=== PATIENT | female | born 1960 | race Caucasian/White ===

== ENCOUNTER 2016-08-21 23:45 | Emergency (ER) | payer MEDICARE ==
[2016-08-22 00:01] VITALS: RESP 18
[2016-08-22] MEDS ORDERED: HYDROmorphone 1 MG/ML 1 ML SYRINGE IM STA (01:38)
--- NOTE | 2016-08-22 01:41 | ED ---
Back Pain HPI - General Chief Complaint: Back Pain/Injury Stated Complaint: back/neck pain Time Seen by Provider: 08/22/16 01:15 Source: patient, RN notes reviewed Limitations: no limitations - History of Present Illness Initial Comments: Patient is a 56-year-old female presents to the emergency room for evaluation of back pain. Patient states she has a history of chronic back pain. Patient states she's had multiple surgeries on her lower back and neck. Patient states that over the past 2 days and having increasing low back pain. Patient states that she was helping her friend move 2 heavy refrigerators which worsened her back pain. Patient states the pain radiates down her legs. Patient denies paresthesias. Patient denies fecal or urinary incontinence. Patient denies saddle anesthesia. Patient states that she has not had any pain medications at home. Patient states that she took 2 of her friends [place] with slight relief of symptoms. Patient denies any recent fall or trauma to her back. Patient states she can't get comfortable secondary to back pain. Patient states this feels like her usual back pain. Patient denies any new symptoms. - Related Data Home Medications Medication Instructions Recorded Confirmed Cyclobenzaprine [Flexeril] 10 mg PO HS 08/22/16 08/22/16 HYDROcodone/APAP 10-325MG [[place] 08/22/16 10-325] Previous Rx's Medication Instructions Recorded HYDROcodone/APAP 5-325MG [[place] 1 tab PO Q6HR PRN #12 tab 08/22/16 5-325] Allergies Allergy/AdvReac Type Severity Reaction Status Date / Time gentamicin Allergy Anaphylaxis Verified 08/22/16 00:01 Review of Systems ROS Statement: Those systems with pertinent positive or pertinent negative responses have been documented in the HPI. ROS Other: All systems not noted in ROS Statement are negative. Past Medical History Past Medical History: Asthma, CVA/TIA History of Any Multi-Drug Resistant Organisms: None Reported Past Surgical History: Back Surgery Additional Past Surgical History / Comment(s): neck sx. Past Psychological History: No Psychological Hx Reported Smoking Status: Current every day smoker Past Alcohol Use History: Occasional Past Drug Use History: Marijuana General Exam - General Exam Comments Initial Comments: Sitting in exam room, no acute distress. Limitations: no limitations General appearance: alert, in no apparent distress Head exam: Present: atraumatic, normocephalic, normal inspection Eye exam: Present: normal appearance ENT exam: Present: normal exam Neck exam: Present: normal inspection Respiratory exam: Absent: respiratory distress Extremities exam: Present: normal inspection Back exam: Present: normal inspection. Absent: paraspinal tenderness, vertebral tenderness Neurological exam: Present: alert, oriented X3, CN II-XII intact Psychiatric exam: Present: normal affect, normal mood Skin exam: Present: warm, dry, intact, normal color. Absent: rash Course Vital Signs 08/21/16 08/22/16 23:56 02:17 Temperature 98.0 F 98.1 F Pulse Rate 91 89 Respiratory 18 18 Rate Blood Pressure 152/84 148/87 O2 Sat by Pulse 94 L 95 Oximetry Medical Decision Making - Medical Decision Making Patient is a 56-year-old female presents to the emergency room for evaluation of acute on chronic back pain. Patient given pain medications and advised follow-up with primary care provider mobile paint specialist. Patient has no neuro deficits. Patient states she understands everything that was discussed with her. Return parameters discussed. Disposition Clinical Impression: Acute exacerbation of chronic low back pain Disposition: HOME SELF-CARE Condition: Good Instructions: Chronic Back Pain (ED) Additional Instructions: Take [place] as needed for pain. Please follow up with primary care provider mobile paint specialist. If any new symptom arises or symptoms worsen, return to ER as soon as possible. Prescriptions: HYDROcodone/APAP 5-325MG [[place] 5-325] 1 tab PO Q6HR PRN #12 tab PRN Reason: Pain Referrals: None,Stated [Primary Care Provider] - 1-2 days Time of Disposition: 01:50
[2016-08-22 02:18] VITALS: BP 148/87; PULSE 89; TEMP 98.1
== END 2016-08-22 02:18 | disposition home or self-care (01) ==
LOC: EC 23:45
DX: G89.29 Other chronic pain (principal); M54.5 Low back pain; F17.200 Nicotine dependence, unspecified, uncomplicated; Z79.899 Other long term (current) drug therapy; Z79.891 Long term (current) use of opiate analgesic; Z88.0 Allergy status to penicillin; Z98.890 Other specified postprocedural states
CPT/HCPCS: 99283; 96372; J1170

== ENCOUNTER 2016-09-29 18:17 | Emergency (ER) | payer MEDICARE ==
[2016-09-29 18:42] VITALS: BP 154/88; PULSE 82; RESP 18; TEMP 97
[2016-09-29] MEDS ORDERED: ORPHENADRINE 30 MG/ML 2 ML VIAL IM STA (18:56)
[2016-09-29] MEDS ORDERED: HYDROcodone/APAP 10-325MG 1 EACH TAB PO ONE (18:56)
[2016-09-29] MEDS ORDERED: KETOROLAC 60 MG/2 ML VIAL IM STA (18:56)
--- NOTE | 2016-09-29 19:16 | ED ---
Back Pain HPI - General Chief Complaint: Back Pain/Injury Stated Complaint: back pain Time Seen by Provider: 09/29/16 18:44 Source: patient, RN notes reviewed, old records reviewed Limitations: no limitations - History of Present Illness Initial Comments: 48-year-old female presents the ED chief complaint of acute exacerbation of chronic back pain. Patient reports that she was lifting a couch and yesterday he noticed that her pain back pain has been getting worse. She reports that she is just been taking Motrin with little relief of the pain. She states that she did not fall. She denies any saddle anesthesia peripheral paresthesias. She reports that she has no abnormal popping in her back and does have full range of motion just with increased pain with movement. She states it mainly is in the lower back does not have any radiation to bilateral legs. Patient denies any recent fever, chills, shortness of breath, chest pain, back pain, abdominal pain, nausea vomiting, numbness or tingling, dysuria or hematuria, constipation or diarrhea, headaches or visual changes, or any other current symptoms - Related Data Home Medications Medication Instructions Recorded Confirmed Advair (Unknown Dose) 1 puff INHALATION RT-DAILY PRN 09/29/16 09/29/16 Previous Rx's Medication Instructions Recorded Cyclobenzaprine [Flexeril] 10 mg PO TID #15 tab 09/29/16 HYDROcodone/APAP 10-325MG [[place] 1 tab PO Q4HR PRN #15 tab 09/29/16 10-325] Allergies Allergy/AdvReac Type Severity Reaction Status Date / Time gentamicin Allergy Anaphylaxis Verified 09/29/16 19:08 Review of Systems ROS Statement: Those systems with pertinent positive or pertinent negative responses have been documented in the HPI. ROS Other: All systems not noted in ROS Statement are negative. Past Medical History Past Medical History: Asthma, CVA/TIA History of Any Multi-Drug Resistant Organisms: None Reported Past Surgical History: Back Surgery Additional Past Surgical History / Comment(s): neck sx. spleenectomy Past Psychological History: No Psychological Hx Reported Smoking Status: Current every day smoker Past Alcohol Use History: Rare Past Drug Use History: None Reported General Exam - General Exam Comments Initial Comments: Well-appearing 48-year-old female. No acute distress. Limitations: no limitations General appearance: alert, in no apparent distress Head exam: Present: atraumatic, normocephalic, normal inspection Eye exam: Present: normal appearance, PERRL, EOMI. Absent: scleral icterus, conjunctival injection, periorbital swelling ENT exam: Present: normal exam, mucous membranes moist Neck exam: Present: normal inspection. Absent: tenderness, meningismus, lymphadenopathy Respiratory exam: Present: normal lung sounds bilaterally. Absent: respiratory distress, wheezes, rales, rhonchi, stridor Cardiovascular Exam: Present: regular rate, normal rhythm, normal heart sounds. Absent: systolic murmur, diastolic murmur, rubs, gallop, clicks GI/Abdominal exam: Present: soft, normal bowel sounds. Absent: distended, tenderness, guarding, rebound, rigid Extremities exam: Present: normal inspection, full ROM, normal capillary refill. Absent: tenderness, pedal edema, joint swelling, calf tenderness Back exam: Present: normal inspection, tenderness (Lumbar spinal tenderness.) Neurological exam: Present: alert, oriented X3, CN II-XII intact Psychiatric exam: Present: normal affect, normal mood Skin exam: Present: warm, dry, intact, normal color. Absent: rash Course Vital Signs 09/29/16 18:40 Temperature 97.0 F L Pulse Rate 82 Respiratory 18 Rate Blood Pressure 154/88 O2 Sat by Pulse 97 Oximetry Medical Decision Making - Medical Decision Making 48-year-old female chief complaint acute exacerbation of chronic back pain after lifting a couch. She states she has no falls or any other known injuries. Patient elects to not receive imaging studies at this time. Discusses 100% necessary given her symptoms she she is given IM Toradol and Norflex in one by mouth [place]. Patient will be discharged with Flexeril and [place]. Discussed close follow-up with primary care physician. Patient agrees treatment plan will comply. Return parameters were discussed. Disposition Clinical Impression: Acute exacerbation of chronic low back pain Disposition: HOME SELF-CARE Condition: Good Instructions: Acute Low Back Pain (ED) Additional Instructions: Patient is to rest, ice, and apply heat to lower back. Take the medications as directed. Follow-up with a primary care physician. Return to the emergency department if any alarming symptoms occur. Prescriptions: Cyclobenzaprine [Flexeril] 10 mg PO TID #15 tab HYDROcodone/APAP 10-325MG [[place] 10-325] 1 tab PO Q4HR PRN #15 tab PRN Reason: Pain Referrals: None,Stated [Primary Care Provider] - 1-2 days Bhavani Weaver MD [STAFF PHYSICIAN] - 1-2 days Time of Disposition: 19:15
== END 2016-09-29 19:23 | disposition home or self-care (01) ==
LOC: EC 18:17
DX: G89.29 Other chronic pain (principal); M54.5 Low back pain; F17.200 Nicotine dependence, unspecified, uncomplicated; Z88.1 Allergy status to other antibiotic agents; Z98.890 Other specified postprocedural states
CPT/HCPCS: 99283; 96372 ×2; J2360; J1885

== ENCOUNTER 2016-11-19 11:00 | Emergency (ER) | payer MEDICARE, OTHER ==
[2016-11-19 11:17] VITALS: BP 138/78; PULSE 94; RESP 18; TEMP 97.8
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
[2016-11-19] MEDS ORDERED: HYDROcodone/APAP 7.5-325MG 1 EACH TAB PO STA (11:45)
== END 2016-11-19 11:55 | disposition home or self-care (01) ==
LOC: EC 11:00
DX: M54.32 Sciatica, left side (principal); M54.31 Sciatica, right side; F17.200 Nicotine dependence, unspecified, uncomplicated; Z88.1 Allergy status to other antibiotic agents
CPT/HCPCS: 99283

== ENCOUNTER → 2017-04-19 | Outpatient (CLI) | payer MEDICARE, OTHER ==
[2017-04-19 14:43] LABS: T4, Free (Free Thyroxine) 2.28 ng/dL (0.78-2.19)
== END | disposition home or self-care (01) ==
LOC: LABWHC1 13:28
PROVIDERS: ATTEND Physician Assistant
DX: R03.0 Elevated blood-pressure reading, without diagnosis of hypertension (principal)
CPT/HCPCS: 36415; 84439; 84443

== ENCOUNTER 2017-06-30 12:11 | Emergency (ER) | payer MEDICARE, OTHER ==
[2017-06-30 12:39] VITALS: BP 138/88; PULSE 79; RESP 18; TEMP 97.6
[2017-06-30] MEDS ORDERED: KETOROLAC 30 MG/ML 1 ML VIAL IM STA (13:29)
--- NOTE | 2017-06-30 13:34 | XR ---
EXAMINATION TYPE: XR hand complete LT DATE OF EXAM: 06/30/2017 CLINICAL HISTORY: pain TECHNIQUE: Frontal, lateral and oblique images of the left hand are obtained. COMPARISON: None. FINDINGS: There is no acute fracture/dislocation evident. The joint spaces appear within normal limi ts. The overlying soft tissue appears unremarkable. IMPRESSION: There is no acute fracture or dislocation. ICD 10 NO FRACTURE, INITIAL EVALUATION
--- NOTE | 2017-06-30 13:38 | XR ---
EXAMINATION TYPE: XR forearm LT DATE OF EXAM: 06/30/2017 CLINICAL HISTORY: Pain and swelling down arm into hand. TECHNIQUE: Two views of the left forearm are obtained. COMPARISON: None. FINDINGS: There is no acute fracture or dislocation seen in the left radius or ulna. The left elbow and wrist joints appear within normal limits. The overlying soft tissue appears within normal limit s. IMPRESSION: There is no acute fracture or dislocation seen in the left radius or ulna.
--- NOTE | 2017-06-30 14:11 | ED ---
General Adult HPI - General Chief complaint: Extremity Injury, Upper Stated complaint: Elbow to hand pain, Numbness in hand Time Seen by Provider: 06/30/17 12:59 Source: patient, RN notes reviewed Mode of arrival: ambulatory Limitations: no limitations - History of Present Illness Initial comments: 57-year-old female presents to the emergency department for a chief complaint of left upper extremity pain 6 months. Patient states the pain as a sharp shooting pain from her elbow into her fourth and fifth digit. Patient also has numbness in the fourth and fifth digits. Patient states she seen her primary care provider for this to set up a neurology appointment for her in 3 weeks. Patient states she also used to have a pain specialist but stopped going to him because she didn't like his methods. She is trying to get set up with another pain specialist through her primary care. Patient states the pain was worse last night and she now has a burning pain in the fourth and fifth digits of her left hand. Patient denies any recent injuries. The patient denies any chest pain or shortness of breath. Patient states she has chronic back problems including multiple back surgeries. Patient denies any back pain at this time. Patient denies any pain in the upper part of the arm or shoulder. Patient denies any other complaints at this time including chest pain, shortness of breath, abdominal pain, nausea or vomiting. - Related Data Previous Rx's Medication Instructions Recorded Aspirin 81 mg PO DAILY chew 04/06/17 Budesonide [Pulmicort Flexhaler] 2 puff INHALATION BID #1 inhaler 04/06/17 Ipratropium [place] [Atrovent Hfa] 2 puff INHALATION QID #1 inhaler 04/06/17 Melatonin 3 mg PO HS tablet 04/06/17 Nicotine 21Mg/24Hr Patch [Habitrol] 1 patch TRANSDERM DAILY #30 patch 04/06/17 Nicotine Polacrilex [Nicorette] 2 mg BUCCAL Q4HR PRN #30 gum 04/06/17 predniSONE 10 mg PO DAILY #30 tab 04/06/17 Ibuprofen [Motrin] 600 mg PO Q8HR PRN #20 tab 06/30/17 methylPREDNISolone Dose Pack 4 mg PO DIRECTED #21 package 06/30/17 [Medrol Dose Pack] Allergies Allergy/AdvReac Type Severity Reaction Status Date / Time gentamicin Allergy Anaphylaxis Verified 06/30/17 12:39 Review of Systems ROS Statement: Those systems with pertinent positive or pertinent negative responses have been documented in the HPI. ROS Other: All systems not noted in ROS Statement are negative. 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 spleenectomy-d/ t injury; benign R Breast lumpectomy, sinus sx Past Anesthesia/Blood Transfusion Reactions: No Reported Reaction Past Psychological History: Depression Smoking Status: Current every day smoker Past Alcohol Use History: Rare Past Drug Use History: None Reported - Past Family History Mother Family Medical History: Cancer Additional Family Medical History / Comment(s): Father History Unknown: Yes General Exam Limitations: no limitations General appearance: alert, in no apparent distress Head exam: Present: atraumatic, normocephalic, normal inspection Eye exam: Present: normal appearance, PERRL, EOMI. Absent: scleral icterus, conjunctival injection, periorbital swelling Neck exam: Present: normal inspection, full ROM. Absent: tenderness, meningismus, lymphadenopathy Respiratory exam: Present: normal lung sounds bilaterally. Absent: respiratory distress, wheezes, rales, rhonchi, stridor Cardiovascular Exam: Present: regular rate, normal rhythm, normal heart sounds. Absent: systolic murmur, diastolic murmur, rubs, gallop, clicks Extremities exam: Present: full ROM (of the LUE. ), normal capillary refill ( Cap refill < 2 seconds in LUE. Radial pulse 2+ in the LUE. ), other (Patient states she has numbness and tingling in the fourth and fifth digit of the left hand and pain in the left arm from the elbow to the fingers. Patient does have intact sensation in the left upper extremity including the fourth and fifth digits of the right hand. Patient has full strength in the left hand including digits adduction and abduction. Patient has full range of motion of the right hand. ). Absent: tenderness (No tenderness in the LUE. No tenderness at the area of ulnar entrapment medial epicondyle.), pedal edema, joint swelling (No swelling in the LUE.), calf tenderness Course Vital Signs 06/30/17 12:37 Temperature 97.6 F Pulse Rate 79 Respiratory 18 Rate Blood Pressure 138/88 O2 Sat by Pulse 95 Oximetry Medical Decision Making - Medical Decision Making 57-year-old female presents to the emergency department for a chief complaint of left upper extremity pain from the elbow to the hand 6 months. Patient states it has worsened in the past couple weeks. Patient has an appointment with neurology July 20 a set up by her primary care provider for this problem. Patient has had pain specialists in the past but does not have one at this time. Patient complains of sharp pain from the elbow to the hand and numbness in the fourth and fifth digits of the left hand. Patient denies any pain in her shoulder or upper arm. Patient denies any other complaints including chest pain, shortness of breath, abdominal pain, nausea or vomiting. Vitals are within normal limits. Exam was unremarkable. Patient has full range of motion of the left upper extremity, no joint swelling, intact sensation in the left hand, and full range of motion and strength in the left hand. Neurovascular intact. patient has a history of back surgeries although no pain in the back today. Discussed with Dr. Fang And he agrees this is likely related to a nerve disorder. Patient was given Toradol in the emergency department and is feeling much better. Discussed with patient to continue taking Motrin as well as a steroid pack for inflammation. Patient stated that she has bought opioids "on the street" in the past so was given a prescription of only Motrin in the steroid pack. She is to follow-up in one to 2 days with primary care. She is to try to move her neurology appointment up. If she cannot move it closer to today's date she will attend the appointment on the . She will return to the emergency Department if she has any worsening or changing symptoms Disposition Clinical Impression: Paresthesia Disposition: HOME SELF-CARE Condition: Good Instructions: Paresthesia (ED) Additional Instructions: Please take the steroid pack as directed as well as Motrin or Tylenol for pain relief. Please return to the emergency department if you have any worsening symptoms. Otherwise follow-up with your primary care provider in one to 2 days and attend your neurology appointment on July 20. Prescriptions: Ibuprofen [Motrin] 600 mg PO Q8HR PRN #20 tab PRN Reason: Pain methylPREDNISolone Dose Pack [Medrol Dose Pack] 4 mg PO DIRECTED #21 package Is patient prescribed a controlled substance at d/c from ED?: No Referrals: Fidencio Lee DO [Primary Care Provider] - 1-2 days Time of Disposition: 14:12
== END 2017-06-30 14:36 | disposition home or self-care (01) ==
LOC: EC 12:11 → SUPCPDRO 12:11 → EC 14:36
DX: R20.2 Paresthesia of skin (principal); M25.522 Pain in left elbow; M79.642 Pain in left hand; M79.645 Pain in left finger(s); M79.602 Pain in left arm; F17.200 Nicotine dependence, unspecified, uncomplicated; Z88.1 Allergy status to other antibiotic agents
CPT/HCPCS: 73090; 73130; 99283; 96372; J1885

== ENCOUNTER → 2017-08-07 | Outpatient (CLI) | payer MEDICARE, OTHER ==
--- NOTE | 2017-08-08 00:20 | MR ---
EXAMINATION TYPE: MR michelet/lsannita wo con DATE OF EXAM: 08/07/2017 COMPARISON: NONE HISTORY: Neck pain. Back pain. TECHNIQUE: Multiplanar, multisequence imaging of the lumbar spine and cervical spine is performed wit hout IV contrast. FINDINGS: There is metal artifact from anterior fusion surgery from C3 to C7. There is degenerative disc space narrowing throughout the cervical spine. I see no compression fracture. Detail is limited from the me dominga artifact. Cervical spinal cord shows no edema. Brainstem appears intact. There is small posterior disc bulging at C7-T1 and T1-T2. There is no evidence of cervical spinal cord edema. I see no parasp inal mass. There is some narrowing of the spinal canal to 8 mm at C7-T1. There is 7 mm anterior subluxation of L3 in relation L4. There is mild degenerative disc space narrow ing throughout the lumbar spine more severe at L5-S1. There is posterior fusion surgery at L4 L5 S1. There appears to be a moderately severe spinal stenosis at L3-4 due to the subluxation and facet arth ropathy. The detail is slightly limited due to the metal artifact. There is 10 mm cyst in the posteri or right kidney. There is no lumbar compression fracture. IMPRESSION: In the cervical spine there is some mild relative spinal stenosis at C7-T1 of 8 mm. No evidence of co rd edema. No fracture. Multilevel fusion surgery. Degenerative first-degree L3-4 spondylolisthesis with moderate bony spinal stenosis at L3-4. No compr ession fracture. Posterior fusion surgery.
== END | disposition home or self-care (01) ==
LOC: RADMRIMAIN 17:01
PROVIDERS: ATTEND Family Medicine
DX: M48.03 Spinal stenosis, cervicothoracic region (principal); M43.16 Spondylolisthesis, lumbar region; M48.061 Spinal stenosis, lumbar region without neurogenic claudication; M47.816 Spondylosis without myelopathy or radiculopathy, lumbar region; Z98.1 Arthrodesis status
CPT/HCPCS: 72141; 72148

== ENCOUNTER → 2017-08-09 | Outpatient (CLI) | payer MEDICARE, OTHER ==
--- NOTE | 2017-08-10 16:26 | MR ---
EXAMINATION TYPE: MR thoracic spine wo con DATE OF EXAM: 08/09/2017 COMPARISON: MRI of the cervical spine and lumbar spine dated 08/07/2017. HISTORY: Other Chronic Pain TECHNIQUE: Standard multiplanar, multisequence MRI of the thoracic spine was performed per department al protocol without intravenous contrast as the patient refused contrast. FINDINGS: The vertebral bodies of the thoracic spine maintain vertebral body heights and alignment. S urgical changes seen of the cervical spine on the localizer images. The previously seen disc bulge at C7-T1 is not well visualized as axial images begin at T1-T2. Thoracic cord signal is unremarkable. T1-T2: There is a small broad-based disc bulge without spinal canal stenosis or neural foraminal narr owing. T2-T3: There is a right eccentric disc bulge creating moderate right neural foraminal narrowing and m ild spinal canal stenosis as there is narrowing of the ventral subarachnoid space. Left neural forame n appears patent. T3-T4: There is a small broad-based disc bulge without focality to indicate herniation. This results in mild left and moderate right neural foraminal narrowing. No spinal canal stenosis. T4-T5: There is a very small broad-based disc bulge without spinal canal stenosis or neural foraminal narrowing. T5-T6: There is a very small broad-based disc bulge without spinal canal stenosis or neural foraminal narrowing. T6-T9: No significant spinal canal stenosis or neural foraminal narrowing. No significant disc diseas e. T9-T10: There is a very small central disc herniation minimally narrowing the ventral subarachnoid sp ching. No significant spinal canal stenosis. No neural foraminal narrowing is seen. T10-T11: There is a small broad-based disc bulge resulting in minimal bilateral neural foraminal narr owing. No spinal canal stenosis. T11-T12: No significant spinal canal stenosis, disc disease, neuroforaminal narrowing. T12-L1: There is a small right eccentric disc bulge without significant spinal canal stenosis or neur al foraminal narrowing. IMPRESSION: 1. Right eccentric disc bulge at T2-T3 creating moderate right neural foraminal narrowing and mild sp inal canal stenosis. 2. Small broad-based disc bulge at T3-T4 resulting in mild left and moderate right neural foraminal n arrowing. No spinal canal stenosis. 3. Very small central disc herniation at T9-T10 without spinal canal stenosis or neural foraminal petrona rowing. 4. No evidence of abnormal bone marrow signal, vertebral body height loss, or malalignment. No abnorm al thoracic cord signal.
== END | disposition home or self-care (01) ==
LOC: RADMRIMAIN 13:19
PROVIDERS: ATTEND Family Medicine
DX: M48.04 Spinal stenosis, thoracic region (principal); M99.72 Connective tissue and disc stenosis of intervertebral foramina of thoracic region; M51.24 Other intervertebral disc displacement, thoracic region
CPT/HCPCS: 72146

== ENCOUNTER 2017-10-02 11:20 | Emergency (ER) | payer MEDICARE, OTHER ==
[2017-10-02 11:52] VITALS: BP 154/90; PULSE 79; RESP 18; TEMP 98.3
--- NOTE | 2017-10-02 12:17 | XR ---
EXAMINATION TYPE: XR wrist complete LT DATE OF EXAM: 10/02/2017 CLINICAL HISTORY: Fall and subsequent left wrist pain TECHNIQUE: Frontal, lateral and oblique images of the left wrist are obtained. Scaphoid view of the left wrist was also obtained. COMPARISON: None FINDINGS: There is mild osseous demineralization. There is no acute fracture/dislocation evident in t he left wrist. The joint spaces in the left wrist appear within normal limits. The overlying soft t issue appears unremarkable. IMPRESSION: There is no acute fracture or dislocation in the left wrist.
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
== END 2017-10-02 12:45 | disposition home or self-care (01) ==
LOC: EC 11:20
DX: S69.92XA Unspecified injury of left wrist, hand and finger(s), initial encounter (principal); F17.200 Nicotine dependence, unspecified, uncomplicated; Z86.73 Personal history of transient ischemic attack (TIA), and cerebral infarction without residual deficits; Z88.1 Allergy status to other antibiotic agents; V18.4XXA Pedal cycle driver injured in noncollision transport accident in traffic accident, initial encounter; Y93.55 Activity, bike riding
CPT/HCPCS: 29125; 99283

== ENCOUNTER → 2017-12-06 | Outpatient (CLI) | payer MEDICARE, OTHER ==
--- NOTE | 2017-12-07 15:15 | MR ---
MR brain without contrast HISTORY: Migraine headache multiplanar multisequence imaging obtained through the brain. No comparisons Patient refused intravenous contrast There is no restricted diffusion to suggest subacute ischemia. There is no hemorrhage or hydrocephalu s. Inflammatory changes are present in the bilateral mastoid air cells. Mucoperiosteal thickening pre sent in the maxillary sinuses, ethmoid air cells. Orbits show symmetric appearance. There are normal vascular flow voids. Cerebellopontine angles, corpus callosum, pituitary, cervical medullary junction are normal. Periventricular, pericallosal, subcortical and deep white matter hyperintensities are pr esent on inversion recovery and T2-weighted sequences, there are approximately 30 lesions present, la rgest in the posterior parietal white matter, axial image 19 measures 7-8 mm. IMPRESSION: Nonspecific white matter demyelination, consider hypertension, migraine headaches, chroni c small vessel ischemia and vasculitis, multiple sclerosis in the appropriate clinical setting, Lyme disease. Bilateral abnormal signal within the mastoid air cells, temporal bone CT may be of benefit, consider mastoiditis. Sinus disease.
== END | disposition home or self-care (01) ==
LOC: RADMRIMAIN 19:12
PROVIDERS: ATTEND Family Medicine
DX: G37.9 Demyelinating disease of central nervous system, unspecified (principal); G43.909 Migraine, unspecified, not intractable, without status migrainosus; I67.82 Cerebral ischemia; I67.7 Cerebral arteritis, not elsewhere classified; A69.20 Lyme disease, unspecified
CPT/HCPCS: 70551

== ENCOUNTER → 2019-04-05 | Outpatient (CLI) | payer MEDICARE, OTHER ==
[2019-04-05 12:04] LABS: Basophils # (A) 0.4 k/uL (0-0.2); Basophils % (A) 3 %; Eosinophils # (A) 0.2 k/uL (0-0.7); Eosinophils % (A) 2 %; HCT 47.7 % (34.0-46.0); HGB 14.4 gm/dL (11.4-16.0); Hypochromasia Slight; Lymphocytes # (A) 4.3 k/uL (1.0-4.8); Lymphocytes % (A) 36 %; MCH 26.8 pg (25.0-35.0); MCHC 30.2 g/dL (31.0-37.0); MCV 88.6 fL (80.0-100.0); Mean Platelet Volume 7.9; Monocytes # (A) 0.8 k/uL (0-1.0); Monocytes % (A) 6 %; Neutrophils # (A) 6.2 k/uL (1.3-7.7); Neutrophils % (A) 51 %; Platelet Count 517 k/uL (150-450); RBC 5.38 m/uL (3.80-5.40); WBC 12.1 k/uL (3.8-10.6)
[2019-04-05 12:13] LABS: Appearance,Urine Cloudy (Clear); Bacteria,Urine Moderate /hpf; Bilirubin,Urine Negative (Negative); Blood,Urine Moderate (Negative); Budding Yeast,Urine Moderate /hpf; Color,Urine Yellow; Glucose,Urine (UA) Negative (Negative); Ketones,Urine Negative (Negative); Leukocyte Esterase,Urine Large (Negative); Mucus,Urine Few /hpf; Nitrite,Urine Negative (Negative); PH, Urine 5.5 (5.0-8.0); Protein,Urine 2+ (Negative); RBC,Urine >182 /hpf (0-5); Urobilinogen,Urine <2.0 mg/dL (<2.0); WBC,Urine >182 /hpf (0-5)
[2019-04-05 12:16] LABS: African American GFR (CKD) >90 (>60 ml/min/1.73 sqM); Anion Gap 9 mmol/L; Blood Urea Nitrogen 13 mg/dL (7-17); Calcium 9.8 mg/dL (8.4-10.2); Carbon Dioxide 26 mmol/L (22-30); Chloride 108 mmol/L (98-107); Glucose 101 mg/dL (74-99); Non-African American GFR(CKD) >90 (>60 ml/min/1.73 sqM); Potassium 4.2 mmol/L (3.5-5.1); Sodium 143 mmol/L (137-145)
== END | disposition home or self-care (01) ==
LOC: LABPAT 11:26
DX: Z01.812 Encounter for preprocedural laboratory examination (principal); N20.1 Calculus of ureter; R31.21 Asymptomatic microscopic hematuria
CPT/HCPCS: 36415; 80048; 81001; 85025; 87086

== ENCOUNTER 2019-04-30 13:09 | Day surgery (SDC) | payer MEDICARE, OTHER ==
[2019-04-25 11:11] VITALS: BMI 35.6
--- NOTE | 2019-04-29 15:47 | P.HPIHPCON ---
History of Present Illness H&P Date: 04/30/19 Chief Complaint: ureteral stone Ms Saxena is 58 yo female with hx of 5 mm left sided ureteral stone and right sided non-obstructive stone. She is S/P ureteral stent placement for septic stone on 02/22/19. I discussed with her the option of bilateral ureteroscopy to address her kidney stones. I discussed with her the risk of bleeding, infection, injury to the ureter and sepsis. I also discussed risk from anesthesia with her which include heart attack, stroke, blood clots and even loss of life. I did discussed her she is at an increased risk of complication given her hx of sepsis and recurrent UTIs Consent for Procedure: I have explained the operation/procedure to the patient, including the risks, benefits, side effects, alternative therapies (including not receiving the proposed treatment or service), the likelihood of the patient achieving his/her goals, and potential recuperation problems for the procedure/sedation/analgesia, as well as any blood products, if indicated. I also explained to the patient the risks, benefits and side effects of the alternatives, as well as the risks related to not receiving the proposed procedure, care, treatment, or services. Past Medical History Past Medical History: Asthma, CVA/TIA, Liver Disease, Musculoskeletal Disorder Additional Past Medical History / Comment(s): back pain; "several tia's-Last TIA 1 1/2 YEARS AGO, pluerisy, migraines, past falls, KIDENY STONES History of Any Multi-Drug Resistant Organisms: None Reported Past Surgical History: Back Surgery, Breast Surgery, Hysterectomy Additional Past Surgical History / Comment(s): back sx, neck sx. spleenectomy- d/t injury; benign R Breast lumpectomy, sinus sx, BILAT URETEROSCOPY, PLASTIC SX TO FACE Past Anesthesia/Blood Transfusion Reactions: No Reported Reaction Smoking Status: Current every day smoker - Past Family History Mother Family Medical History: Cancer Additional Family Medical History / Comment(s): Father History Unknown: Yes Family Medical History: No Reported History Medications and Allergies Home Medications Medication Instructions Recorded Confirmed Type Albuterol Inhaler [Ventolin Hfa 1 - 2 puff INHALATION RT-Q6H PRN 04/11/19 04/25/19 History Inhaler] Aspirin 325 mg PO DAILY 04/11/19 04/25/19 History Fluticasone/Salmeterol [Advair 1 inhalation PO BID PRN 04/11/19 04/25/19 History 500-50 Diskus] HYDROcodone/APAP 10-325MG [[place]arker 1 tab PO Q4-6H PRN 04/11/19 04/25/19 History 10-325] Cephalexin [Keflex] 250 mg PO Q8HR 04/25/19 04/25/19 History Allergies Allergy/AdvReac Type Severity Reaction Status Date / Time gentamicin Allergy Anaphylaxis Verified 04/25/19 10:50 Surgical - Exam - General no distress, no pain - Respiratory normal expansion, normal respiratory effort - Abdomen Abdomen: soft, non tender - Psychiatric oriented to time, oriented to person, oriented to place Assessment and Plan Assessment: 58 yo male with hx of 5 mm left sided ureteral stone S/P Ureteral stent placement, and right sided non-obstructive stone -OR for bilateral ureteroscopy, holmium laser lithotripsy, stone basketting and stent placement
[~2019-04-30 13:09] MED LIST: DEXAMETHASONE SOD PHOSPHATE 10 MG/ML 1 ML VIAL IV ONE; HYDROmorphone 0.5 MG/0.5 ML SYRINGE IVP PRN; LACTATED RINGERS 1,000 ML IV SCH; LIDOCAINE 1% 20 ML VIAL (10MG/ML) FOR IV START INTRADERMA PRN; ONDANSETRON 4 MG/2 ML VIAL IVP ONE; SCOPOLAMINE 1.5MG/72HR PATCH TRANSDERM ONE
[2019-04-30] MEDS ORDERED: IOPAMIDOL-370 50ML BTL MISCELLANE ONE (14:05)
--- NOTE | 2019-04-30 14:10 | XR ---
EXAMINATION TYPE: XR KUB DATE OF EXAM: 04/30/2019 Comparison: 04/04/2017 Clinical History: Pmy-tpth-[id number] female Bilateral Ureteral Calculi N20. Findings: 5 mm nonobstructive right mid pole renal calculus. 8 mm calcification projecting at the expected lowe r pole of the right kidney. A left ureteral stent is in place. Overlying bowel contents obscures the left renal shadow. Lower lumbar posterior fusion hardware. Nonobstructive bowel gas pattern. Impression: 1. Right-sided nephrolithiasis measuring 8 mm and 5 mm. 2. A left ureteral stent is in place. Prominent bowel content obscures the left kidney.
[2019-04-30] MEDS ORDERED: SUCCINYLCHOLINE CHLORIDE 100 MG/5 ML SYR IV ONE (14:43)
[2019-04-30] MEDS ORDERED: GLYCOPYRROLATE 0.2 MG/ML 2 ML VIAL ONE (14:43)
[2019-04-30] MEDS ORDERED: MIDAZOLAM 2 MG/2 ML VIAL ONE (14:43)
[2019-04-30] MEDS ORDERED: PROPOFOL 10 MG/ML 20 ML VIAL IV ONE (14:43)
[2019-04-30] MEDS ORDERED: LIDOCAINE 1% INJ 10MG/ML (20 ML MDV) ONE (14:43)
[2019-04-30] MEDS ORDERED: NEOSTIGMINE 1 MG/ML 10 ML VIAL ONE (14:43)
[2019-04-30] MEDS ORDERED: fentaNYL (PF) 50 MCG/ML 2 ML AMP ONE (14:43)
[2019-04-30] MEDS ORDERED: PHENYLEPHRINE-0.9% NACL SYG 1 MG/10 ML SYRINGE ONE (14:43)
[2019-04-30] MEDS ORDERED: ROCURONIUM BROMIDE 10 MG/ML 5 ML VIAL IV ONE (14:43)
[2019-04-30] MEDS: FLUCONAZOLE IN NACL,ISO-OSM 200 MG in SALINE 1 100ML.BAG IVPB ONE ×2 (15:28→16:08)
[2019-04-30] MEDS ORDERED: LACTATED RINGERS 1,000 ML IV ONE (15:57)
--- NOTE | 2019-04-30 17:31 | P.OP ---
Date of Procedure: 04/30/19 Preoperative Diagnosis: left ureteral stone, right l renal stones Postoperative Diagnosis: same Procedure(s) Performed: Cystoscopy, bilateral ureteroscopy, holmium laser lithotripsy, stone basketting, left stent exchange, right reterograde pyelogram and stent placement Implants: 6 Fr X 24 cm stent bilaterally Anesthesia: ALICIA Surgeon: Manuel Husain Estimated Blood Loss (ml): 10 Pathology: other (left ureteral calculi, right renal calculi) Condition: stable Disposition: PACU Indications for Procedure: Ms Saxena is 58 yo female with hx of 5 mm left sided ureteral stone and right sided non-obstructive stone. She is S/P ureteral stent placement for septic stone on 02/22/19. I discussed with her the option of bilateral ureteroscopy to address her kidney stones. I discussed with her the risk of bleeding, infection, injury to the ureter and sepsis. I also discussed risk from anesthesia with her which include heart attack, stroke, blood clots and even loss of life. I did discussed her she is at an increased risk of complication given her hx of sepsis and recurrent UTIs Operative Findings: left proximal impacted stone, with significant ureteral edema around the stone multiple bilaterall renal stones Description of Procedure: The patient was brought to the operating room, general anesthesia was induced. She was prepped and draped in sterile fashion placed in the lithotomy position. Cystoscopy fitted with a 22 sheath was inserted per urethra cystoscopy was performed which showed no abnormality within the bladder. Attention was then carried to the left ureteral orifice stent was grasped and removed intact. Cystoscopy was reinserted the left ureteral orifice was intubated with a 5- [place] open-ended catheter. Clear yellow urine was obtained from the left collecting system. Next a sensor wire was advanced through the ureteral catheter and the proximal curl was visualized in the renal pelvis on fluoroscopy. Next a semirigid ureteroscope was inserted and the stone was en countered, and the proximal ureter. Of note the stone was impacted, there was significant ureteral edema surrounding the stone. Stone was fragmented using the holmium laser. The fragments was removed using stone basket. Ureteroscope was withdrawn with the wire in place. Next an 11 x 13 access sheath was passed over the wire into the renal pelvis. Flexibile ureteroscope was inserted through the access sheath and renoscopy was performed which showed multiple small renal calculi. The stones were removed using a stone basket. Repeat ureteroscopy showed no additional stones in the left kidney. Pullback ureteroscopy was performed which showed no additional stone fragments, or injury to the ureter. The cystoscope was reinserted, the left ureteral orifice was intubated with a sensor wire. Next a ureteral stent was passed over the wire. The proximal curl was visualized on fluoroscopy and the distal curl was visualized using the cystoscope. Attention was then carried to the right side, the right ureteral orifice was intubated with 5-Brazilian open-ended catheter. Retrograde pyelogram was performed which showed no filling defect along the ureter or hydronephrosis. Next a sensor wire was advanced through the catheter advanced into the renal pelvis. Next 11-13 access sheath was advanced over the wire and into the proximal ureter. Next a flexible ureteroscope was advanced through the access sheath. Renoscopy was performed which showed multiple calculi in the lower pole and in the midpole of the kidney. Small calculi were removed using the stone basket. A larger calculi that was basketed and moved up to the upper pole. At this time the holmium laser was reinserted and the stone was fragmented into small fragments. The fragments were removed using the stone basket. Repeat ureteroscopy showed no sizable fragments or injury to the kidney. Pullback ureteroscopy was performed which showed no injury to the ureter or ureteral fragments. Next the cystoscope was reinserted and the right ureteral orifice was intubated with a sensor wire. Next ureteral stent was advanced over the wire, the proximal curl was visualized on fluoroscopy and the distal curl was visualized on the cystoscope. The bladder was emptied at the end of the case. The patient was awakened from anesthesia and taken to recovery in stable condition
[2019-04-30 17:32] VITALS: TEMP 97
[2019-04-30 17:59] VITALS: RESP 16
[2019-04-30 18:18] VITALS: BP 149/89; PULSE 64
--- NOTE | 2019-05-01 08:12 | FL ---
Fluoroscopy HISTORY: Bilateral stent placement 34 seconds fluoroscopy time supplied to the referring clinician. 3 intraoperative C-arm images docum ent the procedure. See dictated report from urology.
== END 2019-04-30 18:34 | disposition home or self-care (01) ==
LOC: OR 13:09
PROVIDERS: ATTEND Urology
DX: N20.2 Calculus of kidney with calculus of ureter (principal); J44.9 Chronic obstructive pulmonary disease, unspecified; G43.909 Migraine, unspecified, not intractable, without status migrainosus; F17.200 Nicotine dependence, unspecified, uncomplicated; Z88.1 Allergy status to other antibiotic agents; Z88.8 Allergy status to other drugs, medicaments and biological substances; Z86.19 Personal history of other infectious and parasitic diseases; Z87.440 Personal history of urinary (tract) infections; Z86.73 Personal history of transient ischemic attack (TIA), and cerebral infarction without residual deficits; Z87.19 Personal history of other diseases of the digestive system; Z87.39 Personal history of other diseases of the musculoskeletal system and connective tissue; Z87.09 Personal history of other diseases of the respiratory system; Z91.81 History of falling; Z98.890 Other specified postprocedural states; Z90.710 Acquired absence of both cervix and uterus; Z90.81 Acquired absence of spleen; Z80.9 Family history of malignant neoplasm, unspecified; Z79.899 Other long term (current) drug therapy; Z79.82 Long term (current) use of aspirin; Z79.51 Long term (current) use of inhaled steroids; Z79.2 Long term (current) use of antibiotics; Z97.2 Presence of dental prosthetic device (complete) (partial)
CPT/HCPCS: 82365; 74420; 74018; 52356; 52352; C2625; C1758; J2250; J1100; J2710; J0690; J2405; J2001; J3010; J1450; J2370; J0330; J2704; Q9967

== ENCOUNTER → 2020-07-13 | Day surgery (SDC) | payer MEDICARE, OTHER ==
[~2020-07-13] MED LIST changes: -DEXAMETHASONE SOD PHOSPHATE 10 MG/ML 1 ML VIAL IV ONE; -HYDROmorphone 0.5 MG/0.5 ML SYRINGE IVP PRN; -LACTATED RINGERS 1,000 ML IV SCH; -LIDOCAINE 1% 20 ML VIAL (10MG/ML) FOR IV START INTRADERMA PRN; +LIDOCAINE 1% INJ 10MG/ML (20 ML MDV) SQ ONE; -ONDANSETRON 4 MG/2 ML VIAL IVP ONE; -SCOPOLAMINE 1.5MG/72HR PATCH TRANSDERM ONE
[2020-07-13 10:24] VITALS: BP 155/88; PULSE 81; RESP 18; TEMP 98.1
--- NOTE | 2020-07-13 14:01 | IR ---
EXAMINATION TYPE: IR cvc insert >=5 years DATE OF EXAM: 07/13/2020 COMPARISON: NONE CLINICAL HISTORY: Chest pain, nausea and vomiting, bronchitis Needs long-term intravenous access for therapy. PROCEDURE: Hand hygiene obtained with soap and water and alcohol-based hand rub. After informed consent, the skin overlying the right basilic vein was localized with ultrasound and n oted to be compressible and patent. An ultrasound image was obtained and submitted on the patient's chart. The overlying skin was prepped and draped and Lidocaine was used for local anesthesia. A ski n rhys was made with a scalpel. Access was gained to the vein under ultrasound guidance with a 21 ga uge needle and a 0.018 inch wire was advanced. Access site was dilated with Peel-Away sheath and cat heter tailored to the appropriate length and advanced such that the distal tip is at the cavoatrial j unction. Spot image was obtained verifying placement. Catheter was fixed to the skin and a sterile dressing was placed following hemostasis. Catheter was aspirated and flushed with saline. Patient w as discharged in stable condition without complication. Maximal barrier technique is utilized. Ultra sound image is documented on the chart. Ultrasound used with sterile technique. Fluoro time and fluoroscopic images submitted to document procedure: 0.1 minutes fluoroscopy time, 10 0 intraoperative C-arm images document the procedure IMPRESSION: STATUS POST ULTRASOUND AND FLUOROSCOPIC GUIDED PICC LINE PLACEMENT, READY FOR USE. THIS PROCEDURE WAS PERFORMED BY THE UNDERSIGNED.
== END ==
LOC: CATHCVL 09:52
PROVIDERS: ATTEND Radiology Diagnostic Radiology
DX: C34.11 Malignant neoplasm of upper lobe, right bronchus or lung (principal); Z87.891 Personal history of nicotine dependence; Z79.899 Other long term (current) drug therapy; Z90.49 Acquired absence of other specified parts of digestive tract; Z90.710 Acquired absence of both cervix and uterus; Z98.890 Other specified postprocedural states
CPT/HCPCS: 36573; J2001

== ENCOUNTER 2020-08-08 22:31 | Inpatient (IN) | payer MEDICARE, OTHER ==
[2020-08-08] MEDS ORDERED: SODIUM CHLORIDE 0.9% 1,000 ML IV STA (23:09)
[2020-08-08] MEDS ORDERED: ACETAMINOPHEN IV (For NPO) 1,000 MG in EMPTY BAG 1 BAG IVPB STA (23:09)
[2020-08-08] MEDS ORDERED: KETOROLAC 15 MG/ML 1 ML VIAL IVP STA (23:09)
[2020-08-08] MEDS ORDERED: SODIUM CHLORIDE 0.9% 500 ML 500 ML IV STA (23:09)
--- NOTE | 2020-08-08 23:10 | ED ---
Fever HPI - General Chief Complaint: Fever Stated Complaint: cancer pt, fever Time Seen by Provider: 08/08/20 23:09 Source: patient, RN notes reviewed, old records reviewed Mode of arrival: wheelchair Limitations: no limitations - History of Present Illness Initial Comments: This is a 60-year-old female DF for evaluation of weakness shortness of breath not feeling well. Patient is that she can't catch her breath. Decreased appetite can drink. Patient does present with fever today. Weakness. No pain no chest pain no abdominal pain mild nausea vomiting positive diarrhea MD Complaint: fever, weakness -: days(s) Temperature Source: subjective Context: multiple patients with similar symptoms Associated Symptoms: chills, myalgias, nausea, vomiting, diarrhea Treatments Prior to Arrival: none - Related Data Home Medications Medication Instructions Recorded Confirmed HYDROcodone/APAP 10-325MG [[place] 1 tab PO QID PRN 04/11/19 08/09/20 10-325] ALPRAZolam [Xanax] 0.5 mg PO DAILY 08/09/20 08/09/20 Famotidine [Pepcid] 20 mg PO DAILY 08/09/20 08/09/20 Fluconazole [Diflucan] 400 mg PO DAILY 08/09/20 08/09/20 Folic Acid 1 mg PO DAILY 08/09/20 08/09/20 Ipratropium-Albuterol Nebulize 3 ml INHALATION RT-TID 08/09/20 08/09/20 [Duoneb 0.5 mg-3 mg/3 ml Soln] Naloxone HCl [Narcan] 4 mg NASAL ONCE PRN 08/09/20 08/09/20 OLANZapine [ZyPREXA] 5 mg PO DAILY 08/09/20 08/09/20 Omeprazole 40 mg PO DAILY 08/09/20 08/09/20 Pantoprazole Sodium [Protonix] 40 mg PO HS 08/09/20 08/09/20 buPROPion HCL [Wellbutrin XL] 150 mg PO BID 08/09/20 08/09/20 ondansetron HCL [Zofran] 8 mg PO Q6H PRN 08/09/20 08/09/20 Allergies Allergy/AdvReac Type Severity Reaction Status Date / Time gentamicin Allergy Anaphylaxis Verified 08/09/20 08:31 Review of Systems ROS Statement: Those systems with pertinent positive or pertinent negative responses have been documented in the HPI. ROS Other: All systems not noted in ROS Statement are negative. Past Medical History Past Medical History: Cancer Additional Past Medical History / Comment(s): back pain; "several tia's-Last TIA 1 1/2 YEARS AGO, pluerisy, migraines, past falls, "was told at [facility] she had non-alcoholic cirrhosis". lung cancer History of Any Multi-Drug Resistant Organisms: None Reported Past Surgical History: Back Surgery, Breast Surgery, Hysterectomy Additional Past Surgical History / Comment(s): back sx, neck sx. spleenectomy- d/t injury; benign R Breast lumpectomy, sinus sx Past Anesthesia/Blood Transfusion Reactions: No Reported Reaction Past Psychological History: Depression Smoking Status: Former smoker Past Alcohol Use History: None Reported Past Drug Use History: None Reported - Past Family History Mother Family Medical History: Cancer Additional Family Medical History / Comment(s): Father History Unknown: Yes Family Medical History: No Reported History General Exam Limitations: no limitations General appearance: alert, in no apparent distress, anxious Head exam: Present: atraumatic, normocephalic, normal inspection Eye exam: Present: normal appearance, PERRL, EOMI. Absent: scleral icterus, conjunctival injection, periorbital swelling ENT exam: Present: normal exam, mucous membranes dry Neck exam: Present: normal inspection. Absent: tenderness, meningismus, lymphadenopathy Respiratory exam: Present: normal lung sounds bilaterally. Absent: respiratory distress, wheezes, rales, rhonchi, stridor Cardiovascular Exam: Present: normal rhythm, tachycardia, normal heart sounds. Absent: systolic murmur, diastolic murmur, rubs, gallop, clicks GI/Abdominal exam: Present: soft, normal bowel sounds. Absent: distended, tenderness, guarding, rebound, rigid Extremities exam: Present: normal inspection, full ROM, normal capillary refill. Absent: tenderness, pedal edema, joint swelling, calf tenderness Back exam: Present: normal inspection Neurological exam: Present: alert, oriented X3, CN II-XII intact Psychiatric exam: Present: normal affect, normal mood Skin exam: Present: warm, dry, intact, normal color. Absent: rash Course Vital Signs 08/08/20 08/09/20 08/09/20 23:00 01:24 05:24 Temperature 99.9 F H 98.2 F 97.5 F L Pulse Rate 108 H 83 81 Respiratory 20 22 18 Rate Blood Pressure 123/75 112/74 137/71 O2 Sat by Pulse 92 L 94 L 97 Oximetry 08/09/20 08/09/20 08/09/20 10:48 15:37 15:48 Temperature Pulse Rate 81 89 Respiratory 20 18 Rate Blood Pressure 113/78 117/78 O2 Sat by Pulse 94 L 92 L 92 L Oximetry 08/09/20 20:24 Temperature Pulse Rate 64 Respiratory 18 Rate Blood Pressure 115/80 O2 Sat by Pulse 92 L Oximetry - Reevaluation(s) Reevaluation #1: Medical record is reviewed patient's fever symptoms controlled here in the ER Patient still complains of shortness of breath Patient informed results questions answered Medical Decision Making - Medical Decision Making 60 female to the ER, patient presents for evaluation of weakness and fever. No cancer patient on chemo. Patient will be admitted for symptom management IV antibiotics for pneumonia - Lab Data Result diagrams: 08/08/20 23:26 08/08/20 23:26 Lab Results 08/08/20 08/08/20 08/08/20 Range/Units 23:26 23:26 23:26 WBC 11.5 H (3.8-10.6) k/uL RBC 4.27 (3.80-5.40) m/uL Hgb 11.4 (11.4-16.0) gm/dL Hct 35.4 (34.0-46.0) % MCV 83.1 (80.0-100.0) fL MCH 26.8 (25.0-35.0) pg MCHC 32.3 (31.0-37.0) g/dL RDW 15.9 H (11.5-15.5) % Plt Count 547 H (150-450) k/uL MPV 7.5 Neutrophils % 72 % Lymphocytes % 11 % Monocytes % 12 % Eosinophils % 1 % Basophils % 1 % Neutrophils # 8.3 H (1.3-7.7) k/uL Lymphocytes # 1.3 (1.0-4.8) k/uL Monocytes # 1.4 H (0-1.0) k/uL Eosinophils # 0.1 (0-0.7) k/uL Basophils # 0.1 (0-0.2) k/uL Hypochromasia Slight Sodium 135 L (137-145) mmol/L Potassium 3.7 (3.5-5.1) mmol/L Chloride 103 (98-107) mmol/L Carbon Dioxide 24 (22-30) mmol/L Anion Gap 8 mmol/L BUN 5 L (7-17) mg/dL Creatinine 0.61 (0.52-1.04) mg/dL Est GFR (CKD-EPI)AfAm >90 (>60 ml/min/1.73 sqM) Est GFR (CKD-EPI)NonAf >90 (>60 ml/min/1.73 sqM) Glucose 94 (74-99) mg/dL Plasma Lactic Acid Paresh 1.0 (0.7-2.0) mmol/L Calcium 8.7 (8.4-10.2) mg/dL Magnesium 1.6 (1.6-2.3) mg/dL Total Bilirubin 0.3 (0.2-1.3) mg/dL AST 48 H (14-36) U/L ALT 26 (4-34) U/L Alkaline Phosphatase 154 H (38-126) U/L Lactate Dehydrogenase 1115 H (313-618) U/L C-Reactive Protein 3.0 H (<1.0) mg/dL Total Protein 5.8 L (6.3-8.2) g/dL Albumin 2.8 L (3.5-5.0) g/dL Coronavirus (PCR) (Not Detectd) 08/09/20 Range/Units 01:05 WBC (3.8-10.6) k/uL RBC (3.80-5.40) m/uL Hgb (11.4-16.0) gm/dL Hct (34.0-46.0) % MCV (80.0-100.0) fL MCH (25.0-35.0) pg MCHC (31.0-37.0) g/dL RDW (11.5-15.5) % Plt Count (150-450) k/uL MPV Neutrophils % % Lymphocytes % % Monocytes % % Eosinophils % % Basophils % % Neutrophils # (1.3-7.7) k/uL Lymphocytes # (1.0-4.8) k/uL Monocytes # (0-1.0) k/uL Eosinophils # (0-0.7) k/uL Basophils # (0-0.2) k/uL Hypochromasia Sodium (137-145) mmol/L Potassium (3.5-5.1) mmol/L Chloride (98-107) mmol/L Carbon Dioxide (22-30) mmol/L Anion Gap mmol/L BUN (7-17) mg/dL Creatinine (0.52-1.04) mg/dL Est GFR (CKD-EPI)AfAm (>60 ml/min/1.73 sqM) Est GFR (CKD-EPI)NonAf (>60 ml/min/1.73 sqM) Glucose (74-99) mg/dL Plasma Lactic Acid Paresh (0.7-2.0) mmol/L Calcium (8.4-10.2) mg/dL Magnesium (1.6-2.3) mg/dL Total Bilirubin (0.2-1.3) mg/dL AST (14-36) U/L ALT (4-34) U/L Alkaline Phosphatase (38-126) U/L Lactate Dehydrogenase (313-618) U/L C-Reactive Protein (<1.0) mg/dL Total Protein (6.3-8.2) g/dL Albumin (3.5-5.0) g/dL Coronavirus (PCR) Not Detected (Not Detectd) - EKG Data -: EKG Interpreted by Me (EKG shows sinus tachycardia 107 [place] 142 QRS 78 QTc 488) - Radiology Data Radiology results: report reviewed (Chest x-rays developing pneumonia), image r eviewed Critical Care Time Critical Care Time: Yes Total Critical Care Time: 31 Disposition Clinical Impression: Nausea & vomiting, Community acquired pneumonia, Lung cancer, Acute bronchitis Disposition: ADMITTED IP TO THIS HOSP Condition: Fair Is patient prescribed a controlled substance at d/c from ED?: No
[2020-08-09 00:06] LABS: Basophils # (A) 0.1 k/uL (0-0.2); Basophils % (A) 1 %; Eosinophils # (A) 0.1 k/uL (0-0.7); Eosinophils % (A) 1 %; HCT 35.4 % (34.0-46.0); HGB 11.4 gm/dL (11.4-16.0); Hypochromasia Slight; Lymphocytes # (A) 1.3 k/uL (1.0-4.8); Lymphocytes % (A) 11 %; MCH 26.8 pg (25.0-35.0); MCHC 32.3 g/dL (31.0-37.0); MCV 83.1 fL (80.0-100.0); Mean Platelet Volume 7.5; Monocytes # (A) 1.4 k/uL (0-1.0); Monocytes % (A) 12 %; Neutrophils # (A) 8.3 k/uL (1.3-7.7); Neutrophils % (A) 72 %; Platelet Count 547 k/uL (150-450); RBC 4.27 m/uL (3.80-5.40); RDW 15.9 % (11.5-15.5); WBC 11.5 k/uL (3.8-10.6)
[2020-08-09 00:26] LABS: ALT 26 U/L (4-34); AST 48 U/L (14-36); African American GFR (CKD) >90 (>60 ml/min/1.73 sqM); Albumin 2.8 g/dL (3.5-5.0); Alkaline Phosphatase 154 U/L (38-126); Anion Gap 8 mmol/L; Blood Urea Nitrogen 5 mg/dL (7-17); Calcium 8.7 mg/dL (8.4-10.2); Carbon Dioxide 24 mmol/L (22-30); Chloride 103 mmol/L (98-107); Glucose 94 mg/dL (74-99); LDH 1115 U/L (313-618); Magnesium 1.6 mg/dL (1.6-2.3); Non-African American GFR(CKD) >90 (>60 ml/min/1.73 sqM); Potassium 3.7 mmol/L (3.5-5.1); Sodium 135 mmol/L (137-145); Total Bilirubin 0.3 mg/dL (0.2-1.3); Total Protein 5.8 g/dL (6.3-8.2)
--- NOTE | 2020-08-09 00:32 | XR ---
EXAMINATION TYPE: XR chest 1V portable DATE OF EXAM: 08/09/2020 COMPARISON: : HISTORY: Vomiting. Headache. TECHNIQUE: Single view FINDINGS: Heart is slightly enlarged. There is coarsening of the interstitial markings. There is mild congestion. There are no hilar masses. Mediastinum is normal. There is cervical spine fusion surgery . IMPRESSION: Increased interstitial pulmonary density compared to old exam. This could be mild heart f ailure.
[2020-08-09] MEDS ORDERED: PIPERACILLIN-TAZOBACTAM 3.375 GM in SODIUM CHLORIDE 0.9% 100 ML IVPB STA (01:40)
[2020-08-09] MEDS ORDERED: AZITHROMYCIN 500 MG in SODIUM CHLORIDE 0.9% 250 ML IVPB STA (01:40)
[2020-08-09] MEDS ORDERED: IPRATROPIUM-ALBUTEROL 3 ML NEB INHALATION PRN (01:40)
[2020-08-09] MEDS ORDERED: PNEUMONIA PROTOCOL UTILIZED 1 EACH MISC PO PRN (01:40)
[2020-08-09] MEDS: SODIUM CHLORIDE 0.9% 1,000 ML IV SCH ×2 (02:18→13:11)
[2020-08-09 02:46] LABS: INR 1.1 (<1.2); Prothrombin Time 11.2 sec (9.0-12.0)
[2020-08-09 02:47] LABS: Partial Thromboplastin Time 20.5 sec (22.0-30.0)
[2020-08-09] MEDS: PIPERACILLIN-TAZOBACTAM 3.375 GM in SODIUM CHLORIDE 0.9% 100 ML IVPB SCH ×2 (09:20→18:05)
[2020-08-09] MEDS ORDERED: HYDROcodone/APAP 10-325MG 1 EACH TAB PO ONE (09:30)
[2020-08-09] MEDS: PANTOPRAZOLE 40 MG/10 ML VIAL IVP SCH ×2 (13:11→20:22)
[2020-08-09] MEDS ORDERED: ONDANSETRON 4 MG TAB PO PRN (14:26)
[2020-08-09] MEDS ORDERED: NON FORMULARY DRUG (Naloxone Hcl [Narcan] 4 MG Spray) NASAL PRN (14:26)
[2020-08-09] MEDS ORDERED: NALOXONE 0.4 MG/ML 1 ML VIAL IV PRN (14:35)
[2020-08-09] MEDS: HYDROcodone/APAP 10-325MG 1 EACH TAB PO PRN ×2 (14:43→20:23)
[2020-08-09] MEDS: ALPRAZolam 0.5 MG TAB PO SCH (14:43)
[2020-08-09] MEDS: HEPARIN SODIUM,PORCINE/PF 5,000 UNIT/0.5 ML SYRINGE SQ SCH ×2 (14:43→20:22)
[2020-08-09] MEDS ORDERED: ALBUTEROL HFA INHALER INHALATION PRN (15:12)
[2020-08-09] MEDS: ALBUTEROL HFA INHALER INHALATION SCH ×2 (15:42→19:49)
[2020-08-09] MEDS ORDERED: IPRATROPIUM-ALBUTEROL 3 ML NEB INHALATION SCH (16:00)
--- NOTE | 2020-08-09 17:15 | HP ---
HISTORY AND PHYSICAL I am covering for Dr. Joshua. DATE OF SERVICE: 08/09/2020 CHIEF COMPLAINT: Fever. HISTORY OF PRESENT ILLNESS: This 60-year-old woman with a past medical history of TIA, history of pleurisy, history of migraines, history of non-alcoholic cirrhosis of the liver, back surgery, breast surgery, hysterectomy, history of splenectomy, history of benign depression being followed by Dr. Joshua in the outpatient setting, was complaining of fever, nausea, vomiting. The patient was evaluated in the ER. Showed elevated white count. LFTs also mildly elevated. A chest x-ray was done which was reviewed personally by me and showed evidence of increased interstitial pulmonary densities and pneumonia. Patient admitted for further evaluation and treatment. There is no history of fever, rigors. No headache, loss of consciousness, seizures at this time. PAST MEDICAL HISTORY: History of COPD, history of splenectomy, history of obesity, history of TIAs, back surgery and DJD. MEDICATIONS: Medications prior to admission include: Zofran, Wellbutrin, Protonix, omeprazole, Zyprexa, Narcan, DuoNeb, folic acid, Diflucan, Pepcid, Xanax. ALLERGIES: GENTAMICIN. FAMILY HISTORY: History of cancer in the family. SOCIAL HISTORY: History of smoking, continued ongoing. Occasional alcohol intake. REVIEW OF SYSTEMS: ENT: No diminished vision. No diminished hearing. CARDIOVASCULAR: No angina or palpitations. RESPIRATION as mentioned earlier. GI no nausea or vomiting. no dysuria. NERVOUS SYSTEM: No numbness, weakness. ALLERGY: No asthma or hayfever. MUSCULOSKELETAL: As mentioned earlier. HEMATOLOGY: No history of anemia. ENDOCRINE: No history of diabetes or hypothyroidism. CONSTITUTIONAL: As mentioned earlier. DERMATOLOGY: Negative. RHEUMATOLOGY: Negative. PSYCHIATRIC: As mentioned earlier. PHYSICAL EXAMINATION: Patient is alert, oriented x3. Pulse is 81. Blood pressure 130/77, respirations 18, temperature 97.5, T-max 99.9, pulse ox 97% on room air. HEENT: Conjunctivae normal. NECK: No JVD. CARDIOVASCULAR: S1, S2 muffled. No S3, No S4. RESPIRATION: Breath sounds diminished in the bases. Bilateral scattered rhonchi and crackles. Expiratory wheezing also present. ABDOMEN: Soft, nontender. No mass palpable. LEGS: No edema. No swelling. NERVOUS SYSTEM: Higher functions as mentioned earlier. Moves all 4 limbs. No focal deficits. LYMPHATICS: No lymph nodes palpable in the neck, axilla or groin. SKIN: No ulcer, rash or bleeding. JOINTS: No active deforming arthropathy. LAB STUDIES: WBC 11.2, hemoglobin 11.4, platelets 547, monocytes 1.4. Sodium is 135. Alkaline phosphatase is 145. LDH is 1115. CRP is 3. Total protein is 5.8, albumin is 2.8. ASSESSMENT: 1. Chronic obstructive pulmonary disease acute exacerbation with acute bilateral pneumonia possibly community-acquired pneumonia. 2. Increased WBC. 3. Increased platelets. 4. Hyponatremia. 5. Elevated CRP. 6. Covid 19 is negative. 7. History of multiple transient ischemic attacks. 8. History of pleurisy. 9. Migraine. 10.History of back surgery. 11.History of degenerative joint disease. 12.History of depression. 13.Remote history of nicotine dependence. 14.Obesity, body mass of 37. 15.FULL CODE. RECOMMENDATIONS AND DISCUSSION: This 60-year-old woman who presented with multiple complex medical issues, we will monitor the patient closely, continue the current medications, management and symptomatic treatment. We will initiate bronchodilators and we will also initiate empiric antibiotics. Pulmonary consultation. Guarded prognosis because of multiple complex medical issues. Further recommendations to follow. A copy of this dictation forwarded to Dr. Joshua who is the primary physician. MMODL / ZAINN: [id number] /
[2020-08-09] MEDS: SYMBICORT 160-4.5 MCG INHALER INHALATION SCH (19:50)
[2020-08-09] MEDS: buPROPion XL 150 MG TAB.ER.24H PO SCH (20:22)
[2020-08-10] MEDS: HYDROcodone/APAP 10-325MG 1 EACH TAB PO PRN ×3 (01:47→17:48)
[2020-08-10] MEDS: PIPERACILLIN-TAZOBACTAM 3.375 GM in SODIUM CHLORIDE 0.9% 100 ML IVPB SCH ×3 (01:48→17:45)
[2020-08-10] MEDS ORDERED: AZITHROMYCIN 500 MG in SODIUM CHLORIDE 0.9% 250 ML IVPB SCH (03:00)
--- NOTE | 2020-08-10 07:01 | XR ---
EXAMINATION TYPE: XR chest 1V DATE OF EXAM: 08/10/2020 CLINICAL HISTORY: Difficulty breathing and pneumonia progress study. TECHNIQUE: Single AP portable upright view of the chest is obtained. COMPARISON: Chest x-ray from one day earlier and older studies. FINDINGS: Stable left-sided PICC line. Anterior fusion plate cervical spine redemonstrated. Stable m ild cardiomegaly with atherosclerotic thoracic aorta. Chronic parenchymal changes redemonstrated with out suspicious new focal airspace opacity, pleural effusion, or pneumothorax seen. Mild central vascu lar congestion may be present and stable. IMPRESSION: Mild cardiomegaly and mild central vascular congestion. No new focal infiltrate.
[2020-08-10] MEDS ORDERED: PANTOPRAZOLE 40 MG TABLET PO SCH (07:30)
[2020-08-10] MEDS: SODIUM CHLORIDE 0.9% 1,000 ML IV SCH ×3 (07:52→17:19)
[2020-08-10] MEDS: ALBUTEROL HFA INHALER INHALATION SCH ×4 (08:15→20:55)
[2020-08-10] MEDS: SYMBICORT 160-4.5 MCG INHALER INHALATION SCH ×2 (08:16→20:55)
[2020-08-10] MEDS: PANTOPRAZOLE 40 MG/10 ML VIAL IVP SCH ×2 (08:32→21:32)
[2020-08-10] MEDS: OLANZapine 5 MG TAB PO SCH (08:35)
[2020-08-10] MEDS: ALPRAZolam 0.5 MG TAB PO SCH (08:35)
[2020-08-10] MEDS: FLUCONAZOLE 100 MG TAB PO SCH (08:35)
[2020-08-10] MEDS: HEPARIN SODIUM,PORCINE/PF 5,000 UNIT/0.5 ML SYRINGE SQ SCH ×2 (08:36→21:34)
[2020-08-10] MEDS: buPROPion XL 150 MG TAB.ER.24H PO SCH ×2 (08:37→21:34)
[2020-08-10] MEDS ORDERED: FAMOTIDINE 20 MG TAB PO SCH (09:00)
[2020-08-10] MEDS: FOLIC ACID 1 MG TAB PO SCH (10:26)
--- NOTE | 2020-08-10 10:33 | P.CNPUL ---
History of Present Illness Consult date: 08/10/20 Reason for consult: dyspnea, cough, chest pain, hypoxemia Chief complaint: Shortness of breath burning sensation in the chest History of present illness: This is a pleasant 60-year-old female with end-stage COPD due to smoking and nicotine use, patient has been diagnosed as large mediastinal mass currently undergoing chemo and radiation for lung cancer, for last several days she is not feeling well increasing shortness of breath developed burning sensation sensation in the chest came into the hospital for further evaluation, on arrival she was noted to have a white cell count of 11,500, normal renal functions, el evated LDH of 4000, current one is PCR negative, blood cultures positive for Streptococcus species, currently patient is on Zithromax along with Zosyn Review of Systems All systems: negative Past Medical History Past Medical History: Cancer Additional Past Medical History / Comment(s): back pain; "several tia's-Last TIA 1 1/2 YEARS AGO, pluerisy, migraines, past falls, "was [facility] at [facility] she had non-alcoholic cirrhosis". lung cancer History of Any Multi-Drug Resistant Organisms: None Reported Past Surgical History: Back Surgery, Breast Surgery, Hysterectomy Additional Past Surgical History / Comment(s): back sx, neck sx. spleenectomy- d/t injury; benign R Breast lumpectomy, sinus sx Past Anesthesia/Blood Transfusion Reactions: No Reported Reaction Past Psychological History: Depression Smoking Status: Former smoker Past Alcohol Use History: None Reported Past Drug Use History: None Reported - Past Family History Mother Family Medical History: Cancer Additional Family Medical History / Comment(s): Father History Unknown: Yes Family Medical History: No Reported History Medications and Allergies Home Medications Medication Instructions Recorded Confirmed Type HYDROcodone/APAP 10-325MG [[place] 1 tab PO QID PRN 04/11/19 08/09/20 History 10-325] ALPRAZolam [Xanax] 0.5 mg PO HS 08/09/20 08/10/20 History Famotidine [Pepcid] 20 mg PO DAILY 08/09/20 08/09/20 History Fluconazole [Diflucan] 400 mg PO DAILY 08/09/20 08/09/20 History Folic Acid 1 mg PO DAILY 08/09/20 08/09/20 History Ipratropium-Albuterol Nebulize 3 ml INHALATION RT-TID 08/09/20 08/09/20 History [Duoneb 0.5 mg-3 mg/3 ml Soln] Naloxone HCl [Narcan] 4 mg NASAL ONCE PRN 08/09/20 08/09/20 History OLANZapine [ZyPREXA] 5 mg PO HS 08/09/20 08/10/20 History Omeprazole 40 mg PO AC-BRKFST 08/09/20 08/10/20 History Pantoprazole Sodium [Protonix] 40 mg PO HS 08/09/20 08/09/20 History buPROPion HCL [Wellbutrin XL] 150 mg PO BID 08/09/20 08/09/20 History ondansetron HCL [Zofran] 8 mg PO Q6H PRN 08/09/20 08/09/20 History Allergies Allergy/AdvReac Type Severity Reaction Status Date / Time gentamicin Allergy Anaphylaxis Verified 08/09/20 08:31 Physical Exam Vitals: Vital Signs Temp Pulse Resp BP Pulse Ox 08/10/20 06:27 80 18 110/74 93 L 08/10/20 01:00 98.7 F 79 18 100/63 92 L 08/09/20 20:24 64 18 115/80 92 L 08/09/20 15:48 92 L 08/09/20 15:37 89 18 117/78 92 L 08/09/20 10:48 81 20 113/78 94 L - Constitutional General appearance: average body habitus, cooperative, disheveled - EENT Eyes: PERRLA Ears: bilateral: normal - Neck Neck: normal ROM Carotids: bilateral: upstroke normal - Respiratory Respiratory: bilateral: diminished - Cardiovascular Rhythm: regular Heart sounds: normal: S1, S2 - Gastrointestinal General gastrointestinal: distended - Neurologic Neurologic: CNII-XII intact - Musculoskeletal Musculoskeletal: gait normal, generalized weakness, strength equal bilaterally - Psychiatric Psychiatric: A&O x's 3, appropriate affect, intact judgment & insight Results - Laboratory Findings CBC and BMP: 08/08/20 23:26 08/08/20 23:26 PT/INR, D-dimer PT 11.2 sec (9.0-12.0) 08/09/20 01:55 INR 1.1 (<1.2) 08/09/20 01:55 Abnormal lab findings: Abnormal Labs 0608/08/20 08/09/20 23:26 23:26 01:55 WBC 11.5 H RDW 15.9 H Plt Count 547 H Neutrophils # 8.3 H Monocytes # 1.4 H APTT 20.5 L Sodium 135 L BUN 5 L AST 48 H Alkaline Phosphatase 154 H Lactate Dehydrogenase 1115 H C-Reactive Protein 3.0 H Total Protein 5.8 L Albumin 2.8 L - Diagnostic Findings Chest x-ray: report reviewed, image reviewed Assessment and Plan Assessment: Retrosternal burning sensation likely related to joselito esophagitis, continue Diflucan Non-small cell is stage IIIB cancer on chemo and radiation therapy Bacteremia due to strep final ID pending on Zosyn End-stage COPD Chronic hypoxic respiratory failure Plan: Continue to gently hydrate Continue Diflucan If symptoms not improve will consider GI consult and upper endoscopy for biopsy and sampling Continue broad-spectrum antibiotics Bronchodilators DVT prophylaxis Time with Patient: Greater than 30
[2020-08-10 10:42] LABS: African American GFR (CKD) >90 (>60 ml/min/1.73 sqM); Anion Gap 10 mmol/L; Blood Urea Nitrogen 8 mg/dL (7-17); Calcium 8.2 mg/dL (8.4-10.2); Carbon Dioxide 18 mmol/L (22-30); Chloride 110 mmol/L (98-107); Glucose 83 mg/dL (74-99); Non-African American GFR(CKD) >90 (>60 ml/min/1.73 sqM); Sodium 138 mmol/L (137-145)
[2020-08-10 10:45] LABS: Potassium 4.2 mmol/L (3.5-5.1)
[2020-08-10] MEDS ORDERED: MAG HYDROX/AL HYDROX/SIMETH 30 ML, LIDOCAINE VISCOUS 30 ML, diphenhydrAMINE ELIXIR 75 M... PO SCH ×12 (10:45→19:00)
[2020-08-10 10:51] LABS: Anisocytosis Slight; HGB 10.6 gm/dL (11.4-16.0); Hypochromasia Moderate; MCH 26.3 pg (25.0-35.0); MCHC 31.1 g/dL (31.0-37.0); MCV 84.7 fL (80.0-100.0); Mean Platelet Volume 8.2; Platelet Count 576 k/uL (150-450); RBC 4.02 m/uL (3.80-5.40); RDW 16.3 % (11.5-15.5); WBC 8.9 k/uL (3.8-10.6)
[2020-08-10] MEDS ORDERED: dexAMETHasone ORAL SOLUTION 4 MG/ML VIAL PO SCH (12:00)
[2020-08-10 14:19] LABS: Eosinophils # (M) 0.45 k/uL (0-0.7); Monocytes # (M) 1.51 k/uL (0-1.0); Neutrophils # (M) 4.54 k/uL (1.3-7.7); Neutrophils % (M) 51 %; Nucleated Red Blood Cells 0 /100 WBC (0-0); Total Cells Counted 100
[2020-08-10 14:20] LABS: Crenated RBC Present; Poikilocytosis (M) Present
[2020-08-10] MEDS ORDERED: diazePAM 5 MG TAB PO STA (14:56)
--- NOTE | 2020-08-10 18:11 | MR ---
EXAMINATION TYPE: MR brain wo/w con DATE OF EXAM: 08/10/2020 COMPARISON: 12/06/2017 HISTORY: N & V, hx lung cancer. CONTRAST: Standard multiplanar, multisequence MRI departmental protocol utilizing 9 mL intravenous Gadavist kei olinium contrast. Diffusion images show no evidence of an acute infarct. There is no mass effect nor midline shift. The re are numerous high signal foci in the christianson-white matter junction of both cerebral hemispheres. Thes e measure up to 7 mm. Total number is approximately 25 and these are mostly in the frontal and pariet al lobes. There is sparing of the cerebellum in the occipital lobes. There is no pathologic enhanceme nt. There is normal enhancement of the venous sinuses. The brainstem is intact. IMPRESSION: White matter high signal foci as above are increased slightly compared to old exam. No enhancement. M ore likely relates to chronic small vessel ischemia. Demyelinating disease also possible. No evidence of cortical infarct. No enhancement seen to suggest metastatic disease.
--- NOTE | 2020-08-10 19:48 | P.CONS ---
History of Present Illness - Reason for Consult Consult date: 08/10/20 known Requesting physician: Lawrence Fang - Chief Complaint fever - History of Present Illness Ms. Saxena is a pleasant female admitted to [facility] 05/24 because of cough and shortness of breath, progressively worse over the previous 2 weeks. SOB x 1 year which she had attributed to her history of smoking and weight gain. CT chest with contrast on 05/26/20, compared to a previous scan in 09/22. This showed a mass in the right azygoesophageal recess measuring 3.3 x 5.3 cm that previously measured 2.8 x 4.1 cm. This appeared to be contiguous wi th subcarinal fullness. Bronchoscopy with biopsy, that was nondiagnostic. PET scan on 06/09/20 showed uptake with SUV 6.59 in the azygoesophageal recess mass. There was also uptake in an adjacent subcarinal node with SUV 13, that was discrete from the above mass. No evidence of any distant disease. CT-guided needle biopsy of the right lung mass on 06/17/20. Pathology was positive for non-small cell carcinoma consistent with adenocarcinoma. She had a CTA on 06/17/20 that was negative for PE. MRI of the brain on 06/22/20 showed age- related atrophic and chronic small vessel ischemic changes with no evidence of metastasis. She was seen by Radiation Oncology, and referred to Dr. Masters. Smoker since her early teens, quit in mid 06/24. She was inpt at [facility] 07/08-07/12 and 07/14-07/21 for SOB, intractable cough. She had abx, and steroids. She was given 1st cycle of carboplatin and alimta while inpt on 07/20. She has been doing ok with treatment overall, her cough is significantly better and breathing is better. She is starting to have heartburn, indigestion, mid sternal and epigastric areas. Her cough is productive for a small amount of whitish sputum. She has had infection work up, BC +, ID consulted. She is uncomfortable when seen, nausea and vomiting are at random. No palpitations, diarrhea, dysuria, hematuria, bleeding or swelling. Review of Systems 10 point ROS is neg except as stated in HPI Past Medical History Past Medical History: Cancer Additional Past Medical History / Comment(s): back pain; "several tia's-Last TIA 1 1/2 YEARS AGO, pluerisy, migraines, past falls, "was told at [facility] she had non-alcoholic cirrhosis". lung cancer History of Any Multi-Drug Resistant Organisms: None Reported Past Surgical History: Back Surgery, Breast Surgery, Hysterectomy Additional Past Surgical History / Comment(s): back sx, neck sx. spleenectomy- d/t injury; benign R Breast lumpectomy, sinus sx Past Anesthesia/Blood Transfusion Reactions: No Reported Reaction Past Psychological History: Depression Smoking Status: Former smoker Past Alcohol Use History: None Reported Past Drug Use History: None Reported - Past Family History Mother Family Medical History: Cancer Additional Family Medical History / Comment(s): Father History Unknown: Yes Family Medical History: No Reported History Medications and Allergies Home Medications Medication Instructions Recorded Confirmed Type HYDROcodone/APAP 10-325MG [[place] 1 tab PO QID PRN 04/11/19 08/09/20 History 10-325] ALPRAZolam [Xanax] 0.5 mg PO HS 08/09/20 08/10/20 History Famotidine [Pepcid] 20 mg PO DAILY 08/09/20 08/09/20 History Fluconazole [Diflucan] 400 mg PO DAILY 08/09/20 08/09/20 History Folic Acid 1 mg PO DAILY 08/09/20 08/09/20 History Ipratropium-Albuterol Nebulize 3 ml INHALATION RT-TID 08/09/20 08/09/20 History [Duoneb 0.5 mg-3 mg/3 ml Soln] Naloxone HCl [Narcan] 4 mg NASAL ONCE PRN 08/09/20 08/09/20 History OLANZapine [ZyPREXA] 5 mg PO HS 08/09/20 08/10/20 History Omeprazole 40 mg PO AC-BRKFST 08/09/20 08/10/20 History Pantoprazole Sodium [Protonix] 40 mg PO HS 08/09/20 08/09/20 History buPROPion HCL [Wellbutrin XL] 150 mg PO BID 08/09/20 08/09/20 History ondansetron HCL [Zofran] 8 mg PO Q6H PRN 08/09/20 08/09/20 History Allergies Allergy/AdvReac Type Severity Reaction Status Date / Time gentamicin Allergy Anaphylaxis Verified 08/09/20 08:31 Physical Exam Vitals: Vital Signs Temp Pulse Resp BP Pulse Ox 08/10/20 06:27 80 18 110/74 93 L 08/10/20 01:00 98.7 F 79 18 100/63 92 L 08/09/20 20:24 64 18 115/80 92 L 08/09/20 15:48 92 L 08/09/20 15:37 89 18 117/78 92 L 08/09/20 10:48 81 20 113/78 94 L - Constitutional General appearance: cooperative, mild distress, obese - EENT Eyes: anicteric sclerae, EOMI ENT: hearing grossly normal, thrush - Neck Neck: no lymphadenopathy - Respiratory Respiratory: bilateral: diminished - Cardiovascular tachycardia Heart sounds: normal: S1, S2 Abnormal Heart Sounds: no systolic murmur, no diastolic murmur, no rub, no S3 Gallop, no S4 Gallop, no click, no other leg Peripheral Edema: bilateral: None - Gastrointestinal General gastrointestinal: no absent bowel sounds, no decreased bowel sounds, no distended, no hepatomegaly, no hyperactive bowel sounds, normal bowel sounds, no organomegaly, no rigid, no scaphoid, soft, no splenomegaly, no tenderness, no umbilical hernia, no ventral hernia - Integumentary Integumentary: pale - Neurologic Neurologic: CNII-XII intact - Musculoskeletal Musculoskeletal: generalized weakness - Psychiatric Psychiatric: A&O x's 3, appropriate affect, intact judgment & insight Results CBC & Chem 7: 08/10/20 09:15 08/10/20 09:15 Labs: Microbiology - Last 24 Hours (Table) 08/08/20 23:26 Blood Culture Gram Stain - Preliminary Blood Blood Culture - Preliminary Streptococcus species 08/08/20 23:26 Blood Culture - Final Blood Chest x-ray: report reviewed Assessment and Plan (1) Nausea & vomiting Narrative/Plan: MRI brain ordered evaluate for possible brain mets as a cause for pt symptoms Antiemetics ordered Current Visit: Yes Status: Acute Priority: High Code(s): R11.2 - NAUSEA WITH VOMITING, UNSPECIFIED SNOMED Code(s): 39312072 (2) Radiation esophagitis Narrative/Plan: Kools with dex ordered Current Visit: Yes Status: Acute Priority: High Code(s): K20.80 - OTHER ESOPHAGITIS WITHOUT BLEEDING; T66.XXXA - RADIATION SICKNESS, UNSPECIFIED, INITIAL ENCOUNTER SNOMED Code(s): 609528732 (3) Primary lung adenocarcinoma Narrative/Plan: Pt is s/p 1st carbo/alimta with concurrent XRT. Due for cycle 2 today. Hold chemo until current acute condition controlled. Current Visit: Yes Status: Acute Priority: High Code(s): C34.90 - MALIGNANT NEOPLASM OF UNSP PART OF UNSP BRONCHUS OR LUNG SNOMED Code(s): 982222939 Plan: Doctor attests: I performed a history and physical examination of this patient, developed impression and plan of care, discussed with dictator. I agree with dictators note, documented as a scribe.
[2020-08-10] MEDS: MAG HYDROX/AL HYDROX/SIMETH 30 ML, LIDOCAINE VISCOUS 30 ML, diphenhydrAMINE ELIXIR 75 M... PO SCH ×4 (21:31)
[2020-08-10] MEDS: dexAMETHasone ORAL SOLUTION 4 MG/ML VIAL PO SCH (21:31)
[2020-08-10] MEDS: HYDROmorphone 0.5 MG/0.5 ML SYRINGE IVP PRN (21:33)
[2020-08-11] MEDS: HYDROmorphone 0.5 MG/0.5 ML SYRINGE IVP PRN ×3 (04:04→17:35)
[2020-08-11] MEDS: PIPERACILLIN-TAZOBACTAM 3.375 GM in SODIUM CHLORIDE 0.9% 100 ML IVPB SCH ×3 (04:05→17:34)
[2020-08-11] MEDS: dexAMETHasone ORAL SOLUTION 4 MG/ML VIAL PO SCH ×4 (04:06→21:27)
[2020-08-11] MEDS: MAG HYDROX/AL HYDROX/SIMETH 30 ML, LIDOCAINE VISCOUS 30 ML, diphenhydrAMINE ELIXIR 75 M... PO SCH ×16 (04:06→21:28)
[2020-08-11] MEDS: SODIUM CHLORIDE 0.9% 1,000 ML IV SCH ×2 (04:14→16:36)
--- NOTE | 2020-08-11 06:19 | PN ---
PROGRESS NOTE This is a 60-year-old white female who comes to the hospital for pneumonia, COPD exacerbation, tracheobronchitis, extreme shortness of breath, came in the hospital. MRI of the brain is showing for possible metastasis into the head. Cardiovascular S1-S2. Lungs clear. GI soft. Hematology negative Homans. ASSESSMENT: 1. Lung cancer status post chemo and radiation. 2. Extreme weakness. 3. Chronic obstructive pulmonary disease exacerbation. 4. Tracheobronchitis. 5. Esophageal candidiasis. Remains on heparin protocol subcu. Home medicines have been given. Unasyn is being given for possible pneumonia. Diflucan for esophagitis. Prognosis is extremely guarded. Wait for Dr. Eli's recommendations. MMODL / IJN: [id number] /
--- NOTE | 2020-08-11 06:55 | CONS ---
CONSULTATION DATE OF SERVICE: 08/10/2020 REASON FOR CONSULTATION: Fever. HISTORY OF PRESENT ILLNESS: The patient is a 60-year-old female with recent diagnosis of non-small cell carcinoma/adenocarcinoma. Patient did have recent admission at the [facility]. The patient did have a fever and evidence of candidemia and bacteremia secondary Staph epi which was thought to be related to her PICC line which was discontinued. Repeat blood culture negative. The patient did get a PICC line in her left arm and she was advised a total of 2 week course of oral Diflucan and IV daptomycin which the patient was receiving at home. The patient presented to [facility] ER last night for evaluation of fever which apparently started the day before she presented to the hospital. The patient denies having any headache or URI symptoms. The patient denies having any chest pain. She did have shortness of breath and cough, which seem to be baseline or slight worsening with occasional sputum. No hemoptysis. No nausea, no vomiting. No abdominal pain or any diarrhea. On presentation hospital the patient did have a low-grade fever of 99.9 degrees Fahrenheit. The patient is currently saturating 92% to 94% on room air. The patient did have a white count of 11.5 with left shift. Creatinine was normal. CRP was mildly elevated. David PCR was negative. The patient did have blood culture which came back positive with alpha hemolytic Streptococcus. The patient did have a chest x-ray that shows increasing interstitial pulmonary density exam could be mild heart failure. The patient did have positive blood culture with alpha hemolytic Streptococcus. He has been treated with Zosyn. Infectious Disease was consulted for further management of antibiotic therapy. REVIEW OF SYSTEMS: Positive points have been mentioned in HPI. Rest of systems are negative. PAST MEDICAL HISTORY: Recent diagnosis of non-small cell adenocarcinoma of the lung. The patient has a history of migraine headache, nonalcoholic cirrhosis of the liver, chronic back pain. PAST SURGICAL HISTORY: Back surgery, lumpectomy, hysterectomy, splenectomy. SOCIAL HISTORY: Remote history of smoking. Denies drinking or drug use. FAMILY HISTORY: No pertinent findings noticed. ALLERGIES: GENTAMICIN. MEDICATIONS: The patient is currently on [place], Xanax, Symbicort, Wellbutrin, Decadron, Diflucan, Dilaudid, Narcan, Zofran, Protonix, Zosyn. PHYSICAL EXAMINATION: VITAL SIGNS: Her blood pressure is 124/80 with a pulse of 86, temperature of 98.9, she is 91% on room air. GENERAL DESCRIPTION: The patient is a middle-aged female lying in bed in no distress. No tachypnea or accessory muscles of respiration use. HEENT: Examination shows pallor, no scleral icterus. Oral mucous membrane is dry. NECK: Trachea central, no thyromegaly. LUNGS: Unlabored breathing, decreased intensity of breath sounds. No wheeze. HEART: S1-S2, regular rate and rhythm. ABDOMEN: Soft, no tenderness. No guarding or rigidity. EXTREMITIES: No edema of the feet. SKIN: No rash or mass palpable. NEUROLOGICAL: Patient is awake, alert, oriented times three. Mood and affect normal. LABS: Hemoglobin is 10.8, white count of 11.5 with left shift. BUN of 8, creatinine 0.56. Blood culture with alpha hemolytic Streptococcus. DIAGNOSTIC IMPRESSION AND PLAN: Patient admitted to the hospital with fever in this patient who did have a history of adenocarcinoma of the lung for which the patient has been on chemo in this patient with recent admission to the [facility] with candidemia, as well as bacteremia due to Staph epi thought related to the PICC line which was discontinued. Now presented to this facility with new fever and did have evidence of bacteremia with alpha hemolytic Streptococcus with concern for possible related to pneumonia versus the PICC line. PLAN: 1. Will obtain blood cultures from the PICC line and peripherally. 2. Check a CT of the chest. 3. Continue with Zosyn 3.375 g q.8 hours and Diflucan. 4. We will follow her clinical condition and investigations to further adjust medication if needed. Thank you for this consultation. Will follow this patient along with you. MMODL / IJN: [id number] /
[2020-08-11] MEDS: FLUCONAZOLE 100 MG TAB PO SCH (08:03)
[2020-08-11] MEDS: ALPRAZolam 0.5 MG TAB PO SCH (08:03)
[2020-08-11] MEDS: PANTOPRAZOLE 40 MG/10 ML VIAL IVP SCH ×2 (08:03→21:27)
[2020-08-11] MEDS: FOLIC ACID 1 MG TAB PO SCH (08:04)
[2020-08-11] MEDS: buPROPion XL 150 MG TAB.ER.24H PO SCH ×2 (08:04→21:28)
[2020-08-11] MEDS: OLANZapine 5 MG TAB PO SCH (08:05)
[2020-08-11] MEDS: HEPARIN SODIUM,PORCINE/PF 5,000 UNIT/0.5 ML SYRINGE SQ SCH ×2 (08:05→21:27)
[2020-08-11] MEDS: ALBUTEROL HFA INHALER INHALATION SCH ×4 (09:11→21:17)
[2020-08-11] MEDS: SYMBICORT 160-4.5 MCG INHALER INHALATION SCH ×2 (09:11→21:17)
--- NOTE | 2020-08-11 10:42 | P.PN ---
Subjective Progress Note Date: 08/11/20 Principal diagnosis: Retrosternal burning sensation likely related to joselito esophagitis, continue Diflucan Non-small cell is stage IIIB cancer on chemo and radiation therapy Bacteremia due to strep final ID pending on Zosyn End-stage COPD Chronic hypoxic respiratory failure 08/11/2020, patient seen eval examined during the rounds labs reviewed medications reviewed care plan discussed, awake and alert sitting upright on the bed breathing slightly better denies any chest pain, nausea and vomiting improved as well able to swallow well, This is a pleasant 60-year-old female with end-stage COPD due to smoking and nicotine use, patient has been diagnosed as large mediastinal mass currently undergoing chemo and radiation for lung cancer, for last several days she is not feeling well increasing shortness of breath developed burning sensation sensation in the chest came into the hospital for further evaluation, on arrival she was noted to have a white cell count of 11,500, normal renal functions, elevated LDH of 4000, current one is PCR negative, blood cultures positive for Streptococcus species, currently patient is on Zithromax along with Zosyn Objective - Vital Signs Vital signs: Vital Signs Temp 97.9 F 08/11/20 08:00 Pulse 70 08/11/20 08:00 Resp 16 08/11/20 08:00 BP 123/73 08/11/20 08:00 Pulse Ox 91 L 08/11/20 08:00 Intake & Output 08/10/20 08/11/20 08/11/20 18:59 06:59 18:59 Weight 88.904 kg Other: Voiding Method Toilet Toilet # Voids 1 1 # Bowel Movements 0 - Exam - Constitutional General appearance: average body habitus, cooperative, disheveled - EENT Eyes: PERRLA Ears: bilateral: normal - Neck Neck: normal ROM Carotids: bilateral: upstroke normal - Respiratory Respiratory: bilateral: diminished - Cardiovascular Rhythm: regular Heart sounds: normal: S1, S2 - Gastrointestinal General gastrointestinal: distended - Neurologic Neurologic: CNII-XII intact - Musculoskeletal Musculoskeletal: gait normal, generalized weakness, strength equal bilaterally - Psychiatric Psychiatric: A&O x's 3, appropriate affect, intact judgment & insight - Labs CBC & Chem 7: 08/10/20 09:15 08/10/20 09:15 Labs: Abnormal Lab Results - Last 24 Hours (Table) 08/10/20 08/10/20 Range/Units 09:15 09:15 Hgb 10.6 L (11.4-16.0) gm/dL RDW 16.3 H (11.5-15.5) % Plt Count 576 H (150-450) k/uL Monocytes # (Manual) 1.51 H (0-1.0) k/uL Chloride 110 H (98-107) mmol/L Carbon Dioxide 18 L (22-30) mmol/L Calcium 8.2 L (8.4-10.2) mg/dL Microbiology - Last 24 Hours (Table) 08/08/20 23:26 Blood Culture Gram Stain - Preliminary Blood Blood Culture - Preliminary Alpha Hemolytic Streptococcus Assessment and Plan Assessment: Retrosternal burning sensation likely related to joselito esophagitis, continue Diflucan Non-small cell is stage IIIB cancer on chemo and radiation therapy Bacteremia due to strep final ID pending on Zosyn End-stage COPD Chronic hypoxic respiratory failure Plan: Continue to gently hydrate Continue Diflucan If symptoms not improve will consider GI consult and upper endoscopy for biopsy and sampling Continue broad-spectrum antibiotics Bronchodilators DVT prophylaxis Time with Patient: Greater than 30
--- NOTE | 2020-08-11 12:16 | CT ---
EXAMINATION TYPE: CT chest wo con DATE OF EXAM: 08/11/2020 COMPARISON: Radiograph 08/10/2020 HISTORY: 60-year-old female pneumonia TECHNIQUE: Contiguous axial scanning of the chest without IV contrast. Coronal and sagittal reconstru ctions performed. CT DLP: 396 mGycm Automated exposure control for dose reduction was used. FINDINGS: Heart is borderline in size without pericardial effusion. Three-vessel coronary artery calcifications are present in remarkable for coronary artery disease. Mildly ectatic ascending aorta 3.6 cm. Mild atherosclerotic arch calcifications. Conventional arch ve ssel branching anatomy. Mildly enlarged caliber to the main right and left pulmonary arteries measuring up to 3.0 cm suggesti ng underlying pulmonary artery hypertension. There is soft tissue in the subcarinal region measuring up to 1.7 cm thick. Contiguous posterior righ t infrahilar soft tissue extending along the subpleural aspect of the medial right lower lobe measuri ng 5.1 x 2.0 cm. Trace bilateral pleural effusions. Some patchy opacity inferior lingula. Probably dependent atelectasis and suggestion of some scattered mosaic attenuation, likely secondary to small airways disease. Visualized upper abdomen shows cholecystectomy clips. Bones: ACF hardware. Left PICC tip at the mid to lower SVC. IMPRESSION: 1. SOFT TISSUE IN THE SUBCARINAL REGION MEASURING UP TO 1.7 CM THICK COULD BE REACTIVE LYMPHADENOPATH Y. CONTIGUOUS SOFT TISSUE VERSUS ATELECTASIS/CONSOLIDATION IN THE SUBPLEURAL ASPECT OF THE MEDIAL RIG HT LOWER LOBE MEASURES 5.1 X 2.0 CM. WHILE PNEUMONIA IS POSSIBLE, FOLLOW-UP RECOMMENDED AFTER ANY POT ENTIAL TREATMENT TO EXCLUDE A NEOPLASTIC ETIOLOGY. 2. SOME FOCAL PATCHY INFILTRATE IN THE INFERIOR LINGULA COULD REPRESENT A SECOND SMALL FOCUS OF PNEUM ONIA VERSUS ATELECTASIS. 3. TRACE BILATERAL PLEURAL EFFUSIONS. 4. PULMONARY ARTERIAL HYPERTENSION. CAD. MOSAIC ATTENUATION SUGGESTING AIR TRAPPING, PROBABLY DUE TO SMALL AIRWAYS DISEASE.
[2020-08-11 14:13] VITALS: BMI 37.0
--- NOTE | 2020-08-11 18:34 | P.PN ---
Subjective Progress Note Date: 08/11/20 Principal diagnosis: Intractable N,V, fever Pt doing much better today, moderate fatigue and weakness but not worse, cough is definitely better Objective - Vital Signs Vital signs: Vital Signs Temp 98.1 F 08/11/20 15:41 Pulse 80 08/11/20 15:41 Resp 18 08/11/20 15:41 BP 120/76 08/11/20 15:41 Pulse Ox 92 L 08/11/20 15:41 Intake & Output 08/10/20 08/11/20 08/11/20 18:59 06:59 18:59 Weight 88.904 kg 88.904 kg Other: Voiding Method Toilet Toilet Toilet # Voids 1 1 3 # Bowel Movements 0 - Constitutional General appearance: Present: cooperative, no acute distress, obese - EENT Eyes: Present: anicteric sclerae, EOMI ENT: Present: hearing grossly normal - Respiratory Respiratory: bilateral: CTA - Cardiovascular Rhythm: regular Heart sounds: normal: S1, S2 Abnormal Heart Sounds: Absent: systolic murmur, diastolic murmur, rub, S3 Gallop, S4 Gallop, click, other - Peripheral edema leg Peripheral Edema: bilateral: None - Gastrointestinal General gastrointestinal: Present: normal bowel sounds, soft - Neurologic Neurologic: Present: CNII-XII intact - Musculoskeletal Musculoskeletal: Present: strength equal bilaterally - Psychiatric Psychiatric: Present: A&O x's 3, appropriate affect, intact judgment & insight - Labs CBC & Chem 7: 08/10/20 09:15 08/10/20 09:15 Labs: Microbiology - Last 24 Hours (Table) 08/08/20 23:26 Blood Culture Gram Stain - Final Blood Blood Culture - Final Alpha Hemolytic Streptococcus - Imaging and Cardiology MRI - head: report reviewed (no mets) Assessment and Plan (1) Nausea & vomiting Narrative/Plan: MRI brain negative, reviewed with pt. Symptom improved Current Visit: Yes Status: Acute Priority: High Code(s): R11.2 - NAUSEA WITH VOMITING, UNSPECIFIED SNOMED Code(s): 53402545 (2) Radiation esophagitis Narrative/Plan: Kools with dex ordered-symptoms are stable, pt can eat and drink Current Visit: Yes Status: Acute Priority: High Code(s): K20.80 - OTHER ESOPHAGITIS WITHOUT BLEEDING; T66.XXXA - RADIATION SICKNESS, UNSPECIFIED, INITIAL ENCOUNTER SNOMED Code(s): 534103105 (3) Primary lung adenocarcinoma Narrative/Plan: Pt is s/p 1st carbo/alimta with concurrent XRT. Due for cycle 2 yesterday. Hold chemo until current acute condition controlled. Current Visit: Yes Status: Acute Priority: High Code(s): C34.90 - MALIGNANT NEOPLASM OF UNSP PART OF UNSP BRONCHUS OR LUNG SNOMED Code(s): 020386901 Plan: Positive blood cultures-reason for presenting symptoms. ID following, aggressive abx
[2020-08-11] MEDS: HYDROcodone/APAP 10-325MG 1 EACH TAB PO PRN (21:28)
--- NOTE | 2020-08-11 22:39 | PN ---
PROGRESS NOTE DATE OF SERVICE: 08/11/2020 REASON FOR FOLLOWUP: Bacteremia and question of pneumonia. INTERVAL HISTORY: Patient is afebrile. The patient is breathing comfortably today. The patient denies having any chest pain. She did have a cough, not bringing up any sputum. No nausea, no vomiting. No abdominal pain or diarrhea. PHYSICAL EXAMINATION: Blood pressure 138/86, pulse of 77, temperature is 97.8. She is 95% on room air. General description is a middle-aged female lying in in no distress. Respiratory system: Unlabored breathing, decreased intensity of breath sounds. No wheeze. HEART: S1, S2. Regular rate and rhythm. Abdomen soft. No tenderness. LABS: Hemoglobin is 10.6, white count 8.9, BUN of 8, creatinine 0.56. DIAGNOSTIC IMPRESSION AND PLAN: Patient admitted to the hospital with fever with secondary to enterococcus bacteremia, positive concern for possible PICC line versus pneumonia. The patient is currently covered with Zosyn to continue with fever responded while waiting for the final ID of this pathogen and monitor clinical course closely. MMODL / IJN: [id number] /
[2020-08-12] MEDS: HYDROmorphone 0.5 MG/0.5 ML SYRINGE IVP PRN ×4 (01:15→22:00)
[2020-08-12] MEDS: dexAMETHasone ORAL SOLUTION 4 MG/ML VIAL PO SCH ×4 (01:16→21:56)
[2020-08-12] MEDS: MAG HYDROX/AL HYDROX/SIMETH 30 ML, LIDOCAINE VISCOUS 30 ML, diphenhydrAMINE ELIXIR 75 M... PO SCH ×8 (01:17→08:58)
[2020-08-12] MEDS: PIPERACILLIN-TAZOBACTAM 3.375 GM in SODIUM CHLORIDE 0.9% 100 ML IVPB SCH ×3 (01:17→16:46)
--- NOTE | 2020-08-12 06:13 | PN ---
PROGRESS NOTE ADDENDUM: Please add Enterococcus bacteremia. Awaiting final microbiology report. MMODL / IJN: [id number] /
--- NOTE | 2020-08-12 06:43 | PN ---
PROGRESS NOTE A 60-year-old white female who came in with COPD exacerbation, tracheobronchitis, lung cancer, soft tissue mass in a medial right lower lobe of 5.1 x 2 cm. Trace pleural effusions, possible pneumonia, patchy infiltrate inferior lingula, possible small pneumonia there, trace bilateral pleural effusions, pulmonary artery hypertension. Her breathing is improving. Cardiovascular S1-S2. Lungs scattered rhonchi and wheeze. Hematology negative Homans. Psych fair mood and affect. Ophthalmologic pupils equal, round, reactive. Brain MRI shows no metastases. Wait for Dr. Eli to recommend long-term antibiotics and set her up for possible discharge and chemotherapy as an outpatient. MMODL / IJN: [id number] /
[2020-08-12] MEDS: ALBUTEROL HFA INHALER INHALATION SCH ×4 (07:19→20:48)
[2020-08-12] MEDS: SYMBICORT 160-4.5 MCG INHALER INHALATION SCH ×2 (07:19→20:49)
[2020-08-12] MEDS: FOLIC ACID 1 MG TAB PO SCH (08:57)
[2020-08-12] MEDS: FLUCONAZOLE 100 MG TAB PO SCH (08:57)
[2020-08-12] MEDS: HEPARIN SODIUM,PORCINE/PF 5,000 UNIT/0.5 ML SYRINGE SQ SCH ×2 (08:57→21:57)
[2020-08-12] MEDS: buPROPion XL 150 MG TAB.ER.24H PO SCH ×2 (08:57→21:57)
[2020-08-12] MEDS: PANTOPRAZOLE 40 MG/10 ML VIAL IVP SCH ×2 (08:58→21:56)
[2020-08-12] MEDS: SODIUM CHLORIDE 0.9% 1,000 ML IV SCH ×3 (09:00→21:57)
[2020-08-12] MEDS: OLANZapine 5 MG TAB PO SCH (09:01)
[2020-08-12] MEDS: ALPRAZolam 0.5 MG TAB PO SCH (10:30)
[2020-08-12] MEDS: HYDROcodone/APAP 10-325MG 1 EACH TAB PO PRN ×2 (12:39→17:59)
--- NOTE | 2020-08-12 14:14 | P.PN ---
Subjective Progress Note Date: 08/12/20 Principal diagnosis: Intractable N,V, fever Pt stable today, no new symptoms to report, no fevers. Objective - Vital Signs Vital signs: Vital Signs Temp 97.9 F 08/12/20 07:12 Pulse 82 08/12/20 07:12 Resp 18 08/12/20 07:12 BP 113/72 08/12/20 07:12 Pulse Ox 92 L 08/12/20 07:12 Intake & Output 08/11/20 08/12/20 08/12/20 18:59 06:59 18:59 Weight 88.904 kg Other: Voiding Method Toilet Toilet Toilet # Voids 3 1 - Constitutional General appearance: Present: cooperative, no acute distress, obese - EENT Eyes: Present: anicteric sclerae, EOMI ENT: Present: hearing grossly normal - Respiratory Respiratory: bilateral: CTA - Cardiovascular Details: moderate finger and toe clubbing Rhythm: regular Heart sounds: normal: S1, S2 Abnormal Heart Sounds: Absent: systolic murmur, diastolic murmur, rub, S3 Gallop, S4 Gallop, click, other - Peripheral edema leg Peripheral Edema: bilateral: None - Gastrointestinal General gastrointestinal: Present: normal bowel sounds, soft - Integumentary Integumentary: Present: normal - Neurologic Neurologic: Present: CNII-XII intact - Musculoskeletal Musculoskeletal: Present: strength equal bilaterally - Psychiatric Psychiatric: Present: A&O x's 3, appropriate affect, intact judgment & insight - Labs CBC & Chem 7: 08/10/20 09:15 08/10/20 09:15 Labs: Microbiology - Last 24 Hours (Table) 08/11/20 21:24 Sputum Culture - Preliminary Sputum 08/10/20 16:30 Blood Culture - Preliminary Blood No Growth after 24 hours 08/10/20 16:14 Blood Culture - Preliminary Blood No Growth after 24 hours 08/08/20 23:26 Blood Culture Gram Stain - Final Blood Blood Culture - Final Alpha Hemolytic Streptococcus Assessment and Plan (1) Nausea & vomiting Current Visit: Yes Status: Resolved Priority: High Code(s): R11.2 - NAUSEA WITH VOMITING, UNSPECIFIED SNOMED Code(s): 50916965 (2) Radiation esophagitis Narrative/Plan: Kools with dex ordered-symptoms are stable, pt can eat and drink. Volume of kools increased per pt request. Current Visit: Yes Status: Acute Priority: High Code(s): K20.80 - OTHER ESOPHAGITIS WITHOUT BLEEDING; T66.XXXA - RADIATION SICKNESS, UNSPECIFIED, INITIAL ENCOUNTER SNOMED Code(s): 495491932 (3) Primary lung adenocarcinoma Narrative/Plan: Pt is s/p 1st carbo/alimta with concurrent XRT. Due for cycle 2 earlier this week. Hold chemo until ID clears pt from infection standpoint. Pt may require prolonged abx therapy so, will have to discuss with ID appropriate time to resume chemo/XRT. Will contact Rad Onc and inform them of pt hospitalization, delay treatment Reviewed report of pt CT chest at diagnosis and compared documented tumor size to current CT. The mass has decreased in size (reported at 5.3 x 3.3 cm lesion at diagnosis, current CT 5.1 x 2 cm). Symptoms are certainly better. Cont treatment soon. Current Visit: Yes Status: Acute Priority: High Code(s): C34.90 - MALIGNANT NEOPLASM OF UNSP PART OF UNSP BRONCHUS OR LUNG SNOMED Code(s): 098927849 Plan: Positive blood cultures-reason for presenting symptoms. ID following, a ggressive abx cont.
[2020-08-12] MEDS: MAG HYDROX/AL HYDROX/SIMETH 30 ML, diphenhydrAMINE ELIXIR 75 MG, LIDOCAINE VISCOUS 30 ML PO SCH ×6 (16:52→21:59)
[2020-08-12] MEDS ORDERED: MAG HYDROX/AL HYDROX/SIMETH 30 ML, diphenhydrAMINE ELIXIR 75 MG, LIDOCAINE VISCOUS 30 ML PO SCH ×3 (18:00)
--- NOTE | 2020-08-12 18:42 | PN ---
PROGRESS NOTE DATE OF SERVICE: 08/12/2020 REASON FOR FOLLOWUP: Fever, pneumonia and bacteremia. INTERVAL HISTORY: Patient is afebrile. The patient is breathing comfortably. Has been complaining of some pain in her chest tumor area, no worsening though she continued to have a cough with occasional sputum. No vomiting. No abdominal pain or diarrhea. PHYSICAL EXAMINATION: Blood pressure 141/85, pulse of 84, temperature 98. She is 92% on room air. General description is a middle-aged female up in the bed in no distress. Respiratory system: Unlabored breathing, decreased intensity of breath sounds. No wheeze. HEART: S1, S2. Regular rate and rhythm. Abdomen soft, no tenderness. LABS: Hemoglobin is 10.8, white count 8.9, BUN of 8, creatinine 0.56. Blood culture repeat has been negative so far. DIAGNOSTIC IMPRESSION/PLAN: Patient admitted to the hospital with fever with concern for pneumonia versus a PICC line infection. However, the patient has cleared her bacteremia very quickly, that will make it to be less likely PICC line related. Patient is covered with Zosyn to continue and monitor clinical course closely. MMODL / IJN: [id number] /
--- NOTE | 2020-08-12 19:30 | P.PN ---
Subjective Progress Note Date: 08/12/20 Principal diagnosis: Retrosternal burning sensation likely related to joselito esophagitis, continue Diflucan Non-small cell is stage IIIB cancer on chemo and radiation therapy Bacteremia due to strep final ID pending on Zosyn End-stage COPD Chronic hypoxic respiratory failure 08/12/2020, patient seen eval examined during the rounds labs reviewed medications reviewed care plan discussed, respiratory status slightly better now nausea improved significantly breathing status improved, but is still congested, remains on broad-spectrum antibiotics, computed tomography scan reviewed finding consistent with central large mass and secondary compresses atelectasis and pneumonia 08/11/2020, patient seen eval examined during the rounds labs reviewed medications reviewed care plan discussed, awake and alert sitting upright on the bed breathing slightly better denies any chest pain, nausea and vomiting improved as well able to swallow well, This is a pleasant 60-year-old female with end-stage COPD due to smoking and nicotine use, patient has been diagnosed as large mediastinal mass currently undergoing chemo and radiation for lung cancer, for last several days she is not feeling well increasing shortness of breath developed burning sensation sensation in the chest came into the hospital for further evaluation, on arrival she was noted to have a white cell count of 11,500, normal renal functions, elevated LDH of 4000, current one is PCR negative, blood cultures positive for Streptococcus species, currently patient is on Zithromax along with Zosyn Objective - Vital Signs Vital signs: Vital Signs Temp 98 F 08/12/20 13:49 Pulse 84 08/12/20 13:49 Resp 18 08/12/20 13:49 BP 141/85 08/12/20 13:49 Pulse Ox 92 L 08/12/20 13:49 Intake & Output 08/12/20 08/12/20 08/13/20 06:59 18:59 06:59 Other: Voiding Method Toilet Toilet # Voids 1 3 - Exam - Constitutional General appearance: average body habitus, cooperative, disheveled - EENT Eyes: PERRLA Ears: bilateral: normal - Neck Neck: normal ROM Carotids: bilateral: upstroke normal - Respiratory Respiratory: bilateral: diminished - Cardiovascular Rhythm: regular Heart sounds: normal: S1, S2 - Gastrointestinal General gastrointestinal: distended - Neurologic Neurologic: CNII-XII intact - Musculoskeletal Musculoskeletal: gait normal, generalized weakness, strength equal bilaterally - Psychiatric Psychiatric: A&O x's 3, appropriate affect, intact judgment & insight - Labs CBC & Chem 7: 08/10/20 09:15 08/10/20 09:15 Labs: Microbiology - Last 24 Hours (Table) 08/10/20 16:30 Blood Culture - Preliminary Blood No Growth after 48 hours 08/10/20 16:14 Blood Culture - Preliminary Blood No Growth after 48 hours 08/11/20 21:24 Gram Stain - Preliminary Sputum Sputum Culture - Preliminary Assessment and Plan Assessment: Postobstructive pneumonia Acute on chronic hypoxic respiratory failure Retrosternal burning sensation likely related to joselito esophagitis, continue Diflucan Non-small cell is stage IIIB cancer on chemo and radiation therapy Alphahemolytic streptococcus bacteremia on Zosyn however repeat cultures are negative End-stage COPD Plan: Continue to gently hydrate Continue Diflucan If symptoms not improve will consider GI consult and upper endoscopy for biopsy and sampling Continue broad-spectrum antibiotics Bronchodilators DVT prophylaxis Time with Patient: Greater than 30
[2020-08-12] MEDS ORDERED: VANCOMYCIN IV PER PHARMACY 1 EACH MISC MISCELLANE PRN (21:21)
[2020-08-12] MEDS ORDERED: VANCOMYCIN 1,750 MG in SODIUM CHLORIDE 0.9% 500 ML 500 ML IVPB ONE (22:00)
[2020-08-13] MEDS: PIPERACILLIN-TAZOBACTAM 3.375 GM in SODIUM CHLORIDE 0.9% 100 ML IVPB SCH ×3 (01:56→17:26)
[2020-08-13] MEDS: HYDROcodone/APAP 10-325MG 1 EACH TAB PO PRN ×3 (02:04→21:37)
[2020-08-13] MEDS: MAG HYDROX/AL HYDROX/SIMETH 30 ML, diphenhydrAMINE ELIXIR 75 MG, LIDOCAINE VISCOUS 30 ML PO SCH ×12 (05:54→23:06)
[2020-08-13] MEDS: HYDROmorphone 0.5 MG/0.5 ML SYRINGE IVP PRN ×4 (05:55→23:07)
[2020-08-13] MEDS: dexAMETHasone ORAL SOLUTION 4 MG/ML VIAL PO SCH ×4 (05:56→23:07)
[2020-08-13] MEDS: SODIUM CHLORIDE 0.9% 1,000 ML IV SCH ×2 (05:59→17:26)
[2020-08-13 09:13] LABS: African American GFR (CKD) >90 (>60 ml/min/1.73 sqM); Non-African American GFR(CKD) >90 (>60 ml/min/1.73 sqM)
[2020-08-13] MEDS: ALBUTEROL HFA INHALER INHALATION SCH ×4 (09:22→20:39)
[2020-08-13] MEDS: SYMBICORT 160-4.5 MCG INHALER INHALATION SCH ×2 (09:22→20:39)
[2020-08-13] MEDS: PANTOPRAZOLE 40 MG/10 ML VIAL IVP SCH (09:39)
[2020-08-13] MEDS: HEPARIN SODIUM,PORCINE/PF 5,000 UNIT/0.5 ML SYRINGE SQ SCH ×2 (09:39→21:37)
[2020-08-13] MEDS: FLUCONAZOLE 100 MG TAB PO SCH (09:39)
[2020-08-13] MEDS: FOLIC ACID 1 MG TAB PO SCH (09:39)
[2020-08-13] MEDS: buPROPion XL 150 MG TAB.ER.24H PO SCH ×2 (09:40→23:05)
[2020-08-13] MEDS: OLANZapine 5 MG TAB PO SCH (09:40)
[2020-08-13] MEDS: VANCOMYCIN 1,500 MG in SODIUM CHLORIDE 0.9% 250 ML IVPB SCH ×2 (09:44→21:35)
[2020-08-13] MEDS: ALPRAZolam 0.5 MG TAB PO SCH ×2 (10:31→21:38)
[2020-08-13 11:01] LABS: Anisocytosis Slight; Basophils % (A) 0 %; Eosinophils % (A) 0 %; HCT 36.2 % (34.0-46.0); HGB 11.4 gm/dL (11.4-16.0); Hypochromasia Marked; Lymphocytes # (A) 0.4 k/uL (1.0-4.8); Lymphocytes % (A) 3 %; MCH 27.3 pg (25.0-35.0); MCHC 31.6 g/dL (31.0-37.0); MCV 86.4 fL (80.0-100.0); Mean Platelet Volume 7.2; Monocytes # (A) 1.2 k/uL (0-1.0); Monocytes % (A) 8 %; Neutrophils # (A) 12.4 k/uL (1.3-7.7); Neutrophils % (A) 88 %; Platelet Count 515 k/uL (150-450); RBC 4.19 m/uL (3.80-5.40); RDW 16.5 % (11.5-15.5); WBC 14.1 k/uL (3.8-10.6)
--- NOTE | 2020-08-13 11:09 | P.PN ---
Subjective Progress Note Date: 08/13/20 Principal diagnosis: Retrosternal burning sensation likely related to joselito esophagitis, continue Diflucan Non-small cell is stage IIIB cancer on chemo and radiation therapy Bacteremia due to strep final ID pending on Zosyn End-stage COPD Chronic hypoxic respiratory failure 08/13/2020, patient seen eval examined his to left central congestion and cough, remains on broad-spectrum antibiotics, labs reviewed, patient remains on broad- spectrum antibiotics breathing treatments as well as oral Decadron tolerating well 08/12/2020, patient seen eval examined during the rounds labs reviewed medications reviewed care plan discussed, respiratory status slightly better now nausea improved significantly breathing status improved, but is still congested, remains on broad-spectrum antibiotics, computed tomography scan reviewed finding consistent with central large mass and secondary compresses atelectasis and pneumonia 08/11/2020, patient seen eval examined during the rounds labs reviewed medications reviewed care plan discussed, awake and alert sitting upright on the bed breathing slightly better denies any chest pain, nausea and vomiting improved as well able to swallow well, This is a pleasant 60-year-old female with end-stage COPD due to smoking and nicotine use, patient has been diagnosed as large mediastinal mass currently undergoing chemo and radiation for lung cancer, for last several days she is not feeling well increasing shortness of breath developed burning sensation sensation in the chest came into the hospital for further evaluation, on arrival she was noted to have a white cell count of 11,500, normal renal functions, elevated LDH of 4000, current one is PCR negative, blood cultures positive for Streptococcus species, currently patient is on Zithromax along with Zosyn Objective - Vital Signs Vital signs: Vital Signs Temp 97.7 F 08/13/20 08:08 Pulse 71 08/13/20 08:08 Resp 18 08/13/20 08:08 BP 159/95 08/13/20 08:08 Pulse Ox 94 L 08/13/20 08:08 Intake & Output 08/12/20 08/13/20 08/13/20 18:59 06:59 18:59 Other: Voiding Method Toilet Toilet Toilet # Voids 3 1 - Exam - Constitutional General appearance: average body habitus, cooperative, disheveled - EENT Eyes: PERRLA Ears: bilateral: normal - Neck Neck: normal ROM Carotids: bilateral: upstroke normal - Respiratory Respiratory: bilateral: diminished - Cardiovascular Rhythm: regular Heart sounds: normal: S1, S2 - Gastrointestinal General gastrointestinal: distended - Neurologic Neurologic: CNII-XII intact - Musculoskeletal Musculoskeletal: gait normal, generalized weakness, strength equal bilaterally - Psychiatric Psychiatric: A&O x's 3, appropriate affect, intact judgment & insight - Labs CBC & Chem 7: 08/13/20 10:15 08/13/20 08:17 Labs: Abnormal Lab Results - Last 24 Hours (Table) 08/13/20 08/13/20 Range/Units 08:17 10:15 WBC 14.1 H (3.8-10.6) k/uL RDW 16.5 H (11.5-15.5) % Plt Count 515 H (150-450) k/uL Neutrophils # 12.4 H (1.3-7.7) k/uL Lymphocytes # 0.4 L (1.0-4.8) k/uL Monocytes # 1.2 H (0-1.0) k/uL Creatinine 0.51 L (0.52-1.04) mg/dL Microbiology - Last 24 Hours (Table) 08/11/20 16:41 Blood Culture Gram Stain - Preliminary Blood 08/10/20 16:14 Blood Culture - Final Blood 08/10/20 16:30 Blood Culture - Preliminary Blood No Growth after 48 hours 08/11/20 21:24 Gram Stain - Preliminary Sputum Sputum Culture - Preliminary Assessment and Plan Assessment: Postobstructive pneumonia Acute on chronic hypoxic respiratory failure Retrosternal burning sensation likely related to joselito esophagitis, continue Diflucan Non-small cell is stage IIIB cancer on chemo and radiation therapy Alphahemolytic streptococcus bacteremia on Zosyn however repeat cultures are negative End-stage COPD Plan: Continue to gently hydrate Continue Diflucan If symptoms not improve will consider GI consult and upper endoscopy for biopsy and sampling Continue broad-spectrum antibiotics Bronchodilators DVT prophylaxis Time with Patient: Greater than 30
--- NOTE | 2020-08-13 16:15 | P.PN ---
Subjective Progress Note Date: 08/13/20 Principal diagnosis: Intractable N,V, fever Pt is stable today, no fevers, dysphagia/odynophagia 2/2 to tumor compression and radiation irritation. She does get some relief with analgesic medications. She does have to modify her diet. Objective - Vital Signs Vital signs: Vital Signs Temp 97.4 F L 08/13/20 14:00 Pulse 75 08/13/20 14:00 Resp 18 08/13/20 14:00 BP 154/111 08/13/20 14:00 Pulse Ox 96 08/13/20 14:00 Intake & Output 08/12/20 08/13/20 08/13/20 18:59 06:59 18:59 Weight 88.904 kg Other: Voiding Method Toilet Toilet Toilet # Voids 3 1 - Constitutional General appearance: Present: cooperative, no acute distress, obese - EENT Eyes: Present: anicteric sclerae, EOMI ENT: Present: hearing grossly normal - Respiratory Respiratory: bilateral: CTA (Bronchial breath sounds in the periphery) - Cardiovascular Details: Severe finger and toe clubbing Rhythm: regular Heart sounds: normal: S1, S2 Abnormal Heart Sounds: Absent: systolic murmur, diastolic murmur, rub, S3 Gallop, S4 Gallop, click, other - Gastrointestinal General gastrointestinal: Present: normal bowel sounds, soft - Integumentary Integumentary: Present: normal - Neurologic Neurologic: Present: CNII-XII intact - Musculoskeletal Musculoskeletal: Present: strength equal bilaterally - Psychiatric Psychiatric: Present: A&O x's 3, appropriate affect, intact judgment & insight - Labs CBC & Chem 7: 08/13/20 10:15 08/13/20 08:17 Labs: Abnormal Lab Results - Last 24 Hours (Table) 08/13/20 08/13/20 Range/Units 08:17 10:15 WBC 14.1 H (3.8-10.6) k/uL RDW 16.5 H (11.5-15.5) % Plt Count 515 H (150-450) k/uL Neutrophils # 12.4 H (1.3-7.7) k/uL Lymphocytes # 0.4 L (1.0-4.8) k/uL Monocytes # 1.2 H (0-1.0) k/uL Creatinine 0.51 L (0.52-1.04) mg/dL Microbiology - Last 24 Hours (Table) 08/11/20 16:41 Blood Culture Gram Stain - Preliminary Blood 08/10/20 16:14 Blood Culture - Final Blood 08/10/20 16:30 Blood Culture - Preliminary Blood No Growth after 48 hours 08/11/20 21:24 Gram Stain - Preliminary Sputum Sputum Culture - Preliminary Assessment and Plan (1) Nausea & vomiting Narrative/Plan: Patient doing much better, no further complaints of nausea or vomiting. Most of her complaints are dysphagia/odynophagia Current Visit: Yes Status: Resolved Priority: High Code(s): R11.2 - NAUSEA WITH VOMITING, UNSPECIFIED SNOMED Code(s): 96080509 (2) Radiation esophagitis Narrative/Plan: Volume of kools increased a bit more as it provides patient significant relief and she can tolerate a little bit more of oral intake. Reviewed with the patient and RN plan to find foods and fluids of the patient can consume. Patient is going to have to manage the painful/difficulty swallowing until treatment is completed. She will keep track of what foods/fluids/consistencies are most tolerable and nursing will review with the Dietitian to see if this is adequate nutrition for patient. She will be eating like this for probably about another 4-5 weeks. Patient was agreeable with plan. Current Visit: Yes Status: Acute Priority: High Code(s): K20.80 - OTHER ESOPHAGITIS WITHOUT BLEEDING; T66.XXXA - RADIATION SICKNESS, UNSPECIFIED, INITIAL ENCOUNTER SNOMED Code(s): 582011488 (3) Primary lung adenocarcinoma Narrative/Plan: Pt is s/p 1st carbo/alimta with concurrent XRT. Due for cycle 2 earlier this week. Hold chemo until ID clears pt from infection standpoint. Pt may require prolonged abx therapy so, will have to discuss with ID appropriate time to resume chemo/XRT. Will contact Rad Onc and inform them of pt hospitalization, delay treatment Reviewed report of pt CT chest at diagnosis and compared documented tumor size to current CT. The mass has decreased in size (reported at 5.3 x 3.3 cm lesion at diagnosis, current CT 5.1 x 2 cm). Symptoms are certainly better. Cont treatment soon. Current Visit: Yes Status: Acute Priority: High Code(s): C34.90 - MALIGNANT NEOPLASM OF UNSP PART OF UNSP BRONCHUS OR LUNG SNOMED Code(s): 126082287 Plan: Positive blood cultures-reason for presenting symptoms. ID following, aggressive abx cont.
[2020-08-13] MEDS: SUCRALFATE 1 GM TAB PO SCH ×2 (17:27→23:05)
[2020-08-13] MEDS: PANTOPRAZOLE 40 MG TABLET PO SCH (21:38)
--- NOTE | 2020-08-13 23:39 | PN ---
PROGRESS NOTE DATE OF SERVICE: 08/13/2020 REASON FOR FOLLOWUP: Pneumonia and bacteremia. INTERVAL HISTORY: The patient is afebrile. The patient has been breathing comfortably. The patient continues to complain of some chest pain. No worsening though. She did have a cough, not bringing up any sputum. No nausea, no vomiting. No abdominal pain. No diarrhea. PHYSICAL EXAMINATION: Her blood pressure is 154/100 with a pulse of 75, temperature 97.4, She is 96% on room air. General description: The patient is a middle-aged female up in the bed in no distress. Respiratory system: Unlabored breathing, decreased breath sounds in the base, with no wheeze. Heart S1, S2. Regular rate and rhythm. Abdomen soft, no tenderness. LABS: Hemoglobin 11.1, white count 14.1. DIAGNOSTIC IMPRESSION AND PLAN: Patient with Alpha hemolytic streptococcal bacteremia, possible skin contamination related to the PICC line. Follow the blood culture with gram-positive, more likely contaminant. Sputum culture pending. Patient to continue with Zosyn. The patient's fever has responded and monitor clinical course closely. MMODL / IJN: [id number] /
--- NOTE | 2020-08-14 00:05 | PN ---
PROGRESS NOTE 60-year-old white female who has been treated for non-small cell lung cancer, chemoradiation. Shortness of breath, cough, congestion are improving. She has positive blood culture for which repeat blood cultures have been ordered. She is on vancomycin, Zosyn, antibiotics. White count 14.1. The blood culture shows alpha hemolytic strep. Continue with Vanco and Zosyn. Await for Dr. Eli to clear for discharge. We will have to have 72 hours negative cultures. PROGNOSIS: Guarded. Follow up in the next 24 to 48 hours for possible discharge home, possibly Monday if repeat cultures are negative. High-dose antibiotics in the meantime, steroids for breathing treatments. Her cough and congestion are better. Psych: She has flat mood and affect. Discussed with her going on antidepressant. She agreed to go on Wellbutrin XR 150 b.i.d., which helped her in the past. She has also used this to help quit smoking. Lungs are fairly clear. CARDIOVASCULAR: S1, S2. We will start Wellbutrin. Continue antibiotics as mentioned above. Steroids and updraft treatments. Prognosis guarded. MMODL / IJN: [id number] /
[2020-08-14] MEDS: SODIUM CHLORIDE 0.9% 1,000 ML IV SCH ×3 (01:48→22:37)
[2020-08-14] MEDS: PIPERACILLIN-TAZOBACTAM 3.375 GM in SODIUM CHLORIDE 0.9% 100 ML IVPB SCH ×3 (01:51→17:39)
[2020-08-14] MEDS: HYDROcodone/APAP 10-325MG 1 EACH TAB PO PRN ×4 (02:02→22:44)
[2020-08-14] MEDS: dexAMETHasone ORAL SOLUTION 4 MG/ML VIAL PO SCH ×5 (06:22→22:43)
[2020-08-14] MEDS: MAG HYDROX/AL HYDROX/SIMETH 30 ML, diphenhydrAMINE ELIXIR 75 MG, LIDOCAINE VISCOUS 30 ML PO SCH ×9 (06:22→17:39)
[2020-08-14] MEDS: HYDROmorphone 0.5 MG/0.5 ML SYRINGE IVP PRN ×3 (06:23→21:37)
[2020-08-14] MEDS: FOLIC ACID 1 MG TAB PO SCH (08:50)
[2020-08-14] MEDS: VANCOMYCIN 1,500 MG in SODIUM CHLORIDE 0.9% 250 ML IVPB SCH (08:51)
[2020-08-14] MEDS: buPROPion XL 150 MG TAB.ER.24H PO SCH ×2 (08:51→21:38)
[2020-08-14] MEDS: FLUCONAZOLE 100 MG TAB PO SCH (08:51)
[2020-08-14] MEDS: PANTOPRAZOLE 40 MG TABLET PO SCH ×2 (08:51→21:39)
[2020-08-14] MEDS: SUCRALFATE 1 GM TAB PO SCH ×4 (08:51→21:38)
[2020-08-14] MEDS: HEPARIN SODIUM,PORCINE/PF 5,000 UNIT/0.5 ML SYRINGE SQ SCH ×2 (08:52→21:38)
[2020-08-14] MEDS: OLANZapine 5 MG TAB PO SCH (08:52)
[2020-08-14 09:14] LABS: Basophils # (A) 0.09 X 10*3/uL (0.00-0.10); Basophils % (A) 0.8 %; Eosinophils # (A) 0 X 10*3/uL (0.04-0.35); Eosinophils % (A) 0 %; HCT 38.5 % (37.2-46.3); HGB 11.6 g/dL (12.0-15.0); Lymphocytes # (A) 0.45 X 10*3/uL (0.90-5.00); Lymphocytes % (A) 4.2 %; MCH 26.1 pg (27.0-32.0); MCHC 30.1 g/dL (32.0-37.0); MCV 86.5 fL (80.0-97.0); Mean Platelet Volume 9.7 fL (9.5-12.2); Monocytes # (A) 0.82 X 10*3/uL (0.20-1.00); Monocytes % (A) 7.6 %; Neutrophils # (A) 9.04 X 10*3/uL (1.80-7.70); Platelet Count 485 X 10*3/uL (140-440); RBC 4.45 X 10*6/uL (4.10-5.20); RDW 18.3 % (11.5-14.5); WBC 10.77 X 10*3/uL (4.50-10.00)
[2020-08-14] MEDS: SYMBICORT 160-4.5 MCG INHALER INHALATION SCH ×2 (09:24→19:33)
[2020-08-14] MEDS: ALBUTEROL HFA INHALER INHALATION SCH ×4 (09:24→19:33)
[2020-08-14 09:45] LABS: African American GFR (CKD) 113.2 (60.0-200.0); Albumin 3.4 g/dL (3.80-4.90); Albumin/Globulin Ratio 1.21 (1.60-3.17); Anion Gap 11.2 mmol/L (4.00-12.00); BUN/Creat Ratio 23.33 Ratio (12.00-20.00); Calcium 9.3 mg/dL (8.7-10.3); Carbon Dioxide 21.8 mmol/L (21.6-31.8); Globulin 2.8 g/dL (1.6-3.3); Non-African American GFR(CKD) 97.7 (60.0-200.0); Potassium 3.6 mmol/L (3.5-5.5); Total Bilirubin 0.2 mg/dL (0.2-1.2); Total Protein 6.2 g/dL (6.2-8.2)
--- NOTE | 2020-08-14 11:24 | P.PN ---
Subjective Progress Note Date: 08/14/20 Principal diagnosis: Retrosternal burning sensation likely related to joselito esophagitis, continue Diflucan Non-small cell is stage IIIB cancer on chemo and radiation therapy Bacteremia due to strep final ID pending on Zosyn End-stage COPD Chronic hypoxic respiratory failure 08/14/2020, patient seen and evaluated examined continued to have complaint of dysphagia along with burning sensation while swallowing food including water and solid food, patient likely has joselito esophagitis may very well be invasive, [place] require long-term therapy would need EGD to confirm it so it can be treated prior to next bout of chemotherapy and radiation therapy respiratory status however stable denies any chest pain remains on supplemental oxygen off and 08/13/2020, patient seen eval examined his to left central congestion and cough, remains on broad-spectrum antibiotics, labs reviewed, patient remains on broad- spectrum antibiotics breathing treatments as well as oral Decadron tolerating well 08/12/2020, patient seen eval examined during the rounds labs reviewed medications reviewed care plan discussed, respiratory status slightly better now nausea improved significantly breathing status improved, but is still congested, remains on broad-spectrum antibiotics, computed tomography scan reviewed finding consistent with central large mass and secondary compresses atelectasis and pneumonia 08/11/2020, patient seen eval examined during the rounds labs reviewed medications reviewed care plan discussed, awake and alert sitting upright on the bed breathing slightly better denies any chest pain, nausea and vomiting improved as well able to swallow well, This is a pleasant 60-year-old female with end-stage COPD due to smoking and nicotine use, patient has been diagnosed as large mediastinal mass currently undergoing chemo and radiation for lung cancer, for last several days she is not feeling well increasing shortness of breath developed burning sensation sensation in the chest came into the hospital for further evaluation, on arrival she was noted to have a white cell count of 11,500, normal renal functions, elevated LDH of 4000, current one is PCR negative, blood cultures positive for Streptococcus species, currently patient is on Zithromax along with Zosyn Objective - Vital Signs Vital signs: Vital Signs Temp 97.8 F 08/14/20 07:38 Pulse 65 08/14/20 07:38 Resp 18 08/14/20 08:00 BP 159/96 08/14/20 07:38 Pulse Ox 95 08/14/20 07:38 Intake & Output 08/13/20 08/14/20 08/14/20 18:59 06:59 18:59 Weight 88.904 kg Other: Voiding Method Toilet Toilet # Voids 3 1 # Bowel Movements 0 - Exam - Constitutional General appearance: average body habitus, cooperative, disheveled - EENT Eyes: PERRLA Ears: bilateral: normal - Neck Neck: normal ROM Carotids: bilateral: upstroke normal - Respiratory Respiratory: bilateral: diminished - Cardiovascular Rhythm: regular Heart sounds: normal: S1, S2 - Gastrointestinal General gastrointestinal: distended - Neurologic Neurologic: CNII-XII intact - Musculoskeletal Musculoskeletal: gait normal, generalized weakness, strength equal bilaterally - Psychiatric Psychiatric: A&O x's 3, appropriate affect, intact judgment & insight - Labs CBC & Chem 7: 08/14/20 06:42 08/14/20 06:42 Labs: Abnormal Lab Results - Last 24 Hours (Table) 08/14/20 08/14/20 Range/Units 06:42 06:42 WBC 10.77 H (4.50-10.00) X 10*3/uL Hgb 11.6 L (12.0-15.0) g/dL MCH 26.1 L (27.0-32.0) pg MCHC 30.1 L (32.0-37.0) g/dL RDW 18.3 H (11.5-14.5) % Plt Count 485 H (140-440) X 10*3/uL Absolute Nucleated RBC 0.02 H (0.00-0.00) X 10*3/uL Immature Gran # 0.37 H (0.00-0.04) X 10*3/uL Neutrophils # 9.04 H (1.80-7.70) X 10*3/uL Lymphocytes # 0.45 L (0.90-5.00) X 10*3/uL Eosinophils # 0 L (0.04-0.35) X 10*3/uL NRBC/100 WBC Diff 0.2 H (0.0-0.0) /100 WBCS BUN/Creatinine Ratio 23.33 H (12.00-20.00) Ratio Glucose 135 H (70-110) mg/dL AST 42 H (13-35) U/L Albumin 3.40 L (3.80-4.90) g/dL Albumin/Globulin Ratio 1.21 L (1.60-3.17) g/dL Microbiology - Last 24 Hours (Table) 08/11/20 21:24 Gram Stain - Final Sputum Sputum Culture - Final 08/12/20 21:27 Blood Culture - Preliminary Blood No Growth after 24 hours 08/10/20 16:30 Blood Culture - Preliminary Blood No Growth after 72 hours Assessment and Plan Assessment: Postobstructive pneumonia Acute on chronic hypoxic respiratory failure Retrosternal burning sensation likely related to joselito esophagitis, continue Diflucan Non-small cell is stage IIIB cancer on chemo and radiation therapy Alphahemolytic streptococcus bacteremia on Zosyn however repeat cultures are negative End-stage COPD Plan: Consider EGD and biopsy of the esophagus, GI services has been consulted Continue to gently hydrate Continue Diflucan Continue broad-spectrum antibiotics Bronchodilators DVT prophylaxis Time with Patient: Greater than 30
[2020-08-14] MEDS ORDERED: Potassium Replacement Protocol 1 EACH MISC MISCELLANE PRN (12:42)
[2020-08-14] MEDS ORDERED: POTASSIUM CHLORIDE ER 20 MEQ TAB.ER PO SCH (13:00)
--- NOTE | 2020-08-14 17:18 | P.PN ---
Subjective Progress Note Date: 08/14/20 Principal diagnosis: radiation esophagitis, bactermia Still with difficulty swallowing and oral, inflamed oralpharyngeal edema. Objective - Vital Signs Vital signs: Vital Signs Temp 98.1 F 08/14/20 14:00 Pulse 76 08/14/20 14:00 Resp 18 08/14/20 14:00 BP 151/75 08/14/20 14:00 Pulse Ox 94 L 08/14/20 14:00 Intake & Output 08/13/20 08/14/20 08/14/20 18:59 06:59 18:59 Weight 88.904 kg Other: Voiding Method Toilet Toilet # Voids 3 1 # Bowel Movements 0 - Exam - Constitutional General appearance: Present: cooperative, no acute distress, obese - EENT Eyes: Present: anicteric sclerae, EOMI ENT: Present: hearing grossly normal - Respiratory Respiratory: bilateral: CTA (Bronchial breath sounds in the periphery) - Cardiovascular Details: Severe finger and toe clubbing Rhythm: regular Heart sounds: normal: S1, S2 Abnormal Heart Sounds: Absent: systolic murmur, diastolic murmur, rub, S3 Gallop, S4 Gallop, click, other - Gastrointestinal General gastrointestinal: Present: normal bowel sounds, soft - Integumentary Integumentary: Present: normal - Neurologic Neurologic: Present: CNII-XII intact - Musculoskeletal Musculoskeletal: Present: strength equal bilaterally - Psychiatric Psychiatric: Present: A&O x's 3, appropriate affect, intact judgment & insight - Labs CBC & Chem 7: 08/14/20 06:42 08/14/20 06:42 Labs: Abnormal Lab Results - Last 24 Hours (Table) 08/14/20 08/14/20 Range/Units 06:42 06:42 WBC 10.77 H (4.50-10.00) X 10*3/uL Hgb 11.6 L (12.0-15.0) g/dL MCH 26.1 L (27.0-32.0) pg MCHC 30.1 L (32.0-37.0) g/dL RDW 18.3 H (11.5-14.5) % Plt Count 485 H (140-440) X 10*3/uL Absolute Nucleated RBC 0.02 H (0.00-0.00) X 10*3/uL Immature Gran # 0.37 H (0.00-0.04) X 10*3/uL Neutrophils # 9.04 H (1.80-7.70) X 10*3/uL Lymphocytes # 0.45 L (0.90-5.00) X 10*3/uL Eosinophils # 0 L (0.04-0.35) X 10*3/uL NRBC/100 WBC Diff 0.2 H (0.0-0.0) /100 WBCS BUN/Creatinine Ratio 23.33 H (12.00-20.00) Ratio Glucose 135 H (70-110) mg/dL AST 42 H (13-35) U/L Albumin 3.40 L (3.80-4.90) g/dL Albumin/Globulin Ratio 1.21 L (1.60-3.17) g/dL Microbiology - Last 24 Hours (Table) 08/11/20 16:41 Blood Culture Gram Stain - Final Blood Blood Culture - Final Gram Positive Bacilli 08/11/20 21:24 Gram Stain - Final Sputum Sputum Culture - Final 08/12/20 21:27 Blood Culture - Preliminary Blood No Growth after 24 hours 08/10/20 16:30 Blood Culture - Preliminary Blood No Growth after 72 hours Assessment and Plan Plan: Assessment and Plan Dysphagia: - Secondary to radiation esophagitis - Improving Radiation esophagitis - Add Dexamethasone Oral Rinse and Viscous Lidocaine 2% - Multifactorial, secondary to decreased immunity, radiation therapy, Mini, possible viral compomnent - Add Valtrex, Clometrazole lozenges - Dieticien Primary lung adenocarcinoma Pt is s/p 1st carbo/alimta with concurrent XRT. - Continue on folic acid to ensure proper methlation - Due for cycle 2 earlier this week, however positive blood cultures will Hold chemo until ID clears pt from infection standpoint. - Pt may require prolonged abx therapy so, will have to discuss with ID appropriate time to resume chemo/XRT. Will contact Rad Onc and inform them of pt hospitalization, delay treatment Reviewed report of pt CT chest at diagnosis and compared documented tumor size to current CT. The mass has decreased in size (reported at 5.3 x 3.3 cm lesion at diagnosis, current CT 5.1 x 2 cm). Symptoms are certainly better. Cont treatment soon. Current Visit: Yes Status: Acute Priority: High Code(s): C34.90 - MALIGNANT NEOPLASM OF UNSP PART OF UNSP BRONCHUS OR LUNG SNOMED Code(s): 673292943 Plan: - Continue supportive care Physician Attest: I have completed the full history and physical and agree with above dictation, dictated as a ascribe
[2020-08-14] MEDS ORDERED: MD COMMUNICATION TO PHARMACY 1 EACH MISC PO PRN (17:20)
[2020-08-14] MEDS: NYSTATIN 100,000 UNIT/ML SUSP 500,000 UNIT/5 ML CUP PO SCH ×2 (17:43→22:37)
[2020-08-14 19:38] VITALS: RESP 16
--- NOTE | 2020-08-14 19:59 | PN ---
PROGRESS NOTE DATE OF SERVICE: 08/14/2020. REASON FOR FOLLOW UP: 1. Fever, source likely pneumonia. 2. Positive blood culture with Gram-positive bacilli, likely contaminant. INTERVAL HISTORY: The patient is afebrile. The patient is breathing comfortably. She is still complaining of pain while swallowing, unable to keep anything down but no vomiting. Patient denies any chest pain. Did have a cough. No worsening sputum. No abdominal pain or diarrhea. PHYSICAL EXAMINATION: Blood pressure is 151/75, pulse of 76, temperature 98.1. She is 94% on room air. General description is a middle-aged female up in the room in no distress. Respiratory system: Unlabored breathing, decreased intensity of breath sounds. No wheeze. HEART: S1, S2. Regular rate and rhythm. ABDOMEN: Soft, no tenderness. EXTREMITIES: No edema of the feet. LABS: Hemoglobin 9.4, white count 10.7, BUN of 14, creatinine 0.6. Blood culture showing alpha hemolytic streptococcus. Repeat showing a gram-positive bacilli, likely contaminant. 08/12 blood culture so far negative. Sputum so far negative as well. IMPRESSION/PLAN: The patient admitted to the hospital with fever concerning for pneumonia. Blood cultures with gram-positive bacilli, likely contaminant. The patient is currently covered with Zosyn, to continue. However, vancomycin will be discontinued to decrease risk of nephrotoxicity. Plan to finish therapy with oral antibiotics and continue supportive care. MMODL / IJN: [id number] /
[2020-08-14] MEDS ORDERED: VANCOMYCIN TROUGH DUE 1 EACH MISC MISCELLANE ONE (20:00)
[2020-08-14] MEDS: valACYclovir 500 MG TAB PO SCH (21:38)
[2020-08-14] MEDS: CLOTRIMAZOLE TROCHE 10 MG TROCHE MUCOUS MEM SCH (21:38)
[2020-08-14] MEDS: ALPRAZolam 0.5 MG TAB PO SCH (21:39)
[2020-08-14] MEDS: LIDOCAINE VISCOUS 2% 15 ML CUP MUCOUS MEM SCH (22:43)
[2020-08-15] MEDS: MAG HYDROX/AL HYDROX/SIMETH 30 ML, diphenhydrAMINE ELIXIR 75 MG, LIDOCAINE VISCOUS 30 ML PO SCH ×9 (02:31→11:36)
[2020-08-15] MEDS: CLOTRIMAZOLE TROCHE 10 MG TROCHE MUCOUS MEM SCH ×4 (02:31→16:21)
[2020-08-15] MEDS: PIPERACILLIN-TAZOBACTAM 3.375 GM in SODIUM CHLORIDE 0.9% 100 ML IVPB SCH ×2 (02:52→08:08)
[2020-08-15] MEDS: LIDOCAINE VISCOUS 2% 15 ML CUP MUCOUS MEM SCH ×3 (02:59→15:22)
[2020-08-15] MEDS: HYDROmorphone 0.5 MG/0.5 ML SYRINGE IVP PRN ×2 (04:05→11:35)
[2020-08-15 04:14] LABS: Folate, Serum 13.6 ng/mL
--- NOTE | 2020-08-15 06:12 | PN ---
PROGRESS NOTE 60-year-old white female admitted with fever, pneumonia, adenocarcinoma of the lung. Having no chest pain. She is breathing. She has positive blood cultures. Waiting for repeat blood cultures to be negative for 72 hours. She has another blood culture looks like on August 11 with gram-positive bacilli. We will have to keep her on antibiotics. Wait for Dr. Eli's recommendations. Lungs are clear. GI soft. Hematology negative Homans. Psych: Fair mood and affect. ASSESSMENT: 1. Fever source likely pneumonia with bacteremia, likely a contaminant on the second followup one. White count 10.7. First blood culture alpha hemolytic strep. Repeat showing gram-positive cocci, most likely contaminant, 6, 7, 9, blood cultures so far negative. Sputum x-ray is negative. ASSESSMENT AND PLAN: 1. Possible pneumonia. 2. Adenocarcinoma of the lung. 3. One positive blood culture and repeat contaminant. 4. Cover with Zosyn. To continue. Vancomycin can be discontinued to decrease risk of nephrotoxicity. 5. Plan to finish therapy with oral antibiotics and continue supportive care. MMODL / IJN: [id number] /
[2020-08-15] MEDS: SYMBICORT 160-4.5 MCG INHALER INHALATION SCH (07:23)
[2020-08-15] MEDS: ALBUTEROL HFA INHALER INHALATION SCH ×3 (07:23→15:37)
[2020-08-15 08:02] LABS: Anisocytosis Slight; Basophils % (A) 0 %; Eosinophils # (A) 0.1 k/uL (0-0.7); Eosinophils % (A) 1 %; HCT 40.2 % (34.0-46.0); HGB 12.8 gm/dL (11.4-16.0); Hypochromasia Moderate; Lymphocytes # (A) 0.5 k/uL (1.0-4.8); Lymphocytes % (A) 4 %; MCH 27.2 pg (25.0-35.0); MCHC 31.8 g/dL (31.0-37.0); MCV 85.4 fL (80.0-100.0); Mean Platelet Volume 7.2; Monocytes % (A) 9 %; Neutrophils # (A) 9.8 k/uL (1.3-7.7); Neutrophils % (A) 85 %; Platelet Count 531 k/uL (150-450); RDW 16.6 % (11.5-15.5); WBC 11.5 k/uL (3.8-10.6)
[2020-08-15] MEDS: HYDROcodone/APAP 10-325MG 1 EACH TAB PO PRN (08:08)
[2020-08-15] MEDS: HEPARIN SODIUM,PORCINE/PF 5,000 UNIT/0.5 ML SYRINGE SQ SCH (08:08)
[2020-08-15] MEDS: SODIUM CHLORIDE 0.9% 1,000 ML IV SCH (08:08)
[2020-08-15] MEDS: FLUCONAZOLE 100 MG TAB PO SCH (08:09)
[2020-08-15] MEDS: PANTOPRAZOLE 40 MG TABLET PO SCH (08:09)
[2020-08-15] MEDS: FOLIC ACID 1 MG TAB PO SCH (08:09)
[2020-08-15] MEDS: buPROPion XL 150 MG TAB.ER.24H PO SCH (08:09)
[2020-08-15] MEDS: SUCRALFATE 1 GM TAB PO SCH ×2 (08:09→11:35)
[2020-08-15 08:10] LABS: ALT 29 U/L (4-34); AST 52 U/L (14-36); African American GFR (CKD) >90 (>60 ml/min/1.73 sqM); Albumin 3.3 g/dL (3.5-5.0); Albumin/Globulin Ratio 1.1; Alkaline Phosphatase 110 U/L (38-126); Anion Gap 11 mmol/L; Blood Urea Nitrogen 13 mg/dL (7-17); Calcium 8.7 mg/dL (8.4-10.2); Carbon Dioxide 25 mmol/L (22-30); Chloride 105 mmol/L (98-107); Globulin 3.1 g/dL; Glucose 136 mg/dL (74-99); Magnesium 1.9 mg/dL (1.6-2.3); Non-African American GFR(CKD) >90 (>60 ml/min/1.73 sqM); Potassium 3.5 mmol/L (3.5-5.1); Sodium 141 mmol/L (137-145); Total Bilirubin 0.3 mg/dL (0.2-1.3); Total Protein 6.4 g/dL (6.3-8.2)
[2020-08-15] MEDS: NYSTATIN 100,000 UNIT/ML SUSP 500,000 UNIT/5 ML CUP PO SCH ×2 (08:10→14:26)
[2020-08-15] MEDS: OLANZapine 5 MG TAB PO SCH (08:10)
[2020-08-15] MEDS: valACYclovir 500 MG TAB PO SCH (08:11)
[2020-08-15] MEDS: dexAMETHasone ORAL SOLUTION 4 MG/ML VIAL PO SCH ×2 (08:12→11:36)
--- NOTE | 2020-08-15 10:05 | P.GSCN ---
History of Present Illness Consult date: 08/15/20 Reason for Consult: Dysphagia History of present illness: Patient undergoing chemoradiation for lung cancer. Patient has had difficulty with dysphagia for the last several days. Been treated for possible pneumonia at this time. We were consulted for possible upper endoscopy because of the patient's persistent dysphagia. Recent CT chest shows soft tissue thickening of the esophagus. No evidence of pneumomediastinum. Review of Systems The patient denies any acute changes in vision or hearing, no dysuria or hematuria, no headache, no runny nose, no rectal bleeding or melena, no unexplained weight loss Past Medical History Past Medical History: Cancer Additional Past Medical History / Comment(s): back pain; "several tia's-Last TIA 1 1/2 YEARS AGO, pluerisy, migraines, past falls, "was told at [facility] she had non-alcoholic cirrhosis". lung cancer History of Any Multi-Drug Resistant Organisms: None Reported Past Surgical History: Back Surgery, Breast Surgery, Hysterectomy Additional Past Surgical History / Comment(s): back sx, neck sx. spleenectomy- d/t injury; benign R Breast lumpectomy, sinus sx Past Anesthesia/Blood Transfusion Reactions: No Reported Reaction Additional Past Anesthesia/Blood Transfusion Reaction / Comm: Pt hs clausterphobia Past Psychological History: Depression Smoking Status: Former smoker Past Alcohol Use History: None Reported Past Drug Use History: None Reported - Past Family History Mother Family Medical History: Cancer Additional Family Medical History / Comment(s): Father History Unknown: Yes Family Medical History: No Reported History Additional Family Medical History / Comment(s): Father was murdered Medications and Allergies Home Medications Medication Instructions Recorded Confirmed Type HYDROcodone/APAP 10-325MG [[place] 1 tab PO QID PRN 04/11/19 08/09/20 History 10-325] ALPRAZolam [Xanax] 0.5 mg PO HS 08/09/20 08/10/20 History Famotidine [Pepcid] 20 mg PO DAILY 08/09/20 08/09/20 History Fluconazole [Diflucan] 400 mg PO DAILY 08/09/20 08/09/20 History Folic Acid 1 mg PO DAILY 08/09/20 08/09/20 History Ipratropium-Albuterol Nebulize 3 ml INHALATION RT-TID 08/09/20 08/09/20 History [Duoneb 0.5 mg-3 mg/3 ml Soln] Naloxone HCl [Narcan] 4 mg NASAL ONCE PRN 08/09/20 08/09/20 History OLANZapine [ZyPREXA] 5 mg PO HS 08/09/20 08/10/20 History Omeprazole 40 mg PO AC-BRKFST 08/09/20 08/10/20 History Pantoprazole Sodium [Protonix] 40 mg PO HS 08/09/20 08/09/20 History buPROPion HCL [Wellbutrin XL] 150 mg PO BID 08/09/20 08/09/20 History ondansetron HCL [Zofran] 8 mg PO Q6H PRN 08/09/20 08/09/20 History Allergies Allergy/AdvReac Type Severity Reaction Status Date / Time gentamicin Allergy Anaphylaxis Verified 08/09/20 08:31 Surgical - Exam Vital Signs Temp Pulse Resp BP Pulse Ox 99.9 F H 108 H 20 123/75 92 L 08/08/20 23:00 08/08/20 23:00 08/08/20 23:00 08/08/20 23:00 08/08/20 23:00 Physical exam: General: Well-developed, well-nourished HEENT: Normocephalic, sclerae nonicteric Abdomen: Nontender, nondistended Extremities: No edema Neuro: Alert and oriented Results - Labs 08/15/20 07:37 08/15/20 07:37 Abnormal Lab Results - Last 24 Hours (Table) 08/14/20 08/15/20 08/15/20 Range/Units 20:51 07:37 07:37 WBC 11.5 H (3.8-10.6) k/uL RDW 16.6 H (11.5-15.5) % Plt Count 531 H (150-450) k/uL Neutrophils # 9.8 H (1.3-7.7) k/uL Lymphocytes # 0.5 L (1.0-4.8) k/uL Glucose 136 H (74-99) mg/dL AST 52 H (14-36) U/L Albumin 3.3 L (3.5-5.0) g/dL Vitamin B12 1088.0 H (200.0-944.0) pg/mL Microbiology - Last 24 Hours (Table) 08/12/20 21:27 Blood Culture - Preliminary Blood No Growth after 48 hours 08/10/20 16:30 Blood Culture - Preliminary Blood No Growth after 96 hours 08/11/20 16:41 Blood Culture Gram Stain - Final Blood Blood Culture - Final Gram Positive Bacilli 08/11/20 21:24 Gram Stain - Final Sputum Sputum Culture - Final Diabetes panel 08/15/20 Range/Units 07:37 Sodium 141 (137-145) mmol/L Potassium 3.5 (3.5-5.1) mmol/L Chloride 105 (98-107) mmol/L Carbon Dioxide 25 (22-30) mmol/L BUN 13 (7-17) mg/dL Creatinine 0.62 (0.52-1.04) mg/dL Glucose 136 H (74-99) mg/dL Calcium 8.7 (8.4-10.2) mg/dL AST 52 H (14-36) U/L ALT 29 (4-34) U/L Alkaline Phosphatase 110 (38-126) U/L Total Protein 6.4 (6.3-8.2) g/dL Albumin 3.3 L (3.5-5.0) g/dL Calcium panel 08/15/20 Range/Units 07:37 Calcium 8.7 (8.4-10.2) mg/dL Albumin 3.3 L (3.5-5.0) g/dL Pituitary panel 08/15/20 Range/Units 07:37 Sodium 141 (137-145) mmol/L Potassium 3.5 (3.5-5.1) mmol/L Chloride 105 (98-107) mmol/L Carbon Dioxide 25 (22-30) mmol/L BUN 13 (7-17) mg/dL Creatinine 0.62 (0.52-1.04) mg/dL Glucose 136 H (74-99) mg/dL Calcium 8.7 (8.4-10.2) mg/dL Adrenal panel 08/15/20 Range/Units 07:37 Sodium 141 (137-145) mmol/L Potassium 3.5 (3.5-5.1) mmol/L Chloride 105 (98-107) mmol/L Carbon Dioxide 25 (22-30) mmol/L BUN 13 (7-17) mg/dL Creatinine 0.62 (0.52-1.04) mg/dL Glucose 136 H (74-99) mg/dL Calcium 8.7 (8.4-10.2) mg/dL Total Bilirubin 0.3 (0.2-1.3) mg/dL AST 52 H (14-36) U/L ALT 29 (4-34) U/L Alkaline Phosphatase 110 (38-126) U/L Total Protein 6.4 (6.3-8.2) g/dL Albumin 3.3 L (3.5-5.0) g/dL Assessment and Plan (1) Dysphagia Narrative/Plan: 60-year-old female with increasing dysphagia over the last several days likely on the basis of radiation esophagitis. Continue conservative measures for now. Upper endoscopy if symptoms do not improve further. Continue clear liquids. Will follow. Current Visit: Yes Status: Acute Code(s): R13.10 - DYSPHAGIA, UNSPECIFIED SNOMED Code(s): 89301154
--- NOTE | 2020-08-15 11:13 | P.PN ---
Subjective Progress Note Date: 08/15/20 Principal diagnosis: Retrosternal burning sensation likely related to joselito esophagitis, continue Diflucan Non-small cell is stage IIIB cancer on chemo and radiation therapy Bacteremia due to strep final ID pending on Zosyn End-stage COPD Chronic hypoxic respiratory failure 08/15/2020, patient seen and examined resting his status gradually improved however continued to have problems with dysphagia difficulty in swallowing food appears to be sticking, surgical services have eval treat the patient 08/14/2020, patient seen and evaluated examined continued to have complaint of dysphagia along with burning sensation while swallowing food including water and solid food, patient likely has joselito esophagitis may very well be invasive, Lyla require long-term therapy would need EGD to confirm it so it can be treated prior to next bout of chemotherapy and radiation therapy respiratory status however stable denies any chest pain remains on supplemental oxygen off and 08/13/2020, patient seen eval examined his to left central congestion and cough, remains on broad-spectrum antibiotics, labs reviewed, patient remains on broad- spectrum antibiotics breathing treatments as well as oral Decadron tolerating well 08/12/2020, patient seen eval examined during the rounds labs reviewed medications reviewed care plan discussed, respiratory status slightly better now nausea improved significantly breathing status improved, but is still congested, remains on broad-spectrum antibiotics, computed tomography scan reviewed finding consistent with central large mass and secondary compresses atelectasis and pneumonia 08/11/2020, patient seen eval examined during the rounds labs reviewed medications reviewed care plan discussed, awake and alert sitting upright on the bed breathing slightly better denies any chest pain, nausea and vomiting improved as well able to swallow well, This is a pleasant 60-year-old female with end-stage COPD due to smoking and nicotine use, patient has been diagnosed as large mediastinal mass currently undergoing chemo and radiation for lung cancer, for last several days she is not feeling well increasing shortness of breath developed burning sensation sensation in the chest came into the hospital for further evaluation, on arrival she was noted to have a white cell count of 11,500, normal renal functions, elevated LDH of 4000, current one is PCR negative, blood cultures positive for Streptococcus species, currently patient is on Zithromax along with Zosyn Objective - Vital Signs Vital signs: Vital Signs Temp 97.5 F L 08/15/20 08:00 Pulse 69 08/15/20 08:00 Resp 16 08/15/20 08:00 BP 138/82 08/15/20 08:00 Pulse Ox 96 08/15/20 08:00 Intake & Output 08/14/20 08/15/20 08/15/20 18:59 06:59 18:59 Intake Total 1000 1050 Balance 1000 1050 Intake: Intake, IV Titration 1000 1050 Amount Piperacillin-Tazobactam 3 100 .375 gm In Sodium Chloride 0.9% 100 ml @ 25 mls/hr IVPB Q8H EDEN Rx#: [id number] Sodium Chloride 0.9% 1, 700 000 ml @ 100 mls/hr IV . Q10H EDEN Rx#:[id number] Vancomycin 1,500 mg In 1000 250 Sodium Chloride 0.9% 250 ml @ 125 mls/hr IVPB Q12H EDEN Rx#:[id number] Other: Voiding Method Toilet Toilet # Voids 3 # Bowel Movements 1 - Exam - Constitutional General appearance: average body habitus, cooperative, disheveled - EENT Eyes: PERRLA Ears: bilateral: normal - Neck Neck: normal ROM Carotids: bilateral: upstroke normal - Respiratory Respiratory: bilateral: diminished - Cardiovascular Rhythm: regular Heart sounds: normal: S1, S2 - Gastrointestinal General gastrointestinal: distended - Neurologic Neurologic: CNII-XII intact - Musculoskeletal Musculoskeletal: gait normal, generalized weakness, strength equal bilaterally - Psychiatric Psychiatric: A&O x's 3, appropriate affect, intact judgment & insight - Labs CBC & Chem 7: 08/15/20 07:37 08/15/20 07:37 Labs: Abnormal Lab Results - Last 24 Hours (Table) 08/14/20 08/15/20 08/15/20 Range/Units 20:51 07:37 07:37 WBC 11.5 H (3.8-10.6) k/uL RDW 16.6 H (11.5-15.5) % Plt Count 531 H (150-450) k/uL Neutrophils # 9.8 H (1.3-7.7) k/uL Lymphocytes # 0.5 L (1.0-4.8) k/uL Glucose 136 H (74-99) mg/dL AST 52 H (14-36) U/L Albumin 3.3 L (3.5-5.0) g/dL Vitamin B12 1088.0 H (200.0-944.0) pg/mL Microbiology - Last 24 Hours (Table) 08/12/20 21:27 Blood Culture - Preliminary Blood No Growth after 48 hours 08/10/20 16:30 Blood Culture - Preliminary Blood No Growth after 96 hours 08/11/20 16:41 Blood Culture Gram Stain - Final Blood Blood Culture - Final Gram Positive Bacilli 08/11/20 21:24 Gram Stain - Final Sputum Sputum Culture - Final Assessment and Plan Assessment: Postobstructive pneumonia Acute on chronic hypoxic respiratory failure Retrosternal burning sensation likely related to joselito/radiation esophagitis, continue Diflucan Non-small cell is stage IIIB cancer on chemo and radiation therapy Alphahemolytic streptococcus bacteremia on Zosyn however repeat cultures are negative End-stage COPD Plan: Consider EGD and biopsy of the esophagus, general surgery has been consulted Continue to gently hydrate Continue Diflucan Continue broad-spectrum antibiotics Bronchodilators DVT prophylaxis Time with Patient: Greater than 30
[2020-08-15 14:12] VITALS: BP 156/90; PULSE 65; TEMP 97.6
[2020-08-15] MEDS ORDERED: AMOXIC-POT CLAV 875-125MG 1 EACH TAB PO SCH (21:00)
[2020-08-18 08:48] LABS: Methylmalonic Acid 0.17 umol/L (<0.40)
== END 2020-08-15 17:11 | disposition home or self-care (01) | DRG 193 ==
LOC: EC 22:31 → 5NMEDONC 08-09 01:41 → 4SSUR 08-09 15:02
PROVIDERS: ADMIT Family Medicine; ATTEND Family Medicine
DX: J18.9 Pneumonia, unspecified organism (principal); J96.21 Acute and chronic respiratory failure with hypoxia; B37.81 Candidal esophagitis; C34.90 Malignant neoplasm of unspecified part of unspecified bronchus or lung; E87.1 Hypo-osmolality and hyponatremia; J44.0 Chronic obstructive pulmonary disease with (acute) lower respiratory infection; J44.1 Chronic obstructive pulmonary disease with (acute) exacerbation; R78.81 Bacteremia; B95.2 Enterococcus as the cause of diseases classified elsewhere; E66.9 Obesity, unspecified; Z68.37 Body mass index [BMI] 37.0-37.9, adult; Z87.891 Personal history of nicotine dependence; G43.909 Migraine, unspecified, not intractable, without status migrainosus; J20.9 Acute bronchitis, unspecified; K74.60 Unspecified cirrhosis of liver; T66.XXXA Radiation sickness, unspecified, initial encounter; R13.10 Dysphagia, unspecified; R11.2 Nausea with vomiting, unspecified; Y84.2 Radiological procedure and radiotherapy as the cause of abnormal reaction of the patient, or of later complication, without mention of misadventure at the time of the procedure; M19.90 Unspecified osteoarthritis, unspecified site; Z20.822 Contact with and (suspected) exposure to COVID-19; Z79.899 Other long term (current) drug therapy; Z80.9 Family history of malignant neoplasm, unspecified; Z92.21 Personal history of antineoplastic chemotherapy; Z85.118 Personal history of other malignant neoplasm of bronchus and lung; Z86.73 Personal history of transient ischemic attack (TIA), and cerebral infarction without residual deficits; Z90.710 Acquired absence of both cervix and uterus; Z90.81 Acquired absence of spleen; Z92.3 Personal history of irradiation; Z91.81 History of falling; Z98.890 Other specified postprocedural states; Z88.0 Allergy status to penicillin
CPT/HCPCS: 36415; 70553; 71045; 71250; 80048; 80053; 80202; 82565; 82607; 82746; 83605; 83615; 83735; 83921; 84630; 85025; 85610; 85730; 86140; 87040; 87070; 87205; 87635; 93005; 94640; 96361; 96365; 96375; 99291

== ENCOUNTER 2020-09-01 09:26 | Inpatient (IN) | payer MEDICARE, OTHER ==
[2020-09-01] MEDS: SODIUM CHLORIDE 0.9% 1,000 ML IV SCH (13:30)
[2020-09-01] MEDS ORDERED: ONDANSETRON 4 MG TAB PO PRN (13:50)
[2020-09-01 14:19] LABS: Anisocytosis Slight; Basophils % (A) 1 %; Eosinophils # (A) 0.4 k/uL (0-0.7); Eosinophils % (A) 17 %; HCT 39.7 % (34.0-46.0); HGB 12.5 gm/dL (11.4-16.0); Hypochromasia Moderate; Lymphocytes # (A) 0.7 k/uL (1.0-4.8); Lymphocytes % (A) 27 %; MCH 27.5 pg (25.0-35.0); MCHC 31.5 g/dL (31.0-37.0); MCV 87.1 fL (80.0-100.0); Mean Platelet Volume 7.7; Monocytes # (A) 0.1 k/uL (0-1.0); Monocytes % (A) 6 %; Neutrophils % (A) 42 %; Platelet Count 218 k/uL (150-450); RBC 4.55 m/uL (3.80-5.40); RDW 17.4 % (11.5-15.5); WBC 2.4 k/uL (3.8-10.6)
[2020-09-01] MEDS: HYDROcodone/APAP 10-325MG 1 EACH TAB PO PRN (14:45)
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
--- NOTE | 2020-09-01 15:57 | XR ---
EXAMINATION TYPE: XR chest 2V DATE OF EXAM: 09/01/2020 COMPARISON: 08/10/2020 HISTORY: Shortness of breath TECHNIQUE: Frontal and lateral views of the chest are obtained. FINDINGS: Scattered senescent parenchymal changes noted. Hyperinflation compatible with COPD. No evidence for infiltrate. No evidence for atelectasis. Heart size is stable. Mediastinal structures are stable and grossly unremarkable. No evidence for hilar prominence. Degenerative changes dorsal spine. IMPRESSION: 1. No evidence for acute pulmonary disease.
[2020-09-01] MEDS: MAG HYDROX/AL HYDROX/SIMETH 30 ML, LIDOCAINE VISCOUS 30 ML, diphenhydrAMINE ELIXIR 75 M... PO SCH ×8 (17:17→20:59)
[2020-09-01] MEDS: SUCRALFATE 1 GM TAB PO SCH ×2 (17:17→20:58)
[2020-09-01] MEDS ORDERED: PANTOPRAZOLE 40 MG TABLET PO SCH (17:30)
[2020-09-01 17:31] LABS: Basophils # (M) 0.02 k/uL (0-0.2); Eosinophils # (M) 0.53 k/uL (0-0.7); Lymphocytes # (M) 0.55 k/uL (1.0-4.8); Monocytes # (M) 0.22 k/uL (0-1.0); Neutrophils # (M) 1.13 k/uL (1.3-7.7); Neutrophils % (M) 47 %; Nucleated Red Blood Cells 0 /100 WBC (0-0); Total Cells Counted 200
[2020-09-01 17:34] LABS: Poikilocytosis (M) Present
[2020-09-01] MEDS: IPRATROPIUM-ALBUTEROL 3 ML NEB INHALATION SCH (19:28)
[2020-09-01] MEDS: HYDROmorphone 0.5 MG/0.5 ML SYRINGE IVP PRN (19:55)
[2020-09-01 20:24] LABS: Appearance,Urine Clear (Clear); Bilirubin,Urine Negative (Negative); Blood,Urine Negative (Negative); Color,Urine Yellow; Glucose,Urine (UA) Negative (Negative); Ketones,Urine Negative (Negative); Leukocyte Esterase,Urine Negative (Negative); Nitrite,Urine Negative (Negative); PH, Urine 6.5 (5.0-8.0); Protein,Urine Trace (Negative); Specific Gravity,Urine 1.016 (1.001-1.035); Urobilinogen,Urine <2.0 mg/dL (<2.0)
[2020-09-01] MEDS: ALPRAZolam 0.5 MG TAB PO SCH (20:58)
[2020-09-01] MEDS: PANTOPRAZOLE 40 MG/10 ML VIAL IVP SCH (20:59)
[2020-09-01] MEDS: OLANZapine 5 MG TAB PO SCH (20:59)
[2020-09-01] MEDS: buPROPion XL 150 MG TAB.ER.24H PO SCH (20:59)
[2020-09-01 21:29] LABS: African American GFR (CKD) 113.2 (60.0-200.0); Albumin 3.5 g/dL (3.80-4.90); Albumin/Globulin Ratio 1.46 (1.60-3.17); Anion Gap 10.3 mmol/L (4.00-12.00); BUN/Creat Ratio 16.67 Ratio (12.00-20.00); Calcium 8.4 mg/dL (8.7-10.3); Carbon Dioxide 24.7 mmol/L (21.6-31.8); Globulin 2.4 g/dL (1.6-3.3); Non-African American GFR(CKD) 97.7 (60.0-200.0); Potassium 2.6 mmol/L (3.5-5.5); Total Bilirubin 0.5 mg/dL (0.3-1.2); Total Protein 5.9 g/dL (6.2-8.2)
[2020-09-01] MEDS ORDERED: Potassium Replacement Protocol 1 EACH MISC MISCELLANE PRN (22:14)
[2020-09-01] MEDS: POTASSIUM CHLORIDE 20 MEQ in WATER FOR INJECTION 1 100ML.BAG IVPB SCH (22:38)
[2020-09-01] MEDS ORDERED: POTASSIUM CHLORIDE 10 MEQ in WATER FOR INJECTION 1 100ML.BAG IVPB SCH (23:00)
[2020-09-02] MEDS ORDERED: POTASSIUM CHLORIDE ER 20 MEQ TAB.ER PO SCH
[2020-09-02] MEDS: HYDROmorphone 0.5 MG/0.5 ML SYRINGE IVP PRN ×5 (00:45→22:32)
[2020-09-02] MEDS: POTASSIUM CHLORIDE 20 MEQ in WATER FOR INJECTION 1 100ML.BAG IVPB SCH ×2 (00:47→03:16)
[2020-09-02] MEDS: AZITHROMYCIN 500 MG in SODIUM CHLORIDE 0.9% 250 ML IVPB SCH (01:26)
[2020-09-02] MEDS: SODIUM CHLORIDE 0.9% 1,000 ML IV SCH ×2 (03:15→15:41)
--- NOTE | 2020-09-02 06:34 | HP ---
HISTORY AND PHYSICAL This is a 60-year-old white female admitted with severe dehydration, inability to swallow liquids or food due to esophageal stenosis versus candidiasis secondary to radiation and chemotherapy. Last chemotherapy was a week ago. She has got fever and chills. She has had leukopenia also at this time. She has non-small cell cancer of the lung for which she had radiation and chemo that just finished a week ago. As mentioned, she is unable to swallow solids or liquids. REVIEW OF SYSTEMS: Fourteen-point review of systems negative except for as mentioned in HPI. HOME MEDICATIONS: DuoNeb q.i.d., Xanax 0.5 q.h.s., Wellbutrin XL 150 b.i.d., folic acid 1 mg daily, [place] 10 q.i.d., Dilaudid 0.5 q.4 hours p.r.n., Zyprexa 5 mg at night, Zofran 8 mg q.6 hours p.r.n., Protonix 40 mg IV piggyback b.i.d., potassium chloride for severe hypokalemia has been started. Carafate 1 gram a.c. and h.s. PHYSICAL EXAMINATION: Temperature 98.2, pulse 80s to 90s, respiratory 16 to 18, blood pressure 101 to 131 over 60s to 80s, O2 92% on room air. Cardiovascular S1, S2. Lungs with decreased breath sounds x4. GI soft, normal bowel sounds. No mass. Extremities with 2+ to 3+ edema. Neurologic cranial nerves intact. ASSESSMENT: Dehydration. Possible esophageal stricture or radiation swelling. Unable to swallow. Possible barium swallow in the morning to assess her eating. She will be on regular food as tolerated until admitted and then have clear liquids and barium swallow in the morning. Wait for GI consultation for possibly EGD versus barium swallow. Advance diet and see if she could tolerate food. Rule out sepsis as she has fever, chills, and rigors and she does not feel good. Prognosis guarded. MMODL / IJN: [id number] /
[2020-09-02 06:53] LABS: Anisocytosis Slight; Basophils % (A) 1 %; Eosinophils # (A) 0.3 k/uL (0-0.7); Eosinophils % (A) 5 %; HCT 36.9 % (34.0-46.0); HGB 11.8 gm/dL (11.4-16.0); Hypochromasia Moderate; Lymphocytes # (A) 0.5 k/uL (1.0-4.8); Lymphocytes % (A) 9 %; MCHC 32.1 g/dL (31.0-37.0); MCV 87.4 fL (80.0-100.0); Monocytes # (A) 0.2 k/uL (0-1.0); Monocytes % (A) 4 %; Neutrophils # (A) 4.7 k/uL (1.3-7.7); Neutrophils % (A) 79 %; Platelet Count 141 k/uL (150-450); RBC 4.22 m/uL (3.80-5.40); RDW 17.7 % (11.5-15.5)
[2020-09-02] MEDS: IPRATROPIUM-ALBUTEROL 3 ML NEB INHALATION SCH ×3 (07:34→20:48)
[2020-09-02] MEDS: SUCRALFATE 1 GM TAB PO SCH ×4 (07:50→22:32)
[2020-09-02] MEDS: MAG HYDROX/AL HYDROX/SIMETH 30 ML, LIDOCAINE VISCOUS 30 ML, diphenhydrAMINE ELIXIR 75 M... PO SCH ×12 (09:06→20:17)
[2020-09-02] MEDS: PANTOPRAZOLE 40 MG/10 ML VIAL IVP SCH ×2 (09:06→20:17)
[2020-09-02] MEDS: FOLIC ACID 1 MG TAB PO SCH (09:06)
[2020-09-02] MEDS: buPROPion XL 150 MG TAB.ER.24H PO SCH ×2 (09:07→20:17)
--- NOTE | 2020-09-02 14:11 | P.PN ---
Subjective Progress Note Date: 09/02/20 Principal diagnosis: Esophagitis, dysphasia This is a 60-year-old female who presented to the emergency department for recurrent dysphagia and pain with swallowing. He was recently diagnosed with non-small cell lung cancer in May of this year. She has undergone radiation and was recently admitted for radiation esophagitis. Symptoms did not improve so the patient returned. Today she was seen and states she is still unable to swallow without severe pain in her epigastric region. She denies any nausea or vomiting. States it is even difficult to drink her water. Objective - Vital Signs Vital signs: Vital Signs Temp 97.9 F 09/02/20 06:36 Pulse 84 09/02/20 06:36 Resp 18 09/02/20 06:36 BP 93/60 09/02/20 06:36 Pulse Ox 93 L 09/02/20 06:36 Intake & Output 09/01/20 09/02/20 09/02/20 18:59 06:59 18:59 Intake Total 400 Output Total 600 Balance -200 Weight 79.5 kg Intake: Oral 400 Output: Urine 600 Other: Voiding Method Toilet Toilet Toilet # Voids 1 2 - Exam General appearance: The patient is alert, oriented, appears in no acute distress. HET: Head is normocephalic and atraumatic. Conjunctiva pink. Sclera anicteric. Neck: Supple without lymphadenopathy. Abdomen: Soft, nontender, nondistended with bowel sounds. No guarding or rigidity. Extremities: Normal skin color and turgor. No pedal edema Skin: No rashes, no jaundice Neurological: No focal deficits. Alert and oriented 3. - Labs CBC & Chem 7: 09/02/20 06:28 09/01/20 13:47 Labs: Abnormal Lab Results - Last 24 Hours (Table) 09/01/20 09/01/20 09/01/20 Range/Units 13:47 13:51 20:12 WBC 2.4 L (3.8-10.6) k/uL RDW 17.4 H (11.5-15.5) % Plt Count (150-450) k/uL Neutrophils # 1.0 L (1.3-7.7) k/uL Neutrophils # (Manual) 1.13 L (1.3-7.7) k/uL Lymphocytes # 0.7 L (1.0-4.8) k/uL Lymphocytes # (Manual) 0.55 L (1.0-4.8) k/uL Potassium 2.6 L* (3.5-5.5) mmol/L Chloride 110 H (96-109) mmol/L Glucose 123 H (70-110) mg/dL Calcium 8.4 L (8.7-10.3) mg/dL AST 48 H (13-35) U/L Total Protein 5.9 L (6.2-8.2) g/dL Albumin 3.50 L (3.80-4.90) g/dL Albumin/Globulin Ratio 1.46 L (1.60-3.17) g/dL Urine Protein Trace H (Negative) 09/02/20 Range/Units 06:28 WBC (3.8-10.6) k/uL RDW 17.7 H (11.5-15.5) % Plt Count 141 L (150-450) k/uL Neutrophils # (1.3-7.7) k/uL Neutrophils # (Manual) (1.3-7.7) k/uL Lymphocytes # 0.5 L (1.0-4.8) k/uL Lymphocytes # (Manual) (1.0-4.8) k/uL Potassium (3.5-5.5) mmol/L Chloride (96-109) mmol/L Glucose (70-110) mg/dL Calcium (8.7-10.3) mg/dL AST (13-35) U/L Total Protein (6.2-8.2) g/dL Albumin (3.80-4.90) g/dL Albumin/Globulin Ratio (1.60-3.17) g/dL Urine Protein (Negative) Assessment and Plan (1) Dysphagia Narrative/Plan: 60-year-old female who was a direct admit from her PCP for difficulty of swallowing and weight loss. Patient was recently diagnosed with non-small cell lung cancer in May of this year, she has underwent 30 radiation treatments and follows with . She was recently discharged approximately 2 weeks ago with complaints of dysphasia, at that time she was seen by general surgery and conservative measures were used. She states she continues to have difficulty swallowing and reports painful swallowing in her chest, unable to even drink a glass of water. She had no previous EGD. She was treated with proton next, cool solution and Valtrex for possible viral component. Likely dealing with radiation esophagitis, will continue Protonix 40 mg IV twice a day and it Kools solution. If no improvement in 2-3 days will consider upper endoscopy. Current Visit: No Status: Acute Code(s): R13.10 - DYSPHAGIA, UNSPECIFIED SNOMED Code(s): 51273841 (2) Radiation esophagitis Current Visit: No Status: Acute Priority: High Code(s): K20.80 - OTHER ESOPHAGITIS WITHOUT BLEEDING; T66.XXXA - RADIATION SICKNESS, UNSPECIFIED, INITIAL ENCOUNTER SNOMED Code(s): 881670397 (3) Primary lung adenocarcinoma Current Visit: No Status: Acute Priority: High Code(s): C34.90 - MALIGNANT NEOPLASM OF UNSP PART OF UNSP BRONCHUS OR LUNG SNOMED Code(s): 214761967 Plan: 1. Continue symptomatic and supportive care 2. Full liquid, consistent carbohydrate diet, nothing by mouth after midnight 3. Protonix 40 mg IV twice a day 4. Kools solution 5. Continue Carafate 6. Symptoms are not improving with medication management, will proceed with upper endoscopy tomorrow to rule out infectious etiology. The procedure was discussed with the patient in detail including risks and benefits, patient is willing to proceed. Thank you for this consultation, we will continue to follow Dr. Moise Jarrett I agree with the dictator's note, documented as a scribe by Aida Alfredo.
[2020-09-02 14:12] VITALS: BMI 33.1
[2020-09-02] MEDS ORDERED: LIDOCAINE 1% (10MG/ML) FOR IV START INTRADERMA PRN (16:18)
[2020-09-02] MEDS: LACTATED RINGERS 1,000 ML IV SCH (18:46)
[2020-09-02] MEDS: ALPRAZolam 0.5 MG TAB PO SCH (20:16)
[2020-09-02] MEDS: OLANZapine 5 MG TAB PO SCH (20:17)
[2020-09-03] MEDS: AZITHROMYCIN 500 MG in SODIUM CHLORIDE 0.9% 250 ML IVPB SCH (01:32)
[2020-09-03] MEDS: HYDROmorphone 0.5 MG/0.5 ML SYRINGE IVP PRN ×5 (03:18→21:15)
[2020-09-03] MEDS: SODIUM CHLORIDE 0.9% 1,000 ML IV SCH ×2 (07:20→16:20)
[2020-09-03] MEDS: SUCRALFATE 1 GM TAB PO SCH ×4 (07:21→21:15)
[2020-09-03] MEDS: PANTOPRAZOLE 40 MG/10 ML VIAL IVP SCH ×2 (07:21→21:16)
--- NOTE | 2020-09-03 07:31 | PN ---
PROGRESS NOTE A 60-year-old white female who remains on azithromycin and Rocephin for possible sepsis. Dr. Eli is going to be consulted to rule out sepsis. She is supposed to have an EGD tomorrow for esophageal stenosis. She is up ambulating. She feels a little bit better today. UA is negative. Coronavirus is negative. White count is better up to 6, hemoglobin 11.8. ASSESSMENT: 1. Adenocarcinoma of the lung status post chemo and radiation treatment. 2. Esophageal stenosis. EGD tomorrow for possible esophageal dilation. Prognosis is guarded. Follow up in next 24-48 hours for possible discharge after EGD if we can increase her diet and she eats better. MMODL / IJN: [id number] /
[2020-09-03] MEDS: IPRATROPIUM-ALBUTEROL 3 ML NEB INHALATION SCH ×3 (07:51→20:41)
[2020-09-03] MEDS: MAG HYDROX/AL HYDROX/SIMETH 30 ML, LIDOCAINE VISCOUS 30 ML, diphenhydrAMINE ELIXIR 75 M... PO SCH ×12 (08:23→23:52)
[2020-09-03] MEDS: buPROPion XL 150 MG TAB.ER.24H PO SCH ×2 (08:23→21:15)
[2020-09-03] MEDS: FOLIC ACID 1 MG TAB PO SCH (08:23)
[2020-09-03 09:49] LABS: Basophils # (A) 0.02 X 10*3/uL (0.00-0.10); Basophils % (A) 0.4 %; Eosinophils # (A) 0.67 X 10*3/uL (0.04-0.35); Eosinophils % (A) 14.3 %; HCT 32.2 % (37.2-46.3); Lymphocytes # (A) 0.61 X 10*3/uL (0.90-5.00); MCH 27.5 pg (27.0-32.0); MCHC 31.1 g/dL (32.0-37.0); MCV 88.7 fL (80.0-97.0); Mean Platelet Volume 11.9 fL (9.5-12.2); Monocytes # (A) 0.69 X 10*3/uL (0.20-1.00); Monocytes % (A) 14.7 %; Neutrophils # (A) 2.62 X 10*3/uL (1.80-7.70); Neutrophils % (A) 55.7 %; Platelet Count 161 X 10*3/uL (140-440); RBC 3.63 X 10*6/uL (4.10-5.20); RDW 19.1 % (11.5-14.5)
[2020-09-03] MEDS ORDERED: LIDOCAINE 1% INJ 10MG/ML (20 ML MDV) ONE (11:32)
[2020-09-03] MEDS ORDERED: PROPOFOL 10 MG/ML 20 ML VIAL IV ONE (11:32)
[2020-09-03] MEDS ORDERED: IV FLUID CONTINUATION 1,000 ML IV ONE ×2 (11:34)
--- NOTE | 2020-09-03 11:52 | P.PCN ---
Date of Procedure: 09/03/20 Procedure(s) Performed: BRIEF HISTORY: Patient is a 60-year-old, pleasant,white female scheduled for an upper endoscopy as a part of evaluation of severe dysphagia and odynophagia for the last few weeks duration. Patient just finished chemo and radiation for lung cancer about a week ago. She is having severe dysphagia and odynophagia and lately has not been able to eat have any liquids or solid food. She was taken presently receiving either antiviral medications an outpatient basis with no help. She is hence scheduled for an upper endoscopy to evaluate further. PROCEDURE PERFORMED: Esophagogastroduodenoscopy with biopsy . PREOPERATIVE DIAGNOSIS: DYSPHAGIA/ODYNOPHAGIA OF FEW WEEKS DURATION IV sedation per anesthesia. PROCEDURE: After informed consent was obtained, the patient was brought into the endoscopy unit. IV sedation was administered by Anesthesia under continuous monitoring. Initially the Olympus GIF-140 video endoscope was inserted into the mouth. Esophagus intubated without any difficulty. It was gradually advanced into the stomach and duodenum and carefully examined. The bulb and the second part of the duodenum appeared normal. The scope at this time was withdrawn to the stomach, adequately insufflated with air, and upon careful examination, mucosa of the antrum had minimal gastritis. The , body, cardia and the fundus appeared normal. The scope was then withdrawn into the esophagus. The GE junction was located at 40 cm from the incisors. there was severe esophagitis involving the mid esophagus extending from 25-30 cm from the incisors with mucosal erythema friability and some exudates, status post biopsies to rule out infectious esophagitis versus radiation esophagitis. The Rest of the esophagus appeared normal and the patient tolerated the procedure well. IMPRESSION: 1. Severe esophagitis with mucosal erythema friability and exudates noted in the mid esophagus extending from 25-30 cm from the incisors status post biopsies to evaluate for radiation esophagitis versus infectious esophagitis. 2. Minimal antral gastritis RECOMMENDATIONS: The findings of this examination were discussed with the patient as well as her family. She was advised to follow with the biopsy results. In the meantime she will continue PPI and give a trial of fluconazole 100 mg daily for 7 days for possible Mini esophagitis.
[2020-09-03 12:55] LABS: African American GFR (CKD) 113.2 (60.0-200.0); Albumin/Globulin Ratio 1.43 (1.60-3.17); Anion Gap 8.3 mmol/L (4.00-12.00); BUN/Creat Ratio 21.67 Ratio (12.00-20.00); Calcium 7.8 mg/dL (8.7-10.3); Carbon Dioxide 23.7 mmol/L (21.6-31.8); Globulin 2.1 g/dL (1.6-3.3); Non-African American GFR(CKD) 97.7 (60.0-200.0); Potassium 2.9 mmol/L (3.5-5.5); Total Bilirubin 0.1 mg/dL (0.3-1.2); Total Protein 5.1 g/dL (6.2-8.2)
[2020-09-03] MEDS ORDERED: Potassium Replacement Protocol 1 EACH MISC MISCELLANE PRN ×2 (15:42→21:22)
[2020-09-03] MEDS: LACTATED RINGERS 1,000 ML IV SCH (16:16)
[2020-09-03] MEDS: POTASSIUM CHLORIDE ER 20 MEQ TAB.ER PO SCH ×5 (16:19→23:52)
[2020-09-03] MEDS: ALPRAZolam 0.5 MG TAB PO SCH (21:15)
[2020-09-03] MEDS: OLANZapine 5 MG TAB PO SCH (21:16)
[2020-09-04] MEDS: AZITHROMYCIN 500 MG in SODIUM CHLORIDE 0.9% 250 ML IVPB SCH (01:08)
[2020-09-04] MEDS: IPRATROPIUM-ALBUTEROL 3 ML NEB INHALATION SCH ×3 (07:35→19:13)
[2020-09-04] MEDS: SUCRALFATE 1 GM TAB PO SCH ×4 (08:10→20:44)
[2020-09-04] MEDS: buPROPion XL 150 MG TAB.ER.24H PO SCH ×2 (08:10→20:44)
[2020-09-04] MEDS: PANTOPRAZOLE 40 MG/10 ML VIAL IVP SCH (08:10)
[2020-09-04] MEDS: FOLIC ACID 1 MG TAB PO SCH (08:10)
[2020-09-04] MEDS: SODIUM CHLORIDE 0.9% 1,000 ML IV SCH ×2 (08:11→20:45)
[2020-09-04] MEDS: HYDROmorphone 0.5 MG/0.5 ML SYRINGE IVP PRN ×4 (08:11→20:47)
[2020-09-04] MEDS: MAG HYDROX/AL HYDROX/SIMETH 30 ML, LIDOCAINE VISCOUS 30 ML, diphenhydrAMINE ELIXIR 75 M... PO SCH ×12 (08:11→23:51)
[2020-09-04] MEDS ORDERED: Potassium Replacement Protocol 1 EACH MISC MISCELLANE PRN (10:08)
[2020-09-04] MEDS: POTASSIUM CHLORIDE ER 20 MEQ TAB.ER PO SCH ×2 (10:19→11:22)
[2020-09-04] MEDS: FLUCONAZOLE 100 MG TAB PO SCH (12:38)
--- NOTE | 2020-09-04 12:57 | PN ---
PROGRESS NOTE DATE OF SERVICE: 09/03/2020 INTERVAL HISTORY: A 60-year-old white female who has had poor oral intake. She does not feel good. She has severe esophagitis seen on the EGD. She is going to be given Diflucan, maybe some or Cool solution to try to increase appetite. If she is able to, increase PPI to twice a day and possibly go home tomorrow. Cardiovascular S1-S2. Lungs clear. GI is soft. Hematology negative Homans. ASSESSMENT: 1. Severe esophagitis, status post radiation and chemo for adenocarcinoma of the lung. 2. Chronic obstructive pulmonary disease. 3. Obesity. 4. Degenerative disk disease. 5. Mood disorder. 6. History nicotine addiction. Prognosis is guarded. As mentioned, order some antifungal medicine and try to improve her diet prior to going home. EGD showed severe esophagitis, not sure if it is infectious versus radiation causing it. Please see further orders. MMODL / IJN: [id number] /
[2020-09-04] MEDS: PANTOPRAZOLE 40 MG TABLET PO SCH (16:49)
[2020-09-04] MEDS: LACTATED RINGERS 1,000 ML IV SCH (16:52)
--- NOTE | 2020-09-04 20:41 | P.PN ---
Subjective Progress Note Date: 09/04/20 Principal diagnosis: Esophagitis, gastritis Patient seen sitting in bedside tolerating diet. Still having some chest pain associated with esophagitis. No acute complaints. Objective - Vital Signs Vital signs: Vital Signs Temp 98.4 F 09/04/20 07:00 Pulse 82 09/04/20 07:00 Resp 18 09/04/20 07:00 BP 150/92 09/04/20 07:00 Pulse Ox 91 L 09/04/20 07:00 Intake & Output 09/03/20 09/04/20 09/04/20 18:59 06:59 18:59 Intake Total 50 Balance 50 Intake: IV 50 Other: # Voids 3 1 # Bowel Movements 0 - Exam On physical examination, patient appears comfortable in no apparent distress. HEAD: Normocephalic, atraumatic. EYES: No scleral icterus. No conjunctival injection. MOUTH: No lesions, tongue midline. NECK: Trachea midline, no gross abnormalities. ABDOMEN: Soft, obese. Bowel sounds are positive. No organomegaly. No guarding or rigidity. EXTREMITIES: No pedal edema. SKIN: No rashes, no jaundice. NEUROLOGIC: Alert and oriented x3. No focal deficits. - Labs CBC & Chem 7: 09/03/20 04:44 09/04/20 12:32 Labs: Abnormal Lab Results - Last 24 Hours (Table) 09/03/20 Range/Units 19:41 Potassium 3.4 L (3.5-5.1) mmol/L Microbiology - Last 24 Hours (Table) 09/02/20 00:30 Blood Culture - Preliminary Blood No Growth after 48 hours Assessment and Plan (1) Esophagitis Narrative/Plan: 60-year-old female who presented with complaints of dysphagia and chest pain and her EGD yesterday with findings of severe esophagitis and gastritis. Unclear if this is related to radiation, Mini infection or other etiology. Biopsies are pending. Current Visit: Yes Status: Acute Code(s): K20.90 - ESOPHAGITIS, UNSPECIFIED WITHOUT BLEEDING SNOMED Code(s): 59247936 (2) Gastritis Current Visit: Yes Status: Acute Code(s): K29.70 - GASTRITIS, UNSPECIFIED, WITHOUT BLEEDING SNOMED Code(s): 8319529 (3) Dysphagia Current Visit: Yes Status: Acute Code(s): R13.10 - DYSPHAGIA, UNSPECIFIED SNOMED Code(s): 51624643 Plan: Supportive care Okay for soft diet as tolerated Continue Protonix twice a day Continue Carafate 4 times a day before meals at bedtime Continue empiric treatment for possible esophageal candidiasis Follow-up in the GI clinic with Dr. Jarrett in 2-3 weeks for results of biopsies No further endoscopic evaluation planned Okay for discharge on otherwise medically stable The gastroenterology service will sign off, there being no gastroenterology [place] this weekend and if further evaluation by GI is required the patient will need to be transferred to outside hospital as per discretion by the primary team
[2020-09-04] MEDS: OLANZapine 5 MG TAB PO SCH (20:44)
[2020-09-04] MEDS: ALPRAZolam 0.5 MG TAB PO SCH (20:44)
[2020-09-05] MEDS: HYDROmorphone 0.5 MG/0.5 ML SYRINGE IVP PRN ×2 (03:28→08:23)
[2020-09-05 07:57] VITALS: BP 131/83; PULSE 69; RESP 18; TEMP 98.1
[2020-09-05] MEDS: IPRATROPIUM-ALBUTEROL 3 ML NEB INHALATION SCH ×2 (07:59→11:09)
[2020-09-05] MEDS: PANTOPRAZOLE 40 MG TABLET PO SCH (08:18)
[2020-09-05] MEDS: SUCRALFATE 1 GM TAB PO SCH ×2 (08:19→12:07)
[2020-09-05] MEDS: FOLIC ACID 1 MG TAB PO SCH (08:19)
[2020-09-05] MEDS: buPROPion XL 150 MG TAB.ER.24H PO SCH (08:19)
[2020-09-05] MEDS: FLUCONAZOLE 100 MG TAB PO SCH (08:19)
[2020-09-05] MEDS: MAG HYDROX/AL HYDROX/SIMETH 30 ML, LIDOCAINE VISCOUS 30 ML, diphenhydrAMINE ELIXIR 75 M... PO SCH ×4 (09:16)
[2020-09-05] MEDS: SODIUM CHLORIDE 0.9% 1,000 ML IV SCH (09:46)
[2020-09-05] MEDS: HYDROcodone/APAP 10-325MG 1 EACH TAB PO PRN (12:18)
== END 2020-09-05 12:45 | disposition home or self-care (01) | DRG 392 ==
LOC: 6NMEDSUR 11:14 → OBSVTOIN 09-02 15:23
PROVIDERS: ADMIT Family Medicine; ATTEND Family Medicine
PROC: 0DB48ZX Excision of Esophagogastric Junction, Via Natural or Artificial Opening Endoscopic, Diagnostic (ICD-10-PCS; principal; 2020-09-03 12:00)
DX: K20.80 Other esophagitis without bleeding (principal); C34.90 Malignant neoplasm of unspecified part of unspecified bronchus or lung; B37.81 Candidal esophagitis; R13.10 Dysphagia, unspecified; E86.0 Dehydration; M54.9 Dorsalgia, unspecified; G89.29 Other chronic pain; D72.819 Decreased white blood cell count, unspecified; K29.70 Gastritis, unspecified, without bleeding; E66.9 Obesity, unspecified; F32.9 Major depressive disorder, single episode, unspecified; E87.6 Hypokalemia; F39 Unspecified mood [affective] disorder; H91.90 Unspecified hearing loss, unspecified ear; J44.9 Chronic obstructive pulmonary disease, unspecified; Y84.2 Radiological procedure and radiotherapy as the cause of abnormal reaction of the patient, or of later complication, without mention of misadventure at the time of the procedure; Z92.3 Personal history of irradiation; Z92.21 Personal history of antineoplastic chemotherapy; Z68.33 Body mass index [BMI] 33.0-33.9, adult; Z79.899 Other long term (current) drug therapy; Z86.73 Personal history of transient ischemic attack (TIA), and cerebral infarction without residual deficits; Z90.710 Acquired absence of both cervix and uterus; Z90.81 Acquired absence of spleen; Z87.891 Personal history of nicotine dependence
CPT/HCPCS: 43239; 71046; 80053; 81003; 83605; 84132; 85025; 87040; 87324; 87635; 88305; 88312; 94640

== ENCOUNTER 2020-09-07 15:57 | Observation (INO) | payer MEDICARE, OTHER ==
[2020-09-07] MEDS ORDERED: PANTOPRAZOLE 40 MG/10 ML VIAL IVP STA (16:20)
[2020-09-07] MEDS ORDERED: SODIUM CHLORIDE 0.9% 500 ML 500 ML IV STA (16:20)
[2020-09-07] MEDS ORDERED: MORPHINE SULFATE 4 MG/ML SYRINGE IV STA (16:20)
[2020-09-07 16:39] LABS: Anisocytosis Slight; HCT 40.3 % (34.0-46.0); HGB 13.1 gm/dL (11.4-16.0); MCH 27.3 pg (25.0-35.0); MCHC 32.5 g/dL (31.0-37.0); MCV 83.9 fL (80.0-100.0); Mean Platelet Volume 8.2; Platelet Count 242 k/uL (150-450); RBC 4.81 m/uL (3.80-5.40); RDW 18.5 % (11.5-15.5); WBC 3.8 k/uL (3.8-10.6)
[2020-09-07 16:48] LABS: ALT 21 U/L (4-34); AST 41 U/L (14-36); African American GFR (CKD) >90 (>60 ml/min/1.73 sqM); Albumin 3.3 g/dL (3.5-5.0); Alkaline Phosphatase 108 U/L (38-126); Anion Gap 7 mmol/L; Blood Urea Nitrogen 2 mg/dL (7-17); Calcium 9.2 mg/dL (8.4-10.2); Carbon Dioxide 27 mmol/L (22-30); Chloride 105 mmol/L (98-107); Glucose 96 mg/dL (74-99); Magnesium 1.4 mg/dL (1.6-2.3); Non-African American GFR(CKD) >90 (>60 ml/min/1.73 sqM); Potassium 3.2 mmol/L (3.5-5.1); Sodium 139 mmol/L (137-145); Total Bilirubin 0.2 mg/dL (0.2-1.3); Total Protein 6.1 g/dL (6.3-8.2)
[2020-09-07] MEDS ORDERED: MAGNESIUM SULFATE-D5W PMX 1 GM in DEXTROSE/WATER 1 100ML.BAG IVPB ONE (16:50)
[2020-09-07 16:56] LABS: Prothrombin Time 10.4 sec (9.0-12.0)
--- NOTE | 2020-09-07 17:03 | ED ---
General Adult HPI - General Chief complaint: Chest Pain Stated complaint: Cancer Patient, High BP Time Seen by Provider: 09/07/20 16:01 Source: patient, RN notes reviewed, old records reviewed Mode of arrival: EMS Limitations: no limitations - History of Present Illness Initial comments: 60-year-old female with history of lung CVA presents for evaluation of epigastric abdominal pain and chest pain. Patient states she had an endoscopy performed about 4 days ago when she was admitted to the hospital. She has had some chest pain and epigastric pain since that time. She is also had chills. No measured fever. No vomiting. No lower abdominal pain. - Related Data Home Medications Medication Instructions Recorded Confirmed HYDROcodone/APAP 10-325MG [[place] 1 tab PO QID PRN 04/11/19 09/01/20 10-325] ALPRAZolam [Xanax] 0.5 mg PO HS 08/09/20 09/01/20 Folic Acid 1 mg PO DAILY 08/09/20 09/01/20 Ipratropium-Albuterol Nebulize 3 ml INHALATION RT-TID 08/09/20 09/01/20 [Duoneb 0.5 mg-3 mg/3 ml Soln] OLANZapine [ZyPREXA] 5 mg PO HS 08/09/20 09/01/20 buPROPion HCL [Wellbutrin XL] 150 mg PO BID 08/09/20 09/01/20 ondansetron HCL [Zofran] 8 mg PO Q6H PRN 08/09/20 09/01/20 Previous Rx's Medication Instructions Recorded Pantoprazole [Protonix] 40 mg PO BID 30 Days #60 tablet. 08/15/20 Sucralfate [Carafate] 1 gm PO ACHS 30 Days #30 tab 08/15/20 Fluconazole [Diflucan] 100 mg PO DAILY 7 Days #7 tab 09/05/20 Lidocaine Viscous [Xylocaine 30 ml PO TID 7 Days #300 ml 09/05/20 Viscous 2%] Mag Hydrox/Al Hydrox/Simeth 30 ml PO TID ml 09/05/20 [Maalox] Nystatin 100,000 Unit/ml Susp 3,000,000 unit PO TID 7 Days #300 09/05/20 [Mycostatin Oral Susp] ml diphenhydrAMINE ELIXIR [Benadryl 75 mg PO TID 7 Days #200 ml 09/05/20 Elixir] Allergies Allergy/AdvReac Type Severity Reaction Status Date / Time gentamicin Allergy Anaphylaxis Verified 09/01/20 13:06 Review of Systems ROS Statement: Those systems with pertinent positive or pertinent negative responses have been documented in the HPI. ROS Other: All systems not noted in ROS Statement are negative. Past Medical History Past Medical History: Cancer, Hearing Disorder / Deafness Additional Past Medical History / Comment(s): back pain; "several tia's-Last TIA 1 1/2 YEARS AGO, pluerisy, migraines, past falls, "was told at [facility] she had non-alcoholic cirrhosis". lung cancer History of Any Multi-Drug Resistant Organisms: None Reported Past Surgical History: Back Surgery, Breast Surgery, Hysterectomy Additional Past Surgical History / Comment(s): back sx, neck sx. spleenectomy- d/t injury; benign R Breast lumpectomy, sinus sx Past Anesthesia/Blood Transfusion Reactions: No Reported Reaction Additional Past Anesthesia/Blood Transfusion Reaction / Comment(s): Pt hs clausterphobia Past Psychological History: Depression Smoking Status: Former smoker Past Alcohol Use History: None Reported Past Drug Use History: None Reported - Past Family History Mother Family Medical History: Cancer Additional Family Medical History / Comment(s): Father History Unknown: Yes Family Medical History: No Reported History Additional Family Medical History / Comment(s): Father was murdered General Exam Limitations: no limitations General appearance: alert, in no apparent distress Head exam: Present: atraumatic, normocephalic Eye exam: Present: normal appearance, PERRL ENT exam: Present: normal exam Neck exam: Present: normal inspection. Absent: tenderness, meningismus Respiratory exam: Present: normal lung sounds bilaterally. Absent: respiratory distress, wheezes Cardiovascular Exam: Present: regular rate, normal rhythm GI/Abdominal exam: Present: soft, tenderness (Mild epigastric tenderness). Absent: distended Extremities exam: Present: normal inspection, normal capillary refill. Absent: pedal edema, calf tenderness Neurological exam: Present: alert, oriented X3, CN II-XII intact. Absent: motor sensory deficit Skin exam: Present: warm, dry, intact. Absent: cyanosis, diaphoretic Course Vital Signs 09/07/20 09/07/20 15:59 16:20 Temperature 99.1 F Pulse Rate 85 80 Respiratory 22 22 Rate Blood Pressure 168/117 177/117 O2 Sat by Pulse 94 L 93 L Oximetry EKG Findings - EKG Comments: EKG Findings:: EKG: Normal sinus rhythm, rate of 85, VT interval 154, QRS dur ation 74, QTC 476, no ST segment elevation. Medical Decision Making - Medical Decision Making 60-year-old female presenting with lower chest and upper abdominal pain history of severe esophagitis gastritis. She is on proton pump inhibitor. Symptoms have been persistent since time of discharge where she did have a complete evaluation. Symptoms have been unable to be controlled at home. Patient is feeling somewhat better after initial treatment in the ER but symptoms have not resolved. She will be admitted to Dr. Joshua who is aware o f the patient with both oncology and gastroenterology on consult. - Lab Data Result diagrams: 09/07/20 16:25 09/07/20 16:25 Lab Results 09/07/20 09/07/20 09/07/20 Range/Units 16:25 16:25 16:25 WBC 3.8 (3.8-10.6) k/uL RBC 4.81 (3.80-5.40) m/uL Hgb 13.1 (11.4-16.0) gm/dL Hct 40.3 (34.0-46.0) % MCV 83.9 (80.0-100.0) fL MCH 27.3 (25.0-35.0) pg MCHC 32.5 (31.0-37.0) g/dL RDW 18.5 H (11.5-15.5) % Plt Count 242 (150-450) k/uL MPV 8.2 Neutrophils % (Manual) 39 % Lymphocytes % (Manual) 35 % Monocytes % (Manual) 21 % Eosinophils % (Manual) 6 % Neutrophils # (Manual) 1.48 (1.3-7.7) k/uL Lymphocytes # (Manual) 1.33 (1.0-4.8) k/uL Monocytes # (Manual) 0.80 (0-1.0) k/uL Eosinophils # (Manual) 0.23 (0-0.7) k/uL Nucleated RBCs 0 (0-0) /100 WBC Manual Slide Review Performed Anisocytosis Slight Crenated Cell Present PT 10.4 (9.0-12.0) sec INR 1.0 (<1.2) APTT 21.6 L (22.0-30.0) sec Sodium 139 (137-145) mmol/L Potassium 3.2 L (3.5-5.1) mmol/L Chloride 105 (98-107) mmol/L Carbon Dioxide 27 (22-30) mmol/L Anion Gap 7 mmol/L BUN 2 L (7-17) mg/dL Creatinine 0.46 L (0.52-1.04) mg/dL Est GFR (CKD-EPI)AfAm >90 (>60 ml/min/1.73 sqM) Est GFR (CKD-EPI)NonAf >90 (>60 ml/min/1.73 sqM) Glucose 96 (74-99) mg/dL Plasma Lactic Acid Paresh (0.7-2.0) mmol/L Calcium 9.2 (8.4-10.2) mg/dL Magnesium 1.4 L (1.6-2.3) mg/dL Total Bilirubin 0.2 (0.2-1.3) mg/dL AST 41 H (14-36) U/L ALT 21 (4-34) U/L Alkaline Phosphatase 108 (38-126) U/L Troponin I (0.000-0.034) ng/mL Total Protein 6.1 L (6.3-8.2) g/dL Albumin 3.3 L (3.5-5.0) g/dL 09/07/20 09/07/20 Range/Units 16:25 16:25 WBC (3.8-10.6) k/uL RBC (3.80-5.40) m/uL Hgb (11.4-16.0) gm/dL Hct (34.0-46.0) % MCV (80.0-100.0) fL MCH (25.0-35.0) pg MCHC (31.0-37.0) g/dL RDW (11.5-15.5) % Plt Count (150-450) k/uL MPV Neutrophils % (Manual) % Lymphocytes % (Manual) % Monocytes % (Manual) % Eosinophils % (Manual) % Neutrophils # (Manual) (1.3-7.7) k/uL Lymphocytes # (Manual) (1.0-4.8) k/uL Monocytes # (Manual) (0-1.0) k/uL Eosinophils # (Manual) (0-0.7) k/uL Nucleated RBCs (0-0) /100 WBC Manual Slide Review Anisocytosis Crenated Cell PT (9.0-12.0) sec INR (<1.2) APTT (22.0-30.0) sec Sodium (137-145) mmol/L Potassium (3.5-5.1) mmol/L Chloride (98-107) mmol/L Carbon Dioxide (22-30) mmol/L Anion Gap mmol/L BUN (7-17) mg/dL Creatinine (0.52-1.04) mg/dL Est GFR (CKD-EPI)AfAm (>60 ml/min/1.73 sqM) Est GFR (CKD-EPI)NonAf (>60 ml/min/1.73 sqM) Glucose (74-99) mg/dL Plasma Lactic Acid Paresh 2.0 (0.7-2.0) mmol/L Calcium (8.4-10.2) mg/dL Magnesium (1.6-2.3) mg/dL Total Bilirubin (0.2-1.3) mg/dL AST (14-36) U/L ALT (4-34) U/L Alkaline Phosphatase (38-126) U/L Troponin I 0.028 (0.000-0.034) ng/mL Total Protein (6.3-8.2) g/dL Albumin (3.5-5.0) g/dL Disposition Clinical Impression: Gastritis, Esophagitis, Lung cancer, Chest pain Disposition: ADMITTED IP TO THIS [facility] Condition: Stable Is patient prescribed a controlled substance at d/c from ED?: No Referrals: Dwight Joshua MD [Primary Care Provider] - 1-2 days Time of Disposition: 18:16 Decision to Admit Reason: Admit from EC Decision Date: 09/07/20 Decision Time: 18:16
[2020-09-07 17:12] LABS: Eosinophils # (M) 0.23 k/uL (0-0.7); Lymphocytes # (M) 1.33 k/uL (1.0-4.8); Neutrophils # (M) 1.48 k/uL (1.3-7.7); Neutrophils % (M) 39 %; Nucleated Red Blood Cells 0 /100 WBC (0-0); Total Cells Counted 200
[2020-09-07 17:14] LABS: Crenated RBC Present
[2020-09-07 17:20] LABS: Partial Thromboplastin Time 21.6 sec (22.0-30.0)
--- NOTE | 2020-09-07 17:33 | XR ---
EXAMINATION TYPE: XR chest 2V DATE OF EXAM: 09/07/2020 COMPARISON: 09/01/2020 HISTORY: Chest pain TECHNIQUE: FINDINGS: There is no heart failure nor confluent pneumonic infiltrate. Costophrenic angles are clear . Heart size is normal. There is cervical spine fusion surgery. IMPRESSION: No active cardiopulmonary disease. There is clearing of a small infiltrate left lower lob e compared to old exam.
[2020-09-07] MEDS ORDERED: NALOXONE 0.4 MG/ML 1 ML VIAL IV PRN (17:56)
[2020-09-07] MEDS ORDERED: ACETAMINOPHEN TAB 325 MG TAB PO PRN (18:10)
[2020-09-07] MEDS ORDERED: ONDANSETRON 4 MG/2 ML VIAL IVP PRN (18:10)
[2020-09-07] MEDS: SODIUM CHLORIDE 0.9% 1,000 ML IV SCH (19:29)
[2020-09-07] MEDS: POTASSIUM CHLORIDE 10 MEQ in WATER FOR INJECTION 1 100ML.BAG IVPB SCH ×3 (20:50→23:45)
[2020-09-07] MEDS: HYDROmorphone 0.5 MG/0.5 ML SYRINGE IVP PRN (21:53)
[2020-09-07] MEDS: PANTOPRAZOLE 40 MG/10 ML VIAL IVP SCH (22:00)
[2020-09-08] MEDS: POTASSIUM CHLORIDE 10 MEQ in WATER FOR INJECTION 1 100ML.BAG IVPB SCH (01:06)
[2020-09-08] MEDS: HYDROmorphone 0.5 MG/0.5 ML SYRINGE IVP PRN (02:42)
[2020-09-08 05:47] LABS: ALT 17 U/L (4-34); AST 39 U/L (14-36); African American GFR (CKD) >90 (>60 ml/min/1.73 sqM); Albumin 2.7 g/dL (3.5-5.0); Alkaline Phosphatase 78 U/L (38-126); Anion Gap 5 mmol/L; Blood Urea Nitrogen 6 mg/dL (7-17); Calcium 8.6 mg/dL (8.4-10.2); Carbon Dioxide 25 mmol/L (22-30); Chloride 106 mmol/L (98-107); Globulin 2.7 g/dL; Glucose 88 mg/dL (74-99); Non-African American GFR(CKD) >90 (>60 ml/min/1.73 sqM); Potassium 4.1 mmol/L (3.5-5.1); Sodium 136 mmol/L (137-145); Total Bilirubin 0.2 mg/dL (0.2-1.3); Total Protein 5.4 g/dL (6.3-8.2)
[2020-09-08] MEDS: HYDROmorphone 1 MG/ML 1 ML SYRINGE IVP PRN ×4 (10:19→21:47)
[2020-09-08] MEDS: PANTOPRAZOLE 40 MG/10 ML VIAL IVP SCH ×2 (10:21→21:41)
[2020-09-08] MEDS: MAG HYDROX/AL HYDROX/SIMETH 30 ML, LIDOCAINE VISCOUS 30 ML, diphenhydrAMINE ELIXIR 75 M... PO SCH ×12 (11:34→21:41)
[2020-09-08] MEDS: SODIUM CHLORIDE 0.9% 1,000 ML IV SCH ×3 (11:35→21:47)
[2020-09-08] MEDS ORDERED: SUCRALFATE 1 GM TAB PO SCH (12:30)
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
[2020-09-08] MEDS: SUCRALFATE 1 GM TAB PO SCH ×2 (17:37→21:41)
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
--- NOTE | 2020-09-09 02:21 | HP ---
HISTORY AND PHYSICAL HISTORY OF PRESENT ILLNESS: 60-year-old white female with adenocarcinoma of the lung. Radiation chemotherapy. Had an EGD last week showed severe esophagitis. She was sent home on Diflucan, cold solution, Protonix 40 b.i.d. She had persisted chest pain and severe dysphagia, unable to swallow or eat. She became massively dehydrated, came back to the emergency room at which time she was admitted and given fluids overnight. She is on a clear liquid diet. She feels much better. She wants to be discharged home tomorrow despite the chest pain and treatment with esophagitis. She has been rehydrated. She will possibly go home tomorrow. Wants her diet advanced. REVIEW OF SYSTEMS: Fourteen-point review of systems negative except for mentioned in HPI. MEDS: See list. SOCIAL HISTORY: She quit smoking a couple months ago after many years of smoking. No alcohol. No drugs. PHYSICAL EXAMINATION: Vital signs stable. Afebrile. CARDIOVASCULAR: S1, S2. LUNGS: Clear. GI soft. HEMATOLOGY negative Homans. PSYCH: Fair mood and affect. NEUROLOGIC: Alert and oriented x3. ASSESSMENT: 1. Adenocarcinoma of the lung. 2. Chronic obstructive pulmonary disease. 3. Gastroesophageal reflux disease. 4. Ex-nicotine smoking. 5. Atypical chest pain. 6. Suggestive of dehydration secondary to acute esophagitis secondary to radiation treatment for adenocarcinoma lung. Continue rehydrate. Possible discharge home in the morning. Continue cold solution, Diflucan, Protonix. Prognosis guarded. MMODL / IJN: [id number] /
[2020-09-09] MEDS: HYDROmorphone 1 MG/ML 1 ML SYRINGE IVP PRN ×2 (02:34→09:02)
--- NOTE | 2020-09-09 08:21 | XR ---
EXAMINATION TYPE: XR ribs bilateral DATE OF EXAM: 09/09/2020 CLINICAL HISTORY: Pain, Fall 9 views of the ribs fail demonstrate evidence for displaced rib fracture or secondary sign of rib fra cture. Visualized lungs are clear. No evidence for pneumothorax. IMPRESSION: 1. No displaced rib fractures seen.
--- NOTE | 2020-09-09 08:22 | XR ---
EXAMINATION TYPE: XR sternum DATE OF EXAM: 09/09/2020 COMPARISON: NONE HISTORY: Chest wall pain TECHNIQUE: 2 views of the sternum are submitted. FINDINGS: The sternum is intact. No evidence for depressed or displaced sternal fracture. IMPRESSION: No evidence for sternal fracture at this time.
[2020-09-09] MEDS: MAG HYDROX/AL HYDROX/SIMETH 30 ML, LIDOCAINE VISCOUS 30 ML, diphenhydrAMINE ELIXIR 75 M... PO SCH ×12 (08:43→20:07)
[2020-09-09] MEDS: SUCRALFATE 1 GM TAB PO SCH ×4 (08:43→20:03)
[2020-09-09] MEDS: PANTOPRAZOLE 40 MG/10 ML VIAL IVP SCH (08:43)
--- NOTE | 2020-09-09 09:13 | P.PN ---
Subjective Progress Note Date: 09/09/20 Principal diagnosis: Chest Pain, radiation esophagitis Patient is seen and examined sitting up in bed. She states she still having chest pain, midsternal pain that is constant, worse with palpation. Denies any difficulty with swallowing, states her swallowing has improved. She would like to advance to a regular diet. She denies any nausea or vomiting, denies abdominal pain, or constipation. States her bowel movements are normal. Objective - Vital Signs Vital signs: Vital Signs Temp 98.6 F 09/09/20 07:00 Pulse 75 09/09/20 07:29 Resp 16 09/09/20 07:29 BP 135/85 09/09/20 07:00 Pulse Ox 94 L 09/09/20 07:00 Intake & Output 09/08/20 09/09/20 09/09/20 18:59 06:59 18:59 Intake Total 40 Balance 40 Intake: Oral 40 Other: Voiding Method Toilet Toilet Toilet # Voids 2 2 - Exam General appearance: The patient is alert, oriented, appears in no acute distress. HET: Head is normocephalic and atraumatic. Conjunctiva pink. Sclera anicteric. Neck: Supple without lymphadenopathy. Abdomen: Soft, nontender, nondistended with bowel sounds. No guarding or rigidity. Extremities: Normal skin color and turgor. No pedal edema Skin: No rashes, no jaundice Neurological: No focal deficits. Alert and oriented 3. - Labs CBC & Chem 7: 09/07/20 16:25 09/08/20 04:44 Assessment and Plan (1) Radiation esophagitis Narrative/Plan: 60-year-old female who presented to emergency department with continued epigastric pain which she states is constant, worse with eating. The patient was recently diagnosed with non-small cell lung cancer in May of this year and underwent 30 radiation treatments, last one being approximately 2 weeks. She follows with Dr. Masters. She was recently admitted and discharged less than a week ago for similar complaints. She underwent an EGD that showed severe esophagitis with exudates and is status post biopsies which showed severe esophagitis with rare yeast and exudates. The patient was discharged home on Protonix and Carafate, states she was not taking her medications because she went home with her daughter. Patient was treated with Diflucan on her previous admission. Again likely dealing with radiation esophagitis, continue with PPI and Carafate. Cool solution added. Current Visit: No Status: Acute Priority: High Code(s): K20.80 - OTHER ESOPHAGITIS WITHOUT BLEEDING; T66.XXXA - RADIATION SICKNESS, UNSPECIFIED, INITIAL ENCOUNTER SNOMED Code(s): 541446616 (2) Gastritis Current Visit: Yes Status: Acute Code(s): K29.70 - GASTRITIS, UNSPECIFIED, WITHOUT BLEEDING SNOMED Code(s): 6069293 (3) Primary lung adenocarcinoma Current Visit: No Status: Acute Priority: High Code(s): C34.90 - MALIGNANT NEOPLASM OF UNSP PART OF UNSP BRONCHUS OR LUNG SNOMED Code(s): 946225011 (4) Chest pain Narrative/Plan: Oncology ordered sternal and rib x-ray, both no fracture seen. Current Visit: Yes Status: Acute Code(s): R07.9 - CHEST PAIN, UNSPECIFIED SNOMED Code(s): 20394230 Plan: 1. Diet as tolerated 2. Protonix 40 mg twice a day 3. Carafate 3 times a day, and at bedtime 4. Kools solution as needed 5. Patient recently underwent EGD on 09/03/2020 showing severe esophagitis, no plans for repeat endoscopy Thank you for this consultation, we will sign off at this time. Dr. Augustin I agree with the dictator's note, documented as a scribe by Aida Alfredo.
[2020-09-09] MEDS: MELOXICAM 7.5 MG TAB PO SCH (10:23)
[2020-09-09] MEDS: HYDROmorphone 0.5 MG/0.5 ML SYRINGE IVP PRN ×2 (16:04→20:03)
[2020-09-09 19:23] VITALS: RESP 17
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
[2020-09-09] MEDS: PANTOPRAZOLE 40 MG TABLET PO SCH (20:03)
[2020-09-09] MEDS: SODIUM CHLORIDE 0.9% 1,000 ML IV SCH (22:51)
[2020-09-10] MEDS: HYDROmorphone 1 MG/ML 1 ML SYRINGE IVP PRN (03:36)
--- NOTE | 2020-09-10 06:20 | PN ---
PROGRESS NOTE Cardiovascular S1-S2. Lungs clear. GI soft. Hematology negative Homans. Her chest pain is 2 to 3/10, it is improving. Dysphagia is improving although she had some emesis today. We will monitor her oral intake overnight and possible to be discharged home in the morning. She has adenocarcinoma with severe esophagitis, on antifungals, Cool solution, etc. Follow up in next 24 to 48 hours for discharge. MMODL / IJN: [id number] /
[2020-09-10 07:20] VITALS: BP 130/80; PULSE 73; TEMP 98
[2020-09-10] MEDS: SUCRALFATE 1 GM TAB PO SCH (08:55)
[2020-09-10] MEDS: PANTOPRAZOLE 40 MG TABLET PO SCH (08:55)
[2020-09-10] MEDS: MELOXICAM 7.5 MG TAB PO SCH (08:56)
[2020-09-10] MEDS: MAG HYDROX/AL HYDROX/SIMETH 30 ML, LIDOCAINE VISCOUS 30 ML, diphenhydrAMINE ELIXIR 75 M... PO SCH ×4 (08:57)
[2020-09-10] MEDS ORDERED: methylPREDNISolone 4 MG TAB TAPER PO SCH (09:00)
== END 2020-09-10 11:10 ==
LOC: EC 15:57 → 6NMEDSUR 17:57
PROVIDERS: ADMIT Family Medicine; ATTEND Family Medicine
DX: C34.90 Malignant neoplasm of unspecified part of unspecified bronchus or lung (principal); K20.80 Other esophagitis without bleeding; T66.XXXA Radiation sickness, unspecified, initial encounter; Y84.2 Radiological procedure and radiotherapy as the cause of abnormal reaction of the patient, or of later complication, without mention of misadventure at the time of the procedure; E86.0 Dehydration; K29.70 Gastritis, unspecified, without bleeding; J44.9 Chronic obstructive pulmonary disease, unspecified; K21.9 Gastro-esophageal reflux disease without esophagitis; K22.10 Ulcer of esophagus without bleeding; H91.90 Unspecified hearing loss, unspecified ear; G89.29 Other chronic pain; M54.9 Dorsalgia, unspecified; K74.60 Unspecified cirrhosis of liver; F12.90 Cannabis use, unspecified, uncomplicated; F32.9 Major depressive disorder, single episode, unspecified; Z91.14 Patient's other noncompliance with medication regimen; Z79.899 Other long term (current) drug therapy; Z88.1 Allergy status to other antibiotic agents; Z90.710 Acquired absence of both cervix and uterus; Z90.81 Acquired absence of spleen; Z92.3 Personal history of irradiation; Z87.891 Personal history of nicotine dependence; Z86.73 Personal history of transient ischemic attack (TIA), and cerebral infarction without residual deficits; Z86.69 Personal history of other diseases of the nervous system and sense organs; Z80.9 Family history of malignant neoplasm, unspecified
CPT/HCPCS: 96376 ×3; 96361 ×3; 96366 ×2; 96375 ×2; 96365; 96367; 99285; 36415; 93005; 80053 ×2; 83605; 83735; 84484; 85025; 85610; 85730; 71110; 71120; 71046; G0378 ×4; J2270; J1170 ×6; J3475; J3480 ×2; C9113 ×3

== ENCOUNTER 2020-09-11 22:16 | Observation (INO) | payer MEDICARE, OTHER ==
[2020-09-11] MEDS ORDERED: SODIUM CHLORIDE 0.9% 1,000 ML IV STA (22:41)
[2020-09-11] MEDS ORDERED: MORPHINE SULFATE 4 MG/ML SYRINGE IV STA (22:41)
--- NOTE | 2020-09-11 22:42 | ED ---
Chest Pain HPI - General Chief Complaint: Chest Pain Stated Complaint: Chest pain Time Seen by Provider: 09/11/20 22:37 Source: patient, RN notes reviewed, old records reviewed Mode of arrival: wheelchair Limitations: no limitations - History of Present Illness Initial Comments: This is a 58-year-old female to the ER for evaluation. Patient presents today for evaluation regards to chest pain. Patient states she has history of lung CA and presented for chest pain today. She believes the pain is from or mass. MD Complaint: chest pain -: days(s) Onset: during rest, during exertion Pain Location: substernal Pain Radiation: none Severity: moderate Severity scale (1-10): 7 Quality: sharp Consistency: constant Worsens With: nothing Anginal Symptoms: nausea Other Symptoms: cough Treatments Prior to Arrival: none - Related Data Home Medications Medication Instructions Recorded Confirmed HYDROcodone/APAP 10-325MG [[place] 1 tab PO QID PRN 04/11/19 09/11/20 10-325] ALPRAZolam [Xanax] 0.5 mg PO HS 08/09/20 09/11/20 Folic Acid 1 mg PO DAILY 08/09/20 09/11/20 Ipratropium-Albuterol Nebulize 3 ml INHALATION RT-TID 08/09/20 09/11/20 [Duoneb 0.5 mg-3 mg/3 ml Soln] OLANZapine [ZyPREXA] 5 mg PO HS 08/09/20 09/11/20 buPROPion HCL [Wellbutrin XL] 150 mg PO BID 08/09/20 09/11/20 ondansetron HCL [Zofran] 8 mg PO Q6H PRN 08/09/20 09/11/20 methylPREDNISolone Dose Pack See Taper PO DAILY 09/11/20 09/11/20 [Medrol Dose Pack] Previous Rx's Medication Instructions Recorded Pantoprazole [Protonix] 40 mg PO BID 30 Days #60 ashely. 08/15/20 Sucralfate [Carafate] 1 gm PO ACHS 30 Days #30 tab 08/15/20 Fluconazole [Diflucan] 100 mg PO DAILY 7 Days #7 tab 09/05/20 Lidocaine Viscous [Xylocaine 30 ml PO TID 7 Days #300 ml 09/05/20 Viscous 2%] Mag Hydrox/Al Hydrox/Simeth 30 ml PO TID ml 09/05/20 [Maalox] Nystatin 100,000 Unit/ml Susp 3,000,000 unit PO TID 7 Days #300 09/05/20 [Mycostatin Oral Susp] ml diphenhydrAMINE ELIXIR [Benadryl 75 mg PO TID 7 Days #200 ml 09/05/20 Elixir] Meloxicam [Mobic] 7.5 mg PO DAILY #60 tab 09/09/20 Allergies Allergy/AdvReac Type Severity Reaction Status Date / Time gentamicin Allergy Anaphylaxis Verified 09/11/20 22:54 Review of Systems ROS Statement: Those systems with pertinent positive or pertinent negative responses have been documented in the HPI. ROS Other: All systems not noted in ROS Statement are negative. EKG Findings - EKG Comments: EKG Findings:: EKG shows sinus tachycardia 105 NM 150 QRS 76 QTc 496 Past Medical History Past Medical History: Cancer, Hearing Disorder / Deafness Additional Past Medical History / Comment(s): back pain; "several tia's-Last TIA 1 1/2 YEARS AGO, pluerisy, migraines, past falls, "was told at [facility] she had non-alcoholic cirrhosis". lung cancer History of Any Multi-Drug Resistant Organisms: None Reported Past Surgical History: Back Surgery, Breast Surgery, Hysterectomy Additional Past Surgical History / Comment(s): back sx, neck sx. spleenectomy- d/t injury; benign R Breast lumpectomy, sinus sx Past Anesthesia/Blood Transfusion Reactions: No Reported Reaction Additional Past Anesthesia/Blood Transfusion Reaction / Comment(s): Pt hs clausterphobia Past Psychological History: Depression Smoking Status: Former smoker Past Alcohol Use History: None Reported Past Drug Use History: None Reported - Past Family History Mother Family Medical History: Cancer Additional Family Medical History / Comment(s): Father History Unknown: Yes Family Medical History: No Reported History Additional Family Medical History / Comment(s): Father was murdered General Exam General appearance: alert, in no apparent distress Head exam: Present: atraumatic, normocephalic, normal inspection Eye exam: Present: normal appearance, PERRL, EOMI. Absent: scleral icterus, conjunctival injection, periorbital swelling ENT exam: Present: normal exam, mucous membranes moist Neck exam: Present: normal inspection. Absent: tenderness, meningismus, lymphadenopathy Respiratory exam: Present: normal lung sounds bilaterally. Absent: respiratory distress, wheezes, rales, rhonchi, stridor Cardiovascular Exam: Present: normal rhythm, tachycardia, normal heart sounds. Absent: systolic murmur, diastolic murmur, rubs, gallop, clicks GI/Abdominal exam: Present: soft, normal bowel sounds. Absent: distended, tenderness, guarding, rebound, rigid Extremities exam: Present: normal inspection, full ROM, normal capillary refill. Absent: tenderness, pedal edema, joint swelling, calf tenderness Back exam: Present: normal inspection Neurological exam: Present: alert, oriented X3, CN II-XII intact Psychiatric exam: Present: normal affect, normal mood Skin exam: Present: warm, dry, intact, normal color. Absent: rash Course Vital Signs 09/11/20 09/11/20 09/12/20 22:23 23:25 01:25 Temperature 98.1 F Pulse Rate 106 H 85 89 Respiratory 16 20 Rate Blood Pressure 128/92 128/85 135/93 O2 Sat by Pulse 95 95 95 Oximetry - Reevaluation(s) Reevaluation #1: Medical record is reviewed Patient symptoms improved here in the ER Patient is in no acute distress Patient informed results and questions answered Reevaluation #2: On reevaluation patient has continued and persistent pain, will admit for pain control Chest Pain MDM - MDM 60 female DF for evaluation patient [place] for evaluation of chest pain [place] for chest pain control chronic pain likely cancer related Disposition Clinical Impression: Lung cancer, Chest pain, Chronic pain Disposition: ADMITTED IP TO THIS HOSP Condition: Fair Is patient prescribed a controlled substance at d/c from ED?: No
[2020-09-11 23:07] LABS: Anisocytosis Slight; Basophils % (A) 1 %; Eosinophils % (A) 1 %; HCT 39.1 % (34.0-46.0); Lymphocytes # (A) 1.3 k/uL (1.0-4.8); Lymphocytes % (A) 25 %; MCH 27.9 pg (25.0-35.0); MCHC 33.3 g/dL (31.0-37.0); MCV 83.8 fL (80.0-100.0); Mean Platelet Volume 7.7; Monocytes # (A) 0.4 k/uL (0-1.0); Monocytes % (A) 8 %; Neutrophils # (A) 3.2 k/uL (1.3-7.7); Neutrophils % (A) 62 %; Platelet Count 403 k/uL (150-450); RBC 4.67 m/uL (3.80-5.40); RDW 18.8 % (11.5-15.5); WBC 5.1 k/uL (3.8-10.6)
[2020-09-11 23:23] LABS: Partial Thromboplastin Time 22.1 sec (22.0-30.0); Prothrombin Time 10.4 sec (9.0-12.0)
[2020-09-11 23:32] LABS: ALT 20 U/L (4-34); AST 43 U/L (14-36); African American GFR (CKD) >90 (>60 ml/min/1.73 sqM); Albumin 3.2 g/dL (3.5-5.0); Alkaline Phosphatase 97 U/L (38-126); Anion Gap 7 mmol/L; Blood Urea Nitrogen 6 mg/dL (7-17); Calcium 9.3 mg/dL (8.4-10.2); Carbon Dioxide 23 mmol/L (22-30); Chloride 108 mmol/L (98-107); Creatine Kinase 49 U/L (30-135); Glucose 146 mg/dL (74-99); Magnesium 1.4 mg/dL (1.6-2.3); Non-African American GFR(CKD) >90 (>60 ml/min/1.73 sqM); Phosphorus 3.6 mg/dL (2.5-4.5); Potassium 3.7 mmol/L (3.5-5.1); Sodium 138 mmol/L (137-145); Total Bilirubin 0.3 mg/dL (0.2-1.3); Total Protein 6.2 g/dL (6.3-8.2)
--- NOTE | 2020-09-11 23:39 | XR ---
EXAMINATION TYPE: XR chest 2V DATE OF EXAM: 09/11/2020 COMPARISON: 09/07/2020 HISTORY: Weakness TECHNIQUE: FINDINGS: Heart and mediastinum are within normal limits. Lungs are clear of infiltrate. There is no heart failure. There are chest leads. Diaphragm is normal. Thoracic spine is intact. IMPRESSION: No active cardiopulmonary disease. No change.
[2020-09-11 23:41] LABS: D-Dimer 1.03 mg/L FEU (<0.60)
[2020-09-12] MEDS ORDERED: NALOXONE 0.4 MG/ML 1 ML VIAL IV PRN (01:34)
[2020-09-12] MEDS ORDERED: ONDANSETRON 4 MG/2 ML VIAL IVP PRN (01:34)
[2020-09-12] MEDS: SODIUM CHLORIDE 0.9% 1,000 ML IV SCH ×3 (02:03→19:55)
[2020-09-12] MEDS: HYDROmorphone 1 MG/ML 1 ML SYRINGE IVP PRN ×4 (02:24→19:56)
[2020-09-12] MEDS: CALCIUM CARBONATE 500 MG CHEWABLE PO PRN (11:56)
[2020-09-12] MEDS: MAGNESIUM OXIDE 400 MG TAB PO SCH (11:56)
--- NOTE | 2020-09-12 11:56 | HP ---
HISTORY AND PHYSICAL 60-year-old white female came to the ER for evaluation of severe chest pain. She was lying in a position at home, unable to move. She has history of lung cancer status post radiation and chemotherapy and severe esophagitis. She is unable to eat or drink. She is admitted with severe chest pain. MEDICATIONS: [place] 10/325 q.i.d., senna 0.5 q.h.s., folic acid 1 mg daily, DuoNeb updrafts t.i.d., Zyprexa 5 mg daily, Wellbutrin XL 150 b.i.d., Zofran 8 mg q.4-6 hours. She has been on fluconazole, Cools solution for esophagitis and Protonix 40 mg b.i.d. ALLERGIES: GENTAMICIN. REVIEW OF SYSTEMS: 14-point review of system as mentioned above. PAST MEDICAL HISTORY: Adenocarcinoma of the lung status post radiation and chemo, migraines, nicotine addiction, degenerative disc disease, back surgery, breast surgery, hysterectomy, some depression. FAMILY HISTORY: Father was murdered. Mother with cancer. PHYSICAL EXAMINATION: Vital signs reviewed. She is alert. She has no acute distress. HEAD: Normocephalic, atraumatic. External ear canals normal. Pupils equal, round, reactive. She wears glasses. LUNGS: Clear. CARDIOVASCULAR: S1, S2. MUSCULOSKELETAL: She has tenderness to palpation anterior chest wall. GI: She is tender to palpation in epigastric. PSYCH: Fair mood and affect. NEUROLOGIC: Alert orient x3. VITAL SIGNS: Pulse 106, temp 98.1, respiratory 16 to 18, blood pressure 128/92. ASSESSMENT: 1. Adenocarcinoma of the lung. 2. Atypical chest pain. 3. Chronic pain syndrome. PLAN: Continue current treatment. Get esophagitis workup by GI. Get Cardiology to see her for chest pain. Possibly treats for some costochondritis. Prognosis guarded. MMODL / IJN: [id number] /
[2020-09-12] MEDS: MAG HYDROX/AL HYDROX/SIMETH 30 ML, LIDOCAINE VISCOUS 30 ML, diphenhydrAMINE ELIXIR 75 M... PO SCH ×12 (12:26→19:56)
[2020-09-12] MEDS: FLUCONAZOLE 100 MG TAB PO SCH (12:26)
[2020-09-12] MEDS: KETOROLAC 15 MG/ML 1 ML VIAL IM SCH ×3 (13:50→23:28)
[2020-09-12] MEDS: oxyCODONE-APAP 10-325MG 1 EACH TAB PO PRN ×2 (15:50→22:50)
--- NOTE | 2020-09-12 19:44 | CONS ---
CONSULTATION CARDIOLOGY CONSULTATION NOTE: CHIEF COMPLAINT: Chest pain. Na is a 61-year-old lady who had recently been diagnosed with lung cancer and is admitted to the hospital with chest pain. She describes it as a precordial chest pressure with difficulty in swallowing food. An EKG on her shows sinus rhythm without significant ST-T wave changes. Cardiac enzymes so far have been negative. There is no prior history of coronary artery disease or congestive heart failure. PAST MEDICAL HISTORY: Significant for lung cancer. CURRENT MEDICATIONS: Include Protonix, Zyprexa, Maalox, xylocaine, DuoNeb, folic acid, Xanax. ALLERGIES: ANTIMYCIN. FAMILY HISTORY: Negative for premature coronary artery disease. SOCIAL HISTORY: Significant for smoking. There is no history of EtOH abuse or drug abuse. REVIEW OF SYSTEMS: HEENT: Is unremarkable. CARDIAC: As described above. RESPIRATORY: As described above. GI: Negative. GENITOURINARY: Negative. SKIN: Negative. MUSCULOSKELETAL: Significant for arthritis. PSYCHOSOCIAL: Negative. ENDOCRINE/DERM: Negative. CONSTITUTIONAL: Negative. ONCOLOGICAL: Negative. EXAM: Comfortable at rest. Vital signs are stable. Chest exam reveals diminished air entry bilaterally. Heart exam reveals first and second heart sounds. No gallop. No murmur. Abdomen is soft. Exam of extremities did not reveal any edema. Peripheral pulses are felt. LABS: Labs show that 2 sets of troponins are negative. ASSESSMENT: Atypical chest pain, probably musculoskeletal, could be related to the underlying lung cancer. Cardiac enzymes are negative. I will obtain a 2D echo to assess LV function, wall motion and to rule out any pericardial effusion. Other than that, she does not require any other cardiac workup. MMODL / IJN: [id number] /
[2020-09-13] MEDS: HYDROmorphone 1 MG/ML 1 ML SYRINGE IVP PRN (03:52)
[2020-09-13] MEDS: KETOROLAC 15 MG/ML 1 ML VIAL IM SCH ×4 (05:00→23:19)
[2020-09-13 06:23] LABS: Anisocytosis Slight; HCT 35.3 % (34.0-46.0); HGB 11.2 gm/dL (11.4-16.0); Hypochromasia Slight; MCH 27.7 pg (25.0-35.0); MCHC 31.6 g/dL (31.0-37.0); MCV 87.6 fL (80.0-100.0); Mean Platelet Volume 8.3; Platelet Count 481 k/uL (150-450); RBC 4.04 m/uL (3.80-5.40); RDW 19.2 % (11.5-15.5)
[2020-09-13 06:30] LABS: ALT 19 U/L (4-34); AST 43 U/L (14-36); African American GFR (CKD) >90 (>60 ml/min/1.73 sqM); Albumin 2.8 g/dL (3.5-5.0); Alkaline Phosphatase 68 U/L (38-126); Anion Gap 6 mmol/L; Blood Urea Nitrogen 11 mg/dL (7-17); Calcium 8.9 mg/dL (8.4-10.2); Carbon Dioxide 23 mmol/L (22-30); Chloride 113 mmol/L (98-107); Globulin 2.8 g/dL; Glucose 108 mg/dL (74-99); Magnesium 1.5 mg/dL (1.6-2.3); Non-African American GFR(CKD) >90 (>60 ml/min/1.73 sqM); Phosphorus 4.1 mg/dL (2.5-4.5); Potassium 3.9 mmol/L (3.5-5.1); Sodium 142 mmol/L (137-145); Total Bilirubin 0.1 mg/dL (0.2-1.3); Total Protein 5.6 g/dL (6.3-8.2)
[2020-09-13] MEDS: oxyCODONE-APAP 10-325MG 1 EACH TAB PO PRN ×4 (07:59→19:57)
[2020-09-13] MEDS: FLUCONAZOLE 100 MG TAB PO SCH ×2 (07:59→22:16)
[2020-09-13] MEDS: MAGNESIUM OXIDE 400 MG TAB PO SCH (07:59)
[2020-09-13] MEDS: SODIUM CHLORIDE 0.9% 1,000 ML IV SCH ×2 (08:00→19:57)
[2020-09-13] MEDS: MAG HYDROX/AL HYDROX/SIMETH 30 ML, LIDOCAINE VISCOUS 30 ML, diphenhydrAMINE ELIXIR 75 M... PO SCH ×12 (08:00→19:56)
[2020-09-13 08:40] LABS: Lymphocytes # (M) 1.24 k/uL (1.0-4.8); Monocytes # (M) 0.72 k/uL (0-1.0); Neutrophils # (M) 2.04 k/uL (1.3-7.7); Neutrophils % (M) 51 %; Nucleated Red Blood Cells 0 /100 WBC (0-0); Total Cells Counted 100
[2020-09-13 09:33] LABS: Crenated RBC Present; Howell-Jolly Bodies Present
--- NOTE | 2020-09-13 12:11 | CONS ---
CONSULTATION DATE OF SERVICE: September 13, 2020 REQUESTING PHYSICIAN: Dr. Dwight Joshua. HISTORY OF PRESENT ILLNESS: Patient is a 60-year-old pleasant white female with history of metastatic non-small lung CA diagnosed late part of last year and follows with Dr. Masters. She is status post chemo as well as radiation therapy. Her radiation therapy ended approximately 3 weeks ago. She was admitted to the hospital with dysphagia, chest pain, intermittent episodes of nausea, vomiting. She had 2 hospitalizations in the last 2 weeks. She did have an upper endoscopy done by me in the end of August of this year that revealed severe radiation esophagitis involving the mid esophagus extending from 25-30 cm from the incisors and biopsies from that area revealed acute severe erosive esophagitis. The patient has been on Protonix as well as Carafate and was treated with Diflucan for 10 days for Mini esophagitis. She is feeling better today. She was able to eat some softer foods. She had an episode of nausea and vomiting yesterday. Still has some chest pain. No fever, chills, night sweats. PAST MEDICAL HISTORY: Significant for non-small cell lung CA diagnosed last year, status post chemo radiation therapy and about 3 weeks ago, history of anxiety, depression. MEDICATIONS: Medications at home include Joes, Xanax, folic acid, albuterol, Zyprexa, Wellbutrin, Zofran, Protonix, Carafate, Diflucan, Xylocaine, Benadryl. ALLERGIES: GENTAMICIN. PAST SURGICAL HISTORY: Hysterectomy, breast surgery, back surgery, splenectomy, sinus surgery. FAMILY HISTORY: Mother had some cancer. Father no medical history. REVIEW OF SYSTEMS: CARDIOPULMONARY: No chest pain or shortness of breath. : No dysuria or hematuria. MUSCULOSKELETAL: Some chronic back pain. NEUROLOGY: Occasional headaches. ENT: Vision unremarkable. CONSTITUTIONAL: Weight loss of about 15 pounds. No fever, chills, night sweats. HEMATOLOGY: Unremarkable. PSYCHIATRY: Anxiety and depression. PHYSICAL EXAMINATION: Blood pressure is 144/68, pulse 70, temperature 97.7. HEENT examination unremarkable. Conjunctivae pink. Sclerae anicteric. Oral cavity no lesions. NECK: No JVD. No lymph node enlargement. CHEST was clear to auscultation. HEART: Regular rate and rhythm. ABDOMEN: Soft. Bowel sounds are positive. No organomegaly. EXTREMITIES: No pedal edema. SKIN no rashes. NEURO: She is alert and oriented x3. No focal deficits. LABS: WBC 4, hemoglobin 11.2, platelets 181. Basic metabolic panel is within normal limits. Magnesium is low at 1.5. T-bilirubin is 0.1. AST, ALT, T-bilirubin are normal. Albumin is 2.8. IMPRESSION: 1. Chest pain/dysphagia/odynophagia secondary to severe radiation-induced esophagitis noted on upper endoscopy about 2 weeks ago. The patient presently on Benadryl elixir as well as Carafate and Protonix and symptoms gradually improving. 2. History of non-small cell small cell lung CA diagnosed last year, status post chemo radiation therapy that ended about 2 weeks ago. 3. History of anxiety and depression. RECOMMENDATIONS: 1. Continue with soft diet. 2. Continue with Cool solution 3 times daily as needed. 3. Ensure 1 can 3 times daily. 4. No need for repeat upper endoscopy at the present time. 5. We will follow with you closely. Thank you for this consultation. MMODL / IJN: [id number] /
--- NOTE | 2020-09-13 12:52 | ECHOF ---
Referral Reason:cp MEASUREMENTS -------- HEIGHT: 152.4 cm WEIGHT: 79.4 kg BP: RVIDd: 3.0 cm (< 3.3) IVSd: 1.3 cm (0.6 - 1.1) LVIDd: 4.1 cm (3.9 - 5.3) LVPWd: 1.5 cm (0.6 - 1.1) IVSs: 1.5 cm LVIDs: 3.6 cm LVPWs: 1.4 cm LAESV Index (A-L): 32.17 ml/m Ao Diam: 2.7 cm (2.0 - 3.7) AV Cusp: 1.8 cm (1.5 - 2.6) MV EXCURSION: 14.924 mm (> 18.000) MV EF SLOPE: 57 mm/s (70 - 150) EPSS: 0.6 cm MV E Darine: 0.41 m/s MV DecT: 302 ms MV A [place]: 1.01 m/s MV E/A Ratio: 0.40 RAP: 5.00 mmHg RVSP: 23.72 mmHg FINDINGS -------- Sinus rhythm. This was a technically good study. LV size, wall thickness and systolic function are normal, with an EF greater than 55%. The left elder tricular size is normal. The right ventricle is normal in size. LA is midly dilated 29-33ml/m2. The right atrial size is normal. The aortic valve is trileaflet, and appears structurally normal. No aortic stenosis or regurgitation. Mild mitral annular calcification present. Mild mitral regurgitation is present. Mild tricuspid regurgitation present. Right ventricular systolic pressure is normal at < 35 mmHg. There is no pulmonic regurgitation present. The aortic root size is normal. There is no pericardial effusion. CONCLUSIONS -------- 1. LV size, wall thickness and systolic function are normal, with an EF greater than 55%. 2. The left ventricular size is normal. 3. The right ventricle is normal in size. 4. LA is midly dilated 29-33ml/m2. 5. The right atrial size is normal. 6. The aortic valve is trileaflet, and appears structurally normal. No aortic stenosis or regurgitati on. 7. Mild mitral annular calcification present. 8. Mild mitral regurgitation is present. 9. Mild tricuspid regurgitation present. 10. The aortic root size is normal. 11. There is no pericardial effusion. ENROLLMENT MANAGEMENT VICE PRESIDENT: Buffy Jensen RDCS
[2020-09-13] MEDS: CALCIUM CARBONATE 500 MG CHEWABLE PO PRN (19:56)
[2020-09-13] MEDS ORDERED: ALPRAZolam 0.5 MG TAB PO SCH (22:00)
[2020-09-13] MEDS ORDERED: diphenhydrAMINE ELIXIR 25 MG/10 ML CUP PO SCH (22:00)
[2020-09-13] MEDS ORDERED: MAG HYDROX/AL HYDROX/SIMETH 30 ML CUP PO SCH (22:00)
[2020-09-13] MEDS ORDERED: NYSTATIN 100,000 UNIT/ML SUSP 500,000 UNIT/5 ML CUP PO SCH (22:00)
[2020-09-13] MEDS ORDERED: LIDOCAINE VISCOUS PO SCH (22:00)
[2020-09-13] MEDS: FOLIC ACID 1 MG TAB PO SCH (22:16)
[2020-09-13] MEDS: buPROPion XL 150 MG TAB.ER.24H PO SCH (22:16)
[2020-09-13] MEDS: MELOXICAM 7.5 MG TAB PO SCH (22:16)
[2020-09-14] MEDS: oxyCODONE-APAP 10-325MG 1 EACH TAB PO PRN ×2 (00:18→07:16)
[2020-09-14 01:49] VITALS: PULSE 69; TEMP 98.3
[2020-09-14] MEDS: SODIUM CHLORIDE 0.9% 1,000 ML IV SCH (04:25)
[2020-09-14] MEDS: KETOROLAC 15 MG/ML 1 ML VIAL IM SCH (05:22)
--- NOTE | 2020-09-14 07:04 | PN ---
PROGRESS NOTE 60-year-old white female admitted with metastatic non-small cell lung cancer, came to the hospital with worsening dysphagia, chest pain, nausea, vomiting. She has been in the hospital twice in the last 2 weeks due to significant chest pain. She is getting better with Percocet, off [place]. She will go home tomorrow morning on Percocet instead of [place]. She will continue on Diflucan, Cool solution, Carafate for Mini esophagitis versus radiation cystitis. Lungs are clear. Cardiovascular S1, S2. GI is distended due to obesity. Weight is down 15 pounds. Psych: Anxiety depression. Blood pressure 144/68, pulse 70, temperature 97.7. CARDIOVASCULAR: S1, S2. Lungs clear. GI soft. PLAN: 1. Soft diet. 2. Cool solution. 3. Ensure. 4. No endoscopy will be needed. 5. Continue current treatments. 6. Home in the morning on Percocet which is controlling her chest pain which is mostly musculoskeletal versus radiation esophagitis. MMODL / IJN: [id number] /
[2020-09-14] MEDS: MAGNESIUM OXIDE 400 MG TAB PO SCH (07:16)
[2020-09-14] MEDS: FOLIC ACID 1 MG TAB PO SCH (07:16)
[2020-09-14] MEDS: MELOXICAM 7.5 MG TAB PO SCH (07:17)
[2020-09-14] MEDS: MAG HYDROX/AL HYDROX/SIMETH 30 ML, LIDOCAINE VISCOUS 30 ML, diphenhydrAMINE ELIXIR 75 M... PO SCH ×4 (07:17)
[2020-09-14] MEDS: buPROPion XL 150 MG TAB.ER.24H PO SCH (07:18)
[2020-09-14] MEDS: FLUCONAZOLE 100 MG TAB PO SCH (07:18)
[2020-09-14 07:39] VITALS: BP 145/94; RESP 16
[2020-09-14] MEDS ORDERED: IPRATROPIUM-ALBUTEROL 3 ML NEB INHALATION SCH (08:00)
[2020-09-14] MEDS ORDERED: OLANZapine 5 MG TAB PO SCH (21:00)
== END 2020-09-14 09:13 | disposition home or self-care (01) ==
LOC: EC 22:16 → 6NMEDSUR 09-12 01:34
PROVIDERS: ADMIT Family Medicine; ATTEND Family Medicine
DX: K20.80 Other esophagitis without bleeding (principal); C34.90 Malignant neoplasm of unspecified part of unspecified bronchus or lung; K74.60 Unspecified cirrhosis of liver; G89.4 Chronic pain syndrome; G43.909 Migraine, unspecified, not intractable, without status migrainosus; M19.90 Unspecified osteoarthritis, unspecified site; I08.1 Rheumatic disorders of both mitral and tricuspid valves; F32.9 Major depressive disorder, single episode, unspecified; F41.9 Anxiety disorder, unspecified; H91.90 Unspecified hearing loss, unspecified ear; E66.9 Obesity, unspecified; Z68.33 Body mass index [BMI] 33.0-33.9, adult; F40.240 Claustrophobia; Y84.2 Radiological procedure and radiotherapy as the cause of abnormal reaction of the patient, or of later complication, without mention of misadventure at the time of the procedure; Z79.52 Long term (current) use of systemic steroids; Z79.1 Long term (current) use of non-steroidal anti-inflammatories (NSAID); Z79.899 Other long term (current) drug therapy; Z88.1 Allergy status to other antibiotic agents; Z86.73 Personal history of transient ischemic attack (TIA), and cerebral infarction without residual deficits; Z90.710 Acquired absence of both cervix and uterus; Z98.890 Other specified postprocedural states; Z87.828 Personal history of other (healed) physical injury and trauma; Z87.891 Personal history of nicotine dependence; Z92.21 Personal history of antineoplastic chemotherapy; Z92.3 Personal history of irradiation; Z87.19 Personal history of other diseases of the digestive system; Z90.81 Acquired absence of spleen; Z80.9 Family history of malignant neoplasm, unspecified
CPT/HCPCS: 96376 ×2; 96361 ×4; 96372; 96375; 96374; 99285; 36415; 93005; 93306; 85379; 83880; 80053 ×2; 82550; 83735 ×2; 84100 ×2; 84484 ×2; 85025 ×2; 85610; 85730; 71046; G0378 ×3; J2270; J1170 ×2; J1885

== ENCOUNTER 2021-09-14 21:04 | Emergency (ER) | payer MEDICARE, OTHER ==
[2021-09-14] MEDS ORDERED: ONDANSETRON ODT 4 MG TAB PO STA (22:57)
[2021-09-14] MEDS ORDERED: HYDROmorphone 1 MG/ML 1 ML SYRINGE IM STA (22:57)
[2021-09-14] MEDS ORDERED: ORPHENADRINE 30 MG/ML 2 ML VIAL IM STA (22:57)
[2021-09-15] MEDS ORDERED: HYDROmorphone 1 MG/ML 1 ML SYRINGE IM STA (02:23)
--- NOTE | 2021-09-15 02:26 | XR ---
EXAM: XR Thoracic Spine, 2 Views CLINICAL HISTORY: ITS.REASON XR Reason: back pain, known compression fractures TECHNIQUE: Frontal and lateral views of the thoracic spine. COMPARISON: Thoracic spine MRI from 10/09/17. FINDINGS: Vertebrae: Moderate into wedge-shaped compression defect at approximately level of T9, age indeterminate. Osteopenia. ACDF of lower cervical spine. Normal alignment. Disc spaces: Mild degenerative disc disease. Lungs: Small amount of linear opacities in right lung, most prominent in the suprahilar region. Soft tissues: Unremarkable. IMPRESSION: 1. Moderate into wedge-shaped compression defect at approximately level of T9, age indeterminate. Please correlate with location of pain. 2. Small amount of linear opacities in right lung, most prominent in the suprahilar region, suggest pneumonia versus aspiration.
[2021-09-15 02:37] VITALS: BP 96/64; PULSE 85; RESP 20; TEMP 97.8
--- NOTE | 2021-09-15 02:51 | ED ---
General Adult HPI - General Chief complaint: Back Pain/Injury Stated complaint: Back pain Time Seen by Provider: 09/14/21 22:17 Source: patient, RN notes reviewed Mode of arrival: EMS - History of Present Illness Initial comments: 61 year old female presents to the emergency department with complaints on mid- low back pain. States she was seen at [facility] on September 08 and diagnosed with compression fractures. States she was given pain medication and instructed to follow up with her back surgeon. Patient states she has not contacted him yet and states the pain is worse and she is out of the Waverly they prescribed. Denies any new injury or fall. No loss of bowel or bladder control, saddle anesthesia, or foot drop. - Related Data Home Medications Medication Instructions Recorded Confirmed ALPRAZolam [Xanax] 0.5 mg PO HS 08/09/20 09/11/20 Folic Acid 1 mg PO DAILY 08/09/20 09/11/20 Ipratropium-Albuterol Nebulize 3 ml INHALATION RT-TID 08/09/20 09/11/20 [Duoneb 0.5 mg-3 mg/3 ml Soln] OLANZapine [ZyPREXA] 5 mg PO HS 08/09/20 09/11/20 buPROPion HCL [Wellbutrin XL] 150 mg PO BID 08/09/20 09/11/20 ondansetron HCL [Zofran] 8 mg PO Q6H PRN 08/09/20 09/11/20 methylPREDNISolone Dose Pack See Taper PO DAILY 09/11/20 09/11/20 [Medrol Dose Pack] Previous Rx's Medication Instructions Recorded Pantoprazole [Protonix] 40 mg PO BID 30 Days #60 tablet. 08/15/20 Sucralfate [Carafate] 1 gm PO ACHS 30 Days #30 tab 08/15/20 Fluconazole [Diflucan] 100 mg PO DAILY 7 Days #7 tab 09/05/20 Lidocaine Viscous [Xylocaine 30 ml PO TID 7 Days #300 ml 09/05/20 Viscous 2%] Mag Hydrox/Al Hydrox/Simeth 30 ml PO TID ml 09/05/20 [Maalox] Nystatin 100,000 Unit/ml Susp 3,000,000 unit PO TID 7 Days #300 09/05/20 [Mycostatin Oral Susp] ml diphenhydrAMINE ELIXIR [Benadryl 75 mg PO TID 7 Days #200 ml 09/05/20 Elixir] Meloxicam [Mobic] 7.5 mg PO DAILY #60 tab 09/09/20 Calcium Carbonate [Tums] 500 mg PO QID PRN chew 09/13/20 oxyCODONE-APAP 10-325MG [Percocet 1 each PO Q4H PRN tab 09/13/20 10-325 mg] Cyclobenzaprine [Flexeril] 10 mg PO TID PRN #15 tab 09/15/21 HYDROcodone/APAP 5-325MG [Waverly 5] 1 each PO Q6HR PRN #12 tab 09/15/21 Ibuprofen [Motrin] 600 mg PO Q8HR PRN #30 tab 09/15/21 Allergies Allergy/AdvReac Type Severity Reaction Status Date / Time gentamicin Allergy Anaphylaxis Verified 09/14/21 22:01 Review of Systems ROS Statement: Those systems with pertinent positive or pertinent negative responses have been documented in the HPI. ROS Other: All systems not noted in ROS Statement are negative. Past Medical History Past Medical History: Cancer, Hearing Disorder / Deafness Additional Past Medical History / Comment(s): back pain; "several tia's-Last TIA 1 1/2 YEARS AGO, pluerisy, migraines, past falls, "was told at [facility] she had non-alcoholic cirrhosis". lung cancer History of Any Multi-Drug Resistant Organisms: None Reported Past Surgical History: Back Surgery, Breast Surgery, Hysterectomy Additional Past Surgical History / Comment(s): back sx, neck sx. spleenectomy- d/t injury; benign R Breast lumpectomy, sinus sx Past Anesthesia/Blood Transfusion Reactions: No Reported Reaction Additional Past Anesthesia/Blood Transfusion Reaction / Comment(s): Pt hs clausterphobia Past Psychological History: Depression Smoking Status: Current some day smoker Past Alcohol Use History: None Reported Past Drug Use History: None Reported - Past Family History Mother Family Medical History: Cancer Additional Family Medical History / Comment(s): Father History Unknown: Yes Family Medical History: No Reported History Additional Family Medical History / Comment(s): Father was murdered General Exam Limitations: no limitations General appearance: alert, in distress (due to pain), other (position of comfort is side-lying to avoid direct pressure on spine) Head exam: Present: normal inspection Eye exam: Present: normal appearance. Absent: scleral icterus, conjunctival injection Neck exam: Present: normal inspection. Absent: tenderness, meningismus, full ROM (limited cervical ROM d/t previous surgery; baseline for patient), lymphadenopathy Respiratory exam: Present: normal lung sounds bilaterally. Absent: respiratory distress, wheezes, rales, rhonchi, stridor Cardiovascular Exam: Present: regular rate, normal rhythm, normal heart sounds. Absent: systolic murmur, diastolic murmur, rubs, gallop, clicks GI/Abdominal exam: Present: soft, normal bowel sounds. Absent: distended, tenderness, guarding, rebound, rigid Back exam: Present: paraspinal tenderness (diffuse mid-back pain), vertebral tenderness (tenderness upon palpation of thoracic spine) Neurological exam: Present: alert, oriented X3 Psychiatric exam: Present: anxious Skin exam: Present: warm, dry Course Vital Signs 09/14/21 09/15/21 21:55 02:35 Temperature 98.3 F 97.8 F Pulse Rate 89 85 Respiratory 18 20 Rate Blood Pressure 145/109 96/64 O2 Sat by Pulse 95 92 L Oximetry - Reevaluation(s) Reevaluation #1: 09/15/21 00:24 Patient reports some improvement in discomfort but states cannot go home because she is having too much difficulty getting around due to pain. Insists on another xray as her pain is worse. Explained that this is unnecessary without injury, however, patient feels this is important therefore it will be ordered. 09/15/21 02:30 Discussed findings from XR. Explained that there is a compression fracture present but it is of indeterminate age therefore she must follow up with her previous surgeon, but that this is not something we would admit to the hospital for. I also gave her contact information for a local provider. Also discussed the possibility of a developing pneumonia. Patient states she smoked heavily for many years and is often short of breath. Instructed to return to the or see her PCP if she develops a fever, chest pain, or difficulty breathing. Medical Decision Making - Medical Decision Making This is a 61 year old female with a history of multiple back surgeries who presents to the with complaints of back pain. Upon exam, patient is side- lying in position of comfort. She has thoracic vertebral tenderness, though no step-off palpable. She has a known compression fracture which was verified on Xray. No foot drop, saddle anesthesia, or loss of bowel or bladder control. Mobility is limited due to pain and worsens with position change. Patient was given Dilaudid and Norflex with improvement. Discussed importance of following up with a spine specialists for further evaluation and treatment. She is prescribed Waverly and Flexeril. Return parameters discussed in detail. Patient verbalizes understanding and agrees with this plan, though she would prefer hospital admission. Attending: Stephanie. - Radiology Data Radiology results: report reviewed, image reviewed Thoracic spine xray was obtained. Report was reviewed in its entirety. Impression per DR. Douglas is 1. Moderate into wedge-shape compression defect at approximately level of T9, age indeterminate. 2. Small amount of linear opacities in right lung, most prominent in the suprahilar region, suggests pneumonia versus aspiration. Disposition Clinical Impression: Thoracic back pain, Osteopenia Disposition: HOME SELF-CARE Condition: Stable Instructions (If sedation given, give patient instructions): Vertebral Compression Fracture (ED) Additional Instructions: Rest as needed. Avoid vigorous or strenuous activity, but maintain your mobility with frequent ambulation and gentle range of motion. You really need to see your surgeon or establish care with a local provider. Take Motrin if needed for pain. You are being prescribed Waverly to use sparingly. Flexeril is a muscle relaxer that may make you groggy so use caution when you take it. Return to the emergency department with any new, worsening, or concerning symptoms. Prescriptions: Cyclobenzaprine [Flexeril] 10 mg PO TID PRN #15 tab PRN Reason: Muscle Spasm Ibuprofen [Motrin] 600 mg PO Q8HR PRN #30 tab PRN Reason: Pain HYDROcodone/APAP 5-325MG [[place]ly 5] 1 each PO Q6HR PRN #12 tab PRN Reason: Pain Is patient prescribed a controlled substance at d/c from ED?: Yes When asked, does pt state using other controlled substances?: No If prescribed controlled substance>3 days was MAPS reviewed?: Prescribed <3 Days If opioid is for acute pain is fill amount 7 days or less?: Yes Referrals: Diwght Joshua MD [Primary Care Provider] - 1-2 days [facility] [Provider Group] - 1-2 days Time of Disposition: 02:52
== END 2021-09-15 03:44 | disposition home or self-care (01) ==
LOC: EC 21:04
DX: M54.6 Pain in thoracic spine (principal); M85.80 Other specified disorders of bone density and structure, unspecified site; F17.200 Nicotine dependence, unspecified, uncomplicated; Z88.1 Allergy status to other antibiotic agents
CPT/HCPCS: 72070; 99283; 96372; J2360; J1170 ×2

== ENCOUNTER → 2021-10-19 | Outpatient (CLI) | payer MEDICARE, OTHER ==
--- NOTE | 2021-10-19 15:59 | NM ---
EXAMINATION TYPE: NM bone scan whole body DATE OF EXAM: 10/19/2021 COMPARISON: 08/11/2020 CT. Thoracic spine radiograph 09/15/2021. DATE OF EXAM: 10/19/2021 2:47 PM CLINICAL INDICATION:Female, 61 years old with history of M54.50 LOW BACK PAIN; Delayed whole-body scanning was performed following the injection of 23.7 mCi Tc 99m MDP. Images acq uired 3 hours post injection. FINDINGS: Subtle radiotracer uptake is seen throughout the spine most pronounced at T8 but also at ar ound C7-T1 and the right aspect of L3. There is scattered degeneration uptake noted within the elbows AC joints, knees and left ankle, sacroiliac joints and left foot/ankle. IMPRESSION: 1. Subtle radiotracer uptake throughout the spine most pronounced at T8 and may correlate with compr ession deformity seen on recent radiograph. 2. Additional subtle uptake at C7-T1 may represent postsurgical changes and around L3 right pedicle. Correlation with cross-sectional imaging is recommended. If an occult fracture is suspected consider MRI to look for bone edema.
== END | disposition home or self-care (01) ==
LOC: RADNMMAIN 10:54
PROVIDERS: ATTEND Physical Medicine & Rehabilitation
DX: M54.6 Pain in thoracic spine (principal); M47.817 Spondylosis without myelopathy or radiculopathy, lumbosacral region; S22.070A Wedge compression fracture of T9-T10 vertebra, initial encounter for closed fracture; M43.16 Spondylolisthesis, lumbar region; M96.1 Postlaminectomy syndrome, not elsewhere classified; X58.XXXA Exposure to other specified factors, initial encounter
CPT/HCPCS: 78306; A9503

== ENCOUNTER → 2021-12-01 | Outpatient (CLI) | payer MEDICARE, OTHER ==
[2021-12-01 18:03] LABS: Basophils # (A) 0.04 X 10*3/uL (0.00-0.10); Basophils % (A) 0.4 %; Eosinophils % (A) 1.1 %; HCT 47.8 % (37.2-46.3); Immature Grans, Automated 0.2 %; Lymphocytes # (A) 3.64 X 10*3/uL (0.90-5.00); Lymphocytes % (A) 38.9 %; MCH 27.1 pg (27.0-32.0); MCHC 31.4 g/dL (32.0-37.0); MCV 86.4 fL (80.0-97.0); Mean Platelet Volume 9.5 fL (9.5-12.2); Monocytes # (A) 0.88 X 10*3/uL (0.20-1.00); Monocytes % (A) 9.4 %; NRBC Per 100 WBC 0 /100 WBCS (0.0-0.0); Neutrophils # (A) 4.68 X 10*3/uL (1.80-7.70); Platelet Count 492 X 10*3/uL (140-440); RBC 5.53 X 10*6/uL (4.10-5.20); RDW 15.9 % (11.5-14.5); WBC 9.36 X 10*3/uL (4.50-10.00)
[2021-12-01 18:27] LABS: INR 0.96 (0.90-1.11); Prothrombin Time 10.6 sec (9.9-11.9)
[2021-12-01 18:39] LABS: African American GFR (CKD) 109.8 (60.0-200.0); Anion Gap 11.9 mmol/L (10.00-18.00); BUN/Creat Ratio 18.45 Ratio (12.00-20.00); Blood Urea Nitrogen 11.9 mg/dL (9.0-27.0); Calcium 9.4 mg/dL (8.7-10.3); Carbon Dioxide 23.7 mmol/L (20.0-27.5); Non-African American GFR(CKD) 94.7 (60.0-200.0); Potassium 4.1 mmol/L (3.5-5.5)
== END | disposition home or self-care (01) ==
LOC: LABPAT 13:15
PROVIDERS: ATTEND Orthopaedic Surgery
DX: Z01.812 Encounter for preprocedural laboratory examination (principal); Z01.818 Encounter for other preprocedural examination
CPT/HCPCS: 80048; 85025; 85610; 86850; 86900; 86901; 87070; 93005

== ENCOUNTER → 2021-12-06 | Outpatient (CLI) | payer MEDICARE, OTHER ==
--- NOTE | 2021-12-06 08:44 | CT ---
EXAMINATION TYPE: CT thoracic spine wo con DATE OF EXAM: 12/06/2021 COMPARISON: Thoracic spine x-ray December 01, 2021 and older study September 15, 2021. CT chest August 11 HISTORY: Fracture of T8 CT DLP: 1234 mGycm Automated exposure control for dose reduction was used. FINDINGS: Osseous structures are demineralized. Moderate to severe compression type fracture at T8 level is red emonstrated. Sclerosis is present. Finding new from August 2020 but was present on September 15, 2021 x-rays . There is posterior bony projection from the inferior T8 vertebra into the anterior spinal canal sag ittal image 41 less prominent on the axial images. Spinal canal otherwise grossly preserved. Slight s coliotic curvature near the cervical thoracic junction on coronal images with partial visualization o f surgical change in the cervical spine. No new fracture is evident. Vertebral body heights and disc space heights are otherwise fairly well maintained. Mild multilevel anterior and lateral spurring. There is focal consolidation with air bronchograms centered right hilar level. Coronary artery calcif ication is present. Suspect small nonobstructing right renal calculi. IMPRESSION: Moderate to severe subacute or chronic compression fracture at T8 level redemonstrated. F inding new
== END | disposition home or self-care (01) ==
LOC: RADCTMAIN 06:59
PROVIDERS: ATTEND Orthopaedic Surgery
DX: S22.001A Stable burst fracture of unspecified thoracic vertebra, initial encounter for closed fracture (principal); X58.XXXA Exposure to other specified factors, initial encounter
CPT/HCPCS: 72128

== ENCOUNTER 2021-12-09 11:27 | Inpatient (IN) | payer MEDICARE, OTHER ==
--- NOTE | 2021-12-09 09:30 | P.HPOR ---
History of Present Illness H&P Date: 12/01/21 Chief Complaint: Thoracic back pain, debility, Fracture [facility] History and Physical Date of :[birth year] Age: 61 year Height: 5'1" Weight: 200 lbs BMI: 37.79 kg/m2 Occupation: Disabled VAS: 8 CHIEF COMPLAINT: T8 vertebral compression fracture DOI:08/21/2021 DOS: None regarding thoracic spine. Hx of cervical and lumbar fusions in the past Duration of current treatment regiment: 2 months HISTORY : Xrays New xrays taken in office Trauma or injury yes Work-Related No Pain description aching, burning, sharp. Location posterior Activity Modification yes Hand Dominance right TREATMENTS COMPLETED: 6 weeks of PT completed? Month and Year of last PT date? None recent No Physician recommended home exercise completed? Duration of HEP course: None No, limited due to pain Medications yes List: Percocet 10/325mg with mild relief of her symptoms. Alternative interventions Chiropractic: No Massage therapy: No R.I.C.E: No Brace: Yes (TLSO brace) How long was brace worn? Since 08/21/2021 Did it help? yes Injections No RFA: No SUBJECTIVE: Ms. Saxena presents to the office for an evaluation of their thoracic spine. Patient reports a aching, sharp thoracic pain ongoing since 08/21/2021 after sustaining a FFS, noting that she did lose consciousness and cannot recall the cause of the fall. Following the fall the patient does report that she did present to the emergency room where she was placed in a TLSO brace. Since the time of this fall she does report having increase thoracic pain about the line of her bra strap. Patient denies any thoracic symptoms prior to this fall. Patient denies any Overall the patient has seen a progressive increase in sympt oms since their onset. Ms. Saxena symptoms are exacerbated with any standing, ambulation, or high impact movements like walking up and down the stairs, due to this they notes that it is increasingly difficult for Ms. Saxena to complete many of their daily tasks. Patient is having severe sleep disturbances as well due to their ongoing pain and associated symptoms. Regarding treatments, the patient sahu s previously trialed her TLSO brace and Percocet 10/325mg both with mild relief of her symptoms. Patient denies trialing any other modalities at this time. Otherwise the patient denies any f/c/sob/cp, no incision concerns, no bladder or bowel retention/incontinence, no perineal numbness/tingling, and ambulates independently. Patient does report that she does have a history of lung cancer as well. The patients' past social, medical, family, surgical history, as well as review of systems, have been reviewed. Please refer to the Neurosurgery History and Physical form that has been scanned in to our electronic medical record system. 16 points review of systems completed and as stated in HPI, all other systems reviewed are negative. Social History: Reviewed, see appropriate section of the chart for details. P3 Social History: Smoking: current smoker P3 6 a day Alcohol: currently drinks alcohol P3 one a day Family History: Reviewed, see appropriate section of the chart for details. P2 Past Medical History: Reviewed, see appropriate section of the chart for details. P1 Current Medications: Rx: inhaler , Ref: 0 Rx: oxyCODONE-acetaminophen 10 mg-325 mg tablet Ref: 0 PHYSICAL EXAMINATION: General: Awake, alert, appropriate for age, in no acute distress. HEENT: No unusual neck masses around region of lateral neck triangle, thyroid, supraclavicular groove Extremities: Skin warm and dry without acute lesions, coloration, temperature, skin intact, no tenderness or erythema Integument: Hairy patches: ABSENT Dorsal skin dimples: ABSENT Cafe au lait spots: ABSENT Surgical incisions: NONE Palpation: Please see Pain drawing on Intake sheet for further detail. Midline spinal tenderness: Yes, pain with ballottement of T7 and T8 E6 Cervical Tenderness: No E6 Paralumbar tenderness: No E6 Perithoracic tenderness: No E6 Buttocks tenderness: No E6 Sacroiliac Tenderness: No POSTURAL and MUSCULO-SKELETAL EVALUATION: Coronal Balance: NEUTRAL Recumbent testing: Patient is able to lay flat on back Sagittal Balance: NEUTRAL Shoulder Profile: LEVEL Pelvic Girdle: LEVEL Neck ROM: RESTRICTED due to prior cervical fusion Lumbar ROM: RESTRICTED due to prior cervical fusion Shoulder ROM: Symmetrical Hip ROM: Symmetrical Knee ROM: Symmetrical Hands: Normal appearance, symmetrical Feet: Normal appearance, Symmetrical VASCULAR STATUS : LEFT RIGHT Wrist Pulses INTACT INTACT Pedal Pulses (Dors. pedis & post.tibialis) INTACT INTACT Color NORMAL NORMAL Edema Absent Absent NEUROLOGIC EXAMINATION: Mental Status:Awake and alert, fully oriented, with normal attention, concentration and memory, and fluent, appropriate speech. Cranial Nerves: I: Olfactory not tested. II: Visual acuity normal, no visual field deficit noted with confrontation. III,IV: Normal pupillary reflexes & intact extraocular movements without nystagmus. V,: Intact symmetrical facial sensation. VII: Intact symmetrical facial motor movement VIII: Hearing intact. IX,X: Intact gag, swallow, & normal voice. XI: Sternocleidomastoid, trapezius function intact. XII: Tongue midline with normal movements. L'hermitte's Sign: Negative / absent Spurling'Sign: Absent bilaterally. Cubital percussion test: Absent bilaterally. Perez-Tinel sign - Carpal region: Absent bilaterally. Straight Leg Raising: Absent bilaterally. Crossed straight leg raise: negative O8 MOTOR EXAM (0-5/5, N/T) UPPER EXTREMITY Shoulder Abduction Biceps Triceps Wrist Extension Hand Intrinsics Monitoring And Evaluation Advisor Right 5/5 5/5 5/5 5/5 5/5 5/5 Left 5/5 5/5 5/5 5/5 5/5 5/5 LOWER EXTREMITY Hip Flexion Knee Extension Knee Flexion DF PF EHL FHL Right 5/5 5/5 5/5 5/5 5/5 5/5 5/5 Left 5/5 5/5 5/5 5/5 5/5 5/5 5/5 REFLEXES(0-4/2, NT)Upper Extremity Lower Extremity Right 2 2 Left 2 2 Pathological Reflexes RIGHT LEFT Perez's Absent Absent Clonus Absent Absent Babinski Absent Absent # Indicates mechanical impairment Muscle appearance: Symmetrical, without signs of atrophy or dystrophy. Sensory system (0-4, N/T) Test type RU NASEEM RL LL Joint-Position 2 2 2 2 Vibration 2 2 2 2 Pain & LT sense 2 2 2 2 Dermatomal Deficit: None None None None Gait and Functional Evaluation: Ambulatory aids: Independent Romberg's test: Intact bilaterally Toe heel walk / heel-toe walk intact while maintaining satisfactory balance? yes Squatting/straightening w/o assistance to a min of 60 degree knee flexion? No, limited due to pain. Single leg stance: not intact Trendelenburg sign negative bilaterally Hand and finger dexterity intact bilaterally? yes Disdiadochokinesis examination negative bilaterally? yes RADIOGRAPHIC STUDIES: XRay taken on 12/01/21 of Thoracic Spine: images are reviewed with thoracic spine from today and compared to previous x- rays on 09/15/2021. Since the previous x-rays there is been further collapse of the T8 burst fracture with kyphotic alignment increased kyphosis and increased pain for the patient. There is no overt instability however there is potential for instability given the nature of the fracture as well as the kyphosis that has developed over the last couple of weeks. When compared to the previous fracture x-ray on 09/15/2021 there is now 75% collapse of the T8 vertebral body versus 50% collapse previously along with increase in kyphosis of 15 to a kyphotic deformity at this level of around 30 versus 20 previously. There is osteopenia noted throughout the thoracic spine visualized. There are postoperative changes in the visualized cervical spine. No other fractures or dislocations are noted at this time. Repeat CT would be better visualization. IMPRESSION: It was my pleasure to have seen and examined Na. I reviewed the patient's clinical syndrome, physical findings, and imaging studies during the appointment today. It is my impression that the patient has a diagnosis of. 1. T8 burst fracture 2. osteoporosis 3. Mechanical back pain I outlined the natural course history without intervention and various interventional options. PLAN: Based on my findings I suggest the following course of action: - Referred to the [facility] fragility fracture clinic for further evaluation and treatment of her osteoporosis. - Ordered a CT scan without contrast of the thoracic spine for pre-operative planning. - Home Exercise: The patient was given a packet, counselled and directed to participate in a home exercise program for thier current condition. This should also consist of 30 min twice daily of either walking or stationary bike/recumbant biking for cardiovascular health and/or low weight, high repetition resistive exercises along with the prescribed "spine rehab" packet given. They should limit their lifting bending and twisting and use good body mechanics when doing such movement in attempts to mitigate any further aggravation to their symptoms. If any of these exercises causes increased pain or discomfort they are instructed to modify the exercise so that it does not create pain, or to stop the particular exercise that causes them discomfort and consult with their PT about alternatives. -Health Maintenance: Health maintenance handout given to the patient which covers topics such as nutritional support, supplementation for symptomatic relief as well as for bone health with vitamin D and calcium, smoking cessation, weight loss counselling and importance of daily exercise with examples and references for each. - In our visit today, the patient and I have had a change to discuss a plan for their weight management. They have decided to make a change in their life and would like to move forward with weight loss goals. We have discussed different strategies for weight loss including Diet, exercise, medications, and invasive interventions. The patient will keep track of their diet and exercise in a journal that they will bring for review at their next appointment. They have been provided resources in our Health Maintenance Program handout regarding weight loss as well as nutrition. We will check back with them at their next appointment and see how they are progressing. Time Spent: 10 min - Supplements program given and patient expressed understanding. -I discussed treatment options with the patient, including operative and non- operative options, and they have elected to proceed with the following surgical procedure: thoracic (T6-T10) MIS Stabilization The indications, risks, benefits, and alternatives to surgery were discussed with the patient and family at length. Specifically (but not limited to) the risks of infection, stiffness, recurrence of symptoms, need for revision surgery, local numbness, neurovascular injury, and blood clots were discussed. The patient's questions were answered. The decision to proceed was made. Consent will be obtained for the procedure. Spine Surgery Risk Review Ms. Saxena is presenting for evaluation of thoracic pain. It was my pleasure to have seen and examined Ms. Saxena. In our visit today we have had a chance to go over subjective complaints, physical examination findings and treatments including the natural course history without intervention and various interventional options. The patients imaging demonstrates: XRay taken on 12/01/21 of Thoracic Spine: images are reviewed with thoracic spine from today and compared to previous x- rays on 09/15/2021. Since the previous x-rays there is been further collapse of the T8 burst fracture with kyphotic alignment increased kyphosis and increased pain for the patient. There is no overt instability however there is potential for instability given the nature of the fracture as well as the kyphosis that has developed over the last couple of weeks. When compared to the previous fracture x-ray on 09/15/2021 there is now 75% collapse of the T8 vertebral body versus 50% collapse previously along with increase in kyphosis of 15 to a kyphotic deformity at this level of around 30 versus 20 previously. There is osteopenia noted throughout the thoracic spine visualized. There are postoperative changes in the visualized cervical spine. No other fractures or dislocations are noted at this time. Repeat CT would be better visualization. On physical exam, Ms. Saxena demonstrates midline thoracic pain with severely restricted ROM. I have explained to the patient that as their condition progresses it will cause further neurological deficits and eventual paralysis. Based on the patients imaging, physical exam, and the rapid progression and disabling nature of their symptoms, at this time I recommend surgery in the form or a: thoracic (T6-T10) MIS Stabilization . I discussed the risk and benefits of this procedure at length with Ms. Saxena. The patient agreed to considered pursuing the procedure abovementioned. Prior to surgery, she should follow up with her PCP (Cardio, ID, IM etc) for clearance. Questions were invited and answered, and the patient wishes to proceed as outlined below. Currently, I am recommendin.thoracic (T6-T10) MIS Stabilization 2.Follow up with PCP for surgical clearance 3.Review of surgical risks and benefits as well as an educational packet on the proposed surgical procedure. Risks: All surgical procedures come with inherent risks, including those related to positioning, anesthesia, intraoperative findings, and postoperative complications. It is important to understand that surgery does not come with any guarantee of a successful outcome as complications and adverse events are always possible. The patient was given a handout in office today discussing the surgical procedure and risks associated with the intervention, both of which were discussed with the patient. These risks include but are not limited to the following: * Experiencing same, different or even worse symptoms in back, neck, arms, or legs compared to before surgery. Requiring further surgery or other forms of treatment presently or at some time in the future at same or other levels of the intended spine surgery. On an extreme but fortunately relatively rare basis severe complication such as blindness, stroke, heart attack, temporary and/or permanent nerve injury, paralysis, coma, or may occur, sometimes without known explanation. Surgical complications may include but are not limited to risk of i nfection, fluid accumulation in the surgical dissection site, including a seroma or hematoma, that requires additional surgery, wound drainage, bleeding, new numbness or weakness, vision changes/loss, spinal fluid leakage, non-healing and/or infected incision, headaches, difficulty or inability to swallow, hoarseness, hemopneumothorax, pneumothorax, impotence, retrograde ejaculation, vaginal dryness; injury to nerves, spinal cord, blood vessels, lymphatics or other vital organs (i.e., bowel injury, injury to the great vessels); heterotopic bone formation; complications related to the hardware such as screws, rods, cages including misplaced hardware, device failure, instrumentation at the wrong spine level, hardware fracture/breakage, or hardware loosening; vertebral failure of the spinal column above or below the newly placed hardware; retained surgical instrumentations or devices and the need for further surgery. * Medical risks of the planned spine surgery include but are not limited to generalized Infections to the whole body or local areas outside of the surgical site (sepsis), heart attack, bleeding, anaphylaxis, meningitis, seizure, epilepsy, hearing loss, burn frye, laceration of the head or other areas of the body, bruising, hypersensitivity of the skin, bladder over distension; allergic reaction; shoulder injury related to positioning; fat, blood and air clots to other areas of the body like heart, lungs, brain; failure of internal organs such as lungs, kidneys, liver and excessive bleeding. If blood transfusions are necessary, note that transfusions may c ause intolerance reactions such as anaphylaxis or other complex reactions. Despite best efforts, the results of spine surgery might not heal in terms of bone, soft tissues such as skin, fascia, ligaments, and joints. Additionally, in order to achieve best possible results, spine surgery may be carried out beyond the initially planned levels and involve decompression, fusion including insertion of hardware at levels other than the original intended area of surgical interest change some portions of the procedure in order to ensure the best possible outcomes. With spine surgery and spinal fusion, there are different off label uses of instrumentation (devices, implants and hardware) as well as biological substances (bone morphogenic proteins, demineralized bone matrix) as well as using extra bone from allograft sources (i.e. cadaver bone) or autograft (iliac crest bone, ribs, or the spine itself). The patient has been given information about these practices and their inherent risks and benefits. [facility] is an educational center that serves as a training facility for neurosurgical and orthopedic ASSISTANT DIRECTOR OF NURSING and Nursing students. Physician assistants are medically trained surgical providers who function in the outpatient, inpatient, and operating room setting under the direct supervision of the attending surgeon. [facility] has multiple operating rooms with single and overlapping rooms running daily. They currently function under the required guidelines as produced by the [facility] Finance Committee with regards to the overlapping rooms and will continue to comply with changes to this policy as they occur. The requirements include and are complied with as follows: (1) the critical portions of the overlapping rooms will not occur at the same time, (2) the attending physician will be physically present during the critical portions of the procedure and immediately available during the entire case, and (3) a back-up attending is designated should the primary attending not be immediately available. The patient has had a chance to review all the listed information, has been given print outs detailing this information, and has had all his/her questions answered to their satisfaction. It was my pleasure to have seen and examined Ms. Saxena. In our visit today we have had a chance to go over my understanding of our patient's current condition, the natural course history without intervention and various interventional options. Questions were invited and answered, and the patient wishes to proceed as outlined above. I have seen and examined the patient for 25 minutes and we have spent more than 50% of the time in repeat and detailed counseling about the patient's condition, its natural course history with out and as much as can be predicted with surgery and re-review of various surgical treatment options. In conclusion, Ms. Saxena requested we proceed with the above suggested surgery and are willing to accept risks and limitations of the suggested surgery as nature of the disease process and our best attempts at treatment for the condition. Thank you again for allowing us to be part of your patient's care. Please don't hesitate to contact me if you have any further questions. Signed and authenticated by: Brannon Martinez [facility] Complex and Minimally Invasive Spine Surgery [address] [place] [id number] Past Medical History Past Medical History: Cancer, COPD, CVA/TIA, Hearing Disorder / Deafness, Liver Disease, Memory Impairment, Musculoskeletal Disorder, Osteoarthritis (OA) Additional Past Medical History / Comment(s): back pain; "several tia's-not sure when last one was-memory issues, hx. 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 lung cancer-had chemo & radiation, currently in remission History of Any Multi-Drug Resistant Organisms: None Reported Past Surgical History: Back Surgery, Breast Surgery, Cholecystectomy, Hysterectomy Additional Past Surgical History / Comment(s): back fusion, cervical fusion. spleenectomy-d/t injury; benign R Breast lumpectomy, sinus sx Past Anesthesia/Blood Transfusion Reactions: No Reported Reaction Additional Past Anesthesia/Blood Transfusion Reaction / Comment(s): Pt hs claustrophobia, no transfusion reactions Smoking Status: Current every day smoker - Past Family History Mother Family Medical History: Cancer Additional Family Medical History / Comment(s): Father History Unknown: Yes Family Medical History: No Reported History Additional Family Medical History / Comment(s): Father was murdered Medications and Allergies Home Medications Medication Instructions Recorded Confirmed Type ALPRAZolam [Xanax] 0.5 mg PO HS 08/09/20 12/08/21 History Ipratropium-Albuterol Nebulize 3 ml INHALATION RT-TID PRN 08/09/20 12/08/21 History [Duoneb 0.5 mg-3 mg/3 ml Soln] buPROPion HCL [Wellbutrin XL] 150 mg PO BID 08/09/20 12/08/21 History Cyclobenzaprine [Flexeril] 10 mg PO TID PRN #15 tab 09/15/21 12/08/21 Rx Albuterol Inhaler [Ventolin Hfa 1 - 2 puff INHALATION Q6H PRN 12/08/21 12/08/21 History Inhaler] oxyCODONE-APAP 10-325MG [Percocet 1 each PO Q6H PRN 12/08/21 12/08/21 History 10-325 mg] Allergies Allergy/AdvReac Type Severity Reaction Status Date / Time gentamicin Allergy Anaphylaxis Verified 12/08/21 14:14 Physical Examination Osteopathic Statement: *. No significant issues noted on an osteopathic structural exam other than those noted in the History and Physical/Consult.
[~2021-12-09 11:27] MED LIST changes: +ACETAMINOPHEN TAB 500 MG TAB PO PRN; +DEXAMETHASONE SOD PHOSPHATE 4 MG/ML 1 ML VIAL IV ONE; +GABAPENTIN 300 MG CAP PO PRN; -LIDOCAINE 1% INJ 10MG/ML (20 ML MDV) SQ ONE; +ONDANSETRON 4 MG/2 ML VIAL IVP ONE; +ONDANSETRON 4 MG/2 ML VIAL IVP PRN; +TRANEXAMIC ACID IN NACL,ISO-OS 1,000 MG in SALINE 1 100ML.BAG IVPB PRN
[2021-12-09] MEDS ORDERED: LACTATED RINGERS 1,000 ML IV ONE ×2 (12:10→15:16)
[2021-12-09] MEDS ORDERED: fentaNYL (PF) 50 MCG/ML 2 ML AMP IVP ONE (14:31)
--- NOTE | 2021-12-09 14:49 | P.PN ---
Progress Note - Text Progress Note Date: 12/09/21 History and Physical UPDATE I have seen and examined the patient and reviewed the history and physical. There appear to be no significant changes in the patient's current medical status as outlined in the current History and Physical.
[2021-12-09] MEDS ORDERED: PROPOFOL 10 MG/ML 20 ML VIAL IV ONE (15:12)
[2021-12-09] MEDS ORDERED: MIDAZOLAM 2 MG/2 ML VIAL ONE (15:12)
[2021-12-09] MEDS ORDERED: PHENYLEPHRINE-0.9% NACL SYG 1,000 MCG/10 ML SYRINGE ONE (15:12)
[2021-12-09] MEDS ORDERED: fentaNYL (PF) 50 MCG/ML 2 ML AMP ONE (15:12)
[2021-12-09] MEDS ORDERED: LIDOCAINE 2% INJ 20 MG/ML (2 ML VIAL) ONE (15:12)
[2021-12-09] MEDS ORDERED: SUCCINYLCHOLINE CHLORIDE 200 MG/10 ML VIAL IV ONE (15:12)
[2021-12-09] MEDS ORDERED: THROMBIN (BOVINE) 5,000 UNIT VIAL TOPICAL ONE (15:12)
[2021-12-09] MEDS ORDERED: TRANEXAMIC ACID IN NACL,ISO-OS 1,000 MG/100 ML BAG ONE (15:12)
[2021-12-09] MEDS ORDERED: HYDROmorphone (PF) 1 MG/ML ONE (15:12)
[2021-12-09] MEDS ORDERED: LIDOCAINE 4% LTA KIT (4 ML) TOPICAL ONE (15:12)
[2021-12-09] MEDS ORDERED: GELATIN SPONGE,ABSORB (SMALL) 1 EACH SPONGE TOPICAL ONE (15:13)
[2021-12-09] MEDS ORDERED: BUPIVACAINE (PF) 0.25% 30 ML VIAL SQ ONE (15:13)
[2021-12-09] MEDS ORDERED: ceFAZolin 3,000 MG in SODIUM CHLORIDE 0.9% IRRIGATIO 3,000 ML IRRIGATION ONE (15:16)
[2021-12-09] MEDS ORDERED: HYDROmorphone 0.5 MG/0.5 ML SYRINGE IVP PRN (18:12)
[2021-12-09] MEDS ORDERED: bisacodyL 10 MG SUPP RECTAL PRN (18:12)
[2021-12-09] MEDS ORDERED: ONDANSETRON 4 MG/2 ML VIAL IVP PRN (18:12)
[2021-12-09] MEDS: HYDROmorphone 0.5 MG/0.5 ML SYRINGE IVP PRN ×2 (18:18→19:01)
[2021-12-09] MEDS: LACTATED RINGERS 1,000 ML IV SCH (18:25)
--- NOTE | 2021-12-09 18:31 | P.PN ---
Progress Note - Text Progress Note Date: 12/09/21 Postop: . Patient seen and examined they are doing well. Their pain is under control at this time. They are moving all 4 extremities without any issues. Vital signs are stable.. They are currently recovering and will be transferred to the floor once deemed stable by the PACU team and anesthesiologist. No Other issues at this time they deny fever chills shortness of breath or chest pain. Medical management pending Continue with intravenous fluids, pain medication, muscle relaxers, home medication Soft diet to start to advance as tolerated We will evaluate the patient in the morning.
[2021-12-09] MEDS: PREGABALIN 75 MG CAP PO SCH (20:06)
[2021-12-09] MEDS: HYDROmorphone 1 MG/ML 1 ML SYRINGE IVP PRN ×2 (20:06→23:54)
--- NOTE | 2021-12-09 20:38 | CT ---
EXAMINATION TYPE: CT thoracic spine wo con DATE OF EXAM: 12/09/2021 COMPARISON: 12/06/2021 HISTORY: Stabilization of T6--T10 CT DLP: 1238.8 mGycm Automated exposure control for dose reduction was used. Images obtained from the level of T1-T12 with no contrast. There is 50% compression deformity of T8 vertebral body. There is kellee and screws fusing posteriorly t he thoracic spine from T6 to T10. There is metal artifact that obscures the spinal canal at the surge ry site. There is infiltrate and atelectasis right lower lobe. There is minimal atelectasis and pleur al thickening left lower lobe. There is a mild fragment extension of the posterior inferior endplate of T6 into the spinal canal and 35% narrowing of the canal. Unchanged. IMPRESSION: Posterior fusion surgery. Compression fracture of T6 without progression compared to old exam. Bilateral paraspinal lower lobe pulmonary infiltrates and atelectasis which are increased compared to old CT scan.
--- NOTE | 2021-12-09 21:54 | FL ---
EXAMINATION TYPE: FL guidance operating room, XR thoracic spine 2V DATE OF EXAM: 12/09/2021 CLINICAL HISTORY: Thoracic spine fracture. TECHNIQUE: Fluoroscopy. Intraoperative 2 views thoracic spine. COMPARISON: Thoracic spine x-ray 3 days ago.. FINDINGS: Fluoroscopic guidance was provided during T6-T10 fusion procedure performed by Dr. Acosta son. A total of 50 seconds of fluoroscopic time was utilized during the procedure and 7 spot images was acquired. Intraoperative images acquired show placement of posterior interpedicular rods and screws bilaterally at T6 and T7 level superiorly through the T9 and T10 levels inferiorly. IMPRESSION: As Above.
[2021-12-09] MEDS ORDERED: RX INFO: IV CONTRAST WAS GIVEN 1 EACH MISC MISCELLANE PRN (23:31)
[2021-12-09] MEDS: ALPRAZolam 0.5 MG TAB PO SCH (23:51)
[2021-12-09] MEDS: SODIUM CHLORIDE 0.9% 1,000 ML IV SCH (23:52)
--- NOTE | 2021-12-10 01:13 | CT ---
EXAMINATION TYPE: CT chest w con DATE OF EXAM: 12/09/2021 COMPARISON: HISTORY: hypoxia post back surgery today. chart states history of lung CA CT DLP: 445.50 mGycm Automated exposure control for dose reduction was used. CONTRAST: Performed with IV Contrast, patient injected with 100ml mL of Isovue 300. Images obtained from the thoracic inlet to the diaphragm with the IV contrast. There is some airspace consolidation and atelectasis in the right lower lobe extending to the right p ulmonary hilum. Heart is shifted to the right side. The trachea is intact. No mediastinal adenopathy. Thoracic aorta is atheromatous. No aneurysm or dissection. No filling defects seen in the pulmonary arteries. There is some mild atelectasis left posterior lung base. There is posterior fusion surgery in the thoracic spine with T8 compression deformity 50%. The sternu m is intact. There are posterior skin honorio from the recent surgery. IMPRESSION: There is left lower lobe mild atelectasis. There is extensive infiltrate and volume loss in the right lower lobe with shift of heart to the righ t side and also present on old exam. There is improvement in the pleural fluid compared to old exams. Appearance is consistent with treated lung cancer. No evidence of pulmonary embolism.
[2021-12-10] MEDS: LACTATED RINGERS 1,000 ML IV SCH (03:55)
[2021-12-10] MEDS: HYDROmorphone 1 MG/ML 1 ML SYRINGE IVP PRN ×6 (03:58→20:38)
--- NOTE | 2021-12-10 05:33 | CONS ---
CONSULTATION HISTORY OF PRESENT ILLNESS: Na Saxena is a 61-year-old white female for medical management consult. Status post thoracic burst fracture surgery with Dr. Bautista. No chest pain or shortness of breath. No lightheadedness, dizziness, syncope. PHYSICAL EXAMINATION: VITAL SIGNS: Stable, afebrile. CARDIOVASCULAR: S1, S2. LUNGS: Clear. GI: Soft. HEMATOLOGY: Negative Homans. PSYCH: Fair mood and affect. NEUROLOGIC: Alert and oriented x3. Medications as above. Reviewed and ordered. ASSESSMENT: T8 burst fracture, osteoporosis, mechanical back pain, surgical repair. Prognosis guarded. Continue home medications. Follow up tomorrow in the office. MMODL / IJN: [id number] /
[2021-12-10] MEDS: PREGABALIN 75 MG CAP PO SCH ×2 (07:21→20:38)
[2021-12-10] MEDS: buPROPion XL 150 MG TAB.ER.24H PO SCH ×2 (07:22→20:38)
--- NOTE | 2021-12-10 07:42 | P.OP ---
Date of Procedure: 12/09/21 Preoperative Diagnosis: 1. T8 burst fracture 2. Thoracic mechanical back pain Postoperative Diagnosis: 1. T8 burst fracture 2. Thoracic mechanical back pain Procedure(s) Performed: 1. T6-T10 segmental instrumentation (51603) 2. Open treatment T8 burst fracture (67364) 3. [place] navigation for screw placement (32142) 4. Use of intraoperative neuromonitoring Implants: -Nikolas [place] screw and kellee system Anesthesia: GETA Surgeon: Brannon Bautista Proc Tech #1: Gissel Salamanca Estimated Blood Loss (ml): 100 IV fluids (ml): 1,200 Urine output (ml): 250 Pathology: none sent Condition: stable Disposition: PACU Indications for Procedure: Ms. Saxena is presenting for evaluation of thoracic pain. It was my pleasure to have seen and examined Ms. Saxena. In our visit today we have had a chance to go over subjective complaints, physical examination findings and treatments including the natural course history without intervention and various interventional options. The patients imaging demonstrates: XRay taken on 12/01/21 of Thoracic Spine: images are reviewed with thoracic spine from today and compared to previous x-r ays on 09/15/2021. Since the previous x-rays there is been further collapse of the T8 burst fracture with kyphotic alignment increased kyphosis and increased pain for the patient. There is no overt instability however there is potential for instability given the nature of the fracture as well as the kyphosis that has developed over the last couple of weeks. When compared to the previous fracture x-ray on 09/15/2021 there is now 75% collapse of the T8 vertebral body versus 50% collapse previously along with increase in kyphosis of 15 to a kyphotic deformity at this level of around 30 versus 20 previously. There is osteopenia noted throughout the thoracic spine visualized. There are postoperative changes in the visualized cervical spine. No other fractures or dislocations are noted at this time. Repeat CT would be better visualization. On physical exam, Ms. Saxena demonstrates midline thoracic pain with severely restricted ROM. I have explained to the patient that as their condition progresses it will cause further neurological deficits and eventual paralysis. Based on the patients imaging, physical exam, and the rapid progression and disabling nature of their symptoms, at this time I recommend surgery in the form or a: thoracic (T6-T10) MIS Stabilization . I discussed the risk and benefits of this procedure at length with Ms. Saxena. The patient agreed to considered pursuing the procedure abovementioned. Prior to surgery, she should follow up with her PCP (Cardio, ID, IM etc) for clearance. Questions were invited and answered, and the patient wishes to proceed as outlined below. Currently, I am recommendin.thoracic (T6-T10) MIS Stabilization 2.Follow up with PCP for surgical clearance 3.Review of surgical risks and benefits as well as an educational packet on the proposed surgical procedure. Description of Procedure: The patient was seen and examined in the preoperative area. All preoperative protocols were followed. Informed consent was obtained risks and benefits of the procedure were discussed at length. Risks including bleeding infection damage to the surrounding tissue and risk of reoperation were discussed with the patient. Risk of anesthesia up to and including was a discussed with the patient. These are outlined in the risk review. They were willing to accept these risks and all of the risks of surgery. The patient was given a weight- based dose of antibiotics in the form of 2 g Ancef. The patient was seen and evaluated by the anesthesia team who deemed them fit for surgery. The site was marked, the patient was willing to proceed with the procedure. The patient was transferred to the operative suite by the Department of anesthesia. They were then drifted off to sleep by the department anesthesia and GETA was performed. The patient tolerated this well. [Llanes catheter was placed by nursing staff, atraumatically]. Once confirmation of lines and ventilation the patient was transferred to a [prone Martin table very carefully]. All bony prominences including wrists, elbows, axilla, chest, hips, and thighs, and feet were padded very well. Special attention was paid to the genitalia and these were padded accordingly. SCDs were placed on bilateral lower extremities and were connected. Arms were well padded and placed tucked at her side thumbs down and well-padded. Once in position, again we confirmed good ventilation capabilities and that lines were running appropriately. The patient's thoracic spine was then exposed. 1010s were placed outlining the incision site. Standard alcohol was used to clean the incision site and allowed to dry. C-arm was used to biomark the patient and confirm level for incision which was marked with a skin marker. Operative briefing was performed with all teams and everyone in agreement to proceed. The patient was then prepped and draped in a normal sterile fashion. Timeout was then performed and all parties were in agreement with the procedure to be performed. [place] 3D navigation was used to obtain intraoperative CT scan of levels of interest. Once this was accomplished it was confirmed to be accurate. Navigated [place] was then used to target pedicles T6-T10 b/l skipping T8 due to fracture. Once targeted, a wire was placed through Jamshidi. Perfect scalpal was then placed over a wire to open up around the screw tract and wire measured for screw length. We then used Navigated screw mechanic driver to placed measured screws into pedicles. Lateral flouro was used also for accuracy. Once all screws were placed we checked them on AP imaging and they were safe. Neuromonitoring remained stable through placement. Once screws placed, rods were selected and bent accordingly and placed subfacially through all screw heads b/l. Set screws were then placed and final tightened. Final images s howed good placement of hardware, good reduction of fracture. The wounds were copiously irrigated with NSS. Deep facia closed with 0 PDS. Superficial subq closed with 2-0 vicryl and skin closed with honorio, wounds approximated well. They were cleaned and then dressed sterilly with optifoam dressings The patient was transferred back to their hospital bed atraumatically. Patient was then awakened and extubated by the department of anesthesia having tolerated the procedure very well with no complications. They were transferred to the postoperative care unit in stable condition.
--- NOTE | 2021-12-10 10:26 | P.PN ---
Subjective Progress Note Date: 12/10/21 Principal diagnosis: 1. T8 burst fracture 2. Thoracic mechanical back pain Patient was seen at bedside this morning sitting up in chair with back brace on. Patient says she did get up with physical therapy this morning and move from bed to chair. Patient says she was in a lot of pain during her transitions from lying in bed to seated and from seated to standing up. Patient says she did use walker when going to chair. Patient says she feels that she needs one more nig ht in the hospital for going home. Patient states most the pain is in her spine at this time. Patient denies any radiation of pain. Patient denies chest pain, fever, shortness of breath, nausea, vomiting, change in vision, loss of bowel/bladder control. Objective - Vital Signs Vital signs: Vital Signs Temp 97.5 F L 12/09/21 20:12 Pulse 76 12/09/21 22:00 Resp 16 12/09/21 20:12 BP 126/84 12/09/21 22:00 Pulse Ox 76 L 12/09/21 21:45 FiO2 Intake & Output 12/09/21 12/10/21 12/10/21 18:59 06:59 18:59 Intake Total 2251 Output Total 300 Balance 1950 Weight 95 kg Intake: IV 2251 ceFAZolin 2 gm In Sodium 100 Chloride 0.9% 50 ml @ 100 mls/hr IVPB ONCE PRN Rx# :[id number] Output: Urine 200 Estimated Blood Loss 100 - Exam Dressings present on spine. Negative for any fluctuance/purulence. Sensation is equal, symmetric, bilaterally intact throughout upper and lower extremities. TTP over incisions on spine. NTTP throughout rest of exam. Patient has full range of motion in bilateral upper and lower extremities on exam. 5/5 in all major motor groups in upper and lower extremities bilaterally. Neurovascular status is intact. Radial pulses intact, 2+ bilaterally. Cap refill under 3 seconds in digits in upper extremities. Negative Homans bilaterally. Negative Matt bilaterally. Negative clonus bilaterally. Assessment and Plan Assessment: 1. T8 burst fracture; Thoracic mechanical back pain - Postop day 1 status post T6 to T10 segmented instrumentation; open treatment T8 burst fracture Plan: 1. T8 burst fracture; Thoracic mechanical back pain - surgery performed yesterday, , 12/09/2021 - T6 to T10 segmented instrumentation; open treatment T8 burst fracture. Patient stable at bedside this morning. Patient in moderate amount of pain. pull ng. We plan to keep patient tonight for further pain control and plan for discharge home with health services tomorrow, 12/11/2021. 2. Appreciate medical management 3. Pain management - OxyIR; Flexeril; Lyrica; IV meds only if necessary 4. DVT prophylaxis - mechanical 5. GI prophylaxis - Senna 6. PT/OT - weightbearing as tolerated with walker; brace on while up and about 7. Encourage incentive spirometer use 8. Discharge planning - discharge home with health services tomorrow, 12/11/2021 Time with Patient: Less than 30
[2021-12-10 10:33] LABS: Basophils # (A) 0.01 X 10*3/uL (0.00-0.10); Basophils % (A) 0.1 %; Eosinophils # (A) 0 X 10*3/uL (0.04-0.35); Eosinophils % (A) 0 %; HCT 38.5 % (37.2-46.3); HGB 11.9 g/dL (12.0-15.0); Immature Grans, Automated 0.4 %; Lymphocytes # (A) 1.69 X 10*3/uL (0.90-5.00); Lymphocytes % (A) 11.9 %; MCH 28.1 pg (27.0-32.0); MCHC 30.9 g/dL (32.0-37.0); MCV 90.8 fL (80.0-97.0); Monocytes # (A) 1.42 X 10*3/uL (0.20-1.00); NRBC Per 100 WBC 0 /100 WBCS (0.0-0.0); Neutrophils % (A) 77.6 %; Platelet Count 387 X 10*3/uL (140-440); RBC 4.24 X 10*6/uL (4.10-5.20); RDW 16.1 % (11.5-14.5); WBC 14.18 X 10*3/uL (4.50-10.00)
[2021-12-10 11:58] LABS: ALT 42 U/L (8-44); AST 57 U/L (13-35); African American GFR (CKD) 111.2 (60.0-200.0); Albumin 3.4 g/dL (3.8-4.9); Albumin/Globulin Ratio 1.43 (1.60-3.17); Alkaline Phosphatase 96 U/L (41-126); BUN/Creat Ratio 21.61 Ratio (12.00-20.00); Blood Urea Nitrogen 13.4 mg/dL (9.0-27.0); Calcium 8.5 mg/dL (8.7-10.3); Chloride 105 mmol/L (96-109); Globulin 2.4 g/dL (1.6-3.3); Glucose 187 mg/dL (70-110); Potassium 4.6 mmol/L (3.5-5.5); Sodium 139 mmol/L (135-145); Total Bilirubin <0.15 mg/dL (0.30-1.20); Total Protein 5.7 g/dL (6.2-8.2)
[2021-12-10] MEDS: SODIUM CHLORIDE 0.9% 1,000 ML IV SCH (15:47)
[2021-12-10] MEDS: ALPRAZolam 0.5 MG TAB PO SCH (20:38)
[2021-12-11] MEDS: SODIUM CHLORIDE 0.9% 1,000 ML IV SCH (00:19)
[2021-12-11] MEDS: LACTATED RINGERS 1,000 ML IV SCH (01:26)
[2021-12-11 04:44] LABS: Glucose,Whole Blood 138 mg/dL (70-110)
[2021-12-11] MEDS: PREGABALIN 75 MG CAP PO SCH ×2 (08:15→20:15)
[2021-12-11] MEDS: buPROPion XL 150 MG TAB.ER.24H PO SCH ×2 (08:16→20:16)
--- NOTE | 2021-12-11 10:49 | P.PN ---
Subjective Progress Note Date: 12/11/21 Principal diagnosis: 1. T8 burst fracture 2. Thoracic mechanical back pain Patient was seen at bedside this morning lying in semirecumbent position. Patient says she did get up with physical therapy yesterday morning and moved from bed to chair. Patient says she was in a lot of pain during her transitions from lying in bed to seated and from seated to standing up. Patient says she did use walker when going to chair. Patient says she has urinated a few times since surgery. Patient says she has not had a bowel movement yet, however, patient says she has been passing gas. Patient states most the pain is in her spine at this time. Patient denies any radiation of pain. Patient denies chest pain, fever, shortness of breath, nausea, vomiting, change in vision, loss of bowel/bladder control. Objective - Vital Signs Vital signs: Vital Signs Temp 98.9 F 12/11/21 06:10 Pulse 91 12/11/21 04:36 Resp 16 12/11/21 06:10 BP 94/63 12/11/21 04:36 Pulse Ox 93 L 12/11/21 06:10 FiO2 Intake & Output 12/10/21 12/11/21 12/11/21 18:59 06:59 18:59 Intake Total 1202 1000 Balance 1202 1000 Intake: Intake, IV Titration 610 400 Amount Sodium Chloride 0.9% 1, 600 400 000 ml @ 50 mls/hr IV . Q20H EDEN Rx#:[id number] ceFAZolin 2 gm In Sodium 10 Chloride 0.9% 50 ml @ 100 mls/hr IVPB Q8HR EDEN Rx# :[id number] Oral 592 600 Other: Voiding Method Indwelling Catheter Toilet # Voids 2 - Exam Dressings present on spine. Negative for any fluctuance/purulence. Sensation is equal, symmetric, bilaterally intact throughout upper and lower extremities. TTP over incisions on spine. NTTP throughout rest of exam. Patient has full range of motion in bilateral upper and lower extremities on exam. 5/5 in all major motor groups in upper and lower extremities bilaterally. Neurovascular status is intact. Radial pulses intact, 2+ bilaterally. Cap refill under 3 seconds in digits in upper extremities. Negative Homans bilaterally. Negative Matt bilaterally. Negative clonus bilaterally. - Labs CBC & Chem 7: 12/10/21 07:32 12/10/21 07:32 Labs: Abnormal Lab Results - Last 24 Hours (Table) 12/10/21 12/11/21 Range/Units 07:32 04:42 BUN/Creatinine Ratio 21.61 H (12.00-20.00) Ratio Glucose 187 H (70-110) mg/dL POC Glucose (mg/dL) 138 H (70-110) mg/dL Calcium 8.5 L (8.7-10.3) mg/dL Total Bilirubin <0.15 L (0.30-1.20) mg/dL AST 57 H (13-35) U/L Total Protein 5.7 L (6.2-8.2) g/dL Albumin 3.4 L (3.8-4.9) g/dL Albumin/Globulin Ratio 1.43 L (1.60-3.17) g/dL Assessment and Plan Assessment: 1. T8 burst fracture; Thoracic mechanical back pain - Postop day 2 status post T6 to T10 segmented instrumentation; open treatment T8 burst fracture Plan: 1. T8 burst fracture; Thoracic mechanical back pain - surgery performed yesterday, , 12/09/2021 - T6 to T10 segmented instrumentation; open treatment T8 burst fracture. Patient stable at bedside this morning. Patient in moderate amount of pain. discharge home with health services today, 12/11/2021. 2. Appreciate medical management 3. Pain management - OxyIR; Flexeril; Lyrica; IV meds only if necessary 4. DVT prophylaxis - mechanical 5. GI prophylaxis - Senna 6. PT/OT - weightbearing as tolerated with walker; brace on while up and about 7. Encourage incentive spirometer use 8. Discharge planning - discharge home with health services today, 12/11/2021 Time with Patient: Less than 30
--- NOTE | 2021-12-11 11:11 | P.DS ---
Providers Date of admission: 12/09/21 11:50 Expected date of discharge: 12/11/21 Attending physician: Brannon Bautista DO Consults: 12/09/21 18:19 Consult Physician Routine Consulting Provider: Dwight Joshua Reason/Comments: Medical Management Do you want consulting provider notified?: Yes Primary care physician: Dwight Joshua [facility] Course: Date of admission: 12/09/2021 Date of discharge: 12/11/2021 Admission diagnosis: T8 burst fracture; Thoracic mechanical back pain Discharge diagnosis: Same Attending physician: Dr. Bautista Surgical procedures: T6-T10 segmented instrumentation; open treatment T8 burst fracture Brief history: Patient is a 61-year-old female with a history of T8 burst fracture; thoracic mechanical back pain. At this point patient has failed conservative treatment measures and has opted to proceed with a elective T6 says she tends to diminish instrumentation; open treatment T8 burst fracture. Hospital course: Details of patient's surgery can be found in operative report. Patient tolerated the procedure well and was subsequently transported to orthopedic floor. Patient's orthopeidc and medical care was provided daily. Patient had daily laboratory tests performed for evaluation of overall blood counts. Patient had daily physical therapy to include strengthening range of motion as well as education with walker ambulation. Patient was noted to have a relatively uneventful postoperative course. Patient reported satisfactory pain control with oral pain medications by postoperative day 2. Patient showed satisfactory progress with physical therapy. Patient moved steadily through the program and had no difficulty meeting the goals by postoperative day 2. Given patient's otherwise satisfactory course and having met physical therapy goals, plan is to discharge patient home with health services on postoperative day 2. Discharge condition/disposition: Patient will be discharged home with health services in stable condition. Discharge medications: Instructions are given on resumption of patient's normal daily medications per primary care recommendation, in addition patient will be prescribed Lyrica; oxycodone 10 mg/325 mg; Duricef; senna; Flexeril. Spine Discharge and Recovery Instructions Date of Surgery: 12/09/2021 Diagnosis: T8 burst fracture; thoracic mechanical back pain Procedure: T6-T10 segmented instrumentation; open treatment T8 burst fracture Medications: See medication list All medication refills should be obtained through your primary care doctor or your clinic spine surgeon. Please discuss prescription refills at your follow up appointment. Do not call the hospital for medication refills. Dressing: Leave your dressing in place for a total of 5 days post operatively. Then you may remove your dressing and leave open to air. Keep the area clean and if not able to keep area clean, then cover with sterile gauze and tape. Showering: You may shower 3 days after your procedure allowing soap and water to run over incision. Do not scrub. Do not soak. Blot dry. Follow up: Please confirm a follow up appointment with your surgeon 3 weeks post operatively. Please make an appointment to follow up with your PCP in 1-2 weeks after surgery for evaluation 3 phase, 3-week plan POST OP WEEKS 1-3 1. Lifting/carrying/pushing/pulling limited to less than 5 pounds. 2. Do not sit for longer than 15 minutes at one time. Get up and walk around. Prolonged sitting is NOT advised. If you lay down, see if you can tolerate laying down on you front (belly side) 3. Walk for periods of 15 minutes = 1 mile but no longer; do it multiple times times each day. 4. Ice your low back after activity. POST OP WEEKS 3-6 1. Lifting limited to less than 20 pounds. 2. Do not sit for longer than 30 minutes at a time. Frequently change po sitions. Use a sit-to stand workstation or take frequent breaks from sitting if you have returned to work. 3. Walk for 30 minutes each day. If possible, do these three or more times a day POST OP WEEKS 6+ At your 6-week appointment we will give you a physical therapy referral to focus on a core stabilization and strengthening program. You should also work on leg & buttock strengthening, hamstring & quadriceps stretching, and continue a low impact aerobic activity program such as swimming, walking, or riding a stationary bicycle. During the initial 6 weeks after your surgery, you are at the highest risk of re-injuring your spine. You should generally avoid BLTs (bending, lifting and twisting combination motions) and follow the above guidelines to reduce the chance of reinjury. You can anticipate post op appointments in our office at approximately 3 weeks and 6 weeks after your surgery. INCISION CARE: If your incision is not draining you do NOT need to cover it with a dressing. Keep your incision clean, dry and intact. In most cases, we apply skin glue, honorio or sutures to the incision at the time of surgery. This will be like a crust or have the appearance of a scab and will fall off in time on its own. The stitches or honorio need to be removed at 3 weeks post op appointment. You may begin to shower 3 days after surgery (this allows the glue to maldonado well). However, please avoid scrubbing the incision site or peeling off any of the skin glue. This will ensure optimal healing of your incision. Also, during this time avoid soaking the incision area in water - this includes swimming pools, hot tubs or baths. No ointments, lotions or oils on the incision until your surgeon allows. Leave honorio, sutures or glue in place. Neurological dysfunction that comes on suddenly can also be a sign of a stroke. Below some common symptoms of a stroke are listed: B - balance difficulty such as sudden onset walking or leaning to one side - NEW E - eye problem such as sudden double vision or trouble seeing on one side - NEW F - Facial weakness or numbness on one side - NEW A - Arm or leg weakness or numbness on one side - NEW S - Slurred speech or difficulty with word finding - NEW T - Time is BRAIN! Call 911 as soon as you recognize these symptoms Diet: Consume a regular diet rich in vegetables and lean protein such as chicken or fish. You should consume in a ratio of approximately 20% fats|40% carbohydrates|40%protein. Vegetables, sweet potatoes, brown rice or quinoa are examples of good carbohydrates. Chips, white bread, cookies and sweets/sugar are examples of bad carbohydrates. Limit your bad carbs, go wild with good carbs. "Life's Simple 7" Guidelines as per [place] [employer] These will help you reclaim your life after surgery and char filter operator helper in your recovery, keeping in mind your restrictions. (1) Get Active. Physical activity can help people lose weight, control high blood pressure and cholesterol, feel emotionally better, and sleep better. (2) Control Cholesterol. Avoid a diet high in saturated fat, trans fat, & cholesterol. Limit whole milk & cream, ice cream, butter, egg yolks, processed meats (like sausage and hot dogs), and fatty meats. Choose healthy foods that are low in saturated fat, trans fat and cholesterol which include: Fruits and vegetables, fiber rich grain products (like whole grain pasta and brown rice), lean meat such as chicken, fish, nuts, seeds, and legumes. (3) Eat Better. Eat small portions. Shop at the grocery with a list and do not stray from it. Tips for a healthy diet include: Limit sodium intake to less than 1500mg daily, avoid prepackaged, processed, and fast foods, choose a diet rich in fruits, vegetables, and whole grain, high fiber foods, and limit saturated & cholesterol in your diet. (4) Manage Blood Pressure. If you have high blood pressure, you should have a cuff at home so that you can check your blood pressure regularly. Be sure you have a good cuff. An arm one is generally better than a wrist one. Bring the cuff to a doctor's appointment to validate that the measurements that your cuff are taking are accurate. Take your blood pressure twice daily when you are sitting down and relaxing. Record the numbers in a log and bring this log with you to your doctors' appointments. (5) Lose Weight if your BMI is above 25. A healthy BMI is between 19-25. To calculate Your BMI, you may use a Standard BMI Calculator on the NIH BMI website: <www.nhlbi.nih.gov/guidelines/obesity/BMI/bmicalc.htm>. Weigh oneself daily. If you are overweight, set a goal to lose weight. A pound a week loss if needed is a good target. (6) Reduce Blood Sugar. Limit foods and liquids with "added sugars." (Added sugars include sucrose, fructose, glucose, maltose, dextrose, high fructose corn syrup, corn syrup, concentrated fruit juice and honey). (7) Stop Smoking. If you smoke, quitting smoking is one of the best things that you can do for your health. Smoking increases your risk of heart attack, stroke, and peripheral vascular disease, which is a build-up of plaque in your arteries. Please discard all the cigarettes and lighters in your house. Have a plan for what you will do when you have the urge to smoke. Direct and second- hand smoke shortens your life as well as the lives of your family, friends and others around you. For your health and the health of those around you, please consider quitting! Proper Bending Body Mechanics: Maintain a wide stance with one foot slightly in front of the other. Keep your back straight. Bend utilizing the strength in your hips and knees. Do not bend at the waist. Maintain the lifted object at your waist-level close to your body. Avoid lifting weight that causes immediately pain or pain anywhere in the body afterwards. Smoking/Nicotine If there was ever one thing that you could do to increase your overall health, decrease your risk of cardiovascular problems by about 39% the second you make the choice, it is to STOP SMOKING. Your body's most instant gratification is the second you stop smoking. We have all heard the studies, read the articles but it is true, smoking is extremely bad for your overall health, and moreover it is detrimental to your bone health. Nicotine, IN ANY FORM, kills bone cells, prevents your body from healing fractures, and significantly prolongs healing after surgery. In spine surgery specifically, it increases your risk of not healing your bones to create a fusion and increases your risk of having a revision surgery due to this up to 60%. I know it is hard. I know it feels impossible. But there are ways. Take control of your life. We are here to help you through it. And when you are ready, ask us and we can direct you to help if you desire. Use the START Plan to Quit Smoking (please visit the Helpguide.org website listed below for more information): S = Set a quit date. Choose a date within the next 2 weeks, so you have enough time to prepare without losing your motivation to quit. If you mainly smoke at work, quit on the weekend, so you have a few days to adjust to the change. T = Tell family, friends, and co-workers that you plan to quit. Let your friends and family in on your plan to quit smoking and tell them you need their support and encouragement to stop. Look for a quit rupal who wants to stop smoking as well. You can help each other get through the rough times. A = Anticipate and plan for the challenges you'll face while quitting. Most people who begin smoking again do so within the first 3 months. You can help yourself make it through by preparing ahead for common challenges, such as nicotine withdrawal and cigarette cravings. R = Remove cigarettes and other tobacco products from your home, car, and work. Throw away all your cigarettes (no emergency pack!), lighters, ashtrays, and matches. Wash your clothes and freshen up anything that smells like smoke. Shampoo your car, clean your drapes and carpet, and steam your furniture. T = Talk to your doctor about getting help to quit. Your doctor can prescribe medication to help with withdrawal and suggest other alternatives. If you can't see a doctor, you can get many products over the counter at your local pharmacy or grocery store, including the nicotine patch, nicotine lozenges, and nicotine gum. Resources for Quitting Smoking: <https://www.[place].gov/documents/[facility]/Quit_Tobacco_Resources_for_patients_313 480_7.pdf> Supplementation: Take recommended dosages of Vitamin D and Calcium to help fortify your bones and help them to heal. See your health maintenance packet for dosages and recommended levels. DVT/VTE prophylaxis: You will be given compression stockings from the hospital. Wear these daily for the first two weeks after surgery. You may take them off at night. You may be prescribed a medication to help thin your blood. Take this as directed. If you are not prescribed this medication, early and frequent ambulation has been shown to be the best prophylaxis to deep vein thrombosis and sequelae related to this event. Assessment: T8 burst fracture; Thoracic mechanical back pain Procedures: T6 to T10 segmented instrumentation; open treatment T8 burst fracture Patient Condition at Discharge: Good Plan - Discharge Summary Discharge Rx Participant: No New Discharge Prescriptions: New cefaDROXiL [Duricef] 500 mg PO Q12HR 5 Days #10 cap Cyclobenzaprine [Flexeril] 10 mg PO TID #21 tab Sennosides/Docusate Sodium [Senna Plus 8.6-50 mg Tablet] 1 each PO DAILY #20 tablet Pregabalin [Lyrica] 150 mg PO BID #21 cap oxyCODONE-APAP 10-325MG [Percocet 10-325 mg] 1 tab PO Q8HR PRN #21 tab PRN Reason: Pain No Action ALPRAZolam [Xanax] 0.5 mg PO HS buPROPion HCL [Wellbutrin XL] 150 mg PO BID Albuterol Inhaler [Ventolin Hfa Inhaler] 1 - 2 puff INHALATION Q6H PRN PRN Reason: Shortness Of Breath Ipratropium-Albuterol Nebulize [Duoneb 0.5 mg-3 mg/3 ml Soln] 3 ml INHALATION RT-TID PRN PRN Reason: Shortness Of Breath Cyclobenzaprine [Flexeril] 10 mg PO TID PRN #15 tab PRN Reason: Muscle Spasm oxyCODONE-APAP 10-325MG [Percocet 10-325 mg] 1 each PO Q6H PRN PRN Reason: Pain Discharge Medication List ALPRAZolam [Xanax] 0.5 mg PO HS 08/09/20 [History] Ipratropium-Albuterol Nebulize [Duoneb 0.5 mg-3 mg/3 ml Soln] 3 ml INHALATION RT-TID PRN 08/09/20 [History] buPROPion HCL [Wellbutrin XL] 150 mg PO BID 08/09/20 [History] Cyclobenzaprine [Flexeril] 10 mg PO TID PRN #15 tab 09/15/21 [Rx] Albuterol Inhaler [Ventolin Hfa Inhaler] 1 - 2 puff INHALATION Q6H PRN 12/08/21 [History] oxyCODONE-APAP 10-325MG [Percocet 10-325 mg] 1 each PO Q6H PRN 12/08/21 [History] Cyclobenzaprine [Flexeril] 10 mg PO TID #21 tab 12/11/21 [Rx] Pregabalin [Lyrica] 150 mg PO BID #21 cap 12/11/21 [Rx] Sennosides/Docusate Sodium [Senna Plus 8.6-50 mg Tablet] 1 each PO DAILY #20 tablet 12/11/21 [Rx] cefaDROXiL [Duricef] 500 mg PO Q12HR 5 Days #10 cap 12/11/21 [Rx] oxyCODONE-APAP 10-325MG [Percocet 10-325 mg] 1 tab PO Q8HR PRN #21 tab 12/11/21 [Rx] Follow up Appointment(s)/Referral(s): [facility], [NON-STAFF] - Brannon Bautista DO [Doctor of Osteopathic Medicine] - 2 Weeks Activity/Diet/Wound Care/Special Instructions: Silver foam dressing may be removed tomorrow, 12/12/2021 Spine Discharge and Recovery Instructions Date of Surgery: 12/09/2021 Diagnosis: T8 burst fracture; thoracic mechanical back pain Procedure: T6-T10 segmented instrumentation; open treatment T8 burst fracture Medications: See medication list All medication refills should be obtained through your primary care doctor or your clinic spine surgeon. Please discuss prescription refills at your follow up appointment. Do not call the hospital for medication refills. Dressing: Leave your dressing in place for a total of 5 days post operatively. Then you may remove your dressing and leave open to air. Keep the area clean and if not able to keep area clean, then cover with sterile gauze and tape. Showering: You may shower 3 days after your procedure allowing soap and water to run over incision. Do not scrub. Do not soak. Blot dry. Follow up: Please confirm a follow up appointment with your surgeon 3 weeks post operative ly. Please make an appointment to follow up with your PCP in 1-2 weeks after surgery for evaluation 3 phase, 3-week plan POST OP WEEKS 1-3 1. Lifting/carrying/pushing/pulling limited to less than 5 pounds. 2. Do not sit for longer than 15 minutes at one time. Get up and walk around. Prolonged sitting is NOT advised. If you lay down, see if you can tolerate laying down on you front (belly side) 3. Walk for periods of 15 minutes = 1 mile but no longer; do it multiple times times each day. 4. Ice your low back after activity. POST OP WEEKS 3-6 1. Lifting limited to less than 20 pounds. 2. Do not sit for longer than 30 minutes at a time. Frequently change positions. Use a sit-to stand workstation or take frequent breaks from sitting if you have returned to work. 3. Walk for 30 minutes each day. If possible, do these three or more times a day POST OP WEEKS 6+ At your 6-week appointment we will give you a physical therapy referral to focus on a core stabilization and strengthening program. You should also work on leg & buttock strengthening, hamstring & quadriceps stretching, and continue a low impact aerobic activity program such as swimming, walking, or riding a stationary bicycle. During the initial 6 weeks after your surgery, you are at the highest risk of re-injuring your spine. You should generally avoid BLTs (bending, lifting and twisting combination motions) and follow the above guidelines to reduce the chance of reinjury. You can anticipate post op appointments in our office at approximately 3 weeks and 6 weeks after your surgery. INCISION CARE: If your incision is not draining you do NOT need to cover it with a dressing. Keep your incision clean, dry and intact. In most cases, we apply skin glue, honorio or sutures to the incision at the time of surgery. This will be like a crust or have the appearance of a scab and will fall off in time on its own. The stitches or honorio need to be removed at 3 weeks post op appointment. You may begin to shower 3 days after surgery (this allows the glue to maldonado well). However, please avoid scrubbing the incision site or peeling off any of the skin glue. This will ensure optimal healing of your incision. Also, during this time avoid soaking the incision area in water - this includes swimming pools, hot tubs or baths. No ointments, lotions or oils on the incision until your surgeon allows. Leave honorio, sutures or glue in place. Neurological dysfunction that comes on suddenly can also be a sign of a stroke. Below some common symptoms of a stroke are listed: B - balance difficulty such as sudden onset walking or leaning to one side - NEW E - eye problem such as sudden double vision or trouble seeing on one side - NEW F - Facial weakness or numbness on one side - NEW A - Arm or leg weakness or numbness on one side - NEW S - Slurred speech or difficulty with word finding - NEW T - Time is BRAIN! Call 911 as soon as you recognize these symptoms Diet: Consume a regular diet rich in vegetables and lean protein such as chicken or fish. You should consume in a ratio of approximately 20% fats|40% carbohydrates|40%protein. Vegetables, sweet potatoes, brown rice or quinoa are examples of good carbohydrates. Chips, white bread, cookies and sweets/sugar are examples of bad carbohydrates. Limit your bad carbs, go wild with good carbs. "Life's Simple 7" Guidelines as per [place] [employer] These will help you reclaim your life after surgery and char filter operator helper in your recovery, keeping in mind your restrictions. (1) Get Active. Physical activity can help people lose weight, control high b lood pressure and cholesterol, feel emotionally better, and sleep better. (2) Control Cholesterol. Avoid a diet high in saturated fat, trans fat, & cholesterol. Limit whole milk & cream, ice cream, butter, egg yolks, processed meats (like sausage and hot dogs), and fatty meats. Choose healthy foods that are low in saturated fat, trans fat and cholesterol which include: Fruits and vegetables, fiber rich grain products (like whole grain pasta and brown rice), lean meat such as chicken, fish, nuts, seeds, and legumes. (3) Eat Better. Eat small portions. Shop at the grocery with a list and do not stray from it. Tips for a healthy diet include: Limit sodium intake to less than 1500mg daily, avoid prepackaged, processed, and fast foods, choose a diet rich in fruits, vegetables, and whole grain, high fiber foods, and limit saturated & cholesterol in your diet. (4) Manage Blood Pressure. If you have high blood pressure, you should have a cuff at home so that you can check your blood pressure regularly. Be sure you have a good cuff. An arm one is generally better than a wrist one. Bring the cuff to a doctor's appointment to validate that the measurements that your cuff are taking are accurate. Take your blood pressure twice daily when you are sitting down and relaxing. Record the numbers in a log and bring this log with you to your doctors' appointments. (5) Lose Weight if your BMI is above 25. A healthy BMI is between 19-25. To calculate Your BMI, you may use a Standard BMI Calculator on the NIH BMI website: <www.nhlbi.nih.gov/guidelines/obesity/BMI/bmicalc.htm>. Weigh oneself daily. If you are overweight, set a goal to lose weight. A pound a week loss if needed is a good target. (6) Reduce Blood Sugar. Limit foods and liquids with "added sugars." (Added sugars include sucrose, fructose, glucose, maltose, dextrose, high fructose corn syrup, corn syrup, concentrated fruit juice and honey). (7) Stop Smoking. If you smoke, quitting smoking is one of the best things that you can do for your health. Smoking increases your risk of heart attack, stroke, and peripheral vascular disease, which is a build-up of plaque in your arteries. Please discard all the cigarettes and lighters in your house. Have a plan for what you will do when you have the urge to smoke. Direct and second- hand smoke shortens your life as well as the lives of your family, friends and others around you. For your health and the health of those around you, please consider quitting! Proper Bending Body Mechanics: Maintain a wide stance with one foot slightly in front of the other. Keep your back straight. Bend utilizing the strength in your hips and knees. Do not bend at the waist. Maintain the lifted object at your waist-level close to your body. Avoid lifting weight that causes immediately pain or pain anywhere in the body afterwards. Smoking/Nicotine If there was ever one thing that you could do to increase your overall health, decrease your risk of cardiovascular problems by about 39% the second you make the choice, it is to STOP SMOKING. Your body's most instant gratification is the second you stop smoking. We have all heard the studies, read the articles but it is true, smoking is extremely bad for your overall health, and moreover it is detrimental to your bone health. Nicotine, IN ANY FORM, kills bone cells, prevents your body from healing fractures, and significantly prolongs healing after surgery. In spine surgery specifically, it increases your risk of not healing your bones to create a fusion and increases your risk of having a revision surgery due to this up to 60%. I know it is hard. I know it feels impossible. But there are ways. Take control of your life. We are here to help you through it. And when you are ready, ask us and we can direct you to help if you desire. Use the START Plan to Quit Smoking (please visit the Helpguide.org website listed below for more information): S = Set a quit date. Choose a date within the next 2 weeks, so you have enough time to prepare without losing your motivation to quit. If you mainly smoke at work, quit on the weekend, so you have a few days to adjust to the change. T = Tell family, friends, and co-workers that you plan to quit. Let your friends and family in on your plan to quit smoking and tell them you need their support and encouragement to stop. Look for a quit rupal who wants to stop smoking as well. You can help each other get through the rough times. A = Anticipate and plan for the challenges you'll face while quitting. Most people who begin smoking again do so within the first 3 months. You can help yourself make it through by preparing ahead for common challenges, such as nicotine withdrawal and cigarette cravings. R = Remove cigarettes and other tobacco products from your home, car, and work. Throw away all your cigarettes (no emergency pack!), lighters, ashtrays, and matches. Wash your clothes and freshen up anything that smells like smoke. Shampoo your car, clean your drapes and carpet, and steam your furniture. T = Talk to your doctor about getting help to quit. Your doctor can prescribe medication to help with withdrawal and suggest other alternatives. If you can't see a doctor, you can get many products over the counter at your local pharmacy or grocery store, including the nicotine patch, nicotine lozenges, and nicotine gum. Resources for Quitting Smoking: <https://www.[place].gov/document s/[facility]/Quit_Tobacco_Resources_for_patients_313480_7.pdf> Supplementation: Take recommended dosages of Vitamin D and Calcium to help fortify your bones and help them to heal. See your health maintenance packet for dosages and recommended levels. DVT/VTE prophylaxis: You will be given compression stockings from the hospital. Wear these daily for the first two weeks after surgery. You may take them off at night. You may be prescribed a medication to help thin your blood. Take this as directed. If you are not prescribed this medication, early and frequent ambulation has been shown to be the best prophylaxis to deep vein thrombosis and sequelae related to this event. Discharge Disposition: HOME WITH HOME HEALTH SERVICES
[2021-12-11] MEDS: IPRATROPIUM-ALBUTEROL 3 ML NEB INHALATION PRN ×2 (13:19→19:43)
--- NOTE | 2021-12-11 13:40 | XR ---
EXAMINATION TYPE: XR chest 1V portable DATE OF EXAM: 12/11/2021 COMPARISON: 09/11/2020 HISTORY: Shortness of breath and decreased oxygen saturation following surgery TECHNIQUE: Single frontal view of the chest is obtained. FINDINGS: There has been recent back surgery with stabilization rods in the thoracic spine. There is an ill-defined opacity in the right upper lobe/paratracheal region and neoplasm is not exclu ded. The left lung is clear. There is no pleural effusion or pneumothorax. The heart size is normal and th e pulmonary vasculature is not congested. The osseous structures are osteopenic IMPRESSION: Postsurgical changes of thoracic spinal fusion. There is ill-defined indeterminate opacity in the rig ht paratracheal region. Correlate with CT of the chest. Pneumonia or malignancy not excluded.
[2021-12-11] MEDS: CYCLOBENZAPRINE 10 MG TAB PO PRN (15:07)
[2021-12-11] MEDS: FUROSEMIDE 10 MG/ML 4 ML VIAL IV SCH (17:00)
[2021-12-11] MEDS: ALPRAZolam 0.5 MG TAB PO SCH (20:15)
[2021-12-11] MEDS: HEPARIN SODIUM,PORCINE/PF 5,000 UNIT/0.5 ML SYRINGE SQ SCH (20:16)
[2021-12-12] MEDS: LACTATED RINGERS 1,000 ML IV SCH (04:19)
--- NOTE | 2021-12-12 07:34 | XR ---
EXAMINATION TYPE: XR chest 1V portable DATE OF EXAM: 12/12/2021 COMPARISON: 12/11/2021 HISTORY: CHF TECHNIQUE: Single frontal view of the chest is obtained. FINDINGS: There is evidence for recent dorsal spine stabilization with metallic fixation. The ill-defined mass right paratracheal region is again seen unchanged. This is suspicious for malign fran given the patient's known history of lung cancer. The heart is not grossly enlarged and the pulmonary vasculature is not congested. There is no pneumot horax. There is no large pleural effusion. IMPRESSION: Right hilar and suprahilar density which was seen previously and is stable and is suspic ious for malignancy given the patient's history. There is no evidence of CHF.
[2021-12-12 09:44] LABS: ALT 26 U/L (4-34); AST 61 U/L (14-36); African American GFR (CKD) >90 (>60 ml/min/1.73 sqM); Albumin 2.9 g/dL (3.5-5.0); Alkaline Phosphatase 66 U/L (38-126); Anion Gap 6 mmol/L; Blood Urea Nitrogen 13 mg/dL (7-17); Calcium 8.1 mg/dL (8.4-10.2); Carbon Dioxide 26 mmol/L (22-30); Chloride 101 mmol/L (98-107); Glucose 160 mg/dL (74-99); Magnesium 1.9 mg/dL (1.6-2.3); Non-African American GFR(CKD) >90 (>60 ml/min/1.73 sqM); Potassium 4.1 mmol/L (3.5-5.1); Sodium 133 mmol/L (137-145); Total Bilirubin 0.7 mg/dL (0.2-1.3); Total Protein 5.5 g/dL (6.3-8.2)
[2021-12-12] MEDS: PREGABALIN 75 MG CAP PO SCH ×2 (10:14→21:02)
[2021-12-12] MEDS: FUROSEMIDE 10 MG/ML 4 ML VIAL IV SCH (10:14)
[2021-12-12] MEDS: buPROPion XL 150 MG TAB.ER.24H PO SCH ×2 (10:14→21:02)
[2021-12-12] MEDS: HEPARIN SODIUM,PORCINE/PF 5,000 UNIT/0.5 ML SYRINGE SQ SCH ×2 (10:15→21:02)
--- NOTE | 2021-12-12 12:59 | P.PN ---
Subjective Progress Note Date: 12/12/21 Principal diagnosis: 1. T8 burst fracture 2. Thoracic mechanical back pain Patient was seen at bedside this morning lying semirecumbent position with nasal cannula on. Patient says she is still in a lot of pain in her back. Patient has received planning of pain medication during her stay and has seemed to do fairly well with physical therapy based on physical therapy notes. Patient did have episodes of shortness of breath yesterday and increased oxygen needs and she was transferred to the cardiac floor. I did discuss with the patient at length the potential for her to go to rehab upon discharge due to these increased oxygen needs. Patient says she did get up with physical therapy yesterday morning and moved from bed to chair. Patient says she was in a lot of pain during her transitions from lying in bed to seated and from seated to standing up. Patient says she did use walker when going to chair. Patient says she has urinated a few times since surgery. Patient says she has not had a bowel movement yet, however, patient says she has been passing gas. Patient states most the pain is in her spine at this time. Patient denies any radiation of pain. Patient denies chest pain, fever, shortness of breath, nausea, vomiting, change in vision, loss of bowel/bladder control. Objective - Vital Signs Vital signs: Vital Signs Temp 97.9 F 12/12/21 08:00 Pulse 76 12/12/21 12:00 Resp 16 12/12/21 12:00 BP 96/64 12/12/21 12:00 Pulse Ox 95 12/12/21 12:00 FiO2 Intake & Output 12/11/21 12/12/21 12/12/21 18:59 06:59 18:59 Intake Total 20 Output Total 800 Balance 20 -800 Intake: IV 20 Invasive Line 1 10 Invasive Line 2 10 Output: Urine 800 Other: Voiding Method Toilet External Catheter External Catheter # Voids 4 1 - Exam Dressings present on spine. Negative for any fluctuance/purulence. Sensation is equal, symmetric, bilaterally intact throughout upper and lower extremities. TTP over incisions on spine. NTTP throughout rest of exam. Patient has full range of motion in bilateral upper and lower extremities on exam. 5/5 in all major motor groups in upper and lower extremities bilaterally. Neurovascular status is intact. Radial pulses intact, 2+ bilaterally. Cap refill under 3 seconds in digits in upper extremities. Negative Homans bilaterally. Negative Matt bilaterally. Negative clonus bilaterally. - Labs CBC & Chem 7: 12/10/21 07:32 12/12/21 08:59 Labs: Abnormal Lab Results - Last 24 Hours (Table) 12/11/21 12/12/21 Range/Units 14:26 08:59 D-Dimer 0.68 H (<0.60) mg/L FEU Sodium 133 L (137-145) mmol/L Creatinine 0.43 L (0.52-1.04) mg/dL Glucose 160 H (74-99) mg/dL Calcium 8.1 L (8.4-10.2) mg/dL AST 61 H (14-36) U/L Total Protein 5.5 L (6.3-8.2) g/dL Albumin 2.9 L (3.5-5.0) g/dL Assessment and Plan Assessment: 1. T8 burst fracture; Thoracic mechanical back pain - Postop day 3 status post T6 to T10 segmented instrumentation; open treatment T8 burst fracture Plan: 1. T8 burst fracture; Thoracic mechanical back pain - surgery performed , 12/09/2021 - T6 to T10 segmented instrumentation; open treatment T8 burst fracture. Patient at bedside this morning on 4 L of O2. Patient in moderate amount of pain. Patient was transferred from to cardiac floor yesterday due to increased O2 needs/SOB. At this time we are recommending discharge to [facility]. Patient is stable from orthopedic standpoint for discharge. We will continue to follow patient during stay. Patient encouraged to ambulate. up out of bed during all meals in chair. 2. Appreciate medical management 3. Pain management - OxyIR; Flexeril; Lyrica; IV meds only if necessary 4. DVT prophylaxis - mechanical 5. GI prophylaxis - Senna 6. PT/OT - weightbearing as tolerated with walker; brace on while up and about 7. Encourage incentive spirometer use - use 20x per hour 8. Discharge planning - discharge to [facility] when auth is completed Time with Patient: Less than 30
--- NOTE | 2021-12-12 17:27 | CT ---
EXAMINATION TYPE: CT angio chest DATE OF EXAM: 12/12/2021 COMPARISON: 12/10/2021 HISTORY: chest pain post-op CT DLP: 518.6 mGycm Automated exposure control for dose reduction was used. CONTRAST: Performed with IV Contrast, patient injected with 77cc mL of Isovue 370. Images obtained from the thoracic inlet to the diaphragm with the IV contrast. There are Three-D post processed images. There is bilateral airspace infiltrate and atelectasis at both lung bases. Heart is enlarged. No vikki cardial effusion. No mediastinal adenopathy. There are no hilar masses. There is normal contrast opac ification of the pulmonary arteries. No filling defect. There is posterior fusion surgery with rods and screws in the mid thoracic spine. There is T8 claudy demi deformity almost 50%. The sternum is intact. IMPRESSION: No evidence of pulmonary embolism. Bilateral lower lobe pulmonary infiltrates and atelectasis and ple ural fluid which are increased compared to recent exam.
--- NOTE | 2021-12-12 18:10 | PN ---
PROGRESS NOTE I am covering for Dr. Joshua. SUBJECTIVE: This 61-year-old woman who was admitted after open treatment of T8 burst fracture with screw placement. Complains of some shortness of breath and some change in mental status. The patient also hypoxic. The patient closely monitored at this time. The chest x-ray is done today, reviewed personally, showed some atelectasis and some fluid overload also. There is no history of any fever, rigors, or chills. PAST MEDICAL HISTORY: Reviewed. REVIEW OF SYSTEMS: 14-point review of systems is negative as mentioned earlier. CURRENT MEDICATIONS: Reviewed include Xanax, and dose and rest of medications noted. PHYSICAL EXAMINATION: VITAL SIGNS: Pulse is 99, blood pressure 95/60, respirations 20. HEENT: Conjunctivae normal. NECK: No jugular venous distention. CARDIOVASCULAR: S1, S2 muffled. RESPIRATIONS: Breath sounds diminished at the bases. Few scattered rhonchi. ABDOMEN: Soft, nontender. LEGS: No edema. NERVOUS SYSTEM: No focal deficit. LABORATORY DATA: D-dimer is 0.68. WBC 14.18. ASSESSMENT: 1. T8 burst fracture, status post open treatment. 2. Possible fluid overload. 3. Bilateral atelectasis and hypoxia. 4. History of chronic obstructive pulmonary disease. 5. History of liver disease. 6. Multiple medical issues. RECOMMENDATIONS: To continue current medications, continue symptomatic treatment. I would recommend bronchodilators and dose of diuretics, empiric antibiotics. If the D-dimer is elevated, I would recommend a CT angio. Closely follow. Further recommendations to follow. DVT prophylaxis. MMODL / IJN: [id number] /
[2021-12-12] MEDS: ALPRAZolam 0.5 MG TAB PO SCH (21:02)
[2021-12-12] MEDS: AZITHROMYCIN 500 MG in SODIUM CHLORIDE 0.9% 250 ML IVPB SCH (23:42)
[2021-12-13] MEDS: PIPERACILLIN-TAZOBACTAM 3.375 GM in SODIUM CHLORIDE 0.9% 100 ML IVPB SCH ×3 (00:55→16:32)
[2021-12-13] MEDS: LACTATED RINGERS 1,000 ML IV SCH (05:54)
[2021-12-13 08:32] LABS: Basophils % (A) 0 %; Eosinophils # (A) 0.3 k/uL (0-0.7); Eosinophils % (A) 3 %; HGB 12.6 gm/dL (11.4-16.0); Hypochromasia Marked; Lymphocytes # (A) 2.2 k/uL (1.0-4.8); Lymphocytes % (A) 23 %; MCH 28.7 pg (25.0-35.0); MCHC 30.8 g/dL (31.0-37.0); MCV 93.2 fL (80.0-100.0); Monocytes # (A) 0.6 k/uL (0-1.0); Monocytes % (A) 6 %; Neutrophils # (A) 6.3 k/uL (1.3-7.7); Neutrophils % (A) 65 %; Platelet Count 124 k/uL (150-450); RDW 14.7 % (11.5-15.5); WBC 9.6 k/uL (3.8-10.6)
--- NOTE | 2021-12-13 08:35 | PN ---
PROGRESS NOTE SUBJECTIVE: This 61-year-old woman was admitted with burst fracture of the T8, had a surgery, but subsequently, the patient was found to be unresponsive, and the patient had bilateral lung lesions, possibly fluid overload and pneumonia. The patient was transferred to telemetry. The patient is being closely monitored. No chest pain. No palpitation. PHYSICAL EXAMINATION: VITAL SIGNS: Pulse is 76, blood pressure 96/64, respirations 16. CHEST: Few scattered rhonchi and crackles. ABDOMEN: Soft. NERVOUS SYSTEM: Diffusely weak. LABORATORY DATA: Noted. D-dimer is 0.68. The rest of the labs are noted. ASSESSMENT: 1. Possible fluid overload. 2. Possible bilateral pneumonia. 3. Elevated D-dimer. 4. Recent surgery for T8 burst fracture. 5. Multiple medical issues. RECOMMENDATIONS: I recommend to continue current medications and symptomatic treatment. Otherwise, recommend CT angio of the chest, and we will continue to monitor. Pulmonary has been consulted. Guarded prognosis. Further recommendations to follow. MMODL / IJN: [id number] /
[2021-12-13] MEDS: PREGABALIN 75 MG CAP PO SCH ×2 (08:52→20:55)
[2021-12-13] MEDS: FUROSEMIDE 10 MG/ML 4 ML VIAL IV SCH (08:53)
[2021-12-13] MEDS: buPROPion XL 150 MG TAB.ER.24H PO SCH ×2 (08:53→20:55)
[2021-12-13] MEDS: HEPARIN SODIUM,PORCINE/PF 5,000 UNIT/0.5 ML SYRINGE SQ SCH ×2 (08:53→20:55)
[2021-12-13 08:58] LABS: ALT 26 U/L (4-34); African American GFR (CKD) >90 (>60 ml/min/1.73 sqM); Albumin 2.9 g/dL (3.5-5.0); Anion Gap 10 mmol/L; Blood Urea Nitrogen 14 mg/dL (7-17); Carbon Dioxide 25 mmol/L (22-30); Chloride 102 mmol/L (98-107); Glucose 152 mg/dL (74-99); Non-African American GFR(CKD) >90 (>60 ml/min/1.73 sqM); Sodium 137 mmol/L (137-145); Total Bilirubin 0.8 mg/dL (0.2-1.3); Total Protein 5.5 g/dL (6.3-8.2)
[2021-12-13 09:20] LABS: AST 52 U/L (14-36); Alkaline Phosphatase 78 U/L (38-126)
[2021-12-13] MEDS: MAGNESIUM HYDROXIDE 2,400 MG/10 ML CUP PO PRN (12:25)
[2021-12-13] MEDS: SENNOSIDES-DOCUSATE SODIUM 1 EACH TAB PO PRN (16:38)
--- NOTE | 2021-12-13 18:55 | P.CNPUL ---
History of Present Illness Consult date: 12/13/21 Reason for consult: dyspnea, cough, hypoxemia, pneumonia Chief complaint: Increasing shortness of breath and oxygen requirement History of present illness: Patient is a morbidly obese 60-year-old female with long-standing history of smoking and nicotine use history of lung cancer status post chemo and radiation therapy. Patient originally admitted into the hospital due to recurrent falls and sharp thoracic pain since August 2021 she was seen in the emergency department placed on pain medicine and back brace without any significant improvement but in fact worsening of pain, patient has been readmitted for T8 fracture with osteoporosis and severe back pain, patient underwent T6 to T10 segmental instrumentation along with open treatment of T8 fracture and with the school placement on December 09. In the last 2 days she has been more short of breath until the point requiring oxygen she also has dry hacking cough transferred to [facility] for further evaluation. She underwent back to back to computed tomography scan of the chest on December 10 which revealed left lower lobe atelectasis along with extensive infiltrate and volume loss in right lower lobe with no evidence of pulmonary embolism. A follow-up computed tomography scan continue show worsening of infiltrate and both lower lobes along with small pleural effusion and atelectasis no pulmonary embolism identified. Currently patient is treated with bronchodilator 3 times a day with Zithromax 500 mg daily continuation of her home medications with DVT prophylaxis and Zosyn 3.375 every 8 hourly. Her most recent labs include white cell count is 9.6, hemoglobin and hematocrit is 12/41, platelet count down to 124 from 387, d-dimer is 0.68, chemistry within normal limit. Patient is a long-standing history of smoking and nicotine use still smoking few cigarettes a day but used to smoke one to 2 packs per day for about 35-40 years Review of Systems All systems: negative Past Medical History Past Medical History: Cancer, COPD, CVA/TIA, Hearing Disorder / Deafness, Liver Disease, Memory Impairment, Musculoskeletal Disorder, Osteoarthritis (OA) Additional Past Medical History / Comment(s): back pain; "several tia's-not sure when last one was-memory issues, hx. 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 lung cancer-had chemo & radiation, currently in remission History of Any Multi-Drug Resistant Organisms: None Reported Past Surgical History: Back Surgery, Breast Surgery, Cholecystectomy, Hysterectomy Additional Past Surgical History / Comment(s): back fusion, cervical fusion. spleenectomy-d/t injury; benign R Breast lumpectomy, sinus sx Past Anesthesia/Blood Transfusion Reactions: No Reported Reaction Additional Past Anesthesia/Blood Transfusion Reaction / Comment(s): Pt hs claustrophobia, no transfusion reactions Smoking Status: Current every day smoker - Past Family History Mother Family Medical History: Cancer Additional Family Medical History / Comment(s): Father History Unknown: Yes Family Medical History: No Reported History Additional Family Medical History / Comment(s): Father was murdered Medications and Allergies Home Medications Medication Instructions Recorded Confirmed Type ALPRAZolam [Xanax] 0.5 mg PO HS 08/09/20 12/08/21 History Ipratropium-Albuterol Nebulize 3 ml INHALATION RT-TID PRN 08/09/20 12/08/21 History [Duoneb 0.5 mg-3 mg/3 ml Soln] buPROPion HCL [Wellbutrin XL] 150 mg PO BID 08/09/20 12/08/21 History Cyclobenzaprine [Flexeril] 10 mg PO TID PRN #15 tab 09/15/21 12/08/21 Rx Albuterol Inhaler [Ventolin Hfa 1 - 2 puff INHALATION Q6H PRN 12/08/21 12/08/21 History Inhaler] oxyCODONE-APAP 10-325MG [Percocet 1 each PO Q6H PRN 12/08/21 12/08/21 History 10-325 mg] Cyclobenzaprine [Flexeril] 10 mg PO TID #21 tab 12/11/21 Rx Pregabalin [Lyrica] 150 mg PO BID #21 cap 12/11/21 Rx Sennosides/Docusate Sodium [Senna 1 each PO DAILY #20 tablet 12/11/21 Rx Plus 8.6-50 mg Tablet] cefaDROXiL [Duricef] 500 mg PO Q12HR 5 Days #10 cap 12/11/21 Rx oxyCODONE-APAP 10-325MG [Percocet 1 tab PO Q8HR PRN #21 tab 12/11/21 Rx 10-325 mg] Allergies Allergy/AdvReac Type Severity Reaction Status Date / Time gentamicin Allergy Anaphylaxis Verified 12/08/21 14:14 Physical Exam Vitals: Vital Signs Temp Pulse Resp BP Pulse Ox 12/13/21 16:00 98 F 81 18 106/74 92 L 12/13/21 11:16 97.9 F 83 17 101/70 93 L 12/13/21 08:00 97.7 F 87 17 110/64 95 12/13/21 03:45 94 18 102/61 92 L 12/13/21 00:00 97.4 F L 109 H 22 114/73 97 12/12/21 20:00 98.9 F 93 18 129/76 93 L Intake and Output 12/13/21 12/13/21 12/13/21 06:59 14:59 22:59 Intake Total 658 240 Balance 658 240 Intake: Oral 658 240 Other: Voiding Method Toilet Toilet # Voids 1 2 2 - Constitutional General appearance: disheveled, morbidly obese - EENT Eyes: EOMI, PERRLA ENT: normal oropharynx Ears: bilateral: normal - Neck Neck: normal ROM Carotids: bilateral: upstroke normal Thyroid: bilateral: normal size - Respiratory Respiratory: bilateral: diminished, rales, wheezing - Cardiovascular Rhythm: regular Heart sounds: normal: S1, S2 - Gastrointestinal General gastrointestinal: decreased bowel sounds, soft - Integumentary Integumentary: normal turgor - Neurologic Neurologic: CNII-XII intact - Musculoskeletal Musculoskeletal: gait normal, generalized weakness, strength equal bilaterally - Psychiatric Psychiatric: A&O x's 3, appropriate affect, intact judgment & insight Results - Laboratory Findings CBC and BMP: 12/13/21 08:01 12/13/21 08:01 PT/INR, D-dimer D-Dimer 0.68 mg/L FEU (<0.60) H 12/11/21 14:26 Abnormal lab findings: Abnormal Labs 12/10/21 12/10/21 12/11/21 07:32 07:32 04:42 WBC 14.18 H Hgb 11.9 L MCHC 30.9 L RDW 16.1 H Plt Count Immature Gran # 0.06 H Neutrophils # 11.00 H Monocytes # 1.42 H Eosinophils # 0 L D-Dimer Sodium Creatinine BUN/Creatinine Ratio 21.61 H Glucose 187 H POC Glucose (mg/dL) 138 H Calcium 8.5 L Total Bilirubin <0.15 L AST 57 H Total Protein 5.7 L Albumin 3.4 L Albumin/Globulin Ratio 1.43 L 12/11/21 12/12/21 12/13/21 14:26 08:59 08:01 WBC Hgb MCHC 30.8 L RDW Plt Count 124 L Immature Gran # Neutrophils # Monocytes # Eosinophils # D-Dimer 0.68 H Sodium 133 L Creatinine 0.43 L BUN/Creatinine Ratio Glucose 160 H POC Glucose (mg/dL) Calcium 8.1 L Total Bilirubin AST 61 H Total Protein 5.5 L Albumin 2.9 L Albumin/Globulin Ratio 12/13/21 08:01 WBC Hgb MCHC RDW Plt Count Immature Gran # Neutrophils # Monocytes # Eosinophils # D-Dimer Sodium Creatinine 0.50 L BUN/Creatinine Ratio Glucose 152 H POC Glucose (mg/dL) Calcium 8.0 L Total Bilirubin AST 52 H Total Protein 5.5 L Albumin 2.9 L Albumin/Globulin Ratio - Diagnostic Findings Chest x-ray: report reviewed, image reviewed CT scan - chest: report reviewed, image reviewed (As noted above) Assessment and Plan Assessment: Acute hypoxic respiratory failure Aspiration pneumonia T8 burst fracture COPD with acute exacerbation History of lung cancer status post radiation chemotherapy Morbid obesity Fluid overload versus diastolic heart failure Plan: Patient being appropriately treated with IV Zosyn and Zithromax Continue gentle diuresis Continue bronchodilator as needed Continue supplemental oxygen Initiated trial of IV steroids will begin with 40 mg IV every 8 than subsequently in 12-24 hour or decrease it to every 12 DVT prophylaxis Continue supportive care pain management PT OT evaluation Increase activity as tolerated Continue deep breathing size incentive spirometry Time with Patient: Greater than 30
[2021-12-13] MEDS: methylPREDNISolone SOD SUCCI 40 MG/ML 1 ML VIAL IV SCH (20:55)
[2021-12-13] MEDS: AZITHROMYCIN 500 MG in SODIUM CHLORIDE 0.9% 250 ML IVPB SCH (20:58)
[2021-12-13] MEDS: ALPRAZolam 0.5 MG TAB PO SCH (21:00)
[2021-12-14] MEDS: PIPERACILLIN-TAZOBACTAM 3.375 GM in SODIUM CHLORIDE 0.9% 100 ML IVPB SCH ×2 (00:35→09:56)
[2021-12-14] MEDS: LACTATED RINGERS 1,000 ML IV SCH (04:40)
[2021-12-14] MEDS: SENNOSIDES-DOCUSATE SODIUM 1 EACH TAB PO PRN (04:56)
[2021-12-14] MEDS: MAGNESIUM HYDROXIDE 2,400 MG/10 ML CUP PO PRN (04:56)
[2021-12-14] MEDS: PREGABALIN 75 MG CAP PO SCH ×2 (09:50→19:48)
[2021-12-14] MEDS: FUROSEMIDE 10 MG/ML 4 ML VIAL IV SCH (09:51)
[2021-12-14] MEDS: HEPARIN SODIUM,PORCINE/PF 5,000 UNIT/0.5 ML SYRINGE SQ SCH ×2 (09:51→19:48)
[2021-12-14] MEDS: methylPREDNISolone SOD SUCCI 40 MG/ML 1 ML VIAL IV SCH ×2 (09:51→19:48)
[2021-12-14] MEDS: buPROPion XL 150 MG TAB.ER.24H PO SCH ×2 (09:54→19:48)
[2021-12-14 11:51] VITALS: BMI 39.5
[2021-12-14] MEDS ORDERED: ZOLPIDEM 5 MG TAB PO PRN (18:30)
[2021-12-14] MEDS: ALPRAZolam 0.5 MG TAB PO SCH (19:48)
[2021-12-14] MEDS: AZITHROMYCIN 500 MG in SODIUM CHLORIDE 0.9% 250 ML IVPB SCH (23:01)
--- NOTE | 2021-12-14 23:31 | P.PN ---
Subjective Progress Note Date: 12/14/21 Principal diagnosis: Acute hypoxic respiratory failure Aspiration pneumonia T8 burst fracture COPD with acute exacerbation History of lung cancer status post radiation chemotherapy Morbid obesity Fluid overload versus diastolic heart failure 12/14/2021, patient seen eval reexamined during the rounds labs reviewed medications reviewed patient is 94% on room air breathing more comfortably, patient just have a shower, still have back pain, dry nonproductive cough is present, and denies any chest pain, back pain still there postoperative pain slightly better with pain medicine, no fever or chills present, patient remains afebrile with stable hemodynamics oxygen saturation 96% on 3 L earlier now at room air 94%, patient is status post midline for IV antibiotics and steroids. She is also on bronchodilators with DuoNeb with continuation of home medicines, patient is being gently diuresed with 40 mg Lasix daily also has been on heparin subcu for DVT prophylaxis pain control is with Dilaudid. No radiographic studies done today we'll get a chest x-ray portable tomorrow to look into progressive pneumonia Patient is a morbidly obese 60-year-old female with long-standing history of smoking and nicotine use history of lung cancer status post chemo and radiation therapy. Patient originally admitted into the hospital due to recurrent falls and sharp thoracic pain since August 2021 she was seen in the emergency department placed on pain medicine and back brace without any significant improvement but in fact worsening of pain, patient has been readmitted for T8 fracture with osteoporosis and severe back pain, patient underwent T6 to T10 segmental instrumentation along with open treatment of T8 fracture and with the school placement on December 09. In the last 2 days she has been more short of breath until the point requiring oxygen she also has dry hacking cough transferred to [facility] [address] for further evaluation. She underwent back to back to computed tomography s can of the chest on December 10 which revealed left lower lobe atelectasis along with extensive infiltrate and volume loss in right lower lobe with no evidence of pulmonary embolism. A follow-up computed tomography scan continue show worsening of infiltrate and both lower lobes along with small pleural effusion and atelectasis no pulmonary embolism identified. Currently patient is treated with bronchodilator 3 times a day with Zithromax 500 mg daily continuation of her home medications with DVT prophylaxis and Zosyn 3.375 every 8 hourly. Her most recent labs include white cell count is 9.6, hemoglobin and hematocrit is 12/41, platelet count down to 124 from 387, d-dimer is 0.68, chemistry within normal limit. Patient is a long-standing history of smoking and nicotine use still smoking few cigarettes a day but used to smoke one to 2 packs per day for about 35-40 years Objective - Vital Signs Vital signs: Vital Signs Temp 96.3 F L 12/14/21 16:00 Pulse 72 12/14/21 19:59 Resp 19 12/14/21 19:59 BP 120/68 12/14/21 19:59 Pulse Ox 95 12/14/21 19:59 FiO2 Intake & Output 12/14/21 12/14/21 12/15/21 06:59 18:59 06:59 Intake Total 10 1090 Output Total 900 Balance -890 1090 Weight 95 kg Intake: IV 10 10 Invasive Line 3 10 10 Oral 1080 Output: Urine 900 Other: Voiding Method Toilet Toilet Toilet # Voids 1 3 1 # Bowel Movements 2 1 - Exam - Constitutional General appearance: disheveled, morbidly obese - EENT Eyes: EOMI, PERRLA ENT: normal oropharynx Ears: bilateral: normal - Neck Neck: normal ROM Carotids: bilateral: upstroke normal Thyroid: bilateral: normal size - Respiratory Respiratory: bilateral: diminished, rales, wheezing - Cardiovascular Rhythm: regular Heart sounds: normal: S1, S2 - Gastrointestinal General gastrointestinal: decreased bowel sounds, soft - Integumentary Integumentary: normal turgor - Neurologic Neurologic: CNII-XII intact - Musculoskeletal Musculoskeletal: gait normal, generalized weakness, strength equal bilaterally - Psychiatric - Labs CBC & Chem 7: 12/13/21 08:01 12/13/21 08:01 Labs: Microbiology - Last 24 Hours (Table) 12/14/21 02:58 Urine Culture - Preliminary Urine,Voided Assessment and Plan Assessment: Acute hypoxic respiratory failure Aspiration pneumonia T8 burst fracture status post T8 repair and T6 to T10 segmental instrumentation along with open treatment of T8 fracture and with the screw placement on December 09 COPD with acute exacerbation History of lung cancer status post radiation chemotherapy Morbid obesity Fluid overload versus diastolic heart failure Plan: Patient being appropriately treated with IV Zosyn Continue gentle diuresis Continue bronchodilator as needed Continue monitor off of oxygen Continue trial of IV steroids with 40 mg IV every 12 hour DVT prophylaxis Continue supportive care pain management PT OT evaluation Increase activity as tolerated Continue deep breathing size incentive spirometry Follow-up chest x-ray tomorrow We'll send urine for Legionella Antigen Time with Patient: Greater than 30
--- NOTE | 2021-12-14 23:36 | PN ---
PROGRESS NOTE SUBJECTIVE: A 61-year-old white female after T8 burst fracture repair and bilateral pneumonia, being treated with Zosyn and azithromycin. CAT scan was reviewed. She has weaned down from 4 L oxygen down to 3 L oxygen. She needs to be weaned off prior to going home, otherwise set up home oxygen for her. Remains on IV Zosyn, Lyrica for pain, Lasix for CHF, DuoNeb updraft q.i.d., and azithromycin IV for antibiotics. She says she has pain, severe. She wants more pain medicine. Her pain in her back is now being controlled. OBJECTIVE: VITAL SIGNS: Temperature 97.3, blood pressure 102/63, O2 is 96 on 3 L. LUNGS: Scattered rhonchi and wheeze. CARDIOVASCULAR: S1, S2. BMI is over 40. ASSESSMENT: Status post thoracic burst fracture repair, bilateral pneumonia, chronic obstructive pulmonary disease, gastroesophageal reflux disease, obesity. Prognosis is guarded. Remains on azithromycin and Zosyn, nebulizer treatments, DuoNeb q.i.d. MMODL / IJN: [id number] /
--- NOTE | 2021-12-15 08:12 | XR ---
EXAMINATION TYPE: XR chest 1V DATE OF EXAM: 12/15/2021 COMPARISON: 12/12/2021 HISTORY: Follow-up pneumonia TECHNIQUE: Single frontal view of the chest is obtained. FINDINGS: Postsurgical changes are seen with surgical table. There is persistent right upper lobe an d bilateral subsegmental lower lobe infiltrate. Underlying COPD suspected. Diffuse osteopenia. Heart size stable. No pneumothorax. IMPRESSION: 1. Right upper lobe and bilateral lower lobe atelectasis or infiltrate.
--- NOTE | 2021-12-15 08:36 | PN ---
PROGRESS NOTE HISTORY OF PRESENT ILLNESS: She is status post thoracic burst fracture repair. She is admitted for bilateral pneumonia. She wants something for sleep tonight. We are going to give her Ambien 5 mg at night. She remains on Zosyn and azithromycin for community-acquired pneumonia. She says her pain is not under control. She gets pain medicine every 4 hours. She has been up ambulating in the room a little bit. She is still saturating on 3 L. She may have to go home with oxygen. She has improved. PHYSICAL EXAMINATION: CARDIOVASCULAR: S1, S2. LUNGS: Transmitted upper airway sounds, scattered rhonchi and wheeze. HEMATOLOGY: Negative Homans. PSYCH: Fair mood and affect. ASSESSMENT: Thoracic burst fracture, mucoid pneumonia, COPD. Prognosis guarded. Continue with steroid taper, IV antibiotics, Zosyn and azithromycin. MMODL / IJN: [id number] /
[2021-12-15] MEDS: buPROPion XL 150 MG TAB.ER.24H PO SCH ×2 (09:16→20:41)
[2021-12-15] MEDS: PREGABALIN 75 MG CAP PO SCH ×2 (09:16→20:40)
[2021-12-15] MEDS: CYCLOBENZAPRINE 10 MG TAB PO PRN (09:16)
[2021-12-15] MEDS: HEPARIN SODIUM,PORCINE/PF 5,000 UNIT/0.5 ML SYRINGE SQ SCH ×2 (09:17→20:41)
[2021-12-15] MEDS: PIPERACILLIN-TAZOBACTAM 3.375 GM in SODIUM CHLORIDE 0.9% 100 ML IVPB SCH ×2 (12:09→15:22)
[2021-12-15] MEDS: FUROSEMIDE 10 MG/ML 4 ML VIAL IV SCH (12:10)
[2021-12-15] MEDS: AZITHROMYCIN 500 MG in SODIUM CHLORIDE 0.9% 250 ML IVPB SCH (12:10)
[2021-12-15] MEDS: methylPREDNISolone SOD SUCCI 40 MG/ML 1 ML VIAL IV SCH (12:31)
--- NOTE | 2021-12-15 12:31 | P.PN ---
Subjective Progress Note Date: 12/15/21 Principal diagnosis: Acute hypoxic respiratory failure Aspiration pneumonia T8 burst fracture COPD with acute exacerbation History of lung cancer status post radiation chemotherapy Morbid obesity Fluid overload versus diastolic heart failure 12/15/2021, patient awake and alert sitting upright in chair off of oxygen saturating well remains afebrile still congested some cough is present, IV axis have been infiltrated off of IV, Zosyn can be changed to oral Augmentin for 10 days along with Medrol Dosepak, chest x-ray right upper lobe infiltrate and bilateral basal infiltrate 12/14/2021, patient seen eval reexamined during the rounds labs reviewed medications reviewed patient is 94% on room air breathing more comfortably, patient just have a shower, still have back pain, dry nonproductive cough is present, and denies any chest pain, back pain still there postoperative pain slightly better with pain medicine, no fever or chills present, patient remains afebrile with stable hemodynamics oxygen saturation 96% on 3 L earlier now at room air 94%, patient is status post midline for IV antibiotics and steroids. She is also on bronchodilators with DuoNeb with continuation of home medicines, patient is being gently diuresed with 40 mg Lasix daily also has been on heparin subcu for DVT prophylaxis pain control is with Dilaudid. No radiographic studies done today we'll get a chest x-ray portable tomorrow to look into progressive pneumonia Patient is a morbidly obese 60-year-old female with long-standing history of smoking and nicotine use history of lung cancer status post chemo and radiation therapy. Patient originally admitted into the hospital due to recurrent falls and sharp thoracic pain since August 2021 she was seen in the emergency department placed on pain medicine and back brace without any significant improvement but in fact worsening of pain, patient has been readmitted for T8 fracture with osteoporosis and severe back pain, patient underwent T6 to T10 segmental instrumentation along with open treatment of T8 fracture and with the school placement on December 09. In the last 2 days she has been more short of breath until the point requiring oxygen she also has dry hacking cough transferred to 3 N. for further evaluation. She underwent back to back to computed tomography scan of the chest on December 10 which revealed left lower lobe atelectasis along with extensive infiltrate and volume loss in right lower lobe with no evidence of pulmonary embolism. A follow-up computed tomography scan continue show worsening of infiltrate and both lower lobes along with small pleural effusion and atelectasis no pulmonary embolism identified. Currently patient is treated with bronchodilator 3 times a day with Zithromax 500 mg daily continuation of her home medications with DVT prophylaxis and Zosyn 3.375 every 8 hourly. Her most recent labs include white cell count is 9.6, hemoglobin and hematocrit is 12/41, platelet count down to 124 from 387, d-dimer is 0.68, chemistry within normal limit. Patient is a long-standing history of smoking and nicotine use still smoking few cigarettes a day but used to smoke one to 2 packs per day for about 35-40 years Objective - Vital Signs Vital signs: Vital Signs Temp 98.6 F 12/15/21 12:00 Pulse 91 12/15/21 12:00 Resp 19 12/15/21 12:00 BP 134/91 12/15/21 12:00 Pulse Ox 96 12/15/21 12:00 FiO2 Intake & Output 12/14/21 12/15/21 12/15/21 18:59 06:59 18:59 Intake Total 1090 540 Output Total 600 Balance 1090 -600 540 Weight 95 kg Intake: IV 10 Invasive Line 3 10 Oral 1080 540 Output: Urine 600 Other: Voiding Method Toilet Toilet Toilet # Voids 3 1 # Bowel Movements 2 1 - Exam - Constitutional General appearance: disheveled, morbidly obese - EENT Eyes: EOMI, PERRLA ENT: normal oropharynx Ears: bilateral: normal - Neck Neck: normal ROM Carotids: bilateral: upstroke normal Thyroid: bilateral: normal size - Respiratory Respiratory: bilateral: diminished, rales, wheezing - Cardiovascular Rhythm: regular Heart sounds: normal: S1, S2 - Gastrointestinal General gastrointestinal: decreased bowel sounds, soft - Integumentary Integumentary: normal turgor - Neurologic Neurologic: CNII-XII intact - Musculoskeletal Musculoskeletal: gait normal, generalized weakness, strength equal bilaterally - Psychiatric - Labs CBC & Chem 7: 12/13/21 08:01 12/13/21 08:01 Labs: Microbiology - Last 24 Hours (Table) 12/14/21 02:58 Urine Culture - Final Urine,Voided Assessment and Plan Assessment: Acute hypoxic respiratory failure Aspiration pneumonia T8 burst fracture status post T8 repair and T6 to T10 segmental instrumentation along with open treatment of T8 fracture and with the screw placement on December 09 COPD with acute exacerbation History of lung cancer status post radiation chemotherapy Morbid obesity Fluid overload versus diastolic heart failure Plan: Patient being appropriately treated with IV Zosyn, now off of IV axis can be switched to Augmentin 500 twice a day for 10 days Continue gentle diuresis Continue bronchodilator as needed Continue monitor off of oxygen Continue trial of oral prednisone or Medrol Dosepak DVT prophylaxis Continue supportive care pain management PT OT evaluation Increase activity as tolerated Continue deep breathing size incentive spirometry Follow-up chest x-ray reviewed Pending urine for Legionella Antigen
[2021-12-15] MEDS: ALPRAZolam 0.5 MG TAB PO SCH (20:40)
[2021-12-15] MEDS: AMOXIC-POT CLAV 875-125MG 1 EACH TAB PO SCH (20:41)
--- NOTE | 2021-12-16 05:46 | PN ---
PROGRESS NOTE SUBJECTIVE: White female, status post burst fracture that had been fixed, bilateral pneumonia. She is weaned down on oxygen. She is on room air, saturating in the low 90s. She will go home without oxygen tomorrow with pain control. Switch to oral Augmentin 875, oral Medrol Dosepak. She will go home in the morning. Follow up as an outpatient. . OBJECTIVE: LUNGS: Clear. CARDIOVASCULAR: S1, S2. MUSCULOSKELETAL: She is up ambulating. ASSESSMENT: Bilateral pneumonia, chronic obstructive pulmonary disease, gastroesophageal reflux disease, status post burst fracture. She will be discharged home to follow up as an outpatient tomorrow. MMODL / IJN: [id number] /
[2021-12-16] MEDS: CYCLOBENZAPRINE 10 MG TAB PO PRN (08:24)
[2021-12-16] MEDS: buPROPion XL 150 MG TAB.ER.24H PO SCH (08:24)
[2021-12-16] MEDS: HEPARIN SODIUM,PORCINE/PF 5,000 UNIT/0.5 ML SYRINGE SQ SCH (08:25)
[2021-12-16] MEDS: PREGABALIN 75 MG CAP PO SCH (08:25)
[2021-12-16] MEDS: AMOXIC-POT CLAV 875-125MG 1 EACH TAB PO SCH (08:25)
[2021-12-16] MEDS: FUROSEMIDE 10 MG/ML 4 ML VIAL IV SCH (08:26)
[2021-12-16] MEDS ORDERED: methylPREDNISolone 4 MG TAB TAPER PO SCH (09:00)
[2021-12-16 11:19] VITALS: BP 118/80; PULSE 80; RESP 20; TEMP 97.9
== END 2021-12-16 13:06 | disposition home health service (06) | DRG 518 ==
LOC: 2ORMAIN 11:50 → 5NMEDONC 19:49 → 3SCARD 12-11 20:35
PROVIDERS: ADMIT Family Medicine; ATTEND Family Medicine
PROC: 4A1004G Monitoring of Central Nervous Electrical Activity, Intraoperative, Open Approach (ICD-10-PCS; 2021-12-09)
PROC: 0PS404Z Reposition Thoracic Vertebra with Internal Fixation Device, Open Approach (ICD-10-PCS; principal; 2021-12-09 13:45)
DX: S22.001 Stable burst fracture of unspecified thoracic vertebra (principal); J69.0 Pneumonitis due to inhalation of food and vomit; J96.01 Acute respiratory failure with hypoxia; J44.1 Chronic obstructive pulmonary disease with (acute) exacerbation; J98.11 Atelectasis; E66.01 Morbid (severe) obesity due to excess calories; Z68.37 Body mass index [BMI] 37.0-37.9, adult; S22.061A Stable burst fracture of T7-T8 vertebra, initial encounter for closed fracture; R53.81 Other malaise; G47.8 Other sleep disorders; F17.210 Nicotine dependence, cigarettes, uncomplicated; H91.90 Unspecified hearing loss, unspecified ear; M81.0 Age-related osteoporosis without current pathological fracture; R29.6 Repeated falls; M40.204 Unspecified kyphosis, thoracic region; K21.9 Gastro-esophageal reflux disease without esophagitis; R79.89 Other specified abnormal findings of blood chemistry; F40.240 Claustrophobia; M85.88 Other specified disorders of bone density and structure, other site; E87.70 Fluid overload, unspecified; Z91.81 History of falling; Z85.118 Personal history of other malignant neoplasm of bronchus and lung; Z92.3 Personal history of irradiation; Z92.21 Personal history of antineoplastic chemotherapy; Z98.1 Arthrodesis status; Z86.73 Personal history of transient ischemic attack (TIA), and cerebral infarction without residual deficits; Z88.8 Allergy status to other drugs, medicaments and biological substances; Z79.899 Other long term (current) drug therapy
CPT/HCPCS: 36410; 71045; 71260; 71275; 72070; 72128; 76937; 80053; 83735; 84145; 85025; 85379; 86850; 86900; 86901; 87086; 87449; 94640; 94760

== ENCOUNTER → 2022-03-10 | Outpatient (CLI) | payer MEDICARE, OTHER ==
[2022-03-10 11:59] VITALS: BP 132/81; PULSE 97; RESP 18; TEMP 98.5
--- NOTE | 2022-03-10 12:16 | XR ---
EXAMINATION TYPE: XR lumbar spine 2 or 3V DATE OF EXAM: 03/10/2022 CLINICAL HISTORY: Lumbar pain TECHNIQUE: Three views of the lumbar spine are submitted. COMPARISON: MR lumbar spine 08/07/2017, lumbar spine radiograph 12/19/2016. FINDINGS: There are 5 lumbar type vertebral bodies identified. Post surgical changes with bilateral pedicle scr ews and rods involving L4-S1. Hardware appears intact. Additional partial visualization of the thorac ic fusion hardware. Grade 2 anterolisthesis of L2 on L3 and grade 1 anterolisthesis L3 on L4. Mild mu ltilevel degenerative disc disease with disc space narrowing, endplate sclerosis, and anterior aspect of the cyst. Vertebral body heights are within normal limits with atherosclerosis. The overlying sof t tissue appears unremarkable. Cholecystectomy clips in right upper quadrant. IMPRESSION: 1. No acute fracture or dislocation is seen in the lumbar spine. 2. Postsurgical changes from posterior lumbar fusion. Hardware appears intact. 3. Unchanged grade 2 anterolisthesis L2 on L3 and grade 1 anterolisthesis of L3 on L4.
--- NOTE | 2022-03-10 15:27 | P.PAINPG ---
PQRS Measure Charge Sheet Comment: HISTORY OF PRESENT ILLNESS: 61 yr old female as a referral from Dr Bautista presents today w severe and chronic mid and lower BP x 20 yrs secondary to spondylosis, facet arthropathy without myelopathy for evaluation. Pt states pain level is at 8 /10 in intensity, constant, localized in the lower lumbar spine , pressure in character w shooting pain towards the BLEs. Pain is provoked by bending, lifting. Pain is alleviated by PT integrated w massage years ago, hot showers, heating pad use, medications (Motrin, ASA), lidoderm patches, repositioning and rest. Past Medical History: Cancer, COPD, CVA/TIA, Hearing Disorder / Deafness, Liver Disease, Memory Impairment, Musculoskeletal Disorder, Osteoarthritis (OA) Additional Past Medical History / Comment(s): back pain; "several tia's-not sure when last one was-memory issues, hx. pleurisy, migraines, past falls, "was told at [facility] she had non-alcoholic cirrhosis". lung cancer-had chemo & radiation, currently in remission History of Any Multi-Drug Resistant Organisms: None Reported Past Surgical History: Back Surgery, Breast Surgery, Cholecystectomy, Hysterectomy Additional Past Surgical History / Comment(s): back fusion, cervical fusion. spleenectomy-d/t injury; benign R Breast lumpectomy, sinus sx Past Anesthesia/Blood Transfusion Reactions: No Reported Reaction Additional Past Anesthesia/Blood Transfusion Reaction / Comment(s): Pt hs claustrophobia, no transfusion reactions Smoking Status: Current every day smoker - Past Family History Mother Family Medical History: Cancer Additional Family Medical History / Comment(s): Father History Unknown: Yes Family Medical History: No Reported History Additional Family Medical History / Comment(s): Father was murdered REVIEW OF ORGAN SYSTEMS: CONSTITUTIONAL: No fevers or chills. No recent weight loss. NEUROLOGICAL: + numbness and tingling along the distal extremities. No seizure disorders or headaches. MUSCULOSKELETAL: + pain PSYCHIATRIC: Denies current depression or suicidal thoughts. Physical Examinations : Constitutional : Cooperative , not in acute distress . Neurologic : Cranial nerve II to XII intact. No focal neurological deficits. Psychiatric : alert & oriented x 3. Matching mood & appropriate affect. Judgment & insight intact. Musculoskeletal : Cervical Spine Motor strength in the deltoid and biceps: Normal right side. Normal Left side Motor strength biceps and the wrist extensors: Normal right side . Normal left side Motor strength in the triceps muscle: Normal right side. Normal left side Deep tendon reflexes: Normal at the biceps. Normal at Brachioradialis. Normal at triceps Vertebral body tenderness to deep palpation over Cervical facet loading test: positive bilaterally Spurling test: positive bilaterally Neck distraction test: positive bilaterally Matt sign: positive bilaterally Lumbar spine Motor strength lower extremities ,thigh and legs 5/5 Right side , 5/5 Left side Deep tendon reflexes : Normal Knee Jerk. Normal Ankle Jerk Vertebral body tenderness over L4, L5 Lumbar facet Loading Test: positive Right / positive Left Range of motion of the lumbar spine Flexion 30 degrees, extension 10 degrees Straight Leg Raise test: Left/ Right positive at degree Feliciano test: positive right / positive left. Severe tenderness over the Sacroiliac joint on the Right / Left sides Gaenslen test: positive bilaterally Seated flexion test: positive bilaterally. Sacral spine : Severe tenderness over the Sacroiliac joint: right side / left side Range of motion: Flexion of the lumbar spine <60 degrees Range of motion: Extension of the lumbar spine <20 degrees Gaenslen's Test positive Clement's Test positive Feliciano test: positive right side / left side Thigh Thrust Test Sacral Thrust Test Imaging: CT without contrast of the thoracic spine from 12/09/21 reviewed Assessment/ Plan : Thoracic spondylosis, Lumbar DDD X ray of the lumbar spine re: M51.36. May need additional testing, if indicated. May follow up within 2-4 wks for a re evaluation. Risks, benefits of procedure discussed and patient verbalized understanding. Denies aspirin or anti- coagulant use or medical history of diabetes. Protocol for discontinuation/ continuation of medications vikki procedure discussed. All questions answered. I have spent greater than 30 minutes on patient care today. Dr Alvarado was available by phone for the evaluation of this patient. The time was used to review the medical records including relevant urine studies and Prescription history (MAPs), review of the available imaging, evaluation and examination of the patient, coordination of care with the medical staff and if applicable referring physicians, as well as creation of the medical record PQRS Narrative: Smoking Status Current every day smoker Home Medications: Ambulatory Orders ALPRAZolam [Xanax] 0.5 mg PO HS 08/09/20 Ipratropium-Albuterol Nebulize [Duoneb 0.5 mg-3 mg/3 ml Soln] 3 ml INHALATION RT-TID PRN 08/09/20 buPROPion HCL [Wellbutrin XL] 150 mg PO BID 08/09/20 Cyclobenzaprine [Flexeril] 10 mg PO TID PRN #15 tab 09/15/21 Albuterol Inhaler [Ventolin Hfa Inhaler] 1 - 2 puff INHALATION Q6H PRN 12/08/21 oxyCODONE-APAP 10-325MG [Percocet 10-325 mg] 1 each PO Q6H PRN 12/08/21 Cyclobenzaprine [Flexeril] 10 mg PO TID #21 tab 12/11/21 Pregabalin [Lyrica] 150 mg PO BID #21 cap 12/11/21 Sennosides/Docusate Sodium [Senna Plus 8.6-50 mg Tablet] 1 each PO DAILY #20 tablet 12/11/21 cefaDROXiL [Duricef] 500 mg PO Q12HR 5 Days #10 cap 12/11/21 oxyCODONE-APAP 10-325MG [Percocet 10-325 mg] 1 tab PO Q8HR PRN #21 tab 12/11/21 methylPREDNISolone Dose Pack [Medrol Dose Pack] 24 mg PO DAILY 5 Days #1 tab 12/15/21 Controlled Substance Measures - Controlled Substance Measures Is patient prescribed a controlled substance at discharge?: No
== END ==
LOC: PNWHC3 09:24
PROVIDERS: ATTEND Specialist
DX: M51.36 Other intervertebral disc degeneration, lumbar region (principal); M47.814 Spondylosis without myelopathy or radiculopathy, thoracic region; J44.9 Chronic obstructive pulmonary disease, unspecified; M19.90 Unspecified osteoarthritis, unspecified site; Z86.73 Personal history of transient ischemic attack (TIA), and cerebral infarction without residual deficits; F17.200 Nicotine dependence, unspecified, uncomplicated; Z88.1 Allergy status to other antibiotic agents
CPT/HCPCS: 72100; G0463; 99211

== ENCOUNTER → 2023-03-31 | Outpatient (CLI) | payer MEDICARE, OTHER ==
--- NOTE | 2023-03-31 18:27 | BD ---
EXAMINATION TYPE: Axial Bone Density DATE OF EXAM: 03/31/2023 CLINICAL HISTORY: 62 years old Female. ICD-10 CODE: Z78.0 POST MENOPAUSAL Height: 61 in Weight: 211 lbs FRAX RISK QUESTIONS: History of Fracture in Adulthood: t-spine fx age 61; lt hand fx age 48 Secondary Osteoporosis: 3. Menopause before 45: total hysterectomy age 41 Current Tobacco Use: yes RISK FACTORS HISTORY OF: Spine Fracture: t-spine fx age 61 Surgery to Spine: l-spine surgery age 43 EXAM MEASUREMENTS: Bone mineral densitometry was performed using the [employer] System. Bone mineral density about the R hip (g/cm2): 0.794 Bone mineral density about the L hip (g/cm2): 0.829 T Score values are as follows: -----R Neck: -2.4 -----L Neck: -2.3 -----R Total: -1.7 -----L Total: -1.4 Z Score values are as follows: -----R Neck: -1.6 -----L Neck: -1.5 -----R Total: -1.3 -----L Total: -1.0 Bone mineral density baseline Bone mineral density about the R Wrist (g/cm2): 0.489 T Score values are as follows: -----Dist. R+U: -2.9 -----Prox. R+U: -2.5 -----Radius total: -3.1 Z Score values are as follows: -----Dist. R+U: -1.5 -----Prox. R+U: -1.2 -----Radius total: -1.7 Bone mineral density baseline FRAX%s: The graph provided illustrates a 18.0% chance for a major osteoporotic fx and a 3.3% chance f or the hips probability for fx in 10 years time. IMPRESSION: Osteoporosis (T Score less than -2.5). There is increased fracture risk and therapy is usually indicated based on age. Re-Screen 1-2 years. NOTE: T-SCORE=SD OF THE YOUNG ADULT MEAN.
--- NOTE | 2023-04-03 09:18 | MM ---
Reason for Exam: Screening (asymptomatic). Last mammogram was performed 6 year(s) and 3 month(s) ago. Patient History: Menarche at age 10. Patient has no children. Left ovary removed at age 41. Right ovary removed at age 41. Hysterectomy at age 41. Postmenopausal. Patient used Estrogen for 1 year. 1995, Excisional Biopsy on the Right side. Risk Values: Irlanda 5 year model risk: 2.1%. NCI Lifetime model risk: 8.4%. Prior Study Comparison: 06/11/2003 Bilateral Screening Mammogram, [facility]. 12/19/2016 Bilateral Screening Mammogram, [facility]. Tissue Density: The breast tissue is almost entirely fat. Findings: Analyzed By CAD. There is no suspicious group of microcalcifications or new suspicious mass in either breast. Overall Assessment: Negative, BI-RAD 1 Management: Screening Mammogram of both breasts in 1 year. . Patient should continue monthly self-breast exams. A clinical breast exam by your physician is recommended on an annual basis. This exam should not preclude additional follow-up of suspicious palpable abnormalities. Note on Irlanda scores and lifetime risk: 1. A Irlanda score greater than 3% is considered moderate risk. If this is the case, consider specialist referral to assess eligibility for a risk reducing agent. 2. If overall lifetime risk for the development of breast cancer is 20% or higher, the patient may qualify for future screening with alternating mammogram and breast MRI. Electronically signed and approved by: Wayne Daniels M.D. Radiologis
== END | disposition home or self-care (01) ==
LOC: RADBDWWP 09:56
PROVIDERS: ATTEND Family Medicine
DX: Z12.31 Encounter for screening mammogram for malignant neoplasm of breast (principal); M85.89 Other specified disorders of bone density and structure, multiple sites; M81.0 Age-related osteoporosis without current pathological fracture; Z78.0 Asymptomatic menopausal state
CPT/HCPCS: 77067; 77080

== ENCOUNTER → 2023-05-01 | Outpatient (CLI) | payer MEDICARE, OTHER ==
--- NOTE | 2023-05-01 20:23 | CT ---
EXAMINATION TYPE: CT lumbar spine wo con DATE OF EXAM: 05/01/2023 6:04 PM COMPARISON: 11/18/2011 HISTORY: DDD, chronic lower back pain CT DLP: 1491 mGycm Automated exposure control for dose reduction was used. Unenhanced CT of the lumbar spine was performed. Bone and soft tissue window settings are submitted as well as coronal and sagittal reconstructions. Findings: There is laminectomy and posterior metallic fusion of L4-S1. There is posterior metallic fusion of T9 and T10. There is a grade 2 anterolisthesis of L3 on L4 and there is moderate degenerative disc disease at the L3-4 level where there is moderate disc space narrowing and vacuum phenomena. There has been signifi cant interval worsening in the disc degeneration compared to the previous. There is mild narrowing indicating mild degenerative disease at the L2-3 level. Secondary to the listhesis and marked degeneration of the facet joints, there is severe spinal stenos is at the L3-4 level. There is a mild to moderate stenosis at the L2-3 level secondary to ligamentum flavum and disc bulge as well as facet hypertrophy. There are no large disc disc herniation.. IMPRESSION: 1. Postsurgical changes as described above. 2. Progressive degeneration at the L3-4 level with progressive moderate to possibly severe spinal dalia nosis. 3. Progressive degeneration at the L2-3 level with progressive mild to moderate spinal stenosis.
== END | disposition home or self-care (01) ==
LOC: RADCTMAIN 17:35
PROVIDERS: ATTEND Family Medicine
DX: M51.36 Other intervertebral disc degeneration, lumbar region (principal); M48.061 Spinal stenosis, lumbar region without neurogenic claudication
CPT/HCPCS: 72131

== ENCOUNTER 2024-03-20 16:48 | Inpatient (IN) | payer MEDICARE, OTHER ==
[2024-03-20] MEDS ORDERED: VANCOMYCIN IV PER PHARMACY 1 EACH MISC MISCELLANE PRN (17:07)
[2024-03-20 17:41] LABS: Anisocytosis Slight; Basophils # (A) 0.1 k/uL (0-0.2); Basophils % (A) 0 %; Eosinophils # (A) 0.1 k/uL (0-0.7); Eosinophils % (A) 1 %; HCT 43.2 % (34.0-46.0); HGB 13.8 gm/dL (11.4-16.0); Hypochromasia Slight; Lymphocytes # (A) 3.5 k/uL (1.0-4.8); Lymphocytes % (A) 18 %; MCH 24.9 pg (25.0-35.0); MCHC 31.9 g/dL (31.0-37.0); MCV 77.9 fL (80.0-100.0); Mean Platelet Volume 6.8; Microcytosis Slight; Monocytes # (A) 0.8 k/uL (0-1.0); Monocytes % (A) 4 %; Neutrophils # (A) 14.5 k/uL (1.3-7.7); Neutrophils % (A) 75 %; Platelet Count 751 k/uL (150-450); RBC 5.54 m/uL (3.80-5.40); WBC 19.3 k/uL (3.8-10.6)
[2024-03-20 17:50] LABS: INR 1.1 (<1.2); Partial Thromboplastin Time 24.2 sec (22.0-30.0); Prothrombin Time 11.6 sec (10.0-12.5)
[2024-03-20] MEDS: ONDANSETRON 4 MG/2 ML VIAL IVP STA (17:53)
[2024-03-20] MEDS: MORPHINE SULFATE 4 MG/ML SYRINGE IVP STA (17:53)
[2024-03-20] MEDS: PANTOPRAZOLE 40 MG/10 ML VIAL IVP STA (17:54)
[2024-03-20] MEDS: SODIUM CHLORIDE 0.9% 1,000 ML IV STA ×3 (17:55→22:45)
[2024-03-20] MEDS: VANCOMYCIN 1,500 MG in SODIUM CHLORIDE 0.9% 500 ML 500 ML IVPB STA (17:56)
[2024-03-20 18:01] LABS: ALT 14 U/L (4-34); AST 23 U/L (14-36); Alkaline Phosphatase 111 U/L (38-126); Calcium 8.8 mg/dL (8.4-10.2); Lipase 145 U/L (23-300); Total Bilirubin 0.9 mg/dL (0.2-1.3)
--- NOTE | 2024-03-20 18:04 | ED ---
General Adult HPI - General Chief complaint: Abdominal Pain Stated complaint: weakness Time Seen by Provider: 03/20/24 16:58 Source: patient, EMS, RN notes reviewed, old records reviewed Mode of arrival: EMS Limitations: no limitations - History of Present Illness Initial comments: Patient is a 63-year-old female presents emergency department complaining of abdominal pain. Patient has a past medical history remarkable for back surgery resulting in paraplegia, chronic lower extremity wounds, nonalcoholic cirrhosis, lung cancer. Is on chronic pain meds at home as well. Patient also has a splenectomy. Presents for abdominal pain. States last bowel movement was 3 days ago. Has not pooped since then. Endorses nausea but denies emesis but is endorsing generalized abdominal discomfort. Denies fevers, cough, congestion. No other acute complaints at this time. Presents for further evaluation at this time. Primarily receives care from family members at home. Is bedbound at baseline. - Related Data Home Medications Medication Instructions Recorded Confirmed ALPRAZolam [Xanax] 0.5 mg PO HS 08/09/20 12/08/21 Ipratropium-Albuterol Nebulize 3 ml INHALATION RT-TID PRN 08/09/20 12/08/21 [Duoneb 0.5 mg-3 mg/3 ml Soln] buPROPion HCL [Wellbutrin XL] 150 mg PO BID 08/09/20 12/08/21 Albuterol Inhaler [Ventolin Hfa 1 - 2 puff INHALATION Q6H PRN 12/08/21 12/08/21 Inhaler] oxyCODONE-APAP 10-325MG [Percocet 1 each PO Q6H PRN 12/08/21 12/08/21 10-325 mg] Previous Rx's Medication Instructions Recorded Cyclobenzaprine [Flexeril] 10 mg PO TID PRN #15 tab 09/15/21 Cyclobenzaprine [Flexeril] 10 mg PO TID #21 tab 12/11/21 Pregabalin [Lyrica] 150 mg PO BID #21 cap 12/11/21 Sennosides/Docusate Sodium [Senna 1 each PO DAILY #20 tablet 12/11/21 Plus 8.6-50 mg Tablet] cefaDROXiL [Duricef] 500 mg PO Q12HR 5 Days #10 cap 12/11/21 oxyCODONE-APAP 10-325MG [Percocet 1 tab PO Q8HR PRN #21 tab 12/11/21 10-325 mg] methylPREDNISolone Dose Pack 24 mg PO DAILY 5 Days #1 tab 12/15/21 [Medrol Dose Pack] Allergies Allergy/AdvReac Type Severity Reaction Status Date / Time gentamicin Allergy Anaphylaxis Verified 03/20/24 17:05 Review of Systems ROS Statement: Those systems with pertinent positive or pertinent negative responses have been documented in the HPI. Review of Systems: CONST: Denies fever EYES: Denies blurry vision ENT: Denies nasal congestion C/V: Denies Chest pain RESP: Denies shortness of breath GI: Endorses abdominal pain : Denies dysuria SKIN: Denies rash. MSK: Denies joint pain. NEURO: Denies headache ROS Other: All systems not noted in ROS Statement are negative. Past Medical History Past Medical History: Cancer, Hearing Disorder / Deafness Additional Past Medical History / Comment(s): back pain; "several tia's-Last TIA 1 1/2 YEARS AGO, pluerisy, migraines, past falls, "was told at [facility] she had non-alcoholic cirrhosis". lung cancer History of Any Multi-Drug Resistant Organisms: None Reported Past Surgical History: Back Surgery, Breast Surgery, Hysterectomy Additional Past Surgical History / Comment(s): back sx, neck sx. spleenectomy- d/t injury; benign R Breast lumpectomy, sinus sx Past Anesthesia/Blood Transfusion Reactions: No Reported Reaction Additional Past Anesthesia/Blood Transfusion Reaction / Comment(s): Pt hs clausterphobia Past Psychological History: Depression Smoking Status: Current some day smoker Past Alcohol Use History: None Reported Past Drug Use History: None Reported - Past Family History Mother Family Medical History: Cancer Additional Family Medical History / Comment(s): Father History Unknown: Yes Family Medical History: No Reported History Additional Family Medical History / Comment(s): Father was murdered General Exam - General Exam Comments Initial Comments: General: Appears in mild to moderate distress secondary to abdominal discomfort. HEAD: Normal with no signs of head trauma. EYES: EOMI ENT: Hearing grossly intact, normal oropharynx. RESPIRATORY: Clear breath sounds bilaterally. No wheezes, rales, or rhonchi. C/V: Regular rate and rhythm. S1 and S2 auscultated, no edema, peripheral pulses 2+ and intact throughout ABD: Abdomen is distended. Tender to palpation diffusely as well as in the epigastric and periumbilical region. No guarding. No rebound tenderness. No peritoneal signs. EXT: No obvious deformity. SKIN: Patient has a wound to the posterior aspect of the left foot which appears infected with purulent discharge. NEURO: Alert and oriented x 4. Baseline neuro exam at this time. History of paraplegia. Limitations: no limitations Course Vital Signs 03/20/24 03/20/24 03/20/24 16:55 19:53 21:08 Temperature 97.9 F 97.9 F 97.6 F Pulse Rate 86 85 73 Respiratory 19 20 18 Rate Blood Pressure 115/64 105/69 114/86 O2 Sat by Pulse 98 94 L 95 Oximetry Medical Decision Making - Medical Decision Making Was pt. sent in by a medical professional or institution (, PA, TRIMMING MACHINE SET UP OPERATOR, urgent care, hospital, or fpc...) When possible be specific @ -No Did you speak to anyone other than the patient for history (EMS, parent, family, police, friend...)? What history was obtained from this source @ -No Did you review nursing and triage notes (agree or disagree)? Why? @ -I reviewed and agree with nursing and triage notes Were old charts reviewed (outside hosp., previous admission, EMS record, old EKG, old radiological studies, urgent care reports/EKG's, fpc records)? Report findings @ -Reviewed old charts showing patient's past medical history including cancer. Differential Diagnosis (chest pain, altered mental status, abdominal pain women, abdominal pain men, vaginal bleeding, weakness, fever, dyspnea, syncope, headache, dizziness, GI bleed, back pain, seizure, CVA, palpatations, mental health, musculoskeletal)? @ -Differential Abdominal Pain Women: Appendicitis, Cholecystitis, diverticulosis, ischemic bowel, pancreatitis, hepatitis, UTI, gastroenteritis, AAA, incarcerated hernia, bowel obstruction, constipation, inflammatory bowel, hepatitis, peptic ulcer disease, splenic infarction, perforated viscus, vulvitis, ovarian torsion, PID, kidney stone, placenta abruption, this is not meant to be an all-inclusive list EKG interpreted by me (3pts min.). @ -As above X-rays interpreted by me (1pt min.). @ -Foot x-ray negative for any obvious acute process other than soft tissue swelling and wound present. CT interpreted by me (1pt min.). @ -CT imaging revealed no obvious acute intra-abdominal process. Patient has stool burden. Patient does have some urinary retention. No other acute process present. U/S interpreted by me (1pt. min.). @ -None done What testing was considered but not performed or refused? (CT, X-rays, U/S, labs)? Why? @ -None What meds were considered but not given or refused? Why? @ -None Did you discuss the management of the patient with other professionals (professionals i.e. , PA, TRIMMING MACHINE SET UP OPERATOR, lab, RT, psych nurse, clinical social worker, mine development engineer, teacher, payroll officer, field nurse case manager)? Give summary @ -I spoke with Dr. Pgae who accept the admission. Was smoking cessation discussed for >3mins.? @ -No Was critical care preformed (if so, how long)? @ -Yes, 33 minutes. Were there social determinants of health that impacted care today? How? (Homelessness, low income, unemployed, alcoholism, drug addiction, transportation, low edu. Level, literacy, decrease access to med. care, prison, rehab)? @ -No Was there de-escalation of care discussed even if they declined (Discuss DNR or withdrawal of care, Hospice)? DNR status @ -No What co-morbidities impacted this encounter? (DM, HTN, Smoking, COPD, CAD, Cancer, CVA, ARF, Chemo, Hep., AIDS, mental health diagnosis, sleep apnea, morbid obesity)? @ -Paraplegia, chronic pain Was patient admitted / discharged? Hospital course, mention meds given and route, prescriptions, significant lab abnormalities, going to OR and other pertinent info. @ -Patient presents emergency department with abdominal pain. Also appears to have some cellulitis of the left ankle/foot. Vital signs are within acceptable limits. We will obtain generalized workup and provide symptomatic relief with IV fluids, morphine, Zofran, Protonix. Patient empirically started on vancomycin after wound cultures and blood cultures obtained. Patient was in agreement this plan. EKG as interpreted by the machine shows prolonged QT however I believe this is an overcall as the QT interval calculated by myself is within acceptable limits at 420 ms. Patient empirically will be given a dose of IV magnesium. Imaging ultimately returned unremarkable except for some urinary retention. Patient does endorse not peeing as much. Bladder scan positive for 500 cc urine. [place] catheter placed. Urinalysis was obtained and revealed a UTI. Patient's labs returned remarkable for hypokalemia of 2.5 which was replenished. Patient also has a leukocytosis of 19.3. Mild dehydration as well with a lactic acid of 2.1. Viral swabs negative. Imaging ultimately unremarkable. Patient started on antibiotics. Cultures already obtained and sent and patient has been on antibiotics for her foot wound. Zosyn added to the vancomycin. Infectious disease also consulted. On reevaluation, patient is feeling improved. Discussed results. She will be admitted. Surgery consulted. Patient admitted to [facility]. I spoke with Dr. Page who accept the admission. Undiagnosed new problem with uncertain prognosis? @ -No Drug Therapy requiring intensive monitoring for toxicity (Heparin, Nitro, Insulin, Cardizem)? @ -No Were any procedures done? @ -No Diagnosis/symptom? @ -UTI with urinary retention, hypokalemia, abdominal pain,Cellulitis with open wound to the left heel Acute, or Chronic, or Acute on Chronic? @ -Acute Uncomplicated (without systemic symptoms) or Complicated (systemic symptoms)? @ -Complicated Side effects of treatment? @ -None Exacerbation, Progression, or Severe Exacerbation] @ -No Poses a threat to life or bodily function? @ -Yes - Lab Data Result diagrams: 03/20/24 17:33 03/20/24 17:33 Lab Results 03/20/24 03/20/24 03/20/24 Range/Units 17:14 17:33 17:33 WBC 19.3 H (3.8-10.6) k/uL RBC 5.54 H (3.80-5.40) m/uL Hgb 13.8 (11.4-16.0) gm/dL Hct 43.2 (34.0-46.0) % MCV 77.9 L (80.0-100.0) fL MCH 24.9 L (25.0-35.0) pg MCHC 31.9 (31.0-37.0) g/dL RDW 18.0 H (11.5-15.5) % Plt Count 751 H (150-450) k/uL MPV 6.8 Neutrophils % 75 % Lymphocytes % 18 % Monocytes % 4 % Eosinophils % 1 % Basophils % 0 % Neutrophils # 14.5 H (1.3-7.7) k/uL Lymphocytes # 3.5 (1.0-4.8) k/uL Monocytes # 0.8 (0-1.0) k/uL Eosinophils # 0.1 (0-0.7) k/uL Basophils # 0.1 (0-0.2) k/uL Hypochromasia Slight Anisocytosis Slight Microcytosis Slight PT 11.6 (10.0-12.5) sec INR 1.1 (<1.2) APTT 24.2 (22.0-30.0) sec Sodium (137-145) mmol/L Potassium (3.5-5.1) mmol/L Chloride (98-107) mmol/L Carbon Dioxide (22-30) mmol/L Anion Gap mmol/L BUN (7-17) mg/dL Creatinine (0.52-1.04) mg/dL Est GFR (CKD-EPI)AfAm (>60 ml/min/1.73 sqM) Est GFR (CKD-EPI)NonAf (>60 ml/min/1.73 sqM) Glucose (74-99) mg/dL Lactic Ac Sepsis Rflx Plasma Lactic Acid Paresh (0.7-2.0) mmol/L Calcium (8.4-10.2) mg/dL Total Bilirubin (0.2-1.3) mg/dL AST (14-36) U/L ALT (4-34) U/L Alkaline Phosphatase (38-126) U/L Total Protein (6.3-8.2) g/dL Albumin (3.5-5.0) g/dL Amylase (30-110) U/L Lipase (23-300) U/L Urine Color Urine Appearance (Clear) Urine pH (5.0-8.0) Ur Specific Wayne (1.001-1.035) Urine Protein (Negative) Urine Glucose (UA) (Negative) Urine Ketones (Negative) Urine Blood (Negative) Urine Nitrite (Negative) Urine Bilirubin (Negative) Urine Urobilinogen (<2.0) mg/dL Ur Leukocyte Esterase (Negative) Urine RBC (0-5) /hpf Urine WBC (0-5) /hpf Urine WBC Clumps (None) /hpf Urine Mucus (None) /hpf Influenza Type A (PCR) Not Detected (Not Detectd) Influenza Type B (PCR) Not Detected (Not Detectd) RSV (PCR) Not Detected (Not Detectd) SARS-CoV-2 (PCR) Not Detected (Not Detectd) 03/20/24 03/20/24 03/20/24 Range/Units 17:33 17:33 18:22 WBC (3.8-10.6) k/uL RBC (3.80-5.40) m/uL Hgb (11.4-16.0) gm/dL Hct (34.0-46.0) % MCV (80.0-100.0) fL MCH (25.0-35.0) pg MCHC (31.0-37.0) g/dL RDW (11.5-15.5) % Plt Count (150-450) k/uL MPV Neutrophils % % Lymphocytes % % Monocytes % % Eosinophils % % Basophils % % Neutrophils # (1.3-7.7) k/uL Lymphocytes # (1.0-4.8) k/uL Monocytes # (0-1.0) k/uL Eosinophils # (0-0.7) k/uL Basophils # (0-0.2) k/uL Hypochromasia Anisocytosis Microcytosis PT (10.0-12.5) sec INR (<1.2) APTT (22.0-30.0) sec Sodium 138 (137-145) mmol/L Potassium 2.5 L* (3.5-5.1) mmol/L Chloride 105 (98-107) mmol/L Carbon Dioxide 22 (22-30) mmol/L Anion Gap 11 mmol/L BUN 10 (7-17) mg/dL Creatinine 0.41 L (0.52-1.04) mg/dL Est GFR (CKD-EPI)AfAm >90 (>60 ml/min/1.73 sqM) Est GFR (CKD-EPI)NonAf >90 (>60 ml/min/1.73 sqM) Glucose 121 H (74-99) mg/dL Lactic Ac Sepsis Rflx Y Plasma Lactic Acid Paresh 2.1 H* (0.7-2.0) mmol/L Calcium 8.8 (8.4-10.2) mg/dL Total Bilirubin 0.9 (0.2-1.3) mg/dL AST 23 (14-36) U/L ALT 14 (4-34) U/L Alkaline Phosphatase 111 (38-126) U/L Total Protein 7.1 (6.3-8.2) g/dL Albumin 3.0 L (3.5-5.0) g/dL Amylase 51 (30-110) U/L Lipase 145 (23-300) U/L Urine Color Urine Appearance (Clear) Urine pH (5.0-8.0) Ur Specific Wayne (1.001-1.035) Urine Protein (Negative) Urine Glucose (UA) (Negative) Urine Ketones (Negative) Urine Blood (Negative) Urine Nitrite (Negative) Urine Bilirubin (Negative) Urine Urobilinogen (<2.0) mg/dL Ur Leukocyte Esterase (Negative) Urine RBC (0-5) /hpf Urine WBC (0-5) /hpf Urine WBC Clumps (None) /hpf Urine Mucus (None) /hpf Influenza Type A (PCR) (Not Detectd) Influenza Type B (PCR) (Not Detectd) RSV (PCR) (Not Detectd) SARS-CoV-2 (PCR) (Not Detectd) 03/20/24 03/20/24 Range/Units 20:29 20:52 WBC (3.8-10.6) k/uL RBC (3.80-5.40) m/uL Hgb (11.4-16.0) gm/dL Hct (34.0-46.0) % MCV (80.0-100.0) fL MCH (25.0-35.0) pg MCHC (31.0-37.0) g/dL RDW (11.5-15.5) % Plt Count (150-450) k/uL MPV Neutrophils % % Lymphocytes % % Monocytes % % Eosinophils % % Basophils % % Neutrophils # (1.3-7.7) k/uL Lymphocytes # (1.0-4.8) k/uL Monocytes # (0-1.0) k/uL Eosinophils # (0-0.7) k/uL Basophils # (0-0.2) k/uL Hypochromasia Anisocytosis Microcytosis PT (10.0-12.5) sec INR (<1.2) APTT (22.0-30.0) sec Sodium (137-145) mmol/L Potassium (3.5-5.1) mmol/L Chloride (98-107) mmol/L Carbon Dioxide (22-30) mmol/L Anion Gap mmol/L BUN (7-17) mg/dL Creatinine (0.52-1.04) mg/dL Est GFR (CKD-EPI)AfAm (>60 ml/min/1.73 sqM) Est GFR (CKD-EPI)NonAf (>60 ml/min/1.73 sqM) Glucose (74-99) mg/dL Lactic Ac Sepsis Rflx Plasma Lactic Acid Paresh 1.1 (0.7-2.0) mmol/L Calcium (8.4-10.2) mg/dL Total Bilirubin (0.2-1.3) mg/dL AST (14-36) U/L ALT (4-34) U/L Alkaline Phosphatase (38-126) U/L Total Protein (6.3-8.2) g/dL Albumin (3.5-5.0) g/dL Amylase (30-110) U/L Lipase (23-300) U/L Urine Color Yellow Urine Appearance Turbid H (Clear) Urine pH 8.0 (5.0-8.0) Ur Specific Wayne 1.016 (1.001-1.035) Urine Protein 1+ H (Negative) Urine Glucose (UA) Negative (Negative) Urine Ketones Negative (Negative) Urine Blood Moderate H (Negative) Urine Nitrite Negative (Negative) Urine Bilirubin Negative (Negative) Urine Urobilinogen <2.0 (<2.0) mg/dL Ur Leukocyte Esterase Large H (Negative) Urine RBC 176 H (0-5) /hpf Urine WBC >182 H (0-5) /hpf Urine WBC Clumps Occasional H (None) /hpf Urine Mucus Many H (None) /hpf Influenza Type A (PCR) (Not Detectd) Influenza Type B (PCR) (Not Detectd) RSV (PCR) (Not Detectd) SARS-CoV-2 (PCR) (Not Detectd) - EKG Data -: EKG Interpreted by Me EKG Comments: 12-lead Electrocardiogram Interpretation Note EKG was reviewed and interpreted by myself. 12-lead ECG performed at 1715 is interpreted by me as revealing normal sinus rhythm at a rate of 86 beats per minute. [place] is normal. IA interval is 171 ms, QRS duration is 90 ms, QTc is 510 ms as documented by the machine. QT is interpreted by myself appears to be 420 ms which is less than the QT calculated by the machine. I do believe that the prolonged QT interval calculated by the machine is incorrect.. There were no ST or T wave abnormalities to suggest myocardial ischemia or injury. R wave progression across the precordium was satisfactory. By my interpretation this EKG is non-diagnostic for acute ischemia. Critical Care Time Critical Care Time: Yes Total Critical Care Time: 33 Disposition Clinical Impression: Abdominal pain, Hypokalemia, UTI (urinary tract infection), Open wound of heel, Cellulitis Disposition: ADMITTED IP TO THIS HOSP Condition: Serious Time of Disposition: 21:15
[2024-03-20 18:13] LABS: Influenza A Not Detected (Not Detectd); Influenza B Not Detected (Not Detectd); RSV Not Detected (Not Detectd)
[2024-03-20 18:30] LABS: African American GFR (CKD) >90 (>60 ml/min/1.73 sqM); Amylase 51 U/L (30-110); Anion Gap 11 mmol/L; Blood Urea Nitrogen 10 mg/dL (7-17); Carbon Dioxide 22 mmol/L (22-30); Chloride 105 mmol/L (98-107); Glucose 121 mg/dL (74-99); Non-African American GFR(CKD) >90 (>60 ml/min/1.73 sqM); Sodium 138 mmol/L (137-145); Total Protein 7.1 g/dL (6.3-8.2)
[2024-03-20] MEDS: MAGNESIUM SULFATE-D5W PMX 1 GM in DEXTROSE/WATER 1 100ML.BAG IVPB ONE (18:43)
[2024-03-20 18:51] LABS: Potassium 2.5 mmol/L (3.5-5.1)
--- NOTE | 2024-03-20 18:53 | XR ---
EXAMINATION TYPE: XR ankle limited LT DATE OF EXAM: 03/20/2024 6:18 PM COMPARISON: None CLINICAL INDICATION: Female, 63 years old with history of eval for osteomyelitis; PHH, soft tissue wo und. TECHNIQUE: XR ankle limited LT; frontal, lateral and oblique projections. FINDINGS: There is no evidence of acute osseous pathology. No evidence of subluxation or dislocation. Kager's fat pad is intact. No radiopaque foreign bodies are identified. Soft tissue defect of the calcaneus, No evidence of osseous erosion to suggest osteomyelitis. IMPRESSION: 1. No evidence of acute fracture. 2. Calcaneal wound, No evidence for osseous erosion [facility], , 03/20/2024 6:51 PM
[2024-03-20] MEDS: HYDROmorphone 0.5 MG/0.5 ML SYRINGE IVP STA (19:02)
--- NOTE | 2024-03-20 20:12 | CT ---
EXAMINATION TYPE: CT abdomen pelvis w con DATE OF EXAM: 03/20/2024 7:39 PM COMPARISON: 05/01/2023. CLINICAL INDICATION: Female, 63 years old with history of abdominal pain, generalized; Generalized ab dominal pain, pt doesn't know when they had their last bowel movement. TECHNIQUE: Axial CT abdomen pelvis w con;Sagittal and coronal reformats were created on a separate w orkstation. Contrast used:100cc mL of Isovue 300 with IV Contrast, (none if empty) Oral contrast used: without Oral Contrast (none if empty) CT DLP: 1673 mGycm, Automated exposure control for dose reduction was used. FINDINGS: LOWER CHEST: Unremarkable ABDOMEN LIVER: Unremarkable GALLBLADDER AND BILE DUCTS: The gallbladder is surgically absent. PANCREAS: Unremarkable. SPLEEN: Unremarkable. ADRENAL GLANDS: Unremarkable. KIDNEYS AND URETERS: Mild bilateral hydronephrosis. Nonobstructing renal calculi bilaterally measurin g up to 5 mm on the right and 2 mm on the left. Mild bilateral hydroureter. PELVIS BLADDER: Distended urinary bladder. REPRODUCTIVE: The uterus is surgically absent. ABDOMEN & PELVIS STOMACH AND BOWEL: No evidence of bowel obstruction. Moderate amount stool throughout the colon. PERITONEUM/RETROPERITONEUM: No evidence of pneumoperitoneum or free fluid. VASCULATURE: Moderate atherosclerotic calcifications are present throughout the abdominal aorta and i ts branches. No evidence of aortic aneurysm. MUSCULOSKELETAL: Extensive postsurgical changes to the spine including L4 L5 S1 and T9-T12 visualized . Hardware appears intact. Grade 1 anterolisthesis of L3 on L4. LYMPH NODES: No gross evidence for lymphadenopathy. SOFT TISSUE/ABDOMINAL WALL: Small fat-containing umbilical hernia. IMPRESSION: 1. Distended urinary bladder with mild bilateral hydronephrosis correlate for last void. No obstruct ing calculus visualized. No additional acute abdominal process. 2. Nonobstructing bilateral renal calculi. 3. Moderate amount stool in the colon. 4. Extensive surgical changes spine with hardware intact. [facility], , 03/20/2024 8:09 PM
[2024-03-20] MEDS: POTASSIUM CHLORIDE 10 MEQ in WATER FOR INJECTION 1 100ML.BAG IVPB SCH (21:00)
[2024-03-20] MEDS: PIPERACILLIN-TAZOBACTAM 3.375 GM in SODIUM CHLORIDE 0.9% 100 ML IVPB STA (21:03)
[2024-03-20 21:13] LABS: Appearance,Urine Turbid (Clear); Bilirubin,Urine Negative (Negative); Blood,Urine Moderate (Negative); Color,Urine Yellow; Glucose,Urine (UA) Negative (Negative); Ketones,Urine Negative (Negative); Leukocyte Esterase,Urine Large (Negative); Mucus,Urine Many /hpf; Nitrite,Urine Negative (Negative); Protein,Urine 1+ (Negative); RBC,Urine 176 /hpf (0-5); Specific Gravity,Urine 1.016 (1.001-1.035); Urobilinogen,Urine <2.0 mg/dL (<2.0); WBC,Urine >182 /hpf (0-5)
[2024-03-20] MEDS ORDERED: ACETAMINOPHEN TAB 325 MG TAB PO PRN (21:21)
[2024-03-20] MEDS ORDERED: NALOXONE 0.4 MG/ML 1 ML VIAL IV PRN (21:21)
[2024-03-21] MEDS: HYDROmorphone 0.5 MG/0.5 ML SYRINGE IVP PRN (01:40)
[2024-03-21] MEDS: ONDANSETRON 4 MG/2 ML VIAL IVP PRN (06:34)
[2024-03-21] MEDS: PANTOPRAZOLE 40 MG/10 ML VIAL IV SCH (08:17)
[2024-03-21] MEDS ORDERED: IPRATROPIUM-ALBUTEROL 3 ML NEB INHALATION PRN (10:05)
[2024-03-21] MEDS: VANCOMYCIN 1,500 MG in SODIUM CHLORIDE 0.9% 500 ML 500 ML IVPB SCH (10:06)
[2024-03-21 11:23] LABS: ALT 14 U/L (4-34); AST 23 U/L (14-36); African American GFR (CKD) >90 (>60 ml/min/1.73 sqM); Albumin 2.7 g/dL (3.5-5.0); Alkaline Phosphatase 97 U/L (38-126); Anion Gap 10 mmol/L; Blood Urea Nitrogen 8 mg/dL (7-17); Carbon Dioxide 21 mmol/L (22-30); Chloride 106 mmol/L (98-107); Glucose 112 mg/dL (74-99); Non-African American GFR(CKD) >90 (>60 ml/min/1.73 sqM); Potassium 3.2 mmol/L (3.5-5.1); Sodium 137 mmol/L (137-145); Total Bilirubin 0.6 mg/dL (0.2-1.3); Total Protein 6.4 g/dL (6.3-8.2)
[2024-03-21 11:42] LABS: Anisocytosis Slight; Basophils % (A) 0 %; Eosinophils # (A) 0.2 k/uL (0-0.7); Eosinophils % (A) 1 %; HCT 42.6 % (34.0-46.0); HGB 13.3 gm/dL (11.4-16.0); Hypochromasia Slight; Lymphocytes # (A) 2.1 k/uL (1.0-4.8); Lymphocytes % (A) 11 %; MCH 25.2 pg (25.0-35.0); MCHC 31.2 g/dL (31.0-37.0); MCV 80.8 fL (80.0-100.0); Mean Platelet Volume 8.1; Microcytosis Slight; Monocytes # (A) 1.5 k/uL (0-1.0); Monocytes % (A) 8 %; Neutrophils % (A) 79 %; Platelet Count 279 k/uL (150-450); RBC 5.27 m/uL (3.80-5.40); RDW 18.3 % (11.5-15.5); WBC 19.1 k/uL (3.8-10.6)
--- NOTE | 2024-03-21 13:17 | P.HPIM ---
History of Present Illness H&P Date: 03/21/24 History of present illness; patient 63-year-old lady with past medical history significant for paraplegia, back surgery, chronic lower extremity wounds, splenectomy presents the ER for abdominal pain. Patient stated she was all right 3 days back when she started having abdominal pain. Patient abdominal pain was generalized, cramping in nature, no radiating or relieving factor associated abdominal pain. Patient was complaining of nausea but no vomiting. Patient last bowel movement was 3 days ago. There was no complaint of fever or chills. There was no complaint of chest pain or shortness of breath. Patient also had pain in her left ankle with swelling, states it was secondary to pressu re injury from laying in the bed. Denies any trauma. Patient is bedridden. Because of this abdominal pain, patient brought to the ER Initial lab work done in the ER showed WBC 19.3, hemoglobin 13.8, platelet count 751, sodium 130, potassium 2.5, lactate 2.1, UA positive for leukocyte Estrace, urine WBC 182, Influenza A not detected Influenza B not detected RSV not detected COVID-[address] abdomen pelvis done showed distended urinary bladder with mild bilateral hydronephrosis no obstructing calculus visualized EKG done in the ER showed heart rate of 86 , no ST segment elevation or d epression seen, no T-wave inversions seen. X-ray ankle done showed no evidence of acute fracture Patient admitted to internal medicine service REVIEW OF SYSTEMS: CONSTITUTIONAL: No fever, no malaise, no fatigue. HEENT: No recent visual problems or hearing problems. Denied any sore throat. CARDIOVASCULAR: No chest pain, orthopnea, PND, no palpitations, no syncope. PULMONARY: No shortness of breath, no cough, no hemoptysis. GASTROINTESTINAL: As mentioned above NEUROLOGICAL: No headaches, no weakness, no numbness. HEMATOLOGICAL: Denies any bleeding or petechiae. GENITOURINARY: As mentioned above MUSCULOSKELETAL/RHEUMATOLOGICAL: Denies any joint pain, swelling, or any muscle pain. ENDOCRINE: Denies any polyuria or polydipsia. The rest of the 14-point review of systems is negative. PHYSICAL EXAMINATION: GENERAL: The patient is alert and oriented x3, not in any acute distress. Well developed, well nourished. HEENT: Pupils are round and equally reacting to light. EOMI. No scleral icterus. No conjunctival pallor. Normocephalic, atraumatic. No pharyngeal erythema. No thyromegaly. CARDIOVASCULAR: S1 and S2 present. No murmurs, rubs, or gallops. PULMONARY: Chest is clear to auscultation, no wheezing or crackles. ABDOMEN: Soft, nontender, nondistended, normoactive bowel sounds. No palpable organomegaly. MUSCULOSKELETAL: No joint swelling or deformity. EXTREMITIES: No cyanosis, clubbing, or pedal edema. NEUROLOGICAL: Gross neurological examination did not reveal any focal deficits. SKIN: No rashes. Assessment and plan Sepsis UTI Hypokalemia Lactic acidosis Left foot cellulitis Urine retention Bilateral hydronephrosis Paraplegia History of back surgery Monitor vital signs Monitor CBC Monitor CMP Continue telemetry monitoring Ordered blood cultures Ordered urine cultures ordered IV fluids Ordered IV Rocephin and vancomycin Ordered antiemetics Consult ID Consult surgery Labs and medication were reviewed.. Continue same treatment. Continue with symptomatic treatment. Resume home medication. Monitor labs and vitals. DVT and GI prophylaxis. Further recommendations as per clinical course of the patient Dictation was produced using [employer] dictation software. please excuse any grammatical, word or spelling errors. Past Medical History Past Medical History: Cancer, Hearing Disorder / Deafness Additional Past Medical History / Comment(s): back pain; "several tia's-Last TIA 1 1/2 YEARS AGO, pluerisy, migraines, past falls, "was told at [facility] she had non-alcoholic cirrhosis". lung cancer History of Any Multi-Drug Resistant Organisms: None Reported Past Surgical History: Back Surgery, Breast Surgery, Hysterectomy Additional Past Surgical History / Comment(s): back sx, neck sx. spleenectomy- d/t injury; benign R Breast lumpectomy, sinus sx Past Anesthesia/Blood Transfusion Reactions: No Reported Reaction Additional Past Anesthesia/Blood Transfusion Reaction / Comment(s): Pt hs clausterphobia Past Psychological History: Depression Smoking Status: Current some day smoker Past Alcohol Use History: None Reported Past Drug Use History: None Reported - Past Family History Mother Family Medical History: Cancer Additional Family Medical History / Comment(s): Father History Unknown: Yes Family Medical History: No Reported History Additional Family Medical History / Comment(s): Father was murdered Medications and Allergies Home Medications Medication Instructions Recorded Confirmed Type Atorvastatin [Lipitor] 80 mg PO HS 03/21/24 03/21/24 History DULoxetine HCL [Cymbalta] 60 mg PO DAILY 03/21/24 03/21/24 History Fluticasone Propion/Salmeterol 1 puff INHALATION RT-BID 03/21/24 03/21/24 History [Fluticasone-Salmeterol 250-50] Gabapentin [Neurontin] 300 mg PO TID 03/21/24 03/21/24 History Ipratropium-Albuterol Nebulize 3 ml INHALATION RT-TID PRN 03/21/24 03/21/24 History [Duoneb 0.5 mg-3 mg/3 ml Soln] Metoprolol Tartrate [Lopressor] 25 mg PO BID 03/21/24 03/21/24 History Ondansetron [Zofran] 4 mg PO Q6H PRN 03/21/24 03/21/24 History oxyCODONE HCL [Roxicodone] 5 mg PO Q6HR PRN 03/21/24 03/21/24 History Allergies Allergy/AdvReac Type Severity Reaction Status Date / Time gentamicin Allergy Anaphylaxis Verified 03/21/24 09:54 Physical Exam Vitals: Vital Signs Temp Pulse Resp BP Pulse Ox 03/21/24 08:14 79 18 92/60 92 L 03/21/24 06:38 97.9 F 91 19 118/75 93 L 03/21/24 01:38 84 17 103/62 94 L 03/20/24 23:01 79 18 106/71 94 L 03/20/24 21:08 97.6 F 73 18 114/86 95 03/20/24 19:53 97.9 F 85 20 105/69 94 L 03/20/24 16:55 97.9 F 86 19 115/64 98 Intake and Output 03/20/24 03/21/24 03/21/24 22:59 06:59 14:59 Output Total 1100 Balance -1100 Output: Urine 1100 Uretheral (Llanes) 1100 Other: Weight 90.718 kg Results CBC & Chem 7: 03/21/24 10:54 03/21/24 10:54 Labs: Abnormal Lab Results - Last 24 Hours (Table) 03/20/24 03/20/24 03/20/24 Range/Units 17:33 17:33 17:33 WBC 19.3 H (3.8-10.6) k/uL RBC 5.54 H (3.80-5.40) m/uL MCV 77.9 L (80.0-100.0) fL MCH 24.9 L (25.0-35.0) pg RDW 18.0 H (11.5-15.5) % Plt Count 751 H (150-450) k/uL Neutrophils # 14.5 H (1.3-7.7) k/uL Potassium 2.5 L* (3.5-5.1) mmol/L Creatinine 0.41 L (0.52-1.04) mg/dL Glucose 121 H (74-99) mg/dL Plasma Lactic Acid Paresh 2.1 H* (0.7-2.0) mmol/L Albumin 3.0 L (3.5-5.0) g/dL Urine Appearance (Clear) Urine Protein (Negative) Urine Blood (Negative) Ur Leukocyte Esterase (Negative) Urine RBC (0-5) /hpf Urine WBC (0-5) /hpf Urine WBC Clumps (None) /hpf Urine Mucus (None) /hpf 03/20/24 Range/Units 20:52 WBC (3.8-10.6) k/uL RBC (3.80-5.40) m/uL MCV (80.0-100.0) fL MCH (25.0-35.0) pg RDW (11.5-15.5) % Plt Count (150-450) k/uL Neutrophils # (1.3-7.7) k/uL Potassium (3.5-5.1) mmol/L Creatinine (0.52-1.04) mg/dL Glucose (74-99) mg/dL Plasma Lactic Acid Paresh (0.7-2.0) mmol/L Albumin (3.5-5.0) g/dL Urine Appearance Turbid H (Clear) Urine Protein 1+ H (Negative) Urine Blood Moderate H (Negative) Ur Leukocyte Esterase Large H (Negative) Urine RBC 176 H (0-5) /hpf Urine WBC >182 H (0-5) /hpf Urine WBC Clumps Occasional H (None) /hpf Urine Mucus Many H (None) /hpf Microbiology - Last 24 Hours (Table) 01/15/25 17:14 Gram Stain - Preliminary Ankle - Left
[2024-03-21 14:10] LABS: Crenated RBC Present
[2024-03-21 14:35] VITALS: BMI 37.8
--- NOTE | 2024-03-21 14:42 | P.GSCN ---
History of Present Illness Consult date: 03/21/24 History of present illness: CHIEF COMPLAINT: Abdominal pain HISTORY OF PRESENT ILLNESS: This is a 63-year-old female who is a paraplegic after back surgery. She does use narcotics at home for her chronic pain. She has not had a bowel movement in 3 days. She did have some nausea and vomiting yesterday. This has now improved. She had a CT scan abdomen pelvis that had reported a distended bladder and moderate stool throughout the colon. Patient did have Llanes catheter placed for urinary retention. Surgical service was consulted for abdominal pain. He is on antibiotics for heel wound and UTI. Seen by infectious disease. PAST MEDICAL HISTORY: Lung cancer,several tia's-Last TIA 1 1/2 YEARS AGO, pluerisy, migraines, past falls, "was told at [facility] she had non-alcoholic cirrhosis". lung cancer PAST SURGICAL HISTORY: Back surgery, hysterectomy, lumpectomy of the right breast, splenectomy due to injury MEDICATIONS: See below ALLERGIES: See below SOCIAL HISTORY: No illicit drug use. REVIEW OF SYSTEMS: CONSTITUTIONAL: Denies fever or chills. HEENT: Denies blurred vision, vision changes, or eye pain. Denies hemoptysis CARDIOVASCULAR: Denies chest pain or pressure. RESPIRATORY: No shortness of breath. GASTROINTESTINAL: See HPI for pertinent findings HEMATOLOGIC: Denies bleeding disorders. GENITOURINARY: Denies any blood in urine or increased urinary frequency. SKIN: Denies pruitis. Denies rash. PHYSICAL EXAM: VITAL SIGNS: Reviewed GENERAL: Well-developed in no acute distress. HEENT: No sclera icterus. Extraocular movements grossly intact. Moist buccal mucosa. Head is atraumatic, normocephalic. No nasal drainage. ABDOMEN: Soft. Nondistended. Mild tenderness to palpation of lower abdomen. NEUROLOGIC: Alert and oriented. Cranial nerves II through XII grossly intact. LABORATORY DATA: WBC is 19.1 Hgb 13.3 platelets 279 Sodium is 137 potassium 2.5 up to 3.2 creatinine 0.42 Lactic acid 2.1 down to 1.1 IMAGING: CT scan abdomen pelvis reports distended urinary bladder with mild bilateral hydronephrosis. No acute abdominal process. Nonobstructing bilateral renal calculi. Moderate amount of stool throughout the colon. ASSESSMENT: 1. Constipation with CT scan findings of moderate amount of stool throughout the colon 2. Urinary retention status post Llanes catheter placement 3. Hypokalemia receiving supplement PLAN: -Soapsuds enema and lactulose ordered for constipation -Will plan for possible colonoscopy on Monday with Dr. Clifford Physician Charge Accounts Audit Clerk note has been reviewed by physician. Signing provider agrees with the documented findings, assessment, and plan of care. Past Medical History Past Medical History: Cancer, Hearing Disorder / Deafness Additional Past Medical History / Comment(s): back pain; "several tia's-Last TIA 1 1/2 YEARS AGO, pluerisy, migraines, past falls, "was told at [facility] she had non-alcoholic cirrhosis". lung cancer History of Any Multi-Drug Resistant Organisms: None Reported Past Surgical History: Back Surgery, Breast Surgery, Hysterectomy Additional Past Surgical History / Comment(s): back sx, neck sx. spleenectomy- d/t injury; benign R Breast lumpectomy, sinus sx Past Anesthesia/Blood Transfusion Reactions: No Reported Reaction Additional Past Anesthesia/Blood Transfusion Reaction / Comm: Pt hs clausterphobia Past Psychological History: Depression Smoking Status: Current some day smoker Past Alcohol Use History: None Reported Past Drug Use History: None Reported - Past Family History Mother Family Medical History: Cancer Additional Family Medical History / Comment(s): Father History Unknown: Yes Family Medical History: No Reported History Additional Family Medical History / Comment(s): Father was murdered Medications and Allergies Home Medications Medication Instructions Recorded Confirmed Type Atorvastatin [Lipitor] 80 mg PO HS 03/21/24 03/21/24 History DULoxetine HCL [Cymbalta] 60 mg PO DAILY 03/21/24 03/21/24 History Fluticasone Propion/Salmeterol 1 puff INHALATION RT-BID 03/21/24 03/21/24 History [Fluticasone-Salmeterol 250-50] Gabapentin [Neurontin] 300 mg PO TID 03/21/24 03/21/24 History Ipratropium-Albuterol Nebulize 3 ml INHALATION RT-TID PRN 03/21/24 03/21/24 History [Duoneb 0.5 mg-3 mg/3 ml Soln] Metoprolol Tartrate [Lopressor] 25 mg PO BID 03/21/24 03/21/24 History Ondansetron [Zofran] 4 mg PO Q6H PRN 03/21/24 03/21/24 History oxyCODONE HCL [Roxicodone] 5 mg PO Q6HR PRN 03/21/24 03/21/24 History Allergies Allergy/AdvReac Type Severity Reaction Status Date / Time gentamicin Allergy Anaphylaxis Verified 03/21/24 09:54 Surgical - Exam Vital Signs Temp Pulse Resp BP Pulse Ox 97.9 F 86 19 115/64 98 03/20/24 16:55 03/20/24 16:55 03/20/24 16:55 03/20/24 16:55 03/20/24 16:55 Results - Labs 03/21/24 10:54 03/21/24 10:54 Abnormal Lab Results - Last 24 Hours (Table) 03/20/24 03/20/24 03/20/24 Range/Units 17:33 17:33 17:33 WBC 19.3 H (3.8-10.6) k/uL RBC 5.54 H (3.80-5.40) m/uL MCV 77.9 L (80.0-100.0) fL MCH 24.9 L (25.0-35.0) pg RDW 18.0 H (11.5-15.5) % Plt Count 751 H (150-450) k/uL Neutrophils # 14.5 H (1.3-7.7) k/uL Potassium 2.5 L* (3.5-5.1) mmol/L Carbon Dioxide (22-30) mmol/L Creatinine 0.41 L (0.52-1.04) mg/dL Glucose 121 H (74-99) mg/dL Plasma Lactic Acid Paresh 2.1 H* (0.7-2.0) mmol/L Calcium (8.4-10.2) mg/dL Albumin 3.0 L (3.5-5.0) g/dL Urine Appearance (Clear) Urine Protein (Negative) Urine Blood (Negative) Ur Leukocyte Esterase (Negative) Urine RBC (0-5) /hpf Urine WBC (0-5) /hpf Urine WBC Clumps (None) /hpf Urine Mucus (None) /hpf 03/20/24 03/21/24 03/21/24 Range/Units 20:52 10:54 10:54 WBC 19.1 H (3.8-10.6) k/uL RBC (3.80-5.40) m/uL MCV (80.0-100.0) fL MCH (25.0-35.0) pg RDW 18.3 H (11.5-15.5) % Plt Count (150-450) k/uL Neutrophils # (1.3-7.7) k/uL Potassium 3.2 L (3.5-5.1) mmol/L Carbon Dioxide 21 L (22-30) mmol/L Creatinine 0.42 L (0.52-1.04) mg/dL Glucose 112 H (74-99) mg/dL Plasma Lactic Acid Paresh (0.7-2.0) mmol/L Calcium 8.0 L (8.4-10.2) mg/dL Albumin 2.7 L (3.5-5.0) g/dL Urine Appearance Turbid H (Clear) Urine Protein 1+ H (Negative) Urine Blood Moderate H (Negative) Ur Leukocyte Esterase Large H (Negative) Urine RBC 176 H (0-5) /hpf Urine WBC >182 H (0-5) /hpf Urine WBC Clumps Occasional H (None) /hpf Urine Mucus Many H (None) /hpf Microbiology - Last 24 Hours (Table) 03/20/24 23:01 Gram Stain - Preliminary Foot - Left 03/20/24 17:14 Gram Stain - Preliminary Ankle - Left Diabetes panel 03/20/24 03/21/24 Range/Units 17:33 10:54 Sodium 138 137 (137-145) mmol/L Potassium 2.5 L* 3.2 L (3.5-5.1) mmol/L Chloride 105 106 (98-107) mmol/L Carbon Dioxide 22 21 L (22-30) mmol/L BUN 10 8 (7-17) mg/dL Creatinine 0.41 L 0.42 L (0.52-1.04) mg/dL Glucose 121 H 112 H (74-99) mg/dL Calcium 8.8 8.0 L (8.4-10.2) mg/dL AST 23 23 (14-36) U/L ALT 14 14 (4-34) U/L Alkaline Phosphatase 111 97 (38-126) U/L Total Protein 7.1 6.4 (6.3-8.2) g/dL Albumin 3.0 L 2.7 L (3.5-5.0) g/dL Calcium panel 03/20/24 03/21/24 Range/Units 17:33 10:54 Calcium 8.8 8.0 L (8.4-10.2) mg/dL Albumin 3.0 L 2.7 L (3.5-5.0) g/dL Pituitary panel 03/20/24 03/21/24 Range/Units 17:33 10:54 Sodium 138 137 (137-145) mmol/L Potassium 2.5 L* 3.2 L (3.5-5.1) mmol/L Chloride 105 106 (98-107) mmol/L Carbon Dioxide 22 21 L (22-30) mmol/L BUN 10 8 (7-17) mg/dL Creatinine 0.41 L 0.42 L (0.52-1.04) mg/dL Glucose 121 H 112 H (74-99) mg/dL Calcium 8.8 8.0 L (8.4-10.2) mg/dL Adrenal panel 03/20/24 03/21/24 Range/Units 17:33 10:54 Sodium 138 137 (137-145) mmol/L Potassium 2.5 L* 3.2 L (3.5-5.1) mmol/L Chloride 105 106 (98-107) mmol/L Carbon Dioxide 22 21 L (22-30) mmol/L BUN 10 8 (7-17) mg/dL Creatinine 0.41 L 0.42 L (0.52-1.04) mg/dL Glucose 121 H 112 H (74-99) mg/dL Calcium 8.8 8.0 L (8.4-10.2) mg/dL Total Bilirubin 0.9 0.6 (0.2-1.3) mg/dL AST 23 23 (14-36) U/L ALT 14 14 (4-34) U/L Alkaline Phosphatase 111 97 (38-126) U/L Total Protein 7.1 6.4 (6.3-8.2) g/dL Albumin 3.0 L 2.7 L (3.5-5.0) g/dL
[2024-03-21] MEDS: GABAPENTIN 300 MG CAP PO SCH (15:28)
[2024-03-21] MEDS: DOCUSATE 283 MG/5 ML ENEMA RECTAL STA (17:44)
[2024-03-21] MEDS: SODIUM CHLORIDE 0.9% 1,000 ML IV SCH (18:34)
[2024-03-21] MEDS: SYMBICORT 80-4.5 MCG INHALER INHALATION SCH (20:39)
[2024-03-21] MEDS: ATORVASTATIN 80 MG TAB PO SCH (21:21)
[2024-03-21] MEDS: METOPROLOL TARTRATE 25 MG TAB PO SCH (21:21)
[2024-03-21] MEDS: LACTULOSE 20 GM/30 ML CUP PO SCH (21:23)
[2024-03-22 03:58] LABS: African American GFR (CKD) >90 (>60 ml/min/1.73 sqM); Non-African American GFR(CKD) >90 (>60 ml/min/1.73 sqM)
[2024-03-22] MEDS: DULoxetine HCL 60 MG CAPSULE.DR PO SCH (08:21)
--- NOTE | 2024-03-22 09:31 | P.CONS ---
History of Present Illness - Reason for Consult Consult date: 03/21/24 UTI Requesting physician: Bishop Mejia - Chief Complaint Abdominal pain x 3 days - History of Present Illness Patient is a 63-year-old female with a past medical history significant for chronic back pain status post back surgery resulting in paraplegic, depression chronic lower extremity wounds and nonalcoholic cirrhosis lung cancer also had splenectomy presenting to the hospital with abdominal pain that pain has been getting worse for the last 3 days patient complaining of pain mostly lower abdominal area mostly dull aching to quality moderate intensity without any radiation did have some nausea but no vomiting denies any diarrhea that has a positive patient also complaining of some urinary burning and frequency on presentation to the hospital the patient was afebrile no fever have been recorded subsequently patient was not tachycardic hypotensive or hypoxic patient did have a white count of 19.3 with a left shift creatinine 0.41 electrolytes normal except for low potassium of 2.5 repeat is 3.2 liver enzymes are normal urine has been significantly positive influenza RSV COVID testing are negative patient did have wound to the left ankle area with the patient has 4 couple of months now she is not very clear about any local treatment provided to wait did have some mild dull aching pain but denies any worsening drainage patient did have a ankle x-ray no evidence for acute fracture abdominal pelvis CT distended urinary bladder with mild bilateral hydronephrosis correlate for last white no stone and nonobstructive bilateral renal calculi and moderate amount of stool in the colon patient was started on ceftriaxone infectious he was consulted for further management of antibiotic therapy Review of Systems Positive point and negatives has been mentioned in the HPI, complete review of systems was performed and all other systems are negative Past Medical History Past Medical History: Cancer, Hearing Disorder / Deafness Additional Past Medical History / Comment(s): back pain; "several tia's-Last TIA 1 1/2 YEARS AGO, pluerisy, migraines, past falls, "was told at [facility] she had non-alcoholic cirrhosis". lung cancer History of Any Multi-Drug Resistant Organisms: None Reported Past Surgical History: Back Surgery, Breast Surgery, Hysterectomy Additional Past Surgical History / Comment(s): back sx, neck sx. spleenectomy- d/t injury; benign R Breast lumpectomy, sinus sx Past Anesthesia/Blood Transfusion Reactions: No Reported Reaction Additional Past Anesthesia/Blood Transfusion Reaction / Comm: Pt hs clausterphobia Past Psychological History: Depression Smoking Status: Current some day smoker Past Alcohol Use History: None Reported Past Drug Use History: None Reported - Past Family History Mother Family Medical History: Cancer Additional Family Medical History / Comment(s): Father History Unknown: Yes Family Medical History: No Reported History Additional Family Medical History / Comment(s): Father was murdered Medications and Allergies Home Medications Medication Instructions Recorded Confirmed Type Atorvastatin [Lipitor] 80 mg PO HS 03/21/24 03/21/24 History DULoxetine HCL [Cymbalta] 60 mg PO DAILY 03/21/24 03/21/24 History Fluticasone Propion/Salmeterol 1 puff INHALATION RT-BID 03/21/24 03/21/24 History [Fluticasone-Salmeterol 250-50] Gabapentin [Neurontin] 300 mg PO TID 03/21/24 03/21/24 History Ipratropium-Albuterol Nebulize 3 ml INHALATION RT-TID PRN 03/21/24 03/21/24 History [Duoneb 0.5 mg-3 mg/3 ml Soln] Metoprolol Tartrate [Lopressor] 25 mg PO BID 03/21/24 03/21/24 History Ondansetron [Zofran] 4 mg PO Q6H PRN 03/21/24 03/21/24 History oxyCODONE HCL [Roxicodone] 5 mg PO Q6HR PRN 03/21/24 03/21/24 History Allergies Allergy/AdvReac Type Severity Reaction Status Date / Time gentamicin Allergy Anaphylaxis Verified 03/21/24 09:54 Physical Exam Vitals: Vital Signs Temp Pulse Resp BP Pulse Ox 03/21/24 10:19 94 90/60 95 03/21/24 08:14 79 18 92/60 92 L 03/21/24 06:38 97.9 F 91 19 118/75 93 L 03/21/24 01:38 84 17 103/62 94 L 03/20/24 23:01 79 18 106/71 94 L 03/20/24 21:08 97.6 F 73 18 114/86 95 03/20/24 19:53 97.9 F 85 20 105/69 94 L 03/20/24 16:55 97.9 F 86 19 115/64 98 Intake and Output 03/20/24 03/21/24 03/21/24 22:59 06:59 14:59 Output Total 1100 Balance -1100 Output: Urine 1100 Uretheral (Llanes) 1100 Other: Weight 90.718 kg GENERAL DESCRIPTION: Elderly female lying in bed, no distress. No tachypnea or accessory muscle of respiration use. HEENT: Shows Pallor , no scleral icterus. Oral mucous membrane is dry. NECK: Trachea central, no thyromegaly. LUNGS: Unlabored breathing. Clear to auscultation anteriorly. No wheeze or crackle. HEART: S1, S2, regular rate and rhythm. No loud murmur ABDOMEN: Soft, no tenderness , guarding or rigidity, no organomegaly EXTREMITIES: Left ankle did have a stage II pressure ulcer minimal slough tissue no significant surrounding redness SKIN: No rash, no masses palpable. NEUROLOGICAL: The patient is awake, alert, oriented x3, mood and affect normal. Results CBC & Chem 7: 03/21/24 10:54 03/22/24 03:06 Labs: Abnormal Lab Results - Last 24 Hours (Table) 03/20/24 03/20/24 03/20/24 Range/Units 17:33 17:33 17:33 WBC 19.3 H (3.8-10.6) k/uL RBC 5.54 H (3.80-5.40) m/uL MCV 77.9 L (80.0-100.0) fL MCH 24.9 L (25.0-35.0) pg RDW 18.0 H (11.5-15.5) % Plt Count 751 H (150-450) k/uL Neutrophils # 14.5 H (1.3-7.7) k/uL Potassium 2.5 L* (3.5-5.1) mmol/L Creatinine 0.41 L (0.52-1.04) mg/dL Glucose 121 H (74-99) mg/dL Plasma Lactic Acid Paresh 2.1 H* (0.7-2.0) mmol/L Albumin 3.0 L (3.5-5.0) g/dL Urine Appearance (Clear) Urine Protein (Negative) Urine Blood (Negative) Ur Leukocyte Esterase (Negative) Urine RBC (0-5) /hpf Urine WBC (0-5) /hpf Urine WBC Clumps (None) /hpf Urine Mucus (None) /hpf 03/20/24 Range/Units 20:52 WBC (3.8-10.6) k/uL RBC (3.80-5.40) m/uL MCV (80.0-100.0) fL MCH (25.0-35.0) pg RDW (11.5-15.5) % Plt Count (150-450) k/uL Neutrophils # (1.3-7.7) k/uL Potassium (3.5-5.1) mmol/L Creatinine (0.52-1.04) mg/dL Glucose (74-99) mg/dL Plasma Lactic Acid Paresh (0.7-2.0) mmol/L Albumin (3.5-5.0) g/dL Urine Appearance Turbid H (Clear) Urine Protein 1+ H (Negative) Urine Blood Moderate H (Negative) Ur Leukocyte Esterase Large H (Negative) Urine RBC 176 H (0-5) /hpf Urine WBC >182 H (0-5) /hpf Urine WBC Clumps Occasional H (None) /hpf Urine Mucus Many H (None) /hpf Microbiology - Last 24 Hours (Table) 03/20/24 23:01 Gram Stain - Preliminary Foot - Left 03/20/24 17:14 Gram Stain - Preliminary Ankle - Left Assessment and Plan (1) Wound of left ankle Current Visit: Yes Status: Acute Code(s): S91.002A - UNSPECIFIED OPEN WOUND, LEFT ANKLE, INITIAL ENCOUNTER SNOMED Code(s): 208898957 (2) Leukocytosis Current Visit: Yes Status: Acute Code(s): D72.829 - ELEVATED WHITE BLOOD CELL COUNT, UNSPECIFIED SNOMED Code(s): 276390396 (3) UTI (urinary tract infection) Current Visit: Yes Status: Acute Code(s): N39.0 - URINARY TRACT INFECTION, SITE NOT SPECIFIED SNOMED Code(s): 57665033 Plan: 1patient presented to hospital with abdominal pain and this patient has been diagnosed with bladder distention with mild hydronephrosis possible incomplete emptying of the bladder did have a positive UA with burning urine concerning for symptomatic UTI likely from to the gram-negative pathogen also with evidence of constipation General Surgery has been consulted 2-patient did have a pressure ulcer to the left ankle area but no significant cellulitis 3-Rocephin 2 g daily while waiting for the culture to finalize We will follow on clinical condition and cultures to further adjust medication if needed Thank you for this consultation we will follow the patient along with you Dictation was produced using [employer] dictation software. please excuse any grammatical, word or spelling errors. Time with Patient: Greater than 30
--- NOTE | 2024-03-22 12:34 | P.PN ---
Subjective Progress Note Date: 03/22/24 SURGICAL PROGRESS NOTE CHIEF COMPLAINT: Abdominal pain HISTORY OF PRESENT ILLNESS: Surgical service following regards to patient's constipation and abdominal pain. Patient did have a bowel movement after the enema. Patient lying in bed comfortably. No new complaints. Afebrile. No new labs for today. Positive blood culture PHYSICAL EXAM: VITAL SIGNS: Reviewed. GENERAL: Well-developed in no acute distress. HEENT: No sclera icterus. Extraocular movements grossly intact. Moist buccal mucosa. Head is atraumatic, normocephalic. ABDOMEN: Soft. Nondistended. Nontender. NEUROLOGIC: Alert and oriented. Cranial nerves II through XII grossly intact. ASSESSMENT: 1. Constipation. Improving. Patient having bowel movements. 2. Urinary retention status post [place] catheter placement 3. Hypokalemia receiving supplement 4. UTI and left ankle wound PLAN: -Check potassium level now and to continue to correct as needed -Patient scheduled for colonoscopy on Monday with Dr. Clifford -Continue lactulose Physician [place] note has been reviewed by physician. Signing provider agrees with the documented findings, assessment, and plan of care. Objective - Vital Signs Vital signs: Vital Signs Temp 98.4 F 03/22/24 07:15 Pulse 70 03/22/24 07:15 Resp 16 03/22/24 07:15 BP 102/64 03/22/24 07:15 Pulse Ox 95 03/22/24 07:15 FiO2 Intake & Output 03/21/24 03/22/24 03/22/24 18:59 06:59 18:59 Weight 90.718 kg 90.718 kg Other: Voiding Method Indwelling Catheter Indwelling Catheter # Bowel Movements 1 - Labs CBC & Chem 7: 03/21/24 10:54 03/22/24 03:06 Labs: Abnormal Lab Results - Last 24 Hours (Table) 03/21/24 03/22/24 Range/Units 10:54 03:06 Neutrophils # 15.0 H (1.3-7.7) k/uL Monocytes # 1.5 H (0-1.0) k/uL Creatinine 0.49 L (0.52-1.04) mg/dL Microbiology - Last 24 Hours (Table) 03/20/24 17:14 Gram Stain - Preliminary Ankle - Left Wound Culture - Preliminary 03/20/24 17:41 Blood Culture Gram Stain - Preliminary Blood Blood Culture - Preliminary Molecular ID 03/20/24 23:01 Gram Stain - Preliminary Foot - Left
[2024-03-22 13:30] LABS: African American GFR (CKD) >90 (>60 ml/min/1.73 sqM); Anion Gap 5 mmol/L; Blood Urea Nitrogen 5 mg/dL (7-17); Carbon Dioxide 24 mmol/L (22-30); Chloride 105 mmol/L (98-107); Glucose 99 mg/dL (74-99); Non-African American GFR(CKD) >90 (>60 ml/min/1.73 sqM); Sodium 134 mmol/L (137-145)
[2024-03-22 13:33] LABS: Potassium 2.9 mmol/L (3.5-5.1)
[2024-03-22] MEDS: COLLAGENASE 250 UNIT/GM OINTMENT 30 GM TUBE TOPICAL SCH (14:38)
[2024-03-22] MEDS ORDERED: Potassium Replacement Protocol 1 EACH MISC MISCELLANE PRN (14:39)
[2024-03-22] MEDS: POTASSIUM CHLORIDE ER 20 MEQ TAB.ER PO SCH ×2 (14:53→20:48)
--- NOTE | 2024-03-22 15:36 | P.PN ---
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 On today's evaluation that is 03/22/2024, the patient continues to be afebrile, the patient is on 2 L nasal oxygen and breathing comfortably, the Pt denies having any chest pain or cough, the patient denies having any abdominal pain no vomiting did have a bowel movement reported by the nursing staff patient complaining of mostly pain to the lower back with the patient did have pressure ulcer pressure ulcer to the left heel area. Patient did not have a CBC done today creatinine 0.41 blood cultures came back positive with gram-positive cocci urine culture were done Objective - Vital Signs Vital signs: Vital Signs Temp 98.4 F 03/22/24 07:15 Pulse 70 03/22/24 07:15 Resp 16 03/22/24 07:15 BP 102/64 03/22/24 07:15 Pulse Ox 95 03/22/24 07:15 FiO2 Intake & Output 03/21/24 03/22/24 03/22/24 18:59 06:59 18:59 Weight 90.718 kg 90.718 kg Other: Voiding Method Indwelling Catheter Indwelling Catheter # Bowel Movements 1 - Exam GENERAL DESCRIPTION: An elderly female lying in bed in no distress RESPIRATORY SYSTEM: Unlabored breathing , decreased breath sounds at bases HEART: S1 S2 regular rate and rhythm , ABDOMEN: Soft , no tenderness EXTREMITIES: Patient did have a stage III pressure ulcer to the left heel area with some slough tissue Stage II pressure ulcer to the back with some skin sloughing - Labs CBC & Chem 7: 03/21/24 10:54 03/22/24 13:07 Labs: Abnormal Lab Results - Last 24 Hours (Table) 03/21/24 03/22/24 03/22/24 Range/Units 10:54 03:06 13:07 Neutrophils # 15.0 H (1.3-7.7) k/uL Monocytes # 1.5 H (0-1.0) k/uL Sodium 134 L (137-145) mmol/L Potassium 2.9 L (3.5-5.1) mmol/L BUN 5 L (7-17) mg/dL Creatinine 0.49 L 0.41 L (0.52-1.04) mg/dL Calcium 8.0 L (8.4-10.2) mg/dL Microbiology - Last 24 Hours (Table) 03/20/24 17:14 Gram Stain - Preliminary Ankle - Left Wound Culture - Preliminary 03/20/24 17:41 Blood Culture Gram Stain - Preliminary Blood Blood Culture - Preliminary Molecular ID 03/20/24 23:01 Gram Stain - Preliminary Foot - Left Assessment and Plan (1) Leukocytosis Current Visit: Yes Status: Acute Code(s): D72.829 - ELEVATED WHITE BLOOD CELL COUNT, UNSPECIFIED SNOMED Code(s): 603162874 (2) UTI (urinary tract infection) Current Visit: Yes Status: Acute Code(s): N39.0 - URINARY TRACT INFECTION, SITE NOT SPECIFIED SNOMED Code(s): 24683523 (3) Decubitus ulcer of left heel, stage 3 Current Visit: Yes Status: Acute Code(s): L89.623 - PRESSURE ULCER OF LEFT HEEL, STAGE 3 SNOMED Code(s): 71489521397287 (4) Stage II pressure ulcer of back Current Visit: Yes Status: Acute Code(s): L89.102 - PRESSURE ULCER OF UNSPECIFIED PART OF BACK, STAGE 2 SNOMED Code(s): 13819899036507124 (5) Positive blood culture Current Visit: Yes Status: Acute Code(s): R78.81 - BACTEREMIA SNOMED Code(s): 906304338 Plan: 1patient presented to hospital with abdominal pain and this patient has been diagnosed with bladder distention with mild hydronephrosis possible incomplete emptying of the bladder did have a positive UA with burning urine concerning for symptomatic UTI likely from to the gram-negative pathogen also with evidence of constipation General Surgery following the patient 2-patient did have a pressure ulcer to the left heel area with some slough tissue culture obtained results will be followed 3blood culture positive with staph epi possible skin contamination versus related to the heel ulcer but culture will be repeated document clearance 4local wound care to the left heel with Medihoney followed by moist dressing and keep the area of pressure and local wound care to the back wound with dry Aquacel dressing change q. 48-hour 5unfortunately no urine culture done which has been requested patient is covered with Rocephin and vancomycin to continue while waiting for the workup to be completed Dictation was produced using [employer] dictation software. please excuse any grammatical, word or spelling errors. Time with Patient: Less than 30
[2024-03-23] MEDS: POTASSIUM CHLORIDE ER 20 MEQ TAB.ER PO SCH (01:39)
[2024-03-23 09:38] LABS: Anisocytosis Slight; Basophils # (A) 0.1 k/uL (0-0.2); Basophils % (A) 0 %; Eosinophils # (A) 0.7 k/uL (0-0.7); Eosinophils % (A) 4 %; HCT 38.8 % (34.0-46.0); HGB 12.4 gm/dL (11.4-16.0); Hypochromasia Marked; Lymphocytes # (A) 2.4 k/uL (1.0-4.8); Lymphocytes % (A) 15 %; MCH 25.8 pg (25.0-35.0); MCV 80.8 fL (80.0-100.0); Mean Platelet Volume 9.4; Microcytosis Slight; Monocytes # (A) 1.3 k/uL (0-1.0); Monocytes % (A) 8 %; Neutrophils # (A) 11.1 k/uL (1.3-7.7); Neutrophils % (A) 70 %; Platelet Count 434 k/uL (150-450); RDW 18.1 % (11.5-15.5); WBC 15.9 k/uL (3.8-10.6)
[2024-03-23 09:54] LABS: Crenated RBC Present; Poikilocytosis (M) Present; RBC Fragments Present
[2024-03-23 10:04] LABS: African American GFR (CKD) >90 (>60 ml/min/1.73 sqM); Anion Gap 8 mmol/L; Blood Urea Nitrogen 11 mg/dL (7-17); C Reactive Protein 6.8 mg/dL (<1.0); Carbon Dioxide 19 mmol/L (22-30); Chloride 112 mmol/L (98-107); Glucose 94 mg/dL (74-99); Non-African American GFR(CKD) >90 (>60 ml/min/1.73 sqM); Sodium 139 mmol/L (137-145)
[2024-03-23 10:11] LABS: Potassium 5.3 mmol/L (3.5-5.1)
[2024-03-23] MEDS: VANCOMYCIN TROUGH DUE 1 EACH MISC MISCELLANE ONE (15:35)
--- NOTE | 2024-03-23 15:35 | P.PN ---
Subjective Progress Note Date: 03/23/24 CHIEF COMPLAINT: Constipation HISTORY OF PRESENT ILLNESS: The patient is a 63-year-old female being seen for constipation. Patient still reports generalized discomfort including mild abdominal distention. Last bowel movement was yesterday. She reports she feels no differently than yesterday. ROS: No reports of nausea and vomiting. No fevers or chills. No new chest pain. No productive sputum. Has urinary tract infection present on admission. Morbid obesity, BMI 37.8 PHYSICAL EXAM: VITAL SIGNS: Reviewed CONSTITUTIONAL: Well developed and in no acute distress. EYES: Conjuctivae without sclera icterus. Extraocular movements grossly intact. Wears glasses. HEAD, EARS, NOSE, THROAT: Moist buccal mucosa. Head is atraumatic, normocephalic. Hears conversational speech. No nasal drainage. RESPIRATORY: Non-labored respirations and equal bilateral excursions. CARDIOVASCULAR: Palpable 2+ radial pulses. ABDOMEN: No diffuse peritonitis. Generalized tenderness. MUSCULOSKELETAL: Has bilateral PRAFO boots. SKIN: Good skin turgor. Well perfused. NEUROLOGIC: Cranial nerves II through XII grossly intact. No focal or lateralizing signs. PSYCH: Appropriate affect. Alert and oriented to person, place and time. CLINICAL LABS: Reviewed. WBC trending downward from 19,000-15,000. Potassium elevated 5.3. ASSESSMENT: 1. Constipation. 2. Urinary tract infection, present on admission 3. Leukocytosis 4. Morbid obesity excess calories, BMI 37.8 5. Hyperkalemia PLAN: 1. Patient still reports abdominal soreness send may have difficulty doing her bowel prep. 2. Repeat CBC and CMP. Objective - Vital Signs Vital signs: Vital Signs Temp 97.9 F 03/23/24 13:00 Pulse 78 03/23/24 13:00 Resp 19 03/23/24 13:00 BP 90/55 03/23/24 13:00 Pulse Ox 92 L 03/23/24 13:00 FiO2 Intake & Output 03/22/24 03/23/24 03/23/24 18:59 06:59 18:59 Intake Total 660 Output Total 700 1050 Balance -700 -390 Intake: Oral 660 Output: Urine 700 1050 Uretheral ([place]) 1050 Other: Voiding Method Indwelling Catheter Indwelling Catheter Indwelling Catheter # Bowel Movements 2 - Labs CBC & Chem 7: 03/23/24 08:51 03/23/24 08:51 Labs: Abnormal Lab Results - Last 24 Hours (Table) 03/22/24 03/23/24 03/23/24 Range/Units 19:59 00:45 08:51 WBC 15.9 H (3.8-10.6) k/uL RDW 18.1 H (11.5-15.5) % Neutrophils # 11.1 H (1.3-7.7) k/uL Monocytes # 1.3 H (0-1.0) k/uL Potassium 3.3 L 3.0 L (3.5-5.1) mmol/L Chloride (98-107) mmol/L Carbon Dioxide (22-30) mmol/L Creatinine (0.52-1.04) mg/dL C-Reactive Protein (<1.0) mg/dL 03/23/24 Range/Units 08:51 WBC (3.8-10.6) k/uL RDW (11.5-15.5) % Neutrophils # (1.3-7.7) k/uL Monocytes # (0-1.0) k/uL Potassium 5.3 H (3.5-5.1) mmol/L Chloride 112 H (98-107) mmol/L Carbon Dioxide 19 L (22-30) mmol/L Creatinine 0.42 L (0.52-1.04) mg/dL C-Reactive Protein 6.8 H (<1.0) mg/dL Microbiology - Last 24 Hours (Table) 03/20/24 23:01 Anaerobic Culture - Final Heel - Left 03/20/24 17:41 Blood Culture Gram Stain - Preliminary Blood Blood Culture - Preliminary Staphylococcus epidermidis Molecular ID 03/20/24 17:14 Gram Stain - Final Ankle - Left Wound Culture - Final 03/20/24 23:01 Gram Stain - Final Foot - Left Wound Culture - Final
--- NOTE | 2024-03-23 19:06 | P.PN ---
Subjective Progress Note Date: 03/22/24 63-year-old lady with past medical history significant for paraplegia, back surgery, chronic lower extremity wounds, splenectomy presents the ER for abdominal pain. Patient stated she was all right 3 days back when she started having abdominal pain. Patient abdominal pain was generalized, cramping in na ture, no radiating or relieving factor associated abdominal pain. Patient was complaining of nausea but no vomiting. Patient last bowel movement was 3 days ago. There was no complaint of fever or chills. There was no complaint of chest pain or shortness of breath. Patient also had pain in her left ankle with swelling, states it was secondary to pressure injury from laying in the bed. Denies any trauma. Patient is bedridden. Because of this abdominal pain, patient brought to the ER Initial lab work done in the ER showed WBC 19.3, hemoglobin 13.8, platelet count 751, sodium 130, potassium 2.5, lactate 2.1, UA positive for leukocyte Estrace, urine WBC 182, COVID-19 not detected, influenza A and influenza B negative, RSV is negative CT abdomen pelvis done showed distended urinary bladder with mild bilateral hydronephrosis no obstructing calculus visualized EKG done in the ER showed heart rate of 86 , no ST segment elevation or depression seen, no T-wave inversions seen. X-ray ankle done showed no evidence of acute fracture Patient admitted to internal medicine service Objective - Vital Signs Vital signs: Vital Signs Temp 98.4 F 03/22/24 07:15 Pulse 70 03/22/24 07:15 Resp 16 03/22/24 07:15 BP 102/64 03/22/24 07:15 Pulse Ox 95 03/22/24 07:15 FiO2 Intake & Output 03/21/24 03/22/24 03/22/24 18:59 06:59 18:59 Weight 90.718 kg 90.718 kg Other: Voiding Method Indwelling Catheter Indwelling Catheter # Bowel Movements 1 - Exam GENERAL: The patient is alert and oriented x3, not in any acute distress. Well developed, well nourished. HEENT: Pupils are round and equally reacting to light. EOMI. No scleral icterus. No conjunctival pallor. Normocephalic, atraumatic. No pharyngeal erythema. No thyromegaly. CARDIOVASCULAR: S1 and S2 present. No murmurs, rubs, or gallops. PULMONARY: Chest is clear to auscultation, no wheezing or crackles. ABDOMEN: Soft, nontender, nondistended, normoactive bowel sounds. No palpable o rganomegaly. MUSCULOSKELETAL: No joint swelling or deformity. EXTREMITIES: No cyanosis, clubbing, or pedal edema. NEUROLOGICAL: Gross neurological examination did not reveal any focal deficits. SKIN: No rashes. - Labs CBC & Chem 7: 03/23/24 08:51 03/23/24 08:51 Labs: Abnormal Lab Results - Last 24 Hours (Table) 03/21/24 03/22/24 Range/Units 10:54 03:06 Neutrophils # 15.0 H (1.3-7.7) k/uL Monocytes # 1.5 H (0-1.0) k/uL Creatinine 0.49 L (0.52-1.04) mg/dL Microbiology - Last 24 Hours (Table) 03/20/24 17:14 Gram Stain - Preliminary Ankle - Left Wound Culture - Preliminary 03/20/24 17:41 Blood Culture Gram Stain - Preliminary Blood Blood Culture - Preliminary Molecular ID 03/20/24 23:01 Gram Stain - Preliminary Foot - Left Assessment and Plan Assessment: Sepsis UTI Hypokalemia Lactic acidosis Left foot cellulitis Urine retention Bilateral hydronephrosis Paraplegia History of back surgery Monitor vital signs Monitor CBC Monitor CMP Continue telemetry monitoring Ordered blood cultures Ordered urine cultures ordered IV fluids Ordered IV Rocephin and vancomycin Ordered antiemetics Consult ID Consult surgery Labs and medication were reviewed.. Continue same treatment. Continue with symptomatic treatment. Resume home medication. Monitor labs and vitals. DVT and GI prophylaxis. Further recommendations as per clinical course of the patient
--- NOTE | 2024-03-23 19:14 | P.PN ---
Subjective Progress Note Date: 03/23/24 63-year-old lady with past medical history significant for paraplegia, back surgery, chronic lower extremity wounds, splenectomy presents the ER for abdominal pain. Patient stated she was all right 3 days back when she started having abdominal pain. Patient abdominal pain was generalized, cramping in na ture, no radiating or relieving factor associated abdominal pain. Patient was complaining of nausea but no vomiting. Patient last bowel movement was 3 days ago. There was no complaint of fever or chills. There was no complaint of chest pain or shortness of breath. Patient also had pain in her left ankle with swelling, states it was secondary to pressure injury from laying in the bed. Denies any trauma. Patient is bedridden. Because of this abdominal pain, patient brought to the ER Initial lab work done in the ER showed WBC 19.3, hemoglobin 13.8, platelet count 751, sodium 130, potassium 2.5, lactate 2.1, UA positive for leukocyte Estrace, urine WBC 182, COVID-19 not detected, influenza A and influenza B negative, RSV is negative CT abdomen pelvis done showed distended urinary bladder with mild bilateral hydronephrosis no obstructing calculus visualized EKG done in the ER showed heart rate of 86 , no ST segment elevation or depression seen, no T-wave inversions seen. X-ray ankle done showed no evidence of acute fracture Patient admitted to internal medicine service 24-hour interval change 03/23/2024 Patient is seen and evaluated in room at bedside; potassium is elevated at 5.6; currently on potassium replacement protocol Vital signs are reviewed and remained stable Lab review shows WBC 15.9, hemoglobin of 12.4 and platelet count of 434, sodium 139, potassium 5.3, BUNs/creatinine of 11/0.42 patient presented to hospital with abdominal pain and this patient has been diagnosed with bladder distention with mild hydronephrosis possible incomplete emptying of the bladder did have a positive UA with burning urine concerning for symptomatic UTI likely from to the gram-negative pathogen also with evidence of constipation General Surgery following the patient -patient did have a pressure ulcer to the left heel area with some slough tissue culture obtained results will be followed blood culture positive with staph epi possible skin contamination versus related to the heel ulcer but culture will be repeated document clearance local wound care to the left heel with Medihoney followed by moist dressing and keep the area of pressure and local wound care to the back wound with dry Aquacel dressing change q. 48-hour -Patient is currently on IV Rocephin and vancomycin to continue while waiting for the workup to be completed Objective - Vital Signs Vital signs: Vital Signs Temp 97.7 F 03/23/24 07:02 Pulse 72 03/23/24 08:26 Resp 19 03/23/24 08:26 BP 92/62 03/23/24 07:02 Pulse Ox 93 L 03/23/24 07:02 FiO2 Intake & Output 03/22/24 03/23/24 03/23/24 18:59 06:59 18:59 Intake Total 660 Output Total 700 1050 Balance -700 -390 Intake: Oral 660 Output: Urine 700 1050 Uretheral ([place]) 1050 Other: Voiding Method Indwelling Catheter Indwelling Catheter Indwelling Catheter # Bowel Movements 2 - Exam GENERAL: The patient is alert and oriented x3, not in any acute distress. Well developed, well nourished. HEENT: Pupils are round and equally reacting to light. EOMI. No scleral icterus. No conjunctival pallor. Normocephalic, atraumatic. No pharyngeal erythema. No thyromegaly. CARDIOVASCULAR: S1 and S2 present. No murmurs, rubs, or gallops. PULMONARY: Chest is clear to auscultation, no wheezing or crackles. ABDOMEN: Soft, nontender, nondistended, normoactive bowel sounds. No palpable organomegaly. MUSCULOSKELETAL: No joint swelling or deformity. EXTREMITIES: No cyanosis, clubbing, or pedal edema. NEUROLOGICAL: Gross neurological examination did not reveal any focal deficits. SKIN: No rashes. - Labs CBC & Chem 7: 03/23/24 08:51 03/23/24 08:51 Labs: Abnormal Lab Results - Last 24 Hours (Table) 03/22/24 03/22/24 03/23/24 Range/Units 13:07 19:59 00:45 WBC (3.8-10.6) k/uL RDW (11.5-15.5) % Neutrophils # (1.3-7.7) k/uL Monocytes # (0-1.0) k/uL Sodium 134 L (137-145) mmol/L Potassium 2.9 L 3.3 L 3.0 L (3.5-5.1) mmol/L Chloride (98-107) mmol/L Carbon Dioxide (22-30) mmol/L BUN 5 L (7-17) mg/dL Creatinine 0.41 L (0.52-1.04) mg/dL Calcium 8.0 L (8.4-10.2) mg/dL C-Reactive Protein (<1.0) mg/dL 03/23/24 03/23/24 Range/Units 08:51 08:51 WBC 15.9 H (3.8-10.6) k/uL RDW 18.1 H (11.5-15.5) % Neutrophils # 11.1 H (1.3-7.7) k/uL Monocytes # 1.3 H (0-1.0) k/uL Sodium (137-145) mmol/L Potassium 5.3 H (3.5-5.1) mmol/L Chloride 112 H (98-107) mmol/L Carbon Dioxide 19 L (22-30) mmol/L BUN (7-17) mg/dL Creatinine 0.42 L (0.52-1.04) mg/dL Calcium (8.4-10.2) mg/dL C-Reactive Protein 6.8 H (<1.0) mg/dL Microbiology - Last 24 Hours (Table) 03/20/24 23:01 Anaerobic Culture - Final Heel - Left 03/20/24 17:41 Blood Culture Gram Stain - Preliminary Blood Blood Culture - Preliminary Staphylococcus epidermidis Molecular ID 03/20/24 17:14 Gram Stain - Final Ankle - Left Wound Culture - Final 03/20/24 23:01 Gram Stain - Final Foot - Left Wound Culture - Final Assessment and Plan Assessment: Sepsis UTI Hypokalemia Lactic acidosis Left foot cellulitis Urine retention Bilateral hydronephrosis Paraplegia History of back surgery Monitor vital signs Monitor CBC Monitor CMP Continue telemetry monitoring Ordered blood cultures Ordered urine cultures ordered IV fluids Ordered IV Rocephin and vancomycin Ordered antiemetics Consult ID Consult surgery Labs and medication were reviewed.. Continue same treatment. Continue with symptomatic treatment. Resume home medication. Monitor labs and vitals. DVT and GI prophylaxis. Further recommendations as per clinical course of the patient
--- NOTE | 2024-03-23 22:50 | P.PN ---
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 On today's evaluation that is 03/23/2024, patient did not have any fever and denies any chills, patient is breathing comfortably on 2 L nasal oxygen, patient with no chest pain or cough patient did not have any abdominal pain nausea vomiting or any loose stools. Patient white count is down to 15.9, creatinine 0.42 wound cultures came back negative repeat blood cultures are pending Objective - Vital Signs Vital signs: Vital Signs Temp 97.7 F 03/23/24 07:02 Pulse 72 03/23/24 08:26 Resp 19 03/23/24 08:26 BP 92/62 03/23/24 07:02 Pulse Ox 93 L 03/23/24 07:02 FiO2 Intake & Output 03/22/24 03/23/24 03/23/24 18:59 06:59 18:59 Intake Total 660 Output Total 700 1050 Balance -700 -390 Intake: Oral 660 Output: Urine 700 1050 Uretheral ([place]) 1050 Other: Voiding Method Indwelling Catheter Indwelling Catheter Indwelling Catheter # Bowel Movements 2 - Exam GENERAL DESCRIPTION: An elderly female lying in bed in no distress RESPIRATORY SYSTEM: Unlabored breathing , decreased breath sounds at bases HEART: S1 S2 regular rate and rhythm , ABDOMEN: Soft , no tenderness EXTREMITIES: Patient did have a stage III pressure ulcer to the left heel area with some slough tissue Stage II pressure ulcer to the back with some skin sloughing - Labs CBC & Chem 7: 03/23/24 08:51 03/23/24 08:51 Labs: Abnormal Lab Results - Last 24 Hours (Table) 03/22/24 03/22/24 03/23/24 Range/Units 13:07 19:59 00:45 WBC (3.8-10.6) k/uL RDW (11.5-15.5) % Neutrophils # (1.3-7.7) k/uL Monocytes # (0-1.0) k/uL Sodium 134 L (137-145) mmol/L Potassium 2.9 L 3.3 L 3.0 L (3.5-5.1) mmol/L Chloride (98-107) mmol/L Carbon Dioxide (22-30) mmol/L BUN 5 L (7-17) mg/dL Creatinine 0.41 L (0.52-1.04) mg/dL Calcium 8.0 L (8.4-10.2) mg/dL C-Reactive Protein (<1.0) mg/dL 03/23/24 03/23/24 Range/Units 08:51 08:51 WBC 15.9 H (3.8-10.6) k/uL RDW 18.1 H (11.5-15.5) % Neutrophils # 11.1 H (1.3-7.7) k/uL Monocytes # 1.3 H (0-1.0) k/uL Sodium (137-145) mmol/L Potassium 5.3 H (3.5-5.1) mmol/L Chloride 112 H (98-107) mmol/L Carbon Dioxide 19 L (22-30) mmol/L BUN (7-17) mg/dL Creatinine 0.42 L (0.52-1.04) mg/dL Calcium (8.4-10.2) mg/dL C-Reactive Protein 6.8 H (<1.0) mg/dL Microbiology - Last 24 Hours (Table) 03/20/24 17:41 Blood Culture Gram Stain - Preliminary Blood Blood Culture - Preliminary Staphylococcus epidermidis Molecular ID 03/20/24 17:14 Gram Stain - Final Ankle - Left Wound Culture - Final 03/20/24 23:01 Gram Stain - Final Foot - Left Wound Culture - Final Assessment and Plan (1) Leukocytosis Current Visit: Yes Status: Acute Code(s): D72.829 - ELEVATED WHITE BLOOD CELL COUNT, UNSPECIFIED SNOMED Code(s): 680222936 (2) UTI (urinary tract infection) Current Visit: Yes Status: Acute Code(s): N39.0 - URINARY TRACT INFECTION, SITE NOT SPECIFIED SNOMED Code(s): 52905131 (3) Decubitus ulcer of left heel, stage 3 Current Visit: Yes Status: Acute Code(s): L89.623 - PRESSURE ULCER OF LEFT HEEL, STAGE 3 SNOMED Code(s): 87209140069246 (4) Stage II pressure ulcer of back Current Visit: Yes Status: Acute Code(s): L89.102 - PRESSURE ULCER OF UNSPECIFIED PART OF BACK, STAGE 2 SNOMED Code(s): 34000900533438655 (5) Positive blood culture Current Visit: Yes Status: Acute Code(s): R78.81 - BACTEREMIA SNOMED Code(s): 183163266 Plan: 1patient presented to hospital with abdominal pain and this patient has been diagnosed with bladder distention with mild hydronephrosis possible incomplete emptying of the bladder did have a positive UA with burning urine concerning for symptomatic UTI likely from to the gram-negative pathogen also with evidence of constipation General Surgery following the patient 2-patient did have a pressure ulcer to the left heel area with some slough tissue culture obtained which are so far negative 3blood culture positive with staph epi possible skin contamination versus related to the heel ulcer, blood culture has been repeated 4local wound care to the left heel with Santyl followed by moist dressing and keep the area of pressure and local wound care to the back wound with dry Aquacel dressing change q. 48-hour 5patient white count is trending down continue with Rocephin discontinue vancomycin Dictation was produced using [employer] dictation software. please excuse any grammatical, word or spelling errors.
[2024-03-24] MEDS ORDERED: VANCOMYCIN 1,500 MG in SODIUM CHLORIDE 0.9% 500 ML 500 ML IVPB SCH
[2024-03-24 06:29] LABS: African American GFR (CKD) >90 (>60 ml/min/1.73 sqM); Anion Gap 5 mmol/L; Blood Urea Nitrogen 6 mg/dL (7-17); Carbon Dioxide 24 mmol/L (22-30); Chloride 107 mmol/L (98-107); Glucose 96 mg/dL (74-99); Non-African American GFR(CKD) >90 (>60 ml/min/1.73 sqM); Potassium 3.2 mmol/L (3.5-5.1); Sodium 136 mmol/L (137-145)
[2024-03-24 11:28] LABS: HGB 10.9 g/dL (12.0-15.0); MCH 24.6 pg (27.0-32.0); MCHC 30.3 g/dL (32.0-37.0); MCV 81.3 FL (80.0-97.0); Mean Platelet Volume 9.6 FL (9.5-12.2); NRBC Per 100 WBC 0 X 10*3/uL (0.00-0.01); Platelet Count 614 X 10*3/uL (140-440); RBC 4.43 X 10*6/uL (4.10-5.20); RDW 20.5 % (11.5-14.5); WBC 11.72 X 10*3/uL (4.50-10.00)
[2024-03-24 12:27] LABS: Basophils # (A) 0.05 X 10*3/uL (0.00-0.10); Basophils % (A) 0.4 %; Eosinophils # (A) 0.72 X 10*3/uL (0.04-0.35); Eosinophils % (A) 6.1 %; Lymphocytes # (A) 2.79 X 10*3/uL (0.90-5.00); Lymphocytes % (A) 23.8 %; Monocytes # (A) 1.69 X 10*3/uL (0.20-1.00); Monocytes % (A) 14.4 %; Neutrophils # (A) 6.41 X 10*3/uL (1.80-7.70); Neutrophils % (A) 54.8 %
--- NOTE | 2024-03-24 13:52 | P.PN ---
Subjective Progress Note Date: 03/24/24 CHIEF COMPLAINT: Constipation HISTORY OF PRESENT ILLNESS: The patient is a 63-year-old female being seen for constipation. She reports having a bowel movement yesterday. She is currently on a bowel prep and tolerating. "I want food." She reports her abdominal pain is improved today compared to yesterday. ROS: No reports of nausea and vomiting. No fevers or chills. No new chest pain. No productive sputum. Has urinary tract infection present on admission. Morbid obesity, BMI 37.8 PHYSICAL EXAM: VITAL SIGNS: Reviewed CONSTITUTIONAL: Well developed and in no acute distress. EYES: Conjuctivae without sclera icterus. Extraocular movements grossly intact. Wears glasses. HEAD, EARS, NOSE, THROAT: Moist buccal mucosa. Head is atraumatic, normocephalic. Hears conversational speech. No nasal drainage. RESPIRATORY: Non-labored respirations and equal bilateral excursions. CARDIOVASCULAR: Palpable 2+ radial pulses. ABDOMEN: No diffuse peritonitis. MUSCULOSKELETAL: Has bilateral PRAFO boots. SKIN: Good skin turgor. Well perfused. NEUROLOGIC: Cranial nerves II through XII grossly intact. No focal or lateralizing signs. PSYCH: Appropriate affect. Alert and oriented to person, place and time. CLINICAL LABS: Reviewed. WBC trending downward from 15,000-11,000. Hemoglobin down 13.8-10.9, 3 g drop since admission. Potassium down 5.3-3.2 ASSESSMENT: 1. Constipation. 2. Urinary tract infection, present on admission 3. Leukocytosis 4. Morbid obesity excess calories, BMI 37.8 5. Hyperkalemia, now hypokalemia. 6. Anemia PLAN: 1. Patient scheduled to undergo upper and lower endoscopy for constipation 2. Potassium correction ordered. Objective - Vital Signs Vital signs: Vital Signs Temp 97.5 F L 03/24/24 06:57 Pulse 67 03/24/24 08:56 Resp 19 03/24/24 08:56 BP 111/71 03/24/24 06:57 Pulse Ox 95 03/24/24 08:39 FiO2 Intake & Output 03/23/24 03/24/24 03/24/24 18:59 06:59 18:59 Intake Total 780 Output Total 1425 800 Balance -1425 -20 Intake: Oral 780 Output: Urine 1425 800 Other: Voiding Method Indwelling Catheter Indwelling Catheter Indwelling Catheter # Bowel Movements 1 1 - Labs CBC & Chem 7: 03/24/24 05:53 03/24/24 05:53 Labs: Abnormal Lab Results - Last 24 Hours (Table) 03/24/24 03/24/24 Range/Units 05:53 05:53 WBC 11.72 H (4.50-10.00) X 10*3/uL Hgb 10.9 L (12.0-15.0) g/dL Hct 36.0 L (37.2-46.3) % MCH 24.6 L (27.0-32.0) pg MCHC 30.3 L (32.0-37.0) g/dL RDW 20.5 H (11.5-14.5) % Plt Count 614 H (140-440) X 10*3/uL Immature Gran # 0.06 H (0.00-0.04) X 10*3/uL Monocytes # 1.69 H (0.20-1.00) X 10*3/uL Eosinophils # 0.72 H (0.04-0.35) X 10*3/uL Sodium 136 L (137-145) mmol/L Potassium 3.2 L (3.5-5.1) mmol/L BUN 6 L (7-17) mg/dL Creatinine 0.39 L (0.52-1.04) mg/dL Calcium 8.0 L (8.4-10.2) mg/dL Microbiology - Last 24 Hours (Table) 03/20/24 17:41 Blood Culture Gram Stain - Final Blood Blood Culture - Final Staphylococcus epidermidis Molecular ID 03/22/24 Unknown Urine Culture - Final Urine,Clean Catch 03/20/24 23:01 Anaerobic Culture - Final Heel - Left 03/20/24 17:14 Gram Stain - Final Ankle - Left Wound Culture - Final 03/20/24 23:01 Gram Stain - Final Foot - Left Wound Culture - Final
[2024-03-24] MEDS: PEG 3350 (236 GM/BTL) + LYTES 4,000 ML BOTTLE PO ONE (14:13)
[2024-03-24] MEDS: POTASSIUM CHLORIDE ER 20 MEQ TAB.ER PO SCH (15:04)
--- NOTE | 2024-03-24 15:09 | P.PN ---
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 On today's evaluation that is 03/24/2024, Patient is afebrile patient is currently on 2 L removed and denies having any shortness of breath, the patient denies any chest pain or cough, the patient denies any nausea vomiting did not have any abdominal pain, no new symptoms patient white count is down to 11.72, creatinine 0.39 blood urine culture has been negative so far Objective - Vital Signs Vital signs: Vital Signs Temp 97.5 F L 03/24/24 06:57 Pulse 67 03/24/24 08:56 Resp 19 03/24/24 08:56 BP 111/71 03/24/24 06:57 Pulse Ox 95 03/24/24 08:39 FiO2 Intake & Output 03/23/24 03/24/24 03/24/24 18:59 06:59 18:59 Intake Total 780 Output Total 1425 800 Balance -1425 -20 Intake: Oral 780 Output: Urine 1425 800 Other: Voiding Method Indwelling Catheter Indwelling Catheter Indwelling Catheter # Bowel Movements 1 1 - Exam GENERAL DESCRIPTION: An elderly female lying in bed in no distress RESPIRATORY SYSTEM: Unlabored breathing , decreased breath sounds at bases HEART: S1 S2 regular rate and rhythm , ABDOMEN: Soft , no tenderness EXTREMITIES: Patient did have a stage III pressure ulcer to the left heel area with some slough tissue Stage II pressure ulcer to the back with some skin sloughing - Labs CBC & Chem 7: 03/24/24 05:53 03/24/24 05:53 Labs: Abnormal Lab Results - Last 24 Hours (Table) 03/24/24 03/24/24 Range/Units 05:53 05:53 WBC 11.72 H (4.50-10.00) X 10*3/uL Hgb 10.9 L (12.0-15.0) g/dL Hct 36.0 L (37.2-46.3) % MCH 24.6 L (27.0-32.0) pg MCHC 30.3 L (32.0-37.0) g/dL RDW 20.5 H (11.5-14.5) % Plt Count 614 H (140-440) X 10*3/uL Immature Gran # 0.06 H (0.00-0.04) X 10*3/uL Monocytes # 1.69 H (0.20-1.00) X 10*3/uL Eosinophils # 0.72 H (0.04-0.35) X 10*3/uL Sodium 136 L (137-145) mmol/L Potassium 3.2 L (3.5-5.1) mmol/L BUN 6 L (7-17) mg/dL Creatinine 0.39 L (0.52-1.04) mg/dL Calcium 8.0 L (8.4-10.2) mg/dL Microbiology - Last 24 Hours (Table) 03/20/24 17:41 Blood Culture Gram Stain - Final Blood Blood Culture - Final Staphylococcus epidermidis Molecular ID 03/22/24 Unknown Urine Culture - Final Urine,Clean Catch 03/20/24 23:01 Anaerobic Culture - Final Heel - Left 03/20/24 17:14 Gram Stain - Final Ankle - Left Wound Culture - Final 03/20/24 23:01 Gram Stain - Final Foot - Left Wound Culture - Final Assessment and Plan (1) Leukocytosis Current Visit: Yes Status: Acute Code(s): D72.829 - ELEVATED WHITE BLOOD CELL COUNT, UNSPECIFIED SNOMED Code(s): 115286140 (2) UTI (urinary tract infection) Current Visit: Yes Status: Acute Code(s): N39.0 - URINARY TRACT INFECTION, SITE NOT SPECIFIED SNOMED Code(s): 01610360 (3) Decubitus ulcer of left heel, stage 3 Current Visit: Yes Status: Acute Code(s): L89.623 - PRESSURE ULCER OF LEFT HEEL, STAGE 3 SNOMED Code(s): 01961729955726 (4) Stage II pressure ulcer of back Current Visit: Yes Status: Acute Code(s): L89.102 - PRESSURE ULCER OF UNSPECIFIED PART OF BACK, STAGE 2 SNOMED Code(s): 84532648175627593 (5) Positive blood culture Current Visit: Yes Status: Acute Code(s): R78.81 - BACTEREMIA SNOMED Code(s): 605363660 Plan: 1patient presented to hospital with abdominal pain and this patient has been diagnosed with bladder distention with mild hydronephrosis possible incomplete emptying of the bladder did have a positive UA with burning urine concerning for symptomatic UTI likely from to the gram-negative pathogen also with evidence of constipation General Surgery following the patient 2-patient did have a pressure ulcer to the left heel area with some slough tissue culture obtained which are so far negative 3blood culture positive with staph epi possible skin contamination versus related to the heel ulcer, blood culture has been repeated 4local wound care to the left heel with Santyl followed by moist dressing and keep the area of pressure and local wound care to the back wound with dry Aquacel dressing change q. 48-hour 5patient white count is trending down to 11,000, patient to continue with Rocephin while inpatient and monitor clinical course closely Dictation was produced using [employer] dictation software. please excuse any grammatical, word or spelling errors. Time with Patient: Less than 30
--- NOTE | 2024-03-24 16:12 | P.PN ---
Subjective Progress Note Date: 03/24/24 63-year-old lady with past medical history significant for paraplegia, back surgery, chronic lower extremity wounds, splenectomy presents the ER for abdominal pain. Patient stated she was all right 3 days back when she started having abdominal pain. Patient abdominal pain was generalized, cramping in na ture, no radiating or relieving factor associated abdominal pain. Patient was complaining of nausea but no vomiting. Patient last bowel movement was 3 days ago. There was no complaint of fever or chills. There was no complaint of chest pain or shortness of breath. Patient also had pain in her left ankle with swelling, states it was secondary to pressure injury from laying in the bed. Denies any trauma. Patient is bedridden. Because of this abdominal pain, patient brought to the ER Initial lab work done in the ER showed WBC 19.3, hemoglobin 13.8, platelet count 751, sodium 130, potassium 2.5, lactate 2.1, UA positive for leukocyte Estrace, urine WBC 182, COVID-19 not detected, influenza A and influenza B negative, RSV is negative CT abdomen pelvis done showed distended urinary bladder with mild bilateral hydronephrosis no obstructing calculus visualized EKG done in the ER showed heart rate of 86 , no ST segment elevation or depression seen, no T-wave inversions seen. X-ray ankle done showed no evidence of acute fracture Patient admitted to internal medicine service 24-hour interval change 03/23/2024 Patient is seen and evaluated in room at bedside; potassium is elevated at 5.6; currently on potassium replacement protocol Vital signs are reviewed and remained stable Lab review shows WBC 15.9, hemoglobin of 12.4 and platelet count of 434, sodium 139, potassium 5.3, BUNs/creatinine of 11/0.42 patient presented to hospital with abdominal pain and this patient has been diagnosed with bladder distention with mild hydronephrosis possible incomplete emptying of the bladder did have a positive UA with burning urine concerning for symptomatic UTI likely from to the gram-negative pathogen also with evidence of constipation General Surgery following the patient -patient did have a pressure ulcer to the left heel area with some slough tissue culture obtained results will be followed blood culture positive with staph epi possible skin contamination versus related to the heel ulcer but culture will be repeated document clearance local wound care to the left heel with Medihoney followed by moist dressing and keep the area of pressure and local wound care to the back wound with dry Aquacel dressing change q. 48-hour -Patient is currently on IV Rocephin and vancomycin to continue while waiting for the workup to be completed 03/24/2024 --Patient is afebrile patient is currently on 2 L removed and denies having any shortness of breath, the patient denies any chest pain or cough, the patient denies any nausea vomiting did not have any abdominal pain, no new symptoms patient white count is down to 11.72, creatinine 0.39 blood urine culture has been negative so far patient admitted with bladder distention with mild hydronephrosis possible incomplete emptying of the bladder did have a positive UA with burning urine concerning for symptomatic UTI likely from to the gram-negative pathogen also with evidence of constipation General Surgery following the patient -patient did have a pressure ulcer to the left heel area with some slough tissue culture obtained which are so far negative blood culture positive with staph epi possible skin contamination versus related to the heel ulcer, blood culture has been repeated patient white count is trending down to 11,000, patient to continue with Rocephin while inpatient and monitor clinical course closely Objective - Vital Signs Vital signs: Vital Signs Temp 97.5 F L 03/24/24 06:57 Pulse 67 03/24/24 08:56 Resp 19 03/24/24 08:56 BP 111/71 03/24/24 06:57 Pulse Ox 95 03/24/24 08:39 FiO2 Intake & Output 03/23/24 03/24/24 03/24/24 18:59 06:59 18:59 Intake Total 780 Output Total 1425 800 Balance -1425 -20 Intake: Oral 780 Output: Urine 1425 800 Other: Voiding Method Indwelling Catheter Indwelling Catheter Indwelling Catheter # Bowel Movements 1 1 - Exam GENERAL: The patient is alert and oriented x3, not in any acute distress. Well developed, well nourished. HEENT: Pupils are round and equally reacting to light. EOMI. No scleral icterus. No conjunctival pallor. Normocephalic, atraumatic. No pharyngeal erythema. No thyromegaly. CARDIOVASCULAR: S1 and S2 present. No murmurs, rubs, or gallops. PULMONARY: Chest is clear to auscultation, no wheezing or crackles. ABDOMEN: Soft, nontender, nondistended, normoactive bowel sounds. No palpable organomegaly. MUSCULOSKELETAL: No joint swelling or deformity. EXTREMITIES: No cyanosis, clubbing, or pedal edema. NEUROLOGICAL: Gross neurological examination did not reveal any focal deficits. SKIN: No rashes. - Labs CBC & Chem 7: 03/24/24 05:53 03/24/24 05:53 Labs: Abnormal Lab Results - Last 24 Hours (Table) 03/24/24 Range/Units 05:53 Sodium 136 L (137-145) mmol/L Potassium 3.2 L (3.5-5.1) mmol/L BUN 6 L (7-17) mg/dL Creatinine 0.39 L (0.52-1.04) mg/dL Calcium 8.0 L (8.4-10.2) mg/dL Microbiology - Last 24 Hours (Table) 03/22/24 Unknown Urine Culture - Final Urine,Clean Catch 03/20/24 23:01 Anaerobic Culture - Final Heel - Left 03/20/24 17:41 Blood Culture Gram Stain - Preliminary Blood Blood Culture - Preliminary Staphylococcus epidermidis Molecular ID 03/20/24 17:14 Gram Stain - Final Ankle - Left Wound Culture - Final 03/20/24 23:01 Gram Stain - Final Foot - Left Wound Culture - Final Assessment and Plan Assessment: Sepsis UTI Hypokalemia Lactic acidosis Left foot cellulitis Urine retention Bilateral hydronephrosis Paraplegia History of back surgery Monitor vital signs Monitor CBC Monitor CMP Continue telemetry monitoring Ordered blood cultures Ordered urine cultures ordered IV fluids Ordered IV Rocephin and vancomycin Ordered antiemetics Consult ID Consult surgery Labs and medication were reviewed.. Continue same treatment. Continue with symptomatic treatment. Resume home medication. Monitor labs and vitals. DVT and GI prophylaxis. Further recommendations as per clinical course of the patient
[2024-03-25 07:58] LABS: Anisocytosis Slight; HGB 10.8 gm/dL (11.4-16.0); Hypochromasia Moderate; MCH 24.9 pg (25.0-35.0); MCHC 30.9 g/dL (31.0-37.0); MCV 80.5 fL (80.0-100.0); Mean Platelet Volume 8.2; Microcytosis Slight; Platelet Count 564 k/uL (150-450); RBC 4.34 m/uL (3.80-5.40); RDW 18.3 % (11.5-15.5); WBC 12.4 k/uL (3.8-10.6)
[2024-03-25 08:02] LABS: African American GFR (CKD) >90 (>60 ml/min/1.73 sqM); Anion Gap 5 mmol/L; Blood Urea Nitrogen 3 mg/dL (7-17); Calcium 8.1 mg/dL (8.4-10.2); Carbon Dioxide 24 mmol/L (22-30); Chloride 110 mmol/L (98-107); Glucose 87 mg/dL (74-99); Non-African American GFR(CKD) >90 (>60 ml/min/1.73 sqM); Potassium 4.1 mmol/L (3.5-5.1); Sodium 139 mmol/L (137-145)
[2024-03-25 09:51] LABS: Band Neutrophils % 1 %; Eosinophils # (M) 0.99 k/uL (0-0.7); Monocytes # (M) 1.61 k/uL (0-1.0); Myelocytes # (M) 0.12 k/uL (0); Myelocytes % 1 %; Neutrophils % (M) 58 %; Nucleated Red Blood Cells 0 /100 WBC (0-0); Total Cells Counted 200
[2024-03-25 09:53] LABS: Poikilocytosis (M) Present
--- NOTE | 2024-03-25 12:11 | P.PN ---
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 On today's evaluation that is 03/25/2023, patient has been afebrile, patient is breathing comfortably and is currently on 2 L current oxygen patient denies having any significant cough no chest pain, patient denies nausea vomiting or diarrhea and no abdominal pain or any worsening pain to the back 0.80. Patient white count is 12.4, creatinine 0.3 6 repeat culture have been negative so far Objective - Vital Signs Vital signs: Vital Signs Temp 97.5 F L 03/25/24 07:06 Pulse 59 L 03/25/24 07:06 Resp 15 03/25/24 07:06 BP 112/72 03/25/24 07:06 Pulse Ox 96 03/25/24 08:17 FiO2 Intake & Output 03/24/24 03/25/24 03/25/24 18:59 06:59 18:59 Output Total 925 1376 650 Balance -925 -1376 -650 Output: Urine 925 1375 650 Uretheral (Llanes) 650 Stool 1 Other: Voiding Method Indwelling Catheter Indwelling Catheter - Exam GENERAL DESCRIPTION: An elderly female lying in bed in no distress RESPIRATORY SYSTEM: Unlabored breathing , decreased breath sounds at bases HEART: S1 S2 regular rate and rhythm , ABDOMEN: Soft , no tenderness EXTREMITIES: Patient did have a stage III pressure ulcer to the left heel area with some slough tissue Stage II pressure ulcer to the back with some skin sloughing - Labs CBC & Chem 7: 03/25/24 07:12 03/25/24 07:12 Labs: Abnormal Lab Results - Last 24 Hours (Table) 03/24/24 03/25/24 03/25/24 Range/Units 05:53 07:12 07:12 WBC 12.4 H (3.8-10.6) k/uL Hgb 10.8 L (11.4-16.0) gm/dL MCH 24.9 L (25.0-35.0) pg MCHC 30.9 L (31.0-37.0) g/dL RDW 18.3 H (11.5-15.5) % Plt Count 564 H (150-450) k/uL Immature Gran # 0.06 H (0.00-0.04) X 10*3/uL Monocytes # 1.69 H (0.20-1.00) X 10*3/uL Monocytes # (Manual) 1.61 H (0-1.0) k/uL Eosinophils # 0.72 H (0.04-0.35) X 10*3/uL Eosinophils # (Manual) 0.99 H (0-0.7) k/uL Myelocytes # (Manual) 0.12 H (0) k/uL Chloride 110 H (98-107) mmol/L BUN 3 L (7-17) mg/dL Creatinine 0.36 L (0.52-1.04) mg/dL Calcium 8.1 L (8.4-10.2) mg/dL Microbiology - Last 24 Hours (Table) 03/23/24 16:54 Blood Culture - Preliminary Blood 03/20/24 17:41 Blood Culture Gram Stain - Final Blood Blood Culture - Final Staphylococcus epidermidis Molecular ID Assessment and Plan (1) Leukocytosis Current Visit: Yes Status: Acute Code(s): D72.829 - ELEVATED WHITE BLOOD CELL COUNT, UNSPECIFIED SNOMED Code(s): 249806064 (2) UTI (urinary tract infection) Current Visit: Yes Status: Acute Code(s): N39.0 - URINARY TRACT INFECTION, SITE NOT SPECIFIED SNOMED Code(s): 36018972 (3) Decubitus ulcer of left heel, stage 3 Current Visit: Yes Status: Acute Code(s): L89.623 - PRESSURE ULCER OF LEFT HEEL, STAGE 3 SNOMED Code(s): 56398928102527 (4) Stage II pressure ulcer of back Current Visit: Yes Status: Acute Code(s): L89.102 - PRESSURE ULCER OF UNSPECIFIED PART OF BACK, STAGE 2 SNOMED Code(s): 78808906525222144 (5) Positive blood culture Current Visit: Yes Status: Acute Code(s): R78.81 - BACTEREMIA SNOMED Code(s): 422106905 Plan: 1patient presented to hospital with abdominal pain and this patient has been diagnosed with bladder distention with mild hydronephrosis possible incomplete emptying of the bladder did have a positive UA with burning urine concerning for symptomatic UTI likely from to the gram-negative pathogen also with evidence of constipation General Surgery following the patient 2-patient did have a pressure ulcer to the left heel area with some slough tissue culture obtained which are so far negative 3blood culture positive with staph epi possible skin contamination versus related to the heel ulcer, blood culture has been repeated 4local wound care to the left heel with Santyl followed by moist dressing and keep the area of pressure and local wound care to the back wound with dry Aquacel dressing change q. 48-hour 5patient white count is slightly up today will monitor closely currently waiting for upper and lower endoscopy surgery continue with [employer] Dictation was produced using [employer] dictation software. please excuse any grammatical, word or spelling errors. Time with Patient: Less than 30
--- NOTE | 2024-03-25 12:55 | P.PN ---
Subjective Progress Note Date: 03/25/24 SURGICAL PROGRESS NOTE CHIEF COMPLAINT: Abdominal pain HISTORY OF PRESENT ILLNESS: Surgical service following regards to patient's constipation and abdominal pain. Patient only completed half of the bowel prep yesterday. Stools are not clear. Vital stable. WBC is 12.4 Hgb 10.8 platelets 564 sodium 139 potassium 4.1 creatinine 0.36 PHYSICAL EXAM: VITAL SIGNS: Reviewed. GENERAL: Well-developed in no acute distress. ABDOMEN: Soft. Nondistended. Nontender. NEUROLOGIC: Alert and oriented. Cranial nerves II through XII grossly intact. ASSESSMENT: 1. Constipation. Improving. Patient having bowel movements. 2. Urinary retention status post Llanes catheter placement 3. Hypokalemia corrected 4. UTI and left ankle wound 5. Anemia PLAN: -Patient scheduled for colonoscopy today with Dr. Clifford Physician [employer] note has been reviewed by physician. Signing provider agrees with the documented findings, assessment, and plan of care. Objective - Vital Signs Vital signs: Vital Signs Temp 97.5 F L 03/25/24 07:06 Pulse 59 L 03/25/24 07:06 Resp 15 03/25/24 07:06 BP 112/72 03/25/24 07:06 Pulse Ox 96 03/25/24 08:17 FiO2 Intake & Output 03/24/24 03/25/24 03/25/24 18:59 06:59 18:59 Output Total 925 1376 650 Balance -925 -1376 -650 Output: Urine 925 1375 650 Uretheral (Llanes) 650 Stool 1 Other: Voiding Method Indwelling Catheter Indwelling Catheter Indwelling Catheter - Labs CBC & Chem 7: 03/25/24 07:12 03/25/24 07:12 Labs: Abnormal Lab Results - Last 24 Hours (Table) 03/25/24 03/25/24 Range/Units 07:12 07:12 WBC 12.4 H (3.8-10.6) k/uL Hgb 10.8 L (11.4-16.0) gm/dL MCH 24.9 L (25.0-35.0) pg MCHC 30.9 L (31.0-37.0) g/dL RDW 18.3 H (11.5-15.5) % Plt Count 564 H (150-450) k/uL Monocytes # (Manual) 1.61 H (0-1.0) k/uL Eosinophils # (Manual) 0.99 H (0-0.7) k/uL Myelocytes # (Manual) 0.12 H (0) k/uL Chloride 110 H (98-107) mmol/L BUN 3 L (7-17) mg/dL Creatinine 0.36 L (0.52-1.04) mg/dL Calcium 8.1 L (8.4-10.2) mg/dL Microbiology - Last 24 Hours (Table) 03/23/24 16:54 Blood Culture - Preliminary Blood 03/20/24 17:41 Blood Culture Gram Stain - Final Blood Blood Culture - Final Staphylococcus epidermidis Molecular ID
[2024-03-25] MEDS: IV FLUID CONTINUATION 1,000 ML IV ONE (15:45)
[2024-03-25] MEDS ORDERED: LIDOCAINE 1% INJ 10MG/ML (20 ML MDV) ONE (15:46)
[2024-03-25] MEDS ORDERED: PROPOFOL 10 MG/ML 20 ML VIAL IV ONE (15:46)
--- NOTE | 2024-03-25 16:07 | P.OP ---
Date of Procedure: 03/25/24 Preoperative Diagnosis: Constipation Postoperative Diagnosis: Normal colon Procedure(s) Performed: Colonoscopy Anesthesia: MAC Surgeon: Reji Clifford Pathology: none sent Condition: stable Disposition: PACU Description of Procedure: PROCEDURE: The patient was placed on the endoscopy table in the lateral position. Digital rectal examination was performed which revealed no abnormalities. s. Flexible colonoscope was then placed in the patient's anus and passed throughout the entire colon. The ileocecal valve was visualized. The cecum, ascending, transverse, descending and sigmoid colon were normal. The rectum was normal as well. There were no masses, polyps or diverticula noted in the entire colon. SUMMARY OF FINDINGS: Normal colonoscopy.
[2024-03-26 08:43] LABS: Magnesium 1.6 mg/dL (1.5-2.4)
[2024-03-26] MEDS ORDERED: Magnesium Replacement Protocol 1 EACH MISC MISCELLANE PRN (08:59)
[2024-03-26 09:07] LABS: Basophils # (A) 0.06 X 10*3/uL (0.00-0.10); Basophils % (A) 0.6 %; Eosinophils # (A) 0.55 X 10*3/uL (0.04-0.35); Eosinophils % (A) 5.5 %; HCT 35.4 % (37.2-46.3); HGB 10.8 g/dL (12.0-15.0); Lymphocytes # (A) 3.64 X 10*3/uL (0.90-5.00); Lymphocytes % (A) 36.1 %; MCH 24.5 pg (27.0-32.0); MCHC 30.5 g/dL (32.0-37.0); MCV 80.5 FL (80.0-97.0); Mean Platelet Volume 9.8 FL (9.5-12.2); Monocytes # (A) 1.36 X 10*3/uL (0.20-1.00); Monocytes % (A) 13.5 %; NRBC Per 100 WBC 0 X 10*3/uL (0.00-0.01); Neutrophils % (A) 43.7 %; Platelet Count 607 X 10*3/uL (140-440); RDW 20.3 % (11.5-14.5); WBC 10.07 X 10*3/uL (4.50-10.00)
[2024-03-26] MEDS: MAGNESIUM SULFATE-D5W PMX 1 GM in DEXTROSE/WATER 1 100ML.BAG IVPB SCH (09:54)
--- NOTE | 2024-03-26 10:01 | P.PN ---
Subjective Progress Note Date: 03/25/24 63-year-old lady with past medical history significant for paraplegia, back surgery, chronic lower extremity wounds, splenectomy presents the ER for abdominal pain. Patient stated she was all right 3 days back when she started having abdominal pain. Patient abdominal pain was generalized, cramping in n ature, no radiating or relieving factor associated abdominal pain. Patient was complaining of nausea but no vomiting. Patient last bowel movement was 3 days ago. There was no complaint of fever or chills. There was no complaint of chest pain or shortness of breath. Patient also had pain in her left ankle with swelling, states it was secondary to pressure injury from laying in the bed. Denies any trauma. Patient is bedridden. Because of this abdominal pain, patient brought to the ER Initial lab work done in the ER showed WBC 19.3, hemoglobin 13.8, platelet count 751, sodium 130, potassium 2.5, lactate 2.1, UA positive for leukocyte Estrace, urine WBC 182, COVID-19 not detected, influenza A and influenza B negative, RSV is negative CT abdomen pelvis done showed distended urinary bladder with mild bilateral hydronephrosis no obstructing calculus visualized EKG done in the ER showed heart rate of 86 , no ST segment elevation or depression seen, no T-wave inversions seen. X-ray ankle done showed no evidence of acute fracture Patient admitted to internal medicine service 24-hour interval change 03/23/2024 Patient is seen and evaluated in room at bedside; potassium is elevated at 5.6; currently on potassium replacement protocol Vital signs are reviewed and remained stable Lab review shows WBC 15.9, hemoglobin of 12.4 and platelet count of 434, sodium 139, potassium 5.3, BUNs/creatinine of 11/0.42 patient presented to hospital with abdominal pain and this patient has been diagnosed with bladder distention with mild hydronephrosis possible incomplete emptying of the bladder did have a positive UA with burning urine concerning for symptomatic UTI likely from to the gram-negative pathogen also with evidence of constipation General Surgery following the patient -patient did have a pressure ulcer to the left heel area with some slough tissue culture obtained results will be followed blood culture positive with staph epi possible skin contamination versus related to the heel ulcer but culture will be repeated document clearance local wound care to the left heel with Medihoney followed by moist dressing and keep the area of pressure and local wound care to the back wound with dry Aquacel dressing change q. 48-hour -Patient is currently on IV Rocephin and vancomycin to continue while waiting for the workup to be completed 03/24/2024 --Patient is afebrile patient is currently on 2 L removed and denies having any shortness of breath, the patient denies any chest pain or cough, the patient denies any nausea vomiting did not have any abdominal pain, no new symptoms patient white count is down to 11.72, creatinine 0.39 blood urine culture has been negative so far patient admitted with bladder distention with mild hydronephrosis possible incomplete emptying of the bladder did have a positive UA with burning urine concerning for symptomatic UTI likely from to the gram-negative pathogen also with evidence of constipation General Surgery following the patient -patient did have a pressure ulcer to the left heel area with some slough tissue culture obtained which are so far negative blood culture positive with staph epi possible skin contamination versus related to the heel ulcer, blood culture has been repeated patient white count is trending down to 11,000, patient to continue with Rocephin while inpatient and monitor clinical course closely 03/25/2024 Patient is seen in follow-up today maintained on antibiotics with infectious disease following along with general surgery as patient is scheduled to undergo EGD/colonoscopy today. Patient is currently n.p.o. Patient is continued on antibiotics for urinary tract infection and also continue local wound care for the left foot heel wound. Patient will be going to [facility] on discharge and will discuss with case management regarding discharge planning. Patient is currently afebrile with no reports of chest pain or shortness of breath. Patient was currently wearing oxygen although not on and maintaining oxygen saturations. Review of systems: Constitutional: No reports of fatigue, fever, or chills Cardiovascular: No reports of chest pain or palpitations Respiratory: No reports of shortness of breath or cough GI: No reports of nausea, vomiting, or diarrhea : No reports of dysuria or retention Neurovascular: reports of generalized weakness All medications have been reviewed Physical exam: GENERAL: The patient is alert and oriented x3, not in any acute distress. Well developed, elderly appearing, obese HEENT: Pupils are round and equally reacting to light. EOMI. No scleral icterus. No conjunctival pallor. Normocephalic, atraumatic. No pharyngeal erythema. No thyromegaly. CARDIOVASCULAR: S1 and S2 present. No murmurs, rubs, or gallops. PULMONARY: Diminished breath sounds bilaterally otherwise chest is clear to auscultation, no wheezing or crackles. ABDOMEN: Soft, obese nontender, nondistended, normoactive bowel sounds. No palpable organomegaly. MUSCULOSKELETAL: No joint swelling or deformity. EXTREMITIES: No cyanosis, clubbing, or pedal edema. NEUROLOGICAL: Gross neurological examination did not reveal any focal deficits. Diffusely weak SKIN: No rashes. Assessment: Acute urinary tract infection, present on admission with sepsis Hypokalemia, improved Lactic acidosis, improved secondary to above Constipation, improved patient is having bowel movements and is status post colonoscopy within normal colonoscopy noted Stage III pressure ulcer of the left heel with concerns of left foot cellulitis, present on admission Stage II pressure ulcer of the back, present on admission Urinary retention requiring indwelling Llanes catheter Bilateral hydronephrosis History of paraplegia History of back surgery Obesity with a BMI of 37.8 GI prophylaxis DVT prophylaxis Full code Plan: Patient maintained on antibiotics while awaiting cultures with infectious disease following continued on ceftriaxone. Will discuss further regarding discharge planning Patient evaluated by physical therapy noted to have generalized weakness recommending rehab and patient is agreeable. Patient will require insurance authorization which is pending ID recommendations prior to submitting. Encouraged increase activity as tolerated with sitting up in the chair more often General Surgery following and patient is scheduled to undergo colonoscopy today which is pending. Patient is having bowel movements and tolerated the prep Follow-up on repeat labs Replace electrolytes per protocol Due to multiple complex medical issues, overall prognosis is guarded The impression and plan of care has been dictated by Nahomy Washington, Nurse Practitioner as directed. Dr. Emile MD I have performed a history and examination and MDM of this patient, discussed the same with the dictator, and agree with the dictator's assessment and plan as written ,documented as a scribe. Based on total visit time, I have performed more than 50% of the visit. Objective - Vital Signs Vital signs: Vital Signs Temp 97.8 F 03/26/24 07:18 Pulse 65 03/26/24 07:18 Resp 17 03/26/24 07:18 BP 121/80 03/26/24 07:18 Pulse Ox 93 L 03/26/24 07:18 FiO2 Intake & Output 03/25/24 03/26/24 03/26/24 18:59 06:59 18:59 Intake Total 50 900 Output Total 2450 1325 Balance -2400 -425 Weight 90.718 kg Intake: IV 50 Intake, IV Titration 900 Amount Sodium Chloride 0.9% 1, 900 000 ml @ 75 mls/hr IV . [id number] [facility] Rx#:[id number] Output: Urine 2450 1325 Uretheral (Llanes) 1225 Other: Voiding Method Indwelling Catheter Indwelling Catheter Indwelling Catheter # Bowel Movements 2 - Labs CBC & Chem 7: 03/26/24 04:39 03/25/24 07:12 Labs: Abnormal Lab Results - Last 24 Hours (Table) 03/25/24 03/26/24 Range/Units 07:12 04:39 WBC 10.07 H (4.50-10.00) X 10*3/uL Hgb 10.8 L (12.0-15.0) g/dL Hct 35.4 L (37.2-46.3) % MCH 24.5 L (27.0-32.0) pg MCHC 30.5 L (32.0-37.0) g/dL RDW 20.3 H (11.5-14.5) % Plt Count 607 H (140-440) X 10*3/uL Immature Gran # 0.06 H (0.00-0.04) X 10*3/uL Monocytes # 1.36 H (0.20-1.00) X 10*3/uL Monocytes # (Manual) 1.61 H (0-1.0) k/uL Eosinophils # 0.55 H (0.04-0.35) X 10*3/uL Eosinophils # (Manual) 0.99 H (0-0.7) k/uL Myelocytes # (Manual) 0.12 H (0) k/uL Microbiology - Last 24 Hours (Table) 03/23/24 16:54 Blood Culture - Preliminary Blood 03/24/24 05:53 Blood Culture - Preliminary Blood 03/20/24 17:14 Gram Stain - Final Ankle - Left Wound Culture - Final 03/20/24 23:01 Gram Stain - Final Foot - Left Wound Culture - Final
[2024-03-26 10:04] LABS: BUN/Creat Ratio <11.67 Ratio (12.00-20.00); Blood Urea Nitrogen <3.5 mg/dL (9.0-27.0); Calcium 7.8 mg/dL (8.7-10.3); Carbon Dioxide 22.6 mmol/L (21.6-31.8); Chloride 109 mmol/L (96-109); Glucose 94 mg/dL (70-110); Potassium 3.5 mmol/L (3.5-5.5); Sodium 140 mmol/L (135-145)
--- NOTE | 2024-03-26 13:09 | CDI ---
Documentation Clarification Form Date: 03/22/2024 02:18:00 PM From: Suzette Bryant RN, CCDS Email: [email or web address] Admit Date: 03/20/2024 09:24:00 PM Patient Name: Na Saxena Visit Number: [id number] Discharge Date: ATTENTION: The Clinical Documentation Specialists (CDI) and [facility] Coding Staff appreciate your assistance in clarifying documentation. Please respond to the clarification below the line at the bottom and electronically sign. The CDI & [facility] Coding staff will review the response and follow-up if needed. Please note: Queries are made part of the Legal Health Record. If you have any questions, please contact the author of this message via ITS. Doctor Dylan Tsai Sepsis is documented in the H&P and progress notes which may lack sufficient clinical evidence/support in the medical record. Additional clarification is requested. History/Risk Factors: Paraplegia, back surgery, chronic lower extremity wounds and bedbound. Presents to the ER for abdominal pain. Admitted with sepsis and UTI. Clinical Indicators: 03/21 H&P: "Sepsis, UTI, Lactic acidosis." 03/21 ID: "afebrile, no fever has been recorded. Subsequently patient was not tachycardic hypotensive or hypoxic. Patient did have a white count of 19.3 with a left shift. Did have a positive UA with burning urine concerning for symptomatic UTI likely from gram-negative pathogen. Also, with evidence of constipation. General Surgery has been consulted. Patient did have a pressure ulcer to the left ankle area but no significant cellulitis." 03/20 VS: T 97.9 HR 86 RR 19 BP 115/64 pox 98% 03/20 Labs: WBC 19.3; lactic acid 2.1-1.1; +UA Treatment: IV Vancomycin 1500mg x1 on 03/20; IV Vancomycin 1500mg Q16H 03/21-03/22; 2L 0.9 NS IV bolus on 03/20; IV Zosyn 3.375gm x1 on 03/20; IV Rocephin 2gm Q24H 03/21-present After work up and study, please clarify which diagnosis is most appropriate? [ ] Sepsis ruled out [@@@ ] Sepsis treated prophylactically [ ] Sepsis is a valid diagnosis as evidence by the following: (Please add rationale): [ ] Other, please specify [ ] Unable to determine MTDD
--- NOTE | 2024-03-26 13:48 | P.PN ---
Subjective Progress Note Date: 03/26/24 SURGICAL PROGRESS NOTE CHIEF COMPLAINT: Abdominal pain HISTORY OF PRESENT ILLNESS: Patient had normal colonoscopy yesterday. Constipation has improved. She is tolerating diet. Surgical service asked to evaluate patient's sacral wound. Afebrile. WBC is down from 12.4-10 Hgb 10.8 platelets 607 Patient seen and examined with Dr. Clifford PHYSICAL EXAM: VITAL SIGNS: Reviewed. GENERAL: Well-developed in no acute distress. ABDOMEN: Soft. Nondistended. Nontender. SKIN: Sacral ulcer with slough ASSESSMENT: 1. Constipation. resolved 2. Urinary retention status post Llanes catheter placement 3. Hypokalemia corrected 4. UTI and left ankle wound 5. Anemia 7. Sacral ulcer with slough PLAN: -No plans for surgical debridement of sacral ulcer -Constipation improved. Recommend patient continues a good bowel regimen at discharge. Physician Seconds Inspector note has been reviewed by physician. Signing provider agrees with the documented findings, assessment, and plan of care. Objective - Vital Signs Vital signs: Vital Signs Temp 97.9 F 03/26/24 13:03 Pulse 61 03/26/24 13:03 Resp 17 03/26/24 13:03 BP 133/80 03/26/24 13:03 Pulse Ox 95 03/26/24 13:03 FiO2 Intake & Output 03/25/24 03/26/24 03/26/24 18:59 06:59 18:59 Intake Total 50 900 Output Total 2450 1325 Balance -2400 -425 Weight 90.718 kg Intake: IV 50 Intake, IV Titration 900 Amount Sodium Chloride 0.9% 1, 900 000 ml @ 75 mls/hr IV . [id number] [facility] Rx#:[id number] Output: Urine 2450 1325 Uretheral (Llanes) 1225 Other: Voiding Method Indwelling Catheter Indwelling Catheter Indwelling Catheter # Bowel Movements 2 - Labs CBC & Chem 7: 03/26/24 04:39 03/26/24 04:39 Labs: Abnormal Lab Results - Last 24 Hours (Table) 03/26/24 03/26/24 Range/Units 04:39 04:39 WBC 10.07 H (4.50-10.00) X 10*3/uL Hgb 10.8 L (12.0-15.0) g/dL Hct 35.4 L (37.2-46.3) % MCH 24.5 L (27.0-32.0) pg MCHC 30.5 L (32.0-37.0) g/dL RDW 20.3 H (11.5-14.5) % Plt Count 607 H (140-440) X 10*3/uL Immature Gran # 0.06 H (0.00-0.04) X 10*3/uL Monocytes # 1.36 H (0.20-1.00) X 10*3/uL Eosinophils # 0.55 H (0.04-0.35) X 10*3/uL BUN <3.5 L (9.0-27.0) mg/dL Creatinine 0.3 L (0.6-1.5) mg/dL BUN/Creatinine Ratio <11.67 L (12.00-20.00) Ratio Calcium 7.8 L (8.7-10.3) mg/dL Microbiology - Last 24 Hours (Table) 03/24/24 05:53 Blood Culture - Preliminary Blood 03/23/24 16:54 Blood Culture - Preliminary Blood 03/20/24 17:14 Gram Stain - Final Ankle - Left Wound Culture - Final 03/20/24 23:01 Gram Stain - Final Foot - Left Wound Culture - Final
--- NOTE | 2024-03-26 15:32 | P.PN ---
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 On today's evaluation that is 03/26/2024, Patient is afebrile this morning patient denies having any chest pain shortness of breath or cough, the patient is currently on room air, patient denies any abdominal pain no diarrhea no nausea no vomiting or any worsening pain to the sacral and left heel wound. Patient white count is 10.07 creatinine 0.3 blood culture repeat has been negative Objective - Vital Signs Vital signs: Vital Signs Temp 97.8 F 03/26/24 07:18 Pulse 65 03/26/24 07:18 Resp 17 03/26/24 07:18 BP 121/80 03/26/24 07:18 Pulse Ox 93 L 03/26/24 07:18 FiO2 Intake & Output 03/25/24 03/26/24 03/26/24 18:59 06:59 18:59 Intake Total 50 900 Output Total 2450 1325 Balance -2400 -425 Weight 90.718 kg Intake: IV 50 Intake, IV Titration 900 Amount Sodium Chloride 0.9% 1, 900 000 ml @ 75 mls/hr IV . [id number] [facility] Rx#:[id number] Output: Urine 2450 1325 Uretheral (Llanes) 1225 Other: Voiding Method Indwelling Catheter Indwelling Catheter Indwelling Catheter # Bowel Movements 2 - Exam GENERAL DESCRIPTION: An elderly female lying in bed in no distress RESPIRATORY SYSTEM: Unlabored breathing , decreased breath sounds at bases HEART: S1 S2 regular rate and rhythm , ABDOMEN: Soft , no tenderness EXTREMITIES: Patient did have a stage III pressure ulcer to the left heel area with slough tissue Stage II pressure ulcer to the back with some skin sloughing - Labs CBC & Chem 7: 03/26/24 04:39 03/26/24 04:39 Labs: Abnormal Lab Results - Last 24 Hours (Table) 03/26/24 03/26/24 Range/Units 04:39 04:39 WBC 10.07 H (4.50-10.00) X 10*3/uL Hgb 10.8 L (12.0-15.0) g/dL Hct 35.4 L (37.2-46.3) % MCH 24.5 L (27.0-32.0) pg MCHC 30.5 L (32.0-37.0) g/dL RDW 20.3 H (11.5-14.5) % Plt Count 607 H (140-440) X 10*3/uL Immature Gran # 0.06 H (0.00-0.04) X 10*3/uL Monocytes # 1.36 H (0.20-1.00) X 10*3/uL Eosinophils # 0.55 H (0.04-0.35) X 10*3/uL BUN <3.5 L (9.0-27.0) mg/dL Creatinine 0.3 L (0.6-1.5) mg/dL BUN/Creatinine Ratio <11.67 L (12.00-20.00) Ratio Calcium 7.8 L (8.7-10.3) mg/dL Microbiology - Last 24 Hours (Table) 03/23/24 16:54 Blood Culture - Preliminary Blood 03/24/24 05:53 Blood Culture - Preliminary Blood 03/20/24 17:14 Gram Stain - Final Ankle - Left Wound Culture - Final 03/20/24 23:01 Gram Stain - Final Foot - Left Wound Culture - Final Assessment and Plan (1) Leukocytosis Current Visit: Yes Status: Acute Code(s): D72.829 - ELEVATED WHITE BLOOD CELL COUNT, UNSPECIFIED SNOMED Code(s): 596919052 (2) UTI (urinary tract infection) Current Visit: Yes Status: Acute Code(s): N39.0 - URINARY TRACT INFECTION, SITE NOT SPECIFIED SNOMED Code(s): 81333306 (3) Decubitus ulcer of left heel, stage 3 Current Visit: Yes Status: Acute Code(s): L89.623 - PRESSURE ULCER OF LEFT HEEL, STAGE 3 SNOMED Code(s): 35276471784210 (4) Stage II pressure ulcer of back Current Visit: Yes Status: Acute Code(s): L89.102 - PRESSURE ULCER OF U NSPECIFIED PART OF BACK, STAGE 2 SNOMED Code(s): 30976064215109311 (5) Positive blood culture Current Visit: Yes Status: Acute Code(s): R78.81 - BACTEREMIA SNOMED Code(s): 627416197 Plan: 1patient presented to hospital with abdominal pain and this patient has been diagnosed with bladder distention with mild hydronephrosis possible incomplete emptying of the bladder did have a positive UA with burning urine concerning for symptomatic UTI likely from to the gram-negative pathogen also with evidence of constipation General Surgery following the patient 2-patient did have a pressure ulcer to the left heel area with some slough tissue culture obtained which are so far negative 3blood culture positive with staph epi possible skin contamination versus related to the heel ulcer, blood culture has been repeated which has been negative so far 4local wound care to the left heel with Santyl followed by moist dressing and keep the area of pressure keeping in mind significant slough tissue we will consult was consulted for debridement and deep culture, discussed with surgery does not need any debridement for the sacral pressure ulcer 5patient white count is has almost normalized continue with Rocephin Dictation was produced using [employer] dictation software. please excuse any grammatical, word or spelling errors. Time with Patient: Less than 30
--- NOTE | 2024-03-26 16:33 | P.GSCN ---
History of Present Illness History of present illness: 63-year-old white female patient has a history of paraplegia patient has a stage III pressure ulcer left heel with some necrotic tissue I was consulted for wound debridement and deep culture Medical history history of chronic renal failure history of cirrhosis, patient also has a history of cancer of the lung Patient was seen in her room left heel has a open wound stage III pressure ulcer with some necrotic tissue Chest few The lung bases. Second sound present Abdomen soft nontender femorals are 1+ bilateral necrotic wound noted on the left heel superficial wound on the right ankle and dry scab on the lateral aspect of the foot Plan is wound debridement and deep culture Past Medical History Past Medical History: Cancer, Hearing Disorder / Deafness Additional Past Medical History / Comment(s): back pain; "several tia's-Last TIA 1 1/2 YEARS AGO, pluerisy, migraines, past falls, "was told at [facility] she had n on-alcoholic cirrhosis". lung cancer History of Any Multi-Drug Resistant Organisms: None Reported Past Surgical History: Back Surgery, Breast Surgery, Hysterectomy Additional Past Surgical History / Comment(s): back sx, neck sx. spleenectomy- d/t injury; benign R Breast lumpectomy, sinus sx Past Anesthesia/Blood Transfusion Reactions: No Reported Reaction Additional Past Anesthesia/Blood Transfusion Reaction / Comm: Pt hs clausterphobia Past Psychological History: Depression Smoking Status: Current some day smoker Past Alcohol Use History: None Reported Past Drug Use History: None Reported - Past Family History Mother Family Medical History: Cancer Additional Family Medical History / Comment(s): Father History Unknown: Yes Family Medical History: No Reported History Additional Family Medical History / Comment(s): Father was murdered Medications and Allergies Home Medications Medication Instructions Recorded Confirmed Type Atorvastatin [Lipitor] 80 mg PO HS 03/21/24 03/21/24 History DULoxetine HCL [Cymbalta] 60 mg PO DAILY 03/21/24 03/21/24 History Fluticasone Propion/Salmeterol 1 puff INHALATION RT-BID 03/21/24 03/21/24 History [Fluticasone-Salmeterol 250-50] Gabapentin [Neurontin] 300 mg PO TID 03/21/24 03/21/24 History Ipratropium-Albuterol Nebulize 3 ml INHALATION RT-TID PRN 03/21/24 03/21/24 History [Duoneb 0.5 mg-3 mg/3 ml Soln] Metoprolol Tartrate [Lopressor] 25 mg PO BID 03/21/24 03/21/24 History Ondansetron [Zofran] 4 mg PO Q6H PRN 03/21/24 03/21/24 History oxyCODONE HCL [Roxicodone] 5 mg PO Q6HR PRN 03/21/24 03/21/24 History Allergies Allergy/AdvReac Type Severity Reaction Status Date / Time gentamicin Allergy Anaphylaxis Verified 03/21/24 09:54 Surgical - Exam Vital Signs Temp Pulse Resp BP Pulse Ox 97.9 F 86 19 115/64 98 03/20/24 16:55 03/20/24 16:55 03/20/24 16:55 03/20/24 16:55 03/20/24 16:55 Results - Labs 03/26/24 04:39 03/26/24 04:39 Abnormal Lab Results - Last 24 Hours (Table) 03/26/24 03/26/24 Range/Units 04:39 04:39 WBC 10.07 H (4.50-10.00) X 10*3/uL Hgb 10.8 L (12.0-15.0) g/dL Hct 35.4 L (37.2-46.3) % MCH 24.5 L (27.0-32.0) pg MCHC 30.5 L (32.0-37.0) g/dL RDW 20.3 H (11.5-14.5) % Plt Count 607 H (140-440) X 10*3/uL Immature Gran # 0.06 H (0.00-0.04) X 10*3/uL Monocytes # 1.36 H (0.20-1.00) X 10*3/uL Eosinophils # 0.55 H (0.04-0.35) X 10*3/uL BUN <3.5 L (9.0-27.0) mg/dL Creatinine 0.3 L (0.6-1.5) mg/dL BUN/Creatinine Ratio <11.67 L (12.00-20.00) Ratio Calcium 7.8 L (8.7-10.3) mg/dL Microbiology - Last 24 Hours (Table) 03/24/24 05:53 Blood Culture - Preliminary Blood 03/23/24 16:54 Blood Culture - Preliminary Blood 03/20/24 17:14 Gram Stain - Final Ankle - Left Wound Culture - Final 03/20/24 23:01 Gram Stain - Final Foot - Left Wound Culture - Final Diabetes panel 03/26/24 Range/Units 04:39 Sodium 140 (135-145) mmol/L Potassium 3.5 (3.5-5.5) mmol/L Chloride 109 (96-109) mmol/L Carbon Dioxide 22.6 (21.6-31.8) mmol/L BUN <3.5 L (9.0-27.0) mg/dL Creatinine 0.3 L (0.6-1.5) mg/dL Glucose 94 (70-110) mg/dL Calcium 7.8 L (8.7-10.3) mg/dL Calcium panel 03/26/24 Range/Units 04:39 Calcium 7.8 L (8.7-10.3) mg/dL Pituitary panel 03/26/24 Range/Units 04:39 Sodium 140 (135-145) mmol/L Potassium 3.5 (3.5-5.5) mmol/L Chloride 109 (96-109) mmol/L Carbon Dioxide 22.6 (21.6-31.8) mmol/L BUN <3.5 L (9.0-27.0) mg/dL Creatinine 0.3 L (0.6-1.5) mg/dL Glucose 94 (70-110) mg/dL Calcium 7.8 L (8.7-10.3) mg/dL Adrenal panel 03/26/24 Range/Units 04:39 Sodium 140 (135-145) mmol/L Potassium 3.5 (3.5-5.5) mmol/L Chloride 109 (96-109) mmol/L Carbon Dioxide 22.6 (21.6-31.8) mmol/L BUN <3.5 L (9.0-27.0) mg/dL Creatinine 0.3 L (0.6-1.5) mg/dL Glucose 94 (70-110) mg/dL Calcium 7.8 L (8.7-10.3) mg/dL
[2024-03-26] MEDS: SILVER NITRATE APPLICATOR 1 EACH STICK..EA. TOPICAL ONE (17:00)
[2024-03-26] MEDS: LIDOCAINE 1% INJ 10MG/ML (20 ML MDV) SQ ONE (17:01)
--- NOTE | 2024-03-26 17:11 | P.PN ---
Progress Note - Text Preop diagnosis pressure ulcer stage III left heel measurement is 3 x 2 cm postop Postop same measurement is 3 x 2 x 0.5 cm Procedure left foot was prepped patient has a pressure ulcer left heel 1% lidocaine for infiltrated excision debridement performed down to subcu tissue fat the tissue was necrotic or excised with sharp knife was sent for deep culture nitro stick was used to control the bleeding Santyl cream was applied to the wound dressing applied patient tarted the procedure well dressing should be changed daily with Santyl cream
--- NOTE | 2024-03-27 05:54 | P.PN ---
Subjective Progress Note Date: 03/26/24 63-year-old lady with past medical history significant for paraplegia, back surgery, chronic lower extremity wounds, splenectomy presents the ER for abdominal pain. Patient stated she was all right 3 days back when she started having abdominal pain. Patient abdominal pain was generalized, cramping in n ature, no radiating or relieving factor associated abdominal pain. Patient was complaining of nausea but no vomiting. Patient last bowel movement was 3 days ago. There was no complaint of fever or chills. There was no complaint of chest pain or shortness of breath. Patient also had pain in her left ankle with swelling, states it was secondary to pressure injury from laying in the bed. Denies any trauma. Patient is bedridden. Because of this abdominal pain, patient brought to the ER Initial lab work done in the ER showed WBC 19.3, hemoglobin 13.8, platelet count 751, sodium 130, potassium 2.5, lactate 2.1, UA positive for leukocyte Estrace, urine WBC 182, COVID-19 not detected, influenza A and influenza B negative, RSV is negative CT abdomen pelvis done showed distended urinary bladder with mild bilateral hydronephrosis no obstructing calculus visualized EKG done in the ER showed heart rate of 86 , no ST segment elevation or depression seen, no T-wave inversions seen. X-ray ankle done showed no evidence of acute fracture Patient admitted to internal medicine service 24-hour interval change 03/23/2024 Patient is seen and evaluated in room at bedside; potassium is elevated at 5.6; currently on potassium replacement protocol Vital signs are reviewed and remained stable Lab review shows WBC 15.9, hemoglobin of 12.4 and platelet count of 434, sodium 139, potassium 5.3, BUNs/creatinine of 11/0.42 patient presented to hospital with abdominal pain and this patient has been diagnosed with bladder distention with mild hydronephrosis possible incomplete emptying of the bladder did have a positive UA with burning urine concerning for symptomatic UTI likely from to the gram-negative pathogen also with evidence of constipation General Surgery following the patient -patient did have a pressure ulcer to the left heel area with some slough tissue culture obtained results will be followed blood culture positive with staph epi possible skin contamination versus related to the heel ulcer but culture will be repeated document clearance local wound care to the left heel with Medihoney followed by moist dressing and keep the area of pressure and local wound care to the back wound with dry Aquacel dressing change q. 48-hour -Patient is currently on IV Rocephin and vancomycin to continue while waiting for the workup to be completed 03/24/2024 --Patient is afebrile patient is currently on 2 L removed and denies having any shortness of breath, the patient denies any chest pain or cough, the patient denies any nausea vomiting did not have any abdominal pain, no new symptoms patient white count is down to 11.72, creatinine 0.39 blood urine culture has been negative so far patient admitted with bladder distention with mild hydronephrosis possible incomplete emptying of the bladder did have a positive UA with burning urine concerning for symptomatic UTI likely from to the gram-negative pathogen also with evidence of constipation General Surgery following the patient -patient did have a pressure ulcer to the left heel area with some slough tissue culture obtained which are so far negative blood culture positive with staph epi possible skin contamination versus related to the heel ulcer, blood culture has been repeated patient white count is trending down to 11,000, patient to continue with Rocephin while inpatient and monitor clinical course closely 03/25/2024 Patient is seen in follow-up today maintained on antibiotics with infectious disease following along with general surgery as patient is scheduled to undergo EGD/colonoscopy today. Patient is currently n.p.o. Patient is continued on antibiotics for urinary tract infection and also continue local wound care for the left foot heel wound. Patient will be going to ECF on discharge and will discuss with case management regarding discharge planning. Patient is currently afebrile with no reports of chest pain or shortness of breath. Patient was currently wearing oxygen although not on and maintaining oxygen saturations. 03/26/2024 Patient is seen in follow-up today maintained on antibiotics and patient is status post colonoscopy which was normal and diet has been advanced. Patient continues on antibiotics with infectious disease following and will reconsult vascular surgery Dr. Canela for further evaluation of the left heel and pos sible debridement. Patient will require cultures to be finalized to determine discharge antibiotics. Patient with significant weakness would benefit from ECF and case management following working on referrals. Patient is afebrile with no reports of chest pain. Patient continued on 2 L of oxygen and reports she does not wear it at home. Wean FiO2 as tolerated. Review of systems: Constitutional: No reports of fatigue, fever, or chills Cardiovascular: No reports of chest pain or palpitations Respiratory: No reports of shortness of breath or cough GI: No reports of nausea, vomiting, or diarrhea : No reports of dysuria or retention Neurovascular: reports of generalized weakness All medications have been reviewed Physical exam: GENERAL: The patient is alert and oriented x3, not in any acute distress. Well developed, elderly appearing, obese HEENT: Pupils are round and equally reacting to light. EOMI. No scleral icterus. No conjunctival pallor. Normocephalic, atraumatic. No pharyngeal erythema. No thyromegaly. CARDIOVASCULAR: S1 and S2 present. No murmurs, rubs, or gallops. PULMONARY: Diminished breath sounds bilaterally otherwise chest is clear to auscultation, no wheezing or crackles. ABDOMEN: Soft, obese nontender, nondistended, normoactive bowel sounds. No palpable organomegaly. MUSCULOSKELETAL: No joint swelling or deformity. EXTREMITIES: No cyanosis, clubbing, or pedal edema. NEUROLOGICAL: Gross neurological examination did not reveal any focal deficits. Diffusely weak SKIN: No rashes. Assessment: Acute urinary tract infection, present on admission with sepsis Hypokalemia, improved Lactic acidosis, improved secondary to above Constipation, improved patient is having bowel movements and is status post colonoscopy within normal colonoscopy noted Stage III pressure ulcer of the left heel with concerns of left foot cellulitis, present on admission Stage II pressure ulcer of the back, present on admission Urinary retention requiring indwelling Llanes catheter Bilateral hydronephrosis History of paraplegia History of back surgery Obesity with a BMI of 37.8 GI prophylaxis DVT prophylaxis Full code Plan: Patient maintained on antibiotics while awaiting cultures with infectious disease following continued on ceftriaxone. Will discuss further regarding discharge planning. General surgery evaluated for possible debridement of the wound on the back. Per general surgery no plans of intervention continuing with local wound care. Vascular surgery Dr. Canela consulted for possible debridement and recommending deep cultures per ID of the left heel. Patient evaluated by physical therapy noted to have generalized weakness recommending rehab and patient is agreeable. Patient will require insurance authorization which is pending ID recommendations prior to submitting. Encouraged increase activity as tolerated with sitting up in the chair more often Follow-up on repeat labs Replace electrolytes per protocol Due to multiple complex medical issues, overall prognosis is guarded The impression and plan of care has been dictated by Nahomy Washington, Nurse Practitioner as directed. Dr. Emile MD I have performed a history and examination and MDM of this patient, discussed the same with the dictator, and agree with the dictator's assessment and plan as written ,documented as a scribe. Based on total visit time, I have performed more than 50% of the visit. Objective - Vital Signs Vital signs: Vital Signs Temp 97.8 F 03/27/24 00:46 Pulse 63 03/27/24 00:46 Resp 18 03/27/24 00:46 BP 145/83 03/27/24 00:46 Pulse Ox 95 03/27/24 00:46 FiO2 Intake & Output 03/26/24 03/26/24 03/27/24 06:59 18:59 06:59 Intake Total 900 Output Total 1325 700 Balance -425 -700 Intake: Intake, IV Titration 900 Amount Sodium Chloride 0.9% 1, 900 000 ml @ 75 mls/hr IV . [id number] [facility] Rx#:[id number] Output: Urine 1325 700 Other: Voiding Method Indwelling Catheter Indwelling Catheter Indwelling Catheter - Labs CBC & Chem 7: 03/26/24 04:39 03/26/24 04:39 Labs: Abnormal Lab Results - Last 24 Hours (Table) 03/26/24 03/26/24 Range/Units 04:39 04:39 WBC 10.07 H (4.50-10.00) X 10*3/uL Hgb 10.8 L (12.0-15.0) g/dL Hct 35.4 L (37.2-46.3) % MCH 24.5 L (27.0-32.0) pg MCHC 30.5 L (32.0-37.0) g/dL RDW 20.3 H (11.5-14.5) % Plt Count 607 H (140-440) X 10*3/uL Immature Gran # 0.06 H (0.00-0.04) X 10*3/uL Monocytes # 1.36 H (0.20-1.00) X 10*3/uL Eosinophils # 0.55 H (0.04-0.35) X 10*3/uL BUN <3.5 L (9.0-27.0) mg/dL Creatinine 0.3 L (0.6-1.5) mg/dL BUN/Creatinine Ratio <11.67 L (12.00-20.00) Ratio Calcium 7.8 L (8.7-10.3) mg/dL Microbiology - Last 24 Hours (Table) 03/23/24 16:54 Blood Culture - Preliminary Blood 03/24/24 05:53 Blood Culture - Preliminary Blood
[2024-03-27 10:13] LABS: Basophils # (A) 0.06 X 10*3/uL (0.00-0.10); Basophils % (A) 0.5 %; Eosinophils # (A) 0.37 X 10*3/uL (0.04-0.35); Eosinophils % (A) 3.4 %; HCT 43.3 % (37.2-46.3); HGB 12.9 g/dL (12.0-15.0); Lymphocytes # (A) 3.15 X 10*3/uL (0.90-5.00); Lymphocytes % (A) 28.7 %; MCH 24.1 pg (27.0-32.0); MCHC 29.8 g/dL (32.0-37.0); MCV 80.8 FL (80.0-97.0); Mean Platelet Volume 9.8 FL (9.5-12.2); Monocytes # (A) 1.14 X 10*3/uL (0.20-1.00); Monocytes % (A) 10.4 %; NRBC Per 100 WBC 0 X 10*3/uL (0.00-0.01); Neutrophils # (A) 6.21 X 10*3/uL (1.80-7.70); Neutrophils % (A) 56.5 %; Platelet Count 579 X 10*3/uL (140-440); RBC 5.36 X 10*6/uL (4.10-5.20); RDW 20.6 % (11.5-14.5); WBC 10.99 X 10*3/uL (4.50-10.00)
[2024-03-27 10:29] LABS: BUN/Creat Ratio <8.75 Ratio (12.00-20.00); Blood Urea Nitrogen <3.5 mg/dL (9.0-27.0); Calcium 8.3 mg/dL (8.7-10.3); Carbon Dioxide 26.2 mmol/L (21.6-31.8); Chloride 109 mmol/L (96-109); Glucose 114 mg/dL (70-110); Potassium 3.3 mmol/L (3.5-5.5); Sodium 144 mmol/L (135-145)
--- NOTE | 2024-03-27 12:10 | P.PN ---
Subjective Progress Note Date: 03/27/24 Principal diagnosis: Reason for follow-up is UTI leukocytosis and pressure ulcer Patient is a 63-year-old female with a past medical history significant for chronic back pain status post back surgery resulting in paraplegic, depression chronic lower extremity wounds and nonalcoholic cirrhosis lung cancer also had splenectomy presenting to the hospital with abdominal pain, patient be diagnosed with constipation also have a positive BM bladder distention from retention positive UA concerning for UTI. Patient has been evaluated by vascular surgery status post bedside surgical debridement of the left heel cultures obtained On today's evaluation that is 03/27/2024,the patient denies any fever or any chills, patient is breathing comfortably on 2 L via oxygen, the patient denies chest pain shortness of breath and no significant cough, patient denies abdominal pain, no nausea vomiting or diarrhea. Denies any worsening pain to the left heel area. Patient white count is 10.9 and creatinine 0.4 repeat her local cultures currently pending Objective - Vital Signs Vital signs: Vital Signs Temp 98.4 F 03/27/24 07:20 Pulse 66 03/27/24 07:20 Resp 19 03/27/24 07:20 BP 137/84 03/27/24 07:20 Pulse Ox 95 03/27/24 08:48 FiO2 Intake & Output 03/26/24 03/27/24 03/27/24 18:59 06:59 18:59 Intake Total 540 Output Total 700 2200 Balance -700 -1660 Intake: Oral 540 Output: Urine 700 2200 Other: Voiding Method Indwelling Catheter Indwelling Catheter Indwelling Catheter - Exam GENERAL DESCRIPTION: An elderly female lying in bed in no distress RESPIRATORY SYSTEM: Unlabored breathing , decreased breath sounds at bases HEART: S1 S2 regular rate and rhythm , ABDOMEN: Soft , no tenderness EXTREMITIES: Patient left heel wound is currently dressed - Labs CBC & Chem 7: 03/27/24 07:30 03/27/24 08:01 Labs: Abnormal Lab Results - Last 24 Hours (Table) 03/27/24 03/27/24 Range/Units 07:30 08:01 WBC 10.99 H (4.50-10.00) X 10*3/uL RBC 5.36 H (4.10-5.20) X 10*6/uL MCH 24.1 L (27.0-32.0) pg MCHC 29.8 L (32.0-37.0) g/dL RDW 20.6 H (11.5-14.5) % Plt Count 579 H (140-440) X 10*3/uL Immature Gran # 0.06 H (0.00-0.04) X 10*3/uL Monocytes # 1.14 H (0.20-1.00) X 10*3/uL Eosinophils # 0.37 H (0.04-0.35) X 10*3/uL Potassium 3.3 L (3.5-5.5) mmol/L BUN <3.5 L (9.0-27.0) mg/dL Creatinine 0.4 L (0.6-1.5) mg/dL BUN/Creatinine Ratio <8.75 L (12.00-20.00) Ratio Glucose 114 H (70-110) mg/dL Calcium 8.3 L (8.7-10.3) mg/dL Microbiology - Last 24 Hours (Table) 03/26/24 15:15 Gram Stain - Preliminary Heel - Left 03/23/24 16:54 Blood Culture - Preliminary Blood 03/24/24 05:53 Blood Culture - Preliminary Blood Assessment and Plan (1) Leukocytosis Current Visit: Yes Status: Acute Code(s): D72.829 - ELEVATED WHITE BLOOD CELL COUNT, UNSPECIFIED SNOMED Code(s): 821805301 (2) UTI (urinary tract infection) Current Visit: Yes Status: Acute Code(s): N39.0 - URINARY TRACT INFECTION, SITE NOT SPECIFIED SNOMED Code(s): 33481780 (3) Decubitus ulcer of left heel, stage 3 Current Visit: Yes Status: Acute Code(s): L89.623 - PRESSURE ULCER OF LEFT HEEL, STAGE 3 SNOMED Code(s): 83128451704351 (4) Stage II pressure ulcer of back Current Visit: Yes Status: Acute Code(s): L89.102 - PRESSURE ULCER OF UNSPECIFIED PART OF BACK, STAGE 2 SNOMED Code(s): 03023104599660168 (5) Positive blood culture Current Visit: Yes Status: Acute Code(s): R78.81 - BACTEREMIA SNOMED Code(s): 826874228 Plan: 1patient presented to hospital with abdominal pain and this patient has been diagnosed with bladder distention with mild hydronephrosis possible incomplete emptying of the bladder did have a positive UA with burning urine concerning for symptomatic UTI likely from to the gram-negative pathogen also with evidence of constipation General Surgery following the patient 2-patient did have a pressure ulcer to the left heel area with some slough t issue culture obtained which are so far negative 3blood culture positive with staph epi possible skin contamination versus related to the heel ulcer, blood culture has been repeated which has been ne gative so far 4patient is status post debridement of the left heel wound, local wound care to the left heel with Santyl followed by moist dressing and keep the area of pressure we will wait for the culture to finalize determine discharge antibiotics for now continue with Rocephin Dictation was produced using [employer] dictation software. please excuse any grammatical, word or spelling errors.
--- NOTE | 2024-03-27 12:31 | P.PN ---
Subjective Progress Note Date: 03/27/24 SURGICAL PROGRESS NOTE CHIEF COMPLAINT: Abdominal pain HISTORY OF PRESENT ILLNESS: Patient had normal colonoscopy on 03/25/24. Constipation has improved. Patient reports having bowel movements yesterday. Patient does complain of chronic back pain that wraps around to her abdomen. Afebrile. WBC 10.9 Hgb 12.9 platelets 579 potassium 3.3 PHYSICAL EXAM: VITAL SIGNS: Reviewed. GENERAL: Well-developed in no acute distress. ABDOMEN: Soft. Nondistended. Nontender. SKIN: Sacral ulcer with slough ASSESSMENT: 1. Constipation. resolved 2. Urinary retention status post Llanes catheter placement 3. Hypokalemia corrected 4. UTI and left ankle wound 5. Anemia 7. Sacral ulcer with slough PLAN: -No plans for surgical debridement of sacral ulcer -Constipation improved. Recommend patient continues a good bowel regimen at discharge. -Continue lactulose -Replace potassium Physician Tube Lancer note has been reviewed by physician. Signing provider agrees with the documented findings, assessment, and plan of care. Objective - Vital Signs Vital signs: Vital Signs Temp 98.4 F 03/27/24 07:20 Pulse 66 03/27/24 07:20 Resp 19 03/27/24 07:20 BP 137/84 03/27/24 07:20 Pulse Ox 95 03/27/24 08:48 FiO2 Intake & Output 03/26/24 03/27/24 03/27/24 18:59 06:59 18:59 Intake Total 540 Output Total 700 2200 Balance -700 -1660 Intake: Oral 540 Output: Urine 700 2200 Other: Voiding Method Indwelling Catheter Indwelling Catheter Indwelling Catheter - Labs CBC & Chem 7: 03/27/24 07:30 03/27/24 08:01 Labs: Abnormal Lab Results - Last 24 Hours (Table) 03/27/24 03/27/24 Range/Units 07:30 08:01 WBC 10.99 H (4.50-10.00) X 10*3/uL RBC 5.36 H (4.10-5.20) X 10*6/uL MCH 24.1 L (27.0-32.0) pg MCHC 29.8 L (32.0-37.0) g/dL RDW 20.6 H (11.5-14.5) % Plt Count 579 H (140-440) X 10*3/uL Immature Gran # 0.06 H (0.00-0.04) X 10*3/uL Monocytes # 1.14 H (0.20-1.00) X 10*3/uL Eosinophils # 0.37 H (0.04-0.35) X 10*3/uL Potassium 3.3 L (3.5-5.5) mmol/L BUN <3.5 L (9.0-27.0) mg/dL Creatinine 0.4 L (0.6-1.5) mg/dL BUN/Creatinine Ratio <8.75 L (12.00-20.00) Ratio Glucose 114 H (70-110) mg/dL Calcium 8.3 L (8.7-10.3) mg/dL Microbiology - Last 24 Hours (Table) 03/26/24 15:15 Gram Stain - Preliminary Heel - Left 03/23/24 16:54 Blood Culture - Preliminary Blood 03/24/24 05:53 Blood Culture - Preliminary Blood
[2024-03-27] MEDS: POTASSIUM CHLORIDE ER 20 MEQ TAB.ER PO STA (12:57)
[2024-03-28 09:10] LABS: BUN/Creat Ratio 10.75 Ratio (12.00-20.00); Blood Urea Nitrogen 4.3 mg/dL (9.0-27.0); Calcium 7.9 mg/dL (8.7-10.3); Carbon Dioxide 23.3 mmol/L (21.6-31.8); Chloride 106 mmol/L (96-109); Glucose 106 mg/dL (70-110); Potassium 3.1 mmol/L (3.5-5.5); Sodium 139 mmol/L (135-145)
[2024-03-28] MEDS ORDERED: Potassium Replacement Protocol 1 EACH MISC MISCELLANE PRN (09:24)
--- NOTE | 2024-03-28 09:30 | P.PN ---
Subjective Progress Note Date: 03/27/24 63-year-old lady with past medical history significant for paraplegia, back surgery, chronic lower extremity wounds, splenectomy presents the ER for abdominal pain. Patient stated she was all right 3 days back when she started having abdominal pain. Patient abdominal pain was generalized, cramping in n ature, no radiating or relieving factor associated abdominal pain. Patient was complaining of nausea but no vomiting. Patient last bowel movement was 3 days ago. There was no complaint of fever or chills. There was no complaint of chest pain or shortness of breath. Patient also had pain in her left ankle with swelling, states it was secondary to pressure injury from laying in the bed. Denies any trauma. Patient is bedridden. Because of this abdominal pain, patient brought to the ER Initial lab work done in the ER showed WBC 19.3, hemoglobin 13.8, platelet count 751, sodium 130, potassium 2.5, lactate 2.1, UA positive for leukocyte Estrace, urine WBC 182, COVID-19 not detected, influenza A and influenza B negative, RSV is negative CT abdomen pelvis done showed distended urinary bladder with mild bilateral hydronephrosis no obstructing calculus visualized EKG done in the ER showed heart rate of 86 , no ST segment elevation or depression seen, no T-wave inversions seen. X-ray ankle done showed no evidence of acute fracture Patient admitted to internal medicine service 24-hour interval change 03/23/2024 Patient is seen and evaluated in room at bedside; potassium is elevated at 5.6; currently on potassium replacement protocol Vital signs are reviewed and remained stable Lab review shows WBC 15.9, hemoglobin of 12.4 and platelet count of 434, sodium 139, potassium 5.3, BUNs/creatinine of 11/0.42 patient presented to hospital with abdominal pain and this patient has been diagnosed with bladder distention with mild hydronephrosis possible incomplete emptying of the bladder did have a positive UA with burning urine concerning for symptomatic UTI likely from to the gram-negative pathogen also with evidence of constipation General Surgery following the patient -patient did have a pressure ulcer to the left heel area with some slough tissue culture obtained results will be followed blood culture positive with staph epi possible skin contamination versus related to the heel ulcer but culture will be repeated document clearance local wound care to the left heel with Medihoney followed by moist dressing and keep the area of pressure and local wound care to the back wound with dry Aquacel dressing change q. 48-hour -Patient is currently on IV Rocephin and vancomycin to continue while waiting for the workup to be completed 03/24/2024 --Patient is afebrile patient is currently on 2 L removed and denies having any shortness of breath, the patient denies any chest pain or cough, the patient denies any nausea vomiting did not have any abdominal pain, no new symptoms patient white count is down to 11.72, creatinine 0.39 blood urine culture has been negative so far patient admitted with bladder distention with mild hydronephrosis possible incomplete emptying of the bladder did have a positive UA with burning urine concerning for symptomatic UTI likely from to the gram-negative pathogen also with evidence of constipation General Surgery following the patient -patient did have a pressure ulcer to the left heel area with some slough tissue culture obtained which are so far negative blood culture positive with staph epi possible skin contamination versus related to the heel ulcer, blood culture has been repeated patient white count is trending down to 11,000, patient to continue with Rocephin while inpatient and monitor clinical course closely 03/25/2024 Patient is seen in follow-up today maintained on antibiotics with infectious disease following along with general surgery as patient is scheduled to undergo EGD/colonoscopy today. Patient is currently n.p.o. Patient is continued on antibiotics for urinary tract infection and also continue local wound care for the left foot heel wound. Patient will be going to ECF on discharge and will discuss with case management regarding discharge planning. Patient is currently afebrile with no reports of chest pain or shortness of breath. Patient was currently wearing oxygen although not on and maintaining oxygen saturations. 03/26/2024 Patient is seen in follow-up today maintained on antibiotics and patient is status post colonoscopy which was normal and diet has been advanced. Patient continues on antibiotics with infectious disease following and will reconsult vascular surgery Dr. Canela for further evaluation of the left heel and pos sible debridement. Patient will require cultures to be finalized to determine discharge antibiotics. Patient with significant weakness would benefit from ECF and case management following working on referrals. Patient is afebrile with no reports of chest pain. Patient continued on 2 L of oxygen and reports she does not wear it at home. Wean FiO2 as tolerated. 03/27/2024 Patient is seen in follow-up this morning being followed by general surgery along with infectious disease continued on antibiotics while awaiting cultures to finalize. Patient did also undergo debridement with Dr. Canela vascular surgery of the left heel and awaiting cultures at this time as well preliminary showing gram-negative bacilli along with presumptive MRSA and will await finalized cultures to determine discharge antibiotics. Patient reports would like to go home although if requiring IV antibiotics may need ECF and will discuss with case management once cultures are finalized. Patient continues with indwelling Llanes catheter and will trial void and monitor for any retention. Review of systems: Constitutional: No reports of fatigue, fever, or chills Cardiovascular: No reports of chest pain or palpitations Respiratory: No reports of shortness of breath or cough GI: No reports of nausea, vomiting, or diarrhea : No reports of dysuria or retention Neurovascular: reports of generalized weakness All medications have been reviewed Physical exam: GENERAL: The patient is alert and oriented x3, not in any acute distress. Well developed, elderly appearing, obese HEENT: Pupils are round and equally reacting to light. EOMI. No scleral icterus. No conjunctival pallor. Normocephalic, atraumatic. No pharyngeal erythema. No thyromegaly. CARDIOVASCULAR: S1 and S2 present. No murmurs, rubs, or gallops. PULMONARY: Diminished breath sounds bilaterally otherwise chest is clear to auscultation, no wheezing or crackles. ABDOMEN: Soft, obese nontender, nondistended, normoactive bowel sounds. No p alpable organomegaly. MUSCULOSKELETAL: No joint swelling or deformity. EXTREMITIES: No cyanosis, clubbing, or pedal edema. NEUROLOGICAL: Gross neurological examination did not reveal any focal deficits. Diffusely weak SKIN: No rashes. Assessment: Acute urinary tract infection, present on admission with sepsis Hypokalemia, improved Lactic acidosis, improved secondary to above Constipation, improved patient is having bowel movements and is status post colonoscopy within normal colonoscopy noted Stage III pressure ulcer of the left heel with concerns of left foot cellulitis, present on admission, status postdebridement on 03/26/2024 with vascular surgery, cultures pending Stage II pressure ulcer of the back, present on admission Urinary retention requiring indwelling Llanes catheter Bilateral hydronephrosis History of paraplegia History of back surgery Obesity with a BMI of 37.8 GI prophylaxis DVT prophylaxis Full code Plan: Patient maintained on antibiotics while awaiting cultures with infectious disease following continued on ceftriaxone. Will discuss further regarding discharge planning. General surgery evaluated for possible debridement of the wound on the buttock area. Per general surgery no plans of intervention continuing with local wound care. Vascular surgery Dr. Canela debrided the left heel and pending deep cultures, preliminary showing gram-negative and pre sumptive MRSA Patient evaluated by physical therapy noted to have generalized weakness recommending rehab and patient is agreeable. Patient will require insurance authorization which is pending ID recommendations prior to submitting. Patient would like to go home but if requiring IV antibiotics may need to go to [facility]. Encouraged increase activity as tolerated with sitting up in the chair more oft en Follow-up on repeat labs Replace electrolytes per protocol Due to multiple complex medical issues, overall prognosis is guarded The impression and plan of care has been dictated by Nahomy Washington, Nurse Practitioner as directed. Dr. Emile MD I have performed a history and examination and MDM of this patient, discussed the same with the dictator, and agree with the dictator's assessment and plan as written ,documented as a scribe. Based on total visit time, I have performed more than 50% of the visit. Objective - Vital Signs Vital signs: Vital Signs Temp 98.4 F 03/27/24 07:20 Pulse 66 03/27/24 07:20 Resp 19 03/27/24 07:20 BP 137/84 03/27/24 07:20 Pulse Ox 95 03/27/24 08:48 FiO2 Intake & Output 03/26/24 03/27/24 03/27/24 18:59 06:59 18:59 Intake Total 540 Output Total 700 2200 Balance -700 -1660 Intake: Oral 540 Output: Urine 700 2200 Other: Voiding Method Indwelling Catheter Indwelling Catheter - Labs CBC & Chem 7: 03/27/24 07:30 03/28/24 04:16 Labs: Abnormal Lab Results - Last 24 Hours (Table) 03/26/24 Range/Units 04:39 BUN <3.5 L (9.0-27.0) mg/dL Creatinine 0.3 L (0.6-1.5) mg/dL BUN/Creatinine Ratio <11.67 L (12.00-20.00) Ratio Calcium 7.8 L (8.7-10.3) mg/dL Microbiology - Last 24 Hours (Table) 03/26/24 15:15 Gram Stain - Preliminary Heel - Left 03/23/24 16:54 Blood Culture - Preliminary Blood 03/24/24 05:53 Blood Culture - Preliminary Blood
[2024-03-28] MEDS ORDERED: VANCOMYCIN IV PER PHARMACY 1 EACH MISC MISCELLANE PRN (10:24)
[2024-03-28] MEDS: POTASSIUM CHLORIDE ER 20 MEQ TAB.ER PO SCH (12:05)
--- NOTE | 2024-03-28 12:26 | P.PN ---
Subjective Progress Note Date: 03/28/24 SURGICAL PROGRESS NOTE CHIEF COMPLAINT: Abdominal pain HISTORY OF PRESENT ILLNESS: Patient had normal colonoscopy on 03/25/24. Patient complains of diffuse abdominal pain and back pain. She ate all of her breakfast per nursing staff. She did not have a bowel movement yesterday. Denies any nausea or vomiting. k 3.1 being replaced PHYSICAL EXAM: VITAL SIGNS: Reviewed. GENERAL: Well-developed in no acute distress. ABDOMEN: Soft. Nondistended. Diffuse tenderness SKIN: Sacral ulcer with slough ASSESSMENT: 1. Constipation. resolved 2. Urinary retention status post Llanes catheter placement 3. Hypokalemia corrected 4. UTI and left ankle wound 5. Anemia 7. Sacral ulcer with slough PLAN: -No plans for surgical debridement of sacral ulcer -Recommend patient continues a good bowel regimen at discharge. -check abdominal XRAY for abdominal pain Physician Cardiac Cath Lab Radiology Technologist note has been reviewed by physician. Signing provider agrees with the documented findings, assessment, and plan of care. Objective - Vital Signs Vital signs: Vital Signs Temp 97.7 F 03/28/24 07:10 Pulse 66 03/28/24 07:10 Resp 17 03/28/24 07:10 BP 153/89 03/28/24 07:10 Pulse Ox 96 03/28/24 07:10 FiO2 Intake & Output 03/27/24 03/28/24 03/28/24 18:59 06:59 18:59 Intake Total 740 Output Total 2525 950 Balance -2525 -210 Intake: Oral 740 Output: Urine 2525 950 Other: Voiding Method Indwelling Catheter Indwelling Catheter Indwelling Catheter - Labs CBC & Chem 7: 03/27/24 07:30 03/28/24 04:16 Labs: Abnormal Lab Results - Last 24 Hours (Table) 03/28/24 Range/Units 04:16 Potassium 3.1 L (3.5-5.5) mmol/L BUN 4.3 L (9.0-27.0) mg/dL Creatinine 0.4 L (0.6-1.5) mg/dL BUN/Creatinine Ratio 10.75 L (12.00-20.00) Ratio Calcium 7.9 L (8.7-10.3) mg/dL Microbiology - Last 24 Hours (Table) 03/26/24 15:15 Gram Stain - Preliminary Heel - Left Tissue Culture - Preliminary Gram Neg Bacilli Presumptive MRSA 03/24/24 05:53 Blood Culture - Preliminary Blood
--- NOTE | 2024-03-28 12:55 | P.PN ---
Subjective Progress Note Date: 03/28/24 Principal diagnosis: Reason for follow-up is UTI leukocytosis and pressure ulcer Patient is a 63-year-old female with a past medical history significant for chronic back pain status post back surgery resulting in paraplegic, depression chronic lower extremity wounds and nonalcoholic cirrhosis lung cancer also had splenectomy presenting to the hospital with abdominal pain, patient be diagnosed with constipation also have a positive BM bladder distention from retention positive UA concerning for UTI. Patient has been evaluated by vascular surgery status post bedside surgical debridement of the left heel cultures obtained On today's evaluation that is 03/28/2024,the patient remains to be afebrile, patient is on r 2 L nasal cannula supplemental oxygen and denies any shortness of breath no chest pain or significant cough.Patient denies having any nausea or vomiting, no abdominal pain and no diarrhea has been complaining of pain mostly to the lower back area from the pressure ulcer. Patient did have a creatinine 0.4 local culture now growing MRSA and gram-neg ative bacilli Objective - Vital Signs Vital signs: Vital Signs Temp 97.7 F 03/28/24 07:10 Pulse 66 03/28/24 07:10 Resp 17 03/28/24 07:10 BP 153/89 03/28/24 07:10 Pulse Ox 96 03/28/24 07:10 FiO2 Intake & Output 03/27/24 03/28/24 03/28/24 18:59 06:59 18:59 Intake Total 740 Output Total 2525 950 Balance -2525 -210 Intake: Oral 740 Output: Urine 2525 950 Other: Voiding Method Indwelling Catheter Indwelling Catheter - Exam GENERAL DESCRIPTION: An elderly female lying in bed in no distress RESPIRATORY SYSTEM: Unlabored breathing , decreased breath sounds at bases HEART: S1 S2 regular rate and rhythm , ABDOMEN: Soft , no tenderness EXTREMITIES: Patient left heel wound is currently dressed - Labs CBC & Chem 7: 03/27/24 07:30 03/28/24 04:16 Labs: Abnormal Lab Results - Last 24 Hours (Table) 03/27/24 03/28/24 Range/Units 08:01 04:16 Potassium 3.3 L 3.1 L (3.5-5.5) mmol/L BUN <3.5 L 4.3 L (9.0-27.0) mg/dL Creatinine 0.4 L 0.4 L (0.6-1.5) mg/dL BUN/Creatinine Ratio <8.75 L 10.75 L (12.00-20.00) Ratio Glucose 114 H (70-110) mg/dL Calcium 8.3 L 7.9 L (8.7-10.3) mg/dL Microbiology - Last 24 Hours (Table) 03/26/24 15:15 Gram Stain - Preliminary Heel - Left Tissue Culture - Preliminary Gram Neg Bacilli Presumptive MRSA 03/24/24 05:53 Blood Culture - Preliminary Blood Assessment and Plan (1) Leukocytosis Current Visit: Yes Status: Acute Code(s): D72.829 - ELEVATED WHITE BLOOD CELL COUNT, UNSPECIFIED SNOMED Code(s): 148290066 (2) UTI (urinary tract infection) Current Visit: Yes Status: Acute Code(s): N39.0 - URINARY TRACT INFECTION, SITE NOT SPECIFIED SNOMED Code(s): 39509487 (3) Decubitus ulcer of left heel, stage 3 Current Visit: Yes Status: Acute Code(s): L89.623 - PRESSURE ULCER OF LEFT HEEL, STAGE 3 SNOMED Code(s): 74339880306835 (4) Stage II pressure ulcer of back Current Visit: Yes Status: Acute Code(s): L89.102 - PRESSURE ULCER OF UNSPECIFIED PART OF BACK, STAGE 2 SNOMED Code(s): 81390050977396975 (5) Positive blood culture Current Visit: Yes Status: Acute Code(s): R78.81 - BACTEREMIA SNOMED Code(s): 305459671 Plan: 1patient presented to hospital with abdominal pain and this patient has been diagnosed with bladder distention with mild hydronephrosis possible incomplete emptying of the bladder did have a positive UA with burning urine concerning for symptomatic UTI likely from to the gram-negative pathogen also with evidence of constipation General Surgery following the patient 2-patient did have a pressure ulcer to the left heel area with some slough tissue culture obtained which are so far negative 3blood culture positive with staph epi possible skin contamination versus related to the heel ulcer, blood culture has been repeated which has been n egative so far 4patient is status post debridement of the left heel wound, with a culture now growing MRSA and gram-negative bacilli we will repeat a bone scan to make sure no evidence of any osteomyelitis 5patient to continue with Rocephin we will add vancomycin pharmacy to dose to cover for MRSA Dictation was produced using [employer] dictation software. please excuse any grammatical, word or spelling errors. Time with Patient: Less than 30
[2024-03-28] MEDS: VANCOMYCIN 1,750 MG in SODIUM CHLORIDE 0.9% 500 ML 500 ML IVPB SCH (13:30)
--- NOTE | 2024-03-28 13:34 | XR ---
EXAMINATION TYPE: XR abdomen 2V DATE OF EXAM: 03/28/2024 1:21 PM COMPARISON: None. CLINICAL INDICATION: Female, 63 years old with history of abdominal pain, TECHNIQUE: XR abdomen 2V view(s) obtained. FINDINGS: There is a normal bowel gas pattern. No free air is evident. Psoas margins are normal. No organomegaly is present. Cholecystectomy clips in the right upper quadrant. Previous right renal s tones not identified. There is a small right pleural effusion. Fixation pedicle screws and rods are within the thoracic spi ne in the lower lumbar spine IMPRESSION: 1. Nonspecific abdomen. 2. Right pleural effusion [facility], , 03/28/2024 1:31 PM
[2024-03-29 04:31] LABS: African American GFR (CKD) >90 (>60 ml/min/1.73 sqM); Non-African American GFR(CKD) >90 (>60 ml/min/1.73 sqM)
[2024-03-29 06:36] LABS: Anion Gap 7 mmol/L; Blood Urea Nitrogen 3 mg/dL (7-17); Calcium 8.7 mg/dL (8.4-10.2); Carbon Dioxide 26 mmol/L (22-30); Chloride 106 mmol/L (98-107); Glucose 99 mg/dL (74-99); Magnesium 1.8 mg/dL (1.6-2.3); Potassium 3.5 mmol/L (3.5-5.1); Sodium 139 mmol/L (137-145)
[2024-03-29 08:33] LABS: Basophils # (A) 0.08 X 10*3/uL (0.00-0.10); Basophils % (A) 0.7 %; Eosinophils # (A) 0.54 X 10*3/uL (0.04-0.35); Eosinophils % (A) 4.9 %; HCT 39.1 % (37.2-46.3); HGB 11.8 g/dL (12.0-15.0); Lymphocytes # (A) 3.36 X 10*3/uL (0.90-5.00); Lymphocytes % (A) 30.2 %; MCH 24.6 pg (27.0-32.0); MCHC 30.2 g/dL (32.0-37.0); MCV 81.6 FL (80.0-97.0); Mean Platelet Volume 9.4 FL (9.5-12.2); Monocytes # (A) 1.53 X 10*3/uL (0.20-1.00); Monocytes % (A) 13.7 %; NRBC Per 100 WBC 0 X 10*3/uL (0.00-0.01); Neutrophils # (A) 5.53 X 10*3/uL (1.80-7.70); Neutrophils % (A) 49.7 %; Platelet Count 583 X 10*3/uL (140-440); RBC 4.79 X 10*6/uL (4.10-5.20); RDW 20.5 % (11.5-14.5); WBC 11.13 X 10*3/uL (4.50-10.00)
--- NOTE | 2024-03-29 10:31 | P.PN ---
Subjective Progress Note Date: 03/28/24 63-year-old lady with past medical history significant for paraplegia, back surgery, chronic lower extremity wounds, splenectomy presents the ER for abdominal pain. Patient stated she was all right 3 days back when she started having abdominal pain. Patient abdominal pain was generalized, cramping in n ature, no radiating or relieving factor associated abdominal pain. Patient was complaining of nausea but no vomiting. Patient last bowel movement was 3 days ago. There was no complaint of fever or chills. There was no complaint of chest pain or shortness of breath. Patient also had pain in her left ankle with swelling, states it was secondary to pressure injury from laying in the bed. Denies any trauma. Patient is bedridden. Because of this abdominal pain, patient brought to the ER Initial lab work done in the ER showed WBC 19.3, hemoglobin 13.8, platelet count 751, sodium 130, potassium 2.5, lactate 2.1, UA positive for leukocyte Estrace, urine WBC 182, COVID-19 not detected, influenza A and influenza B negative, RSV is negative CT abdomen pelvis done showed distended urinary bladder with mild bilateral hydronephrosis no obstructing calculus visualized EKG done in the ER showed heart rate of 86 , no ST segment elevation or depression seen, no T-wave inversions seen. X-ray ankle done showed no evidence of acute fracture Patient admitted to internal medicine service 24-hour interval change 03/23/2024 Patient is seen and evaluated in room at bedside; potassium is elevated at 5.6; currently on potassium replacement protocol Vital signs are reviewed and remained stable Lab review shows WBC 15.9, hemoglobin of 12.4 and platelet count of 434, sodium 139, potassium 5.3, BUNs/creatinine of 11/0.42 patient presented to hospital with abdominal pain and this patient has been diagnosed with bladder distention with mild hydronephrosis possible incomplete emptying of the bladder did have a positive UA with burning urine concerning for symptomatic UTI likely from to the gram-negative pathogen also with evidence of constipation General Surgery following the patient -patient did have a pressure ulcer to the left heel area with some slough tissue culture obtained results will be followed blood culture positive with staph epi possible skin contamination versus related to the heel ulcer but culture will be repeated document clearance local wound care to the left heel with Medihoney followed by moist dressing and keep the area of pressure and local wound care to the back wound with dry Aquacel dressing change q. 48-hour -Patient is currently on IV Rocephin and vancomycin to continue while waiting for the workup to be completed 03/24/2024 --Patient is afebrile patient is currently on 2 L removed and denies having any shortness of breath, the patient denies any chest pain or cough, the patient denies any nausea vomiting did not have any abdominal pain, no new symptoms patient white count is down to 11.72, creatinine 0.39 blood urine culture has been negative so far patient admitted with bladder distention with mild hydronephrosis possible incomplete emptying of the bladder did have a positive UA with burning urine concerning for symptomatic UTI likely from to the gram-negative pathogen also with evidence of constipation General Surgery following the patient -patient did have a pressure ulcer to the left heel area with some slough tissue culture obtained which are so far negative blood culture positive with staph epi possible skin contamination versus related to the heel ulcer, blood culture has been repeated patient white count is trending down to 11,000, patient to continue with Rocephin while inpatient and monitor clinical course closely 03/25/2024 Patient is seen in follow-up today maintained on antibiotics with infectious disease following along with general surgery as patient is scheduled to undergo EGD/colonoscopy today. Patient is currently n.p.o. Patient is continued on antibiotics for urinary tract infection and also continue local wound care for the left foot heel wound. Patient will be going to ECF on discharge and will discuss with case management regarding discharge planning. Patient is currently afebrile with no reports of chest pain or shortness of breath. Patient was currently wearing oxygen although not on and maintaining oxygen saturations. 03/26/2024 Patient is seen in follow-up today maintained on antibiotics and patient is status post colonoscopy which was normal and diet has been advanced. Patient continues on antibiotics with infectious disease following and will reconsult vascular surgery Dr. Canela for further evaluation of the left heel and pos sible debridement. Patient will require cultures to be finalized to determine discharge antibiotics. Patient with significant weakness would benefit from ECF and case management following working on referrals. Patient is afebrile with no reports of chest pain. Patient continued on 2 L of oxygen and reports she does not wear it at home. Wean FiO2 as tolerated. 03/27/2024 Patient is seen in follow-up this morning being followed by general surgery along with infectious disease continued on antibiotics while awaiting cultures to finalize. Patient did also undergo debridement with Dr. Canela vascular surgery of the left heel and awaiting cultures at this time as well preliminary showing gram-negative bacilli along with presumptive MRSA and will await finalized cultures to determine discharge antibiotics. Patient reports would like to go home although if requiring IV antibiotics may need ECF and will discuss with case management once cultures are finalized. Patient continues with indwelling Llanes catheter and will trial void and monitor for any retention. 03/28/2024 Patient is seen in follow-up today awaiting cultures from left heel debridement showing gram-negative bacilli and presumptive MRSA. Patient being followed by infectious disease maintained on antibiotics and will likely require IV antibiotics. Plan will be to go to ECF for continued antibiotic therapy pending insurance authorization. Currently awaiting finalized cultures to determine appropriate discharge antibiotics. Patient will require a PICC line likely and an order has been placed by infectious disease. Bone scan ordered and will be performed in AM. White count is trending down although continues to be mildly elevated and patient remains afebrile. Llanes catheter was discontinued and patient is voiding. Review of systems: Constitutional: No reports of fatigue, fever, or chills Cardiovascular: No reports of chest pain or palpitations Respiratory: No reports of shortness of breath or cough GI: No reports of nausea, vomiting, or diarrhea : No reports of dysuria or retention Neurovascular: reports of generalized weakness All medications have been reviewed Physical exam: GENERAL: The patient is alert and oriented x3, not in any acute distress. Well developed, elderly appearing, obese HEENT: Pupils are round and equally reacting to light. EOMI. No scleral icterus. No conjunctival pallor. Normocephalic, atraumatic. No pharyngeal erythema. No thyromegaly. CARDIOVASCULAR: S1 and S2 present. No murmurs, rubs, or gallops. PULMONARY: Diminished breath sounds bilaterally otherwise chest is clear to auscultation, no wheezing or crackles. ABDOMEN: Soft, obese nontender, nondistended, normoactive bowel sounds. No palpable organomegaly. MUSCULOSKELETAL: No joint swelling or deformity. EXTREMITIES: No cyanosis, clubbing, or pedal edema. NEUROLOGICAL: Gross neurological examination did not reveal any focal deficits. Diffusely weak SKIN: No rashes. Assessment: Acute urinary tract infection, present on admission with sepsis Hypokalemia, improved Lactic acidosis, improved secondary to above Constipation, improved patient is having bowel movements and is status post col onoscopy within normal colonoscopy noted Stage III pressure ulcer of the left heel with concerns of left foot cellulitis, present on admission, status postdebridement on 03/26/2024 with vascular surgery, cultures growing MRSA Stage II pressure ulcer of the back, present on admission Urinary retention requiring indwelling Llanes catheter Bilateral hydronephrosis History of paraplegia History of back surgery Obesity with a BMI of 37.8 GI prophylaxis DVT prophylaxis Full code Plan: Patient maintained on antibiotics while awaiting cultures with infectious disease following continued on vancomycin. Culture showing MRSA and will require PICC line on discharge. Bone scan is ordered and pending per ID recommendations Vascular surgery Dr. Canela debrided the left heel and pending deep cultures, preliminary showing gram-negative and presumptive MRSA Patient evaluated by physical therapy noted to have generalized weakness recommending rehab and patient is agreeable. Patient will require insurance authorization which is pending ID recommendations prior to submitting. Patient would like to go home but if requiring IV antibiotics may need to go to F. Continue local wound care per ID and vascular surgery recommendations Llanes catheter was removed and patient is voiding Continue bowel regimen Encouraged increase activity as tolerated with sitting up in the chair more often Follow-up on repeat labs Replace electrolytes per protocol, potassium has been chronically low and will consider adding daily supplementation Due to multiple complex medical issues, overall prognosis is guarded Will need to discuss further with infectious disease regarding discharge planning, PICC line, authorization and follow-up on the bone scan Possible discharge in the next 24 to 48 hours. Case management is following The impression and plan of care has been dictated by Nahomy Washington, Nurse Practitioner as directed. Dr. Emile MD I have performed a history and examination and MDM of this patient, discussed the same with the dictator, and agree with the dictator's assessment and plan as written ,documented as a scribe. Based on total visit time, I have performed more than 50% of the visit. Objective - Vital Signs Vital signs: Vital Signs Temp 98.1 F 03/29/24 02:30 Pulse 53 L 03/29/24 02:30 Resp 16 03/29/24 02:30 BP 138/90 03/29/24 02:30 Pulse Ox 95 03/29/24 02:30 FiO2 Intake & Output 03/28/24 03/28/24 03/29/24 06:59 18:59 06:59 Intake Total 740 200 Output Total 950 114 Balance -210 86 Weight 90.718 kg Intake: Oral 740 200 Output: Urine 950 Post Void Residual 114 Other: Voiding Method Indwelling Catheter Indwelling Catheter # Voids 1 - Labs CBC & Chem 7: 03/29/24 03:54 03/29/24 03:59 Labs: Abnormal Lab Results - Last 24 Hours (Table) 03/28/24 03/29/24 Range/Units 04:16 03:59 Potassium 3.1 L (3.5-5.5) mmol/L BUN 4.3 L (9.0-27.0) mg/dL Creatinine 0.4 L 0.41 L (0.6-1.5) mg/dL BUN/Creatinine Ratio 10.75 L (12.00-20.00) Ratio Calcium 7.9 L (8.7-10.3) mg/dL Microbiology - Last 24 Hours (Table) 03/23/24 16:54 Blood Culture - Final Blood 03/26/24 15:15 Anaerobic Culture - Preliminary Heel - Left 03/26/24 15:15 Gram Stain - Preliminary Heel - Left Tissue Culture - Preliminary Pseudomonas aeruginosa Methicillin resist S. aureus Gram Neg Bacilli
[2024-03-29] MEDS: MEROPENEM 1 GM in SODIUM CHLORIDE 0.9% 100 ML IVPB SCH (12:30)
--- NOTE | 2024-03-29 13:13 | P.PN ---
Subjective Progress Note Date: 03/29/24 SURGICAL PROGRESS NOTE CHIEF COMPLAINT: Abdominal pain HISTORY OF PRESENT ILLNESS: Patient had normal colonoscopy on 03/25/24. Patient reports feeling nausea this morning. No vomiting. Patient had a bone scan completed today. Last bowel movement charted on March 26. Patient does complain of diffuse abdominal pain. Abdominal x-ray from yesterday reports nonspecific abdomen. Normal bowel gas pattern. No free air. Afebrile. WBC 11.13 PHYSICAL EXAM: VITAL SIGNS: Reviewed. GENERAL: Well-developed in no acute distress. ABDOMEN: Soft. Nondistended. Diffuse tenderness ASSESSMENT: 1. Constipation. resolved 2. Urinary retention status post Llanes catheter placement 3. Hypokalemia corrected 4. UTI and left ankle wound 5. Anemia 7. Sacral ulcer with superficial slough. No necrosis. PLAN: -No plans for surgical debridement of sacral ulcer -Continue supportive care -Keep pressure off of the sacral ulcer -Continue to cover with Optifoam dressing -Recommend patient continues a good bowel regimen at discharge. -Will discontinue the lactulose. This medication might contribute to patient's nausea and abdominal discomfort Physician Receiver Stocker note has been reviewed by physician. Signing provider agrees with the documented findings, assessment, and plan of care. Objective - Vital Signs Vital signs: Vital Signs Temp 97.8 F 03/29/24 07:16 Pulse 63 03/29/24 07:16 Resp 20 03/29/24 07:16 BP 121/78 03/29/24 07:16 Pulse Ox 92 L 03/29/24 07:16 FiO2 Intake & Output 03/28/24 03/29/24 03/29/24 18:59 06:59 18:59 Intake Total 200 Output Total 114 Balance 86 Weight 90.718 kg Intake: Oral 200 Output: Post Void Residual 114 Other: Voiding Method Indwelling Catheter Incontinent External Catheter # Voids 1 - Labs CBC & Chem 7: 03/29/24 03:54 03/29/24 03:59 Labs: Abnormal Lab Results - Last 24 Hours (Table) 03/29/24 03/29/24 Range/Units 03:54 03:59 WBC 11.13 H (4.50-10.00) X 10*3/uL Hgb 11.8 L (12.0-15.0) g/dL MCH 24.6 L (27.0-32.0) pg MCHC 30.2 L (32.0-37.0) g/dL RDW 20.5 H (11.5-14.5) % Plt Count 583 H (140-440) X 10*3/uL MPV 9.4 L (9.5-12.2) FL Immature Gran # 0.09 H (0.00-0.04) X 10*3/uL Monocytes # 1.53 H (0.20-1.00) X 10*3/uL Eosinophils # 0.54 H (0.04-0.35) X 10*3/uL BUN 3 L (7-17) mg/dL Creatinine 0.41 L (0.52-1.04) mg/dL Microbiology - Last 24 Hours (Table) 03/23/24 16:54 Blood Culture - Final Blood 03/26/24 15:15 Anaerobic Culture - Preliminary Heel - Left 03/26/24 15:15 Gram Stain - Preliminary Heel - Left Tissue Culture - Preliminary Pseudomonas aeruginosa Methicillin resist S. aureus Gram Neg Bacilli
--- NOTE | 2024-03-29 15:05 | P.PN ---
Subjective Progress Note Date: 03/29/24 Principal diagnosis: Reason for follow-up is UTI leukocytosis and pressure ulcer Patient is a 63-year-old female with a past medical history significant for chronic back pain status post back surgery resulting in paraplegic, depression chronic lower extremity wounds and nonalcoholic cirrhosis lung cancer also had splenectomy presenting to the hospital with abdominal pain, patient be diagnosed with constipation also have a positive BM bladder distention from retention positive UA concerning for UTI. Patient has been evaluated by vascular surgery status post bedside surgical debridement of the left heel cultures obtained On today's evaluation that is 03/29/2024, the patient continues to be afebrile, the patient is on 2 L nasal oxygen and breathing comfortably, the Pt denies having any chest pain or cough, the patient denies having any abdominal pain no vomiting or any diarrhea has been reported by the nursing staff. Patient white count is 11.13, creatinine 0.41 culture growing drug-resistant Pseudomonas MRSA and gram-negative bacilli Objective - Vital Signs Vital signs: Vital Signs Temp 97.8 F 03/29/24 07:16 Pulse 63 03/29/24 07:16 Resp 20 03/29/24 07:16 BP 121/78 03/29/24 07:16 Pulse Ox 92 L 03/29/24 07:16 FiO2 Intake & Output 03/28/24 03/29/24 03/29/24 18:59 06:59 18:59 Intake Total 200 Output Total 114 Balance 86 Weight 90.718 kg Intake: Oral 200 Output: Post Void Residual 114 Other: Voiding Method Indwelling Catheter Incontinent External Catheter # Voids 1 - Exam GENERAL DESCRIPTION: An elderly female lying in bed in no distress RESPIRATORY SYSTEM: Unlabored breathing , decreased breath sounds at bases HEART: S1 S2 regular rate and rhythm , ABDOMEN: Soft , no tenderness EXTREMITIES: Patient left heel wound is currently dressed - Labs CBC & Chem 7: 03/29/24 03:54 03/29/24 03:59 Labs: Abnormal Lab Results - Last 24 Hours (Table) 03/29/24 03/29/24 Range/Units 03:54 03:59 WBC 11.13 H (4.50-10.00) X 10*3/uL Hgb 11.8 L (12.0-15.0) g/dL MCH 24.6 L (27.0-32.0) pg MCHC 30.2 L (32.0-37.0) g/dL RDW 20.5 H (11.5-14.5) % Plt Count 583 H (140-440) X 10*3/uL MPV 9.4 L (9.5-12.2) FL Immature Gran # 0.09 H (0.00-0.04) X 10*3/uL Monocytes # 1.53 H (0.20-1.00) X 10*3/uL Eosinophils # 0.54 H (0.04-0.35) X 10*3/uL BUN 3 L (7-17) mg/dL Creatinine 0.41 L (0.52-1.04) mg/dL Microbiology - Last 24 Hours (Table) 03/23/24 16:54 Blood Culture - Final Blood 03/26/24 15:15 Anaerobic Culture - Preliminary Heel - Left 03/26/24 15:15 Gram Stain - Preliminary Heel - Left Tissue Culture - Preliminary Pseudomonas aeruginosa Methicillin resist S. aureus Gram Neg Bacilli Assessment and Plan (1) Leukocytosis Current Visit: Yes Status: Acute Code(s): D72.829 - ELEVATED WHITE BLOOD CELL COUNT, UNSPECIFIED SNOMED Code(s): 692821650 (2) UTI (urinary tract infection) Current Visit: Yes Status: Acute Code(s): N39.0 - URINARY TRACT INFECTION, SITE NOT SPECIFIED SNOMED Code(s): 04488495 (3) Decubitus ulcer of left heel, stage 3 Current Visit: Yes Status: Acute Code(s): L89.623 - PRESSURE ULCER OF LEFT HEEL, STAGE 3 SNOMED Code(s): 51650567964165 (4) Stage II pressure ulcer of back Current Visit: Yes Status: Acute Code(s): L89.102 - PRESSURE ULCER OF UNSPECIFIED PART OF BACK, STAGE 2 SNOMED Code(s): 83457923957882270 (5) Positive blood culture Current Visit: Yes Status: Acute Code(s): R78.81 - BACTEREMIA SNOMED Code(s): 637043044 Plan: 1patient presented to hospital with abdominal pain and this patient has been diagnosed with bladder distention with mild hydronephrosis possible incomplete emptying of the bladder did have a positive UA with burning urine concerning for symptomatic UTI likely from to the gram-negative pathogen also with evidence of constipation General Surgery following the patient 2-patient did have a pressure ulcer to the left heel area with some slough tissue culture obtained which are so far negative 3blood culture positive with staph epi possible skin contamination versus related to the heel ulcer, blood culture has been repeated which has been negative so far 4patient is status post debridement of the left heel wound, with a culture now growing MRSA and drug-resistant Pseudomonas aeruginosa, bone scan is currently progress to make sure no evidence of any osteomyelitis 5patient will be treated with meropenem 1 g every 8 along with vancomycin pharmacy to dose to cover for MRSA she already has a PICC line plan is for at least 6 weeks of antibiotics once osteomyelitis confirmed on the bone scan Dictation was produced using [employer] dictation software. please excuse any grammatical, word or spelling errors. Time with Patient: Less than 30
--- NOTE | 2024-03-29 16:07 | NM ---
INDICATION: Patient age:Female; 63 years old; Reason for study: left diabetic foot ulcer cellulitis R/O osteomyel; [facility]. COMPARISON: Left ankle radiograph 03/20/2024, nuclear medicine bone scan 10/19/2021. PROCEDURE: A 3 phase bone scan limited both lower extremities was obtained following the IV administr ation of 22.2 mCi of [id number]. FINDINGS: The three phase bone scan demonstrates mildly increased blood flow left ankle and toes. Ang iographic blood pool images show hyperemia involving the left ankle and toes. Delayed images demonstr ate radiotracer uptake within both ankles and feet. There is radiotracer uptake most prominently with in the left heel on delayed imaging. IMPRESSION: Radiotracer uptake identified on all 3 phases within the left ankle and foot. Prominent radiotracer u ptake within the left heel on delayed imaging. Raises possibility of osteomyelitis. Recommend further evaluation with MRI. [facility], , 03/29/2024 4:05 PM
--- NOTE | 2024-03-30 09:28 | P.PN ---
Subjective Progress Note Date: 03/30/24 Patient my stable. There is no significant change to her superficial decubitus ulcer. She will continue to receive local wound care. Objective - Vital Signs Vital signs: Vital Signs Temp 99 F 03/30/24 02:00 Pulse 71 03/30/24 02:00 Resp 17 03/30/24 02:00 BP 168/77 03/30/24 02:00 Pulse Ox 97 03/30/24 02:00 FiO2 Intake & Output 03/29/24 03/30/24 03/30/24 18:59 06:59 18:59 Other: Voiding Method Incontinent Incontinent External Catheter External Catheter # Voids 5 # Bowel Movements 1 2 - Labs CBC & Chem 7: 03/29/24 03:54 03/29/24 03:59 Labs: Microbiology - Last 24 Hours (Table) 03/26/24 15:15 Gram Stain - Preliminary Heel - Left Tissue Culture - Final Pseudomonas aeruginosa Methicillin resist S. aureus Citrobacter freundii 03/24/24 05:53 Blood Culture - Final Blood
[2024-03-30 09:30] VITALS: BP 89/54; PULSE 65; RESP 18; TEMP 97.5
--- NOTE | 2024-03-30 10:22 | P.PN ---
Subjective Progress Note Date: 03/29/24 63-year-old lady with past medical history significant for paraplegia, back surgery, chronic lower extremity wounds, splenectomy presents the ER for abdominal pain. Patient stated she was all right 3 days back when she started having abdominal pain. Patient abdominal pain was generalized, cramping in n ature, no radiating or relieving factor associated abdominal pain. Patient was complaining of nausea but no vomiting. Patient last bowel movement was 3 days ago. There was no complaint of fever or chills. There was no complaint of chest pain or shortness of breath. Patient also had pain in her left ankle with swelling, states it was secondary to pressure injury from laying in the bed. Denies any trauma. Patient is bedridden. Because of this abdominal pain, patient brought to the ER Initial lab work done in the ER showed WBC 19.3, hemoglobin 13.8, platelet count 751, sodium 130, potassium 2.5, lactate 2.1, UA positive for leukocyte Estrace, urine WBC 182, COVID-19 not detected, influenza A and influenza B negative, RSV is negative CT abdomen pelvis done showed distended urinary bladder with mild bilateral hydronephrosis no obstructing calculus visualized EKG done in the ER showed heart rate of 86 , no ST segment elevation or depression seen, no T-wave inversions seen. X-ray ankle done showed no evidence of acute fracture Patient admitted to internal medicine service 24-hour interval change 03/23/2024 Patient is seen and evaluated in room at bedside; potassium is elevated at 5.6; currently on potassium replacement protocol Vital signs are reviewed and remained stable Lab review shows WBC 15.9, hemoglobin of 12.4 and platelet count of 434, sodium 139, potassium 5.3, BUNs/creatinine of 11/0.42 patient presented to hospital with abdominal pain and this patient has been diagnosed with bladder distention with mild hydronephrosis possible incomplete emptying of the bladder did have a positive UA with burning urine concerning for symptomatic UTI likely from to the gram-negative pathogen also with evidence of constipation General Surgery following the patient -patient did have a pressure ulcer to the left heel area with some slough tissue culture obtained results will be followed blood culture positive with staph epi possible skin contamination versus related to the heel ulcer but culture will be repeated document clearance local wound care to the left heel with Medihoney followed by moist dressing and keep the area of pressure and local wound care to the back wound with dry Aquacel dressing change q. 48-hour -Patient is currently on IV Rocephin and vancomycin to continue while waiting for the workup to be completed 03/24/2024 --Patient is afebrile patient is currently on 2 L removed and denies having any shortness of breath, the patient denies any chest pain or cough, the patient denies any nausea vomiting did not have any abdominal pain, no new symptoms patient white count is down to 11.72, creatinine 0.39 blood urine culture has been negative so far patient admitted with bladder distention with mild hydronephrosis possible incomplete emptying of the bladder did have a positive UA with burning urine concerning for symptomatic UTI likely from to the gram-negative pathogen also with evidence of constipation General Surgery following the patient -patient did have a pressure ulcer to the left heel area with some slough tissue culture obtained which are so far negative blood culture positive with staph epi possible skin contamination versus related to the heel ulcer, blood culture has been repeated patient white count is trending down to 11,000, patient to continue with Rocephin while inpatient and monitor clinical course closely 03/25/2024 Patient is seen in follow-up today maintained on antibiotics with infectious disease following along with general surgery as patient is scheduled to undergo EGD/colonoscopy today. Patient is currently n.p.o. Patient is continued on antibiotics for urinary tract infection and also continue local wound care for the left foot heel wound. Patient will be going to ECF on discharge and will discuss with case management regarding discharge planning. Patient is currently afebrile with no reports of chest pain or shortness of breath. Patient was currently wearing oxygen although not on and maintaining oxygen saturations. 03/26/2024 Patient is seen in follow-up today maintained on antibiotics and patient is status post colonoscopy which was normal and diet has been advanced. Patient continues on antibiotics with infectious disease following and will reconsult vascular surgery Dr. Canela for further evaluation of the left heel and pos sible debridement. Patient will require cultures to be finalized to determine discharge antibiotics. Patient with significant weakness would benefit from ECF and case management following working on referrals. Patient is afebrile with no reports of chest pain. Patient continued on 2 L of oxygen and reports she does not wear it at home. Wean FiO2 as tolerated. 03/27/2024 Patient is seen in follow-up this morning being followed by general surgery along with infectious disease continued on antibiotics while awaiting cultures to finalize. Patient did also undergo debridement with Dr. Canela vascular surgery of the left heel and awaiting cultures at this time as well preliminary showing gram-negative bacilli along with presumptive MRSA and will await finalized cultures to determine discharge antibiotics. Patient reports would like to go home although if requiring IV antibiotics may need ECF and will discuss with case management once cultures are finalized. Patient continues with indwelling Llanes catheter and will trial void and monitor for any retention. 03/28/2024 Patient is seen in follow-up today awaiting cultures from left heel debridement showing gram-negative bacilli and presumptive MRSA. Patient being followed by infectious disease maintained on antibiotics and will likely require IV antibiotics. Plan will be to go to ECF for continued antibiotic therapy pending insurance authorization. Currently awaiting finalized cultures to determine appropriate discharge antibiotics. Patient will require a PICC line likely and an order has been placed by infectious disease. Bone scan ordered and will be performed in AM. White count is trending down although continues to be mildly elevated and patient remains afebrile. Llanes catheter was discontinued and patient is voiding. 03/29/2024 Patient is seen today with infectious disease and vascular surgery following. Patient is status post debridement of the left heel showing MRSA and patient will require IV antibiotics including a PICC line for 6 weeks course on discharge per ID recommendations. Case management following and will need to submit for insurance authorization as plan is for patient to go to ECF for continued IV antibiotic therapy. Patient continues on 2 L of oxygen via nasal cannula reports does not wear at home, recommend weaning FiO2 as tolerated and will follow-up with a chest x-ray. Encourage incentive spirometer use. Patient did have Llanes catheter which was removed and patient is voiding. Patient is afebrile although white count remains slightly elevated. Follow-up labs ordered for a.m. encouraged increase activity as tolerated including getting out of bed and sitting in the chair more often. Review of systems: Constitutional: No reports of fatigue, fever, or chills Cardiovascular: No reports of chest pain or palpitations Respiratory: No reports of shortness of breath or cough GI: No reports of nausea, vomiting, or diarrhea : No reports of dysuria or retention Neurovascular: reports of generalized weakness All medications have been reviewed Physical exam: GENERAL: The patient is alert and oriented x3, Well developed, elderly appearing, obese HEENT: Pupils are round and equally reacting to light. EOMI. No scleral icterus. No conjunctival pallor. Normocephalic, atraumatic. No pharyngeal erythema. No thyromegaly. CARDIOVASCULAR: S1 and S2 are muffled PULMONARY: Diminished breath sounds bilaterally otherwise chest is clear to auscultation, no wheezing or crackles. ABDOMEN: Soft, obese nontender, nondistended, normoactive bowel sounds. No palpable organomegaly. MUSCULOSKELETAL: No joint swelling or deformity. EXTREMITIES: No cyanosis, clubbing, or pedal edema. NEUROLOGICAL: Gross neurological examination did not reveal any focal deficits. Diffusely weak SKIN: No rashes. Assessment: Acute urinary tract infection, present on admission with sepsis Hypokalemia, improved Lactic acidosis, improved secondary to above Constipation, improved patient is having bowel movements and is status post colonoscopy within normal colonoscopy noted Stage III pressure ulcer of the left heel with concerns of left foot cellulitis, present on admission, status postdebridement on 03/26/2024 with vascular surgery, cultures growing MRSA Stage II pressure ulcer of the back, present on admission Urinary retention requiring indwelling Llanes catheter, improved and patient is voiding Bilateral hydronephrosis possibly secondary to urinary tract infection as well as retention History of paraplegia History of back surgery Obesity with a BMI of 37.8 GI prophylaxis DVT prophylaxis Full code Plan: Patient maintained on antibiotics with infectious disease following. Culture showing MRSA and will require PICC line on discharge. Plan will be for 6 weeks course of antibiotic therapy with meropenem every 8 as well as vancomycin with pharmacy to dose. Case management following and will need to submit for insurance authorization to [facility] Vascular surgery Dr. Canela debrided the left heel and pending deep cultures, preliminary presumptive MRSA Patient evaluated by physical therapy noted to have generalized weakness recommending rehab and patient is agreeable. Patient will require insurance authorization Continue local wound care per ID and vascular surgery recommendations Llanes catheter was removed and patient is voiding Continue bowel regimen Encouraged increase activity as tolerated with sitting up in the chair more often Follow-up on repeat labs Replace electrolytes per protocol, potassium has been chronically low and will consider adding daily supplementation Due to multiple complex medical issues, overall prognosis is guarded Plan will be possibly for patient to discharge to [facility] and does require insurance authorization. Patient will be continued on a 6 weeks course of antibiotic therapy on discharge per ID recommendations in the form of vancomycin and meropenem. The impression and plan of care has been dictated by Nahomy Washington, Nurse Practitioner as directed. Dr. Emile MD I have performed a history and examination and MDM of this patient, discussed the same with the dictator, and agree with the dictator's assessment and plan as written ,documented as a scribe. Based on total visit time, I have performed more than 50% of the visit. Objective - Vital Signs Vital signs: Vital Signs Temp 97.8 F 03/29/24 07:16 Pulse 63 03/29/24 07:16 Resp 20 03/29/24 07:16 BP 121/78 03/29/24 07:16 Pulse Ox 92 L 03/29/24 07:16 FiO2 Intake & Output 03/28/24 03/29/24 03/29/24 18:59 06:59 18:59 Intake Total 200 Output Total 114 Balance 86 Weight 90.718 kg Intake: Oral 200 Output: Post Void Residual 114 Other: Voiding Method Indwelling Catheter Incontinent External Catheter # Voids 1 - Labs CBC & Chem 7: 03/29/24 03:54 03/29/24 03:59 Labs: Abnormal Lab Results - Last 24 Hours (Table) 03/29/24 03/29/24 Range/Units 03:54 03:59 WBC 11.13 H (4.50-10.00) X 10*3/uL Hgb 11.8 L (12.0-15.0) g/dL MCH 24.6 L (27.0-32.0) pg MCHC 30.2 L (32.0-37.0) g/dL RDW 20.5 H (11.5-14.5) % Plt Count 583 H (140-440) X 10*3/uL MPV 9.4 L (9.5-12.2) FL Immature Gran # 0.09 H (0.00-0.04) X 10*3/uL Monocytes # 1.53 H (0.20-1.00) X 10*3/uL Eosinophils # 0.54 H (0.04-0.35) X 10*3/uL BUN 3 L (7-17) mg/dL Creatinine 0.41 L (0.52-1.04) mg/dL Microbiology - Last 24 Hours (Table) 03/23/24 16:54 Blood Culture - Final Blood 03/26/24 15:15 Anaerobic Culture - Preliminary Heel - Left 03/26/24 15:15 Gram Stain - Preliminary Heel - Left Tissue Culture - Preliminary Pseudomonas aeruginosa Methicillin resist S. aureus Gram Neg Bacilli
--- NOTE | 2024-03-30 10:44 | P.DS ---
Providers Date of admission: 03/20/24 21:24 Expected date of discharge: 03/30/24 Attending physician: Guido Page MD Consults: 03/20/24 21:21 Consult Physician Routine Consulting Provider: Reji Clifford Consult Reason/Comments: abd pain Do you want consulting provider notified?: Yes Consult Physician Routine Consulting Provider: Amanda Eli Consult Reason/Comments: cellulitis, open heel wound Do you want consulting provider notified?: Yes 03/26/24 12:29 Consult Physician Routine Consulting Provider: Rosalio Canela Consult Reason/Comments: left heel wound, debridemnt and deep cultures Do you want consulting provider notified?: Yes Primary care physician: [facility] Course: Final diagnosis Acute urinary tract infection, present on admission with sepsis Hypokalemia, improved Lactic acidosis, improved secondary to above Constipation, improved patient is having bowel movements and is status post colonoscopy within normal colonoscopy noted Stage III pressure ulcer of the left heel with concerns of left foot cellulitis, present on admission, status postdebridement on 03/26/2024 with vascular surgery, cultures growing MRSA Stage II pressure ulcer of the back, present on admission Urinary retention requiring indwelling Llanes catheter, improved and patient is voiding Bilateral hydronephrosis possibly secondary to urinary tract infection as well as retention History of paraplegia History of back surgery Obesity with a BMI of 37.8 GI prophylaxis DVT prophylaxis Full code Discharge disposition Patient is being discharged in a stable condition with guarded prognosis to [facility]. Patient will follow-up with Dr. Alden Baptiste in the outpatient setting upon discharge. Patient is to continue with close outpatient follow-up with infectious disease as well as vascular surgery Dr. Canela and has her PICC line and will continue on IV antibiotics in the form of vancomycin and meropenem for 6 weeks. Total time taken is greater than 35 minutes. Hospital course This is a 63-year-old female who was recently admitted with acute urinary tract infection, present on admission with sepsis and also left heel wound with noted stage III pressure ulcer that was debrided with vascular surgery Dr. Canela. Cultures growing MRSA and bone scan showing significant uptake in the left heel and ankle for osteomyelitis. Patient has received a PICC line and will continue on IV antibiotics per ID recommendations. Initially patient wanted to go home although given IV antibiotics patient will require rehab on discharge. Patient was also noted to have a urinary tract infection on admission with retention although has improved and Llanes was removed and patient is voiding. Patient has been accepted by vascular surgery and insurance authorization was obtained. Patient has been cleared by consultations and will be going to [facility] today. Please refer to other consultation notes for further HPI. Currently no reports of chest pain, shortness of breath, or palpitations. Patient is afebrile. No reports of nausea or vomiting and patient is tolerating diet. Patient will be going to [facility] today. Guarded prognosis. High risk for readmission given significant comorbidities and ongoing osteomyelitis. Physical exam: Gen: This is a 63-year-old female who is awake, alert and oriented x 3, well-d eveloped, elderly appearing, obese HEENT: Head is atraumatic, normocephalic. Pupils equal, round. Sclerae is anicteric. NECK: Supple. No JVD. No lymphadenopathy. No thyromegaly. LUNGS: Diminished breath sounds bilaterally otherwise clear to auscultation. No wheezes or rhonchi. No intercostal retractions. HEART: S1, S2 are muffled ABDOMEN: Soft. Obese. Bowel sounds are present. No masses. No tenderness. EXTREMITIES: No pedal edema. No calf tenderness. Left heel surgical dressing dry and intact NEUROLOGICAL: Patient is awake, alert and oriented x3. Cranial nerves 2 through 12 are grossly intact. Diffusely weak with history of paraplegia Please refer to medication reconciliation sheet for a list of medications. The impression and plan of care has been dictated by Nahomy Washington, Nurse Practitioner as directed. Dr. Emile MD I have performed a history and examination and MDM of this patient, discussed the same with the dictator, and agree with the dictator's assessment and plan as written ,documented as a scribe. Based on total visit time, I have performed more than 50% of the visit. Patient Condition at Discharge: Fair Plan - Discharge Summary Discharge Rx Participant: Yes New Discharge Prescriptions: New Collagenase [Santyl Ointment] 1 applic TOPICAL DAILY each Vancomycin 1,750 mg IVPB Q12H 42 Days #84 each Meropenem [Merrem] 1 gm IVPB Q8H 42 Days #126 each Acetaminophen Tab [Tylenol] 650 mg PO Q6HR PRN tab PRN Reason: Mild Pain Or Fever > 100.5 Continue Ondansetron [Zofran] 4 mg PO Q6H PRN PRN Reason: Nausea And Vomiting Ipratropium-Albuterol Nebulize [Duoneb 0.5 mg-3 mg/3 ml Soln] 3 ml INHALATION RT-TID PRN PRN Reason: Shortness Of Breath Metoprolol Tartrate [Lopressor] 25 mg PO BID Gabapentin [Neurontin] 300 mg PO TID Fluticasone Propion/Salmeterol [Fluticasone-Salmeterol 250-50] 1 puff INHALATION RT-BID DULoxetine HCL [Cymbalta] 60 mg PO DAILY Atorvastatin [Lipitor] 80 mg PO HS oxyCODONE HCL [Roxicodone] 5 mg PO Q6HR PRN #6 tab PRN Reason: Pain Discharge Medication List Atorvastatin [Lipitor] 80 mg PO HS 03/21/24 [History] DULoxetine HCL [Cymbalta] 60 mg PO DAILY 03/21/24 [History] Fluticasone Propion/Salmeterol [Fluticasone-Salmeterol 250-50] 1 puff INHALATION RT-BID 03/21/24 [History] Gabapentin [Neurontin] 300 mg PO TID 03/21/24 [History] Ipratropium-Albuterol Nebulize [Duoneb 0.5 mg-3 mg/3 ml Soln] 3 ml INHALATION RT-TID PRN 03/21/24 [History] Metoprolol Tartrate [Lopressor] 25 mg PO BID 03/21/24 [History] Ondansetron [Zofran] 4 mg PO Q6H PRN 03/21/24 [History] Acetaminophen Tab [Tylenol] 650 mg PO Q6HR PRN tab 03/30/24 [Rx] Collagenase [Santyl Ointment] 1 applic TOPICAL DAILY each 03/30/24 [Rx] Meropenem [Merrem] 1 gm IVPB Q8H 42 Days #126 each 03/30/24 [Rx] Vancomycin 1,750 mg IVPB Q12H 42 Days #84 each 03/30/24 [Rx] oxyCODONE HCL [Roxicodone] 5 mg PO Q6HR PRN #6 tab 03/30/24 [Rx] Follow up Appointment(s)/Referral(s): [facility] [REFERRING] - As Needed (Call to see if you 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 ) Shanti Peres MD [Primary Care Provider] - 1-2 days Rosalio Canela MD [STAFF PHYSICIAN] - 1 Week Activity/Diet/Wound Care/Special Instructions: Patient is going to [facility] on [facility] [address] Activity as tolerated Continue local wound care with Santyl on the left heel and will need outpatient follow-up with vascular surgery Dr. Canela Patient has a PICC line and will be continued on IV antibiotics for 6 weeks per ID recommendations IV antibiotics per Dr. Eli: 1. Meropenem IV 1gm q8 hours for 6 weeks 2. Vancomycin IV pharmacy to dose for 6 weeks. Current dose is 1750mg q 12 hours.
[2024-03-30 10:54] LABS: Blood Urea Nitrogen 4.1 mg/dL (9.0-27.0); Calcium 8.3 mg/dL (8.7-10.3); Carbon Dioxide 22.2 mmol/L (21.6-31.8); Chloride 109 mmol/L (96-109); Glucose 115 mg/dL (70-110); Potassium 3.7 mmol/L (3.5-5.5); Sodium 141 mmol/L (135-145)
[2024-03-30 11:39] LABS: Acanthocytes 2+ (None Seen); Basophils # (A) 0.08 X 10*3/uL (0.00-0.10); Basophils % (A) 0.7 %; Eosinophils # (A) 0.72 X 10*3/uL (0.04-0.35); Eosinophils % (A) 6.2 %; HCT 36.7 % (37.2-46.3); HGB 11.4 g/dL (12.0-15.0); Lymphocytes # (A) 3.12 X 10*3/uL (0.90-5.00); Lymphocytes % (A) 26.8 %; MCH 24.8 pg (27.0-32.0); MCHC 31.1 g/dL (32.0-37.0); MCV 79.8 FL (80.0-97.0); Monocytes # (A) 1.15 X 10*3/uL (0.20-1.00); Monocytes % (A) 9.9 %; NRBC Per 100 WBC 0 X 10*3/uL (0.00-0.01); Neutrophils # (A) 6.49 X 10*3/uL (1.80-7.70); Neutrophils % (A) 55.8 %; Platelet Count 483 X 10*3/uL (140-440); RDW 20.1 % (11.5-14.5); WBC 11.63 X 10*3/uL (4.50-10.00)
[2024-03-30] MEDS: VANCOMYCIN TROUGH DUE 1 EACH MISC MISCELLANE ONE (12:00)
--- NOTE | 2024-03-30 12:57 | P.PN ---
Subjective Progress Note Date: 03/30/24 Principal diagnosis: Reason for follow-up is UTI leukocytosis and pressure ulcer Patient is a 63-year-old female with a past medical history significant for chronic back pain status post back surgery resulting in paraplegic, depression chronic lower extremity wounds and nonalcoholic cirrhosis lung cancer also had splenectomy presenting to the hospital with abdominal pain, patient be diagnosed with constipation also have a positive BM bladder distention from retention positive UA concerning for UTI. Patient has been evaluated by vascular surgery status post bedside surgical debridement of the left heel cultures obtained On today's evaluation that is 03/30/2024, patient did not have any fever and denies any chills, patient is breathing comfortably on 3 L current oxygen patient with no chest pain or cough patient did not have any abdominal pain nausea vomiting or any loose stools. Patient white count is 11.63 creatinine 0.5 Objective - Vital Signs Vital signs: Vital Signs Temp 97.5 F L 03/30/24 07:10 Pulse 65 03/30/24 07:10 Resp 18 03/30/24 07:10 BP 89/54 03/30/24 07:10 Pulse Ox 97 03/30/24 07:10 FiO2 Intake & Output 03/29/24 03/30/24 03/30/24 18:59 06:59 18:59 Other: Voiding Method Incontinent Incontinent Incontinent External Catheter External Catheter # Voids 5 1 # Bowel Movements 1 2 - Exam GENERAL DESCRIPTION: An elderly female lying in bed in no distress RESPIRATORY SYSTEM: Unlabored breathing , decreased breath sounds at bases HEART: S1 S2 regular rate and rhythm , ABDOMEN: Soft , no tenderness EXTREMITIES: Patient left heel wound is currently dressed - Labs CBC & Chem 7: 03/30/24 06:27 03/30/24 06:27 Labs: Abnormal Lab Results - Last 24 Hours (Table) 03/30/24 Range/Units 06:27 BUN 4.1 L (9.0-27.0) mg/dL Creatinine 0.5 L (0.6-1.5) mg/dL BUN/Creatinine Ratio 8.20 L (12.00-20.00) Ratio Glucose 115 H (70-110) mg/dL Calcium 8.3 L (8.7-10.3) mg/dL Microbiology - Last 24 Hours (Table) 03/26/24 15:15 Gram Stain - Preliminary Heel - Left Tissue Culture - Final Pseudomonas aeruginosa Methicillin resist S. aureus Citrobacter freundii 03/24/24 05:53 Blood Culture - Final Blood Assessment and Plan (1) Leukocytosis Current Visit: Yes Status: Acute Code(s): D72.829 - ELEVATED WHITE BLOOD CELL COUNT, UNSPECIFIED SNOMED Code(s): 883178245 (2) UTI (urinary tract infection) Current Visit: Yes Status: Acute Code(s): N39.0 - URINARY TRACT INFECTION, SITE NOT SPECIFIED SNOMED Code(s): 16580522 (3) Decubitus ulcer of left heel, stage 3 Current Visit: Yes Status: Acute Code(s): L89.623 - PRESSURE ULCER OF LEFT HEEL, STAGE 3 SNOMED Code(s): 85152135482364 (4) Stage II pressure ulcer of back Current Visit: Yes Status: Acute Code(s): L89.102 - PRESSURE ULCER OF UNSPECIFIED PART OF BACK, STAGE 2 SNOMED Code(s): 82932677780931495 (5) Positive blood culture Current Visit: Yes Status: Acute Code(s): R78.81 - BACTEREMIA SNOMED Code(s): 560935385 Plan: 1patient presented to hospital with abdominal pain and this patient has been diagnosed with bladder distention with mild hydronephrosis possible incomplete emptying of the bladder did have a positive UA with burning urine concerning for symptomatic UTI likely from to the gram-negative pathogen also with evidence of constipation General Surgery following the patient 2-patient did have a pressure ulcer to the left heel area with some slough tissue culture obtained which are so far negative 3blood culture positive with staph epi possible skin contamination versus related to the heel ulcer, blood culture has been repeated which has been negative so far 4patient is status post debridement of the left heel wound, with a culture now growing MRSA and drug-resistant Pseudomonas aeruginosa, bone scan is suggestive of osteomyelitis 5patient will be treated with meropenem 1 g every 8 along with vancomycin pharmacy to dose to finish 6 weeks of antibiotics and a close outpatient follow- up Dictation was produced using [employer] software. please excuse any grammatical, word or spelling errors.
== END 2024-03-30 14:21 | DRG 689 ==
LOC: EC 16:48 → 4SSUR 21:24 → EEVIPCON 21:24 → 4SSUR 23:35
PROVIDERS: ADMIT Internal Medicine; ATTEND Internal Medicine
PROC: 05H933Z Insertion of Infusion Device into Right Brachial Vein, Percutaneous Approach (ICD-10-PCS; 2024-03-25)
PROC: 0DJD8ZZ Inspection of Lower Intestinal Tract, Via Natural or Artificial Opening Endoscopic (ICD-10-PCS; principal; 2024-03-25 11:00)
PROC: 0HBNXZZ Excision of Left Foot Skin, External Approach (ICD-10-PCS; 2024-03-26)
DX: N13.6 Pyonephrosis (principal); A41.89 Other specified sepsis; L89.623 Pressure ulcer of left heel, stage 3; E87.20 Acidosis, unspecified; L89.102 Pressure ulcer of unspecified part of back, stage 2; I96 Gangrene, not elsewhere classified; G82.20 Paraplegia, unspecified; Z68.37 Body mass index [BMI] 37.0-37.9, adult; D64.9 Anemia, unspecified; M86.9 Osteomyelitis, unspecified; L03.116 Cellulitis of left lower limb; E66.01 Morbid (severe) obesity due to excess calories; E87.5 Hyperkalemia; E87.6 Hypokalemia; K59.00 Constipation, unspecified; F17.200 Nicotine dependence, unspecified, uncomplicated
CPT/HCPCS: 36410; 36415; 36573; 45378; 74019; 74177; 76937; 78315; 80048; 80053; 80202; 81001; 82150; 82565; 83605; 83690; 83735; 84132; 85025; 85610; 85730; 86140; 87040; 87070; 87075; 87077; 87086; 87186; 87205; 87636; 93005; 94640; 94760; 96361; 96365; 96366; 96367; 96375; 96376; 99291

== ENCOUNTER 2024-05-17 07:09 | Inpatient (IN) | payer MEDICARE, OTHER ==
[2024-05-17] MEDS ORDERED: VANCOMYCIN IV PER PHARMACY 1 EACH MISC MISCELLANE PRN (07:36)
--- NOTE | 2024-05-17 08:13 | ED ---
General Adult HPI - General Chief complaint: Altered Mental Status Stated complaint: AMS Time Seen by Provider: 05/17/24 07:19 Source: patient, EMS, RN notes reviewed, old records reviewed Mode of arrival: EMS Limitations: altered mental status - History of Present Illness Initial comments: Patient is a 63-year-old female transferred from her nursing facility for concern for altered mental status, in the setting of a UTI that is being treated with IV antibiotics via PICC line. Patient is ANO x 1-2 at this time. Is moaning in pain due to abdominal discomfort. No significant history obtained from EMS and/or nursing staff otherwise. 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 Recurrent UTIs. Presents for further evaluation at this time. - Related Data Home Medications Medication Instructions Recorded Confirmed Atorvastatin [Lipitor] 80 mg PO HS@209903/21/24 05/17/24 DULoxetine HCL [Cymbalta] 60 mg PO DAILY@0903/21/24 05/17/24 Fluticasone Propion/Salmeterol 1 puff INHALATION RT-BID@0900,209903/21/24 05/17/24 [Fluticasone-Salmeterol 250-50] Gabapentin [Neurontin] 300 mg PO Q8HR@0600,1400,2200 03/21/24 05/17/24 Metoprolol Tartrate [Lopressor] 25 mg PO BID@0900,209903/21/24 05/17/24 Ondansetron [Zofran] 4 mg PO Q6H PRN 03/21/24 05/17/24 Acetaminophen Tab [Tylenol] 325 mg PO Q6HR PRN 05/17/24 05/17/24 Baclofen [Lioresal] 10 mg PO TID@0900,1300,209905/17/24 05/17/24 Calcium Carbonate/Vitamin D3 1 tab PO DAILY@0900 05/17/24 05/17/24 [Calcium 600 mg-Vit D3 10 mcg (400 Unit)] Cetirizine HCl [Zyrtec] 10 mg PO HS@209905/17/24 05/17/24 Collagenase [Santyl Ointment] 1 applic TOPICAL DAILY PRN 05/17/24 05/17/24 Collagenase [Santyl Ointment] 1 applic TOPICAL HS 05/17/24 05/17/24 Cyclobenzaprine [Flexeril] 10 mg PO HS@209905/17/24 05/17/24 Ensure Clear 1 can PO BID@0900,209905/17/24 05/17/24 Hydrophilic Cream [Triad (Kerodex 1 applic TOPICAL MOWEFR@209905/17/24 05/17/24 geq)] Mag Hydrox/Aluminum Hyd/Simeth 30 ml PO Q6H PRN 05/17/24 05/17/24 [Mylanta Maximum Strength Liq] Potassium Chloride ER [K-Dur 20] 20 meq PO BID@0900,209905/17/24 05/17/24 modafiniL 100 mg PO DAILY@89905/17/24 05/17/24 oxyCODONE HCL [Roxicodone] 5 mg PO Q4H PRN 05/17/24 05/17/24 Allergies Allergy/AdvReac Type Severity Reaction Status Date / Time gentamicin Allergy Anaphylaxis Verified 05/17/24 09:43 Review of Systems ROS Statement: Those systems with pertinent positive or pertinent negative responses have been documented in the HPI. Review of Systems: CONST: Denies fever EYES: Denies blurry vision ENT: Denies nasal congestion C/V: Denies Chest pain RESP: Denies shortness of breath GI: Endorses abdominal pain : Denies dysuria SKIN: Denies rash. MSK: Denies joint pain. NEURO: Denies headache ROS Other: All systems not noted in ROS Statement are negative. Past Medical History Past Medical History: Cancer, Hearing Disorder / Deafness Additional Past Medical History / Comment(s): back pain; "several tia's-Last TIA 1 1/2 YEARS AGO, pluerisy, migraines, past falls, "was told at [facility] she had non-alcoholic cirrhosis". lung cancer History of Any Multi-Drug Resistant Organisms: None Reported Past Surgical History: Back Surgery, Breast Surgery, Hysterectomy Additional Past Surgical History / Comment(s): back sx, neck sx. spleenectomy- d/t injury; benign R Breast lumpectomy, sinus sx Past Anesthesia/Blood Transfusion Reactions: No Reported Reaction Additional Past Anesthesia/Blood Transfusion Reaction / Comment(s): Pt hs clausterphobia Past Psychological History: Depression Smoking Status: Current some day smoker Past Alcohol Use History: None Reported Past Drug Use History: None Reported - Past Family History Mother Family Medical History: Cancer Additional Family Medical History / Comment(s): Father History Unknown: Yes Family Medical History: No Reported History Additional Family Medical History / Comment(s): Father was murdered General Exam - General Exam Comments Initial Comments: General: Appears in mild distress. Appears uncomfortable. HEAD: Normal with no signs of head trauma. EYES: PERRLA, EOMI, conjunctiva normal, no discharge. Pupils 3 mm and equal bilaterally. ENT: Hearing grossly intact, normal oropharynx. RESPIRATORY: Clear breath sounds bilaterally. No wheezes, rales, or rhonchi. C/V: Regular rate and rhythm. S1 and S2 auscultated, no edema, peripheral pulses 2+ and intact throughout ABD: Abdomen soft, nondistended. No focal tenderness to palpation. No guarding or rebound tenderness. EXT: Normal range of motion, no obvious deformity SKIN: No rashes or lesions observed on exposed skin. NEURO: Alert and oriented x 1-2. History of paraplegia. Appears to be at her baseline in terms of extremity movement. No focal deficits. Limitations: altered mental status Course Vital Signs 05/17/24 05/17/24 05/17/24 07:18 07:32 08:45 Temperature 97.7 F Pulse Rate 102 H 84 Respiratory 18 20 24 Rate Blood Pressure 103/63 O2 Sat by Pulse 96 96 95 Oximetry 05/17/24 05/17/24 05/17/24 09:30 10:18 11:28 Temperature Pulse Rate 79 75 80 Respiratory 15 20 20 Rate Blood Pressure 104/67 105/73 117/76 O2 Sat by Pulse 94 L 96 99 Oximetry Medical Decision Making - Medical Decision Making Was pt. sent in by a medical professional or institution (, PA, WASTE BALER, urgent care, hospital, or senior living...) When possible be specific @ -No Did you speak to anyone other than the patient for history (EMS, parent, family, police, friend...)? What history was obtained from this source @ -No Did you review nursing and triage notes (agree or disagree)? Why? @ -I reviewed and agree with nursing and triage notes Were old charts reviewed (outside hosp., previous admission, EMS record, old EK G, old radiological studies, urgent care reports/EKG's, senior living records)? Report findings @ -Reviewed paperwork from nursing facility as well as daio Shay from recent UTI which showed heavy resistance to many antibiotics. Patient was on vancomycin as well as oral Cipro outpatient. Differential Diagnosis (chest pain, altered mental status, abdominal pain women, abdominal pain men, vaginal bleeding, weakness, fever, dyspnea, syncope, headache, dizziness, GI bleed, back pain, seizure, CVA, palpatations, mental health, musculoskeletal)? @ -Differential Altered Mental Status: Hypoglycemia, DKA, hypercapnia, ETOH, overdose, CO poisoning, trauma, myxedema coma, HTN encephalopathy, infection, encephalitis, psychosis, intercranial hemorrhage, hepatic encephalopathy, meningitis, CVA, this is not meant to be an all-inclusive list EKG interpreted by me (3pts min.). @ -As above X-rays interpreted by me (1pt min.). @ -Chest x-ray reveals possible right basilar infiltrate versus atelectasis CT interpreted by me (1pt min.). @ -CT brain revealed no obvious acute intracranial process. CT abdomen/pelvis negative for any obvious acute intra-abdominal process. Llanes catheter is in place with hydronephrosis as well as bladder wall thickening. U/S interpreted by me (1pt. min.). @ -None done What testing was considered but not performed or refused? (CT, X-rays, U/S, labs)? Why? @ -None What meds were considered but not given or refused? Why? @ -None Did you discuss the management of the patient with other professionals (professionals i.e. , PA, WASTE BALER, lab, RT, psych nurse, social professionals, gi tech, teacher, aerospace engineer officer armament, case maker)? Give summary @ -Discussed with admitting provider, Dr. Lockhart who accepted the admission. Was smoking cessation discussed for >3mins.? @ -No Was critical care preformed (if so, how long)? @ -No Were there social determinants of health that impacted care today? How? (Homelessness, low income, unemployed, alcoholism, drug addiction, transportation, low edu. Level, literacy, decrease access to med. care, snf, rehab)? @ -No Was there de-escalation of care discussed even if they declined (Discuss DNR or withdrawal of care, Hospice)? DNR status @ -No What co-morbidities impacted this encounter? (DM, HTN, Smoking, COPD, CAD, Can cer, CVA, ARF, Chemo, Hep., AIDS, mental health diagnosis, sleep apnea, morbid obesity)? @ -None Was patient admitted / discharged? Hospital course, mention meds given and route, prescriptions, significant lab abnormalities, going to OR and other pertinent info. @ -Patient presents altered, with what I expect to be from worsening infection. Vital signs are within acceptable limits. No fevers. Patient will receive IV fluid boluses, and we will place the patient on vancomycin and based on the microbio gram, meropenem as well. There is concern that the PICC line may not have been working and is somewhat dependent on position. Patient administered IV Tylenol as well. She was given fentanyl for abdominal pain. Llanes catheter placed. Laboratory studies returned remarkable for mild leukocytosis of 11.1. Patient has a UTI based on urinalysis. Patient is also RSV positive. Imaging re markable for possible right basilar pneumonia as well as evidence of mild urinary retention with mild hydroureter and mild hydronephrosis with Llanes catheter in place. On reevaluation, patient is more comfortable but still confused. She will be admitted at this time and we will continue IV antibiotics. I discussed with the admitting provider, Dr. Lockhart who accepted the admission. Consult placed to infectious disease. Undiagnosed new problem with uncertain prognosis? @ -No Drug Therapy requiring intensive monitoring for toxicity (Heparin, Nitro, Insulin, Cardizem)? @ -No Were any procedures done? @ -No Diagnosis/symptom? @ -Altered mental status likely secondary to urinary tract infection, possible early pneumonia with RSV bronchiolitis Acute, or Chronic, or Acute on Chronic? @ -Acute Uncomplicated (without systemic symptoms) or Complicated (systemic symptoms)? @ -Complicated Side effects of treatment? @ -No Exacerbation, Progression, or Severe Exacerbation? @ -No Poses a threat to life or bodily function? How? (Chest pain, [place], [place], pneumonia, PE, COPD, DKA, ARF, appy, cholecystitis, CVA, Diverticulitis, Homicidal, Suicidal, threat to staff... and all critical care pts) @ -Yes - Lab Data Result diagrams: 05/17/24 08:18 05/17/24 08:18 Lab Results 05/17/24 05/17/24 05/17/24 Range/Units 08:18 08:18 08:18 WBC 11.1 H (3.8-10.6) k/uL RBC 5.04 (3.80-5.40) m/uL Hgb 12.4 (11.4-16.0) gm/dL Hct 39.6 (34.0-46.0) % MCV 78.6 L (80.0-100.0) fL MCH 24.6 L (25.0-35.0) pg MCHC 31.3 (31.0-37.0) g/dL RDW 16.2 H (11.5-15.5) % Plt Count 568 H (150-450) k/uL MPV 7.4 Neutrophils % 68 % Lymphocytes % 19 % Monocytes % 9 % Eosinophils % 1 % Basophils % 1 % Neutrophils # 7.6 (1.3-7.7) k/uL Lymphocytes # 2.1 (1.0-4.8) k/uL Monocytes # 1.0 (0-1.0) k/uL Eosinophils # 0.1 (0-0.7) k/uL Basophils # 0.1 (0-0.2) k/uL Hypochromasia Slight Poikilocytosis Slight Anisocytosis Slight Microcytosis Slight PT 11.5 (10.0-12.5) sec INR 1.0 (<1.2) APTT 22.7 (22.0-30.0) sec VBG pH (7.31-7.41) VBG pCO2 (37-51) mmHg VBG HCO3 (24-28) mmol/L Sodium (137-145) mmol/L Potassium (3.5-5.1) mmol/L Chloride (98-107) mmol/L Carbon Dioxide (22-30) mmol/L Anion Gap mmol/L BUN (7-17) mg/dL Creatinine (0.52-1.04) mg/dL Est GFR (CKD-EPI)AfAm (>60 ml/min/1.73 sqM) Est GFR (CKD-EPI)NonAf (>60 ml/min/1.73 sqM) Glucose (74-99) mg/dL POC Glucose (mg/dL) (70-110) mg/dL POC Glu Sock Turner ID Plasma Lactic Acid Paresh (0.7-2.0) mmol/L Calcium (8.4-10.2) mg/dL Total Bilirubin (0.2-1.3) mg/dL AST (14-36) U/L ALT (4-34) U/L Alkaline Phosphatase (38-126) U/L Ammonia (<30) umol/L Total Protein (6.3-8.2) g/dL Albumin (3.5-5.0) g/dL Urine Color Yellow Urine Appearance Turbid H (Clear) Urine pH 6.0 (5.0-8.0) Ur Specific [place] 1.019 (1.001-1.035) Urine Protein 1+ H (Negative) Urine Glucose (UA) Negative (Negative) Urine Ketones Negative (Negative) Urine Blood Moderate H (Negative) Urine Nitrite Negative (Negative) Urine Bilirubin Negative (Negative) Urine Urobilinogen <2.0 (<2.0) mg/dL Ur Leukocyte Esterase Large H (Negative) Urine RBC >182 H (0-5) /hpf Urine WBC >182 H (0-5) /hpf Urine WBC Clumps Many H (None) /hpf Urine Bacteria Few H (None) /hpf Urine Mucus Few H (None) /hpf Urine Opiates Screen Not Detected (NotDetected) Ur Oxycodone Screen Detected H (NotDetected) Urine Methadone Screen Not Detected (NotDetected) Ur Barbiturates Screen Not Detected (NotDetected) U Tricyclic Antidepress Detected H (NotDetected) Ur Phencyclidine Scrn Not Detected (NotDetected) Ur Amphetamines Screen Not Detected (NotDetected) U Methamphetamines Scrn Not Detected (NotDetected) U Benzodiazepines Scrn Not Detected (NotDetected) Urine Cocaine Screen Not Detected (NotDetected) U Marijuana (THC) Screen Not Detected (NotDetected) Serum Alcohol mg/dL Influenza Type A (PCR) (Not Detectd) Influenza Type B (PCR) (Not Detectd) RSV (PCR) (Not Detectd) SARS-CoV-2 (PCR) (Not Detectd) 05/17/24 05/17/24 05/17/24 Range/Units 08:18 08:18 08:18 WBC (3.8-10.6) k/uL RBC (3.80-5.40) m/uL Hgb (11.4-16.0) gm/dL Hct (34.0-46.0) % MCV (80.0-100.0) fL MCH (25.0-35.0) pg MCHC (31.0-37.0) g/dL RDW (11.5-15.5) % Plt Count (150-450) k/uL MPV Neutrophils % % Lymphocytes % % Monocytes % % Eosinophils % % Basophils % % Neutrophils # (1.3-7.7) k/uL Lymphocytes # (1.0-4.8) k/uL Monocytes # (0-1.0) k/uL Eosinophils # (0-0.7) k/uL Basophils # (0-0.2) k/uL Hypochromasia Poikilocytosis Anisocytosis Microcytosis PT (10.0-12.5) sec INR (<1.2) APTT (22.0-30.0) sec VBG pH (7.31-7.41) VBG pCO2 (37-51) mmHg VBG HCO3 (24-28) mmol/L Sodium 143 (137-145) mmol/L Potassium 4.3 (3.5-5.1) mmol/L Chloride 114 H (98-107) mmol/L Carbon Dioxide 17 L (22-30) mmol/L Anion Gap 12 mmol/L BUN 25 H (7-17) mg/dL Creatinine 0.78 (0.52-1.04) mg/dL Est GFR (CKD-EPI)AfAm >90 (>60 ml/min/1.73 sqM) Est GFR (CKD-EPI)NonAf 80 (>60 ml/min/1.73 sqM) Glucose 117 H (74-99) mg/dL POC Glucose (mg/dL) (70-110) mg/dL POC Glu Sock Turner ID Plasma Lactic Acid Paresh 1.8 (0.7-2.0) mmol/L Calcium 9.5 (8.4-10.2) mg/dL Total Bilirubin 0.8 (0.2-1.3) mg/dL AST 118 H (14-36) U/L ALT 83 H (4-34) U/L Alkaline Phosphatase 137 H (38-126) U/L Ammonia 11 (<30) umol/L Total Protein 7.9 (6.3-8.2) g/dL Albumin 3.2 L (3.5-5.0) g/dL Urine Color Urine Appearance (Clear) Urine pH (5.0-8.0) Ur Specific [place] (1.001-1.035) Urine Protein (Negative) Urine Glucose (UA) (Negative) Urine Ketones (Negative) Urine Blood (Negative) Urine Nitrite (Negative) Urine Bilirubin (Negative) Urine Urobilinogen (<2.0) mg/dL Ur Leukocyte Esterase (Negative) Urine RBC (0-5) /hpf Urine WBC (0-5) /hpf Urine WBC Clumps (None) /hpf Urine Bacteria (None) /hpf Urine Mucus (None) /hpf Urine Opiates Screen (NotDetected) Ur Oxycodone Screen (NotDetected) Urine Methadone Screen (NotDetected) Ur Barbiturates Screen (NotDetected) U Tricyclic Antidepress (NotDetected) Ur Phencyclidine Scrn (NotDetected) Ur Amphetamines Screen (NotDetected) U Methamphetamines Scrn (NotDetected) U Benzodiazepines Scrn (NotDetected) Urine Cocaine Screen (NotDetected) U Marijuana (THC) Screen (NotDetected) Serum Alcohol <10 mg/dL Influenza Type A (PCR) Not Detected (Not Detectd) Influenza Type B (PCR) Not Detected (Not Detectd) RSV (PCR) Detected A (Not Detectd) SARS-CoV-2 (PCR) Not Detected (Not Detectd) 05/17/24 05/17/24 Range/Units 08:32 09:11 WBC (3.8-10.6) k/uL RBC (3.80-5.40) m/uL Hgb (11.4-16.0) gm/dL Hct (34.0-46.0) % MCV (80.0-100.0) fL MCH (25.0-35.0) pg MCHC (31.0-37.0) g/dL RDW (11.5-15.5) % Plt Count (150-450) k/uL MPV Neutrophils % % Lymphocytes % % Monocytes % % Eosinophils % % Basophils % % Neutrophils # (1.3-7.7) k/uL Lymphocytes # (1.0-4.8) k/uL Monocytes # (0-1.0) k/uL Eosinophils # (0-0.7) k/uL Basophils # (0-0.2) k/uL Hypochromasia Poikilocytosis Anisocytosis Microcytosis PT (10.0-12.5) sec INR (<1.2) APTT (22.0-30.0) sec VBG pH 7.49 H (7.31-7.41) VBG pCO2 24 L (37-51) mmHg VBG HCO3 18 L (24-28) mmol/L Sodium (137-145) mmol/L Potassium (3.5-5.1) mmol/L Chloride (98-107) mmol/L Carbon Dioxide (22-30) mmol/L Anion Gap mmol/L BUN (7-17) mg/dL Creatinine (0.52-1.04) mg/dL Est GFR (CKD-EPI)AfAm (>60 ml/min/1.73 sqM) Est GFR (CKD-EPI)NonAf (>60 ml/min/1.73 sqM) Glucose (74-99) mg/dL POC Glucose (mg/dL) 106 (70-110) mg/dL POC Glu Sock Turner ID June Plasma Lactic Acid Paresh (0.7-2.0) mmol/L Calcium (8.4-10.2) mg/dL Total Bilirubin (0.2-1.3) mg/dL AST (14-36) U/L ALT (4-34) U/L Alkaline Phosphatase (38-126) U/L Ammonia (<30) umol/L Total Protein (6.3-8.2) g/dL Albumin (3.5-5.0) g/dL Urine Color Urine Appearance (Clear) Urine pH (5.0-8.0) Ur Specific [place] (1.001-1.035) Urine Protein (Negative) Urine Glucose (UA) (Negative) Urine Ketones (Negative) Urine Blood (Negative) Urine Nitrite (Negative) Urine Bilirubin (Negative) Urine Urobilinogen (<2.0) mg/dL Ur Leukocyte Esterase (Negative) Urine RBC (0-5) /hpf Urine WBC (0-5) /hpf Urine WBC Clumps (None) /hpf Urine Bacteria (None) /hpf Urine Mucus (None) /hpf Urine Opiates Screen (NotDetected) Ur Oxycodone Screen (NotDetected) Urine Methadone Screen (NotDetected) Ur Barbiturates Screen (NotDetected) U Tricyclic Antidepress (NotDetected) Ur Phencyclidine Scrn (NotDetected) Ur Amphetamines Screen (NotDetected) U Methamphetamines Scrn (NotDetected) U Benzodiazepines Scrn (NotDetected) Urine Cocaine Screen (NotDetected) U Marijuana (THC) Screen (NotDetected) Serum Alcohol mg/dL Influenza Type A (PCR) (Not Detectd) Influenza Type B (PCR) (Not Detectd) RSV (PCR) (Not Detectd) SARS-CoV-2 (PCR) (Not Detectd) - EKG Data -: EKG Interpreted by Me EKG Comments: 12-lead Electrocardiogram Interpretation Note EKG was reviewed and interpreted by myself. 12-lead ECG performed at 0734 is interpreted by me as revealing normal sinus rhythm at a rate of 93 beats per minute. [place] is normal. OR interval is 167 ms, QRS duration is 81 ms, QTc is 417 ms.. There were no ST or T wave abnormalities to suggest myocardial ischemia or injury. R wave progression across the precordium was satisfactory. By my interpretation this EKG is non-diagnostic for acute ischemia. Disposition Clinical Impression: Altered mental status, UTI (urinary tract infection), RSV bronchiolitis, Pneumonia Disposition: ADMITTED IP TO THIS HOSP Condition: Stable Time of Disposition: 11:26
[2024-05-17] MEDS: fentaNYL (PF) 50 MCG/ML 2 ML AMP IVP STA (08:22)
[2024-05-17 08:27] LABS: Anisocytosis Slight; Basophils # (A) 0.1 k/uL (0-0.2); Basophils % (A) 1 %; Eosinophils # (A) 0.1 k/uL (0-0.7); Eosinophils % (A) 1 %; HCT 39.6 % (34.0-46.0); HGB 12.4 gm/dL (11.4-16.0); Hypochromasia Slight; Lymphocytes # (A) 2.1 k/uL (1.0-4.8); Lymphocytes % (A) 19 %; MCH 24.6 pg (25.0-35.0); MCHC 31.3 g/dL (31.0-37.0); MCV 78.6 fL (80.0-100.0); Mean Platelet Volume 7.4; Microcytosis Slight; Monocytes % (A) 9 %; Neutrophils # (A) 7.6 k/uL (1.3-7.7); Neutrophils % (A) 68 %; Platelet Count 568 k/uL (150-450); Poikilocytosis Slight; RBC 5.04 m/uL (3.80-5.40); RDW 16.2 % (11.5-15.5); WBC 11.1 k/uL (3.8-10.6)
[2024-05-17 08:34] LABS: Glucose,Whole Blood 106 mg/dL (70-110)
[2024-05-17 08:37] LABS: ALT 83 U/L (4-34); African American GFR (CKD) >90 (>60 ml/min/1.73 sqM); Albumin 3.2 g/dL (3.5-5.0); Alcohol <10 mg/dL; Anion Gap 12 mmol/L; Blood Urea Nitrogen 25 mg/dL (7-17); Calcium 9.5 mg/dL (8.4-10.2); Carbon Dioxide 17 mmol/L (22-30); Chloride 114 mmol/L (98-107); Glucose 117 mg/dL (74-99); Non-African American GFR(CKD) 80 (>60 ml/min/1.73 sqM); Sodium 143 mmol/L (137-145); Total Bilirubin 0.8 mg/dL (0.2-1.3); Total Protein 7.9 g/dL (6.3-8.2)
[2024-05-17 08:38] LABS: Lactic Acid, Venous 1.8 mmol/L (0.7-2.0)
[2024-05-17 08:39] LABS: Partial Thromboplastin Time 22.7 sec (22.0-30.0); Prothrombin Time 11.5 sec (10.0-12.5)
[2024-05-17] MEDS: LACTATED RINGERS 1,000 ML IV SCH ×2 (08:45→11:47)
[2024-05-17] MEDS: VANCOMYCIN 1,250 MG in SODIUM CHLORIDE 0.9% 250 ML IVPB STA (08:45)
[2024-05-17] MEDS: ACETAMINOPHEN IV (For NPO) 1,000 MG in EMPTY BAG 1 BAG IVPB STA (08:46)
[2024-05-17 08:51] LABS: AST 118 U/L (14-36); Alkaline Phosphatase 137 U/L (38-126); Potassium 4.3 mmol/L (3.5-5.1)
[2024-05-17 09:19] LABS: Appearance,Urine Turbid (Clear); Bacteria,Urine Few /hpf; Bilirubin,Urine Negative (Negative); Blood,Urine Moderate (Negative); Color,Urine Yellow; Glucose,Urine (UA) Negative (Negative); Ketones,Urine Negative (Negative); Leukocyte Esterase,Urine Large (Negative); Mucus,Urine Few /hpf; Nitrite,Urine Negative (Negative); Protein,Urine 1+ (Negative); RBC,Urine >182 /hpf (0-5); Specific Gravity,Urine 1.019 (1.001-1.035); Urobilinogen,Urine <2.0 mg/dL (<2.0); WBC,Urine >182 /hpf (0-5)
[2024-05-17 09:24] LABS: VBG PH 7.49 (7.31-7.41)
[2024-05-17 09:25] LABS: Amphetamine Screen,Urine Not Detected (NotDetected); Barbiturate Screen,Urine Not Detected (NotDetected); Benzodiazepines Screen,Urine Not Detected (NotDetected); Cocaine Screen,Urine Not Detected (NotDetected); Methadone Screen, Urine Not Detected (NotDetected); Opiate Screen,Urine Not Detected (NotDetected); Oxycodone Screen, Urine Detected (NotDetected); Phencyclidine Screen,Urine Not Detected (NotDetected); Tricyclic Antidepressant,Urine Detected (NotDetected); Urn Cannabinoid Scrn Not Detected (NotDetected)
[2024-05-17 09:33] LABS: Influenza A Not Detected (Not Detectd); Influenza B Not Detected (Not Detectd); RSV Detected (Not Detectd)
--- NOTE | 2024-05-17 10:22 | XR ---
EXAMINATION TYPE: XR chest 2V DATE OF EXAM: 05/17/2024 CLINICAL INDICATION: Female, 63 years old with history of altered mental status, weakness. TECHNIQUE: Frontal and lateral views of the chest are obtained. COMPARISON: Chest x-ray December 15, 2021 FINDINGS: More prominent extensive surgical change of the thoracic spine is not well-seen. Surgical c hanges to the lower cervical spine is redemonstrated. Persistent mild cardiomegaly. More prominent ri ght suprahilar opacity. This correlates with chronic consolidation and/or scarring on CT May 09 4. There is new right basilar acute infiltrate and/or atelectasis and possible small right pleural ef fusion. Left lung remains clear. IMPRESSION: New right basilar acute infiltrate and/or atelectasis and possible small right pleural ef fusion. [facility], , 05/17/2024 10:19 AM
--- NOTE | 2024-05-17 10:31 | CT ---
EXAMINATION TYPE: CT brain wo con DATE OF EXAM: 05/17/2024 10:09 AM COMPARISON: None. CLINICAL INDICATION: Female, 63 years old with history of Altered mental status, ams TECHNIQUE: Brain: Axial CT images of the brain were obtained with coronal and sagittal reformats created and rev iewed. Contrast used: None. Oral contrast used: None. CT DLP: 2220.4 mGycm, Automated exposure control for dose reduction was used. FINDINGS: Brain: Extra-axial spaces: No abnormal extra-axial fluid collections. Ventricular system: Within normal limits Cerebral parenchyma: No acute intraparenchymal hemorrhage or mass effect. The christianson-white junction is well differentiated. Cerebellum: Unremarkable. Mass effect: No evidence of midline shift. Intracranial vasculature: Atherosclerotic calcifications of the intracranial vessels. Soft tissues: Normal. Calvarium/osseous structures: No depressed skull fracture. Paranasal sinuses and mastoid air cells: Moderate scattered paranasal sinus disease. Visualized orbits: Orbital contents are intact. IMPRESSION: Motion limited exam. No acute intracranial process. [facility], , 05/17/2024 10:28 AM
--- NOTE | 2024-05-17 10:40 | CT ---
EXAMINATION TYPE: CT abdomen pelvis w con DATE OF EXAM: 05/17/2024 10:08 AM COMPARISON: 03/20/2024 CLINICAL INDICATION: Female, 63 years old with history of abd pain; abdominal pain, ams TECHNIQUE: Axial CT abdomen pelvis w con;Sagittal and coronal reformats were created on a separate w orkstation. Contrast used:100 mL of Isovue 300 with IV Contrast, (none if empty) Oral contrast used: without Oral Contrast (none if empty) CT DLP: 1916.1 mGycm, Automated exposure control for dose reduction was used. FINDINGS: LOWER CHEST: The heart is mildly enlarged for size. ABDOMEN LIVER: Unremarkable GALLBLADDER AND BILE DUCTS: The gallbladder is surgically absent. PANCREAS: Unremarkable. SPLEEN: Unremarkable. ADRENAL GLANDS: Unremarkable. KIDNEYS AND URETERS: Mild bilateral hydronephrosis with hydroureter. Nonobstructing bilateral renal c alculi measuring up to 3 mm. PELVIS BLADDER: Circumferential bladder wall thickening and a nondistended bladder with Llanes catheter in pl ching. There is mild hyperemia. REPRODUCTIVE: The uterus is surgically absent. ABDOMEN & PELVIS STOMACH AND BOWEL: No evidence of bowel obstruction. PERITONEUM/RETROPERITONEUM: No evidence of pneumoperitoneum or free fluid. VASCULATURE: Severe atherosclerotic calcifications are present throughout the abdominal aorta and its branches. No evidence of aortic aneurysm. MUSCULOSKELETAL: No acute osseous abnormalities, fixation hardware in the spine at L4-L5 and S1 appea rs intact. Grade 1 anterolisthesis of L3 on L4. Fixation hardware in the lower thoracic spine appears intact. LYMPH NODES: No gross evidence for lymphadenopathy. SOFT TISSUE/ABDOMINAL WALL: Unremarkable IMPRESSION: 1. Llanes catheter in place with decompression and bladder with wall thickening and hyperemia with bi lateral hydronephrosis. Correlate for infection with urinalysis. 2. Mild cardiomegaly. 3. Extensive surgical changes in the spine appear intact. 4. Grade 1 anterolisthesis of L3 on L4. 5. Bilateral nonobstructing renal calculi. [facility], , 05/17/2024 10:37 AM
[2024-05-17] MEDS: LEVOFLOXACIN 500MG-D5W PMX 500 MG in DEXTROSE/WATER 1 100ML.BAG IVPB STA (11:05)
[2024-05-17] MEDS ORDERED: NALOXONE 0.4 MG/ML 1 ML VIAL IV PRN (11:19)
[2024-05-17] MEDS: MEROPENEM 2 GM in SODIUM CHLORIDE 0.9% 100 ML IVPB ONE (11:35)
[2024-05-17] MEDS: MORPHINE SULFATE 2 MG/ML SYRINGE IVP PRN (15:08)
[2024-05-17] MEDS: HEPARIN SODIUM,PORCINE 5,000 UNIT/ML 1 ML VIAL SQ SCH (16:11)
--- NOTE | 2024-05-17 18:16 | P.HPIM ---
History of Present Illness H&P Date: 05/17/24 Chief Complaint: Altered mental status 63-year-old female transferred from her nursing facility for concern for altered mental status, in the setting of a UTI that is being treated with IV antibiotics via PICC line. Patient is ANO x 1-2 at this time. Is moaning in pain due to abdominal discomfort. No significant history obtained from EMS and/or nursing staff otherwise. 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 Recurrent UTIs. Presents for further evaluation at this time. Blood work completed in ED reveals a WBC of 11.1, hemoglobin of 12.4 and platelet count of 568, sodium of 143, potassium 4.3, BUNs/creatinine of 25/0.78, AST elevated at 18 with ALT of 83, UA is positive for blood, large leukocyte esterase, many WBCs and bacteria Urine drug screen is positive for oxycodone and tricyclic antidepressants Viral screen is positive for RSV PCR; influenza A and B PCR is negative; COVID- [address] of the abdomen and pelvis reveals bladder wall thickening with bilateral hydronephrosis, bilateral nonobstructing renal calculi CT of the brain is negative for any acute intracranial abnormality Chest x-ray reveals new right basilar acute infiltrate with small right-sided pleural effusion Review of Systems ROS unobtainable: due to mental status Past Medical History Past Medical History: Cancer, Hearing Disorder / Deafness Additional Past Medical History / Comment(s): back pain; "several tia's-Last TIA 1 1/2 YEARS AGO, pluerisy, migraines, past falls, "was told at [facility] she had non-alcoholic cirrhosis". lung cancer History of Any Multi-Drug Resistant Organisms: None Reported Past Surgical History: Back Surgery, Breast Surgery, Hysterectomy Additional Past Surgical History / Comment(s): back sx, neck sx. spleenectomy- d/t injury; benign R Breast lumpectomy, sinus sx Past Anesthesia/Blood Transfusion Reactions: No Reported Reaction Additional Past Anesthesia/Blood Transfusion Reaction / Comment(s): Pt hs clausterphobia Past Psychological History: Depression Smoking Status: Current some day smoker Past Alcohol Use History: None Reported Past Drug Use History: None Reported - Past Family History Mother Family Medical History: Cancer Additional Family Medical History / Comment(s): Father History Unknown: Yes Family Medical History: No Reported History Additional Family Medical History / Comment(s): Father was murdered Medications and Allergies Home Medications Medication Instructions Recorded Confirmed Type Atorvastatin [Lipitor] 80 mg PO HS@209903/21/24 05/17/24 History DULoxetine HCL [Cymbalta] 60 mg PO DAILY@0900 03/21/24 05/17/24 History Fluticasone Propion/Salmeterol 1 puff INHALATION RT-BID@09,209903/21/24 05/17/24 History [Fluticasone-Salmeterol 250-50] Gabapentin [Neurontin] 300 mg PO Q8HR@0600,1400,2200 03/21/24 05/17/24 History Metoprolol Tartrate [Lopressor] 25 mg PO BID@0900,209903/21/24 05/17/24 History Ondansetron [Zofran] 4 mg PO Q6H PRN 03/21/24 05/17/24 History Acetaminophen Tab [Tylenol] 325 mg PO Q6HR PRN 05/17/24 05/17/24 History Baclofen [Lioresal] 10 mg PO TID@0900,1300,209905/17/24 05/17/24 History Calcium Carbonate/Vitamin D3 1 tab PO DAILY@89905/17/24 05/17/24 History [Calcium 600 mg-Vit D3 10 mcg (400 Unit)] Cetirizine HCl [Zyrtec] 10 mg PO HS@209905/17/24 05/17/24 History Collagenase [Santyl Ointment] 1 applic TOPICAL DAILY PRN 05/17/24 05/17/24 History Collagenase [Santyl Ointment] 1 applic TOPICAL HS 05/17/24 05/17/24 History Cyclobenzaprine [Flexeril] 10 mg PO HS@209905/17/24 05/17/24 History Ensure Clear 1 can PO BID@0900,209905/17/24 05/17/24 History Hydrophilic Cream [Triad (Kerodex 1 applic TOPICAL MOWEFR@209905/17/24 05/17/24 History geq)] Mag Hydrox/Aluminum Hyd/Simeth 30 ml PO Q6H PRN 05/17/24 05/17/24 History [Mylanta Maximum Strength Liq] Potassium Chloride ER [K-Dur 20] 20 meq PO BID@0900,2100 05/17/24 05/17/24 His tory modafiniL 100 mg PO DAILY@0900 05/17/24 05/17/24 History oxyCODONE HCL [Roxicodone] 5 mg PO Q4H PRN 05/17/24 05/17/24 History Allergies Allergy/AdvReac Type Severity Reaction Status Date / Time gentamicin Allergy Anaphylaxis Verified 05/17/24 09:43 Physical Exam Vitals: Vital Signs Temp Pulse Resp BP Pulse Ox 05/17/24 11:28 80 20 117/76 99 05/17/24 10:18 75 20 105/73 96 05/17/24 09:30 79 15 104/67 94 L 05/17/24 08:45 84 24 103/63 95 05/17/24 07:32 97.7 F 20 96 05/17/24 07:18 102 H 18 96 Intake and Output 05/16/24 05/17/24 05/17/24 22:59 06:59 14:59 Other: Weight 63.503 kg General: Appears in mild distress. Appears uncomfortable. HEAD: Normal with no signs of head trauma. EYES: PERRLA, EOMI, conjunctiva normal, no discharge. Pupils 3 mm and equal bilaterally. ENT: Hearing grossly intact, normal oropharynx. RESPIRATORY: Clear breath sounds bilaterally. No wheezes, rales, or rhonchi. C/V: Regular rate and rhythm. S1 and S2 auscultated, no edema, peripheral pulses 2+ and intact throughout ABD: Abdomen soft, nondistended. No focal tenderness to palpation. No guarding or rebound tenderness. EXT: Normal range of motion, no obvious deformity SKIN: No rashes or lesions observed on exposed skin. NEURO: Alert and oriented x 1-2. History of paraplegia. Appears to be at her baseline in terms of extremity movement. No focal deficits. Results CBC & Chem 7: 05/17/24 08:18 05/17/24 08:18 Labs: Abnormal Lab Results - Last 24 Hours (Table) 05/17/24 05/17/24 05/17/24 Range/Units 08:18 08:18 08:18 WBC 11.1 H (3.8-10.6) k/uL MCV 78.6 L (80.0-100.0) fL MCH 24.6 L (25.0-35.0) pg RDW 16.2 H (11.5-15.5) % Plt Count 568 H (150-450) k/uL VBG pH (7.31-7.41) VBG pCO2 (37-51) mmHg VBG HCO3 (24-28) mmol/L Chloride 114 H (98-107) mmol/L Carbon Dioxide 17 L (22-30) mmol/L BUN 25 H (7-17) mg/dL Glucose 117 H (74-99) mg/dL AST 118 H (14-36) U/L ALT 83 H (4-34) U/L Alkaline Phosphatase 137 H (38-126) U/L Albumin 3.2 L (3.5-5.0) g/dL Urine Appearance Turbid H (Clear) Urine Protein 1+ H (Negative) Urine Blood Moderate H (Negative) Ur Leukocyte Esterase Large H (Negative) Urine RBC >182 H (0-5) /hpf Urine WBC >182 H (0-5) /hpf Urine WBC Clumps Many H (None) /hpf Urine Bacteria Few H (None) /hpf Urine Mucus Few H (None) /hpf Ur Oxycodone Screen Detected H (NotDetected) U Tricyclic Antidepress Detected H (NotDetected) RSV (PCR) (Not Detectd) 05/17/24 05/17/24 Range/Units 08:18 09:11 WBC (3.8-10.6) k/uL MCV (80.0-100.0) fL MCH (25.0-35.0) pg RDW (11.5-15.5) % Plt Count (150-450) k/uL VBG pH 7.49 H (7.31-7.41) VBG pCO2 24 L (37-51) mmHg VBG HCO3 18 L (24-28) mmol/L Chloride (98-107) mmol/L Carbon Dioxide (22-30) mmol/L BUN (7-17) mg/dL Glucose (74-99) mg/dL AST (14-36) U/L ALT (4-34) U/L Alkaline Phosphatase (38-126) U/L Albumin (3.5-5.0) g/dL Urine Appearance (Clear) Urine Protein (Negative) Urine Blood (Negative) Ur Leukocyte Esterase (Negative) Urine RBC (0-5) /hpf Urine WBC (0-5) /hpf Urine WBC Clumps (None) /hpf Urine Bacteria (None) /hpf Urine Mucus (None) /hpf Ur Oxycodone Screen (NotDetected) U Tricyclic Antidepress (NotDetected) RSV (PCR) Detected A (Not Detectd) Assessment and Plan Assessment: 1. Altered mental status; likely toxic metabolic encephalopathy related to pneumonia versus mild LESLIE versus RSV infection versus UTI 2. Healthcare associated pneumonia; patient has been placed on IV Merrem and vancomycin; we will continue with current antibiotics -Monitor CBC, CRP and procalcitonin; blood cultures and sputum culture -Consult ID 3. RSV viral infection; continue with supportive care 4. UTI; patient is currently on IV antibiotics via PICC line for UTI; we will wait for final culture results; continue with Merrem and vancomycin at this time 5. Hyperlipidemia; Lipitor 80 mg p.o. nightly 6. COPD/asthma; not in exacerbation; continue with home inhaler therapy 7. Hypertension; metoprolol 25 mg twice daily 8. Chronic pain/neuropathy; patient takes oxycodone 5 mg every 4 hours along with Neurontin 300 mg every 8 hours; will hold till mental status improves DVT prophylaxis; SCDs/subcu heparin CODE STATUS; full code
[2024-05-17] MEDS ORDERED: MEROPENEM 2 GM in SODIUM CHLORIDE 0.9% 100 ML IVPB SCH (19:00)
[2024-05-17] MEDS: SYMBICORT 80-4.5 MCG INHALER INHALATION SCH (20:30)
[2024-05-17] MEDS: MEROPENEM 1 GM in SODIUM CHLORIDE 0.9% 100 ML IVPB SCH (20:31)
[2024-05-17] MEDS: ATORVASTATIN 80 MG TAB PO SCH (20:32)
[2024-05-17] MEDS: ZINC OXIDE PASTE (Z-GUARD) 1 APPLIC TOPICAL PRN (20:32)
[2024-05-17] MEDS: POTASSIUM CHLORIDE ER 20 MEQ TAB.ER PO SCH (20:32)
[2024-05-17] MEDS: LORATADINE 10 MG TAB PO SCH (20:32)
[2024-05-17] MEDS: METOPROLOL TARTRATE 25 MG TAB PO SCH (20:32)
[2024-05-18] MEDS: VANCOMYCIN 1,250 MG in SODIUM CHLORIDE 0.9% 250 ML IVPB SCH (01:33)
[2024-05-18] MEDS: ACETAMINOPHEN TAB 325 MG TAB PO PRN (06:15)
[2024-05-18 09:30] LABS: Basophils # (A) 0.06 X 10*3/uL (0.00-0.10); Basophils % (A) 0.6 %; Eosinophils # (A) 0.32 X 10*3/uL (0.04-0.35); Eosinophils % (A) 3.2 %; HCT 34.9 % (37.2-46.3); HGB 10.9 g/dL (12.0-15.0); Lymphocytes # (A) 2.39 X 10*3/uL (0.90-5.00); MCH 24.6 pg (27.0-32.0); MCHC 31.2 g/dL (32.0-37.0); MCV 78.8 FL (80.0-97.0); Mean Platelet Volume 9.9 FL (9.5-12.2); Monocytes # (A) 1.42 X 10*3/uL (0.20-1.00); Monocytes % (A) 14.3 %; NRBC Per 100 WBC 0 X 10*3/uL (0.00-0.01); Neutrophils # (A) 5.67 X 10*3/uL (1.80-7.70); Neutrophils % (A) 57.1 %; Platelet Count 527 X 10*3/uL (140-440); RBC 4.43 X 10*6/uL (4.10-5.20); RDW 16.7 % (11.5-14.5); WBC 9.94 X 10*3/uL (4.50-10.00)
[2024-05-18] MEDS: DULoxetine HCL 60 MG CAPSULE.DR PO SCH (09:31)
[2024-05-18] MEDS: CALCIUM CARB-VIT D 500 MG-5 MCG TAB PO SCH (09:31)
[2024-05-18 09:34] LABS: ALT 73 U/L (8-44); AST 103 U/L (13-35); Albumin 2.6 g/dL (3.8-4.9); Albumin/Globulin Ratio 0.65 Ratio (1.60-3.17); Alkaline Phosphatase 113 U/L (41-126); Blood Urea Nitrogen 16.8 mg/dL (9.0-27.0); Calcium 8.6 mg/dL (8.7-10.3); Carbon Dioxide 19.9 mmol/L (21.6-31.8); Chloride 110 mmol/L (96-109); Glucose 80 mg/dL (70-110); Sodium 141 mmol/L (135-145); Total Bilirubin 0.4 mg/dL (0.3-1.2); Total Protein 6.6 g/dL (6.2-8.2)
--- NOTE | 2024-05-18 11:09 | P.CONS ---
History of Present Illness - Reason for Consult Consult date: 05/17/24 Recurrent UTI, possible pneumonia Requesting physician: Maximilian Radford - Chief Complaint Mental status changes x 1 day - History of Present Illness Patient is a 63-year-old female with multiple comorbidities including hypertension, chronic back pain status post surgery resulting in paraplegia depression did have a chronic lower extremity wound and was recently diagnosed with a left heel osteomyelitis culture positive for drug-resistant Pseudomonas and MRSA for the patient was discharged on daptomycin and meropenem patient subsequently developing a rash which was thought to be related to meropenem and meropenem was discontinued substituted with oral Cipro patient has not been sent to the hospital concerning for mental status changes and concern for UTI patient was moaning in pain and some abdominal discomfort as reported by the ER physician at time my evaluation the patient was afebrile patient has been moaning but did not provide any history no clear history of any nausea vomiting or any diarrhea has been reported or presentation to hospital patient was afebrile no fever have been called subsequently patient was nontachycardic mildly hypertensive but no pressor support hypoxic on 2 L current oxygen patient did have a white count of 11.1 creatinine 0.78 liver isms mildly elevated urine has been positive RSV tested positive patient did have a chest x-ray new right basilar acute infiltrate and or atelectasis patient has been admitted to the hospital started on meropenem and vancomycin infectious disease was consulted for further management of antibiotic therapy also received dose of Levaquin in the most information has been obtained from review the chart and the patient was not a reliable historian Review of Systems Positive points has been mentioned in HPI complete review could not be obtained because of his underlying mental status Past Medical History Past Medical History: Cancer, Hearing Disorder / Deafness Additional Past Medical History / Comment(s): back pain; "several tia's-Last TIA 1 1/2 YEARS AGO, pluerisy, migraines, past falls, "was told at [facility] she had non-alcoholic cirrhosis". lung cancer History of Any Multi-Drug Resistant Organisms: None Reported Past Surgical History: Back Surgery, Breast Surgery, Hysterectomy Additional Past Surgical History / Comment(s): back sx, neck sx. spleenectomy- d/t injury; benign R Breast lumpectomy, sinus sx Past Anesthesia/Blood Transfusion Reactions: No Reported Reaction Additional Past Anesthesia/Blood Transfusion Reaction / Comm: Pt hs clausterphob ia Past Psychological History: Depression Smoking Status: Current some day smoker Past Alcohol Use History: None Reported Past Drug Use History: None Reported - Past Family History Mother Family Medical History: Cancer Additional Family Medical History / Comment(s): Father History Unknown: Yes Family Medical History: No Reported History Additional Family Medical History / Comment(s): Father was murdered Medications and Allergies Home Medications Medication Instructions Recorded Confirmed Type Atorvastatin [Lipitor] 80 mg PO HS@209903/21/24 05/17/24 History DULoxetine HCL [Cymbalta] 60 mg PO DAILY@0903/21/24 05/17/24 History Fluticasone Propion/Salmeterol 1 puff INHALATION RT-BID@899,209903/21/24 05/17/24 History [Fluticasone-Salmeterol 250-50] Gabapentin [Neurontin] 300 mg PO Q8HR@0600,1400,2200 03/21/24 05/17/24 History Metoprolol Tartrate [Lopressor] 25 mg PO BID@0900,209903/21/24 05/17/24 History Ondansetron [Zofran] 4 mg PO Q6H PRN 03/21/24 05/17/24 History Acetaminophen Tab [Tylenol] 325 mg PO Q6HR PRN 05/17/24 05/17/24 History Baclofen [Lioresal] 10 mg PO TID@0900,1300,209905/17/24 05/17/24 History Calcium Carbonate/Vitamin D3 1 tab PO DAILY@0900 05/17/24 05/17/24 History [Calcium 600 mg-Vit D3 10 mcg (400 Unit)] Cetirizine HCl [Zyrtec] 10 mg PO HS@209905/17/24 05/17/24 History Collagenase [Santyl Ointment] 1 applic TOPICAL DAILY PRN 05/17/24 05/17/24 History Collagenase [Santyl Ointment] 1 applic TOPICAL HS 05/17/24 05/17/24 History Cyclobenzaprine [Flexeril] 10 mg PO HS@209905/17/24 05/17/24 History Ensure Clear 1 can PO BID@0900,209905/17/24 05/17/24 History Hydrophilic Cream [Triad (Kerodex 1 applic TOPICAL MOWEFR@2100 05/17/24 05/17/24 History geq)] Mag Hydrox/Aluminum Hyd/Simeth 30 ml PO Q6H PRN 05/17/24 05/17/24 History [Mylanta Maximum Strength Liq] Potassium Chloride ER [K-Dur 20] 20 meq PO BID@0900,2100 05/17/24 05/17/24 History modafiniL 100 mg PO DAILY@0900 05/17/24 05/17/24 History oxyCODONE HCL [Roxicodone] 5 mg PO Q4H PRN 05/17/24 05/17/24 History Allergies Allergy/AdvReac Type Severity Reaction Status Date / Time gentamicin Allergy Anaphylaxis Verified 05/17/24 09:43 Physical Exam Vitals: Vital Signs Temp Pulse Resp BP Pulse Ox 05/17/24 11:28 80 20 117/76 99 05/17/24 10:18 75 20 105/73 96 05/17/24 09:30 79 15 104/67 94 L 05/17/24 08:45 84 24 103/63 95 05/17/24 07:32 97.7 F 20 96 05/17/24 07:18 102 H 18 96 Intake and Output 05/16/24 05/17/24 05/17/24 22:59 06:59 14:59 Other: Weight 63.503 kg GENERAL DESCRIPTION: Elderly female lying in bed, no distress. No tachypnea or accessory muscle of respiration use. HEENT: Shows Pallor , no scleral icterus. Oral mucous membrane is dry. NECK: Trachea central, no thyromegaly. LUNGS: Unlabored breathing. Clear to auscultation anteriorly. No wheeze or crackle. HEART: S1, S2, regular rate and rhythm. No loud murmur ABDOMEN: Soft, mild distention but no significant tenderness EXTREMITIES: Left foot is currently dressed SKIN: No rash, no masses palpable. NEUROLOGICAL: The patient is awake, but moaning orientation could not determine Results CBC & Chem 7: 05/18/24 04:25 05/18/24 04:17 Labs: Abnormal Lab Results - Last 24 Hours (Table) 05/17/24 05/17/24 05/17/24 Range/Units 08:18 08:18 08:18 WBC 11.1 H (3.8-10.6) k/uL MCV 78.6 L (80.0-100.0) fL MCH 24.6 L (25.0-35.0) pg RDW 16.2 H (11.5-15.5) % Plt Count 568 H (150-450) k/uL VBG pH (7.31-7.41) VBG pCO2 (37-51) mmHg VBG HCO3 (24-28) mmol/L Chloride 114 H (98-107) mmol/L Carbon Dioxide 17 L (22-30) mmol/L BUN 25 H (7-17) mg/dL Glucose 117 H (74-99) mg/dL AST 118 H (14-36) U/L ALT 83 H (4-34) U/L Alkaline Phosphatase 137 H (38-126) U/L Albumin 3.2 L (3.5-5.0) g/dL Urine Appearance Turbid H (Clear) Urine Protein 1+ H (Negative) Urine Blood Moderate H (Negative) Ur Leukocyte Esterase Large H (Negative) Urine RBC >182 H (0-5) /hpf Urine WBC >182 H (0-5) /hpf Urine WBC Clumps Many H (None) /hpf Urine Bacteria Few H (None) /hpf Urine Mucus Few H (None) /hpf Ur Oxycodone Screen Detected H (NotDetected) U Tricyclic Antidepress Detected H (NotDetected) RSV (PCR) (Not Detectd) 05/17/24 05/17/24 Range/Units 08:18 09:11 WBC (3.8-10.6) k/uL MCV (80.0-100.0) fL MCH (25.0-35.0) pg RDW (11.5-15.5) % Plt Count (150-450) k/uL VBG pH 7.49 H (7.31-7.41) VBG pCO2 24 L (37-51) mmHg VBG HCO3 18 L (24-28) mmol/L Chloride (98-107) mmol/L Carbon Dioxide (22-30) mmol/L BUN (7-17) mg/dL Glucose (74-99) mg/dL AST (14-36) U/L ALT (4-34) U/L Alkaline Phosphatase (38-126) U/L Albumin (3.5-5.0) g/dL Urine Appearance (Clear) Urine Protein (Negative) Urine Blood (Negative) Ur Leukocyte Esterase (Negative) Urine RBC (0-5) /hpf Urine WBC (0-5) /hpf Urine WBC Clumps (None) /hpf Urine Bacteria (None) /hpf Urine Mucus (None) /hpf Ur Oxycodone Screen (NotDetected) U Tricyclic Antidepress (NotDetected) RSV (PCR) Detected A (Not Detectd) Assessment and Plan (1) RSV bronchiolitis Current Visit: Yes Status: Acute Code(s): J21.0 - ACUTE BRONCHIOLITIS DUE TO RESPIRATORY SYNCYTIAL VIRUS SNOMED Code(s): 17934476 (2) UTI (urinary tract infection) Current Visit: Yes Status: Acute Code(s): N39.0 - URINARY TRACT INFECTION, SITE NOT SPECIFIED SNOMED Code(s): 17177507 Plan: 1patient presented to hospital with mental status changes confusion did have a positive UA elevated white count concerning for UTI likely limited gram-negative pathogen 2-patient also have a recent history of left heel osteomyelitis with the patient was at the end of completion of her antibiotic therapy with the previous culture positive for drug-resistant Pseudomonas and MRSA 3-patient also tested positive for RSV Chest x-ray concerning for acute right basilar infiltrate component of pneumonia not entirely excluded 4-blood urine culture routine results will be followed and antibiotic will adjust on the basis of this culture We will follow on clinical condition and cultures to further adjust medication if needed Thank you for this consultation we will follow the patient along with you Dictation was produced using [employer] dictation software. please excuse any grammatical, word or spelling errors. Time with Patient: Greater than 30
[2024-05-18] MEDS: modafiniL 100 MG TAB PO SCH (11:14)
--- NOTE | 2024-05-18 15:58 | P.PN ---
Subjective Progress Note Date: 05/18/24 63-year-old female transferred from her nursing facility for concern for altered mental status, in the setting of a UTI that is being treated with IV antibiotics via PICC line. Patient is ANO x 1-2 at this time. Is moaning in pain due to abdominal discomfort. No significant history obtained from EMS and/or nursing staff otherwise. 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 Recurrent UTIs. Presents for further evaluation at this time. Blood work completed in ED reveals a WBC of 11.1, hemoglobin of 12.4 and platelet count of 568, sodium of 143, potassium 4.3, BUNs/creatinine of 25/0.78, AST elevated at 18 with ALT of 83, UA is positive for blood, large leukocyte e sterase, many WBCs and bacteria Urine drug screen is positive for oxycodone and tricyclic antidepressants Viral screen is positive for RSV PCR; influenza A and B PCR is negative; COVID- [address] of the abdomen and pelvis reveals bladder wall thickening with bilateral hydronephrosis, bilateral nonobstructing renal calculi CT of the brain is negative for any acute intracranial abnormality Chest x-ray reveals new right basilar acute infiltrate with small right-sided pleural effusion Objective - Vital Signs Vital signs: Vital Signs Temp 97.3 F L 05/18/24 08:00 Pulse 73 05/18/24 08:00 Resp 19 05/18/24 08:00 BP 111/71 05/18/24 08:00 Pulse Ox 97 05/18/24 08:33 FiO2 Intake & Output 05/17/24 05/18/24 05/18/24 18:59 06:59 18:59 Output Total 800 425 Balance -800 -425 Weight 63.503 kg 63.503 kg Output: Urine 800 425 Other: Voiding Method Indwelling Catheter - Exam General: Appears in mild distress. Appears uncomfortable. HEAD: Normal with no signs of head trauma. EYES: PERRLA, EOMI, conjunctiva normal, no discharge. Pupils 3 mm and equal bilaterally. ENT: Hearing grossly intact, normal oropharynx. RESPIRATORY: Clear breath sounds bilaterally. No wheezes, rales, or rhonchi. C/V: Regular rate and rhythm. S1 and S2 auscultated, no edema, peripheral pulses 2+ and intact throughout ABD: Abdomen soft, nondistended. No focal tenderness to palpation. No guarding or rebound tenderness. EXT: Normal range of motion, no obvious deformity SKIN: No rashes or lesions observed on exposed skin. NEURO: Alert and oriented x 1-2. History of paraplegia. Appears to be at her baseline in terms of extremity movement. No focal deficits. - Labs CBC & Chem 7: 05/18/24 04:25 05/18/24 04:17 Labs: Abnormal Lab Results - Last 24 Hours (Table) 05/18/24 05/18/24 Range/Units 04:17 04:25 Hgb 10.9 L (12.0-15.0) g/dL Hct 34.9 L (37.2-46.3) % MCV 78.8 L (80.0-97.0) FL MCH 24.6 L (27.0-32.0) pg MCHC 31.2 L (32.0-37.0) g/dL RDW 16.7 H (11.5-14.5) % Plt Count 527 H (140-440) X 10*3/uL Immature Gran # 0.08 H (0.00-0.04) X 10*3/uL Monocytes # 1.42 H (0.20-1.00) X 10*3/uL Chloride 110 H (96-109) mmol/L Carbon Dioxide 19.9 L (21.6-31.8) mmol/L BUN/Creatinine Ratio 28.00 H (12.00-20.00) Ratio Calcium 8.6 L (8.7-10.3) mg/dL AST 103 H (13-35) U/L ALT 73 H (8-44) U/L C-Reactive Protein 3.70 H (0.00-0.80) mg/dL Albumin 2.6 L (3.8-4.9) g/dL Globulin 4.0 H (1.6-3.3) g/dL Albumin/Globulin Ratio 0.65 L (1.60-3.17) Ratio Assessment and Plan Assessment: 1. Altered mental status; likely toxic metabolic encephalopathy related to pneumonia versus mild LESLIE versus RSV infection versus UTI 2. Healthcare associated pneumonia; patient has been placed on IV Merrem and vancomycin; we will continue with current antibiotics -Monitor CBC, CRP and procalcitonin; blood cultures and sputum culture -Consult ID 3. RSV viral infection; continue with supportive care 4. UTI; patient is currently on IV antibiotics via PICC line for UTI; we will wait for final culture results; continue with Merrem and vancomycin at this time 5. Hyperlipidemia; Lipitor 80 mg p.o. nightly 6. COPD/asthma; not in exacerbation; continue with home inhaler therapy 7. Hypertension; metoprolol 25 mg twice daily 8. Chronic pain/neuropathy; patient takes oxycodone 5 mg every 4 hours along with Neurontin 300 mg every 8 hours; will hold till mental status improves DVT prophylaxis; SCDs/subcu heparin CODE STATUS; full code
--- NOTE | 2024-05-18 15:59 | P.PN ---
Subjective Progress Note Date: 05/18/24 Principal diagnosis: Reason for follow-up is UTI left heel ulcer Patient is a 63-year-old female with multiple comorbidities including hypertension, chronic back pain status post surgery resulting in paraplegia depression did have a chronic lower extremity wound and was recently diagnosed with a left heel osteomyelitis culture positive for drug-resistant Pseudomonas and MRSA patient has been brought to the hospital concerning for mental status changes and possible UTI. On today's evaluation that is 05/18/2024, patient did not have any fever and and seem to be slightly more awake today she is breathing comfortably on nasal oxygen no vomiting or diarrhea has been reported has developed a rash. Patient white count is 9.94 creatinine 0.6 blood cultures pending abdominal pelvis CT did shows bladder wall thickening hyperemia with bilateral hydronephrosis concerning for infection Objective - Vital Signs Vital signs: Vital Signs Temp 98.5 F 05/18/24 14:00 Pulse 69 05/18/24 14:00 Resp 17 05/18/24 14:00 BP 100/54 05/18/24 14:00 Pulse Ox 98 05/18/24 14:00 FiO2 Intake & Output 05/17/24 05/18/24 05/18/24 18:59 06:59 18:59 Intake Total 440 Output Total 087 627 9533 Balance -800 -425 -560 Weight 63.503 kg 63.503 kg Intake: Oral 440 Output: Urine 393 655 8373 Uretheral (Llanes) 1000 Other: Voiding Method Indwelling Catheter Indwelling Catheter # Bowel Movements 1 - Exam GENERAL DESCRIPTION: An elderly female lying in bed in no distress RESPIRATORY SYSTEM: Unlabored breathing , decreased breath sounds at bases HEART: S1 S2 regular rate and rhythm , ABDOMEN: Soft , no tenderness EXTREMITIES: Left heel ulcer with slough tissue stage III pressure ulcer patient also have a stage III pressure ulcer to sacral area with slough tissue but no significant redness or drainage - Labs CBC & Chem 7: 05/18/24 04:25 05/18/24 04:17 Labs: Abnormal Lab Results - Last 24 Hours (Table) 05/18/24 05/18/24 Range/Units 04:17 04:25 Hgb 10.9 L (12.0-15.0) g/dL Hct 34.9 L (37.2-46.3) % MCV 78.8 L (80.0-97.0) FL MCH 24.6 L (27.0-32.0) pg MCHC 31.2 L (32.0-37.0) g/dL RDW 16.7 H (11.5-14.5) % Plt Count 527 H (140-440) X 10*3/uL Immature Gran # 0.08 H (0.00-0.04) X 10*3/uL Monocytes # 1.42 H (0.20-1.00) X 10*3/uL Chloride 110 H (96-109) mmol/L Carbon Dioxide 19.9 L (21.6-31.8) mmol/L BUN/Creatinine Ratio 28.00 H (12.00-20.00) Ratio Calcium 8.6 L (8.7-10.3) mg/dL AST 103 H (13-35) U/L ALT 73 H (8-44) U/L C-Reactive Protein 3.70 H (0.00-0.80) mg/dL Albumin 2.6 L (3.8-4.9) g/dL Globulin 4.0 H (1.6-3.3) g/dL Albumin/Globulin Ratio 0.65 L (1.60-3.17) Ratio Microbiology - Last 24 Hours (Table) 05/17/24 08:18 Blood Culture - Preliminary Blood Assessment and Plan (1) RSV bronchiolitis Current Visit: Yes Status: Acute Code(s): J21.0 - ACUTE BRONCHIOLITIS DUE TO RESPIRATORY SYNCYTIAL VIRUS SNOMED Code(s): 56007162 (2) UTI (urinary tract infection) Current Visit: Yes Status: Acute Code(s): N39.0 - URINARY TRACT INFECTION, SITE NOT SPECIFIED SNOMED Code(s): 91240369 Plan: 1patient presented to hospital with mental status changes confusion did have a positive UA elevated white count concerning for UTI likely limited gram-negative pathogen 2-patient also have a recent history of left heel osteomyelitis with the patient was at the end of completion of her antibiotic therapy with the previous culture positive for drug-resistant Pseudomonas and MRSA 3-patient also tested positive for RSV Chest x-ray concerning for acute right basilar infiltrate component of pneumonia not entirely excluded 4- rash more likely due to meropenem which has been discontinued 5-patient has been started on Azactam while waiting for the urine culture to be finalized nursing staff to change the Llanes catheter 6-we will apply Medihoney to the left heel wound as well as a sacral wound and keep the edges of the pressure Dictation was produced using [employer] software. please excuse any grammatical, word or spelling errors. Time with Patient: Less than 30
[2024-05-18] MEDS: AZTREONAM 2 GM in SODIUM CHLORIDE 0.9% 100 ML IVPB SCH (17:05)
[2024-05-18] MEDS: diphenhydrAMINE 25 MG CAP PO PRN (17:13)
[2024-05-19] MEDS: ONDANSETRON 4 MG/2 ML VIAL IVP PRN (02:57)
[2024-05-19] MEDS ORDERED: VANCOMYCIN TROUGH DUE 1 EACH MISC MISCELLANE ONE (08:00)
[2024-05-19 08:50] LABS: African American GFR (CKD) >90 (>60 ml/min/1.73 sqM); Anion Gap 11 mmol/L; Blood Urea Nitrogen 14 mg/dL (7-17); C Reactive Protein 2.6 mg/dL (<1.0); Calcium 8.6 mg/dL (8.4-10.2); Carbon Dioxide 19 mmol/L (22-30); Chloride 108 mmol/L (98-107); Glucose 67 mg/dL (74-99); Non-African American GFR(CKD) >90 (>60 ml/min/1.73 sqM); Potassium 3.5 mmol/L (3.5-5.1); Sodium 138 mmol/L (137-145)
[2024-05-19 10:04] LABS: Anisocytosis Slight; Basophils # (A) 0.1 k/uL (0-0.2); Basophils % (A) 1 %; Eosinophils # (A) 0.4 k/uL (0-0.7); Eosinophils % (A) 3 %; HCT 36.8 % (34.0-46.0); HGB 11.4 gm/dL (11.4-16.0); Hypochromasia Slight; Lymphocytes % (A) 18 %; MCH 24.5 pg (25.0-35.0); MCHC 30.9 g/dL (31.0-37.0); MCV 79.2 fL (80.0-100.0); Mean Platelet Volume 8.1; Microcytosis Slight; Monocytes % (A) 9 %; Neutrophils # (A) 7.5 k/uL (1.3-7.7); Neutrophils % (A) 67 %; Platelet Count 541 k/uL (150-450); Poikilocytosis Slight; RBC 4.65 m/uL (3.80-5.40); RDW 16.4 % (11.5-15.5); WBC 11.2 k/uL (3.8-10.6)
--- NOTE | 2024-05-19 16:17 | P.PN ---
Subjective Progress Note Date: 05/19/24 Principal diagnosis: Reason for follow-up is UTI left heel ulcer Patient is a 63-year-old female with multiple comorbidities including hypertension, chronic back pain status post surgery resulting in paraplegia depression did have a chronic lower extremity wound and was recently diagnosed with a left heel osteomyelitis culture positive for drug-resistant Pseudomonas and MRSA patient has been brought to the hospital concerning for mental status changes and possible UTI. On today's evaluation that is 05/19/2024, Patient is afebrile patient is currently on 2 L nasal cannula oxygen and seem to be breathing more comfortably elevated good historian no vomiting diarrhea any changes reported by the nursing staff. Patient white count is 11.2 creatinine 0.43 blood cultures pending unfortunately no urine culture were done Objective - Vital Signs Vital signs: Vital Signs Temp 98.3 F 05/19/24 14:00 Pulse 81 05/19/24 14:00 Resp 19 05/19/24 14:00 BP 108/69 05/19/24 14:00 Pulse Ox 99 05/19/24 14:00 FiO2 Intake & Output 05/18/24 05/19/24 05/19/24 18:59 06:59 18:59 Intake Total 440 Output Total 1000 700 Balance -560 -700 Intake: Oral 440 Output: Urine 1000 700 Uretheral (Llanes) 1000 Other: Voiding Method Indwelling Catheter Indwelling Catheter Indwelling Catheter # Bowel Movements 1 1 1 - Exam GENERAL DESCRIPTION: An elderly female lying in bed in no distress RESPIRATORY SYSTEM: Unlabored breathing , decreased breath sounds at bases HEART: S1 S2 regular rate and rhythm , ABDOMEN: Soft , no tenderness EXTREMITIES: Left heel ulcer with slough tissue stage III pressure ulcer patient also have a stage III pressure ulcer to sacral area with slough tissue but no significant redness or drainage - Labs CBC & Chem 7: 05/19/24 09:28 05/19/24 07:29 Labs: Abnormal Lab Results - Last 24 Hours (Table) 05/19/24 05/19/24 Range/Units 07:29 09:28 WBC 11.2 H (3.8-10.6) k/uL MCV 79.2 L (80.0-100.0) fL MCH 24.5 L (25.0-35.0) pg MCHC 30.9 L (31.0-37.0) g/dL RDW 16.4 H (11.5-15.5) % Plt Count 541 H (150-450) k/uL Chloride 108 H (98-107) mmol/L Carbon Dioxide 19 L (22-30) mmol/L Creatinine 0.43 L (0.52-1.04) mg/dL Glucose 67 L (74-99) mg/dL C-Reactive Protein 2.6 H (<1.0) mg/dL Microbiology - Last 24 Hours (Table) 05/17/24 08:18 Blood Culture - Preliminary Blood Assessment and Plan (1) RSV bronchiolitis Current Visit: Yes Status: Acute Code(s): J21.0 - ACUTE BRONCHIOLITIS DUE TO RESPIRATORY SYNCYTIAL VIRUS SNOMED Code(s): 44157980 (2) UTI (urinary tract infection) Current Visit: Yes Status: Acute Code(s): N39.0 - URINARY TRACT INFECTION, SITE NOT SPECIFIED SNOMED Code(s): 33775136 Plan: 1patient presented to hospital with mental status changes confusion did have a positive UA elevated white count concerning for UTI likely limited gram-negative pathogen 2-patient also have a recent history of left heel osteomyelitis with the patient was at the end of completion of her antibiotic therapy with the previous culture positive for drug-resistant Pseudomonas and MRSA 3-patient also tested positive for RSV Chest x-ray concerning for acute right basilar infiltrate component of pneumonia not entirely excluded 4- rash more likely due to meropenem which has been discontinued 5-patient has been started on Azactam unfortunately no urine culture were done will be requested again along with a UA and continue with the Medihoney to the left heel and sacral wound Dictation was produced using mobile [employer] dictation software. please excuse any grammatical, word or spelling errors. Time with Patient: Less than 30
[2024-05-19 17:47] LABS: Appearance,Urine Clear (Clear); Bilirubin,Urine Negative (Negative); Blood,Urine Negative (Negative); Color,Urine Colorless; Glucose,Urine (UA) Negative (Negative); Ketones,Urine Trace (Negative); Leukocyte Esterase,Urine Large (Negative); Mucus,Urine Rare /hpf; Nitrite,Urine Negative (Negative); PH, Urine 6.5 (5.0-8.0); Protein,Urine Negative (Negative); RBC,Urine 6 /hpf (0-5); Squamous Epithelial Cell,Urine <1 /hpf (0-4); Urobilinogen,Urine <2.0 mg/dL (<2.0); WBC,Urine 58 /hpf (0-5)
--- NOTE | 2024-05-19 18:04 | P.PN ---
Subjective Progress Note Date: 05/19/24 63-year-old female transferred from her nursing facility for concern for altered mental status, in the setting of a UTI that is being treated with IV antibiotics via PICC line. Patient is ANO x 1-2 at this time. Is moaning in pain due to abdominal discomfort. No significant history obtained from EMS and/or nursing staff otherwise. 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 Recurrent UTIs. Presents for further evaluation at this time. Blood work completed in ED reveals a WBC of 11.1, hemoglobin of 12.4 and platelet count of 568, sodium of 143, potassium 4.3, BUNs/creatinine of 25/0.78, AST elevated at 18 with ALT of 83, UA is positive for blood, large leukocyte e sterase, many WBCs and bacteria Urine drug screen is positive for oxycodone and tricyclic antidepressants Viral screen is positive for RSV PCR; influenza A and B PCR is negative; COVID- [address] of the abdomen and pelvis reveals bladder wall thickening with bilateral hydronephrosis, bilateral nonobstructing renal calculi CT of the brain is negative for any acute intracranial abnormality Chest x-ray reveals new right basilar acute infiltrate with small right-sided pleural effusion 05/19/2024 Patient is seen and evaluated in room at bedside; remains afebrile; currently on O2 at 2 L per nasal cannula Lab review shows WBC of 11.2, hemoglobin of 11.4 and platelet count of 541, sodium 138, potassium 3.5, BUNs/creatinine 14/0.43 and blood glucose of 67 patient presented to hospital with mental status changes confusion did have a positive UA elevated white count concerning for UTI likely limited gram-negative pathogen -patient also have a recent history of left heel osteomyelitis with the patient was at the end of completion of her antibiotic therapy with the previous culture positive for drug-resistant Pseudomonas and MRSA -patient also tested positive for RSV Chest x-ray concerning for acute right basilar infiltrate component of pneumonia not entirely excluded - rash more likely due to meropenem which has been discontinued -patient has been started on Azactam unfortunately no urine culture were done will be requested again along with a UA and continue with the Medihoney to the left heel and sacral wound Objective - Vital Signs Vital signs: Vital Signs Temp 97.8 F 05/19/24 07:35 Pulse 76 05/19/24 07:35 Resp 18 05/19/24 07:35 BP 136/80 05/19/24 07:35 Pulse Ox 96 05/19/24 10:09 FiO2 Intake & Output 05/18/24 05/19/24 05/19/24 18:59 06:59 18:59 Intake Total 440 Output Total 1000 Balance -560 Intake: Oral 440 Output: Urine 1000 Uretheral (Llanes) 1000 Other: Voiding Method Indwelling Catheter Indwelling Catheter # Bowel Movements 1 1 - Exam General: Appears in mild distress. Appears uncomfortable. HEAD: Normal with no signs of head trauma. EYES: PERRLA, EOMI, conjunctiva normal, no discharge. Pupils 3 mm and equal bilaterally. ENT: Hearing grossly intact, normal oropharynx. RESPIRATORY: Clear breath sounds bilaterally. No wheezes, rales, or rhonchi. C/V: Regular rate and rhythm. S1 and S2 auscultated, no edema, peripheral pulses 2+ and intact throughout ABD: Abdomen soft, nondistended. No focal tenderness to palpation. No guarding or rebound tenderness. EXT: Normal range of motion, no obvious deformity SKIN: No rashes or lesions observed on exposed skin. NEURO: Alert and oriented x 1-2. History of paraplegia. Appears to be at her baseline in terms of extremity movement. No focal deficits. - Labs CBC & Chem 7: 05/19/24 09:28 05/19/24 07:29 Labs: Abnormal Lab Results - Last 24 Hours (Table) 05/19/24 05/19/24 Range/Units 07:29 09:28 WBC 11.2 H (3.8-10.6) k/uL MCV 79.2 L (80.0-100.0) fL MCH 24.5 L (25.0-35.0) pg MCHC 30.9 L (31.0-37.0) g/dL RDW 16.4 H (11.5-15.5) % Plt Count 541 H (150-450) k/uL Chloride 108 H (98-107) mmol/L Carbon Dioxide 19 L (22-30) mmol/L Creatinine 0.43 L (0.52-1.04) mg/dL Glucose 67 L (74-99) mg/dL C-Reactive Protein 2.6 H (<1.0) mg/dL Microbiology - Last 24 Hours (Table) 05/17/24 08:18 Blood Culture - Preliminary Blood Assessment and Plan Assessment: 1. Altered mental status; likely toxic metabolic encephalopathy related to pneumonia versus mild LESLIE versus RSV infection versus UTI 2. Healthcare associated pneumonia; patient has been placed on IV Merrem and vancomycin; we will continue with current antibiotics -Monitor CBC, CRP and procalcitonin; blood cultures and sputum culture -Consult ID 3. RSV viral infection; continue with supportive care 4. UTI; patient is currently on IV antibiotics via PICC line for UTI; we will wait for final culture results; continue with Merrem and vancomycin at this time 5. Hyperlipidemia; Lipitor 80 mg p.o. nightly 6. COPD/asthma; not in exacerbation; continue with home inhaler therapy 7. Hypertension; metoprolol 25 mg twice daily 8. Chronic pain/neuropathy; patient takes oxycodone 5 mg every 4 hours along with Neurontin 300 mg every 8 hours; will hold till mental status improves DVT prophylaxis; SCDs/subcu heparin CODE STATUS; full code
--- NOTE | 2024-05-20 08:19 | US ---
EXAMINATION TYPE: US renals and bladder DATE OF EXAM: 05/20/2024 COMPARISON: CT 05/17/24 CLINICAL INDICATION: Female, 63 years old with history of asses for hydronephrosis; Assess for hydro. Left kidney imaged first. TECHNIQUE: Grayscale imaging of the bilateral kidneys and urinary bladder: FINDINGS: EXAM MEASUREMENTS: Right Kidney: 12.3 x 5.6 x 5.0 cm Left Kidney: 12.1 x 6.5 x 5.7 cm Right Kidney: Scheller seen. *Complex areas seen, larger is at mid/inf pole: 2.0 x 1.9 x 1.5 cm. Left Kidney: *Scheller seen. Bladder: Suboptimally evaluated due to incomplete distention. There is bladder wall thickening seen o n prior CT on 05/17/2024. Catheter in place. Bilateral Jets seen: No, unable to properly evaluate due to artifact from movement. IMPRESSION: Bilateral hydronephrosis as seen on prior CT correlate for obstruction due to bladder wall thickening seen on CT. Llanes catheter in bladder. [facility], , 05/20/2024 8:16 AM
[2024-05-20] MEDS: HYDROmorphone 0.5 MG/0.5 ML SYRINGE IVP STA (09:43)
--- NOTE | 2024-05-20 10:26 | P.PN ---
Subjective 63-year-old female transferred from her nursing facility for concern for altered mental status, in the setting of a UTI that is being treated with IV antibiotics via PICC line. Patient is ANO x 1-2 at this time. Is moaning in pain due to abdominal discomfort. No significant history obtained from EMS and/or nursing staff otherwise. 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 Recurrent UTIs. Presents for further evaluation at this time. Blood work completed in ED reveals a WBC of 11.1, hemoglobin of 12.4 and p latelet count of 568, sodium of 143, potassium 4.3, BUNs/creatinine of 25/0.78, AST elevated at 18 with ALT of 83, UA is positive for blood, large leukocyte esterase, many WBCs and bacteria Urine drug screen is positive for oxycodone and tricyclic antidepressants Viral screen is positive for RSV PCR; influenza A and B PCR is negative; COVID- [address] of the abdomen and pelvis reveals bladder wall thickening with bilateral hydronephrosis, bilateral nonobstructing renal calculi CT of the brain is negative for any acute intracranial abnormality Chest x-ray reveals new right basilar acute infiltrate with small right-sided pleural effusion 05/19/2024 Patient is seen and evaluated in room at bedside; remains afebrile; currently on O2 at 2 L per nasal cannula Lab review shows WBC of 11.2, hemoglobin of 11.4 and platelet count of 541, sodium 138, potassium 3.5, BUNs/creatinine 14/0.43 and blood glucose of 67 patient presented to hospital with mental status changes confusion did have a positive UA elevated white count concerning for UTI likely limited gram-negative pathogen -patient also have a recent history of left heel osteomyelitis with the patient was at the end of completion of her antibiotic therapy with the previous culture positive for drug-resistant Pseudomonas and MRSA -patient also tested positive for RSV Chest x-ray concerning for acute right basilar infiltrate component of pneumonia not entirely excluded - rash more likely due to meropenem which has been discontinued -patient has been started on Azactam unfortunately no urine culture were done will be requested again along with a UA and continue with the Medihoney to the left heel and sacral wound 05/20, I started taking care of the patient today 05/20/2024 This is a pleasant 63 years old female who presents with signs symptoms of UTI cystitis and sepsis and workup showing bilateral hydronephrosis Patient was hypotensive, blood pressure is better this morning She is complaining from severe pain in her back mainly on the left side at the area of CVA tenderness. Also she is complaining from suprapubic pain and tenderness. Llanes catheter in place She is currently afebrile, blood pressure improved 125/79. Workup showing mild leukocytosis of 12.2. Rest of CBC, BMP are unremarkable. Liver enzymes moderately elevated with AST 103 and ALT 73. C-reactive protein is high 3.7 and 2.6. Pro- Calcitonin is negative at 0.09. Blood cultures pending Urine analysis showing UTI CT of the abdomen and pelvis showing urinary bladder wall thickening with bilateral hydronephrosis. Has bilateral nonobstructive renal calculi. CT of the brain was negative for acute process Renal ultrasound showing similar bilateral hydronephrosis. Patient currently kept on Ringer lactate at 130 and aztreonam Review of systems CONSTITUTIONAL: No fever, no malaise, no fatigue. HEENT: No recent visual problems or hearing problems. Denied any sore throat. CARDIOVASCULAR: No orthopnea, PND, no palpitations, no syncope. MUSCULOSKELETAL/RHEUMATOLOGICAL: Denies any joint pain, swelling, or any muscle pain. ENDOCRINE: Denies any polyuria or polydipsia. Active Medications Generic Name Dose Route Start Last Admin Trade Name Freq PRN Reason Stop Dose Admin Acetaminophen 650 mg 05/17/24 11:19 05/20/24 09:37 Acetaminophen Tab 325 Mg Tab PO 650 mg Q6HR PRN Administration Mild Pain or Fever > 100.5 Atorvastatin Calcium 80 mg 05/17/24 21:00 05/19/24 20:13 Atorvastatin 80 Mg Tab PO 80 mg HS@2100 EDEN Administration Budesonide/Formoterol Fumarate 2 puff 05/17/24 21:00 05/20/24 10:09 Symbicort 80-4.5 Mcg Inhaler INHALATION 2 puff RT-BID@0900,2100 EDEN Administration Calcium Carbonate 1 each 05/18/24 09:00 05/20/24 09:15 Calcium Carb-Vit D 500 Mg-5 Mcg Tab PO 1 each DAILY@0900 EDEN Administration Diphenhydramine HCl 25 mg 05/18/24 10:38 05/19/24 20:37 Diphenhydramine 25 Mg Cap PO 25 mg Q6HR PRN Administration Mild Itching Duloxetine HCl 60 mg 05/18/24 09:00 05/20/24 09:15 Duloxetine Hcl 60 Mg Capsule.Dr PO 60 mg DAILY@0900 [facility] Administration Heparin Sodium (Porcine) 5,000 unit 05/17/24 16:00 05/20/24 09:15 Heparin Sodium,Porcine 5,000 Unit/Ml 1 Ml Vial SQ 5,000 unit Q8HR EDEN Administration Hydromorphone HCl 0.5 mg 05/20/24 09:32 Hydromorphone 0.5 Mg/0.5 Ml Syringe IVP Q6HR PRN Moderate to Severe Pain (4-10) Lactated Ringer's 1,000 mls @ 130 mls/hr 05/17/24 07:45 05/20/24 04:28 Lactated Ringers IV Not Given .[id number] [facility] Aztreonam 2 gm/ Sodium 100 mls @ 33.3 mls/hr 05/18/24 16:00 05/20/24 09:15 Chloride IVPB 33.3 mls/hr Q8HR [facility] Administration Protocol Loratadine 10 mg 05/17/24 21:00 05/19/24 20:13 Loratadine 10 Mg Tab PO 10 mg HS@2100 [facility] Administration Metoprolol Tartrate 25 mg 05/17/24 21:00 05/20/24 09:15 Metoprolol Tartrate 25 Mg Tab PO 25 mg BID@0900,2100 [facility] Administration Modafinil 100 mg 05/18/24 09:00 05/20/24 09:37 Modafinil 100 Mg Tab PO 100 mg DAILY@0900 [facility] Administration Naloxone HCl 0.2 mg 05/17/24 11:19 Naloxone 0.4 Mg/Ml 1 Ml Vial IV Q2M PRN Opioid Reversal Ondansetron HCl 4 mg 05/17/24 11:19 05/19/24 02:57 Ondansetron 4 Mg/2 Ml Vial IVP 4 mg Q8HR PRN Administration Nausea And Vomiting Petrolatum 1 applic 05/17/24 18:28 05/17/24 20:32 Zinc Oxide Paste (Z-Guard) 1 Applic TOPICAL 1 applic DAILY PRN Administration Wound Healing Protocol Potassium Chloride 20 meq 05/17/24 21:00 05/20/24 09:15 Potassium Chloride Er 20 Meq Tab.Er PO 20 meq BID@0900,2100 EDEN Administration Objective - Vital Signs Vital signs: Vital Signs Temp 98.2 F 05/20/24 08:00 Pulse 87 05/20/24 08:00 Resp 18 05/20/24 08:00 BP 125/79 05/20/24 08:00 Pulse Ox 98 05/20/24 08:00 FiO2 Intake & Output 05/19/24 05/20/24 05/20/24 18:59 06:59 18:59 Output Total 1300 650 Balance -1300 -650 Output: Urine 1300 650 Uretheral (Llanes) 400 Other: Voiding Method Indwelling Catheter Indwelling Catheter # Voids 1 # Bowel Movements 1 2 - Exam GENERAL: The patient is alert and oriented x3, not in any acute distress. Well developed, well nourished. HEENT: Pupils are round and equally reacting to light. EOMI. No scleral icterus. No conjunctival pallor. Normocephalic, atraumatic. No pharyngeal erythema. No thyromegaly. CARDIOVASCULAR: S1 and S2 present. No murmurs, rubs, or gallops. PULMONARY: Chest is clear to auscultation, no wheezing , no crackles. -ABDOMEN: Soft, nondistended, normoactive bowel sounds. No palpable organomegaly. Left CVA tenderness, suprapubic tenderness MUSCULOSKELETAL: No joint swelling or deformity. EXTREMITIES: No cyanosis, clubbing, or pedal edema. NEUROLOGICAL: Gross neurological examination did not reveal any focal deficits. SKIN: No rashes. no petechiae. - Labs CBC & Chem 7: 05/19/24 09:28 05/19/24 07:29 Labs: Abnormal Lab Results - Last 24 Hours (Table) 05/19/24 Range/Units 17:27 Urine Ketones Trace H (Negative) Ur Leukocyte Esterase Large H (Negative) Urine RBC 6 H (0-5) /hpf Urine WBC 58 H (0-5) /hpf Urine Mucus Rare H (None) /hpf Microbiology - Last 24 Hours (Table) 05/17/24 08:18 Blood Culture - Preliminary Blood Assessment and Plan Assessment: 1. Altered mental status; likely toxic metabolic encephalopathy related to pneumonia versus mild LESLIE versus RSV infection versus UTI. Improved 2. Acute urinary tract infection, cystitis with sepsis and hypotension present on admission -Continued on aztreonam -Follow-up blood culture results -Infectious disease team on the case -Continue with aggressive hydration 3. Bilateral hydronephrosis seen on CT of the abdomen and ultrasound of the renal system -Urology team consult was placed -Patient in severe pain and placed on IV Dilaudid 4. RSV viral infection; continue with supportive care 5. Hyperlipidemia; Lipitor 80 mg p.o. nightly 6. COPD/asthma; not in exacerbation; continue with home inhaler therapy 7. Hypertension; metoprolol 25 mg twice daily 8. Chronic pain/neuropathy; patient takes oxycodone 5 mg every 4 hours along with Neurontin 300 mg every 8 hours; will hold till mental status improves DVT prophylaxis; SCDs/subcu heparin GI prophylaxis: Pepcid CODE STATUS; full code Prognosis is guarded
[2024-05-20 14:56] VITALS: BMI 27.3
[2024-05-20] MEDS: HYDROmorphone 0.5 MG/0.5 ML SYRINGE IVP PRN (16:22)
--- NOTE | 2024-05-20 17:38 | P.PN ---
Subjective Progress Note Date: 05/20/24 Principal diagnosis: Reason for follow-up is UTI left heel ulcer Patient is a 63-year-old female with multiple comorbidities including hypertension, chronic back pain status post surgery resulting in paraplegia depression did have a chronic lower extremity wound and was recently diagnosed with a left heel osteomyelitis culture positive for drug-resistant Pseudomonas and MRSA patient has been brought to the hospital concerning for mental status changes and possible UTI. On today's evaluation that is 05/20/2024, patient has been afebrile, patient is breathing comfortably and is currently on 2 L current oxygen, patient denies having any significant cough no chest pain, patient denies nausea vomiting or diarrhea and no abdominal pain. No new lab has been obtained today urine culture is currently pending Objective - Vital Signs Vital signs: Vital Signs Temp 98.2 F 05/20/24 08:00 Pulse 87 05/20/24 08:00 Resp 18 05/20/24 08:00 BP 125/79 05/20/24 08:00 Pulse Ox 98 05/20/24 08:00 FiO2 Intake & Output 05/19/24 05/20/24 05/20/24 18:59 06:59 18:59 Output Total 1300 650 Balance -1300 -650 Output: Urine 1300 650 Uretheral (Llanes) 400 Other: Voiding Method Indwelling Catheter Indwelling Catheter # Voids 1 # Bowel Movements 1 2 - Exam GENERAL DESCRIPTION: An elderly female lying in bed in no distress RESPIRATORY SYSTEM: Unlabored breathing , decreased breath sounds at bases HEART: S1 S2 regular rate and rhythm , ABDOMEN: Soft , no tenderness EXTREMITIES: Left heel ulcer with slough tissue stage III pressure ulcer patient also have a stage III pressure ulcer to sacral area with slough tissue but no significant redness or drainage - Labs CBC & Chem 7: 05/19/24 09:28 05/19/24 07:29 Labs: Abnormal Lab Results - Last 24 Hours (Table) 05/19/24 Range/Units 17:27 Urine Ketones Trace H (Negative) Ur Leukocyte Esterase Large H (Negative) Urine RBC 6 H (0-5) /hpf Urine WBC 58 H (0-5) /hpf Urine Mucus Rare H (None) /hpf Microbiology - Last 24 Hours (Table) 05/17/24 08:18 Blood Culture - Preliminary Blood Assessment and Plan (1) RSV bronchiolitis Current Visit: Yes Status: Acute Code(s): J21.0 - ACUTE BRONCHIOLITIS DUE TO RESPIRATORY SYNCYTIAL VIRUS SNOMED Code(s): 72020369 (2) UTI (urinary tract infection) Current Visit: Yes Status: Acute Code(s): N39.0 - URINARY TRACT INFECTION, SITE NOT SPECIFIED SNOMED Code(s): 72648234 Plan: 1patient presented to hospital with mental status changes confusion did have a positive UA elevated white count concerning for UTI likely limited gram-negative pathogen 2-patient also have a recent history of left heel osteomyelitis with the patient was at the end of completion of her antibiotic therapy with the previous culture positive for drug-resistant Pseudomonas and MRSA 3-patient also tested positive for RSV Chest x-ray concerning for acute right basilar infiltrate component of pneumonia not entirely excluded 4- rash more likely due to meropenem which has been discontinued 5-patient repeat urine is positive cultures are currently pending continue Azactam while waiting for the culture to finalize Dictation was produced using [email or web address] dictation software. please excuse any grammatical, word or spelling errors. Time with Patient: Less than 30
[2024-05-20] MEDS: FAMOTIDINE 20 MG/2 ML VIAL IV SCH (20:06)
[2024-05-21 09:28] LABS: Basophils # (A) 0.07 X 10*3/uL (0.00-0.10); Basophils % (A) 0.7 %; Eosinophils # (A) 0.64 X 10*3/uL (0.04-0.35); Eosinophils % (A) 6.6 %; HCT 33.7 % (37.2-46.3); HGB 10.3 g/dL (12.0-15.0); Lymphocytes # (A) 3.76 X 10*3/uL (0.90-5.00); Lymphocytes % (A) 38.6 %; MCH 24.4 pg (27.0-32.0); MCHC 30.6 g/dL (32.0-37.0); MCV 79.9 FL (80.0-97.0); Mean Platelet Volume 9.9 FL (9.5-12.2); Monocytes # (A) 1.31 X 10*3/uL (0.20-1.00); Monocytes % (A) 13.4 %; NRBC Per 100 WBC 0 X 10*3/uL (0.00-0.01); Neutrophils % (A) 40.1 %; Platelet Count 442 X 10*3/uL (140-440); RBC 4.22 X 10*6/uL (4.10-5.20); RDW 17.2 % (11.5-14.5); WBC 9.74 X 10*3/uL (4.50-10.00)
[2024-05-21 09:54] LABS: ALT 41 U/L (8-44); AST 50 U/L (13-35); Albumin 2.3 g/dL (3.8-4.9); Albumin/Globulin Ratio 0.62 Ratio (1.60-3.17); Alkaline Phosphatase 87 U/L (41-126); Bilirubin, Conjugated <0.20 mg/dL (0.20-0.40); Calcium 7.9 mg/dL (8.7-10.3); Carbon Dioxide 21.3 mmol/L (21.6-31.8); Chloride 110 mmol/L (96-109); Globulin 3.7 g/dL (1.6-3.3); Glucose 96 mg/dL (70-110); Potassium 3.9 mmol/L (3.5-5.5); Sodium 139 mmol/L (135-145); Total Bilirubin <0.2 mg/dL (0.3-1.2)
--- NOTE | 2024-05-21 14:31 | P.PN ---
Subjective Progress Note Date: 05/21/24 Principal diagnosis: Reason for follow-up is UTI left heel ulcer Patient is a 63-year-old female with multiple comorbidities including hypertension, chronic back pain status post surgery resulting in paraplegia depression did have a chronic lower extremity wound and was recently diagnosed with a left heel osteomyelitis culture positive for drug-resistant Pseudomonas and MRSA patient has been brought to the hospital concerning for mental status changes and possible UTI. On today's evaluation that is 05/21/2024, Patient is afebrile this morning patient is more awake and alert today and denies having any chest pain shortness of breath or cough, the patient is currently on 2 L nasal oxygen, patient denies any abdominal pain no diarrhea no nausea no vomiting. Patient white count is 9.74, creatinine 0.4 culture have been negative so far Objective - Vital Signs Vital signs: Vital Signs Temp 98.1 F 05/21/24 07:35 Pulse 74 05/21/24 07:35 Resp 20 05/21/24 08:00 BP 118/76 05/21/24 07:35 Pulse Ox 94 L 05/21/24 07:35 FiO2 Intake & Output 05/20/24 05/21/24 05/21/24 18:59 06:59 18:59 Intake Total 595 Output Total 1100 750 Balance -505 -750 Weight 63.503 kg Intake: Oral 595 Output: Urine 1100 750 Uretheral (Llanes) 400 Other: Voiding Method Indwelling Catheter Indwelling Catheter Indwelling Catheter - Exam GENERAL DESCRIPTION: An elderly female lying in bed in no distress RESPIRATORY SYSTEM: Unlabored breathing , decreased breath sounds at bases HEART: S1 S2 regular rate and rhythm , ABDOMEN: Soft , no tenderness EXTREMITIES: Left heel ulcer with slough tissue stage III pressure ulcer patient also have a stage III pressure ulcer to sacral area with slough tissue but no significant redness or drainage - Labs CBC & Chem 7: 05/21/24 02:55 05/21/24 02:55 Labs: Abnormal Lab Results - Last 24 Hours (Table) 05/21/24 05/21/24 Range/Units 02:55 02:55 Hgb 10.3 L (12.0-15.0) g/dL Hct 33.7 L (37.2-46.3) % MCV 79.9 L (80.0-97.0) FL MCH 24.4 L (27.0-32.0) pg MCHC 30.6 L (32.0-37.0) g/dL RDW 17.2 H (11.5-14.5) % Plt Count 442 H (140-440) X 10*3/uL Immature Gran # 0.06 H (0.00-0.04) X 10*3/uL Monocytes # 1.31 H (0.20-1.00) X 10*3/uL Eosinophils # 0.64 H (0.04-0.35) X 10*3/uL Chloride 110 H (96-109) mmol/L Carbon Dioxide 21.3 L (21.6-31.8) mmol/L Creatinine 0.4 L (0.6-1.5) mg/dL BUN/Creatinine Ratio 30.00 H (12.00-20.00) Ratio Calcium 7.9 L (8.7-10.3) mg/dL Total Bilirubin <0.2 L (0.3-1.2) mg/dL AST 50 H (13-35) U/L Total Protein 6.0 L (6.2-8.2) g/dL Albumin 2.3 L (3.8-4.9) g/dL Globulin 3.7 H (1.6-3.3) g/dL Albumin/Globulin Ratio 0.62 L (1.60-3.17) Ratio Microbiology - Last 24 Hours (Table) 05/19/24 17:27 Urine Culture - Final Urine,Voided 05/17/24 08:18 Blood Culture - Preliminary Blood Assessment and Plan (1) RSV bronchiolitis Current Visit: Yes Status: Acute Code(s): J21.0 - ACUTE BRONCHIOLITIS DUE TO RESPIRATORY SYNCYTIAL VIRUS SNOMED Code(s): 18846334 (2) UTI (urinary tract infection) Current Visit: Yes Status: Acute Code(s): N39.0 - URINARY TRACT INFECTION, SITE NOT SPECIFIED SNOMED Code(s): 68207295 Plan: 1patient presented to hospital with mental status changes confusion did have a positive UA elevated white count concerning for UTI likely limited gram-negative pathogen 2-patient also have a recent history of left heel osteomyelitis with the patient was at the end of completion of her antibiotic therapy with the previous culture positive for drug-resistant Pseudomonas and MRSA 3-patient also tested positive for RSV Chest x-ray concerning for acute right basilar infiltrate component of pneumonia not entirely excluded 4- rash more likely due to meropenem which has been discontinued 5-patient repeat urine is positive cultures and culture have been negative more likely the patient also tachycardic with a culture done given a short course of Azactam for the episode of UTI Dictation was produced using [employer] dictation software. please excuse any grammatical, word or spelling errors. Time with Patient: Less than 30
--- NOTE | 2024-05-21 15:10 | P.PN ---
Subjective Progress Note Date: 05/21/24 63-year-old female transferred from her nursing facility for concern for altered mental status, in the setting of a UTI that is being treated with IV antibiotics via PICC line. Patient is ANO x 1-2 at this time. Is moaning in pain due to abdominal discomfort. No significant history obtained from EMS and/or nursing staff otherwise. 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 Recurrent UTIs. Presents for further evaluation at this time. Blood work completed in ED reveals a WBC of 11.1, hemoglobin of 12.4 and platelet count of 568, sodium of 143, potassium 4.3, BUNs/creatinine of 25/0.78, AST elevated at 18 with ALT of 83, UA is positive for blood, large leukocyte es terase, many WBCs and bacteria Urine drug screen is positive for oxycodone and tricyclic antidepressants Viral screen is positive for RSV PCR; influenza A and B PCR is negative; COVID- [address] of the abdomen and pelvis reveals bladder wall thickening with bilateral hydronephrosis, bilateral nonobstructing renal calculi CT of the brain is negative for any acute intracranial abnormality Chest x-ray reveals new right basilar acute infiltrate with small right-sided pleural effusion 05/19/2024 Patient is seen and evaluated in room at bedside; remains afebrile; currently on O2 at 2 L per nasal cannula Lab review shows WBC of 11.2, hemoglobin of 11.4 and platelet count of 541, sodium 138, potassium 3.5, BUNs/creatinine 14/0.43 and blood glucose of 67 patient presented to hospital with mental status changes confusion did have a positive UA elevated white count concerning for UTI likely limited gram-negative pathogen -patient also have a recent history of left heel osteomyelitis with the patient was at the end of completion of her antibiotic therapy with the previous culture positive for drug-resistant Pseudomonas and MRSA -patient also tested positive for RSV Chest x-ray concerning for acute right basilar infiltrate component of pneumonia not entirely excluded - rash more likely due to meropenem which has been discontinued -patient has been started on Azactam unfortunately no urine culture were done will be requested again along with a UA and continue with the Medihoney to the left heel and sacral wound 05/20, I started taking care of the patient today 05/20/2024 This is a pleasant 63 years old female who presents with signs symptoms of UTI cystitis and sepsis and workup showing bilateral hydronephrosis Patient was hypotensive, blood pressure is better this morning She is complaining from severe pain in her back mainly on the left side at the area of CVA tenderness. Also she is complaining from suprapubic pain and tenderness. Llanes catheter in place She is currently afebrile, blood pressure improved 125/79. Workup showing mild leukocytosis of 12.2. Rest of CBC, BMP are unremarkable. Liver enzymes moderately elevated with AST 103 and ALT 73. C-reactive protein is high 3.7 and 2.6. Pro- Calcitonin is negative at 0.09. Blood cultures pending Urine analysis showing UTI CT of the abdomen and pelvis showing urinary bladder wall thickening with bilateral hydronephrosis. Has bilateral nonobstructive renal calculi. CT of the brain was negative for acute process Renal ultrasound showing similar bilateral hydronephrosis. Patient currently kept on Ringer lactate at 130 and aztreonam 05/21. Patient seen and examined. Blood work done this morning showed WBC 9.74, hemoglobin 10.3, platelet count 442 sodium 139, potassium 3.9, BUN 12, creatinine 0.4 REVIEW OF SYSTEMS: CONSTITUTIONAL: No fever, no malaise,. CARDIOVASCULAR: No chest pain, no palpitations, no syncope. PULMONARY: No shortness of breath, no cough, GASTROINTESTINAL: No diarrhea, no nausea, no vomiting, no abdominal pain. NEUROLOGICAL: No headaches, no weakness, PHYSICAL EXAMINATION: GENERAL: The patient is alert and oriented x3, ill looking HEENT: Pupils are round and equally reacting to light. EOMI. No scleral icterus. No conjunctival pallor. Normocephalic, atraumatic. No pharyngeal erythema. No thyromegaly. CARDIOVASCULAR: S1 and S2 present. No murmurs, rubs, or gallops. PULMONARY: Chest is clear to auscultation, no wheezing or crackles. ABDOMEN: Soft, nontender, nondistended, normoactive bowel sounds. No palpable organomegaly. MUSCULOSKELETAL: No joint swelling or deformity. EXTREMITIES: No cyanosis, clubbing, or pedal edema. NEUROLOGICAL: Gross neurological examination did not reveal any focal deficits. SKIN: No rashes. Assessment and plan Acute metabolic encephalopathy UTI Sepsis Bilateral hydronephrosis RSV viral infection Hyperlipidemia COPD Asthma Hypertension Chronic neuropathy History of left heel osteomyelitis Monitor vital signs Monitor CBC Monitor CMP Follow-up on urine culture Follow-up blood cultures Continue aztreonam Continue modafinil and Lopressor ID following Labs and medication were reviewed.. Continue same treatment. Continue with symptomatic treatment. Resume home medication. Monitor labs and vitals. DVT and GI prophylaxis. Further recommendations as per clinical course of the patient Dictation was produced using [employer] dictation software. please excuse any grammatical, word or spelling errors. Objective - Vital Signs Vital signs: Vital Signs Temp 98.1 F 05/21/24 07:35 Pulse 74 05/21/24 07:35 Resp 20 05/21/24 07:35 BP 118/76 05/21/24 07:35 Pulse Ox 94 L 05/21/24 07:35 FiO2 Intake & Output 05/20/24 05/21/24 05/21/24 18:59 06:59 18:59 Intake Total 595 Output Total 1100 750 Balance -505 -750 Weight 63.503 kg Intake: Oral 595 Output: Urine 1100 750 Uretheral (Llanes) 400 Other: Voiding Method Indwelling Catheter Indwelling Catheter - Labs CBC & Chem 7: 05/21/24 02:55 05/21/24 02:55 Labs: Abnormal Lab Results - Last 24 Hours (Table) 05/21/24 05/21/24 Range/Units 02:55 02:55 Hgb 10.3 L (12.0-15.0) g/dL Hct 33.7 L (37.2-46.3) % MCV 79.9 L (80.0-97.0) FL MCH 24.4 L (27.0-32.0) pg MCHC 30.6 L (32.0-37.0) g/dL RDW 17.2 H (11.5-14.5) % Plt Count 442 H (140-440) X 10*3/uL Immature Gran # 0.06 H (0.00-0.04) X 10*3/uL Monocytes # 1.31 H (0.20-1.00) X 10*3/uL Eosinophils # 0.64 H (0.04-0.35) X 10*3/uL Chloride 110 H (96-109) mmol/L Carbon Dioxide 21.3 L (21.6-31.8) mmol/L Creatinine 0.4 L (0.6-1.5) mg/dL BUN/Creatinine Ratio 30.00 H (12.00-20.00) Ratio Calcium 7.9 L (8.7-10.3) mg/dL Total Bilirubin <0.2 L (0.3-1.2) mg/dL AST 50 H (13-35) U/L Total Protein 6.0 L (6.2-8.2) g/dL Albumin 2.3 L (3.8-4.9) g/dL Globulin 3.7 H (1.6-3.3) g/dL Albumin/Globulin Ratio 0.62 L (1.60-3.17) Ratio Microbiology - Last 24 Hours (Table) 05/19/24 17:27 Urine Culture - Final Urine,Voided 05/17/24 08:18 Blood Culture - Preliminary Blood
--- NOTE | 2024-05-21 16:39 | P.GSCN ---
History of Present Illness Consult date: 05/21/24 Reason for Consult: Hydronephrosis Requesting physician: Guido E Sheet History of present illness: The patient is a 63-year-old female transferred from her nursing facility for altered mental status. She has been treated for recurrent UTIs, and recently received IV antibiotics via a PICC line for treatment of a UTI. She underwent ureteroscopic removal of a left ureteral calculus and right renal calculi in April 2019 after initially undergoing stent placement for a septic stone. There was no right hydronephrosis at that time. She has undergone a CT scan of the abdomen and pelvis during this admission, with a Llanes catheter in place. Findings include diffuse bladder wall thickening and mild bilateral hyd roureteronephrosis with small bilateral nonobstructing renal calculi. A renal ultrasound has likewise shown bilateral mild hydronephrosis. The patient states that she has undergone multiple lumbar spine surgeries. Her most recent was at [facility] in August 2023, and she has unfortunately been paraplegic since that time. She does report urinary incontinence, for which she wears Depends. Review of Systems - Genitourinary Genitourinary: Reports as per HPI Past Medical History Past Medical History: Cancer, Hearing Disorder / Deafness Additional Past Medical History / Comment(s): back pain; "several tia's-Last TIA 1 1/2 YEARS AGO, pluerisy, migraines, past falls, "was told at [facility] she had non-alcoholic cirrhosis". lung cancer History of Any Multi-Drug Resistant Organisms: None Reported Past Surgical History: Back Surgery, Breast Surgery, Hysterectomy Additional Past Surgical History / Comment(s): back sx, neck sx. spleenectomy- d/t injury; benign R Breast lumpectomy, sinus sx Past Anesthesia/Blood Transfusion Reactions: No Reported Reaction Additional Past Anesthesia/Blood Transfusion Reaction / Comm: Pt hs albaro chin Past Psychological History: Depression Smoking Status: Current some day smoker Past Alcohol Use History: None Reported Past Drug Use History: None Reported - Past Family History Mother Family Medical History: Cancer Additional Family Medical History / Comment(s): Father History Unknown: Yes Family Medical History: No Reported History Additional Family Medical History / Comment(s): Father was murdered Medications and Allergies Home Medications Medication Instructions Recorded Confirmed Type Atorvastatin [Lipitor] 80 mg PO HS@2100 03/21/2414/25 History DULoxetine HCL [Cymbalta] 60 mg PO DAILY@89903/21/24 05/17/24 History Fluticasone Propion/Salmeterol 1 puff INHALATION RT-BID@09,209903/21/24 05/17/24 History [Fluticasone-Salmeterol 250-50] Gabapentin [Neurontin] 300 mg PO Q8HR@0600,1400,2200 03/21/24 05/17/24 History Metoprolol Tartrate [Lopressor] 25 mg PO BID@0900,209903/21/24 05/17/24 History Ondansetron [Zofran] 4 mg PO Q6H PRN 03/21/24 05/17/24 History Acetaminophen Tab [Tylenol] 325 mg PO Q6HR PRN 05/17/24 05/17/24 History Baclofen [Lioresal] 10 mg PO TID@0900,1300,209905/17/24 05/17/24 History Calcium Carbonate/Vitamin D3 1 tab PO DAILY@89905/17/24 05/17/24 History [Calcium 600 mg-Vit D3 10 mcg (400 Unit)] Cetirizine HCl [Zyrtec] 10 mg PO HS@209905/17/24 05/17/24 History Collagenase [Santyl Ointment] 1 applic TOPICAL DAILY PRN 05/17/24 05/17/24 History Collagenase [Santyl Ointment] 1 applic TOPICAL HS 05/17/24 05/17/24 History Cyclobenzaprine [Flexeril] 10 mg PO HS@209905/17/24 05/17/24 History Ensure Clear 1 can PO BID@0900,209905/17/24 05/17/24 History Hydrophilic Cream [Triad (Kerodex 1 applic TOPICAL MOWEFR@209905/17/24 05/17/24 History geq)] Mag Hydrox/Aluminum Hyd/Simeth 30 ml PO Q6H PRN 05/17/24 05/17/24 History [Mylanta Maximum Strength Liq] Potassium Chloride ER [K-Dur 20] 20 meq PO BID@0900,209905/17/24 05/17/24 History modafiniL 100 mg PO DAILY@0900 05/17/24 05/17/24 History oxyCODONE HCL [Roxicodone] 5 mg PO Q4H PRN 05/17/24 05/17/24 History Allergies Allergy/AdvReac Type Severity Reaction Status Date / Time gentamicin Allergy Anaphylaxis Verified 05/17/24 09:43 Surgical - Exam Vital Signs Pulse Resp Pulse Ox 102 H 18 96 05/17/24 07:18 05/17/24 07:18 05/17/24 07:18 - General well developed, well nourished, no distress - Respiratory normal respiratory effort - Genitourinary Llanes catheter is draining clear yellow urine. - Psychiatric oriented to time, oriented to person, oriented to place, speech is normal, memory intact Results - Labs 05/21/24 02:55 05/21/24 02:55 Abnormal Lab Results - Last 24 Hours (Table) 05/19/24 Range/Units 17:27 Urine Ketones Trace H (Negative) Ur Leukocyte Esterase Large H (Negative) Urine RBC 6 H (0-5) /hpf Urine WBC 58 H (0-5) /hpf Urine Mucus Rare H (None) /hpf Microbiology - Last 24 Hours (Table) 05/17/24 08:18 Blood Culture - Preliminary Blood - Imaging CT scan - abdomen: report reviewed, image reviewed US - kidney/bladder: report reviewed Assessment and Plan (1) Bilateral hydronephrosis Current Visit: Yes Status: Acute Code(s): N13.30 - UNSPECIFIED HYDRONEPHROSIS SNOMED Code(s): 09184152 (2) UTI (urinary tract infection) Current Visit: Yes Status: Acute Code(s): N39.0 - URINARY TRACT INFECTION, SITE NOT SPECIFIED SNOMED Code(s): 44964826 Plan: The patient likely has a neurogenic bladder as a result of her spinal cord injury, resulting in hydronephrosis. Her renal function is normal. I would suggest that the Llanes catheter be removed and that a post-void residual be checked to ensure adequate bladder emptying. I have explained to the patient that a neurogenic bladder does require proper evaluation and management, and I have thus suggested that upon discharge she contact our office to schedule urodynamic testing. This was discussed in detail with the patient and her family members which were present, and she was given my card to arrange this. Please notify me if I can be of any further assistance during this hospitalization. Time with Patient: Greater than 30
[2024-05-22] MEDS: LORazepam 1 MG/0.5 ML VIAL IV STA (02:20)
[2024-05-22 06:19] LABS: Glucose,Whole Blood 99 mg/dL (70-110)
[2024-05-22 07:23] VITALS: BP 150/77; PULSE 118; RESP 18; TEMP 97.4
--- NOTE | 2024-05-22 13:06 | P.DS ---
Providers Date of admission: 05/17/24 11:20 Expected date of discharge: 05/22/24 Attending physician: Bishop Mejia MD Consults: 05/17/24 11:19 Consult Physician Routine Consulting Provider: Amanda Eli Consult Reason/Comments: recurrent uti, possible pneumonia, AMS Do you want consulting provider notified?: Yes 05/20/24 09:31 Consult Physician Urgent Consulting Provider: Brenden Neville Consult Reason/Comments: hydronephrosis, hypotension , uti Do you want consulting provider notified?: Yes Primary care physician: Stated None Hospital Course: Discharge diagnoses; Acute metabolic encephalopathy UTI Sepsis Bilateral hydronephrosis RSV viral infection Hyperlipidemia COPD Asthma Hypertension Chronic neuropathy History of left heel osteomyelitis Hospital course; 63-year-old female transferred from her nursing facility for concern for altered mental status, in the setting of a UTI that is being treated with IV antibiotics via PICC line. Patient is ANO x 1-2 at this time. Is moaning in pain due to abdominal discomfort. No significant history obtained from EMS and/or nursing staff otherwise. 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 Recurrent UTIs. Presents for further evaluation at this time. Blood work completed in ED reveals a WBC of 11.1, hemoglobin of 12.4 and platelet count of 568, sodium of 143, potassium 4.3, BUNs/creatinine of 25/0.78, AST elevated at 18 with ALT of 83, UA is positive for blood, large leukocyte esterase, many WBCs and bacteria Urine drug screen is positive for oxycodone and tricyclic antidepressants Viral screen is positive for RSV PCR; influenza A and B PCR is negative; COVID- [address] of the abdomen and pelvis reveals bladder wall thickening with bilateral hydronephrosis, bilateral nonobstructing renal calculi CT of the brain is negative for any acute intracranial abnormality Chest x-ray reveals new right basilar acute infiltrate with small right-sided pleural effusion 05/19/2024 Patient is seen and evaluated in room at bedside; remains afebrile; currently on O2 at 2 L per nasal cannula Lab review shows WBC of 11.2, hemoglobin of 11.4 and platelet count of 541, sodium 138, potassium 3.5, BUNs/creatinine 14/0.43 and blood glucose of 67 patient presented to hospital with mental status changes confusion did have a positive UA elevated white count concerning for UTI likely limited gram-negative pathogen -patient also have a recent history of left heel osteomyelitis with the patient was at the end of completion of her antibiotic therapy with the previous culture positive for drug-resistant Pseudomonas and MRSA -patient also tested positive for RSV Chest x-ray concerning for acute right basilar infiltrate component of pneumonia not entirely excluded - rash more likely due to meropenem which has been discontinued -patient has been started on Azactam unfortunately no urine culture were done will be requested again along with a UA and continue with the Medihoney to the left heel and sacral wound 05/20, I started taking care of the patient today 05/20/2024 This is a pleasant 63 years old female who presents with signs symptoms of UTI cystitis and sepsis and workup showing bilateral hydronephrosis Patient was hypotensive, blood pressure is better this morning She is complaining from severe pain in her back mainly on the left side at the area of CVA tenderness. Also she is complaining from suprapubic pain and tenderness. Llanes catheter in place She is currently afebrile, blood pressure improved 125/79. Workup showing mild leukocytosis of 12.2. Rest of CBC, BMP are unremarkable. Liver enzymes moderately elevated with AST 103 and ALT 73. C-reactive protein is high 3.7 and 2.6. Pro- Calcitonin is negative at 0.09. Blood cultures pending Urine analysis showing UTI CT of the abdomen and pelvis showing urinary bladder wall thickening with bilateral hydronephrosis. Has bilateral nonobstructive renal calculi. CT of the brain was negative for acute process Renal ultrasound showing similar bilateral hydronephrosis. Patient currently kept on Ringer lactate at 130 and aztreonam 05/21. Patient seen and examined. Blood work done this morning showed WBC 9.74, hemoglobin 10.3, platelet count 442 sodium 139, potassium 3.9, BUN 12, creatinine 0.4 05/22. Patient seen and examined. ID recommended discontinuing antibiotics as patient completed the course. Patient be discharged back to rehab facility PHYSICAL EXAMINATION: GENERAL: The patient is alert and oriented x3, chronically ill looking HEENT: Pupils are round and equally reacting to light. EOMI. No scleral icterus. No conjunctival pallor. Normocephalic, atraumatic. No pharyngeal erythema. No thyromegaly. CARDIOVASCULAR: S1 and S2 present. No murmurs, rubs, or gallops. PULMONARY: Chest is clear to auscultation, no wheezing or crackles. ABDOMEN: Soft, nontender, nondistended, normoactive bowel sounds. No palpable organomegaly. MUSCULOSKELETAL: No joint swelling or deformity. EXTREMITIES: No cyanosis, clubbing, or pedal edema. NEUROLOGICAL: Gross neurological examination did not reveal any focal deficits. SKIN: No rashes. Dictation was produced using [employer] dictation software. please excuse any grammatical, word or spelling errors. Patient Condition at Discharge: Stable Plan - Discharge Summary Discharge Rx Participant: Yes New Discharge Prescriptions: Continue Ondansetron [Zofran] 4 mg PO Q6H PRN PRN Reason: Nausea And Vomiting Mag Hydrox/Aluminum Hyd/Simeth [Mylanta Maximum Strength Liq] 30 ml PO Q6H PRN PRN Reason: Heartburn,Idigestion,gas Baclofen [Lioresal] 10 mg PO TID@0900,1300,2100 Potassium Chloride ER [K-Dur 20] 20 meq PO BID@0900,2100 Ensure Clear 1 can PO BID@0900,2100 Cetirizine HCl [Zyrtec] 10 mg PO HS@2100 Cyclobenzaprine [Flexeril] 10 mg PO HS@2100 Calcium Carbonate/Vitamin D3 [Calcium 600 mg-Vit D3 10 mcg (400 Unit)] 1 tab PO DAILY@0900 Collagenase [Santyl Ointment] 1 applic TOPICAL DAILY PRN PRN Reason: wound care Collagenase [Santyl Ointment] 1 applic TOPICAL HS Metoprolol Tartrate [Lopressor] 25 mg PO BID@0900,2100 Gabapentin [Neurontin] 300 mg PO Q8HR@0600,1400,2200 Fluticasone Propion/Salmeterol [Fluticasone-Salmeterol 250-50] 1 puff INHALATION RT-BID@0900,2100 DULoxetine HCL [Cymbalta] 60 mg PO DAILY@0900 Atorvastatin [Lipitor] 80 mg PO HS@2100 Hydrophilic Cream [Triad (Kerodex geq)] 1 applic TOPICAL MOWEFR@2100 Acetaminophen Tab [Tylenol] 325 mg PO Q6HR PRN PRN Reason: Pain modafiniL 100 mg PO DAILY@0900 Changed oxyCODONE HCL [Roxicodone] 5 mg PO Q4H PRN 3 Days #12 tab PRN Reason: Pain Discharge Medication List Atorvastatin [Lipitor] 80 mg PO HS@209903/21/24 [History] DULoxetine HCL [Cymbalta] 60 mg PO DAILY@89903/21/24 [History] Fluticasone Propion/Salmeterol [Fluticasone-Salmeterol 250-50] 1 puff INHALATION RT-BID@0900,209903/21/24 [History] Gabapentin [Neurontin] 300 mg PO Q8HR@0600,1400,2200 03/21/24 [History] Metoprolol Tartrate [Lopressor] 25 mg PO BID@0900,209903/21/24 [History] Ondansetron [Zofran] 4 mg PO Q6H PRN 03/21/24 [History] Acetaminophen Tab [Tylenol] 325 mg PO Q6HR PRN 05/17/24 [History] Baclofen [Lioresal] 10 mg PO TID@0900,1300,209905/17/24 [History] Calcium Carbonate/Vitamin D3 [Calcium 600 mg-Vit D3 10 mcg (400 Unit)] 1 tab PO DAILY@89905/17/24 [History] Cetirizine HCl [Zyrtec] 10 mg PO HS@209905/17/24 [History] Collagenase [Santyl Ointment] 1 applic TOPICAL DAILY PRN 05/17/24 [History] Collagenase [Santyl Ointment] 1 applic TOPICAL HS 05/17/24 [History] Cyclobenzaprine [Flexeril] 10 mg PO HS@209905/17/24 [History] Ensure Clear 1 can PO BID@0900,209905/17/24 [History] Hydrophilic Cream [Triad (Kerodex geq)] 1 applic TOPICAL MOWEFR@209905/17/24 [History] Mag Hydrox/Aluminum Hyd/Simeth [Mylanta Maximum Strength Liq] 30 ml PO Q6H PRN 05/17/24 [History] Potassium Chloride ER [K-Dur 20] 20 meq PO BID@0900,209905/17/24 [History] modafiniL 100 mg PO DAILY@0900 05/17/24 [History] oxyCODONE HCL [Roxicodone] 5 mg PO Q4H PRN 3 Days #12 tab 05/22/24 [Rx] Follow up Appointment(s)/Referral(s): None,Stated [Primary Care Provider] - 1-2 days Discharge Disposition: TRANSFER TO SNF/ECF
--- NOTE | 2024-05-22 17:47 | P.PN ---
Subjective Progress Note Date: 05/22/24 Principal diagnosis: Reason for follow-up is UTI left heel ulcer Patient is a 63-year-old female with multiple comorbidities including hypertension, chronic back pain status post surgery resulting in paraplegia depression did have a chronic lower extremity wound and was recently diagnosed with a left heel osteomyelitis culture positive for drug-resistant Pseudomonas and MRSA patient has been brought to the hospital concerning for mental status changes and possible UTI. On today's evaluation that is 05/22/2024,the patient denies any fever or any chills, patient is breathing comfortably on 2 L nasal oxygen no chest pain shortness of breath or cough no abdominal pain or diarrhea. The patient white count normalized to 9.74 creatinine 0.4 blood and urine culture have been negative Objective - Vital Signs Vital signs: Vital Signs Temp 97.4 F L 05/22/24 07:22 Pulse 118 H 05/22/24 07:22 Resp 18 05/22/24 07:22 BP 150/77 05/22/24 07:22 Pulse Ox 91 L 05/22/24 07:22 FiO2 Intake & Output 05/21/24 05/22/24 05/22/24 18:59 06:59 18:59 Output Total 2099 1949 Balance -2099 -1949 Output: Urine 2099 1949 Other: Voiding Method Indwelling Catheter Indwelling Catheter - Exam GENERAL DESCRIPTION: An elderly female lying in bed in no distress RESPIRATORY SYSTEM: Unlabored breathing , decreased breath sounds at bases HEART: S1 S2 regular rate and rhythm , ABDOMEN: Soft , no tenderness EXTREMITIES: Left heel ulcer with slough tissue stage III pressure ulcer patient also have a stage III pressure ulcer to sacral area with slough tissue but no significant redness or drainage - Labs CBC & Chem 7: 05/21/24 02:55 05/21/24 02:55 Assessment and Plan (1) RSV bronchiolitis Status: Acute Code(s): J21.0 - ACUTE BRONCHIOLITIS DUE TO RESPIRATORY SYNCYTIAL VIRUS SNOMED Code(s): 66017678 (2) UTI (urinary tract infection) Status: Acute Code(s): N39.0 - URINARY TRACT INFECTION, SITE NOT SPECIFIED SNOMED Code(s): 15810181 Plan: 1patient presented to hospital with mental status changes confusion did have a positive UA elevated white count concerning for UTI likely limited gram-negative pathogen 2-patient also have a recent history of left heel osteomyelitis with the patient was at the end of completion of her antibiotic therapy with the previous culture positive for drug-resistant Pseudomonas and MRSA 3-patient also tested positive for RSV Chest x-ray concerning for acute right basilar infiltrate component of pneumonia not entirely excluded 4- rash more likely due to meropenem which has been discontinued 5-patient repeat urine is positive cultures and culture have been negative patient has received adequate antibiotic therapy for underlying UTI no need for antibiotic on discharge PICC line to be discontinued discussed with admitting physician Dictation was produced using [employer] dictation software. please excuse any grammatical, word or spelling errors. Time with Patient: Less than 30
== END 2024-05-22 15:55 | DRG 871 ==
LOC: EC 07:09 → 4SSUR 11:19 → OBSVTOIN 11:20 → 4SSUR 17:04
PROVIDERS: ADMIT Internal Medicine; ATTEND Internal Medicine
DX: A41.50 Gram-negative sepsis, unspecified (principal); G93.41 Metabolic encephalopathy; J18.9 Pneumonia, unspecified organism; J44.0 Chronic obstructive pulmonary disease with (acute) lower respiratory infection; G82.20 Paraplegia, unspecified; F32.A Depression, unspecified; I10 Essential (primary) hypertension; K75.81 Nonalcoholic steatohepatitis (NASH); L97.429 Non-pressure chronic ulcer of left heel and midfoot with unspecified severity; N13.6 Pyonephrosis; N17.9 Acute kidney failure, unspecified; J21.0 Acute bronchiolitis due to respiratory syncytial virus; J98.11 Atelectasis; L98.429 Non-pressure chronic ulcer of back with unspecified severity; R65.20 Severe sepsis without septic shock; N28.89 Other specified disorders of kidney and ureter; I95.9 Hypotension, unspecified; N20.0 Calculus of kidney; E78.5 Hyperlipidemia, unspecified; F17.200 Nicotine dependence, unspecified, uncomplicated; F40.240 Claustrophobia; G89.29 Other chronic pain; R32 Unspecified urinary incontinence; H91.90 Unspecified hearing loss, unspecified ear; Y95 Nosocomial condition; Z20.822 Contact with and (suspected) exposure to COVID-19; L27.0 Generalized skin eruption due to drugs and medicaments taken internally; T36.1X5A Adverse effect of cephalosporins and other beta-lactam antibiotics, initial encounter; Z85.118 Personal history of other malignant neoplasm of bronchus and lung; Z90.81 Acquired absence of spleen; G62.9 Polyneuropathy, unspecified; G43.909 Migraine, unspecified, not intractable, without status migrainosus; Z91.81 History of falling; Z79.899 Other long term (current) drug therapy; Z86.73 Personal history of transient ischemic attack (TIA), and cerebral infarction without residual deficits; Z87.440 Personal history of urinary (tract) infections; Z87.442 Personal history of urinary calculi; Z86.14 Personal history of Methicillin resistant Staphylococcus aureus infection; Z88.1 Allergy status to other antibiotic agents
CPT/HCPCS: 36415; 70450; 71046; 74177; 76770; 80048; 80053; 80076; 80306; 80320; 81001; 82140; 82803; 83605; 84145; 85025; 85610; 85730; 86140; 87040; 87086; 87636; 93005; 94640; 94760; 96361; 96365; 96366; 96367; 96368; 96372; 96375; 99285

== ENCOUNTER 2024-05-24 18:27 | Emergency (ER) | payer MEDICARE, OTHER ==
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
[2024-05-24 21:45] LABS: Anisocytosis Slight; Basophils # (A) 0.1 k/uL (0-0.2); Basophils % (A) 0 %; Eosinophils # (A) 0.7 k/uL (0-0.7); Eosinophils % (A) 6 %; HCT 38.2 % (34.0-46.0); HGB 11.9 gm/dL (11.4-16.0); Hypochromasia Slight; Lymphocytes # (A) 2.6 k/uL (1.0-4.8); Lymphocytes % (A) 20 %; MCH 24.8 pg (25.0-35.0); MCHC 31.2 g/dL (31.0-37.0); MCV 79.4 fL (80.0-100.0); Mean Platelet Volume 8.6; Microcytosis Slight; Monocytes # (A) 0.7 k/uL (0-1.0); Monocytes % (A) 6 %; Neutrophils # (A) 8.6 k/uL (1.3-7.7); Neutrophils % (A) 67 %; Platelet Count 522 k/uL (150-450); Poikilocytosis Slight; RBC 4.82 m/uL (3.80-5.40); RDW 17.1 % (11.5-15.5); WBC 12.9 k/uL (3.8-10.6)
[2024-05-25 00:25] LABS: ALT 29 U/L (4-34); AST 34 U/L (14-36); African American GFR (CKD) >90 (>60 ml/min/1.73 sqM); Albumin 2.7 g/dL (3.5-5.0); Alkaline Phosphatase 86 U/L (38-126); Anion Gap 8 mmol/L; Blood Urea Nitrogen 12 mg/dL (7-17); Calcium 8.1 mg/dL (8.4-10.2); Carbon Dioxide 26 mmol/L (22-30); Chloride 105 mmol/L (98-107); Glucose 140 mg/dL (74-99); Non-African American GFR(CKD) >90 (>60 ml/min/1.73 sqM); Sodium 139 mmol/L (137-145); Total Bilirubin 0.3 mg/dL (0.2-1.3); Total Protein 6.4 g/dL (6.3-8.2)
[2024-05-25 14:53] LABS: Appearance,Urine Clear (Clear); Bacteria,Urine Rare /hpf; Bilirubin,Urine Negative (Negative); Blood,Urine Negative (Negative); Color,Urine Colorless; Glucose,Urine (UA) Negative (Negative); Ketones,Urine Negative (Negative); Leukocyte Esterase,Urine Large (Negative); Nitrite,Urine Negative (Negative); PH, Urine 7.5 (5.0-8.0); Protein,Urine Negative (Negative); RBC,Urine 1 /hpf (0-5); Specific Gravity,Urine 1.006 (1.001-1.035); Urobilinogen,Urine <2.0 mg/dL (<2.0); WBC,Urine 22 /hpf (0-5)
[2024-05-25 14:54] LABS: Cocaine Screen,Urine Not Detected (NotDetected); Phencyclidine Screen,Urine Not Detected (NotDetected); Urn Cannabinoid Scrn Detected (NotDetected)
[2024-05-25 14:55] LABS: Amphetamine Screen,Urine Not Detected (NotDetected); Barbiturate Screen,Urine Not Detected (NotDetected); Benzodiazepines Screen,Urine Detected (NotDetected); Methadone Screen, Urine Not Detected (NotDetected); Opiate Screen,Urine Not Detected (NotDetected); Oxycodone Screen, Urine Detected (NotDetected); Tricyclic Antidepressant,Urine Not Detected (NotDetected)
[2024-05-26 15:33] VITALS: RESP 18
[2024-05-26] MEDS: ACETAMINOPHEN TAB 500 MG TAB PO STA (18:33)
[2024-05-26] MEDS: POTASSIUM CHLORIDE ER 20 MEQ TAB.ER PO STA (18:34)
[2024-05-26] MEDS: MAGNESIUM OXIDE 400 MG TAB PO STA ×2 (18:35)
[2024-05-26] MEDS: HYDROmorphone 1 MG/ML 1 ML SYRINGE IM STA (18:36)
[2024-05-26] MEDS: POTASSIUM BICARBONATE/CIT AC 20 MEQ TABLET.EFF PO ONE (18:36)
[2024-05-27 10:50] VITALS: TEMP 98.4
[2024-05-27 12:29] VITALS: PULSE 110
[2024-05-27 14:07] VITALS: BP 128/100
== END 2024-05-27 15:02 ==
LOC: SUPCPDRO 18:27 → EC 18:27
DX: R45.850 Homicidal ideations (principal); G82.20 Paraplegia, unspecified; F17.200 Nicotine dependence, unspecified, uncomplicated; Z88.1 Allergy status to other antibiotic agents
CPT/HCPCS: 36415; 80053; 80306; 81001; 85025; 87635; 93005; 96372; 99285

== ENCOUNTER 2024-07-09 20:11 | Inpatient (IN) | payer MEDICARE, OTHER ==
--- NOTE | 2024-07-09 21:07 | ED ---
Abdominal Pain HPI - General Source: patient, EMS, RN notes reviewed Mode of arrival: EMS Limitations: no limitations - History of Present Illness MD Complaint: abdominal pain <Afua Dorman - Last Filed: 07/10/24 00:47> <Leroy Da Silva - Last Filed: 07/10/24 19:24> - General Chief Complaint: Abdominal Pain Stated Complaint: abd pain Time Seen by Provider: 07/09/24 20:14 - History of Present Illness Initial Comments: This is a 64-year-old female who presents to the emergency department for abdominal pain. States that it started a week ago and seems to be getting wors e. Pain is across the upper abdomen. Denies any nausea/vomiting or changes in bowel/bladder habits. Denies any correlation with foods. Pain does not radiate elsewhere. It is unclear if she has experienced similar pain in the past. (Afua Dorman) - Related Data Home Medications Medication Instructions Recorded Confirmed ALPRAZolam [Xanax] 0.5 mg PO TID PRN 05/24/24 07/10/24 Cyclobenzaprine [Flexeril] 5 mg PO BID@0900,1200 PRN 05/24/24 07/10/24 Acetaminophen [Tylenol Extra 500 mg PO Q6H PRN 07/10/24 07/10/24 Strength] Amino Acids/Protein Hydrolys 30 ml PO DAILY 07/10/24 07/10/24 [Pro-Stat Awc Liquid] Baclofen 10 mg PO DAILY 07/10/24 07/10/24 Buprenorphine [Butrans 7.5 MCG/HR] 1 patch TRANSDERM FR 07/10/24 07/10/24 DULoxetine HCL [Cymbalta] 60 mg PO BID 07/10/24 07/10/24 Ensure 1 can PO BID@0900,1700 07/10/24 07/10/24 Mag Hydrox/Aluminum Hyd/Simeth 30 ml PO Q6H PRN 07/10/24 07/10/24 [Mylanta Maximum Strength Liq] Morphine Sulfate Ir [MSIR] 15 mg PO Q6HR PRN 07/10/24 07/10/24 Sennosides/Docusate Sodium [Senna 1 tab PO DAILY 07/10/24 07/10/24 Plus 8.6-50 mg Tablet] Tetrahydrozoline 0.05% Ophth 1 drop BOTH EYES QID PRN 07/10/24 07/10/24 [Visine Eye Drops] hydrALAZINE HCL [Apresoline] 50 mg PO TID PRN 07/10/24 07/10/24 polyethylene glycoL 3350 [Miralax] 17 gm PO MOWEFR@2100 07/10/24 07/10/24 Allergies Allergy/AdvReac Type Severity Reaction Status Date / Time gentamicin Allergy Anaphylaxis Verified 07/10/24 09:23 Iodinated Contrast Media Allergy Rash/Hives Verified 07/10/24 09:23 Review of Systems ROS Other: All systems not noted in ROS Statement are negative. <Afua Dorman - Last Filed: 07/10/24 00:47> ROS Other: All systems not noted in ROS Statement are negative. <Leroy Da Silva - Last Filed: 07/10/24 19:24> ROS Statement: Those systems with pertinent positive or pertinent negative responses have been documented in the HPI. Past Medical History Past Medical History: Cancer, Hearing Disorder / Deafness Additional Past Medical History / Comment(s): back pain; "several tia's-Last TIA 1 1/2 YEARS AGO, pluerisy, migraines, past falls, "was told at [facility] she had non-alcoholic cirrhosis". lung cancer History of Any Multi-Drug Resistant Organisms: None Reported Past Surgical History: Back Surgery, Breast Surgery, Cholecystectomy, Hysterectomy Additional Past Surgical History / Comment(s): back sx, neck sx. spleenectomy- d/t injury; benign R Breast lumpectomy, sinus sx Past Anesthesia/Blood Transfusion Reactions: No Reported Reaction Additional Past Anesthesia/Blood Transfusion Reaction / Comment(s): Pt hs clausterphobia Past Psychological History: Depression Smoking Status: Former smoker Past Alcohol Use History: None Reported Past Drug Use History: None Reported - Past Family History Mother Family Medical History: Cancer Additional Family Medical History / Comment(s): Father History Unknown: Yes Family Medical History: No Reported History Additional Family Medical History / Comment(s): Father was murdered <Afua Dorman - Last Filed: 07/10/24 00:47> General Exam Limitations: no limitations General appearance: alert, in no apparent distress Head exam: Present: atraumatic, normocephalic, normal inspection Respiratory exam: Present: normal lung sounds bilaterally. Absent: respiratory distress, wheezes, rales, rhonchi, stridor Cardiovascular Exam: Present: regular rate, normal rhythm GI/Abdominal exam: Present: soft, tenderness (Upper abdomen), normal bowel sounds. Absent: distended Neurological exam: Present: alert, oriented X3, CN II-XII intact Psychiatric exam: Present: normal affect, normal mood Skin exam: Present: warm, dry, intact, normal color. Absent: rash <Afua Dorman - Last Filed: 07/10/24 00:47> Course Vital Signs 07/09/24 07/09/24 07/10/24 20:16 23:08 01:09 Temperature 99.2 F 98.5 F Pulse Rate 75 76 75 Respiratory 18 18 18 Rate Blood Pressure 113/77 129/76 115/92 O2 Sat by Pulse 95 95 Oximetry 07/10/24 07/10/24 07/10/24 02:42 05:12 06:03 Temperature 97.0 F L 97.1 F L Pulse Rate 72 65 75 Respiratory 18 18 16 Rate Blood Pressure 126/78 144/82 121/80 O2 Sat by Pulse 95 96 Oximetry 07/10/24 07/10/24 07/10/24 07:37 10:00 11:00 Temperature Pulse Rate 74 82 80 Respiratory 20 18 18 Rate Blood Pressure 121/81 145/95 125/93 O2 Sat by Pulse 91 L 95 95 Oximetry 07/10/24 07/10/24 07/10/24 12:00 13:00 17:23 Temperature Pulse Rate 92 95 82 Respiratory 18 18 19 Rate Blood Pressure 130/80 131/89 117/76 O2 Sat by Pulse 98 92 L 95 Oximetry 07/10/24 18:45 Temperature 97.8 F Pulse Rate 82 Respiratory 19 Rate Blood Pressure 108/69 O2 Sat by Pulse 95 Oximetry Medical Decision Making - Lab Data Result diagrams: 07/09/24 21:01 07/09/24 21:01 - Radiology Data Radiology results: report reviewed, image reviewed <Afua Dorman - Last Filed: 07/10/24 00:47> - Lab Data Result diagrams: 07/09/24 21:01 07/09/24 21:01 <Leroy Da Silva - Last Filed: 07/10/24 19:24> - Medical Decision Making This is a 64-year-old female who presents to the emergency department for abdominal pain. Was pt. sent in by a medical professional or institution? @ -No Did you speak to anyone other than the patient for history? @ -No Did you review nursing and triage notes? @ -Yes, and I agree, it is accurate with regards to the patient's symptoms. Were old charts reviewed? @ -Urology consult from 05/20/2024 advising that she likely had a neurogenic bladder as result of her spinal cord injury, causing hydronephrosis. Differential Diagnosis? @ -Differential Abdominal Pain Women: Appendicitis, Cholecystitis, diverticulosis, ischemic bowel, pancreatitis, hepatitis, UTI, gastroenteritis, AAA, incarcerated hernia, bowel obstruction, constipation, inflammatory bowel, hepatitis, peptic ulcer disease, splenic infarction, perforated viscus, vulvitis, ovarian torsion, PID, kidney stone, placenta abruption, this is not meant to be an all-inclusive list EKG interpreted by me (3pts min.)? @ -EKG interpreted by me demonstrating the following: Sinus rhythm. Ventricular rate 74 bpm, LA interval 193 ms, QRS duration 100 ms, QTc 428 ms. X-rays interpreted by me (1pt min.)? @ -Not obtained CT interpreted by me (1pt min.)? @ -CT scan of the abdomen and pelvis obtained. My interpretation identifies b ilateral hydronephrosis. U/S interpreted by me (1pt. min.)? @ -Not obtained What testing was considered but not performed? (CT, X-rays, U/S, labs)? Why? @ -None What meds were considered but not given? Why? @ -None Did you discuss the management of the patient with other professionals? @ -No Did you reconcile home meds? @ -No Was smoking cessation discussed for >3mins.? @ -No Was critical care preformed (if so, how long)? @ -No Were there social determinants of health that impacted care today? How? ( Homelessness, low income, unemployed, alcoholism, drug addiction, transportation, low edu. Level, literacy, decrease access to med. care, snf, rehab)? @ -No Was there de-escalation of care discussed even if they declined? (Discuss DNR or withdrawal of care, Hospice)? @ -No What co-morbidities impacted this encounter? (DM, HTN, Smoking, COPD, CAD, Cancer, CVA, Hep., AIDS, mental health diagnosis, sleep apnea, morbid obesity)? @ -Spinal cord injury Was patient admitted / discharged? @ -Lab work demonstrates mild leukocytosis with a white blood cell count of 11.61. She has mild hypokalemia with a potassium of 3.2. She was given 1 L of IV fluids and [address] mEq of K-Dur. CT scan of the abdomen and pelvis demonstrates bilateral hydronephrosis with moderate bilateral hydroureter extending to the urinary bladder. She also has diffuse wall thickening through the urinary bladder. On review of patient's prior records, she had a urology consult on 05/20/2024 discussing the hydronephrosis that had been present previously. This was thought to be related to a neurogenic bladder caused by a spinal cord inj ury. Case signed out to Leroy Da Silva PA-C, at shift completion pending UA results and disposition. Undiagnosed new problem with uncertain prognosis? @ -None Drug Therapy requiring intensive monitoring for toxicity (Heparin, Nitro, Insulin, Cardizem)? @ -None Were any procedures done? @ -None (Afua Dorman) Patient signed out to me pending UA. Urine is positive for infection with moderate blood and large leukocytes. Given the patient's multiple comorbidities and her bilateral hydronephrosis, she will be admitted for IV antibiotics. I discussed this case with my attending Dr. Fang Diagnosis/symptom? @UTI Acute, or Chronic, or Acute on Chronic? @Acute Uncomplicated (without systemic symptoms) or Complicated (systemic symptoms)? @Complicated Side effects of treatment? @None Exacerbation, Progression, or Severe Exacerbation] @No Poses a threat to life or bodily function? @Yes (Leroy Da Silva) - Lab Data Lab Results 07/09/24 07/09/24 07/09/24 Range/Units 21:01 21:01 21:01 WBC 11.61 H (4.50-10.00) 10*3/uL RBC 4.50 (4.10-5.20) 10*6/uL Hgb 11.6 L (12.0-15.0) g/dL Hct 35.1 L (37.2-46.3) % MCV 78.0 L (80.0-97.0) fL MCH 25.8 L (27.0-32.0) pg MCHC 33.0 (32.0-37.0) g/dL Plt Count 411 (140-440) 10*3/uL MPV 9.5 (9.5-12.2) fL Immature Gran % (Auto) 0.4 % Neutrophils % 50.4 % Lymphocytes % 27.2 % Monocytes % 14.8 % Eosinophils % 6.7 % Basophils % 0.5 % Immature Gran # 0.05 H (0.00-0.04) 10*3/uL Neutrophils # 5.84 (1.80-7.70) 10*3/uL Lymphocytes # 3.16 (0.90-5.00) 10*3/uL Monocytes # 1.72 H (0.20-1.00) 10*3/uL Eosinophils # 0.78 H (0.04-0.35) 10*3/uL Basophils # 0.06 (0.00-0.10) 10*3/uL Sodium 136 L (137-145) mmol/L Potassium 3.2 L (3.5-5.1) mmol/L Chloride 102 (98-107) mmol/L Carbon Dioxide 24 (22-30) mmol/L Anion Gap 10 mmol/L BUN 13 (7-17) mg/dL Creatinine 0.54 (0.52-1.04) mg/dL Est GFR (CKD-EPI)AfAm >90 (>60 ml/min/1.73 sqM) Est GFR (CKD-EPI)NonAf >90 (>60 ml/min/1.73 sqM) Glucose 86 (74-99) mg/dL Plasma Lactic Acid Paresh 1.2 (0.7-2.0) mmol/L Calcium 9.2 (8.4-10.2) mg/dL Total Bilirubin 0.7 (0.2-1.3) mg/dL AST 60 H (14-36) U/L ALT 31 (4-34) U/L Alkaline Phosphatase 95 (38-126) U/L Total Protein 7.0 (6.3-8.2) g/dL Albumin 2.9 L (3.5-5.0) g/dL Amylase 39 (30-110) U/L Lipase 49 (23-300) U/L Urine Color Urine Appearance (Clear) Urine pH (5.0-8.0) Ur Specific [place] (1.001-1.035) Urine Protein (Negative) Urine Glucose (UA) (Negative) Urine Ketones (Negative) Urine Blood (Negative) Urine Nitrite (Negative) Urine Bilirubin (Negative) Urine Urobilinogen (<2.0) mg/dL Ur Leukocyte Esterase (Negative) Urine RBC (0-5) /hpf Urine WBC (0-5) /hpf Urine WBC Clumps (None) /hpf Ur Squamous Epith Cells (0-4) /hpf Urine Bacteria (None) /hpf Urine Mucus (None) /hpf Urine Yeast (Budding) (None) /hpf 07/10/24 Range/Units 01:09 WBC (4.50-10.00) 10*3/uL RBC (4.10-5.20) 10*6/uL Hgb (12.0-15.0) g/dL Hct (37.2-46.3) % MCV (80.0-97.0) fL MCH (27.0-32.0) pg MCHC (32.0-37.0) g/dL Plt Count (140-440) 10*3/uL MPV (9.5-12.2) fL Immature Gran % (Auto) % Neutrophils % % Lymphocytes % % Monocytes % % Eosinophils % % Basophils % % Immature Gran # (0.00-0.04) 10*3/uL Neutrophils # (1.80-7.70) 10*3/uL Lymphocytes # (0.90-5.00) 10*3/uL Monocytes # (0.20-1.00) 10*3/uL Eosinophils # (0.04-0.35) 10*3/uL Basophils # (0.00-0.10) 10*3/uL Sodium (137-145) mmol/L Potassium (3.5-5.1) mmol/L Chloride (98-107) mmol/L Carbon Dioxide (22-30) mmol/L Anion Gap mmol/L BUN (7-17) mg/dL Creatinine (0.52-1.04) mg/dL Est GFR (CKD-EPI)AfAm (>60 ml/min/1.73 sqM) Est GFR (CKD-EPI)NonAf (>60 ml/min/1.73 sqM) Glucose (74-99) mg/dL Plasma Lactic Acid Paresh (0.7-2.0) mmol/L Calcium (8.4-10.2) mg/dL Total Bilirubin (0.2-1.3) mg/dL AST (14-36) U/L ALT (4-34) U/L Alkaline Phosphatase (38-126) U/L Total Protein (6.3-8.2) g/dL Albumin (3.5-5.0) g/dL Amylase (30-110) U/L Lipase (23-300) U/L Urine Color Light Yellow Urine Appearance Turbid H (Clear) Urine pH 7.5 (5.0-8.0) Ur Specific [place] 1.031 (1.001-1.035) Urine Protein 1+ H (Negative) Urine Glucose (UA) Negative (Negative) Urine Ketones Negative (Negative) Urine Blood Moderate H (Negative) Urine Nitrite Negative (Negative) Urine Bilirubin Negative (Negative) Urine Urobilinogen <2.0 (<2.0) mg/dL Ur Leukocyte Esterase Large H (Negative) Urine RBC 16 H (0-5) /hpf Urine WBC >182 H (0-5) /hpf Urine WBC Clumps Moderate H (None) /hpf Ur Squamous Epith Cells 2 (0-4) /hpf Urine Bacteria Few H (None) /hpf Urine Mucus Rare H (None) /hpf Urine Yeast (Budding) Few H (None) /hpf Disposition <Afua Dorman - Last Filed: 07/10/24 00:47> Time of Disposition: 02:33 <Leroy Da Silva - Last Filed: 07/10/24 19:24> Clinical Impression: UTI (urinary tract infection) Disposition: ADMITTED IP TO THIS HOSP Condition: Fair
[2024-07-09 21:21] LABS: Basophils # (A) 0.06 10*3/uL (0.00-0.10); Basophils % (A) 0.5 %; Eosinophils # (A) 0.78 10*3/uL (0.04-0.35); Eosinophils % (A) 6.7 %; HCT 35.1 % (37.2-46.3); HGB 11.6 g/dL (12.0-15.0); Lymphocytes # (A) 3.16 10*3/uL (0.90-5.00); Lymphocytes % (A) 27.2 %; MCH 25.8 pg (27.0-32.0); Mean Platelet Volume 9.5 fL (9.5-12.2); Monocytes # (A) 1.72 10*3/uL (0.20-1.00); Monocytes % (A) 14.8 %; Neutrophils # (A) 5.84 10*3/uL (1.80-7.70); Neutrophils % (A) 50.4 %; Platelet Count 411 10*3/uL (140-440); RDW 17.8 % (11.5-14.5); WBC 11.61 10*3/uL (4.50-10.00)
[2024-07-09 21:33] LABS: ALT 31 U/L (4-34); African American GFR (CKD) >90 (>60 ml/min/1.73 sqM); Albumin 2.9 g/dL (3.5-5.0); Amylase 39 U/L (30-110); Anion Gap 10 mmol/L; Blood Urea Nitrogen 13 mg/dL (7-17); Calcium 9.2 mg/dL (8.4-10.2); Carbon Dioxide 24 mmol/L (22-30); Chloride 102 mmol/L (98-107); Glucose 86 mg/dL (74-99); Lipase 49 U/L (23-300); Non-African American GFR(CKD) >90 (>60 ml/min/1.73 sqM); Sodium 136 mmol/L (137-145); Total Bilirubin 0.7 mg/dL (0.2-1.3)
[2024-07-09 21:34] LABS: AST 60 U/L (14-36); Alkaline Phosphatase 95 U/L (38-126); Potassium 3.2 mmol/L (3.5-5.1)
[2024-07-09] MEDS: SODIUM CHLORIDE 0.9% 1,000 ML IV ONE (22:06)
[2024-07-09] MEDS: diphenhydrAMINE 50 MG/ML 1 ML VIAL IVP STA (22:07)
[2024-07-09] MEDS: MORPHINE SULFATE 2 MG/ML SYRINGE IVP STA (22:08)
[2024-07-09] MEDS: methylPREDNISolone SOD SUCCI 125 MG/2 ML VIAL IV STA (22:08)
[2024-07-09] MEDS: FAMOTIDINE 20 MG/2 ML VIAL IV STA (22:08)
[2024-07-09] MEDS: POTASSIUM CHLORIDE ER 20 MEQ TAB.ER PO STA (23:02)
--- NOTE | 2024-07-09 23:18 | CT ---
EXAMINATION TYPE: CT abdomen pelvis w con DATE OF EXAM: 07/09/2024 10:45 PM COMPARISON: 05/17/2024 CLINICAL INDICATION: Female, 64 years old with history of Upper abdominal pain, pt presents with wors ening chronic abd pain. hx of breast surgery, back surgery, hysterotomy, cholecystectomy. ISO 300 100 ml, TECHNIQUE: Axial images were obtained from above the diaphragm to the pubic rami in the axial plane a t 5 mm thick sections. Reconstructed images are reviewed on the computer in the coronal plane. CONTRAST: 100 mL of Isovue 300. Study performed without Oral Contrast DLP: mGycm, Automated exposure control for dose reduction was used. FINDINGS: Limited CT sections are obtained the lung bases. There is a small right pleural effusion.. CT ABDOMEN: Liver: Normal Spleen: Absent. A couple small splenule may remain present. Pancreas: Normal Adrenal glands: The adrenal glands are normal. Gallbladder: Surgically absent Kidneys: No masses are evident. No hydronephrosis is present. No cysts are present. Several puncta te calcifications are within the bilateral kidneys. There appears to be mild bilateral hydronephrosis and moderate hydroureter. Hydroureter extends to the urinary bladder. Diffuse urinary bladder wall t hickening is present. Obstructing etiology is not identified. Aorta: Vascular calcification is within the aorta. Inferior vena cava: Normal. CT PELVIS: Loops of bowel within the abdomen and pelvis are normal. This study is without oral contrast limi ts bowel evaluation Appendix: Normal as visualized. Urinary bladder: Partially decompressed. There is diffuse wall thickening. Correlate for cystitis. No specific abnormality to account for the hydroureter is not identified. Genitourinary structures: Uterus and ovaries are not identified. Osseous structures: No suspicious lytic or sclerotic lesions. Prior surgery in the lumbar spine is ev ident. Prior surgery in the lower thoracic spine is evident. IMPRESSION: 1. Bilateral hydronephrosis with moderate bilateral hydroureter extending to the urinary bladder. Et iology not identified. 2. Diffuse wall thickening through the urinary bladder. Consider cystitis. 3. Small right pleural effusion [facility], Workstation: [facility], 07/09/2024 11:15 PM
[2024-07-10 01:50] LABS: Appearance,Urine Turbid (Clear); Bacteria,Urine Few /hpf; Bilirubin,Urine Negative (Negative); Blood,Urine Moderate (Negative); Budding Yeast,Urine Few /hpf; Color,Urine Light Yellow; Glucose,Urine (UA) Negative (Negative); Ketones,Urine Negative (Negative); Leukocyte Esterase,Urine Large (Negative); Mucus,Urine Rare /hpf; Nitrite,Urine Negative (Negative); PH, Urine 7.5 (5.0-8.0); Protein,Urine 1+ (Negative); RBC,Urine 16 /hpf (0-5); Specific Gravity,Urine 1.031 (1.001-1.035); Squamous Epithelial Cell,Urine 2 /hpf (0-4); Urobilinogen,Urine <2.0 mg/dL (<2.0); WBC,Urine >182 /hpf (0-5)
[2024-07-10] MEDS ORDERED: NALOXONE 0.4 MG/ML 1 ML VIAL IV PRN (02:33)
[2024-07-10] MEDS: cefTRIAXone IN SWFI 1,000 MG/10 ML SYRINGE IVP STA (03:37)
[2024-07-10] MEDS: SODIUM CHLORIDE 0.9% 1,000 ML IV SCH (03:47)
[2024-07-10] MEDS ORDERED: TETRAHYDROZOLINE 0.05% OPHTH DROPS 15 ML BTL BOTH EYES PRN (12:36)
--- NOTE | 2024-07-10 12:42 | P.HPIM ---
History of Present Illness Patient 64-year-old female came in with bilateral sharp severe abdominal pain without any dysuria or increased urinary urgency or frequency. Patient had a CT of the abdomen which showed bilateral hydronephrosis with thickened urinary bladder. Patient urine is significantly abnormal with hide elevated white count in the urine. Patient was given a dose of Rocephin and was admitted. Patient does not have any fever chills does have leukocytosis. Patient is on multiple narcotic medications as an outpatient. REVIEW OF SYSTEMS: All other systems are negative except those mentioned in the HPI PHYSICAL EXAMINATION: GENERAL: The patient is alert and oriented x3, not in any acute distress. Well developed, well nourished. HEENT: Pupils are round and equally reacting to light. EOMI. No scleral icterus. No conjunctival pallor. Normocephalic, atraumatic. No pharyngeal erythema. No thyromegaly. CARDIOVASCULAR: S1 and S2 present. No murmurs, rubs, or gallops. PULMONARY: Chest is clear to auscultation, no wheezing or crackles. ABDOMEN: There is bilateral lower abdominal tenderness, nondistended, normoactive bowel sounds. No palpable organomegaly. MUSCULOSKELETAL: No joint swelling or deformity. EXTREMITIES: No cyanosis, clubbing, or pedal edema. NEUROLOGICAL: Gross neurological examination did not reveal any focal deficits. SKIN: No rashes. Assessment and plan -Bilateral lower abdominal pain: Probably secondary to urinary tract infection cystitis with hydronephrosis. Urology was consulted patient will be started on Rocephin 2 g daily while awaiting urine cultures - Leukocytosis due to assessment #1 - Hypokalemia due to IV fluids potassium will be replaced - Depression Chronic pain for which patient is on multiple opiates, some of these were resumed. DVT prophylaxis: Lovenox Past Medical History Past Medical History: Cancer, Hearing Disorder / Deafness Additional Past Medical History / Comment(s): back pain; "several tia's-Last TIA 1 1/2 YEARS AGO, pluerisy, migraines, past falls, "was told at [facility] she had non-alcoholic cirrhosis". lung cancer History of Any Multi-Drug Resistant Organisms: None Reported Past Surgical History: Back Surgery, Breast Surgery, Cholecystectomy, Hysterectomy Additional Past Surgical History / Comment(s): back sx, neck sx. spleenectomy- d/t injury; benign R Breast lumpectomy, sinus sx Past Anesthesia/Blood Transfusion Reactions: No Reported Reaction Additional Past Anesthesia/Blood Transfusion Reaction / Comment(s): Pt hs clausterphobia Past Psychological History: Depression Smoking Status: Former smoker Past Alcohol Use History: None Reported Past Drug Use History: None Reported - Past Family History Mother Family Medical History: Cancer Additional Family Medical History / Comment(s): Father History Unknown: Yes Family Medical History: No Reported History Additional Family Medical History / Comment(s): Father was murdered Medications and Allergies Home Medications Medication Instructions Recorded Confirmed Type ALPRAZolam [Xanax] 0.5 mg PO TID PRN 05/24/24 07/10/24 History Cyclobenzaprine [Flexeril] 5 mg PO BID@0900,1200 PRN 05/24/24 07/10/24 History Acetaminophen [Tylenol Extra 500 mg PO Q6H PRN 07/10/24 07/10/24 History Strength] Amino Acids/Protein Hydrolys 30 ml PO DAILY 07/10/24 07/10/24 History [Pro-Stat Awc Liquid] Baclofen 10 mg PO DAILY 07/10/24 07/10/24 History Buprenorphine [Butrans 7.5 MCG/HR] 1 patch TRANSDERM FR 07/10/24 07/10/24 History DULoxetine HCL [Cymbalta] 60 mg PO BID 07/10/24 07/10/24 History Ensure 1 can PO BID@0900,1700 07/10/24 07/10/24 History Mag Hydrox/Aluminum Hyd/Simeth 30 ml PO Q6H PRN 07/10/24 07/10/24 History [Mylanta Maximum Strength Liq] Morphine Sulfate Ir [MSIR] 15 mg PO Q6HR PRN 07/10/24 07/10/24 History Sennosides/Docusate Sodium [Senna 1 tab PO DAILY 07/10/24 07/10/24 History Plus 8.6-50 mg Tablet] Tetrahydrozoline 0.05% Ophth 1 drop BOTH EYES QID PRN 07/10/24 07/10/24 History [Visine Eye Drops] hydrALAZINE HCL [Apresoline] 50 mg PO TID PRN 07/10/24 07/10/24 History polyethylene glycoL 3350 [Miralax] 17 gm PO MOWEFR@2100 07/10/24 07/10/24 History Allergies Allergy/AdvReac Type Severity Reaction Status Date / Time gentamicin Allergy Anaphylaxis Verified 07/10/24 09:23 Iodinated Contrast Media Allergy Rash/Hives Verified 07/10/24 09:23 Physical Exam Vitals: Vital Signs Temp Pulse Resp BP Pulse Ox 07/10/24 12:00 92 18 130/80 98 07/10/24 11:00 80 18 125/93 95 07/10/24 10:00 82 18 145/95 95 07/10/24 07:37 74 20 121/81 91 L 07/10/24 06:03 97.1 F L 75 16 121/80 96 07/10/24 05:12 97.0 F L 65 18 144/82 95 07/10/24 02:42 72 18 126/78 07/10/24 01:09 75 18 115/92 07/09/24 23:08 98.5 F 76 18 129/76 95 07/09/24 20:16 99.2 F 75 18 113/77 95 Intake and Output 07/09/24 07/10/24 07/10/24 22:59 06:59 14:59 Other: Weight 81.647 kg Results CBC & Chem 7: 07/09/24 21:01 07/09/24 21:01 Labs: Abnormal Lab Results - Last 24 Hours (Table) 07/09/24 07/09/24 07/10/24 Range/Units 21:01 21:01 01:09 WBC 11.61 H (4.50-10.00) 10*3/uL Hgb 11.6 L (12.0-15.0) g/dL Hct 35.1 L (37.2-46.3) % MCV 78.0 L (80.0-97.0) fL MCH 25.8 L (27.0-32.0) pg Immature Gran # 0.05 H (0.00-0.04) 10*3/uL Monocytes # 1.72 H (0.20-1.00) 10*3/uL Eosinophils # 0.78 H (0.04-0.35) 10*3/uL Sodium 136 L (137-145) mmol/L Potassium 3.2 L (3.5-5.1) mmol/L AST 60 H (14-36) U/L Albumin 2.9 L (3.5-5.0) g/dL Urine Appearance Turbid H (Clear) Urine Protein 1+ H (Negative) Urine Blood Moderate H (Negative) Ur Leukocyte Esterase Large H (Negative) Urine RBC 16 H (0-5) /hpf Urine WBC >182 H (0-5) /hpf Urine WBC Clumps Moderate H (None) /hpf Urine Bacteria Few H (None) /hpf Urine Mucus Rare H (None) /hpf Urine Yeast (Budding) Few H (None) /hpf
[2024-07-10] MEDS: MORPHINE SULFATE IR 15 MG TABLET PO PRN (13:15)
[2024-07-10] MEDS: SENNOSIDES-DOCUSATE SODIUM 1 EACH TAB PO SCH (13:16)
[2024-07-10] MEDS: POTASSIUM CHLORIDE ER 20 MEQ TAB.ER PO STA (13:16)
[2024-07-10] MEDS: cefTRIAXone 2 GM in DEXTROSE 5% IN WATER 50 ML IVPB SCH (13:20)
[2024-07-10] MEDS ORDERED: NON FORMULARY DRUG (Ensure 1 CAN Ml) PO SCH (17:00)
[2024-07-10] MEDS: DULoxetine HCL 60 MG CAPSULE.DR PO SCH (21:15)
[2024-07-10] MEDS: polyethylene glycoL 3350 17 GM POWD.PACK PO SCH (23:34)
[2024-07-11] MEDS: ACETAMINOPHEN TAB 500 MG TAB PO PRN (00:21)
[2024-07-11] MEDS: CYCLOBENZAPRINE 5 MG TAB PO PRN (05:55)
[2024-07-11 08:27] LABS: HCT 32.9 % (37.2-46.3); HGB 10.2 g/dL (12.0-15.0); MCH 25.2 pg (27.0-32.0); MCV 81.4 FL (80.0-97.0); Mean Platelet Volume 10.7 FL (9.5-12.2); NRBC Per 100 WBC 0 X 10*3/uL (0.00-0.01); Platelet Count 483 X 10*3/uL (140-440); RBC 4.04 X 10*6/uL (4.10-5.20); RDW 18.5 % (11.5-14.5); WBC 15.36 X 10*3/uL (4.50-10.00)
[2024-07-11] MEDS: ENOXAPARIN 40 MG/0.4 ML SYRINGE SQ SCH (08:49)
[2024-07-11 09:04] LABS: BUN/Creat Ratio 25.83 Ratio (12.00-20.00); Blood Urea Nitrogen 15.5 mg/dL (9.0-27.0); Calcium 8.4 mg/dL (8.7-10.3); Carbon Dioxide 21.7 mmol/L (21.6-31.8); Chloride 107 mmol/L (96-109); Glucose 97 mg/dL (70-110); Magnesium 1.8 mg/dL (1.5-2.4); Potassium 3.5 mmol/L (3.5-5.5); Sodium 140 mmol/L (135-145)
[2024-07-11 13:57] VITALS: BMI 34.0
[2024-07-11] MEDS: methylPREDNISolone SOD SUCCI 125 MG/2 ML VIAL IV ONE (16:00)
[2024-07-11] MEDS: diphenhydrAMINE 50 MG/ML 1 ML VIAL IVP ONE (21:31)
[2024-07-11] MEDS: FAMOTIDINE 20 MG/2 ML VIAL IV ONE (21:31)
--- NOTE | 2024-07-11 21:45 | P.PN ---
Subjective Progress Note Date: 07/11/24 Patient 64-year-old female came in with bilateral sharp severe abdominal pain without any dysuria or increased urinary urgency or frequency. Patient had a CT of the abdomen which showed bilateral hydronephrosis with thickened urinary bladder. Patient urine is significantly abnormal with hide elevated white count in the urine. Patient was given a dose of Rocephin and was admitted. Patient does not have any fever chills does have leukocytosis. Patient is on multiple narcotic medications as an outpatient. 07/11/2024 Patient with bilateral hydronephrosis and hydroureter currently pending urology consultation. Continues on IV antibiotics and urine culture pending. Reports RUQ abdominal pain with radiation to the LUQ. CT chest has been ordered. REVIEW OF SYSTEMS: All other systems are negative except those mentioned in the HPI PHYSICAL EXAMINATION: GENERAL: The patient is alert and oriented x3, not in any acute distress. Well developed, well nourished. HEENT: Pupils are round and equally reacting to light. EOMI. No scleral icterus. No conjunctival pallor. Normocephalic, atraumatic. No pharyngeal erythema. No thyromegaly. CARDIOVASCULAR: S1 and S2 present. No murmurs, rubs, or gallops. PULMONARY: Chest is clear to auscultation, no wheezing or crackles. ABDOMEN: There is bilateral lower abdominal tenderness, nondistended, normoactive bowel sounds. No palpable organomegaly. MUSCULOSKELETAL: No joint swelling or deformity. EXTREMITIES: No cyanosis, clubbing, or pedal edema. NEUROLOGICAL: Gross neurological examination did not reveal any focal deficits. SKIN: No rashes. Assessment and plan - Bilateral lower abdominal pain: Probably secondary to urinary tract infection cystitis with hydronephrosis. Urology was consulted patient will be started on Rocephin 2 g daily while awaiting urine cultures - Leukocytosis due to assessment #1 - Hypokalemia due to IV fluids potassium will be replaced - Depression - Hx TIA - Hx lung cancer - Splenectomy - Former Smoker Chronic pain for which patient is on multiple opiates, some of these were resumed. DVT prophylaxis: Lovenox Check lipase. Check chest CT. Add IV morphine Q6h. The impression and plan of care has been dictated by Sara Altamirano, Nurse Practitioner as directed. Dr. Richy MD I have performed a history and physical examination and medical decision making of this patient, discussed the same with the dictator, and agree with the dictators assessment and plan as written, documented as a scribe. Based on total visit time, I have performed more than 50% of this visit. Objective - Vital Signs Vital signs: Vital Signs Temp 98.1 F 07/11/24 20:00 Pulse 74 07/11/24 20:00 Resp 16 07/11/24 20:00 BP 123/77 07/11/24 20:00 Pulse Ox 96 07/11/24 20:00 FiO2 Intake & Output 07/11/24 07/11/24 07/12/24 06:59 18:59 06:59 Output Total 500 600 Balance -500 -600 Weight 81.647 kg 81.647 kg Output: Urine 500 600 Other: Voiding Method Diaper Diaper Incontinent Incontinent External Catheter External Catheter # Voids 2 1 # Bowel Movements 1 1 - Labs CBC & Chem 7: 07/11/24 04:17 07/11/24 04:17 Labs: Abnormal Lab Results - Last 24 Hours (Table) 07/11/24 07/11/24 Range/Units 04:17 04:17 WBC 15.36 H (4.50-10.00) X 10*3/uL RBC 4.04 L (4.10-5.20) X 10*6/uL Hgb 10.2 L (12.0-15.0) g/dL Hct 32.9 L (37.2-46.3) % MCH 25.2 L (27.0-32.0) pg MCHC 31.0 L (32.0-37.0) g/dL RDW 18.5 H (11.5-14.5) % Plt Count 483 H (140-440) X 10*3/uL BUN/Creatinine Ratio 25.83 H (12.00-20.00) Ratio Calcium 8.4 L (8.7-10.3) mg/dL Microbiology - Last 24 Hours (Table) 07/10/24 01:09 Urine Culture - Preliminary Urine,Voided Assessment and Plan Time with Patient: Less than 30
--- NOTE | 2024-07-11 21:50 | P.GSCN ---
History of Present Illness Consult date: 07/11/24 Reason for Consult: Bilateral hydronephrosis History of present illness: This is a 64-year-old female with multiple comorbidities. Admitted to the hospital with abdominal pain. She underwent a CT abdomen pelvis that showed evidence of bilateral hydronephrosis with a fairly thickened bladder wall. This is a chronic finding as this was seen on a previous CT in March of this year. Her creatinine is stable at 0.6 which is at her baseline. She indicates her abdominal pain is in the upper quadrant. She denies any flank pain or any radi ation to the flank. Denies any gross hematuria dysuria. She is incontinent of urine, but urine within the canister is clear. No previous history of recurrent UTIs or kidney stones. No previous renal or bladder surgeries. 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 lung cancer History of Any Multi-Drug Resistant Organisms: None Reported Past Surgical History: Back Surgery, Breast Surgery, Cholecystectomy, Hysterectomy Additional Past Surgical History / Comment(s): back sx, neck sx. spleenectomy- d/t injury; benign R Breast lumpectomy, sinus sx Past Anesthesia/Blood Transfusion Reactions: No Reported Reaction Additional Past Anesthesia/Blood Transfusion Reaction / Comm: Pt hs clausterphobia Past Psychological History: Depression Smoking Status: Former smoker Past Alcohol Use History: None Reported Past Drug Use History: None Reported - Past Family History Mother Family Medical History: Cancer Additional Family Medical History / Comment(s): Father History Unknown: Yes Family Medical History: No Reported History Additional Family Medical History / Comment(s): Father was murdered Medications and Allergies Home Medications Medication Instructions Recorded Confirmed Type ALPRAZolam [Xanax] 0.5 mg PO TID PRN 05/24/24 07/10/24 History Cyclobenzaprine [Flexeril] 5 mg PO BID@0900,1200 PRN 05/24/24 07/10/24 History Acetaminophen [Tylenol Extra 500 mg PO Q6H PRN 07/10/24 07/10/24 History Strength] Amino Acids/Protein Hydrolys 30 ml PO DAILY 07/10/24 07/10/24 History [Pro-Stat Awc Liquid] Baclofen 10 mg PO DAILY 07/10/24 07/10/24 History Buprenorphine [Butrans 7.5 MCG/HR] 1 patch TRANSDERM FR 07/10/24 07/10/24 History DULoxetine HCL [Cymbalta] 60 mg PO BID 07/10/24 07/10/24 History Ensure 1 can PO BID@0900,1700 07/10/24 07/10/24 History Mag Hydrox/Aluminum Hyd/Simeth 30 ml PO Q6H PRN 07/10/24 07/10/24 History [Mylanta Maximum Strength Liq] Morphine Sulfate Ir [MSIR] 15 mg PO Q6HR PRN 07/10/24 07/10/24 History Sennosides/Docusate Sodium [Senna 1 tab PO DAILY 07/10/24 07/10/24 History Plus 8.6-50 mg Tablet] Tetrahydrozoline 0.05% Ophth 1 drop BOTH EYES QID PRN 07/10/24 07/10/24 History [Visine Eye Drops] hydrALAZINE HCL [Apresoline] 50 mg PO TID PRN 07/10/24 07/10/24 History polyethylene glycoL 3350 [Miralax] 17 gm PO MOWEFR@2100 07/10/24 07/10/24 History Allergies Allergy/AdvReac Type Severity Reaction Status Date / Time gentamicin Allergy Anaphylaxis Verified 07/10/24 09:23 Iodinated Contrast Media Allergy Rash/Hives Verified 07/10/24 09:23 Surgical - Exam Vital Signs Temp Pulse Resp BP Pulse Ox 99.2 F 75 18 113/77 95 07/09/24 20:16 07/09/24 20:16 07/09/24 20:16 07/09/24 20:16 07/09/24 20:16 - General no distress, moderate pain - Eyes normal ocular movement, no pale - ENT normal nares, normal mucosa - Respiratory normal expansion, normal respiratory effort - Abdomen Abdomen: soft, tender (Upper quadrants) Results - Labs 07/11/24 04:17 07/11/24 04:17 Abnormal Lab Results - Last 24 Hours (Table) 07/11/24 07/11/24 Range/Units 04:17 04:17 WBC 15.36 H (4.50-10.00) X 10*3/uL RBC 4.04 L (4.10-5.20) X 10*6/uL Hgb 10.2 L (12.0-15.0) g/dL Hct 32.9 L (37.2-46.3) % MCH 25.2 L (27.0-32.0) pg MCHC 31.0 L (32.0-37.0) g/dL RDW 18.5 H (11.5-14.5) % Plt Count 483 H (140-440) X 10*3/uL BUN/Creatinine Ratio 25.83 H (12.00-20.00) Ratio Calcium 8.4 L (8.7-10.3) mg/dL Microbiology - Last 24 Hours (Table) 07/10/24 01:09 Urine Culture - Preliminary Urine,Voided Diabetes panel 07/11/24 Range/Units 04:17 Sodium 140 (135-145) mmol/L Potassium 3.5 (3.5-5.5) mmol/L Chloride 107 (96-109) mmol/L Carbon Dioxide 21.7 (21.6-31.8) mmol/L BUN 15.5 (9.0-27.0) mg/dL Creatinine 0.6 (0.6-1.5) mg/dL Glucose 97 (70-110) mg/dL Calcium 8.4 L (8.7-10.3) mg/dL Calcium panel 07/11/24 Range/Units 04:17 Calcium 8.4 L (8.7-10.3) mg/dL Pituitary panel 07/11/24 Range/Units 04:17 Sodium 140 (135-145) mmol/L Potassium 3.5 (3.5-5.5) mmol/L Chloride 107 (96-109) mmol/L Carbon Dioxide 21.7 (21.6-31.8) mmol/L BUN 15.5 (9.0-27.0) mg/dL Creatinine 0.6 (0.6-1.5) mg/dL Glucose 97 (70-110) mg/dL Calcium 8.4 L (8.7-10.3) mg/dL Adrenal panel 07/11/24 Range/Units 04:17 Sodium 140 (135-145) mmol/L Potassium 3.5 (3.5-5.5) mmol/L Chloride 107 (96-109) mmol/L Carbon Dioxide 21.7 (21.6-31.8) mmol/L BUN 15.5 (9.0-27.0) mg/dL Creatinine 0.6 (0.6-1.5) mg/dL Glucose 97 (70-110) mg/dL Calcium 8.4 L (8.7-10.3) mg/dL Assessment and Plan Assessment: 64-year-old female with a history of chronic bilateral hydronephrosis, renal function stable at 0.6. Given the finding of thickened bladder wall her hydronephrosis is most likely secondary to neurogenic bladder. Her abdominal pain is not from the hydronephrosis as she has no flank pain, and the hydronephrosis has been present since March. Her urinalysis is positive for a UTI, but given her incontinence is difficult to assess this whether this is a colonization versus a true UTI, but given her leukocytosis recommend continuing antibiotics until cultures finalized. From urology standpoint no surgical intervention for hydronephrosis
[2024-07-11] MEDS: ALPRAZolam 0.5 MG TAB PO PRN (22:57)
--- NOTE | 2024-07-11 23:51 | CT ---
EXAMINATION TYPE: CT chest angio for PE DATE OF EXAM: 07/11/2024 10:46 PM COMPARISON: None. CLINICAL INDICATION: Female, 64 years old with history of dyspnea, pain with deep inspiration, pt has sob and pain with inspiration. pt is allergic and was given a 6 hour prep prior to exam. Issue with IV so Dr. Orellana placed 18 gauge IV via US at CT Table to RBV. ISO 370 60ml, TECHNIQUE: CT of the chest is performed on a spiral scan at 2 mm thick sections. Study is performed with intravenous contrast timed for evaluation for pulmonary embolism. This will limit additional po rtions of the evaluation. 10mm MIP images reconstructed by the technologist are reviewed on the comp uter in the coronal and sagittal planes. Contrast used:60 mL of Isovue 370 with IV Contrast, (none if empty) Oral contrast used: (none if empty) CT DLP: 630.8 mGycm, Automated exposure control for dose reduction was used. FINDINGS: No persistent filling defects are evident to suggest an acute pulmonary embolism. No mediastinal or hilar adenopathy enlarged by CT criteria is evident. The ascending aorta diameter at the level of the main pulmonary artery is 3.8 cm. The main pulmonary artery diameter at the bifurcation is 3.7 cm. There is a consolidation in the medial right lower lobe. Correlate for pneumonia. Small right pleural effusion is present. No significant coronary artery calcifications. Limited CT sections were through the upper abdomen. Upper abdomen appears unremarkable. Beam hardening artifact from thoracic surgical intervention is present causing beam hardening artifac t in some limitation. IMPRESSION: 1. Small right pleural effusion. 2. Medial right lower lobe consolidation. Correlate for pneumonia. 3. No acute pulmonary embolism identified [facility], Workstation: [facility], 07/11/2024 11:49 PM
[2024-07-12] MEDS: MORPHINE SULFATE 2 MG/ML SYRINGE IVP PRN (01:27)
[2024-07-12] MEDS: BUPRENORPHINE 7.5 MCG/HR TRANSDERM SCH (08:09)
[2024-07-12] MEDS: methocarbamoL 750 MG TAB PO PRN (13:50)
--- NOTE | 2024-07-12 15:31 | P.PN ---
Subjective Progress Note Date: 07/12/24 Patient 64-year-old female came in with bilateral sharp severe abdominal pain without any dysuria or increased urinary urgency or frequency. Patient had a CT of the abdomen which showed bilateral hydronephrosis with thickened urinary bladder. Patient urine is significantly abnormal with hide elevated white count in the urine. Patient was given a dose of Rocephin and was admitted. Patient does not have any fever chills does have leukocytosis. Patient is on multiple narcotic medications as an outpatient. 07/11/2024 Patient with bilateral hydronephrosis and hydroureter currently pending urology consultation. Continues on IV antibiotics and urine culture pending. Reports RUQ abdominal pain with radiation to the LUQ. CT chest has been ordered. 07/12/2024 Had a long discussion with patient's daughter over the phone. Her chest CTA reflects a right infiltrate which appears to be the same as her most recent hospital stay back in May where patient was positive for RSV. She has been afebrile and currently saturating well on room air. This is likely a residual and does not reflect any acute infectious process. Her urine culture was final showing a polymicrobial species with 3 colonies of gram-negative bacilli did speak with microbiology and we will continue to run this culture and consult infectious disease. In regards to patient's hydronephrosis this is a chronic finding and urine culture is within normal limits. Urology did evaluate the patient. 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 Patient is been in and out of the penitentiary/rehab has developed decubitus ulcer on her heel and buttock. Patient's daughter states that she has not had any follow-up essentially since the surgery. Likely patient's source of her abdominal discomfort is not radiating from the lower back and we will do a thoracic and lumbar x-ray to evaluate. Review of Systems Constitutional: Denied any fatigue denied any fever. Cardio vascular: denied any chest pain, palpitations Gastrointestinal: denied any nausea, vomiting, diarrhea Pulmonary: Denied any shortness of breath cough Neurologic denied any new focal deficits All inpatient medications were reviewed and appropriate changes in these medica tions as dictated in the interval history and assessment and plan. PHYSICAL EXAMINATION: GENERAL: The patient is alert and oriented x3, not in any acute distress. Well developed, well nourished. HEENT: Pupils are round and equally reacting to light. EOMI. No scleral icterus. No conjunctival pallor. Normocephalic, atraumatic. No pharyngeal erythema. No thyromegaly. CARDIOVASCULAR: S1 and S2 present. No murmurs, rubs, or gallops. PULMONARY: Chest is clear to auscultation, no wheezing or crackles. ABDOMEN: There is bilateral lower abdominal tenderness, nondistended, normoactive bowel sounds. No palpable organomegaly. MUSCULOSKELETAL: No joint swelling or deformity. EXTREMITIES: No cyanosis, clubbing, or pedal edema. NEUROLOGICAL: Gross neurological examination did not reveal any focal deficits. Paraplegia SKIN: No rashes. Assessment and plan - Bilateral lower abdominal pain likely intractible from mid to lower back pain - Polymicrobial UTI pending final urine culture - Leukocytosis due to assessment #1 - Hypokalemia due to IV fluids potassium will be replaced - Chronic hydronephrosis from neurogenic bladder - Left heel stage II/DTI present on admission - Sacral pressure injury DTI present on admission - Hx of back surgery in 07/2023 resulting in paraplegia - Right infiltrate with recent hospitalization for RSV this is likely a sequela - Chronic medical debility and bed bound secondary to above - Depression - Hx TIA - Hx lung cancer - Splenectomy - Former Smoker Chronic pain for which patient is on multiple opiates, some of these were resumed. DVT prophylaxis: Lovenox Continue on oral morphine, oral flexeril. Add Methocarbamol PRN. Check thoracic and lumbar xrays. Continue IV ceftriaxone. Discussed with [facility] to keep running the urine culture. ID consultation. Pending final urine culture for DC antibiotics. Consult wound care. Greater than 35 minutes have been spent on this patient for coordination of care and discussion with patients daughter over the phone. Plan for return to [facility] when medically stable. The impression and plan of care has been dictated by Sara Altamirano Nurse Practitioner as directed. Dr. Richy MD I have performed a history and physical examination and medical decision making of this patient, discussed the same with the dictator, and agree with the dictators assessment and plan as written, documented as a scribe. Based on total visit time, I have performed more than 50% of this visit. Objective - Vital Signs Vital signs: Vital Signs Temp 97.3 F L 07/12/24 07:48 Pulse 72 05/09/25 07:48 Resp 17 07/12/24 07:48 BP 150/81 07/12/24 07:48 Pulse Ox 93 L 07/12/24 07:48 FiO2 Intake & Output 07/11/24 07/12/24 07/12/24 18:59 06:59 18:59 Intake Total 550 Output Total 500 1800 Balance -500 -1800 550 Weight 81.647 kg Intake: Oral 550 Output: Urine 500 1800 Other: Voiding Method Diaper Diaper Diaper Incontinent External Catheter External Catheter External Catheter # Voids 1 # Bowel Movements 1 1 - Labs CBC & Chem 7: 07/11/24 04:17 07/11/24 04:17 Labs: Microbiology - Last 24 Hours (Table) 07/10/24 01:09 Urine Culture - Final Urine,Voided Assessment and Plan Time with Patient: Greater than 30
[2024-07-12] MEDS: AZITHROMYCIN 500 MG TAB PO SCH (18:06)
[2024-07-13] MEDS: diphenhydrAMINE 50 MG/ML 1 ML VIAL IVP PRN (01:38)
[2024-07-13 02:04] LABS: Appearance,Urine Turbid (Clear); Bacteria,Urine Many /hpf; Bilirubin,Urine Negative (Negative); Blood,Urine Small (Negative); Color,Urine Yellow; Glucose,Urine (UA) Negative (Negative); Ketones,Urine Negative (Negative); Leukocyte Esterase,Urine Large (Negative); Mucus,Urine Rare /hpf; Nitrite,Urine Negative (Negative); PH, Urine 7.5 (5.0-8.0); Protein,Urine Negative (Negative); RBC,Urine 28 /hpf (0-5); Specific Gravity,Urine 1.012 (1.001-1.035); Squamous Epithelial Cell,Urine 1 /hpf (0-4); Urobilinogen,Urine <2.0 mg/dL (<2.0); WBC,Urine 70 /hpf (0-5)
[2024-07-13 10:37] LABS: HCT 36.1 % (37.2-46.3); MCH 24.5 pg (27.0-32.0); MCHC 30.5 g/dL (32.0-37.0); MCV 80.4 FL (80.0-97.0); Mean Platelet Volume 10.2 FL (9.5-12.2); NRBC Per 100 WBC 0 X 10*3/uL (0.00-0.01); Platelet Count 519 X 10*3/uL (140-440); RBC 4.49 X 10*6/uL (4.10-5.20); RDW 18.6 % (11.5-14.5); WBC 15.05 X 10*3/uL (4.50-10.00)
[2024-07-13 11:03] LABS: Blood Urea Nitrogen 11.6 mg/dL (9.0-27.0); Calcium 8.5 mg/dL (8.7-10.3); Carbon Dioxide 24.3 mmol/L (21.6-31.8); Chloride 107 mmol/L (96-109); Glucose 77 mg/dL (70-110); Potassium 3.1 mmol/L (3.5-5.5); Sodium 142 mmol/L (135-145)
[2024-07-13 13:01] LABS: Basophils # (M) 0.15 X 10*3/uL (0.00-0.10); Eosinophils # (M) 0.15 X 10*3/uL (0.04-0.35); Lymphocytes # (M) 5.27 X 10*3/uL (0.90-5.00); Neutrophils # (M) 7.98 X 10*3/uL (1.80-7.70); Neutrophils % (M) 53 %
--- NOTE | 2024-07-13 14:00 | P.PN ---
Subjective Progress Note Date: 07/13/24 Patient 64-year-old female came in with bilateral sharp severe abdominal pain without any dysuria or increased urinary urgency or frequency. Patient had a CT of the abdomen which showed bilateral hydronephrosis with thickened urinary bladder. Patient urine is significantly abnormal with hide elevated white count in the urine. Patient was given a dose of Rocephin and was admitted. Patient does not have any fever chills does have leukocytosis. Patient is on multiple narcotic medications as an outpatient. 07/11/2024 Patient with bilateral hydronephrosis and hydroureter currently pending urology consultation. Continues on IV antibiotics and urine culture pending. Reports RUQ abdominal pain with radiation to the LUQ. CT chest has been ordered. 07/12/2024 Had a long discussion with patient's daughter over the phone. Her chest CTA reflects a right infiltrate which appears to be the same as her most recent hospital stay back in May where patient was positive for RSV. She has been afebrile and currently saturating well on room air. This is likely a residual and does not reflect any acute infectious process. Her urine culture was final showing a polymicrobial species with 3 colonies of gram-negative bacilli did speak with microbiology and we will continue to run this culture and consult infectious disease. In regards to patient's hydronephrosis this is a chronic finding and urine culture is within normal limits. Urology did evaluate the patient. 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 Patient is been in and out of the care home/rehab has developed decubitus ulcer on her heel and buttock. Patient's daughter states that she has not had any follow-up essentially since the surgery. Likely patient's source of her abdominal discomfort is not radiating from the lower back and we will do a thoracic and lumbar x-ray to evaluate. 07/13/2024 Patient is evaluated in follow-up on the medical floor. No acute changes overnight. She complains only of back pain when she is moving around of the bed. For this reason she keeps refusing the lumbar and thoracic x-rays that have been ordered. A repeat UA and culture has been sent and ID following she continues on IV ceftriaxone currently pending the urine cultures. Potassium 3.1 today. White blood cell count 15.05. Review of Systems Constitutional: Denied any fatigue denied any fever. Cardio vascular: denied any chest pain, palpitations Gastrointestinal: denied any nausea, vomiting, diarrhea Pulmonary: Denied any shortness of breath cough Neurologic denied any new focal deficits All inpatient medications were reviewed and appropriate changes in these medications as dictated in the interval history and assessment and plan. PHYSICAL EXAMINATION: GENERAL: The patient is alert and oriented x3, not in any acute distress. Well developed, well nourished. HEENT: Pupils are round and equally reacting to light. EOMI. No scleral icterus. No conjunctival pallor. Normocephalic, atraumatic. No pharyngeal erythema. No thyromegaly. CARDIOVASCULAR: S1 and S2 present. No murmurs, rubs, or gallops. PULMONARY: Chest is clear to auscultation, no wheezing or crackles. ABDOMEN: There is bilateral lower abdominal tenderness, nondistended, normoactive bowel sounds. No palpable organomegaly. MUSCULOSKELETAL: No joint swelling or deformity. EXTREMITIES: No cyanosis, clubbing, or pedal edema. NEUROLOGICAL: Gross neurological examination did not reveal any focal deficits. Paraplegia SKIN: No rashes. Assessment and plan - Bilateral lower abdominal pain likely intractible from mid to lower back pain - Polymicrobial UTI pending final urine culture - Leukocytosis due to assessment #1 - Hypokalemia due to IV fluids potassium will be replaced - Chronic hydronephrosis from neurogenic bladder - Left heel stage II/DTI present on admission - Sacral pressure injury DTI present on admission - Hx of back surgery in 07/2023 resulting in paraplegia - Right infiltrate with recent hospitalization for RSV this is likely a sequela - Chronic medical debility and bed bound secondary to above - Depression - Hx TIA - Hx lung cancer - Splenectomy - Former Smoker DVT prophylaxis Lovenox Supplement potassium. Continue on oral morphine, oral flexeril. Add Methocarbamol PRN. Check thoracic and lumbar xrays. Continue IV ceftriaxone. Discussed with [facility] to keep running the urine culture. ID consultation. Pending final urine culture for DC antibiotics. Consult wound care. Patient keeps refusing the thoracic and lumbar x-rays to discuss with the patient that we need to get these. She is agreeable. Transport will attempt again. Again return to [facility] when medically stable probably on Monday. The impression and plan of care has been dictated by Sara Altamirano, Nurse Practitioner as directed. Dr. Richy MD I have performed a history and physical examination and medical decision making of this patient, discussed the same with the dictator, and agree with the dictators assessment and plan as written, documented as a scribe. Based on total visit time, I have performed more than 50% of this visit. Objective - Vital Signs Vital signs: Vital Signs Temp 97.9 F 07/13/24 07:44 Pulse 92 07/13/24 07:44 Resp 17 07/13/24 07:44 BP 151/92 07/13/24 07:44 Pulse Ox 93 L 07/13/24 07:44 FiO2 Intake & Output 07/12/24 07/13/24 07/13/24 18:59 06:59 18:59 Intake Total 550 480 Output Total 400 Balance 550 -400 480 Intake: Oral 550 480 Output: Urine 400 Other: Voiding Method Diaper Diaper External Catheter External Catheter # Bowel Movements 1 - Labs CBC & Chem 7: 07/13/24 04:34 07/13/24 04:34 Labs: Abnormal Lab Results - Last 24 Hours (Table) 07/13/24 07/13/24 07/13/24 Range/Units 00:54 04:34 04:34 WBC 15.05 H (4.50-10.00) X 10*3/uL Hgb 11.0 L (12.0-15.0) g/dL Hct 36.1 L (37.2-46.3) % MCH 24.5 L (27.0-32.0) pg MCHC 30.5 L (32.0-37.0) g/dL RDW 18.6 H (11.5-14.5) % Plt Count 519 H (140-440) X 10*3/uL Potassium 3.1 L (3.5-5.5) mmol/L Creatinine 0.5 L (0.6-1.5) mg/dL BUN/Creatinine Ratio 23.20 H (12.00-20.00) Ratio Calcium 8.5 L (8.7-10.3) mg/dL Urine Appearance Turbid H (Clear) Urine Blood Small H (Negative) Ur Leukocyte Esterase Large H (Negative) Urine RBC 28 H (0-5) /hpf Urine WBC 70 H (0-5) /hpf Urine Bacteria Many H (None) /hpf Urine Mucus Rare H (None) /hpf Microbiology - Last 24 Hours (Table) 07/10/24 01:09 Urine Culture - Final Urine,Voided Assessment and Plan Time with Patient: Less than 30
[2024-07-13] MEDS: POTASSIUM CHLORIDE ER 20 MEQ TAB.ER PO SCH (14:28)
--- NOTE | 2024-07-13 21:49 | P.CONS ---
History of Present Illness - Reason for Consult Consult date: 07/13/24 - History of Present Illness Patient was very abusive in language and refused to be examined consult could not be completed ID will sign off Past Medical History Past Medical History: Cancer, Hearing Disorder / Deafness Additional Past Medical History / Comment(s): back pain; "several tia's-Last TIA 1 1/2 YEARS AGO, pluerisy, migraines, past falls, "was told at [facility] she had non-alcoholic cirrhosis". lung cancer History of Any Multi-Drug Resistant Organisms: None Reported Past Surgical History: Back Surgery, Breast Surgery, Cholecystectomy, Hysterectomy Additional Past Surgical History / Comment(s): back sx, neck sx. spleenectomy- d/t injury; benign R Breast lumpectomy, sinus sx Past Anesthesia/Blood Transfusion Reactions: No Reported Reaction Additional Past Anesthesia/Blood Transfusion Reaction / Comm: Pt hs clarohitp hobia Past Psychological History: Depression Smoking Status: Former smoker Past Alcohol Use History: None Reported Past Drug Use History: None Reported - Past Family History Mother Family Medical History: Cancer Additional Family Medical History / Comment(s): Father History Unknown: Yes Family Medical History: No Reported History Additional Family Medical History / Comment(s): Father was murdered Medications and Allergies Home Medications Medication Instructions Recorded Confirmed Type ALPRAZolam [Xanax] 0.5 mg PO TID PRN 05/24/24 07/10/24 History Cyclobenzaprine [Flexeril] 5 mg PO BID@0900,1200 PRN 05/24/24 07/10/24 History Acetaminophen [Tylenol Extra 500 mg PO Q6H PRN 07/10/24 07/10/24 History Strength] Amino Acids/Protein Hydrolys 30 ml PO DAILY 07/10/24 07/10/24 History [Pro-Stat Awc Liquid] Baclofen 10 mg PO DAILY 07/10/24 07/10/24 History Buprenorphine [Butrans 7.5 MCG/HR] 1 patch TRANSDERM FR 07/10/24 07/10/24 History DULoxetine HCL [Cymbalta] 60 mg PO BID 07/10/24 07/10/24 History Ensure 1 can PO BID@0900,1700 07/10/24 07/10/24 History Mag Hydrox/Aluminum Hyd/Simeth 30 ml PO Q6H PRN 07/10/24 07/10/24 History [Mylanta Maximum Strength Liq] Morphine Sulfate Ir [MSIR] 15 mg PO Q6HR PRN 07/10/24 07/10/24 History Sennosides/Docusate Sodium [Senna 1 tab PO DAILY 07/10/24 07/10/24 History Plus 8.6-50 mg Tablet] Tetrahydrozoline 0.05% Ophth 1 drop BOTH EYES QID PRN 07/10/24 07/10/24 History [Visine Eye Drops] hydrALAZINE HCL [Apresoline] 50 mg PO TID PRN 07/10/24 07/10/24 History polyethylene glycoL 3350 [Miralax] 17 gm PO MOWEFR@2100 07/10/24 07/10/24 History Allergies Allergy/AdvReac Type Severity Reaction Status Date / Time gentamicin Allergy Anaphylaxis Verified 07/10/24 09:23 Iodinated Contrast Media Allergy Rash/Hives Verified 07/10/24 09:23 Physical Exam Vitals: Vital Signs Temp Pulse Resp BP Pulse Ox 07/13/24 07:44 97.9 F 92 17 151/92 93 L 07/13/24 07:40 79 17 07/13/24 02:00 97.7 F 79 124/72 95 07/12/24 20:00 97.4 F L 98 112/74 96 07/12/24 14:39 95.3 F L 86 17 157/83 95 Intake and Output 07/12/24 07/13/24 07/13/24 22:59 06:59 14:59 Intake Total 480 Output Total 200 200 Balance -200 -200 480 Intake: Oral 480 Output: Urine 200 200 Other: Voiding Method Diaper External Catheter # Bowel Movements 1 Results CBC & Chem 7: 07/13/24 04:34 07/13/24 04:34 Labs: Abnormal Lab Results - Last 24 Hours (Table) 07/13/24 07/13/24 07/13/24 Range/Units 00:54 04:34 04:34 WBC 15.05 H (4.50-10.00) X 10*3/uL Hgb 11.0 L (12.0-15.0) g/dL Hct 36.1 L (37.2-46.3) % MCH 24.5 L (27.0-32.0) pg MCHC 30.5 L (32.0-37.0) g/dL RDW 18.6 H (11.5-14.5) % Plt Count 519 H (140-440) X 10*3/uL Neutrophils # (Manual) 7.98 H (1.80-7.70) X 10*3/uL Lymphocytes # (Manual) 5.27 H (0.90-5.00) X 10*3/uL Monocytes # (Manual) 1.50 H (0.20-1.00) X 10*3/uL Basophils # (Manual) 0.15 H (0.00-0.10) X 10*3/uL Potassium 3.1 L (3.5-5.5) mmol/L Creatinine 0.5 L (0.6-1.5) mg/dL BUN/Creatinine Ratio 23.20 H (12.00-20.00) Ratio Calcium 8.5 L (8.7-10.3) mg/dL Urine Appearance Turbid H (Clear) Urine Blood Small H (Negative) Ur Leukocyte Esterase Large H (Negative) Urine RBC 28 H (0-5) /hpf Urine WBC 70 H (0-5) /hpf Urine Bacteria Many H (None) /hpf Urine Mucus Rare H (None) /hpf Microbiology - Last 24 Hours (Table) 07/10/24 01:09 Urine Culture - Final Urine,Voided
[2024-07-14 10:25] LABS: BUN/Creat Ratio 19.33 Ratio (12.00-20.00); Blood Urea Nitrogen 11.6 mg/dL (9.0-27.0); Glucose 85 mg/dL (70-110)
[2024-07-14 10:26] LABS: Calcium 8.8 mg/dL (8.7-10.3); Chloride 105 mmol/L (96-109); Potassium 2.9 mmol/L (3.5-5.5); Sodium 143 mmol/L (135-145)
[2024-07-14] MEDS ORDERED: Potassium Replacement Protocol 1 EACH MISC MISCELLANE PRN (11:06)
[2024-07-14] MEDS: POTASSIUM CHLORIDE 10 MEQ in WATER FOR INJECTION 1 100ML.BAG IVPB SCH (11:32)
--- NOTE | 2024-07-14 23:25 | P.PN ---
Subjective Progress Note Date: 07/14/24 Patient 64-year-old female came in with bilateral sharp severe abdominal pain without any dysuria or increased urinary urgency or frequency. Patient had a CT of the abdomen which showed bilateral hydronephrosis with thickened urinary bladder. Patient urine is significantly abnormal with hide elevated white count in the urine. Patient was given a dose of Rocephin and was admitted. Patient does not have any fever chills does have leukocytosis. Patient is on multiple narcotic medications as an outpatient. 07/11/2024 Patient with bilateral hydronephrosis and hydroureter currently pending urology consultation. Continues on IV antibiotics and urine culture pending. Reports RUQ abdominal pain with radiation to the LUQ. CT chest has been ordered. 07/12/2024 Had a long discussion with patient's daughter over the phone. Her chest CTA reflects a right infiltrate which appears to be the same as her most recent hospital stay back in May where patient was positive for RSV. She has been afebrile and currently saturating well on room air. This is likely a residual and does not reflect any acute infectious process. Her urine culture was final showing a polymicrobial species with 3 colonies of gram-negative bacilli did speak with microbiology and we will continue to run this culture and consult infectious disease. In regards to patient's hydronephrosis this is a chronic finding and urine culture is within normal limits. Urology did evaluate the patient. 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 Patient is been in and out of the [facility]/rehab has developed decubitus ulcer on her heel and buttock. Patient's daughter states that she has not had any follow-up essentially since the surgery. Likely patient's source of her abdominal discomfort is not radiating from the lower back and we will do a thoracic and lumbar x-ray to evaluate. 07/13/2024 Patient is evaluated in follow-up on the medical floor. No acute changes overnight. She complains only of back pain when she is moving around of the bed. For this reason she keeps refusing the lumbar and thoracic x-rays that have been ordered. A repeat UA and culture has been sent and ID following she continues on IV ceftriaxone currently pending the urine cultures. Potassium 3.1 today. White blood cell count 15.05. 07/14/2024 Patient resting in bed comfortably today. Refusing lumbar and thoracic xrays. Has been resistive to care. Refused the ID consultation for urine culture. Urine culture showing pseudomonas aeruginosa, klebsiella ESBL, E.Coli. Her repeat culture again reveals a polymicrobial specimin. Review of Systems Constitutional: Denied any fatigue denied any fever. Cardio vascular: denied any chest pain, palpitations Gastrointestinal: denied any nausea, vomiting, diarrhea Pulmonary: Denied any shortness of breath cough Neurologic denied any new focal deficits All inpatient medications were reviewed and appropriate changes in these medications as dictated in the interval history and assessment and plan. PHYSICAL EXAMINATION: GENERAL: The patient is alert and oriented x3, not in any acute distress. Well developed, well nourished. HEENT: Pupils are round and equally reacting to light. EOMI. No scleral icterus. No conjunctival pallor. Normocephalic, atraumatic. No pharyngeal erythema. No thyromegaly. CARDIOVASCULAR: S1 and S2 present. No murmurs, rubs, or gallops. PULMONARY: Chest is clear to auscultation, no wheezing or crackles. ABDOMEN: There is bilateral lower abdominal tenderness, nondistended, normoactive bowel sounds. No palpable organomegaly. MUSCULOSKELETAL: No joint swelling or deformity. EXTREMITIES: No cyanosis, clubbing, or pedal edema. NEUROLOGICAL: Gross neurological examination did not reveal any focal deficits. Paraplegia SKIN: No rashes. Assessment and plan - Bilateral lower abdominal pain likely intractible from mid to lower back pain - Polymicrobial UTI pending final urine culture - Leukocytosis due to assessment #1 - Hypokalemia due to IV fluids potassium will be replaced - Chronic hydronephrosis from neurogenic bladder - Left heel stage II/DTI present on admission - Sacral pressure injury DTI present on admission - Hx of back surgery in 07/2023 resulting in paraplegia - Right infiltrate with recent hospitalization for RSV this is likely a sequela - Chronic medical debility and bed bound secondary to above - Depression - Hx TIA - Hx lung cancer - Splenectomy - Former Smoker DVT prophylaxis Lovenox Supplement potassium. Continue on oral morphine, oral flexeril. Add Methocarbamol PRN. Check thoracic and lumbar xrays. Patient refused ID c onsulation. Start merropenem. Consult wound care. Patient keeps refusing the thoracic and lumbar x-rays to discuss with the patient that we need to get these. She is resistive to care and refusing medications. Follow up with family on monday. The impression and plan of care has been dictated by Sara Altamirano, Nurse Practitioner as directed. Dr. Richy MD I have performed a history and physical examination and medical decision making of this patient, discussed the same with the dictator, and agree with the dictators assessment and plan as written, documented as a scribe. Based on total visit time, I have performed more than 50% of this visit. Objective - Vital Signs Vital signs: Vital Signs Temp 97.9 F 07/13/24 07:44 Pulse 92 07/13/24 21:28 Resp 17 07/13/24 21:28 BP 151/92 07/13/24 07:44 Pulse Ox 93 L 07/13/24 07:44 FiO2 Intake & Output 07/13/24 07/14/24 07/14/24 18:59 06:59 18:59 Intake Total 570 180 Output Total 100 Balance 570 80 Intake: Oral 570 180 Output: Post Void Residual 100 Other: Voiding Method Diaper Diaper External Catheter External Catheter # Voids 1 # Bowel Movements 1 1 - Labs CBC & Chem 7: 07/13/24 04:34 07/14/24 06:19 Labs: Abnormal Lab Results - Last 24 Hours (Table) 07/13/24 07/13/24 Range/Units 04:34 04:34 WBC 15.05 H (4.50-10.00) X 10*3/uL Hgb 11.0 L (12.0-15.0) g/dL Hct 36.1 L (37.2-46.3) % MCH 24.5 L (27.0-32.0) pg MCHC 30.5 L (32.0-37.0) g/dL RDW 18.6 H (11.5-14.5) % Plt Count 519 H (140-440) X 10*3/uL Neutrophils # (Manual) 7.98 H (1.80-7.70) X 10*3/uL Lymphocytes # (Manual) 5.27 H (0.90-5.00) X 10*3/uL Monocytes # (Manual) 1.50 H (0.20-1.00) X 10*3/uL Basophils # (Manual) 0.15 H (0.00-0.10) X 10*3/uL Potassium 3.1 L (3.5-5.5) mmol/L Creatinine 0.5 L (0.6-1.5) mg/dL BUN/Creatinine Ratio 23.20 H (12.00-20.00) Ratio Calcium 8.5 L (8.7-10.3) mg/dL Microbiology - Last 24 Hours (Table) 07/12/24 14:51 Blood Culture - Preliminary Blood 07/10/24 01:09 Urine Culture - Final Urine,Voided Pseudomonas aeruginosa Gram Neg Bacilli Assessment and Plan Time with Patient: Less than 30
[2024-07-15] MEDS: MEROPENEM 1 GM in SODIUM CHLORIDE 0.9% 100 ML IVPB SCH (00:12)
[2024-07-15 04:16] LABS: African American GFR (CKD) >90 (>60 ml/min/1.73 sqM); Anion Gap 13 mmol/L; Blood Urea Nitrogen 11 mg/dL (7-17); Calcium 8.8 mg/dL (8.4-10.2); Carbon Dioxide 20 mmol/L (22-30); Chloride 105 mmol/L (98-107); Glucose 168 mg/dL (74-99); Non-African American GFR(CKD) >90 (>60 ml/min/1.73 sqM); Potassium 2.9 mmol/L (3.5-5.1); Sodium 138 mmol/L (137-145)
[2024-07-15] MEDS: POTASSIUM CHLORIDE ER 20 MEQ TAB.ER PO SCH (04:30)
[2024-07-15 04:47] LABS: Basophils # (A) 0.08 10*3/uL (0.00-0.10); Basophils % (A) 0.6 %; Eosinophils # (A) 0.65 10*3/uL (0.04-0.35); Eosinophils % (A) 4.8 %; HGB 11.4 g/dL (12.0-15.0); Lymphocytes # (A) 3.33 10*3/uL (0.90-5.00); Lymphocytes % (A) 24.7 %; MCH 25.2 pg (27.0-32.0); MCHC 30.8 g/dL (32.0-37.0); MCV 81.7 fL (80.0-97.0); Mean Platelet Volume 9.1 fL (9.5-12.2); Monocytes # (A) 1.71 10*3/uL (0.20-1.00); Monocytes % (A) 12.7 %; Neutrophils # (A) 7.62 10*3/uL (1.80-7.70); Neutrophils % (A) 56.4 %; Platelet Count 448 10*3/uL (140-440); RBC 4.53 10*6/uL (4.10-5.20)
--- NOTE | 2024-07-15 12:04 | XR ---
EXAMINATION TYPE: XR lumbar spine 2 or 3V, XR thoracic spine 2V DATE OF EXAM: 07/15/2024 11:40 AM COMPARISON: 03/10/2022 CLINICAL INDICATION: Female, 64 years old with history of back pain from prior surgery; PHH, pain TECHNIQUE: XR lumbar spine 2 or 3V, XR thoracic spine 2V - Frontal, lateral and coned in L5-S1 latera l views of the spine. FINDINGS: Fixation hardware at L4-L5 and S1 as well as in the throughout the thoracic spine. The fixa tion hardware in the cervical spine appears intact. Grade 1 anterolisthesis of L3 on L4. Hardware tavo ears intact. No evidence of any acute osseous pathology. Atherosclerosis of the arterial vasculature. No evidence of loss of vertebral body height is seen. Thoracic alignment is satisfactory. Scattered disc space narrowing. Multilevel marginal osteophyte formation throughout the visualized spine. There is facet joint arthropathy throughout the spine. Scattered at least mild neural foraminal stenosis. IMPRESSION: 1. Post surgical changes with hardware intact. 2. Grade I anterolisthesis of L3 on L4. [facility], , 07/15/2024 12:02 PM
--- NOTE | 2024-07-15 17:31 | P.PN ---
Subjective Progress Note Date: 07/15/24 Patient 64-year-old female came in with bilateral sharp severe abdominal pain without any dysuria or increased urinary urgency or frequency. Patient had a CT of the abdomen which showed bilateral hydronephrosis with thickened urinary bladder. Patient urine is significantly abnormal with hide elevated white count in the urine. Patient was given a dose of Rocephin and was admitted. Patient does not have any fever chills does have leukocytosis. Patient is on multiple narcotic medications as an outpatient. 07/11/2024 Patient with bilateral hydronephrosis and hydroureter currently pending urology consultation. Continues on IV antibiotics and urine culture pending. Reports RUQ abdominal pain with radiation to the LUQ. CT chest has been ordered. 07/12/2024 Had a long discussion with patient's daughter over the phone. Her chest CTA reflects a right infiltrate which appears to be the same as her most recent hospital stay back in May where patient was positive for RSV. She has been afebrile and currently saturating well on room air. This is likely a residual and does not reflect any acute infectious process. Her urine culture was final showing a polymicrobial species with 3 colonies of gram-negative bacilli did speak with microbiology and we will continue to run this culture and consult infectious disease. In regards to patient's hydronephrosis this is a chronic finding and urine culture is within normal limits. Urology did evaluate the patient. 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 Patient is been in and out of the senior care/rehab has developed decubitus ulcer on her heel and buttock. Patient's daughter states that she has not had any follow-up essentially since the surgery. Likely patient's source of her abdominal discomfort is not radiating from the lower back and we will do a thoracic and lumbar x-ray to evaluate. 07/13/2024 Patient is evaluated in follow-up on the medical floor. No acute changes overnight. She complains only of back pain when she is moving around of the bed. For this reason she keeps refusing the lumbar and thoracic x-rays that have been ordered. A repeat UA and culture has been sent and ID following she continues on IV ceftriaxone currently pending the urine cultures. Potassium 3.1 today. White blood cell count 15.05. 07/14/2024 Patient resting in bed comfortably today. Refusing lumbar and thoracic xrays. Has been resistive to care. Refused the ID consultation for urine culture. Urine culture showing pseudomonas aeruginosa, klebsiella ESBL, E.Coli. Her repeat culture again reveals a polymicrobial specimin. 07/15/2024 Patient evaluated today in follow up resting in bed. Reports back pain controlled at this time. Currently alert x 3 and no longer confused; suspect patient had hospital acquire delirium and had not slept for 4 to 5 days. She finally was able to rest and today her mentation has improved. Has been started on IV meropenem. Lumbar and thoracic xrays completed reveals fixation hardware L4-L5, and S1. Fixation hardware in the thoracic and cervical spine as well. Thoracic alignment is satisfactory. Facet joint arthropathy throughout the spine. Mild neural foraminal stenosis. Potassium 4.0. WBC 13.50. Review of Systems Constitutional: Denied any fatigue denied any fever. Cardio vascular: denied any chest pain, palpitations Gastrointestinal: denied any nausea, vomiting, diarrhea Pulmonary: Denied any shortness of breath cough Neurologic denied any new focal deficits All inpatient medications were reviewed and appropriate changes in these medications as dictated in the interval history and assessment and plan. PHYSICAL EXAMINATION: GENERAL: The patient is alert and oriented x3, not in any acute distress. Well developed, well nourished. HEENT: Pupils are round and equally reacting to light. EOMI. No scleral icterus. No conjunctival pallor. Normocephalic, atraumatic. No pharyngeal erythema. No thyromegaly. CARDIOVASCULAR: S1 and S2 present. No murmurs, rubs, or gallops. PULMONARY: Chest is clear to auscultation, no wheezing or crackles. ABDOMEN: There is bilateral lower abdominal tenderness, nondistended, normoactive bowel sounds. No palpable organomegaly. MUSCULOSKELETAL: No joint swelling or deformity. EXTREMITIES: No cyanosis, clubbing, or pedal edema. NEUROLOGICAL: Gross neurological examination did not reveal any focal deficits. Paraplegia SKIN: No rashes. Assessment and plan - Bilateral lower abdominal pain likely intractible from mid to lower back pain - Polymicrobial UTI with klebsialla pneumo ESBL, pseudomonas aeruginosa, E.Coli - Leukocytosis due to assessment #1 - Hypokalemia due to IV fluids potassium will be replaced - Chronic hydronephrosis from neurogenic bladder - Left heel stage II/DTI present on admission - Sacral pressure injury DTI present on admission - Hx of back surgery in 07/2023 resulting in paraplegia - Right infiltrate with recent hospitalization for RSV this is likely a sequela - Chronic medical debility and bed bound secondary to above - Depression - Hx TIA - Hx lung cancer - Splenectomy - Former Smoker DVT prophylaxis Lovenox Supplement potassium. Continue on oral morphine, oral flexeril. Add Methocarbamol PRN. Patient refused ID consulation; ID to follow up. Start merropenem. Consult wound care. Mentation has improved today. Will return to [facility] on DC pending ID recommendations and evaluation. Thoracolumbar xrays have been reviewed and no acute issues identified with the surgical hardware. PT/OT following. The impression and plan of care has been dictated by Sara Altamirano, Nurse Practitioner as directed. Dr. Richy MD I have performed a history and physical examination and medical decision making of this patient, discussed the same with the dictator, and agree with the dictators assessment and plan as written, documented as a scribe. Based on total visit time, I have performed more than 50% of this visit. Objective - Vital Signs Vital signs: Vital Signs Temp 98.5 F 07/15/24 06:56 Pulse 81 07/15/24 06:56 Resp 18 07/15/24 06:56 BP 90/60 07/15/24 06:56 Pulse Ox 92 L 07/15/24 06:56 FiO2 Intake & Output 07/14/24 07/15/24 07/15/24 18:59 06:59 18:59 Intake Total 100 Output Total 350 Balance 100 -350 Intake: Intake, IV Titration 100 Amount Potassium Chloride 10 meq 100 In Water For Injection 1 100ml.bag @ 100 mls/hr IVPB Q1HR [facility] Rx#: [id number] Output: Urine 350 Other: Voiding Method Diaper Diaper External Catheter External Catheter # Bowel Movements 1 - Labs CBC & Chem 7: 07/15/24 04:25 07/15/24 09:51 Labs: Abnormal Lab Results - Last 24 Hours (Table) 07/14/24 07/15/24 07/15/24 Range/Units 06:19 03:05 04:25 WBC 13.50 H (4.50-10.00) 10*3/uL Hgb 11.4 L (12.0-15.0) g/dL Hct 37.0 L (37.2-46.3) % MCH 25.2 L (27.0-32.0) pg MCHC 30.8 L (32.0-37.0) g/dL RDW 19.0 H (11.5-14.5) % Plt Count 448 H (140-440) 10*3/uL MPV 9.1 L (9.5-12.2) fL Immature Gran # 0.11 H (0.00-0.04) 10*3/uL Monocytes # 1.71 H (0.20-1.00) 10*3/uL Eosinophils # 0.65 H (0.04-0.35) 10*3/uL Potassium 2.9 L 2.9 L (3.5-5.5) mmol/L Carbon Dioxide 20 L (22-30) mmol/L Creatinine 0.49 L (0.52-1.04) mg/dL Glucose 168 H (74-99) mg/dL Microbiology - Last 24 Hours (Table) 07/12/24 14:51 Blood Culture - Preliminary Blood 07/10/24 01:09 Urine Culture - Final Urine,Voided Pseudomonas aeruginosa Klebsiella pneumo ESBL MDRO Escherichia coli 07/13/24 00:54 Urine Culture - Final Urine,Voided Assessment and Plan Time with Patient: Less than 30
[2024-07-16 04:11] LABS: African American GFR (CKD) >90 (>60 ml/min/1.73 sqM); Anion Gap 8 mmol/L; Blood Urea Nitrogen 11 mg/dL (7-17); Calcium 8.3 mg/dL (8.4-10.2); Carbon Dioxide 19 mmol/L (22-30); Chloride 108 mmol/L (98-107); Non-African American GFR(CKD) >90 (>60 ml/min/1.73 sqM); Sodium 135 mmol/L (137-145)
[2024-07-16 04:13] LABS: Glucose 101 mg/dL (74-99); Potassium 4.9 mmol/L (3.5-5.1)
[2024-07-16 08:27] LABS: Basophils # (A) 0.12 X 10*3/uL (0.00-0.10); Basophils % (A) 0.8 %; Eosinophils # (A) 1.09 X 10*3/uL (0.04-0.35); Eosinophils % (A) 7.6 %; HCT 37.5 % (37.2-46.3); HGB 11.2 g/dL (12.0-15.0); Lymphocytes # (A) 4.19 X 10*3/uL (0.90-5.00); Lymphocytes % (A) 29.2 %; MCH 25.1 pg (27.0-32.0); MCHC 29.9 g/dL (32.0-37.0); MCV 84.1 FL (80.0-97.0); Mean Platelet Volume 10.5 FL (9.5-12.2); Monocytes # (A) 1.63 X 10*3/uL (0.20-1.00); Monocytes % (A) 11.4 %; NRBC Per 100 WBC 0 X 10*3/uL (0.00-0.01); Neutrophils # (A) 7.15 X 10*3/uL (1.80-7.70); Neutrophils % (A) 49.7 %; Platelet Count 534 X 10*3/uL (140-440); RBC 4.46 X 10*6/uL (4.10-5.20); RDW 19.9 % (11.5-14.5); WBC 14.36 X 10*3/uL (4.50-10.00)
--- NOTE | 2024-07-16 13:38 | P.CONS ---
History of Present Illness - Reason for Consult Consult date: 07/15/24 Multidrug-resistant UTI Requesting physician: Sara Altamirano - Chief Complaint Abdominal pain x few days - History of Present Illness Patient is a 64-year-old female with a past medical history significant for TIA depression did have history of left heel infected ulcer with osteomyelitis patient has been brought into the hospital 6 days ago for evaluation of abdominal pain that the pain has been getting worse pain was mostly in the lower abdominal area patient has some nausea but no vomiting and no diarrhea has been reported patient on presentation to the hospital was running a low-grade fever of 99.2 and a few have been called subsequently. However I tachycardic but not hypotensive or hypoxemia patient did have elevated vital a 15.05 creatinine has been normal urine has been positive and urine culture did grew multiple pathogens including Pseudomonas ESBL Klebsiella and E. coli, patient also have a CT abdominal pelvis with evidence of bilateral hydronephrosis moderate bilateral hydroureter bladder wall thickening has been seen by urology recommended no intervention with multidrug-resistant pathogen patient being treated with meropenem infectious disease was consulted for further management of antibiotic therapy, initial consult could not be completed the patient refused to be evaluated however has been asked today and again by the admitting team to reevaluate the patient for consideration for outpatient antibiotic therapy Review of Systems Positive point and negatives has been mentioned in the HPI, complete review of systems was performed and all other systems are negative Past Medical History Past Medical History: Cancer, Hearing Disorder / Deafness Additional Past Medical History / Comment(s): back pain; "several tia's-Last TIA 1 1/2 YEARS AGO, pluerisy, migraines, past falls, "was told at [facility] she had non-alcoholic cirrhosis". lung cancer History of Any Multi-Drug Resistant Organisms: ESBL Year Discovered:: 07/10/24 MDRO Source:: URINE Past Surgical History: Back Surgery, Breast Surgery, Cholecystectomy, Hysterectomy Additional Past Surgical History / Comment(s): back sx, neck sx. spleenectomy-d/ t injury; benign R Breast lumpectomy, sinus sx Past Anesthesia/Blood Transfusion Reactions: No Reported Reaction Additional Past Anesthesia/Blood Transfusion Reaction / Comm: Pt hs clausterphobia Past Psychological History: Depression Smoking Status: Former smoker Past Alcohol Use History: None Reported Past Drug Use History: None Reported - Past Family History Mother Family Medical History: Cancer Additional Family Medical History / Comment(s): Father History Unknown: Yes Family Medical History: No Reported History Additional Family Medical History / Comment(s): Father was murdered Medications and Allergies Home Medications Medication Instructions Recorded Confirmed Type ALPRAZolam [Xanax] 0.5 mg PO TID PRN 05/24/24 07/10/24 History Cyclobenzaprine [Flexeril] 5 mg PO BID@0900,1200 PRN 05/24/24 07/10/24 History Acetaminophen [Tylenol Extra 500 mg PO Q6H PRN 07/10/24 07/10/24 History Strength] Amino Acids/Protein Hydrolys 30 ml PO DAILY 07/10/24 07/10/24 History [Pro-Stat Awc Liquid] Baclofen 10 mg PO DAILY 07/10/24 07/10/24 History Buprenorphine [Butrans 7.5 MCG/HR] 1 patch TRANSDERM FR 07/10/24 07/10/24 History DULoxetine HCL [Cymbalta] 60 mg PO BID 07/10/24 07/10/24 History Ensure 1 can PO BID@0900,1700 07/10/24 07/10/24 History Mag Hydrox/Aluminum Hyd/Simeth 30 ml PO Q6H PRN 07/10/24 07/10/24 History [Mylanta Maximum Strength Liq] Morphine Sulfate Ir [MSIR] 15 mg PO Q6HR PRN 07/10/24 07/10/24 History Sennosides/Docusate Sodium [Senna 1 tab PO DAILY 07/10/24 07/10/24 History Plus 8.6-50 mg Tablet] Tetrahydrozoline 0.05% Ophth 1 drop BOTH EYES QID PRN 07/10/24 07/10/24 History [Visine Eye Drops] hydrALAZINE HCL [Apresoline] 50 mg PO TID PRN 07/10/24 07/10/24 History polyethylene glycoL 3350 [Miralax] 17 gm PO MOWEFR@2100 07/10/24 07/10/24 History Allergies Allergy/AdvReac Type Severity Reaction Status Date / Time gentamicin Allergy Anaphylaxis Verified 07/10/24 09:23 Iodinated Contrast Media Allergy Rash/Hives Verified 07/10/24 09:23 Physical Exam Vitals: Vital Signs Temp Pulse Resp BP BP Pulse Ox 07/15/24 14:32 97.5 F L 102 H 18 107/69 96 07/15/24 06:56 98.5 F 81 18 90/60 92 L 07/15/24 01:20 97.8 F 86 17 125/81 93 L Intake and Output 07/15/24 07/15/24 07/15/24 06:59 14:59 22:59 Output Total 350 300 Balance -350 -300 Output: Urine 350 300 Stool 0 Other: Voiding Method Diaper External Catheter # Voids 3 # Bowel Movements 1 Weight 81.647 kg GENERAL DESCRIPTION: Elderly male lying in bed, no distress. No tachypnea or accessory muscle of respiration use. HEENT: Shows Pallor , no scleral icterus. Oral mucous membrane is dry. NECK: Trachea central, no thyromegaly. LUNGS: Unlabored breathing. Clear to auscultation anteriorly. No wheeze or crackle. HEART: S1, S2, regular rate and rhythm. No loud murmur ABDOMEN: Soft, no tenderness , guarding or rigidity, no organomegaly EXTREMITIES: Left heel stage III ulcer with no soft tissue redness SKIN: No rash, no masses palpable. NEUROLOGICAL: The patient is awake, alert, mood and affect normal. Results CBC & Chem 7: 07/16/24 03:33 07/16/24 03:33 Labs: Abnormal Lab Results - Last 24 Hours (Table) 07/15/24 07/15/24 Range/Units 03:05 04:25 WBC 13.50 H (4.50-10.00) 10*3/uL Hgb 11.4 L (12.0-15.0) g/dL Hct 37.0 L (37.2-46.3) % MCH 25.2 L (27.0-32.0) pg MCHC 30.8 L (32.0-37.0) g/dL RDW 19.0 H (11.5-14.5) % Plt Count 448 H (140-440) 10*3/uL MPV 9.1 L (9.5-12.2) fL Immature Gran # 0.11 H (0.00-0.04) 10*3/uL Monocytes # 1.71 H (0.20-1.00) 10*3/uL Eosinophils # 0.65 H (0.04-0.35) 10*3/uL Potassium 2.9 L (3.5-5.1) mmol/L Carbon Dioxide 20 L (22-30) mmol/L Creatinine 0.49 L (0.52-1.04) mg/dL Glucose 168 H (74-99) mg/dL Microbiology - Last 24 Hours (Table) 07/12/24 14:51 Blood Culture - Preliminary Blood Assessment and Plan (1) Infection due to ESBL-producing Klebsiella pneumoniae Current Visit: Yes Status: Acute Code(s): A49.8 - OTHER BACTERIAL INFECTIONS OF UNSPECIFIED SITE; Z16.12 - EXTENDED SPECTRUM BETA LACTAMASE (ESBL) RESISTANCE SNOMED Code(s): 984685916 (2) Hydronephrosis Current Visit: Yes Status: Acute Code(s): N13.30 - UNSPECIFIED HYDRONEPHROSIS SNOMED Code(s): 70975144 (3) UTI (urinary tract infection) Current Visit: Yes Status: Acute Code(s): N39.0 - URINARY TRACT INFECTION, SITE NOT SPECIFIED SNOMED Code(s): 18825848 (4) Leukocytosis Current Visit: No Status: Acute Code(s): D72.829 - ELEVATED WHITE BLOOD CELL COUNT, UNSPECIFIED SNOMED Code(s): 578224994 Plan: 1patient presented to hospital with lower abdominal pain she also have significant mental status changes did have elevated white count meeting criteria for symptomatic/complicated UTI with urine culture showing multidrug-resistant pathogen including Pseudomonas he has been Klebsiella and E. coli 2will recommend placement of a midline and at least 2-week course of antibiotic therapy she is currently on meropenem that will be continued and 1 g every 8 hours 3left heel pressure ulcer without cellulitis recommend to keep the area of the pressure and treat with a dry Aquacel silver dressing We will follow on clinical condition and cultures to further adjust medication if needed Thank you for this consultation we will follow the patient along with you Dictation was produced using [employer] dictation software. please excuse any grammatical, word or spelling errors. Time with Patient: Greater than 30
[2024-07-16] MEDS ORDERED: IOPAMIDOL CONTRAST (ORAL USE) VIAL PO PRN (14:29)
--- NOTE | 2024-07-16 16:16 | P.PN ---
Subjective Progress Note Date: 07/16/24 Principal diagnosis: Reason for follow-up is complicated UTI Patient is a 64-year-old female with a past medical history significant for TIA depression did have history of left heel infected ulcer with osteomyelitis present to the hospital abdominal pain he did have a abdominal CT concerning for bilateral hydronephrosis hydroureter and question of cystitis with urine culture multiple pathogen prompted this consultation. On today's evaluation that is 07/16/2024, the patient continues to be afebrile, the patient is on room air and breathing comfortably, the Pt denies having any chest pain or cough, the patient denies having any abdominal pain no vomiting or any diarrhea has been reported by the nursing staff. Patient white count is 14.36, creatinine 0.49 Objective - Vital Signs Vital signs: Vital Signs Temp 98.1 F 07/16/24 07:00 Pulse 71 07/16/24 07:00 Resp 16 07/16/24 07:00 BP 116/70 07/16/24 07:00 Pulse Ox 95 07/16/24 07:00 FiO2 Intake & Output 07/15/24 07/16/24 07/16/24 18:59 06:59 18:59 Output Total 300 500 Balance -300 -500 Weight 81.647 kg Output: Urine 300 500 Female - External 500 Stool 0 Other: Voiding Method Diaper Diaper Diaper External Catheter Incontinent Incontinent # Voids 3 3 # Bowel Movements 3 - Exam GENERAL DESCRIPTION: An elderly female lying in bed in no distress RESPIRATORY SYSTEM: Unlabored breathing , decreased breath sounds at bases HEART: S1 S2 regular rate and rhythm , ABDOMEN: Soft , no tenderness EXTREMITIES: Left treated wound is currently dressed minimal erythema to the upper extremity but no rash on the abdominal torso - Labs CBC & Chem 7: 07/16/24 03:33 07/16/24 03:33 Labs: Abnormal Lab Results - Last 24 Hours (Table) 07/16/24 07/16/24 Range/Units 03:33 03:33 WBC 14.36 H (4.50-10.00) X 10*3/uL Hgb 11.2 L (12.0-15.0) g/dL MCH 25.1 L (27.0-32.0) pg MCHC 29.9 L (32.0-37.0) g/dL RDW 19.9 H (11.5-14.5) % Plt Count 534 H (140-440) X 10*3/uL Immature Gran # 0.18 H (0.00-0.04) X 10*3/uL Monocytes # 1.63 H (0.20-1.00) X 10*3/uL Eosinophils # 1.09 H (0.04-0.35) X 10*3/uL Basophils # 0.12 H (0.00-0.10) X 10*3/uL Sodium 135 L (137-145) mmol/L Chloride 108 H (98-107) mmol/L Carbon Dioxide 19 L (22-30) mmol/L Creatinine 0.49 L (0.52-1.04) mg/dL Glucose 101 H (74-99) mg/dL Calcium 8.3 L (8.4-10.2) mg/dL Microbiology - Last 24 Hours (Table) 07/12/24 14:51 Blood Culture - Preliminary Blood Assessment and Plan (1) Infection due to ESBL-producing Klebsiella pneumoniae Current Visit: Yes Status: Acute Code(s): A49.8 - OTHER BACTERIAL INFECTIONS OF UNSPECIFIED SITE; Z16.12 - EXTENDED SPECTRUM BETA LACTAMASE (ESBL) RESISTANCE SNOMED Code(s): 200655136 (2) Hydronephrosis Current Visit: Yes Status: Acute Code(s): N13.30 - UNSPECIFIED HYDRONEPHROSIS SNOMED Code(s): 46200104 (3) UTI (urinary tract infection) Current Visit: Yes Status: Acute Code(s): N39.0 - URINARY TRACT INFECTION, SITE NOT SPECIFIED SNOMED Code(s): 37816189 (4) Leukocytosis Current Visit: No Status: Acute Code(s): D72.829 - ELEVATED WHITE BLOOD CELL COUNT, UNSPECIFIED SNOMED Code(s): 532532297 Plan: 1patient presented to hospital with lower abdominal pain she also have significant mental status changes did have elevated white count meeting criteria for symptomatic/complicated UTI with urine culture showing multidrug-resistant pathogen including Pseudomonas he has been Klebsiella and E. coli 2left heel pressure ulcer without cellulitis recommend to keep the area of the pressure and treat with a dry Aquacel silver dressing 3patient is to continue with meropenem, will recommend placement of a midline and at least 2-week course of antibiotic therapy Dictation was produced using [employer] dictation software. please excuse any grammatical, word or spelling errors. Time with Patient: Less than 30
[2024-07-16] MEDS: BARIUM SULFATE 2% - 450 ML ORAL.SUSP BOTTLE PO ONE ×2 (17:23→19:57)
[2024-07-16] MEDS ORDERED: CALAMINE/ZINC OXIDE LOTION 177 ML BTL TOPICAL PRN (18:29)
--- NOTE | 2024-07-16 22:12 | CT ---
EXAMINATION TYPE: CT abdomen pelvis wo con CT DLP: 1170.4 mGycm, Automated exposure control for dose reduction was used. DATE OF EXAM: 07/16/2024 9:59 PM COMPARISON: CT abdomen pelvis 07/09/2024 CLINICAL INDICATION:Female, 64 years old with history of colovesical fistula; colovesical fistula TECHNIQUE: Standard CT of the abdomen and pelvis following the administration of oral contrast. Cor onal and sagittal reformats were performed. FINDINGS: Limited examination due to lack of intravenous contrast. LOWER CHEST: Small right pleural effusion with basilar consolidation of the medial aspect of the righ t lower lobe. Moderate coronary arterial calcifications. No pericardial effusion. ABDOMEN LIVER: Unremarkable noncontrast appearance. GALLBLADDER AND BILE DUCTS: The gallbladder is surgically absent. No biliary duct dilatation. PANCREAS: Unremarkable noncontrast appearance. SPLEEN: Unremarkable noncontrast appearance. ADRENAL GLANDS: Unremarkable noncontrast appearance.. KIDNEYS AND URETERS: Mild bilateral hydroureteronephrosis without obstructing calculus redemonstrated . Approximately 3 nonobstructing right renal calculi with largest measurement of 5 mm. Approximately 4 nonobstructing left renal calculi the largest measuring up to 4 mm. PELVIS BLADDER: Mildly distended without wall thickening or surrounding inflammatory changes. No evidence fo r colovesicular fistula. No intraluminal debris or gas identified. REPRODUCTIVE: The uterus is surgically absent. ABDOMEN & PELVIS STOMACH AND BOWEL: Stomach and duodenum are unremarkable. Mild amount of stool is present throughout the colon. Enteric contrast reaches the mid transverse colon. No focal bowel wall thickening or surro unding inflammatory changes. No evidence of bowel obstruction. PERITONEUM: No evidence of pneumoperitoneum or free fluid. VASCULATURE: Mild to moderate atherosclerotic calcifications are present throughout the abdominal aor ta and its branches. No evidence of aortic aneurysm. MUSCULOSKELETAL: No acute osseous abnormalities. Extensive surgical fusion hardware of the visualized thoracolumbar spine. This creates streak artifact which limits evaluation. Laminectomy changes at L4 -S1. Grade 1 anterolisthesis of L3 on L4 without pars defects. Remote fracture of the T8 vertebral bunny dy. LYMPH NODES: No gross evidence for lymphadenopathy. SOFT TISSUE/ABDOMINAL WALL: Unremarkable IMPRESSION: 1. Bilateral hydroureteronephrosis without obstructing calculus redemonstrated. 2. Nonobstructive bilateral renal calculi redemonstrated. 3. No distinct colovesical fistula identified however enteric contrast only reached the mid transvers e colon. 4. Small right pleural effusion with right medial lower lobe consolidation redemonstrated. [facility], , 07/16/2024 10:09 PM
[2024-07-17 06:00] LABS: Basophils # (A) 0.08 10*3/uL (0.00-0.10); Basophils % (A) 0.5 %; Eosinophils # (A) 1.09 10*3/uL (0.04-0.35); HCT 33.7 % (37.2-46.3); HGB 10.9 g/dL (12.0-15.0); Lymphocytes # (A) 3.88 10*3/uL (0.90-5.00); Lymphocytes % (A) 24.9 %; MCH 25.8 pg (27.0-32.0); MCHC 32.3 g/dL (32.0-37.0); MCV 79.9 fL (80.0-97.0); Mean Platelet Volume 10.1 fL (9.5-12.2); Monocytes # (A) 2.06 10*3/uL (0.20-1.00); Monocytes % (A) 13.2 %; Neutrophils % (A) 53.2 %; RBC 4.22 10*6/uL (4.10-5.20); RDW 18.9 % (11.5-14.5); WBC 15.59 10*3/uL (4.50-10.00)
[2024-07-17 06:16] LABS: African American GFR (CKD) >90 (>60 ml/min/1.73 sqM); Anion Gap 7 mmol/L; Blood Urea Nitrogen 7 mg/dL (7-17); Carbon Dioxide 22 mmol/L (22-30); Chloride 107 mmol/L (98-107); Glucose 91 mg/dL (74-99); Non-African American GFR(CKD) >90 (>60 ml/min/1.73 sqM); Potassium 3.6 mmol/L (3.5-5.1); Sodium 136 mmol/L (137-145)
[2024-07-17 09:36] LABS: Poikilocytosis (M) Present
[2024-07-17 09:37] LABS: Platelet Count 512 10*3/uL (140-440)
[2024-07-17] MEDS: diphenhydrAMINE 25 MG CAP PO PRN (12:49)
--- NOTE | 2024-07-17 13:48 | PN ---
PROGRESS NOTE DATE OF SERVICE: 07/16/2024 SUBJECTIVE: This is a 64-year-old woman who was admitted with possibly ESBL UTI, ESBL Klebsiella pneumoniae UTI, also had hydronephrosis. The patient has some rash also. No chest pain palpitations. F rehab is being awaited. PHYSICAL EXAMINATION: VITAL SIGNS: Pulse 76, blood pressure 106/82, and respirations 17. CHEST: Few scattered rhonchi. ABDOMEN: Soft. NERVOUS SYSTEM: No focal deficits. LABORATORY DATA: WBC 14.56. Rest of the labs are noted. ASSESSMENT: 1. Extended spectrum beta-lactamase Klebsiella urinary tract infection. 2. Skin rash, possible allergic reaction eosinophilia for investigation. 3. Chronic hydronephrosis with retention 4. Sacral pressure injury. 5. Multiple complex medical issues. RECOMMENDATIONS AND DISCUSSION: I recommend to continue current medications and continue the antibiotics. Closely follow with Dr. Eli. Guarded prognosis. Further recommendations to follow. MMODL / IJN: [id number] / MTDD
[2024-07-17] MEDS: PEG 3350 (236 GM/BTL) + LYTES 4,000 ML BOTTLE PO ONE ×2 (16:26→17:23)
[2024-07-17] MEDS: ONDANSETRON 4 MG/2 ML VIAL IVP PRN (22:08)
[2024-07-17] MEDS ORDERED: ZINC OXIDE PASTE (Z-GUARD) 1 APPLIC TOPICAL PRN (23:42)
[2024-07-18 09:25] LABS: Basophils # (A) 0.07 X 10*3/uL (0.00-0.10); Basophils % (A) 0.6 %; Eosinophils # (A) 0.92 X 10*3/uL (0.04-0.35); Eosinophils % (A) 7.5 %; HCT 34.4 % (37.2-46.3); HGB 10.7 g/dL (12.0-15.0); Lymphocytes # (A) 3.42 X 10*3/uL (0.90-5.00); Lymphocytes % (A) 27.9 %; MCH 25.7 pg (27.0-32.0); MCHC 31.1 g/dL (32.0-37.0); MCV 82.5 FL (80.0-97.0); Macrocytosis (M) 2+ (None Seen); Mean Platelet Volume 10.4 FL (9.5-12.2); Monocytes # (A) 1.63 X 10*3/uL (0.20-1.00); Monocytes % (A) 13.3 %; NRBC Per 100 WBC 0 X 10*3/uL (0.00-0.01); Neutrophils # (A) 6.07 X 10*3/uL (1.80-7.70); Neutrophils % (A) 49.6 %; Platelet Count 484 X 10*3/uL (140-440); RBC 4.17 X 10*6/uL (4.10-5.20); RDW 19.5 % (11.5-14.5); WBC 12.25 X 10*3/uL (4.50-10.00)
[2024-07-18] MEDS: PEG 3350 (236 GM/BTL) + LYTES 4,000 ML BOTTLE PO ONE (09:42)
--- NOTE | 2024-07-18 10:45 | PN ---
PROGRESS NOTE DATE OF SERVICE: 07/17/2024 SUBJECTIVE: This is a 64-year-old woman, who was admitted with ESBL Klebsiella infection also, had skin rash also. No chest pain. No palpitation. A CAT scan of the abdomen and pelvis with p.o. contrast showed bilateral hydronephrosis. No distant colovesical fistula with limitations. OBJECTIVE: VITAL SIGNS: Pulse is 85, blood pressure 119/70, respirations 17. CHEST: Few scattered rhonchi and crackles. ABDOMEN: Soft, nontender. EXTREMITIES: Legs, no edema, no swelling. SKIN: No rash. Rest of the labs are noted. ASSESSMENT: 1. Extended-spectrum beta-lactamase Klebsiella urinary tract infection. 2. Bilateral hydronephrosis. 3. Skin rash, possible allergic. 4. Sacral pressure injury. 5. Multiple complex medical issues. 6. Chronic hydronephrosis. RECOMMENDATIONS: Continue current management and treatment. Otherwise, we will continue to monitor. The cultures are noted. Further recommendations to follow. See orders for further details. MMODL / IJN: [id number] /
--- NOTE | 2024-07-18 11:10 | P.GSCN ---
History of Present Illness Consult date: 07/18/24 History of present illness: CHIEF COMPLAINT: Abdominal pain HISTORY OF PRESENT ILLNESS: This is a 64-year-old female who presented the hospital with complaints of pain across the upper abdomen. Patient is bedbound. She has a history of back surgery in July 2023 resulting in paraplegia. Patient is being treated for UTI. She apparently has been chronic UTIs. She does have a chronic hydronephrosis and seen by urology and no intervention planned. Surgical service has been consulted for EGD and colonoscopy to evaluate for colon fistula as well as patient has been having eosinophilia noted on her blood work. Oncology is on consult as well. Patient denies any blood in her stools denies any black stools. No reported stool in the vaginal cavity. Patient is not passing any stool in her urine. Hemoglobin stable at 10.9. She reports never having had a EGD and she is unclear when she her last colonoscopy was. PAST MEDICAL HISTORY: TIA, migraines, lung cancer, paraplegic PAST SURGICAL HISTORY: Back surgery, breast surgery, cholecystectomy, hysterectomy, splenectomy MEDICATIONS: See below ALLERGIES: See below SOCIAL HISTORY: No illicit drug use. REVIEW OF SYSTEMS: CONSTITUTIONAL: Denies fever or chills. HEENT: Denies blurred vision, vision changes, or eye pain. Denies hemoptysis CARDIOVASCULAR: Denies chest pain or pressure. RESPIRATORY: No shortness of breath. GASTROINTESTINAL: See HPI for pertinent findings HEMATOLOGIC: Denies bleeding disorders. GENITOURINARY: Denies any blood in urine or increased urinary frequency. SKIN: Denies pruitis. Denies rash. PHYSICAL EXAM: VITAL SIGNS: Reviewed GENERAL: Well-developed in no acute distress. HEENT: No sclera icterus. Extraocular movements grossly intact. Moist buccal mucosa. Head is atraumatic, normocephalic. No nasal drainage. ABDOMEN: Soft. Obese. Nondistended. Minimal tenderness palpation across upper abdomen NEUROLOGIC: Alert and oriented. Cranial nerves II through XII grossly intact. LABORATORY DATA: WBC is 12.25 Hgb 10.7 platelets 484 Sodium is 136 potassium 3.6 creatinine 0.49 IMAGING: CT scan abdomen pelvis reports bilateral hydroureteronephrosis without obstructing calculus. Nonobstructive bilateral renal calculi redemonstrated. No distinct colovesical fistula identified however enteric contrast only reach the mid transverse colon. Small right pleural effusion with right medial lower lobe consolidation ASSESSMENT: 1. Abdominal pain across upper abdomen 2. Eosinophilia PLAN: - Patient scheduled for EGD and colonoscopy tomorrow with Dr. Clifford. Patient cannot have EGD and colonoscopy completed today because she did not complete the bowel prep. prep last night. - GoLytely bowel prep today - Clear liquid diet today - N.p.o. after midnight Physician Heating And Air Conditioning Mechanic note has been reviewed by physician. Signing provider agrees with the documented findings, assessment, and plan of care. Past Medical History Past Medical History: Cancer, Hearing Disorder / Deafness Additional Past Medical History / Comment(s): back pain; "several tia's-Last TIA 1 1/2 YEARS AGO, pluerisy, migraines, past falls, "was told at [facility] she had non-alcoholic cirrhosis". lung cancer History of Any Multi-Drug Resistant Organisms: ESBL Year Discovered:: 07/10/24 MDRO Source:: URINE Past Surgical History: Back Surgery, Breast Surgery, Cholecystectomy, Hysterectomy Additional Past Surgical History / Comment(s): back sx, neck sx. spleenectomy- d/t injury; benign R Breast lumpectomy, sinus sx Past Anesthesia/Blood Transfusion Reactions: No Reported Reaction Additional Past Anesthesia/Blood Transfusion Reaction / Comm: Pt hs clausterphobia Past Psychological History: Depression Smoking Status: Former smoker Past Alcohol Use History: None Reported Past Drug Use History: None Reported - Past Family History Mother Family Medical History: Cancer Additional Family Medical History / Comment(s): Father History Unknown: Yes Family Medical History: No Reported History Additional Family Medical History / Comment(s): Father was murdered Medications and Allergies Home Medications Medication Instructions Recorded Confirmed Type ALPRAZolam [Xanax] 0.5 mg PO TID PRN 05/24/24 07/10/24 History Cyclobenzaprine [Flexeril] 5 mg PO BID@0900,1200 PRN 05/24/24 07/10/24 History Acetaminophen [Tylenol Extra 500 mg PO Q6H PRN 07/10/24 07/10/24 History Strength] Amino Acids/Protein Hydrolys 30 ml PO DAILY 07/10/24 07/10/24 History [Pro-Stat Awc Liquid] Baclofen 10 mg PO DAILY 07/10/24 07/10/24 History Buprenorphine [Butrans 7.5 MCG/HR] 1 patch TRANSDERM FR 07/10/24 07/10/24 History DULoxetine HCL [Cymbalta] 60 mg PO BID 07/10/24 07/10/24 History Ensure 1 can PO BID@0900,1700 07/10/24 07/10/24 History Mag Hydrox/Aluminum Hyd/Simeth 30 ml PO Q6H PRN 07/10/24 07/10/24 History [Mylanta Maximum Strength Liq] Morphine Sulfate Ir [MSIR] 15 mg PO Q6HR PRN 07/10/24 07/10/24 History Sennosides/Docusate Sodium [Senna 1 tab PO DAILY 07/10/24 07/10/24 History Plus 8.6-50 mg Tablet] Tetrahydrozoline 0.05% Ophth 1 drop BOTH EYES QID PRN 07/10/24 07/10/24 History [Visine Eye Drops] hydrALAZINE HCL [Apresoline] 50 mg PO TID PRN 07/10/24 07/10/24 History polyethylene glycoL 3350 [Miralax] 17 gm PO MOWEFR@2100 07/10/24 07/10/24 History Allergies Allergy/AdvReac Type Severity Reaction Status Date / Time gentamicin Allergy Anaphylaxis Verified 07/10/24 09:23 Iodinated Contrast Media Allergy Rash/Hives Verified 07/10/24 09:23 Surgical - Exam Vital Signs Temp Pulse Resp BP Pulse Ox 99.2 F 75 18 113/77 95 07/09/24 20:16 07/09/24 20:16 07/09/24 20:16 07/09/24 20:16 07/09/24 20:16 Results - Labs 07/18/24 04:22 07/17/24 05:33 Abnormal Lab Results - Last 24 Hours (Table) 07/18/24 Range/Units 04:22 WBC 12.25 H (4.50-10.00) X 10*3/uL Hgb 10.7 L (12.0-15.0) g/dL Hct 34.4 L (37.2-46.3) % MCH 25.7 L (27.0-32.0) pg MCHC 31.1 L (32.0-37.0) g/dL RDW 19.5 H (11.5-14.5) % Plt Count 484 H (140-440) X 10*3/uL Immature Gran # 0.14 H (0.00-0.04) X 10*3/uL Monocytes # 1.63 H (0.20-1.00) X 10*3/uL Eosinophils # 0.92 H (0.04-0.35) X 10*3/uL Macrocytosis (manual) 2+ A (None Seen) Microbiology - Last 24 Hours (Table) 07/12/24 14:51 Blood Culture - Final Blood
[2024-07-18 15:15] LABS: Reticulocyte % 1.61 % (0.10-1.80)
--- NOTE | 2024-07-18 15:24 | P.PN ---
Subjective Progress Note Date: 07/17/24 Principal diagnosis: Reason for follow-up is complicated UTI Patient is a 64-year-old female with a past medical history significant for TIA depression did have history of left heel infected ulcer with osteomyelitis present to the hospital abdominal pain he did have a abdominal CT concerning for bilateral hydronephrosis hydroureter and question of cystitis with urine culture multiple pathogen prompted this consultation. On today's evaluation that is 07/17/2024, Patient is afebrile patient is currently on room air and denies having any shortness of breath, the patient denies any chest pain or cough, the patient denies any nausea vomiting did not have any abdominal pain and no diarrhea Patient white count slightly up to 15.59, creatinine 0.49 Objective - Vital Signs Vital signs: Vital Signs Temp 98.8 F 07/17/24 07:00 Pulse 85 07/17/24 07:00 Resp 17 07/17/24 07:00 BP 119/78 07/17/24 07:00 Pulse Ox 93 L 07/17/24 07:00 FiO2 Intake & Output 07/16/24 07/17/24 07/17/24 18:59 06:59 18:59 Output Total 500 Balance -500 Output: Urine 500 Straight 500 Other: Voiding Method Diaper Diaper Incontinent Incontinent Incontinent # Voids 1 1 # Bowel Movements 1 2 - Exam GENERAL DESCRIPTION: An elderly female lying in bed in no distress RESPIRATORY SYSTEM: Unlabored breathing , decreased breath sounds at bases HEART: S1 S2 regular rate and rhythm , ABDOMEN: Soft , no tenderness EXTREMITIES: Left treated wound is currently dressed minimal erythema to the upper extremity but no rash on the abdominal torso - Labs CBC & Chem 7: 07/18/24 04:22 07/17/24 05:33 Labs: Abnormal Lab Results - Last 24 Hours (Table) 07/17/24 07/17/24 Range/Units 05:33 05:33 WBC 15.59 H (4.50-10.00) 10*3/uL Hgb 10.9 L (12.0-15.0) g/dL Hct 33.7 L (37.2-46.3) % MCV 79.9 L (80.0-97.0) fL MCH 25.8 L (27.0-32.0) pg RDW 18.9 H (11.5-14.5) % Plt Count 512 H (140-440) 10*3/uL Immature Gran # 0.18 H (0.00-0.04) 10*3/uL Neutrophils # 8.30 H (1.80-7.70) 10*3/uL Monocytes # 2.06 H (0.20-1.00) 10*3/uL Eosinophils # 1.09 H (0.04-0.35) 10*3/uL Sodium 136 L (137-145) mmol/L Creatinine 0.49 L (0.52-1.04) mg/dL Assessment and Plan (1) Infection due to ESBL-producing Klebsiella pneumoniae Current Visit: Yes Status: Acute Code(s): A49.8 - OTHER BACTERIAL INFECTIONS OF UNSPECIFIED SITE; Z16.12 - EXTENDED SPECTRUM BETA LACTAMASE (ESBL) RESISTANCE SNOMED Code(s): 220637595 (2) Hydronephrosis Current Visit: Yes Status: Acute Code(s): N13.30 - UNSPECIFIED HYDRONEPHROSIS SNOMED Code(s): 59277908 (3) UTI (urinary tract infection) Current Visit: Yes Status: Acute Code(s): N39.0 - URINARY TRACT INFECTION, SITE NOT SPECIFIED SNOMED Code(s): 52752617 (4) Leukocytosis Current Visit: No Status: Acute Code(s): D72.829 - ELEVATED WHITE BLOOD CELL COUNT, UNSPECIFIED SNOMED Code(s): 259810976 Plan: 1patient presented to hospital with lower abdominal pain she also have significant mental status changes did have elevated white count meeting criteria for symptomatic/complicated UTI with urine culture showing multidrug-resistant pathogen including Pseudomonas he has been Klebsiella and E. coli 2left heel stage III pressure ulcer without cellulitis, patient does have a stage III sacral pressure ulcer, recommend to keep the area of the pressure and treat with a dry Aquacel silver dressing 3patient did have slight worsening of the white count to be monitored closely for now I will continue meropenem care discussed with the admitting physician Dictation was produced using [employer] software. please excuse any grammatical, word or spelling errors. Time with Patient: Less than 30
--- NOTE | 2024-07-18 15:26 | P.PN ---
Subjective Progress Note Date: 07/18/24 Principal diagnosis: Reason for follow-up is complicated UTI Patient is a 64-year-old female with a past medical history significant for TIA depression did have history of left heel infected ulcer with osteomyelitis present to the hospital abdominal pain he did have a abdominal CT concerning for bilateral hydronephrosis hydroureter and question of cystitis with urine culture multiple pathogen prompted this consultation. On today's evaluation that is 07/18/2024, patient has been afebrile, patient is breathing comfortably and is currently on room air, patient denies having any chest pain and cough, patient denies nausea vomiting is having some diarrhea after getting the bowel prep no other symptoms. Patient white count is down to 12.25 creatinine 0.49 Objective - Vital Signs Vital signs: Vital Signs Temp 98 F 07/18/24 07:20 Pulse 82 07/18/24 07:20 Resp 17 07/18/24 07:20 BP 91/61 07/18/24 07:20 Pulse Ox 90 L 07/18/24 07:20 FiO2 Intake & Output 07/17/24 07/18/24 07/18/24 18:59 06:59 18:59 Other: Voiding Method Incontinent Diaper Incontinent # Voids 2 6 2 # Bowel Movements 2 6 1 - Exam GENERAL DESCRIPTION: An elderly female lying in bed in no distress RESPIRATORY SYSTEM: Unlabored breathing , decreased breath sounds at bases HEART: S1 S2 regular rate and rhythm , ABDOMEN: Soft , no tenderness, patient did have a stage III sacral pressure ulcer wound base looks clean no slough or surrounding redness EXTREMITIES: Left heel stage III ulcer but no slough tissue or surrounding redness - Labs CBC & Chem 7: 07/18/24 04:22 07/17/24 05:33 Labs: Abnormal Lab Results - Last 24 Hours (Table) 07/18/24 Range/Units 04:22 WBC 12.25 H (4.50-10.00) X 10*3/uL Hgb 10.7 L (12.0-15.0) g/dL Hct 34.4 L (37.2-46.3) % MCH 25.7 L (27.0-32.0) pg MCHC 31.1 L (32.0-37.0) g/dL RDW 19.5 H (11.5-14.5) % Plt Count 484 H (140-440) X 10*3/uL Immature Gran # 0.14 H (0.00-0.04) X 10*3/uL Monocytes # 1.63 H (0.20-1.00) X 10*3/uL Eosinophils # 0.92 H (0.04-0.35) X 10*3/uL Macrocytosis (manual) 2+ A (None Seen) Microbiology - Last 24 Hours (Table) 07/12/24 14:51 Blood Culture - Final Blood Assessment and Plan (1) Infection due to ESBL-producing Klebsiella pneumoniae Current Visit: Yes Status: Acute Code(s): A49.8 - OTHER BACTERIAL INFECTIONS OF UNSPECIFIED SITE; Z16.12 - EXTENDED SPECTRUM BETA LACTAMASE (ESBL) RESISTANCE SNOMED Code(s): 397083893 (2) Hydronephrosis Current Visit: Yes Status: Acute Code(s): N13.30 - UNSPECIFIED HYDRONEPHROSIS SNOMED Code(s): 30066572 (3) UTI (urinary tract infection) Current Visit: Yes Status: Acute Code(s): N39.0 - URINARY TRACT INFECTION, SITE NOT SPECIFIED SNOMED Code(s): 12223347 (4) Leukocytosis Current Visit: No Status: Acute Code(s): D72.829 - ELEVATED WHITE BLOOD CELL COUNT, UNSPECIFIED SNOMED Code(s): 705632461 Plan: 1patient presented to hospital with lower abdominal pain she also have significant mental status changes did have elevated white count meeting criteria for symptomatic/complicated UTI with urine culture showing multidrug-resistant pathogen including Pseudomonas he has been Klebsiella and E. coli 2left heel stage III pressure ulcer without cellulitis, patient does have a stage III sacral pressure ulcer, recommend to keep the area of the pressure and treat with a dry Aquacel silver dressing 3patient is afebrile patient white count is trending down we will continue meropenem currently undergoing GI workup for anemia Dictation was produced using [facility] dictation software. please excuse any grammatical, word or spelling errors. Time with Patient: Less than 30
[2024-07-18 15:55] LABS: % Iron Saturation 13.31 (12.00-45.00)
[2024-07-18] MEDS: NYSTATIN 100,000 UNIT/GM POWD 15 GM TOPICAL SCH (17:56)
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
--- NOTE | 2024-07-19 03:06 | PN ---
PROGRESS NOTE DATE OF SERVICE: 07/18/2024 This is a 64-year-old woman, who was admitted with UTI, also had abdominal pain. The patient also had a skin rash and significant eosinophilia for apparently very long time. Multiple consultants are following the patient closely including Hematology, Oncology. EGD, colonoscopy could not be done today. PAST MEDICAL HISTORY: Reviewed. REVIEW OF SYSTEMS: 14-point review of systems negative. CURRENT MEDICATIONS: Reviewed. PHYSICAL EXAMINATION: VITAL SIGNS: Pulse is 77, blood pressure 115/70, respirations 16. HEENT: Conjunctivae normal. CARDIOVASCULAR: S1, S2. ABDOMEN: Soft. Mild diffuse tenderness in the upper abdomen. EXTREMITIES: Legs, no edema. SKIN: Diffuse skin lesions present. LABORATORY DATA: Noted. ASSESSMENT: 1. Extended spectrum beta lactamase Klebsiella urinary tract infection. 2. Bilateral hydronephrosis. 3. Severe eosinophilia of long-standing, acute on chronic. 4. Monocytosis. 5. Skin rash, possible allergic. 6. Sacral pressure injury. 7. Multiple complex medical issues. 8. Chronic hydronephrosis of bladder thickening. RECOMMENDATIONS: Continue current management and treatment. The patient has multiple complex medical issues. Exact etiology unknown at this time. I will recommend to proceed with the EGD, colonoscopy, skin biopsy, possible cystoscopy and further evaluation by Hematology, Oncology. The prognosis maybe guarded. Further recommendations to follow. See orders for further details. MMODL / IJN: [id number] /
[2024-07-19 07:01] LABS: African American GFR (CKD) >90 (>60 ml/min/1.73 sqM); Anion Gap 9 mmol/L; Blood Urea Nitrogen 3 mg/dL (7-17); Calcium 8.8 mg/dL (8.4-10.2); Carbon Dioxide 26 mmol/L (22-30); Chloride 104 mmol/L (98-107); Glucose 79 mg/dL (74-99); Non-African American GFR(CKD) >90 (>60 ml/min/1.73 sqM); Sodium 139 mmol/L (137-145)
[2024-07-19 07:02] LABS: Potassium 3.3 mmol/L (3.5-5.1)
[2024-07-19 07:11] LABS: Basophils % (A) 0.8 %; Eosinophils # (A) 0.92 10*3/uL (0.04-0.35); Eosinophils % (A) 7.4 %; HCT 32.9 % (37.2-46.3); HGB 10.6 g/dL (12.0-15.0); Lymphocytes # (A) 4.29 10*3/uL (0.90-5.00); Lymphocytes % (A) 34.7 %; MCH 25.4 pg (27.0-32.0); MCHC 32.2 g/dL (32.0-37.0); MCV 78.9 fL (80.0-97.0); Mean Platelet Volume 9.6 fL (9.5-12.2); Monocytes # (A) 1.73 10*3/uL (0.20-1.00); Neutrophils # (A) 5.17 10*3/uL (1.80-7.70); Neutrophils % (A) 41.9 %; RBC 4.17 10*6/uL (4.10-5.20); RDW 18.4 % (11.5-14.5); WBC 12.36 10*3/uL (4.50-10.00)
[2024-07-19] MEDS ORDERED: PROPOFOL 10 MG/ML 20 ML VIAL IV ONE (07:18)
[2024-07-19] MEDS ORDERED: LIDOCAINE 2% (PF) 20 MG/ML 5 ML VIAL ONE (07:18)
[2024-07-19] MEDS: IV FLUID CONTINUATION 1,000 ML IV ONE (07:25)
--- NOTE | 2024-07-19 08:07 | P.OP ---
Date of Procedure: 07/19/24 Preoperative Diagnosis: abdominal pain Possible colovesical fistulais Postoperative Diagnosis: antral gastritis Transverse colon polyp Procedure(s) Performed: colonoscopy Anesthesia: MAC Surgeon: Reji Clifford Pathology: other (antrum, transverse colon polyp) Condition: stable Disposition: PACU Description of Procedure: the patient's placed on the endoscopy table in the lateral position. She received IV sedation. The gastroscope placed oropharynx passed in the esophagus and the stomach. Scope was then placed through the pylorus. The first and second portion of the duodenumAppeared normal. Scope was then brought back the antrum this was minimal inflamed. A biopsies performed. Scope was unretroflexed and the remainder the stomach appeared normal. The GE junction was at 40 cm the distal esophagus appeared normal. The proximal esophagus appeared normal. Scope withdrawn for patient. Next digital rectal exam performed. This revealed no abnormalities. Flexible colonoscopy was then placed patient anus passed rotator entire colon. Ileocecal valve was visually is. The cecum, ascending colon appeared normal. In the proximal transverse colon was small sessile polyp. This removed the cold forcep. The descending and sigmoid colon appeared normal. There is no evidence of any diverticular changes. Scope back the rectum this appeared normal. The distal patient's symptoms a random rectal biopsies performed. Scope was withdrawn for patient.
--- NOTE | 2024-07-19 08:09 | P.OP ---
Date of Procedure: 07/19/24 Preoperative Diagnosis: left arm skin lesion Postoperative Diagnosis: defer to pathology Procedure(s) Performed: Punch biopsy of left upper arm Anesthesia: local Surgeon: Reji Clifford Pathology: other (skin lesion) Condition: stable Disposition: floor Description of Procedure: the patient's placed on her bed in the supine position. Her arm was prepped and draped usual fashion. Patient had received IV sedation and local anesthetic. Using the 4 mm punch biopsy 3 punch biopsy performed. The specimens of pathology. The patient SHE will. Sterile dressing applied.
[2024-07-19 08:56] LABS: Large Platelets Present; Platelet Count 515 10*3/uL (140-440)
[2024-07-19] MEDS: POTASSIUM CHLORIDE ER 20 MEQ TAB.ER PO SCH (09:06)
[2024-07-19] MEDS: methylPREDNISolone SOD SUCCI 125 MG/2 ML VIAL IV ONE (10:05)
[2024-07-19] MEDS: diphenhydrAMINE 50 MG/ML 1 ML VIAL IVP ONE (10:06)
[2024-07-19] MEDS: FAMOTIDINE 20 MG/2 ML VIAL IV ONE (10:06)
--- NOTE | 2024-07-19 11:45 | CT ---
EXAMINATION TYPE: CT Cystogram DATE OF EXAM: 07/19/2024 11:19 AM COMPARISON: 07/16/2024 CLINICAL INDICATION: Female, 64 years old with history of colovesical fistula, , TECHNIQUE: Contiguous axial scanning of the pelvis without IV contrast. Coronal and sagittal reconstr uctions performed. 30 mL Isovue-300 diluted and 500 mL saline was administered through the Arguelles cath eter. Images were taken prior to instillation, following instillation, and delayed scan as well. CT DLP: 2184.8 mGycm, Automated exposure control for dose reduction was used. FINDINGS: Sacral decubitus ulcer is noted soft tissue changes extend to the underlying bone. No progressive oss eous erosion. The ulcer appears to have filled in slightly in the interval. There is moderate circumferential bladder wall thickening. Bladder is decompressed. Following instill ation of contrast, we note a prominent vesicoureteral reflux extending up into the collecting systems where there is [id number] hydronephrosis. Filling defects within the collecting systems measure up to 1.3 cm on either side, probable debris an d clot. Correlate with urine cytology to exclude urothelial lesions. Underlying bilateral nephrolithiasis measuring up to 5 mm. There is pelvic floor relaxation. Uterus surgically absent. Ovaries not clearly seen. Moderate atherosclerotic calcifications distal abdominal aorta and common iliac arteries. No abnormal extraluminal extension of bladder contrast is identified. No abnormal fluid collection the pelvis or pelvic lymphadenopathy. Degenerative change of the hips. Status post L4-S1 posterior and anterior lumbar fusion. Advanced hyp ertrophic facet arthropathy with grade 1, nearly grade 2 anterolisthesis above the fusion at L3-L4. T race grade 1 anterolisthesis L2-L3. IMPRESSION: 1. ARGUELLES CATHETER placed for instillation of contrast into the bladder. There is moderate circumferen tial bladder wall thickening that could be chronic for the patient. Correlate to exclude cystitis. 2. No colovesical fistula is clearly identified by CT cystogram. Note severe vesicoureteral reflux in to the bilateral renal collecting systems and resulting mild to moderate hydronephrosis. 3. Filling defects within the bilateral renal collecting systems measuring up to 1.3 cm probably debr is or clot. Correlate with urinalysis and urine cytology to exclude urothelial lesions. 4. Underlying nephrolithiasis measuring up to 5 mm. 5. Pelvic floor relaxation. 6. Sacral decubitus ulcer has slightly filled in in the interval. Soft tissue changes extend to the u nderlying bone. No progressive erosions are seen. [facility], , 07/19/2024 11:42 AM
--- NOTE | 2024-07-19 13:37 | P.GSCN ---
History of Present Illness Consult date: 07/18/24 Reason for Consult: Hydronephrosis, UTI Requesting physician: Nahomy Washington History of present illness: The patient is a 64-year-old white female admitted for evaluation of abdominal pain. She has a history of kidney stones. She underwent ureteroscopic removal of calculi in early 2019. Urine culture currently shows polymicrobial. Her renal function is normal. CT scans have shown mild bladder distention and blas ateral hydroureteronephrosis, with bladder wall thickening. 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 Past Medical History Past Medical History: Cancer, Hearing Disorder / Deafness Additional Past Medical History / Comment(s): back pain; "several tia's-Last TIA 1 1/2 YEARS AGO, pluerisy, migraines, past falls, "was told at [facility] she had non-alcoholic cirrhosis". lung cancer History of Any Multi-Drug Resistant Organisms: ESBL Year Discovered:: 07/10/24 MDRO Source:: URINE Past Surgical History: Back Surgery, Breast Surgery, Cholecystectomy, Hysterectomy Additional Past Surgical History / Comment(s): back sx, neck sx. spleenectomy- d/t injury; benign R Breast lumpectomy, sinus sx Past Anesthesia/Blood Transfusion Reactions: No Reported Reaction Additional Past Anesthesia/Blood Transfusion Reaction / Comm: Pt hs c lausterphobia Past Psychological History: Depression Smoking Status: Former smoker Past Alcohol Use History: None Reported Past Drug Use History: None Reported - Past Family History Mother Family Medical History: Cancer Additional Family Medical History / Comment(s): Father History Unknown: Yes Family Medical History: No Reported History Additional Family Medical History / Comment(s): Father was murdered Medications and Allergies Home Medications Medication Instructions Recorded Confirmed Type ALPRAZolam [Xanax] 0.5 mg PO TID PRN 05/24/24 07/10/24 History Cyclobenzaprine [Flexeril] 5 mg PO BID@0900,1200 PRN 05/24/24 07/10/24 History Acetaminophen [Tylenol Extra 500 mg PO Q6H PRN 07/10/24 07/10/24 History Strength] Amino Acids/Protein Hydrolys 30 ml PO DAILY 07/10/24 07/10/24 History [Pro-Stat Awc Liquid] Baclofen 10 mg PO DAILY 07/10/24 07/10/24 History Buprenorphine [Butrans 7.5 MCG/HR] 1 patch TRANSDERM FR 07/10/24 07/10/24 History DULoxetine HCL [Cymbalta] 60 mg PO BID 07/10/24 07/10/24 History Ensure 1 can PO BID@0900,1700 07/10/24 07/10/24 History Mag Hydrox/Aluminum Hyd/Simeth 30 ml PO Q6H PRN 07/10/24 07/10/24 History [Mylanta Maximum Strength Liq] Morphine Sulfate Ir [MSIR] 15 mg PO Q6HR PRN 07/10/24 07/10/24 History Sennosides/Docusate Sodium [Senna 1 tab PO DAILY 07/10/24 07/10/24 History Plus 8.6-50 mg Tablet] Tetrahydrozoline 0.05% Ophth 1 drop BOTH EYES QID PRN 07/10/24 07/10/24 History [Visine Eye Drops] hydrALAZINE HCL [Apresoline] 50 mg PO TID PRN 07/10/24 07/10/24 History polyethylene glycoL 3350 [Miralax] 17 gm PO MOWEFR@2100 07/10/24 07/10/24 History Allergies Allergy/AdvReac Type Severity Reaction Status Date / Time gentamicin Allergy Anaphylaxis Verified 07/10/24 09:23 Iodinated Contrast Media Allergy Rash/Hives Verified 07/10/24 09:23 Surgical - Exam Vital Signs Temp Pulse Resp BP Pulse Ox 99.2 F 75 18 113/77 95 07/09/24 20:16 07/09/24 20:16 07/09/24 20:16 07/09/24 20:16 07/09/24 20:16 - General well developed, well nourished, no distress - Respiratory normal respiratory effort - Abdomen Abdomen: soft, non tender, no guarding, no rigid, no rebound - Psychiatric oriented to time, oriented to person, oriented to place, speech is normal, memory intact Results - Labs 07/19/24 06:05 07/19/24 06:05 Abnormal Lab Results - Last 24 Hours (Table) 07/17/24 07/17/24 Range/Units 05:33 05:33 WBC 15.59 H (4.50-10.00) 10*3/uL Hgb 10.9 L (12.0-15.0) g/dL Hct 33.7 L (37.2-46.3) % MCV 79.9 L (80.0-97.0) fL MCH 25.8 L (27.0-32.0) pg RDW 18.9 H (11.5-14.5) % Plt Count 512 H (140-440) 10*3/uL Immature Gran # 0.18 H (0.00-0.04) 10*3/uL Neutrophils # 8.30 H (1.80-7.70) 10*3/uL Monocytes # 2.06 H (0.20-1.00) 10*3/uL Eosinophils # 1.09 H (0.04-0.35) 10*3/uL Sodium 136 L (137-145) mmol/L Creatinine 0.49 L (0.52-1.04) mg/dL Microbiology - Last 24 Hours (Table) 07/12/24 14:51 Blood Culture - Final Blood Diabetes panel 07/17/24 Range/Units 05:33 Sodium 136 L (137-145) mmol/L Potassium 3.6 (3.5-5.1) mmol/L Chloride 107 (98-107) mmol/L Carbon Dioxide 22 (22-30) mmol/L BUN 7 (7-17) mg/dL Creatinine 0.49 L (0.52-1.04) mg/dL Glucose 91 (74-99) mg/dL Calcium 9.0 (8.4-10.2) mg/dL Calcium panel 07/17/24 Range/Units 05:33 Calcium 9.0 (8.4-10.2) mg/dL Pituitary panel 07/17/24 Range/Units 05:33 Sodium 136 L (137-145) mmol/L Potassium 3.6 (3.5-5.1) mmol/L Chloride 107 (98-107) mmol/L Carbon Dioxide 22 (22-30) mmol/L BUN 7 (7-17) mg/dL Creatinine 0.49 L (0.52-1.04) mg/dL Glucose 91 (74-99) mg/dL Calcium 9.0 (8.4-10.2) mg/dL Adrenal panel 07/17/24 Range/Units 05:33 Sodium 136 L (137-145) mmol/L Potassium 3.6 (3.5-5.1) mmol/L Chloride 107 (98-107) mmol/L Carbon Dioxide 22 (22-30) mmol/L BUN 7 (7-17) mg/dL Creatinine 0.49 L (0.52-1.04) mg/dL Glucose 91 (74-99) mg/dL Calcium 9.0 (8.4-10.2) mg/dL - Imaging CT scan - abdomen: report reviewed, image reviewed Assessment and Plan (1) Bilateral hydronephrosis Current Visit: No Status: Acute Code(s): N13.30 - UNSPECIFIED HYDRONEPHROSIS SNOMED Code(s): 99145970 Plan: There is concern of a colovesical fistula. In view of this, I agree with proceeding with a CT cystogram. Time with Patient: Greater than 30
--- NOTE | 2024-07-20 03:43 | PN ---
PROGRESS NOTE DATE OF SERVICE: 07/19/2024 SUBJECTIVE: This 64-year-old woman, who was admitted with UTI, also had abdominal pain. The patient also has skin rash and eosinophilia also. The patient underwent EGD and colonoscopy by Surgery. EGD showed antral gastritis and the transverse colon polyp was also noted. No fever, no cough. OBJECTIVE: VITAL SIGNS: Pulse is 83, blood pressure 106/69, and respirations 18. CHEST: Clear to auscultation. CARDIOVASCULAR: S1, S2. ABDOMEN: Soft, nontender. SKIN: No skin lesions present. LABORATORY DATA: WBC 12.36. ASSESSMENT: 1. Extended-spectrum beta-lactamase Klebsiella urinary tract infection. 2. Bilateral hydronephrosis. 3. Severe eosinophilia, longstanding with monocytosis, acute on chronic. 4. Skin rash, possibly allergic. 5. Sacral pressure injury. 6. Multiple complex medical issues. 7. Chronic hydronephrosis and bladder wall thickening. RECOMMENDATION: Continue current medications, symptomatic treatment. Otherwise, we will closely follow with the Hematology and the Infectious Disease. Guarded prognosis. Further recommendations to follow. MMODL / IJN: [id number] /
[2024-07-20 10:03] LABS: Basophils # (A) 0.02 X 10*3/uL (0.00-0.10); Basophils % (A) 0.1 %; Eosinophils # (A) 0 X 10*3/uL (0.04-0.35); Eosinophils % (A) 0 %; HCT 35.2 % (37.2-46.3); HGB 10.6 g/dL (12.0-15.0); Lymphocytes # (A) 2.37 X 10*3/uL (0.90-5.00); Lymphocytes % (A) 17.5 %; MCH 24.9 pg (27.0-32.0); MCHC 30.1 g/dL (32.0-37.0); MCV 82.8 FL (80.0-97.0); Mean Platelet Volume 10.4 FL (9.5-12.2); Monocytes # (A) 1.12 X 10*3/uL (0.20-1.00); Monocytes % (A) 8.3 %; NRBC Per 100 WBC 0 X 10*3/uL (0.00-0.01); Neutrophils # (A) 9.98 X 10*3/uL (1.80-7.70); Neutrophils % (A) 73.7 %; Platelet Count 557 X 10*3/uL (140-440); RBC 4.25 X 10*6/uL (4.10-5.20); RDW 18.6 % (11.5-14.5); WBC 13.54 X 10*3/uL (4.50-10.00)
[2024-07-20] MEDS: MEROPENEM 1 GM in SODIUM CHLORIDE 0.9% 100 ML IVPB SCH (10:22)
--- NOTE | 2024-07-20 13:15 | P.PN ---
Subjective Progress Note Date: 07/20/24 Principal diagnosis: Hydronephrosis The patient is a 64-year-old white female admitted for evaluation of abdominal pain. CT scan showed bladder wall thickening and hydronephrosis. Urine culture showed a polymicrobial christine, the significance of which is unclear. CT cystogram shows bladder wall thickening, bilateral vesicoureteral reflux, and possible renal pelvic filling defects. Her primary complaint at this time is persistent epigastric abdominal pain and nausea. She underwent EGD and colonoscopy yesterday. Objective - Vital Signs Vital signs: Vital Signs Temp 98.0 F 07/20/24 01:36 Pulse 78 07/20/24 01:36 Resp 17 07/20/24 01:36 BP 140/80 07/20/24 01:36 Pulse Ox 93 L 07/20/24 01:36 FiO2 Intake & Output 07/19/24 07/20/24 07/20/24 18:59 06:59 18:59 Intake Total 500 Output Total 900 300 Balance -400 -300 Weight 81.647 kg Intake: IV 500 Output: Urine 900 300 Stool 0 Other: Voiding Method Diaper Diaper Incontinent Incontinent - Constitutional General appearance: Present: average body habitus, cooperative, no acute distress - Psychiatric Psychiatric: Present: A&O x's 3 - Labs CBC & Chem 7: 07/20/24 04:22 07/19/24 19:13 Labs: Abnormal Lab Results - Last 24 Hours (Table) 07/19/24 Range/Units 06:05 WBC 12.36 H (4.50-10.00) 10*3/uL Hgb 10.6 L (12.0-15.0) g/dL Hct 32.9 L (37.2-46.3) % MCV 78.9 L (80.0-97.0) fL MCH 25.4 L (27.0-32.0) pg RDW 18.4 H (11.5-14.5) % Plt Count 515 H (140-440) 10*3/uL Immature Gran # 0.15 H (0.00-0.04) 10*3/uL Monocytes # 1.73 H (0.20-1.00) 10*3/uL Eosinophils # 0.92 H (0.04-0.35) 10*3/uL Assessment and Plan (1) Bilateral hydronephrosis Current Visit: No Status: Acute Code(s): N13.30 - UNSPECIFIED HYDRONEPHROSIS SNOMED Code(s): 34013378 Plan: Colonoscopy and CT cystogram show no evidence of a colovesical fistula. Given the CT scan findings, I believe the patient would benefit from urodynamic testing. Additionally, she would benefit from cystoscopy, bilateral retrograde pyelograms, and possible ureteroscopy as an outpatient.
--- NOTE | 2024-07-20 15:12 | P.PN ---
Subjective Progress Note Date: 07/19/24 Principal diagnosis: Reason for follow-up is complicated UTI Patient is a 64-year-old female with a past medical history significant for TIA depression did have history of left heel infected ulcer with osteomyelitis present to the hospital abdominal pain he did have a abdominal CT concerning for bilateral hydronephrosis hydroureter and question of cystitis with urine culture multiple pathogen prompted this consultation. On today's evaluation that is 07/19/2024, Patient is afebrile this morning patient denies having any chest pain shortness of breath or cough, the patient is currently on 2 L nasal oxygen, patient denies any abdominal pain no diarrhea no nausea no vomiting. Patient white count is down to 12.36 creatinine 0.46 Objective - Vital Signs Vital signs: Vital Signs Temp 97.8 F 07/19/24 14:28 Pulse 83 07/19/24 14:28 Resp 18 07/19/24 14:28 BP 106/67 07/19/24 14:28 Pulse Ox 96 07/19/24 14:28 FiO2 Intake & Output 07/18/24 07/19/24 07/19/24 18:59 06:59 18:59 Intake Total 500 Output Total 0 Balance 500 Weight 81.647 kg Intake: IV 500 Output: Stool 0 Other: Voiding Method Incontinent Diaper Diaper Incontinent Incontinent # Voids 2 1 # Bowel Movements 1 1 - Exam GENERAL DESCRIPTION: An elderly female lying in bed in no distress RESPIRATORY SYSTEM: Unlabored breathing , decreased breath sounds at bases HEART: S1 S2 regular rate and rhythm , ABDOMEN: Soft , no tenderness, patient did have a stage III sacral pressure ulcer wound base looks clean no slough or surrounding redness EXTREMITIES: Left heel stage III ulcer but no slough tissue or surrounding redness - Labs CBC & Chem 7: 07/20/24 04:22 07/19/24 19:13 Labs: Abnormal Lab Results - Last 24 Hours (Table) 07/18/24 07/19/24 07/19/24 Range/Units 10:42 06:05 06:05 WBC 12.36 H (4.50-10.00) 10*3/uL Hgb 10.6 L (12.0-15.0) g/dL Hct 32.9 L (37.2-46.3) % MCV 78.9 L (80.0-97.0) fL MCH 25.4 L (27.0-32.0) pg RDW 18.4 H (11.5-14.5) % Plt Count 515 H (140-440) 10*3/uL Immature Gran # 0.15 H (0.00-0.04) 10*3/uL Monocytes # 1.73 H (0.20-1.00) 10*3/uL Eosinophils # 0.92 H (0.04-0.35) 10*3/uL Potassium 3.3 L (3.5-5.1) mmol/L BUN 3 L (7-17) mg/dL Creatinine 0.46 L (0.52-1.04) mg/dL Iron 33 L (50-170) UG/DL Transferrin 177.0 L (204.0-354.0) mg/dL Assessment and Plan (1) Infection due to ESBL-producing Klebsiella pneumoniae Current Visit: Yes Status: Acute Code(s): A49.8 - OTHER BACTERIAL INFECTIONS OF UNSPECIFIED SITE; Z16.12 - EXTENDED SPECTRUM BETA LACTAMASE (ESBL) RESISTANCE SNOMED Code(s): 702447538 (2) Hydronephrosis Current Visit: Yes Status: Acute Code(s): N13.30 - UNSPECIFIED HYDRONEPHROSIS SNOMED Code(s): 26631232 (3) UTI (urinary tract infection) Current Visit: Yes Status: Acute Code(s): N39.0 - URINARY TRACT INFECTION, SITE NOT SPECIFIED SNOMED Code(s): 38754317 (4) Leukocytosis Current Visit: No Status: Acute Code(s): D72.829 - ELEVATED WHITE BLOOD CELL COUNT, UNSPECIFIED SNOMED Code(s): 882854755 Plan: 1patient presented to hospital with lower abdominal pain she also have significant mental status changes did have elevated white count meeting criteria for symptomatic/complicated UTI with urine culture showing multidrug-resistant pathogen including Pseudomonas he has been Klebsiella and E. coli 2left heel stage III pressure ulcer without cellulitis, patient does have a stage III sacral pressure ulcer, recommend to keep the area of the pressure and treat with a dry Aquacel silver dressing 3patient is afebrile patient white count is trending down 4patient is currently on meropenem to continue and monitor clinical course closely Dictation was produced using [employer] software. please excuse any grammatical, word or spelling errors. Time with Patient: Less than 30
[2024-07-20 16:51] LABS: Appearance,Urine Cloudy (Clear); Bacteria,Urine Rare /hpf; Bilirubin,Urine Negative (Negative); Blood,Urine Negative (Negative); Color,Urine Colorless; Glucose,Urine (UA) Negative (Negative); Ketones,Urine Negative (Negative); Leukocyte Esterase,Urine Large (Negative); Mucus,Urine Rare /hpf; Nitrite,Urine Negative (Negative); PH, Urine 6.5 (5.0-8.0); Protein,Urine Negative (Negative); RBC,Urine 5 /hpf (0-5); Specific Gravity,Urine 1.007 (1.001-1.035); Squamous Epithelial Cell,Urine 1 /hpf (0-4); Urobilinogen,Urine <2.0 mg/dL (<2.0); WBC,Urine >182 /hpf (0-5)
--- NOTE | 2024-07-20 16:52 | P.PN ---
Subjective Progress Note Date: 07/20/24 Principal diagnosis: Reason for follow-up is complicated UTI Patient is a 64-year-old female with a past medical history significant for TIA depression did have history of left heel infected ulcer with osteomyelitis present to the hospital abdominal pain he did have a abdominal CT concerning for bilateral hydronephrosis hydroureter and question of cystitis with urine culture multiple pathogen prompted this consultation. On today's evaluation that is 07/20/2024,the patient denies any fever or any chills, patient is breathing comfortably on 2 L nasal oxygen, the patient denies chest pain shortness of breath and no significant cough, patient denies abdominal pain, no nausea vomiting or diarrhea. Patient white count is 13.5 4 repeat UA is positive ordered by urology Objective - Vital Signs Vital signs: Vital Signs Temp 97.6 F 07/20/24 07:00 Pulse 77 07/20/24 07:00 Resp 17 07/20/24 07:00 BP 102/64 07/20/24 07:00 Pulse Ox 97 07/20/24 07:00 FiO2 Intake & Output 07/19/24 07/20/24 07/20/24 18:59 06:59 18:59 Intake Total 500 Output Total 900 300 Balance -400 -300 Weight 81.647 kg Intake: IV 500 Output: Urine 900 300 Stool 0 Other: Voiding Method Diaper Diaper Incontinent Incontinent - Exam GENERAL DESCRIPTION: An elderly female lying in bed in no distress RESPIRATORY SYSTEM: Unlabored breathing , decreased breath sounds at bases HEART: S1 S2 regular rate and rhythm , ABDOMEN: Soft , no tenderness, patient did have a stage III sacral pressure ulcer wound base looks clean no slough or surrounding redness EXTREMITIES: Left heel stage III ulcer but no slough tissue or surrounding redness - Labs CBC & Chem 7: 07/20/24 04:22 07/19/24 19:13 Labs: Abnormal Lab Results - Last 24 Hours (Table) 07/20/24 Range/Units 04:22 WBC 13.54 H (4.50-10.00) X 10*3/uL Hgb 10.6 L (12.0-15.0) g/dL Hct 35.2 L (37.2-46.3) % MCH 24.9 L (27.0-32.0) pg MCHC 30.1 L (32.0-37.0) g/dL RDW 18.6 H (11.5-14.5) % Plt Count 557 H (140-440) X 10*3/uL Immature Gran # 0.05 H (0.00-0.04) X 10*3/uL Neutrophils # 9.98 H (1.80-7.70) X 10*3/uL Monocytes # 1.12 H (0.20-1.00) X 10*3/uL Eosinophils # 0 L (0.04-0.35) X 10*3/uL Assessment and Plan (1) Infection due to ESBL-producing Klebsiella pneumoniae Current Visit: Yes Status: Acute Code(s): A49.8 - OTHER BACTERIAL INFECTIONS OF UNSPECIFIED SITE; Z16.12 - EXTENDED SPECTRUM BETA LACTAMASE (ESBL) RESISTANCE SNOMED Code(s): 815630800 (2) Hydronephrosis Current Visit: Yes Status: Acute Code(s): N13.30 - UNSPECIFIED HYDRONEPHROSIS SNOMED Code(s): 36596415 (3) UTI (urinary tract infection) Current Visit: Yes Status: Acute Code(s): N39.0 - URINARY TRACT INFECTION, SITE NOT SPECIFIED SNOMED Code(s): 89238861 (4) Leukocytosis Current Visit: No Status: Acute Code(s): D72.829 - ELEVATED WHITE BLOOD CELL COUNT, UNSPECIFIED SNOMED Code(s): 562966966 Plan: 1patient presented to hospital with lower abdominal pain she also have significant mental status changes did have elevated white count meeting criteria for symptomatic/complicated UTI with urine culture showing multidrug-resistant pathogen including Pseudomonas he has been Klebsiella and E. coli 2left heel stage III pressure ulcer without cellulitis, patient does have a stage III sacral pressure ulcer, recommend to keep the area of the pressure and treat with a dry Aquacel silver dressing 3patient is afebrile patient white count is slightly up today did have repeat UA ordered by urology cultures will be followed for now continue with the meropenem Multiple family members at the bedside question answered Dictation was produced using [employer] dictation software. please excuse any grammatical, word or spelling errors. Time with Patient: Less than 30
[2024-07-20] MEDS: HYDROmorphone 0.5 MG/0.5 ML SYRINGE IVP PRN (20:32)
--- NOTE | 2024-07-20 23:34 | PN ---
PROGRESS NOTE DATE OF SERVICE: 07/20/2024 SUBJECTIVE: This is a 64-year-old woman who was admitted with UTI and also bilateral hydronephrosis. The patient is complaining of abdominal discomfort at this time. The patient had a CT cystogram also, which was reviewed. PAST MEDICAL HISTORY: Reviewed. REVIEW OF SYSTEMS: Fourteen-point review of systems negative except as mentioned earlier. CURRENT MEDICATIONS: Reviewed. PHYSICAL EXAMINATION: VITAL SIGNS: Pulse is 77, blood pressure 106/82, respirations 17. HEENT: Conjunctivae normal. CARDIOVASCULAR: S1, S2. ABDOMEN: Soft. Mild diffuse discomfort and tenderness. No guarding or rigidity. No mass palpable. EXTREMITIES: Legs, no edema. NERVOUS SYSTEM: No focal deficits. LABORATORY DATA: WBC 18.4. Rest of the labs are noted. ASSESSMENT: 1. Extended spectrum beta-lactamase Klebsiella urinary tract infection. 2. Bilateral hydronephrosis with abdominal pain. 3. Severe eosinophilia, longstanding, with monocytosis, acute on chronic. 4. Skin rash, possibly allergic. 5. Sacral pressure injury. 6. Chronic hydronephrosis and bladder wall thickening. 7. Multiple complex medical issues. RECOMMENDATION: Continue current management and treatment. Otherwise, at this time I recommend pain management. Continue the broad-spectrum IV antibiotics. The initial urine culture showed multiple organisms. Repeat culture was polymicrobial. I recommend to repeat UA and once again urine culture also just to ensure normalcy. Otherwise, continue rest of medications. See orders for details. Further recommendations follow. MMODL / IJN: [id number] /
[2024-07-21] MEDS: NICOTINE 14MG/24HR PATCH TRANSDERM SCH (07:32)
[2024-07-21 09:26] LABS: Basophils # (A) 0.07 X 10*3/uL (0.00-0.10); Basophils % (A) 0.5 %; Eosinophils # (A) 0.27 X 10*3/uL (0.04-0.35); Eosinophils % (A) 2.1 %; HCT 34.6 % (37.2-46.3); HGB 10.3 g/dL (12.0-15.0); Lymphocytes # (A) 4.35 X 10*3/uL (0.90-5.00); Lymphocytes % (A) 33.3 %; MCH 25.1 pg (27.0-32.0); MCHC 29.8 g/dL (32.0-37.0); MCV 84.4 FL (80.0-97.0); Mean Platelet Volume 10.1 FL (9.5-12.2); Monocytes # (A) 1.76 X 10*3/uL (0.20-1.00); Monocytes % (A) 13.5 %; NRBC Per 100 WBC 0 X 10*3/uL (0.00-0.01); Neutrophils # (A) 6.57 X 10*3/uL (1.80-7.70); Neutrophils % (A) 50.4 %; Platelet Count 526 X 10*3/uL (140-440); RDW 18.8 % (11.5-14.5); WBC 13.05 X 10*3/uL (4.50-10.00)
[2024-07-21 09:44] LABS: Blood Urea Nitrogen 4.8 mg/dL (9.0-27.0); Calcium 8.1 mg/dL (8.7-10.3); Carbon Dioxide 25.2 mmol/L (21.6-31.8); Chloride 108 mmol/L (96-109); Glucose 106 mg/dL (70-110); Sodium 143 mmol/L (135-145)
[2024-07-21] MEDS ORDERED: Potassium Replacement Protocol 1 EACH MISC MISCELLANE PRN (13:51)
[2024-07-21] MEDS ORDERED: POTASSIUM CHLORIDE ER 20 MEQ TAB.ER PO SCH (14:00)
[2024-07-21] MEDS: POTASSIUM CHLORIDE ER 20 MEQ TAB.ER PO SCH ×2 (14:15→18:23)
--- NOTE | 2024-07-21 16:52 | P.PN ---
Subjective Progress Note Date: 07/21/24 Principal diagnosis: Hydronephrosis, UTI The patient is a 64-year-old white female admitted for evaluation of abdominal pain. CT scan showed bladder wall thickening and hydronephrosis. Urine culture showed Pseudomonas aeruginosa, E. coli, and Klebsiella pneumoniae. CT cystogram shows bladder wall thickening, bilateral vesicoureteral reflux, and possible renal pelvic filling defects. Her primary complaint at this time is persistent epigastric abdominal pain and nausea, which she states is improved today. She underwent EGD and colonoscopy on July 19, 2024. Objective - Vital Signs Vital signs: Vital Signs Temp 97.8 F 07/21/24 15:00 Pulse 75 07/21/24 15:00 Resp 17 07/21/24 15:00 BP 107/70 07/21/24 15:00 Pulse Ox 97 07/21/24 15:00 FiO2 Intake & Output 07/20/24 07/21/24 07/21/24 18:59 06:59 18:59 Output Total 1172 400 Balance -1172 -400 Output: Urine 775 400 Straight 275 Post Void Residual 397 Other: Voiding Method Diaper Diaper Diaper Incontinent Incontinent Incontinent # Voids 1 4 4 # Bowel Movements 1 1 2 - Constitutional General appearance: Present: average body habitus, cooperative, no acute distress - Psychiatric Psychiatric: Present: A&O x's 3 - Labs CBC & Chem 7: 07/21/24 03:14 07/21/24 03:14 Labs: Abnormal Lab Results - Last 24 Hours (Table) 07/20/24 07/21/24 07/21/24 Range/Units 16:26 03:14 03:14 WBC 13.05 H (4.50-10.00) X 10*3/uL Hgb 10.3 L (12.0-15.0) g/dL Hct 34.6 L (37.2-46.3) % MCH 25.1 L (27.0-32.0) pg MCHC 29.8 L (32.0-37.0) g/dL RDW 18.8 H (11.5-14.5) % Plt Count 526 H (140-440) X 10*3/uL Monocytes # 1.76 H (0.20-1.00) X 10*3/uL Potassium 3.0 L (3.5-5.5) mmol/L BUN 4.8 L (9.0-27.0) mg/dL Creatinine 0.5 L (0.6-1.5) mg/dL BUN/Creatinine Ratio 9.60 L (12.00-20.00) Ratio Calcium 8.1 L (8.7-10.3) mg/dL Urine Appearance Cloudy H (Clear) Ur Leukocyte Esterase Large H (Negative) Urine WBC >182 H (0-5) /hpf Urine Bacteria Rare H (None) /hpf Urine Mucus Rare H (None) /hpf Assessment and Plan (1) Bilateral hydronephrosis Current Visit: No Status: Acute Code(s): N13.30 - UNSPECIFIED HYDRONEPHROSIS SNOMED Code(s): 90776998 Plan: Colonoscopy and CT cystogram show no evidence of a colovesical fistula. Given the CT scan findings, I have recommended that the patient undergo cystoscopy, bilateral retrograde pyelograms, and ureteroscopy. The rationale for this was reviewed in detail with the patient, along with potential risks. I intend to perform this procedure on July 25, either while hospitalized or as an outpatient.
--- NOTE | 2024-07-21 16:54 | P.PN ---
Subjective Progress Note Date: 07/21/24 Principal diagnosis: Reason for follow-up is complicated UTI Patient is a 64-year-old female with a past medical history significant for TIA depression did have history of left heel infected ulcer with osteomyelitis present to the hospital abdominal pain he did have a abdominal CT concerning for bilateral hydronephrosis hydroureter and question of cystitis with urine culture multiple pathogen prompted this consultation. On today's evaluation that is 07/21/2024,the patient remains to be afebrile, patient is on 2 L nasal cannula supplemental oxygen and does not seem to be in respiratory distress sleepy did not answer any question no vomiting or diarrhea has been reported. Patient did have a white count of 13.05, creatinine 0.5 repeat urine cultures pending Objective - Vital Signs Vital signs: Vital Signs Temp 97.8 F 07/21/24 15:00 Pulse 75 07/21/24 15:00 Resp 17 07/21/24 15:00 BP 107/70 07/21/24 15:00 Pulse Ox 97 07/21/24 15:00 FiO2 Intake & Output 07/20/24 07/21/24 07/21/24 18:59 06:59 18:59 Output Total 1172 400 Balance -1172 -400 Output: Urine 775 400 Straight 275 Post Void Residual 397 Other: Voiding Method Diaper Diaper Diaper Incontinent Incontinent Incontinent # Voids 1 4 4 # Bowel Movements 1 1 2 - Exam GENERAL DESCRIPTION: An elderly female lying in bed in no distress RESPIRATORY SYSTEM: Unlabored breathing , decreased breath sounds at bases HEART: S1 S2 regular rate and rhythm , ABDOMEN: Soft , no tenderness, patient did have a stage III sacral pressure ulcer wound base looks clean no slough or surrounding redness EXTREMITIES: Left heel stage III ulcer but no slough tissue or surrounding redness - Labs CBC & Chem 7: 07/21/24 03:14 07/21/24 03:14 Labs: Abnormal Lab Results - Last 24 Hours (Table) 07/21/24 07/21/24 Range/Units 03:14 03:14 WBC 13.05 H (4.50-10.00) X 10*3/uL Hgb 10.3 L (12.0-15.0) g/dL Hct 34.6 L (37.2-46.3) % MCH 25.1 L (27.0-32.0) pg MCHC 29.8 L (32.0-37.0) g/dL RDW 18.8 H (11.5-14.5) % Plt Count 526 H (140-440) X 10*3/uL Monocytes # 1.76 H (0.20-1.00) X 10*3/uL Potassium 3.0 L (3.5-5.5) mmol/L BUN 4.8 L (9.0-27.0) mg/dL Creatinine 0.5 L (0.6-1.5) mg/dL BUN/Creatinine Ratio 9.60 L (12.00-20.00) Ratio Calcium 8.1 L (8.7-10.3) mg/dL Assessment and Plan (1) Infection due to ESBL-producing Klebsiella pneumoniae Current Visit: Yes Status: Acute Code(s): A49.8 - OTHER BACTERIAL INFECTIONS OF UNSPECIFIED SITE; Z16.12 - EXTENDED SPECTRUM BETA LACTAMASE (ESBL) RESISTANCE SNOMED Code(s): 115083694 (2) Hydronephrosis Current Visit: Yes Status: Acute Code(s): N13.30 - UNSPECIFIED HYDRONEPHROSIS SNOMED Code(s): 51177282 (3) UTI (urinary tract infection) Current Visit: Yes Status: Acute Code(s): N39.0 - URINARY TRACT INFECTION, SITE NOT SPECIFIED SNOMED Code(s): 32123508 (4) Leukocytosis Current Visit: No Status: Acute Code(s): D72.829 - ELEVATED WHITE BLOOD CELL COUNT, UNSPECIFIED SNOMED Code(s): 454244008 Plan: 1patient presented to hospital with lower abdominal pain she also have significant mental status changes did have elevated white count meeting criteria for symptomatic/complicated UTI with urine culture showing multidrug-resistant pathogen including Pseudomonas he has been Klebsiella and E. coli 2left heel stage III pressure ulcer without cellulitis, patient does have a stage III sacral pressure ulcer, recommend to keep the area of the pressure and treat with a dry Aquacel silver dressing 3patient is afebrile patient white count is about the same as yesterday repeat urine cultures are pending continue with the meropenem and monitor clinical course closely Dictation was produced using [employer] software. please excuse any grammatical, word or spelling errors. Time with Patient: Less than 30
[2024-07-21] MEDS: POTASSIUM CHLORIDE ER 20 MEQ TAB.ER PO STA (22:44)
[2024-07-22 04:14] LABS: African American GFR (CKD) >90 (>60 ml/min/1.73 sqM); Anion Gap 5 mmol/L; Blood Urea Nitrogen 2 mg/dL (7-17); Calcium 8.6 mg/dL (8.4-10.2); Carbon Dioxide 27 mmol/L (22-30); Chloride 110 mmol/L (98-107); Glucose 77 mg/dL (74-99); Non-African American GFR(CKD) >90 (>60 ml/min/1.73 sqM); Potassium 4.1 mmol/L (3.5-5.1); Sodium 142 mmol/L (137-145)
--- NOTE | 2024-07-22 05:21 | PN ---
PROGRESS NOTE DATE OF SERVICE: 07/21/2024 SUBJECTIVE: This 64-year-old woman was admitted with UTI, also had multiple other complex medical issues. Also, the patient had endoscopy with biopsies are pending at this time. OBJECTIVE: VITAL SIGNS: Pulse is 75, blood pressure 107/70, respirations 17. CHEST: Clear to auscultation. ABDOMEN: Obese, mild diffuse tenderness. No guarding. No rigidity. NERVOUS SYSTEM: Focal deficits. LABORATORY DATA: Noted. ASSESSMENT: 1. Extended-spectrum beta-lactamase Klebsiella urinary tract infection. 2. Bilateral hydronephrosis with abdominal pain. 3. Severe eosinophilia, longstanding with monocytosis, [id number]. 4. Skin rash, possibly allergic. 5. Sacral pressure injury. 6. Chronic hydronephrosis and bladder wall thickening. 7. Multiple complex medical issues. RECOMMENDATION: Continue current management and treatment. Await cultures. Await biopsy reports. Otherwise, Urology is planning cystoscopy and further evaluation. The UA is still abnormal. I would recommend repeat urine culture and continue to monitor. Prognosis guarded. Further recommendations to follow. See orders for further details. MMODL / IJN: [id number] /
[2024-07-22 07:12] LABS: Glucose,Whole Blood 71 mg/dL (70-110)
[2024-07-22 07:46] LABS: Basophils # (A) 0.06 10*3/uL (0.00-0.10); Basophils % (A) 0.6 %; Eosinophils # (A) 0.51 10*3/uL (0.04-0.35); Eosinophils % (A) 5.3 %; HCT 39.9 % (37.2-46.3); HGB 12.3 g/dL (12.0-15.0); Lymphocytes # (A) 3.48 10*3/uL (0.90-5.00); Lymphocytes % (A) 36.5 %; MCH 25.6 pg (27.0-32.0); MCHC 30.8 g/dL (32.0-37.0); MCV 83.1 fL (80.0-97.0); Mean Platelet Volume 9.8 fL (9.5-12.2); Monocytes # (A) 1.38 10*3/uL (0.20-1.00); Monocytes % (A) 14.5 %; Neutrophils # (A) 4.08 10*3/uL (1.80-7.70); Neutrophils % (A) 42.8 %; Platelet Count 378 10*3/uL (140-440); RDW 19.1 % (11.5-14.5); WBC 9.54 10*3/uL (4.50-10.00)
--- NOTE | 2024-07-22 08:42 | P.PN ---
Subjective Progress Note Date: 07/22/24 The patient is to have surgery by Dr Espinoza on 07/25. The patient has been made aware. Objective - Vital Signs Vital signs: Vital Signs Temp 97.7 F 07/22/24 02:00 Pulse 73 07/22/24 02:00 Resp 18 07/22/24 02:00 BP 115/73 07/22/24 02:00 Pulse Ox 98 07/22/24 02:00 FiO2 Intake & Output 07/21/24 07/22/24 07/22/24 18:59 06:59 18:59 Intake Total 540 Balance 540 Intake: Oral 540 Other: Voiding Method Diaper Diaper Incontinent Incontinent # Voids 4 # Bowel Movements 2 - Labs CBC & Chem 7: 07/22/24 06:02 07/22/24 02:55 Labs: Abnormal Lab Results - Last 24 Hours (Table) 07/21/24 07/21/24 07/21/24 Range/Units 03:14 03:14 16:49 WBC 13.05 H (4.50-10.00) X 10*3/uL Hgb 10.3 L (12.0-15.0) g/dL Hct 34.6 L (37.2-46.3) % MCH 25.1 L (27.0-32.0) pg MCHC 29.8 L (32.0-37.0) g/dL RDW 18.8 H (11.5-14.5) % Plt Count 526 H (140-440) X 10*3/uL Monocytes # 1.76 H (0.20-1.00) X 10*3/uL Eosinophils # (0.04-0.35) 10*3/uL Potassium 3.0 L 3.4 L (3.5-5.5) mmol/L Chloride (98-107) mmol/L BUN 4.8 L (9.0-27.0) mg/dL Creatinine 0.5 L (0.6-1.5) mg/dL BUN/Creatinine Ratio 9.60 L (12.00-20.00) Ratio Calcium 8.1 L (8.7-10.3) mg/dL 07/22/24 07/22/24 Range/Units 02:55 06:02 WBC (4.50-10.00) X 10*3/uL Hgb (12.0-15.0) g/dL Hct (37.2-46.3) % MCH 25.6 L (27.0-32.0) pg MCHC 30.8 L (32.0-37.0) g/dL RDW 19.1 H (11.5-14.5) % Plt Count (140-440) X 10*3/uL Monocytes # 1.38 H (0.20-1.00) X 10*3/uL Eosinophils # 0.51 H (0.04-0.35) 10*3/uL Potassium (3.5-5.5) mmol/L Chloride 110 H (98-107) mmol/L BUN 2 L (9.0-27.0) mg/dL Creatinine 0.40 L (0.6-1.5) mg/dL BUN/Creatinine Ratio (12.00-20.00) Ratio Calcium (8.7-10.3) mg/dL Microbiology - Last 24 Hours (Table) 07/20/24 16:26 Urine Culture - Preliminary Urine,Catheterized
--- NOTE | 2024-07-22 13:47 | P.PN ---
Subjective Progress Note Date: 07/22/24 SURGICAL PROGRESS NOTE CHIEF COMPLAINT: UTI HISTORY OF PRESENT ILLNESS: Patient status post EGD and colonoscopy on 07/19/2024 reports gastritis and transverse colon polyp. She is also status post punch bi opsy of left arm skin lesion. Pathology results pending. Vital stable. Followed by urology and scheduled for urology procedure on . CT cystogram reports no colovesical fistula. PHYSICAL EXAM: VITAL SIGNS: Reviewed. GENERAL: Well-developed in no acute distress. ABDOMEN: Soft. Nondistended. Mild tenderness across upper abdomen NEUROLOGIC: Alert and oriented. Cranial nerves II through XII grossly intact. ASSESSMENT: 1. Abdominal pain across upper abdomen. Status post EGD and colonoscopy reporting gastritis and transverse colon polyp 2. Left arm skin lesion status post punch biopsy PLAN: - Follow-up on pathology results - Advance diet to full liquids and then as tolerated - Continue urology workup. Urology procedure on . Physician Offset Pressman note has been reviewed by physician. Signing provider agrees with the documented findings, assessment, and plan of care. Objective - Vital Signs Vital signs: Vital Signs Temp 97.5 F L 07/22/24 07:00 Pulse 86 07/22/24 07:00 Resp 16 07/22/24 07:00 BP 99/55 07/22/24 07:00 Pulse Ox 96 07/22/24 09:42 FiO2 Intake & Output 07/21/24 07/22/24 07/22/24 18:59 06:59 18:59 Intake Total 540 600 Balance 540 600 Intake: Oral 540 600 Other: Voiding Method Diaper Diaper Incontinent Incontinent # Voids 4 2 # Bowel Movements 2 1 - Labs CBC & Chem 7: 07/22/24 06:02 07/22/24 02:55 Labs: Abnormal Lab Results - Last 24 Hours (Table) 07/21/24 07/22/24 07/22/24 Range/Units 16:49 02:55 06:02 MCH 25.6 L (27.0-32.0) pg MCHC 30.8 L (32.0-37.0) g/dL RDW 19.1 H (11.5-14.5) % Monocytes # 1.38 H (0.20-1.00) 10*3/uL Eosinophils # 0.51 H (0.04-0.35) 10*3/uL Potassium 3.4 L (3.5-5.1) mmol/L Chloride 110 H (98-107) mmol/L BUN 2 L (7-17) mg/dL Creatinine 0.40 L (0.52-1.04) mg/dL Microbiology - Last 24 Hours (Table) 07/20/24 16:26 Urine Culture - Preliminary Urine,Catheterized
--- NOTE | 2024-07-22 16:13 | PN ---
PROGRESS NOTE DATE OF SERVICE: 07/22/2024 SUBJECTIVE: This 64-year-old woman, who was admitted with UTI, also had multiple medical issues. At this time, the EGD and colonoscopy done. Urology is also following the patient closely. OBJECTIVE: VITAL SIGNS: Pulse is 86, blood pressure 90/50, and respirations 16. CHEST: Clear to auscultation. ABDOMEN: Soft. LABORATORY DATA: Labs are reviewed. ASSESSMENT: 1. Extended spectrum beta lactamase Klebsiella urinary tract infection. 2. Bilateral hydronephrosis with abdominal pain. 3. Severe eosinophilia, longstanding, with monocytosis, acute on chronic. 4. Skin rash, possibly allergic. 5. Sacral pressure injury. 6. Chronic hydronephrosis and bladder wall thickening, for evaluation. 7. Multiple complex medical issues. 8. No evidence of any colovesical fistula as of now. RECOMMENDATIONS: Recommend to continue current management and symptomatic treatment. Otherwise continue with antibiotics. The patient's UA is still abnormal and cloudy. Closely follow with Urology and multiple consultants. Repeat labs. Recent urine culture is negative. Further recommendations to follow. MMODL / IJN: [id number] /
--- NOTE | 2024-07-22 18:49 | P.PN ---
Subjective Progress Note Date: 07/22/24 At todays visit, pt reporting feeling well. Hgb stable at 12.3. S/p colonoscopy and skin biopsy. No acute bleed noted. Continues on IV abx for UTI Objective - Vital Signs Vital signs: Vital Signs Temp 97.5 F L 07/22/24 07:00 Pulse 86 07/22/24 07:00 Resp 16 07/22/24 07:00 BP 99/55 07/22/24 07:00 Pulse Ox 96 07/22/24 09:42 FiO2 Intake & Output 07/21/24 07/22/24 07/22/24 18:59 06:59 18:59 Intake Total 540 600 Balance 540 600 Intake: Oral 540 600 Other: Voiding Method Diaper Diaper Incontinent Incontinent # Voids 4 2 # Bowel Movements 2 1 - Constitutional General appearance: Present: average body habitus, no acute distress - EENT Eyes: Present: anicteric sclerae, EOMI ENT: Present: hearing grossly normal - Respiratory Details: breathing is even and unlabored - Cardiovascular Details: skin warm and dry - Gastrointestinal General gastrointestinal: Present: soft. Absent: tenderness - Integumentary Integumentary: Absent: cyanotic, jaundiced - Psychiatric Psychiatric: Present: A&O x's 3 - Labs CBC & Chem 7: 07/22/24 06:02 07/22/24 02:55 Labs: Abnormal Lab Results - Last 24 Hours (Table) 07/21/24 07/22/24 07/22/24 Range/Units 16:49 02:55 06:02 MCH 25.6 L (27.0-32.0) pg MCHC 30.8 L (32.0-37.0) g/dL RDW 19.1 H (11.5-14.5) % Monocytes # 1.38 H (0.20-1.00) 10*3/uL Eosinophils # 0.51 H (0.04-0.35) 10*3/uL Potassium 3.4 L (3.5-5.1) mmol/L Chloride 110 H (98-107) mmol/L BUN 2 L (7-17) mg/dL Creatinine 0.40 L (0.52-1.04) mg/dL Microbiology - Last 24 Hours (Table) 07/20/24 16:26 Urine Culture - Preliminary Urine,Catheterized Assessment and Plan (1) Infection due to ESBL-producing Klebsiella pneumoniae Current Visit: Yes Status: Acute Code(s): A49.8 - OTHER BACTERIAL INFECTIONS OF UNSPECIFIED SITE; Z16.12 - EXTENDED SPECTRUM BETA LACTAMASE (ESBL) RESISTANCE SNOMED Code(s): 141061148 (2) Eosinophilia Current Visit: Yes Status: Chronic Priority: Medium Code(s): D72.10 - EOSINOPHILIA, UNSPECIFIED SNOMED Code(s): 227340289 Plan: Eosinophilia and rash - Patient currently admitted with abdominal pain. She has multi organism resistant urinary tract infection. She is on antibiotics for the same - Trending white blood cells, platelets and differential it is noted that these numbers have been elevated little more consistently since March of this year, especially during illness. Leukocytosis workup has been ordered. Jak2 and MPL still pending - Rash on the arms and chest. Suspect may be related to patient's antibiotic resistant urinary tract infection. She had it earlier this year when she was being treated for a UTI. Rash presented recently, with recurrent UTI. S/p skin biopsy, path pending. - Continue Benadryl for itching, topicals for skin integrity to reduce the risk of infection -Mild anemia. Workup has been ordered. KORY noted, however due to noted UTI, will hold IV iron. Will schedule outpt transfusions once infection is adequately treated and to follow up on pending workup -Transfuse for hemoglobin less than 7 or if patient is symptomatic
[2024-07-23 04:06] LABS: African American GFR (CKD) >90 (>60 ml/min/1.73 sqM); Anion Gap 4 mmol/L; Blood Urea Nitrogen 7 mg/dL (7-17); Calcium 8.3 mg/dL (8.4-10.2); Carbon Dioxide 30 mmol/L (22-30); Chloride 104 mmol/L (98-107); Glucose 109 mg/dL (74-99); Non-African American GFR(CKD) >90 (>60 ml/min/1.73 sqM); Sodium 138 mmol/L (137-145)
[2024-07-23 04:08] LABS: Potassium 3.8 mmol/L (3.5-5.1)
[2024-07-23 05:48] LABS: Basophils # (A) 0.06 10*3/uL (0.00-0.10); Basophils % (A) 0.5 %; Eosinophils # (A) 0.48 10*3/uL (0.04-0.35); Eosinophils % (A) 3.7 %; HCT 38.4 % (37.2-46.3); HGB 12.1 g/dL (12.0-15.0); Lymphocytes # (A) 3.21 10*3/uL (0.90-5.00); Lymphocytes % (A) 24.7 %; MCH 25.5 pg (27.0-32.0); MCHC 31.5 g/dL (32.0-37.0); Mean Platelet Volume 9.9 fL (9.5-12.2); Monocytes # (A) 1.39 10*3/uL (0.20-1.00); Monocytes % (A) 10.7 %; Neutrophils % (A) 59.4 %; Platelet Count 256 10*3/uL (140-440); RBC 4.74 10*6/uL (4.10-5.20); RDW 18.6 % (11.5-14.5); WBC 12.97 10*3/uL (4.50-10.00)
--- NOTE | 2024-07-23 08:01 | P.PN ---
Subjective Progress Note Date: 07/22/24 Principal diagnosis: Reason for follow-up is complicated UTI Patient is a 64-year-old female with a past medical history significant for TIA depression did have history of left heel infected ulcer with osteomyelitis present to the hospital abdominal pain he did have a abdominal CT concerning for bilateral hydronephrosis hydroureter and question of cystitis with urine culture multiple pathogen prompted this consultation. On today's evaluation that is 07/22/2024, the patient continues to be afebrile, the patient is on 2 L nasal cannula oxygen and breathing comfortably, the Pt denies having any chest pain or cough, the patient denies having any abdominal pain no vomiting or any diarrhea has been reported by the nursing staff. Patient did have a white count of 9.54, creatinine 0.4 0 repeat urine cultures pending Objective - Vital Signs Vital signs: Vital Signs Temp 97.8 F 07/22/24 15:00 Pulse 81 07/22/24 15:00 Resp 17 07/22/24 15:00 BP 146/95 07/22/24 15:00 Pulse Ox 98 07/22/24 15:00 FiO2 Intake & Output 07/21/24 07/22/24 07/22/24 18:59 06:59 18:59 Intake Total 540 1050 Output Total 520 Balance 540 530 Weight 81.647 kg Intake: Oral 540 1050 Output: Urine 520 Straight 520 Other: Voiding Method Diaper Diaper Incontinent Incontinent # Voids 4 2 # Bowel Movements 2 1 - Exam GENERAL DESCRIPTION: An elderly female lying in bed in no distress RESPIRATORY SYSTEM: Unlabored breathing , decreased breath sounds at bases HEART: S1 S2 regular rate and rhythm , ABDOMEN: Soft , no tenderness, patient did have a stage III sacral pressure ulcer wound base looks clean no slough or surrounding redness EXTREMITIES: Left heel stage III ulcer but no slough tissue or surrounding redness - Labs CBC & Chem 7: 07/23/24 03:34 07/23/24 03:34 Labs: Abnormal Lab Results - Last 24 Hours (Table) 07/21/24 07/22/24 07/22/24 Range/Units 16:49 02:55 06:02 MCH 25.6 L (27.0-32.0) pg MCHC 30.8 L (32.0-37.0) g/dL RDW 19.1 H (11.5-14.5) % Monocytes # 1.38 H (0.20-1.00) 10*3/uL Eosinophils # 0.51 H (0.04-0.35) 10*3/uL Potassium 3.4 L (3.5-5.1) mmol/L Chloride 110 H (98-107) mmol/L BUN 2 L (7-17) mg/dL Creatinine 0.40 L (0.52-1.04) mg/dL Microbiology - Last 24 Hours (Table) 07/20/24 16:26 Urine Culture - Preliminary Urine,Catheterized Assessment and Plan (1) Infection due to ESBL-producing Klebsiella pneumoniae Current Visit: Yes Status: Acute Code(s): A49.8 - OTHER BACTERIAL INFECTIONS OF UNSPECIFIED SITE; Z16.12 - EXTENDED SPECTRUM BETA LACTAMASE (ESBL) RESISTANCE SNOMED Code(s): 133521994 (2) Hydronephrosis Current Visit: Yes Status: Acute Code(s): N13.30 - UNSPECIFIED HYDRONEPHROSIS SNOMED Code(s): 99177312 (3) UTI (urinary tract infection) Current Visit: Yes Status: Acute Code(s): N39.0 - URINARY TRACT INFECTION, S ITE NOT SPECIFIED SNOMED Code(s): 62787914 (4) Leukocytosis Current Visit: No Status: Acute Code(s): D72.829 - ELEVATED WHITE BLOOD CELL COUNT, UNSPECIFIED SNOMED Code(s): 272777551 Plan: 1patient presented to hospital with lower abdominal pain she also have significant mental status changes did have elevated white count meeting criteria for symptomatic/complicated UTI with urine culture showing multidrug-resistant pathogen including Pseudomonas he has been Klebsiella and E. coli 2left heel stage III pressure ulcer without cellulitis, patient does have a stage III sacral pressure ulcer, recommend to keep the area of the pressure and treat with a dry Aquacel silver dressing 3patient is afebrile patient white count is normal, repeat urine cultures are pending 4patient to continue with the meropenem while waiting for repeat culture to finalize Dictation was produced using [employer] software. please excuse any grammatical, word or spelling errors. Time with Patient: Less than 30
[2024-07-23] MEDS: MAG HYDROX/AL HYDROX/SIMETH 30 ML CUP PO PRN (10:59)
--- NOTE | 2024-07-23 14:12 | P.PN ---
Subjective Progress Note Date: 07/23/24 SURGICAL PROGRESS NOTE CHIEF COMPLAINT: UTI HISTORY OF PRESENT ILLNESS: Patient status post EGD and colonoscopy on 07/19/2024 reports gastritis and transverse colon polyp. She is also status post punch bi opsy of left arm skin lesion. Pathology result noted transverse colon tubular adenoma. Rectal biopsy slight and focal hyperplasia. Left arm skin biopsy negative for significant and incisional failure or malignancy. Sun damaged skin with minimal epidermal actinic change. Patient with no new complaints. She tolerated diet. Followed by urology and scheduled for urology procedure on . PHYSICAL EXAM: VITAL SIGNS: Reviewed. GENERAL: Well-developed in no acute distress. ABDOMEN: Soft. Nondistended. Mild tenderness across upper abdomen NEUROLOGIC: Alert and oriented. Cranial nerves II through XII grossly intact. ASSESSMENT: 1. Abdominal pain across upper abdomen. Status post EGD and colonoscopy reporting gastritis and transverse colon polyp 2. Left arm skin lesion status post punch biopsy PLAN: - PPI added for gastritis - Continue regular diet - Continue urology workup. Urology procedure on . Physician Electrical Engineering Technician note has been reviewed by physician. Signing provider agrees with the documented findings, assessment, and plan of care. Objective - Vital Signs Vital signs: Vital Signs Temp 98.7 F 07/23/24 07:00 Pulse 79 07/23/24 07:00 Resp 17 07/23/24 07:00 BP 96/69 07/23/24 07:00 Pulse Ox 99 07/23/24 07:00 FiO2 Intake & Output 07/22/24 07/23/24 07/23/24 18:59 06:59 18:59 Intake Total 1050 480 Output Total 520 2640 1300 Balance 530 -2160 -1300 Weight 81.647 kg Intake: Oral 1050 480 Output: Urine 520 2640 1300 Straight 520 Uretheral (Llanes) 490 Other: Voiding Method Diaper Indwelling Catheter Incontinent # Voids 2 # Bowel Movements 1 1 - Labs CBC & Chem 7: 07/23/24 03:34 07/23/24 03:34 Labs: Abnormal Lab Results - Last 24 Hours (Table) 07/23/24 07/23/24 Range/Units 03:34 03:34 WBC 12.97 H (4.50-10.00) 10*3/uL MCH 25.5 L (27.0-32.0) pg MCHC 31.5 L (32.0-37.0) g/dL RDW 18.6 H (11.5-14.5) % Immature Gran # 0.13 H (0.00-0.04) 10*3/uL Monocytes # 1.39 H (0.20-1.00) 10*3/uL Eosinophils # 0.48 H (0.04-0.35) 10*3/uL Creatinine 0.37 L (0.52-1.04) mg/dL Glucose 109 H (74-99) mg/dL Calcium 8.3 L (8.4-10.2) mg/dL Microbiology - Last 24 Hours (Table) 07/20/24 16:26 Urine Culture - Final Urine,Catheterized Enterococcus faecium VRE
[2024-07-23] MEDS: PANTOPRAZOLE 40 MG TABLET PO SCH (14:22)
[2024-07-23] MEDS: BARIUM SULFATE 2% - 450 ML ORAL.SUSP BOTTLE PO PRN (15:00)
--- NOTE | 2024-07-23 15:19 | PN ---
PROGRESS NOTE DATE OF SERVICE: 07/23/2024 SUBJECTIVE: This is a 64-year-old woman, who was admitted with UTI, also hydronephrosis and abdominal pain. The patient has severe eosinophilia. The patient is complaining of persistent abdominal pain. Repeat CAT scan has been ordered. The recent urine culture showed VRE. PAST MEDICAL HISTORY: Reviewed. REVIEW OF SYSTEMS: Fourteen-point review of systems negative except as mentioned earlier. CURRENT MEDICATIONS: Reviewed. PHYSICAL EXAMINATION: VITAL SIGNS: Pulse is 79, blood pressure 90/67, and respirations 17. HEENT: Conjunctivae normal. NECK: No JVD. RESPIRATIONS: Breath sounds diminished at the bases. A few scattered rhonchi. ABDOMEN: Soft, mild diffuse tenderness. LABORATORY DATA: WBC 12.7. ASSESSMENT: 1. Extended spectrum beta lactamase Klebsiella urinary tract infection. 2. Bilateral hydronephrosis with abdominal pain. 3. Severe eosinophilia, longstanding with monocytosis, acute on chronic. 4. Skin rash, possibly allergic. 5. Sacral pressure injury. 6. Chronic hydronephrosis with bladder wall thickening. 7. Multiple complex medical issues. 8. No evidence of colovesical fistula as of now per the reports. RECOMMENDATIONS: Recommend to continue current management and continue symptomatic treatment. I recommend repeat labs and also CT scan of the abdomen and pelvis. Prognosis extremely guarded. Closely follow with multiple consultants and further recommendations to follow. MMODL / IJN: [id number] /
--- NOTE | 2024-07-23 16:01 | P.PN ---
Subjective Progress Note Date: 07/23/24 Principal diagnosis: Reason for follow-up is complicated UTI Patient is a 64-year-old female with a past medical history significant for TIA depression did have history of left heel infected ulcer with osteomyelitis present to the hospital abdominal pain he did have a abdominal CT concerning for bilateral hydronephrosis hydroureter and question of cystitis with urine culture multiple pathogen prompted this consultation. On today's evaluation that is 07/23/2024, Patient is afebrile patient is currently on room air and denies having any shortness of breath, the patient denies any chest pain or cough, the patient denies any nausea vomiting or has been complaining of mostly left-sided abdominal pain no diarrhea. Patient white count is up to 12.97 creatinine 0.37 urine with VRE Objective - Vital Signs Vital signs: Vital Signs Temp 98.7 F 07/23/24 07:00 Pulse 79 07/23/24 07:00 Resp 17 07/23/24 07:00 BP 96/69 07/23/24 07:00 Pulse Ox 99 07/23/24 07:00 FiO2 Intake & Output 07/22/24 07/23/24 07/23/24 18:59 06:59 18:59 Intake Total 1050 480 Output Total 520 2640 1300 Balance 530 -2160 -1300 Weight 81.647 kg Intake: Oral 1050 480 Output: Urine 520 2640 1300 Straight 520 Uretheral (Llanes) 490 Other: Voiding Method Diaper Indwelling Catheter Indwelling Catheter Incontinent # Voids 2 # Bowel Movements 1 1 - Exam GENERAL DESCRIPTION: An elderly female lying in bed in no distress RESPIRATORY SYSTEM: Unlabored breathing , decreased breath sounds at bases HEART: S1 S2 regular rate and rhythm , ABDOMEN: Soft , no tenderness, patient did have a stage III sacral pressure ulcer wound base looks clean no slough or surrounding redness EXTREMITIES: Left heel stage III ulcer but no slough tissue or surrounding redness - Labs CBC & Chem 7: 07/23/24 03:34 07/23/24 03:34 Labs: Abnormal Lab Results - Last 24 Hours (Table) 07/23/24 07/23/24 Range/Units 03:34 03:34 WBC 12.97 H (4.50-10.00) 10*3/uL MCH 25.5 L (27.0-32.0) pg MCHC 31.5 L (32.0-37.0) g/dL RDW 18.6 H (11.5-14.5) % Immature Gran # 0.13 H (0.00-0.04) 10*3/uL Monocytes # 1.39 H (0.20-1.00) 10*3/uL Eosinophils # 0.48 H (0.04-0.35) 10*3/uL Creatinine 0.37 L (0.52-1.04) mg/dL Glucose 109 H (74-99) mg/dL Calcium 8.3 L (8.4-10.2) mg/dL Microbiology - Last 24 Hours (Table) 07/20/24 16:26 Urine Culture - Final Urine,Catheterized Enterococcus faecium VRE Assessment and Plan (1) Infection due to ESBL-producing Klebsiella pneumoniae Current Visit: Yes Status: Acute Code(s): A49.8 - OTHER BACTERIAL INFECTIONS OF UNSPECIFIED SITE; Z16.12 - EXTENDED SPECTRUM BETA LACTAMASE (ESBL) RESISTANCE SNOMED Code(s): 340135577 (2) Hydronephrosis Current Visit: Yes Status: Acute Code(s): N13.30 - UNSPECIFIED HYDRONEPHROSIS SNOMED Code(s): 46889580 (3) UTI (urinary tract infection) Current Visit: Yes Status: Acute Code(s): N39.0 - URINARY TRACT INFECTION, SITE NOT SPECIFIED SNOMED Code(s): 90432116 (4) Leukocytosis Current Visit: No Status: Acute Code(s): D72.829 - ELEVATED WHITE BLOOD CELL COUNT, UNSPECIFIED SNOMED Code(s): 003600856 Plan: 1patient presented to hospital with lower abdominal pain she also have significant mental status changes did have elevated white count meeting criteria for symptomatic/complicated UTI with urine culture showing multidrug-resistant pathogen including Pseudomonas he has been Klebsiella and E. coli 2left heel stage III pressure ulcer without cellulitis, patient does have a stage III sacral pressure ulcer, recommend to keep the area of the pressure and treat with a dry Aquacel silver dressing 3patient is afebrile patient white count is slightly up repeat urine is growing VRE 4-patient antibiotic has been adjusted to daptomycin CT abdominal pelvis discussed with admitting team for her abdominal pain and tenderness results will be followed Dictation was produced using [employer] dictation software. please excuse any grammatical, word or spelling errors. Time with Patient: Less than 30
[2024-07-23] MEDS: methylPREDNISolone SOD SUCCI 125 MG/2 ML VIAL IV STA (17:21)
[2024-07-23] MEDS: diphenhydrAMINE 50 MG/ML 1 ML VIAL IVP STA (18:57)
[2024-07-23] MEDS: FAMOTIDINE 20 MG/2 ML VIAL IV STA (18:58)
--- NOTE | 2024-07-23 20:20 | CT ---
EXAMINATION TYPE: CT abdomen pelvis w con CT DLP: 1585.8 mGycm, Automated exposure control for dose reduction was used. DATE OF EXAM: 07/23/2024 7:57 PM COMPARISON: CT cystogram 07/19/2024, CT abdomen and pelvis 07/16/2024 CLINICAL INDICATION:Female, 64 years old with history of Severe abdominal pain and tenderness; abdomi nal pain and tenderness, redicat given, premeds given TECHNIQUE: Standard CT of the abdomen and pelvis following the administration of 100 cc of Isovue 3 00 IV contrast material and oral contrast. Coronal and sagittal reformats were performed. FINDINGS: LOWER CHEST: Small bilateral pleural effusions with associated atelectasis. Redemonstration of a righ t medial lower lobe consolidative opacity. Coronary arterial calcifications. ABDOMEN LIVER: Unremarkable. GALLBLADDER AND BILE DUCTS: The gallbladder is surgically absent. No biliary duct dilatation. PANCREAS: Unremarkable. SPLEEN: Unremarkable. ADRENAL GLANDS: Unremarkable. KIDNEYS AND URETERS: Improvement of previously demonstrated bilateral hydronephrosis from prior exam. Approximately 3 nonobstructing right renal calculi with largest measurement of 5 mm. Again Approxima tely 4 nonobstructing left renal calculi the largest measuring up to 4 mm again. Bilateral cortical c ysts are demonstrated. No follow-up recommended. Contrast is demonstrated within both collecting syst ems and proximal ureters on the delayed phase. PELVIS BLADDER: Nondistended with Llanes catheter in place. Circumferential wall thickening without surroundi ng fat stranding measuring up to 1 cm. REPRODUCTIVE: The uterus is surgically absent. ABDOMEN & PELVIS STOMACH AND BOWEL: Stomach is unremarkable. There is a lipoma identified within the proximal duodenum measuring at least 1.6 cm. Mild amount of stool is present throughout the colon. The appendix is wit hin normal limits. Enteric contrast reaches the distal small bowel. No focal bowel wall thickening or surrounding inflammatory changes. No evidence of bowel obstruction. PERITONEUM: No evidence of pneumoperitoneum or free fluid. VASCULATURE: Mild to moderate atherosclerotic calcifications are present throughout the abdominal aor ta and its branches. No evidence of aortic aneurysm. MUSCULOSKELETAL: No acute osseous abnormalities. Extensive surgical fusion hardware of the visualized thoracolumbar spine. This creates streak artifact which limits evaluation. Laminectomy changes at L4 -S1. Grade 1 anterolisthesis of L3 on L4 without pars defects. Remote fracture of the T8 vertebral bunny dy. LYMPH NODES: No evidence for lymphadenopathy. SOFT TISSUE/ABDOMINAL WALL: Small fat filled umbilical hernia. Sacral decubitus ulcer identified with stranding in gas. No evidence for osteomyelitis or gas fluid collection. IMPRESSION: 1. Improvement of previously demonstrated bilateral hydronephrosis. 2. Nonobstructive bilateral renal calculi redemonstrated. 3. Decompressed urinary bladder with Llanes catheter in place. Circumferential ventral wall thickening or bladder likely related to decompression versus cystitis. Correlate with urinalysis. 4. Sacral decubitus ulcer identified with stranding in gas. No evidence for osteomyelitis or gas flui d collection. 5. Small bilateral pleural effusions with right medial lower lobe consolidation redemonstrated. [facility], , 07/23/2024 8:18 PM
[2024-07-24 08:17] LABS: Basophils # (A) 0.01 X 10*3/uL (0.00-0.10); Basophils % (A) 0.1 %; Eosinophils # (A) 0 X 10*3/uL (0.04-0.35); Eosinophils % (A) 0 %; HCT 38.9 % (37.2-46.3); HGB 11.8 g/dL (12.0-15.0); Lymphocytes # (A) 1.56 X 10*3/uL (0.90-5.00); Lymphocytes % (A) 17.2 %; MCH 24.9 pg (27.0-32.0); MCHC 30.3 g/dL (32.0-37.0); MCV 82.2 FL (80.0-97.0); Monocytes # (A) 0.14 X 10*3/uL (0.20-1.00); Monocytes % (A) 1.5 %; NRBC Per 100 WBC 0 X 10*3/uL (0.00-0.01); Neutrophils # (A) 7.32 X 10*3/uL (1.80-7.70); Neutrophils % (A) 80.9 %; Platelet Count 623 X 10*3/uL (140-440); RBC 4.73 X 10*6/uL (4.10-5.20); RDW 18.4 % (11.5-14.5); WBC 9.06 X 10*3/uL (4.50-10.00)
[2024-07-24 09:38] LABS: ALT 19 U/L (8-44); AST 34 U/L (13-35); Albumin 2.7 g/dL (3.8-4.9); Albumin/Globulin Ratio 0.73 Ratio (1.60-3.17); Alkaline Phosphatase 109 U/L (41-126); Blood Urea Nitrogen 5.8 mg/dL (9.0-27.0); Calcium 8.2 mg/dL (8.7-10.3); Carbon Dioxide 25.7 mmol/L (21.6-31.8); Chloride 100 mmol/L (96-109); Globulin 3.7 g/dL (1.6-3.3); Glucose 216 mg/dL (70-110); Potassium 2.9 mmol/L (3.5-5.5); Sodium 139 mmol/L (135-145); Total Bilirubin 0.2 mg/dL (0.3-1.2); Total Protein 6.4 g/dL (6.2-8.2)
--- NOTE | 2024-07-24 09:49 | P.PN ---
Progress Note - Text Progress Note Date: 07/24/24 The patients hydro resolved with a ng catheter. therefore we will cancel the cysto with retrogrades as the cause of the hydro is probably reflux of urine into the left ureter. Dr Espinoza will follow as an outpatient.
[2024-07-24] MEDS ORDERED: Potassium Replacement Protocol 1 EACH MISC MISCELLANE PRN (10:21)
[2024-07-24] MEDS: POTASSIUM CHLORIDE ER 20 MEQ TAB.ER PO SCH (10:42)
--- NOTE | 2024-07-24 12:31 | P.PN ---
Subjective Progress Note Date: 07/24/24 SURGICAL PROGRESS NOTE CHIEF COMPLAINT: UTI HISTORY OF PRESENT ILLNESS: Patient status post EGD and colonoscopy on 07/19/2024 reports gastritis and transverse colon polyp. She is also status post punch bi opsy of left arm skin lesion. Pathology result noted transverse colon tubular adenoma. Rectal biopsy slight and focal hyperplasia. Left arm skin biopsy negative for significant eosinophilia or malignancy. Sun damaged skin with minimal epidermal actinic change. Patient with no new complaints. She tolerated diet. Patient had CT scan yesterday with improvement hydronephrosis. Urology reported for patient to follow-up outpatient. Afebrile. WBC 7.86 hemoglobin 14 PHYSICAL EXAM: VITAL SIGNS: Reviewed. GENERAL: Well-developed in no acute distress. ABDOMEN: Soft. Nondistended. NEUROLOGIC: Alert and oriented. Cranial nerves II through XII grossly intact. ASSESSMENT: 1. Abdominal pain across upper abdomen. Status post EGD and colonoscopy reporting gastritis and transverse colon polyp 2. Left arm skin lesion status post punch biopsy PLAN: - Continue PPI - Continue regular diet Physician Nursery Technician note has been reviewed by physician. Signing provider agrees with the documented findings, assessment, and plan of care. Objective - Vital Signs Vital signs: Vital Signs Temp 97.4 F L 07/24/24 07:21 Pulse 90 07/24/24 07:21 Resp 15 07/24/24 07:21 BP 152/83 07/24/24 07:21 Pulse Ox 91 L 07/24/24 07:21 FiO2 Intake & Output 07/23/24 07/24/24 07/24/24 18:59 06:59 18:59 Intake Total 750 Output Total 1950 2600 1800 Balance -1949 -1849 -1799 Intake: Oral 750 Output: Urine 1950 2600 1800 Uretheral (Llanes) 1800 Other: Voiding Method Indwelling Catheter Indwelling Catheter Indwelling Catheter # Bowel Movements 1 - Labs CBC & Chem 7: 07/24/24 04:12 07/24/24 04:12 Labs: Abnormal Lab Results - Last 24 Hours (Table) 07/24/24 07/24/24 Range/Units 04:12 04:12 Hgb 11.8 L (12.0-15.0) g/dL MCH 24.9 L (27.0-32.0) pg MCHC 30.3 L (32.0-37.0) g/dL RDW 18.4 H (11.5-14.5) % Plt Count 623 H (140-440) X 10*3/uL Monocytes # 0.14 L (0.20-1.00) X 10*3/uL Eosinophils # 0 L (0.04-0.35) X 10*3/uL Potassium 2.9 L (3.5-5.5) mmol/L Anion Gap 13.30 H (4.00-12.00) mmol/L BUN 5.8 L (9.0-27.0) mg/dL Creatinine 0.5 L (0.6-1.5) mg/dL BUN/Creatinine Ratio 11.60 L (12.00-20.00) Ratio Glucose 216 H (70-110) mg/dL Calcium 8.2 L (8.7-10.3) mg/dL Total Bilirubin 0.2 L (0.3-1.2) mg/dL Albumin 2.7 L (3.8-4.9) g/dL Globulin 3.7 H (1.6-3.3) g/dL Albumin/Globulin Ratio 0.73 L (1.60-3.17) Ratio
--- NOTE | 2024-07-25 09:58 | P.PN ---
Subjective Progress Note Date: 07/25/24 This is a 64-year-old female who has been here for quite some time continues to report significant abdominal pain being followed by multiple consultations initially admitted for UTI with hydronephrosis and severe eosinophilia. Patient continues to have persistent abdominal pain and repeat CAT scan was performed. Patient's urine culture repeat is now showing VRE with infectious disease following. Urology has been following regarding hydronephrosis and discussing possible cystoscopy with retrograde although is canceling as hydronephrosis has improved with an indwelling Llanes catheter and recommend to continue with antibiotics per ID recommendations along with continued indwelling Llanes catheter. Patient is continued on antibiotics in the form of daptomycin with infectious disease following closely. Potassium low at 2.9 and will replace per protocol and follow-up on repeat labs. Review of systems: Constitutional: No reports of fatigue, fever, or chills Cardiovascular: No reports of chest pain or palpitations Respiratory: No reports of shortness of breath or cough GI: reports of nausea, no reports of vomiting, patient is having bowel movements, continues to report severe upper abdominal pain : No reports of dysuria, continued on indwelling Llanes catheter Neurovascular: reports of generalized weakness All medications have been reviewed Active Medications Acetaminophen (Acetaminophen Tab 500 Mg Tab) 500 mg PO Q6H PRN PRN Reason: Mild Pain Last Admin: 07/22/24 23:16 Dose: 500 mg Al Hydroxide/Mg Hydroxide (Mag Hydrox/Al Hydrox/Simeth 30 Ml Cup) 30 ml PO Q6H PRN PRN Reason: GI Upset Last Admin: 07/23/24 10:59 Dose: 30 ml Alprazolam (Alprazolam 0.5 Mg Tab) 0.5 mg PO TID PRN PRN Reason: Anxiety Last Admin: 07/24/24 23:58 Dose: 0.5 mg Calamine (Calamine/Zinc Oxide Lotion 177 Ml Btl) 1 applic TOPICAL BID PRN; Protocol PRN Reason: Skin Irritation Cyclobenzaprine HCl (Cyclobenzaprine 5 Mg Tab) 5 mg PO BID@0900,1200 PRN PRN Reason: Muscle Spasm Last Admin: 07/23/24 12:51 Dose: 5 mg Diphenhydramine HCl (Diphenhydramine 25 Mg Cap) 25 mg PO Q8HR PRN PRN Reason: Itching Last Admin: 07/21/24 07:29 Dose: 25 mg Duloxetine HCl (Duloxetine Hcl 60 Mg Capsule.Dr) 60 mg PO BID [facility], [facility] Last Admin: 07/24/24 20:53 Dose: 60 mg Enoxaparin Sodium (Enoxaparin 40 Mg/0.4 Ml Syringe) 40 mg SQ DAILY FOR[facility], [facility]1983 Last Admin: 07/24/24 08:12 Dose: 40 mg Hydromorphone HCl (Hydromorphone 0.5 Mg/0.5 Ml Syringe) 0.5 mg IVP Q6HR PRN PRN Reason: Severe Pain (Scale 7 to 10) Last Admin: 07/24/24 23:12 Dose: 0.5 mg Sodium Chloride (Saline 0.9%) 1,000 mls @ 75 mls/hr IV .[id number] [facility], [facility] Last Admin: 07/24/24 14:19 Dose: 75 mls/hr Daptomycin 250 mg/ Sodium (Chloride) 50 mls @ 100 mls/hr IVPB Q24HR [facility], [facility]; Protocol Last Admin: 07/24/24 08:22 Dose: 100 mls/hr Lactated Ringer's (Lactated Ringers) 1,000 mls @ 20 mls/hr IV .Q24H [facility], [facility] Methocarbamol (Methocarbamol 750 Mg Tab) 750 mg PO QID PRN PRN Reason: Muscle Spasm Last Admin: 07/21/24 23:48 Dose: 750 mg Miscellaneous Information (Potassium Replacement Protocol 1 Each Misc) 1 each MISCELLANE DAILY PRN; Protocol PRN Reason: Per Protocol Miscellaneous Information (Potassium Replacement Protocol 1 Each Misc) 1 each MISCELLANE DAILY PRN; Protocol PRN Reason: Per Protocol Morphine Sulfate (Morphine Sulfate Ir 15 Mg Tablet) 15 mg PO Q6HR PRN PRN Reason: Pain Last Admin: 07/24/24 20:53 Dose: 15 mg Naloxone HCl (Naloxone 0.4 Mg/Ml 1 Ml Vial) 0.2 mg IV Q2M PRN PRN Reason: Opioid Reversal Nicotine (Nicotine 14mg/24hr Patch) 1 patch TRANSDERM DAILY [facility], [facility] Last Admin: 07/24/24 08:12 Dose: 1 patch Buprenorphine [ Butrans 7.5 Mcg/Hr] 7.5 Mcg/Hour Patch 1 each TRANSDERM FR [facility], [facility] Last Admin: 07/19/24 12:31 Dose: Not Given Nystatin (Nystatin 100,000 Unit/Gm Powd 15 Gm) 1 applic TOPICAL BID [facility], [facility]; Protocol Last Admin: 07/24/24 20:53 Dose: 1 applic Ondansetron HCl (Ondansetron 4 Mg/2 Ml Vial) 4 mg IVP Q6HR PRN PRN Reason: Nausea And Vomiting Last Admin: 07/17/24 22:08 Dose: 4 mg Pantoprazole Sodium (Pantoprazole 40 Mg Tablet) 40 mg PO AC-BRKFST [facility], [facility] Last Admin: 07/24/24 06:51 Dose: 40 mg Petrolatum (Zinc Oxide Paste (Z-Guard) 1 Applic) 1 applic TOPICAL Q2HR PRN; Protocol PRN Reason: Wound Healing Polyethylene Glycol (Polyethylene Glycol 3350 17 Gm Powd.Pack) 17 gm PO MOWEFR@2100 [facility], [facility] Last Admin: 07/24/24 21:05 Dose: Not Given Senna/Docusate Sodium (Sennosides-Docusate Sodium 1 Each Tab) 1 each PO DAILY [facility] Last Admin: 07/24/24 08:12 Dose: 1 each Tetrahydrozoline HCl (Tetrahydrozoline 0.05% Ophth Drops 15 Ml Btl) 1 drops B OTH EYES QID PRN PRN Reason: ALLERGIES PHYSICAL EXAMINATION: GENERAL: The patient is alert and oriented x4, Well developed, well nourished. Elderly appearing, obese HEENT: Pupils are round and equally reacting to light. EOMI. no scleral icterus. No conjunctival pallor. Normocephalic, atraumatic. No pharyngeal erythema. No thyromegaly. CARDIOVASCULAR: S1 and S2 muffled PULMONARY: diminished breath sounds bilaterally with no wheezing or rhonchi noted. ABDOMEN: soft. tender on exam in the mid and upper epigastric region and bilateral left and right quadrants. obese. non-distended, normoactive bowel sounds. No palpable organomegaly. MUSCULOSKELETAL: No joint swelling or deformity. EXTREMITIES: No cyanosis, clubbing, or pedal edema. NEUROLOGICAL: Gross neurological examination did not reveal any focal deficits. Diffuse weakness SKIN: No rashes. 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 Urology has reevaluated the patient recommending to continue with indwelling Llanes catheter and no surgical intervention at this time as hydronephrosis has resolved. Patient continues to report significant upper abdominal pain and repeat CT was done showing circumferential wall thickening without surrounding fat stranding measuring up to 1 cm of the bladder uterus is absent, improvement in previously demonstrated bilateral hydronephrosis with nonobstructive bilateral renal calculi redemonstrated, sacral decubitus ulcer identified with stranding and gas with no evidence of osteomyelitis or gas fluid collection with small bilateral pleural effusions with right medial lower lobe consolidation redemonstrated Discussion was had of possible transfer for possible tertiary care as patient is not improving. Patient does not want to transfer and she would like to talk further with her daughter regarding this. [facility] was contacted and will need to be under medical review Due to multiple complex medical issues, overall prognosis is guarded The impression and plan of care has been dictated by [place] nurse pract itioner as directed. Dr. Emile MD I have performed a history and examination and MDM of this patient, discussed the same with the dictator, and agree with the dictator's assessment and plan as written ,documented as a scribe. Based on total visit time, I have performed more than 50% of the visit. Any additional findings or plans will be noted. Objective - Vital Signs Vital signs: Vital Signs Temp 97.7 F 07/25/24 07:45 Pulse 72 07/25/24 07:45 Resp 18 07/25/24 07:45 BP 110/64 07/25/24 07:45 Pulse Ox 92 L 07/25/24 07:45 FiO2 Intake & Output 07/24/24 07/25/24 07/25/24 18:59 06:59 18:59 Intake Total 1420 660 Output Total 3600 1300 Balance -2180 -640 Intake: Intake, IV Titration 700 Amount DAPTOmycin 250 mg In 100 Sodium Chloride 0.9% 50 ml @ 100 mls/hr IVPB Q24HR [facility], [facility] Rx#:[id number] Sodium Chloride 0.9% 1, 600 000 ml @ 75 mls/hr IV . [id number] [facility], [facility] Rx#:[id number] Oral 720 660 Output: Urine 3600 1300 Uretheral (Llanes) 2800 Other: Voiding Method Indwelling Catheter Indwelling Catheter # Bowel Movements 1 - Labs CBC & Chem 7: 07/24/24 04:12 07/25/24 07:31 Labs: Abnormal Lab Results - Last 24 Hours (Table) 07/24/24 Range/Units 04:12 Potassium 2.9 L (3.5-5.5) mmol/L Anion Gap 13.30 H (4.00-12.00) mmol/L BUN 5.8 L (9.0-27.0) mg/dL Creatinine 0.5 L (0.6-1.5) mg/dL BUN/Creatinine Ratio 11.60 L (12.00-20.00) Ratio Glucose 216 H (70-110) mg/dL Calcium 8.2 L (8.7-10.3) mg/dL Total Bilirubin 0.2 L (0.3-1.2) mg/dL Albumin 2.7 L (3.8-4.9) g/dL Globulin 3.7 H (1.6-3.3) g/dL Albumin/Globulin Ratio 0.73 L (1.60-3.17) Ratio
[2024-07-25] MEDS: LACTATED RINGERS 1,000 ML IV SCH (10:28)
--- NOTE | 2024-07-25 13:45 | P.PN ---
Subjective Progress Note Date: 07/25/24 SURGICAL PROGRESS NOTE CHIEF COMPLAINT: UTI HISTORY OF PRESENT ILLNESS: Patient status post EGD and colonoscopy on 07/19/2024 reports gastritis and transverse colon polyp. She is also status post punch bi opsy of left arm skin lesion. Pathology result noted transverse colon tubular adenoma. Rectal biopsy slight and focal hyperplasia. Left arm skin biopsy negative for significant eosinophilia or malignancy. Sun damaged skin with minimal epidermal actinic change. Patient denies any abdominal pain. Tolerating diet. Afebrile. Potassium 3.9. PHYSICAL EXAM: VITAL SIGNS: Reviewed. GENERAL: Well-developed in no acute distress. ABDOMEN: Soft. Nondistended. NEUROLOGIC: Alert and oriented. Cranial nerves II through XII grossly intact. ASSESSMENT: 1. Abdominal pain across upper abdomen. Status post EGD and colonoscopy reporting gastritis and transverse colon polyp 2. Left arm skin lesion status post punch biopsy PLAN: - Continue PPI - Continue regular diet - Okay to discharge from surgical standpoint when medically cleared Physician Animal Attendants And Trainers note has been reviewed by physician. Signing provider agrees with the documented findings, assessment, and plan of care. Objective - Vital Signs Vital signs: Vital Signs Temp 97.7 F 07/25/24 07:45 Pulse 72 07/25/24 07:45 Resp 18 07/25/24 07:45 BP 110/64 07/25/24 07:45 Pulse Ox 92 L 07/25/24 07:45 FiO2 Intake & Output 07/24/24 07/25/24 07/25/24 18:59 06:59 18:59 Intake Total 1420 660 Output Total 3600 1300 1100 Balance -2180 -640 -1100 Weight 81.647 kg Intake: Intake, IV Titration 700 Amount DAPTOmycin 250 mg In 100 Sodium Chloride 0.9% 50 ml @ 100 mls/hr IVPB Q24HR [facility] Rx#:[id number] Sodium Chloride 0.9% 1, 600 000 ml @ 75 mls/hr IV . [id number] [facility] Rx#:[id number] Oral 720 660 Output: Urine 3600 1300 1100 Uretheral (Llanes) 2800 Other: Voiding Method Indwelling Catheter Indwelling Catheter Indwelling Catheter # Bowel Movements 1 1 - Labs CBC & Chem 7: 07/24/24 04:12 07/25/24 07:31
--- NOTE | 2024-07-25 15:03 | P.PN ---
Subjective Progress Note Date: 07/24/24 Principal diagnosis: Reason for follow-up is complicated UTI Patient is a 64-year-old female with a past medical history significant for TIA depression did have history of left heel infected ulcer with osteomyelitis present to the hospital abdominal pain he did have a abdominal CT concerning for bilateral hydronephrosis hydroureter and question of cystitis with urine culture multiple pathogen prompted this consultation. On today's evaluation that is 07/24/2024, patient has been afebrile, patient is breathing comfortably and is currently on room air, patient denies having any chest pain and cough, patient denies nausea vomiting or diarrhea and abdominal pain has decreased in intensity. Patient white count normalized to 9.06, creatinine 0.[address] improvement with the previously demonstrated bilateral hydronephrosis Objective - Vital Signs Vital signs: Vital Signs Temp 98.2 F 07/24/24 19:24 Pulse 97 07/24/24 19:24 Resp 18 07/24/24 19:24 BP 143/88 07/24/24 19:24 Pulse Ox 95 07/24/24 19:24 FiO2 Intake & Output 07/24/24 07/24/24 07/25/24 06:59 18:59 06:59 Intake Total 750 1420 Output Total 2600 3600 Balance -1850 -2180 Intake: Intake, IV Titration 700 Amount DAPTOmycin 250 mg In 100 Sodium Chloride 0.9% 50 ml @ 100 mls/hr IVPB Q24HR [facility] Rx#:[id number] Sodium Chloride 0.9% 1, 600 000 ml @ 75 mls/hr IV . [id number] [facility] Rx#:[id number] Oral 750 720 Output: Urine 2600 3600 Uretheral (Llanes) 2800 Other: Voiding Method Indwelling Catheter Indwelling Catheter # Bowel Movements 1 - Exam GENERAL DESCRIPTION: An elderly female lying in bed in no distress RESPIRATORY SYSTEM: Unlabored breathing , decreased breath sounds at bases HEART: S1 S2 regular rate and rhythm , ABDOMEN: Soft , no tenderness, patient did have a stage III sacral pressure ulcer wound base looks clean no slough or surrounding redness EXTREMITIES: Left heel stage III ulcer but no slough tissue or surrounding redness - Labs CBC & Chem 7: 07/24/24 04:12 07/25/24 07:31 Labs: Abnormal Lab Results - Last 24 Hours (Table) 07/24/24 07/24/24 Range/Units 04:12 04:12 Hgb 11.8 L (12.0-15.0) g/dL MCH 24.9 L (27.0-32.0) pg MCHC 30.3 L (32.0-37.0) g/dL RDW 18.4 H (11.5-14.5) % Plt Count 623 H (140-440) X 10*3/uL Monocytes # 0.14 L (0.20-1.00) X 10*3/uL Eosinophils # 0 L (0.04-0.35) X 10*3/uL Potassium 2.9 L (3.5-5.5) mmol/L Anion Gap 13.30 H (4.00-12.00) mmol/L BUN 5.8 L (9.0-27.0) mg/dL Creatinine 0.5 L (0.6-1.5) mg/dL BUN/Creatinine Ratio 11.60 L (12.00-20.00) Ratio Glucose 216 H (70-110) mg/dL Calcium 8.2 L (8.7-10.3) mg/dL Total Bilirubin 0.2 L (0.3-1.2) mg/dL Albumin 2.7 L (3.8-4.9) g/dL Globulin 3.7 H (1.6-3.3) g/dL Albumin/Globulin Ratio 0.73 L (1.60-3.17) Ratio Assessment and Plan (1) Infection due to ESBL-producing Klebsiella pneumoniae Current Visit: Yes Status: Acute Code(s): A49.8 - OTHER BACTERIAL INFECTIONS OF UNSPECIFIED SITE; Z16.12 - EXTENDED SPECTRUM BETA LACTAMASE (ESBL) RESISTANCE SNOMED Code(s): 754414088 (2) Hydronephrosis Current Visit: Yes Status: Acute Code(s): N13.30 - UNSPECIFIED HYDRONEPHROSIS SNOMED Code(s): 70921758 (3) UTI (urinary tract infection) Current Visit: Yes Status: Acute Code(s): N39.0 - URINARY TRACT INFECTION, SITE NOT SPECIFIED SNOMED Code(s): 28015552 (4) Leukocytosis Current Visit: No Status: Acute Code(s): D72.829 - ELEVATED WHITE BLOOD CELL COUNT, UNSPECIFIED SNOMED Code(s): 054739551 Plan: 1patient presented to hospital with lower abdominal pain she also have significant mental status changes did have elevated white count meeting criteria for symptomatic/complicated UTI with urine culture showing multidrug-resistant pathogen including Pseudomonas he has been Klebsiella and E. coli 2left heel stage III pressure ulcer without cellulitis, patient does have a stage III sacral pressure ulcer, recommend to keep the area of the pressure and treat with a dry Aquacel silver dressing 3patient is afebrile patient white count has normalized urine is growing VRE, CT abdominal pelvis with improving bilateral hydronephrosis no other acute findings reported 4-patient to continue with daptomycin and monitor clinical course closely Dictation was produced using [employer] dictation software. please excuse any grammatical, word or spelling errors.
--- NOTE | 2024-07-25 15:04 | P.PN ---
Subjective Progress Note Date: 07/25/24 Principal diagnosis: Reason for follow-up is complicated UTI Patient is a 64-year-old female with a past medical history significant for TIA depression did have history of left heel infected ulcer with osteomyelitis present to the hospital abdominal pain he did have a abdominal CT concerning for bilateral hydronephrosis hydroureter and question of cystitis with urine culture multiple pathogen prompted this consultation. On today's evaluation that is 07/25/2024, Patient is afebrile this morning patient denies having any chest pain shortness of breath or cough, the patient is currently on room air, patient abdominal pain has decreased intensity no nausea vomiting or diarrhea has been reported. Patient did have potassium of 3.9 no CBC was done today Objective - Vital Signs Vital signs: Vital Signs Temp 97.8 F 07/25/24 14:07 Pulse 78 07/25/24 14:07 Resp 18 07/25/24 14:07 BP 135/87 07/25/24 14:07 Pulse Ox 92 L 07/25/24 14:07 FiO2 Intake & Output 07/24/24 07/25/24 07/25/24 18:59 06:59 18:59 Intake Total 1420 660 Output Total 3600 1300 2200 Balance -2180 -640 -2200 Weight 81.647 kg Intake: Intake, IV Titration 700 Amount DAPTOmycin 250 mg In 100 Sodium Chloride 0.9% 50 ml @ 100 mls/hr IVPB Q24HR [facility] Rx#:[id number] Sodium Chloride 0.9% 1, 600 000 ml @ 75 mls/hr IV . [id number] [facility] Rx#:[id number] Oral 720 660 Output: Urine 3600 1300 2200 Uretheral (Llanes) 2800 Other: Voiding Method Indwelling Catheter Indwelling Catheter Indwelling Catheter # Bowel Movements 1 1 - Exam GENERAL DESCRIPTION: An elderly female lying in bed in no distress RESPIRATORY SYSTEM: Unlabored breathing , decreased breath sounds at bases HEART: S1 S2 regular rate and rhythm , ABDOMEN: Soft , no tenderness, patient did have a stage III sacral pressure ulcer wound base looks clean no slough or surrounding redness EXTREMITIES: Left heel stage III ulcer but no slough tissue or surrounding redness - Labs CBC & Chem 7: 07/24/24 04:12 07/25/24 07:31 Assessment and Plan (1) Infection due to ESBL-producing Klebsiella pneumoniae Current Visit: Yes Status: Acute Code(s): A49.8 - OTHER BACTERIAL INFECTIONS OF UNSPECIFIED SITE; Z16.12 - EXTENDED SPECTRUM BETA LACTAMASE (ESBL) RESISTANCE SNOMED Code(s): 125257686 (2) Hydronephrosis Current Visit: Yes Status: Acute Code(s): N13.30 - UNSPECIFIED HYDRONEPHROSIS SNOMED Code(s): 98448458 (3) UTI (urinary tract infection) Current Visit: Yes Status: Acute Code(s): N39.0 - URINARY TRACT INFECTION, SITE NOT SPECIFIED SNOMED Code(s): 40618426 (4) Leukocytosis Current Visit: No Status: Acute Code(s): D72.829 - ELEVATED WHITE BLOOD CELL COUNT, UNSPECIFIED SNOMED Code(s): 915505049 Plan: 1patient presented to hospital with lower abdominal pain she also have significant mental status changes did have elevated white count meeting criteria for symptomatic/complicated UTI with urine culture showing multidrug-resistant pathogen including Pseudomonas he has been Klebsiella and E. coli 2left heel stage III pressure ulcer without cellulitis, patient does have a stage III sacral pressure ulcer, recommend to keep the area of the pressure and treat with a dry Aquacel silver dressing 3patient is afebrile patient white count has normalized urine is growing VRE, CT abdominal pelvis with improving bilateral hydronephrosis no other acute findings reported 4-patient to continue with daptomycin and recommend 7 days of IV daptomycin on discharge Dictation was produced using [employer] dictation software. please excuse any grammatical, word or spelling errors. Time with Patient: Less than 30
[2024-07-25] MEDS ORDERED: POTASSIUM CHLORIDE ER 20 MEQ TAB.ER PO SCH (17:00)
--- NOTE | 2024-07-25 19:08 | P.PN ---
Subjective Progress Note Date: 07/25/24 This is a 64-year-old female who has been here for quite some time continues to report significant abdominal pain being followed by multiple consultations initially admitted for UTI with hydronephrosis and severe eosinophilia. Patient continues to have persistent abdominal pain and repeat CAT scan was performed. Patient's urine culture repeat is now showing VRE with infectious disease following. Urology has been following regarding hydronephrosis and discussing possible cystoscopy with retrograde although is canceling as hydronephrosis has improved with an indwelling Llanes catheter and recommend to continue with antibiotics per ID recommendations along with continued indwelling Llanes catheter. Patient is continued on antibiotics in the form of daptomycin with infectious disease following closely. Potassium low at 2.9 and will replace per protocol and follow-up on repeat labs. 07/25/2024 Patient is seen in follow-up this morning and is lethargic although arousable reporting some improvement in abdominal pain. Patient was reevaluated by urology with no plans of cystoscopy at this time as patient's hydronephrosis has resolved with indwelling Llanes catheter and will continue. Patient urine culture showing VRE with infectious disease following and will need a midline for outpatient IV antibiotic therapy to be arranged. Case management following and will discuss discharge planning. Follow-up potassium is improved and we will continue to monitor closely and follow-up labs in AM. Recommend PT/OT therapy evaluation. Patient is afebrile with no reported chest pain or shortnes s of breath. Patient reports is tolerating diet and denies nausea or vomiting at this time. Review of systems: Constitutional: No reports of fatigue, fever, or chills Cardiovascular: No reports of chest pain or palpitations Respiratory: No reports of shortness of breath or cough GI: reports of nausea, no reports of vomiting, patient is having bowel movements, reports improvement in abdominal pain slightly : No reports of dysuria, continued on indwelling Llanes catheter Neurovascular: reports of generalized weakness All medications have been reviewed PHYSICAL EXAMINATION: GENERAL: The patient is alert and oriented x4, Well developed, well nourished. Elderly appearing, obese HEENT: Pupils are round and equally reacting to light. EOMI. no scleral icterus. No conjunctival pallor. Normocephalic, atraumatic. No pharyngeal erythema. No thyromegaly. CARDIOVASCULAR: S1 and S2 muffled PULMONARY: diminished breath sounds bilaterally with no wheezing or rhonchi noted. ABDOMEN: soft. Less tender on exam in the mid and upper epigastric region and bilateral left and right quadrants. obese. non-distended, normoactive bowel sounds. No palpable organomegaly. MUSCULOSKELETAL: No joint swelling or deformity. EXTREMITIES: No cyanosis, clubbing, or pedal edema. NEUROLOGICAL: Gross neurological examination did not reveal any focal deficits. Diffuse weakness SKIN: No rashes. Assessment: Extended spectrum beta-lactamase Klebsiella urinary tract infection with repeat culture showing VRE, present on admission urinary tract infection Bilateral hydronephrosis with abdominal pain, improved status post indwelling Llanes catheter and will continue Severe eosinophilia longstanding with monocytosis acute on chronic Skin rash, possibly allergic, status post biopsy with general surgery and results are pending Sacral pressure injury, present on admission Chronic hydronephrosis with bladder wall thickening, improving and urology recommending continuing with indwelling Llanes catheter No evidence of colovesical fistula as of now per the reports Previous history of TIAs Chronic back pain 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 Urology has reevaluated the patient recommending to continue with indwelling Llanes catheter and no surgical intervention at this time as hydronephrosis has resolved. Patient reports some improvement in upper abdominal pain. Recent repeat CT was done showing circumferential wall thickening without surrounding fat stranding measuring up to 1 cm of the bladder uterus is absent, improvement in previously demonstrated bilateral hydronephrosis with nonobstructive bilateral renal calculi redemonstrated, sacral decubitus ulcer identified with stranding and gas with no evidence of osteomyelitis or gas fluid collection with small bilateral pleural effusions with right medial lower lobe consolidation redemonstrated Discussion was had of possible transfer for possible tertiary care as patient is not improving. Patient does not want to transfer and she would like to talk further with her daughter regarding this. [facility] was contacted and was not accepted for transfer Infectious disease following and will plan for midline and IV antibiotics outpatient. To discuss with case management regarding discharge planning Due to multiple complex medical issues, overall prognosis is guarded The impression and plan of care has been dictated by Nahomy [place], nurse practitioner as directed. Dr. Emile MD I have performed a history and examination and MDM of this patient, discussed the same with the dictator, and agree with the dictator's assessment and plan as written ,documented as a scribe. Based on total visit time, I have performed more than 50% of the visit. Any additional findings or plans will be noted. Objective - Vital Signs Vital signs: Vital Signs Temp 97.7 F 07/25/24 07:45 Pulse 72 07/25/24 07:45 Resp 18 07/25/24 07:45 BP 110/64 07/25/24 07:45 Pulse Ox 92 L 07/25/24 07:45 FiO2 Intake & Output 07/24/24 07/25/24 07/25/24 18:59 06:59 18:59 Intake Total 1420 660 Output Total 3600 1300 Balance -2180 -640 Intake: Intake, IV Titration 700 Amount DAPTOmycin 250 mg In 100 Sodium Chloride 0.9% 50 ml @ 100 mls/hr IVPB Q24HR [facility] Rx#:[id number] Sodium Chloride 0.9% 1, 600 000 ml @ 75 mls/hr IV . [id number] [facility] Rx#:[id number] Oral 720 660 Output: Urine 3600 1300 Uretheral (Llanes) 2800 Other: Voiding Method Indwelling Catheter Indwelling Catheter # Bowel Movements 1 - Labs CBC & Chem 7: 07/24/24 04:12 07/25/24 07:31
--- NOTE | 2024-07-26 12:39 | P.PN ---
Subjective Progress Note Date: 07/26/24 SURGICAL PROGRESS NOTE CHIEF COMPLAINT: UTI HISTORY OF PRESENT ILLNESS: Patient status post EGD and colonoscopy on 07/19/2024 reports gastritis and transverse colon polyp. She is also status post punch bi opsy of left arm skin lesion. Pathology result noted transverse colon tubular adenoma. Rectal biopsy slight and focal hyperplasia. Left arm skin biopsy negative for significant eosinophilia or malignancy. Sun damaged skin with minimal epidermal actinic change. Tolerating diet. Afebrile. PHYSICAL EXAM: VITAL SIGNS: Reviewed. GENERAL: Well-developed in no acute distress. ABDOMEN: Soft. Nondistended. NEUROLOGIC: Alert and oriented. Cranial nerves II through XII grossly intact. ASSESSMENT: 1. Abdominal pain across upper abdomen. Status post EGD and colonoscopy reporting gastritis and transverse colon polyp 2. Left arm skin lesion status post punch biopsy PLAN: - Continue PPI - Continue regular diet - Okay to discharge from surgical standpoint when medically cleared Physician Project Buyer note has been reviewed by physician. Signing provider agrees with the documented findings, assessment, and plan of care. Objective - Vital Signs Vital signs: Vital Signs Temp 98.1 F 07/26/24 07:30 Pulse 72 07/26/24 07:30 Resp 20 07/26/24 07:30 BP 135/80 07/26/24 07:30 Pulse Ox 94 L 07/26/24 09:05 FiO2 Intake & Output 07/25/24 07/26/24 07/26/24 18:59 06:59 18:59 Output Total 2850 950 900 Balance -2850 -950 -900 Weight 81.647 kg Output: Urine 2850 950 900 Other: Voiding Method Indwelling Catheter Indwelling Catheter Indwelling Catheter # Bowel Movements 1 - Labs CBC & Chem 7: 07/24/24 04:12 07/25/24 07:31
--- NOTE | 2024-07-26 15:04 | P.PN ---
Subjective Progress Note Date: 07/26/24 Principal diagnosis: Reason for follow-up is complicated UTI Patient is a 64-year-old female with a past medical history significant for TIA depression did have history of left heel infected ulcer with osteomyelitis present to the hospital abdominal pain he did have a abdominal CT concerning for bilateral hydronephrosis hydroureter and question of cystitis with urine culture multiple pathogen prompted this consultation. On today's evaluation that is 07/26/2024,the patient denies any fever or any chills, patient is breathing comfortably on room air, the patient denies chest pain shortness of breath and no significant cough, patient complaining of some epigastric discomfort but no nausea vomiting or diarrhea. No new lab has been obtained today Objective - Vital Signs Vital signs: Vital Signs Temp 98.3 F 07/26/24 13:43 Pulse 94 07/26/24 13:43 Resp 17 07/26/24 13:43 BP 107/74 07/26/24 13:43 Pulse Ox 97 07/26/24 13:43 FiO2 Intake & Output 07/25/24 07/26/24 07/26/24 18:59 06:59 18:59 Output Total 2850 950 900 Balance -2850 -950 -900 Weight 81.647 kg Output: Urine 2850 950 900 Other: Voiding Method Indwelling Catheter Indwelling Catheter Indwelling Catheter # Bowel Movements 1 - Exam GENERAL DESCRIPTION: An elderly female lying in bed in no distress RESPIRATORY SYSTEM: Unlabored breathing , decreased breath sounds at bases HEART: S1 S2 regular rate and rhythm , ABDOMEN: Soft , no tenderness, patient did have a stage III sacral pressure ulcer wound base looks clean no slough or surrounding redness EXTREMITIES: Left heel stage III ulcer but no slough tissue or surrounding redness - Labs CBC & Chem 7: 07/24/24 04:12 07/25/24 07:31 Assessment and Plan (1) Infection due to ESBL-producing Klebsiella pneumoniae Current Visit: Yes Status: Acute Code(s): A49.8 - OTHER BACTERIAL INFECTIONS OF UNSPECIFIED SITE; Z16.12 - EXTENDED SPECTRUM BETA LACTAMASE (ESBL) RESISTANCE SNOMED Code(s): 202363081 (2) Hydronephrosis Current Visit: Yes Status: Acute Code(s): N13.30 - UNSPECIFIED HYDRONEPHROSIS SNOMED Code(s): 26581982 (3) UTI (urinary tract infection) Current Visit: Yes Status: Acute Code(s): N39.0 - URINARY TRACT INFECTION, SITE NOT SPECIFIED SNOMED Code(s): 99289801 (4) Leukocytosis Current Visit: No Status: Acute Code(s): D72.829 - ELEVATED WHITE BLOOD CELL COUNT, UNSPECIFIED SNOMED Code(s): 317002620 Plan: 1patient presented to hospital with lower abdominal pain she also have signifi cant mental status changes did have elevated white count meeting criteria for symptomatic/complicated UTI with urine culture showing multidrug-resistant pathogen including Pseudomonas he has been Klebsiella and E. coli 2left heel stage III pressure ulcer without cellulitis, patient does have a stage III sacral pressure ulcer, recommend to keep the area of the pressure and treat with a dry Aquacel silver dressing 3patient is afebrile patient white count has normalized urine is growing VRE, CT abdominal pelvis with improving bilateral hydronephrosis no other acute findings reported, she will continue with the daptomycin to finish her course of therapy Dictation was produced using [employer] dictation software. please excuse any grammatical, word or spelling errors. Time with Patient: Less than 30
[2024-07-26] MEDS: MORPHINE SULFATE IR 15 MG TABLET PO PRN (15:48)
--- NOTE | 2024-07-27 06:10 | P.PN ---
Subjective Progress Note Date: 07/26/24 This is a 64-year-old female who has been here for quite some time continues to report significant abdominal pain being followed by multiple consultations initially admitted for UTI with hydronephrosis and severe eosinophilia. Patient continues to have persistent abdominal pain and repeat CAT scan was performed. Patient's urine culture repeat is now showing VRE with infectious disease following. Urology has been following regarding hydronephrosis and discussing possible cystoscopy with retrograde although is canceling as hydronephrosis has improved with an indwelling Llanes catheter and recommend to continue with antibiotics per ID recommendations along with continued indwelling Llanes catheter. Patient is continued on antibiotics in the form of daptomycin with infectious disease following closely. Potassium low at 2.9 and will replace per protocol and follow-up on repeat labs. 07/25/2024 Patient is seen in follow-up this morning and is lethargic although arousable reporting some improvement in abdominal pain. Patient was reevaluated by urology with no plans of cystoscopy at this time as patient's hydronephrosis has resolved with indwelling Llanes catheter and will continue. Patient urine culture showing VRE with infectious disease following and will need a midline for outpatient IV antibiotic therapy to be arranged. Case management following and will discuss discharge planning. Follow-up potassium is improved and we will continue to monitor closely and follow-up labs in AM. Recommend PT/OT therapy evaluation. Patient is afebrile with no reported chest pain or shortnes s of breath. Patient reports is tolerating diet and denies nausea or vomiting at this time. 07/26/2024 Patient is seen in follow-up today feels slightly improved more awake sitting up in the bed. Patient is maintained on IV antibiotics with infectious disease following and will continue with outpatient antibiotics via midline in the form of daptomycin for an additional week on discharge. Patient is afebrile white count has normalized although patient continues to report diffuse upper epigas tric abdominal pain. Potassium slightly low at 2.9 being replaced per protocol will follow-up with repeat labs. Patient reports no chest pain or shortness of breath. Patient reports to tolerating diet with no much of an appetite but denies any nausea or vomiting at this time. Review of systems: Constitutional: No reports of fatigue, fever, or chills Cardiovascular: No reports of chest pain or palpitations Respiratory: No reports of shortness of breath or cough GI: reports of nausea, no reports of vomiting, patient is having bowel movements, reports improvement in abdominal pain slightly : No reports of dysuria, continued on indwelling Llanes catheter Neurovascular: reports of generalized weakness All medications have been reviewed PHYSICAL EXAMINATION: GENERAL: The patient is alert and oriented x4, Well developed, well nourished. Elderly appearing, obese HEENT: Pupils are round and equally reacting to light. EOMI. no scleral icterus. No conjunctival pallor. Normocephalic, atraumatic. No pharyngeal erythema. No thyromegaly. CARDIOVASCULAR: S1 and S2 muffled PULMONARY: diminished breath sounds bilaterally with no wheezing or rhonchi noted. ABDOMEN: soft. Less tender on exam in the mid and upper epigastric region and bilateral left and right quadrants. obese. non-distended, normoactive bowel sounds. No palpable organomegaly. MUSCULOSKELETAL: No joint swelling or deformity. EXTREMITIES: No cyanosis, clubbing, or pedal edema. NEUROLOGICAL: Gross neurological examination did not reveal any focal deficits. Diffuse weakness SKIN: No rashes. Assessment: Extended spectrum beta-lactamase Klebsiella urinary tract infection with repeat culture showing VRE, present on admission urinary tract infection Bilateral hydronephrosis with abdominal pain, improved status post indwelling Llanes catheter and will continue Severe eosinophilia longstanding with monocytosis acute on chronic Skin rash, possibly allergic, status post biopsy with general surgery and results are pending Sacral pressure injury, present on admission Chronic hydronephrosis with bladder wall thickening, improving and urology recommending continuing with indwelling Llanes catheter No evidence of colovesical fistula as of now per the reports Previous history of TIAs Chronic back pain 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 Urology has reevaluated the patient recommending to continue with indwelling Llanes catheter and no surgical intervention at this time as hydronephrosis has resolved. Patient reports some improvement in upper abdominal pain. Recent repeat CT was done showing circumferential wall thickening without surrounding fat stranding measuring up to 1 cm of the bladder uterus is absent, improvement in previously demonstrated bilateral hydronephrosis with nonobstructive bilateral renal calculi redemonstrated, sacral decubitus ulcer identified with stranding and gas with no evidence of osteomyelitis or gas fluid collection with small bilateral pleural effusions with right medial lower lobe consolidation redemonstrated Discussion was had of possible transfer for possible tertiary care as patient is not improving. Patient does not want to transfer and she would like to talk further with her daughter regarding this. [place] was contacted and was not accepted for transfer Infectious disease following and will plan for midline and IV antibiotics outpatient. To discuss with case management regarding discharge planning. Plan will be to return to [facility] on discharge Due to multiple complex medical issues, overall prognosis is guarded The impression and plan of care has been dictated by Nahomy Washington, nurse practitioner as directed. Dr. Emile MD I have performed a history and examination and MDM of this patient, discussed the same with the dictator, and agree with the dictator's assessment and plan as written ,documented as a scribe. Based on total visit time, I have performed more than 50% of the visit. Any additional findings or plans will be noted. Objective - Vital Signs Vital signs: Vital Signs Temp 98.5 F 07/27/24 02:00 Pulse 79 07/27/24 02:00 Resp 16 07/27/24 02:00 BP 119/72 07/27/24 02:00 Pulse Ox 94 L 07/27/24 02:00 FiO2 Intake & Output 07/26/24 07/26/24 07/27/24 06:59 18:59 06:59 Output Total 950 1700 1000 Balance -950 -1700 -1000 Output: Urine 950 1700 1000 Other: Voiding Method Indwelling Catheter Indwelling Catheter - Labs CBC & Chem 7: 07/24/24 04:12 07/25/24 07:31
[2024-07-27 07:57] LABS: Basophils # (A) 0.07 10*3/uL (0.00-0.10); Basophils % (A) 0.6 %; Eosinophils # (A) 0.83 10*3/uL (0.04-0.35); Eosinophils % (A) 6.8 %; HCT 36.1 % (37.2-46.3); HGB 11.5 g/dL (12.0-15.0); Lymphocytes % (A) 26.2 %; MCH 25.8 pg (27.0-32.0); MCHC 31.9 g/dL (32.0-37.0); MCV 81.1 fL (80.0-97.0); Mean Platelet Volume 8.8 fL (9.5-12.2); Monocytes # (A) 1.36 10*3/uL (0.20-1.00); Monocytes % (A) 11.1 %; Neutrophils # (A) 6.68 10*3/uL (1.80-7.70); Neutrophils % (A) 54.7 %; RBC 4.45 10*6/uL (4.10-5.20); RDW 17.8 % (11.5-14.5); WBC 12.21 10*3/uL (4.50-10.00)
[2024-07-27 08:11] LABS: Platelet Count 531 10*3/uL (140-440)
[2024-07-27 08:13] LABS: African American GFR (CKD) >90 (>60 ml/min/1.73 sqM); Anion Gap 8 mmol/L; Blood Urea Nitrogen 6 mg/dL (7-17); Calcium 8.3 mg/dL (8.4-10.2); Carbon Dioxide 24 mmol/L (22-30); Chloride 105 mmol/L (98-107); Glucose 112 mg/dL (74-99); Magnesium 1.5 mg/dL (1.6-2.3); Non-African American GFR(CKD) >90 (>60 ml/min/1.73 sqM); Sodium 137 mmol/L (137-145)
--- NOTE | 2024-07-27 09:22 | P.PN ---
Subjective Progress Note Date: 07/27/24 Patient remained stable. She denies any abdominal pain she is having normal bowel movements. On exam vital signs appear stable. Abdomen soft. Patient cleared to receive supportive care. Objective - Vital Signs Vital signs: Vital Signs Temp 98.1 F 07/27/24 07:00 Pulse 94 07/27/24 07:00 Resp 18 07/27/24 07:00 BP 139/72 07/27/24 07:00 Pulse Ox 95 07/27/24 07:00 FiO2 Intake & Output 07/26/24 07/27/24 07/27/24 18:59 06:59 18:59 Output Total 1700 1000 Balance -1700 -1000 Output: Urine 1700 1000 Other: Voiding Method Indwelling Catheter - Labs CBC & Chem 7: 07/27/24 07:45 07/27/24 07:45 Labs: Abnormal Lab Results - Last 24 Hours (Table) 07/27/24 07/27/24 Range/Units 07:45 07:45 WBC 12.21 H (4.50-10.00) 10*3/uL Hgb 11.5 L (12.0-15.0) g/dL Hct 36.1 L (37.2-46.3) % MCH 25.8 L (27.0-32.0) pg MCHC 31.9 L (32.0-37.0) g/dL RDW 17.8 H (11.5-14.5) % Plt Count 531 H D (140-440) 10*3/uL MPV 8.8 L (9.5-12.2) fL Immature Gran # 0.07 H (0.00-0.04) 10*3/uL Monocytes # 1.36 H (0.20-1.00) 10*3/uL Eosinophils # 0.83 H (0.04-0.35) 10*3/uL Potassium 3.0 L (3.5-5.1) mmol/L BUN 6 L (7-17) mg/dL Creatinine 0.36 L (0.52-1.04) mg/dL Glucose 112 H (74-99) mg/dL Calcium 8.3 L (8.4-10.2) mg/dL Magnesium 1.5 L (1.6-2.3) mg/dL
--- NOTE | 2024-07-27 11:34 | P.PN ---
Subjective This is a 64-year-old female who has been here for quite some time continues to report significant abdominal pain being followed by multiple consultations initially admitted for UTI with hydronephrosis and severe eosinophilia. Patient continues to have persistent abdominal pain and repeat CAT scan was performed. Patient's urine culture repeat is now showing VRE with infectious disease following. Urology has been following regarding hydronephrosis and discussing possible cystoscopy with retrograde although is canceling as hydronephrosis has improved with an indwelling Llanes catheter and recommend to continue with antibiotics per ID recommendations along with continued indwelling Llanes catheter. Patient is continued on antibiotics in the form of daptomycin with infectious disease following closely. Potassium low at 2.9 and will replace per protocol and follow-up on repeat labs. 07/25/2024 Patient is seen in follow-up this morning and is lethargic although arousable reporting some improvement in abdominal pain. Patient was reevaluated by urology with no plans of cystoscopy at this time as patient's hydronephrosis has resolved with indwelling Llanes catheter and will continue. Patient urine culture showing VRE with infectious disease following and will need a midline for outpatient IV antibiotic therapy to be arranged. Case management following and will discuss discharge planning. Follow-up potassium is improved and we will continue to monitor closely and follow-up labs in AM. Recommend PT/OT therapy evaluation. Patient is afebrile with no reported chest pain or shortness of breath. Patient reports is tolerating diet and denies nausea or vomiting at this time. 07/26/2024 Patient is seen in follow-up today feels slightly improved more awake sitting up in the bed. Patient is maintained on IV antibiotics with infectious disease following and will continue with outpatient antibiotics via midline in the form of daptomycin for an additional week on discharge. Patient is afebrile white count has normalized although patient continues to report diffuse upper epigastric abdominal pain. Potassium slightly low at 2.9 being replaced per protocol will follow-up with repeat labs. Patient reports no chest pain or shortness of breath. Patient reports to tolerating diet with no much of an appetite but denies any nausea or vomiting at this time. 07/27 This is a pleasant 64 years old female who has been treated currently for pneumonia secondary to ESBL Klebsiella and UTI with hydronephrosis secondary to VRE she is getting IV daptomycin infusion with ID team following closely Since Llanes catheter was placed here in the hospital it looks like hydronephrosis is improving as patient has some evidence of obstructive uropathy. Patient is awake alert states she is bedbound for about a year since she had avilez rgery at [facility] in her back. She still have chronic middle back tenderness radiating to both rib cage inferiorly. Her pain is 8/10 last year and today is the same. No tingling or numbness. Also she denies nausea vomiting, she eats fine. She denies any other abdominal pain other than lower rib cage pain and back pain mentioned above No issues with bowel movement or diarrhea Patient states that she came from home, after the surgery she has to stay in rehab for several months she went home for about 1 month where her daughter was taking care of her before she got sick this time and came back to this facility. Patient expected to go to rehab then upon discharge Currently she is getting normal sinus 75 mL/h Wound people also following the patient for stage III sacral pressure ulcer Thoracic and lumbar x-ray on admission showing postsurgical changes with hardware intact and grade 1 anterolisthesis of L3 on L4 CT of the abdomen and pelvis done on admission showing no acute osseous abnormality. Extensive surgical fusion hardware of the visualized thoracolumbar spine. This creates streak artifact which limits evaluation. Laminectomy changes at L4-S1. Grade 1 anterolisthesis of L3 on L4 without pars defects. Remote fracture of the T8 vertebral body Objective - Vital Signs Vital signs: Vital Signs Temp 98.1 F 07/27/24 07:00 Pulse 94 07/27/24 07:00 Resp 18 07/27/24 07:00 BP 139/72 07/27/24 07:00 Pulse Ox 95 07/27/24 07:00 FiO2 Intake & Output 07/26/24 07/27/24 07/27/24 18:59 06:59 18:59 Output Total 1700 1000 Balance -1700 -1000 Output: Urine 1700 1000 Other: Voiding Method Indwelling Catheter Indwelling Catheter - Exam -GENERAL: The patient is alert and oriented x3, not in any acute distress. Well developed, well nourished. Generally weak, obese HEENT: Pupils are round and equally reacting to light. EOMI. No scleral icterus. No conjunctival pallor. Normocephalic, atraumatic. No pharyngeal erythema. No thyromegaly. CARDIOVASCULAR: S1 and S2 present. No murmurs, rubs, or gallops. PULMONARY: Chest is clear to auscultation, no wheezing , no crackles. -ABDOMEN: Soft, nontender, nondistended, normoactive bowel sounds. No palpable organomegaly. Llanes catheter in place -MUSCULOSKELETAL: No joint swelling or deformity. Mid thoracic spine tenderness radiating to both lower rib cage (chronic as per patient). Stage III sacral pressure ulcer EXTREMITIES: No cyanosis, clubbing, or pedal edema. -NEUROLOGICAL: Gross neurological examination did not reveal any focal deficits. Bedbound SKIN: No rashes. no petechiae. - Labs CBC & Chem 7: 07/27/24 07:45 07/27/24 07:45 Labs: Abnormal Lab Results - Last 24 Hours (Table) 07/27/24 07/27/24 Range/Units 07:45 07:45 WBC 12.21 H (4.50-10.00) 10*3/uL Hgb 11.5 L (12.0-15.0) g/dL Hct 36.1 L (37.2-46.3) % MCH 25.8 L (27.0-32.0) pg MCHC 31.9 L (32.0-37.0) g/dL RDW 17.8 H (11.5-14.5) % Plt Count 531 H D (140-440) 10*3/uL MPV 8.8 L (9.5-12.2) fL Immature Gran # 0.07 H (0.00-0.04) 10*3/uL Monocytes # 1.36 H (0.20-1.00) 10*3/uL Eosinophils # 0.83 H (0.04-0.35) 10*3/uL Potassium 3.0 L (3.5-5.1) mmol/L BUN 6 L (7-17) mg/dL Creatinine 0.36 L (0.52-1.04) mg/dL Glucose 112 H (74-99) mg/dL Calcium 8.3 L (8.4-10.2) mg/dL Magnesium 1.5 L (1.6-2.3) mg/dL Assessment and Plan Assessment: Pneumonia secondary to ESBL Klebsiella UTI with hydronephrosis secondary to VRE Abdominal pain status post EGD showing gastritis and colonoscopy showing transverse colon polyp Chronic back pain radiating to both rib cage she is with history of paraplegia and bedbound x 1 year imaging showing (Extensive surgical fusion hardware of the visualized thoracolumbar spine. This creates streak artifact which limits evaluation. Laminectomy changes at L4-S1. Grade 1 anterolisthesis of L3 on L4 without pars defects. Remote fracture of the T8 vertebral body) Stage III sacral pressure ulcer Chronic bilateral hydronephrosis Left upper extremity lesion status post punch biopsy on 07/19 pending results Generalized weakness History of lung cancer Plan: Continue with daptomycin as per ID team Infectious disease consult General Surgery team consult Follow-up punch biopsy result Continue with pain management Will consult orthopedic team for her back pain Labs and medication were reviewed.. Continue same treatment. Continue with symptomatic treatment. Resume home medication. Monitor labs and vitals. DVT a nd GI prophylaxis. Further recommendations as per clinical course of the patient DVT prophylaxis: Subcutaneous Lovenox GI Prophylaxis: Protonix PT/OT: Pending Prognosis is guarded
--- NOTE | 2024-07-27 16:27 | P.PN ---
Subjective Progress Note Date: 07/27/24 Principal diagnosis: Reason for follow-up is complicated UTI Patient is a 64-year-old female with a past medical history significant for TIA depression did have history of left heel infected ulcer with osteomyelitis present to the hospital abdominal pain he did have a abdominal CT concerning for bilateral hydronephrosis hydroureter and question of cystitis with urine culture multiple pathogen prompted this consultation. On today's evaluation that is 07/27/2024,the patient remains to be afebrile, patient is on room air not requiring supplemental oxygen and denies any shortness of breath no chest pain or cough.Patient denies having any nausea or vomiting, has been having some epigastric discomfort and no diarrhea. Patient white count is 12.21, creatinine 0.36 Objective - Vital Signs Vital signs: Vital Signs Temp 97.8 F 07/27/24 14:43 Pulse 68 07/27/24 14:43 Resp 17 07/27/24 14:43 BP 106/69 07/27/24 14:43 Pulse Ox 96 07/27/24 14:43 FiO2 Intake & Output 07/26/24 07/27/24 07/27/24 18:59 06:59 18:59 Output Total 1700 1000 Balance -1700 -1000 Output: Urine 1700 1000 Other: Voiding Method Indwelling Catheter Indwelling Catheter - Exam GENERAL DESCRIPTION: An elderly female lying in bed in no distress RESPIRATORY SYSTEM: Unlabored breathing , decreased breath sounds at bases HEART: S1 S2 regular rate and rhythm , ABDOMEN: Soft , no tenderness, patient did have a stage III sacral pressure ulcer wound base looks clean no slough or surrounding redness EXTREMITIES: Left heel stage III ulcer but no slough tissue or surrounding redness - Labs CBC & Chem 7: 07/27/24 07:45 07/27/24 07:45 Labs: Abnormal Lab Results - Last 24 Hours (Table) 07/27/24 07/27/24 Range/Units 07:45 07:45 WBC 12.21 H (4.50-10.00) 10*3/uL Hgb 11.5 L (12.0-15.0) g/dL Hct 36.1 L (37.2-46.3) % MCH 25.8 L (27.0-32.0) pg MCHC 31.9 L (32.0-37.0) g/dL RDW 17.8 H (11.5-14.5) % Plt Count 531 H D (140-440) 10*3/uL MPV 8.8 L (9.5-12.2) fL Immature Gran # 0.07 H (0.00-0.04) 10*3/uL Monocytes # 1.36 H (0.20-1.00) 10*3/uL Eosinophils # 0.83 H (0.04-0.35) 10*3/uL Potassium 3.0 L (3.5-5.1) mmol/L BUN 6 L (7-17) mg/dL Creatinine 0.36 L (0.52-1.04) mg/dL Glucose 112 H (74-99) mg/dL Calcium 8.3 L (8.4-10.2) mg/dL Magnesium 1.5 L (1.6-2.3) mg/dL Assessment and Plan (1) Infection due to ESBL-producing Klebsiella pneumoniae Current Visit: Yes Status: Acute Code(s): A49.8 - OTHER BACTERIAL INFECTIONS OF UNSPECIFIED SITE; Z16.12 - EXTENDED SPECTRUM BETA LACTAMASE (ESBL) RESISTANCE SNOMED Code(s): 076825237 (2) Hydronephrosis Current Visit: Yes Status: Acute Code(s): N13.30 - UNSPECIFIED HYDRONEPHROSIS SNOMED Code(s): 21266789 (3) UTI (urinary tract infection) Current Visit: Yes Status: Acute Code(s): N39.0 - URINARY TRACT INFECTION, SITE NOT SPECIFIED SNOMED Code(s): 10207011 (4) Leukocytosis Current Visit: No Status: Acute Code(s): D72.829 - ELEVATED WHITE BLOOD CELL COUNT, UNSPECIFIED SNOMED Code(s): 565033960 Plan: 1patient presented to hospital with lower abdominal pain she also have s ignificant mental status changes did have elevated white count meeting criteria for symptomatic/complicated UTI with urine culture showing multidrug-resistant pathogen including Pseudomonas he has been Klebsiella and E. coli 2left heel stage III pressure ulcer without cellulitis, patient does have a stage III sacral pressure ulcer, recommend to keep the area of the pressure and treat with a dry Aquacel silver dressing 3patient is afebrile patient urine is growing VRE, CT abdominal pelvis with improving bilateral hydronephrosis no other acute findings reported, currently being treated with the daptomycin Dictation was produced using [employer] dictation software. please excuse any grammatical, word or spelling errors. Time with Patient: Less than 30
--- NOTE | 2024-07-28 09:21 | P.PN ---
Subjective Progress Note Date: 07/28/24 The patient has no complaints. She is tolerating diet. We will follow with you. Objective - Vital Signs Vital signs: Vital Signs Temp 97.6 F 07/28/24 07:45 Pulse 78 07/28/24 07:45 Resp 17 07/28/24 07:45 BP 126/81 07/28/24 07:45 Pulse Ox 94 L 07/28/24 07:45 FiO2 Intake & Output 07/27/24 07/28/24 07/28/24 18:59 06:59 18:59 Output Total 1000 1600 Balance -1000 -1600 Output: Urine 1000 1600 Other: Voiding Method Indwelling Catheter - Labs CBC & Chem 7: 07/27/24 07:45 07/27/24 07:45
--- NOTE | 2024-07-28 10:24 | P.CNOR ---
History of Present Illness - [facility] Consult date: 07/28/24 Requesting physician: Guido E Sheet Consult reason: back pain History of present illness: History of Presenting Illness Patient is a pleaseant 64 year old female who presented to the ER for sharp severe abdominal pain without any dysuria or increased urinary urgency or frequency. Patient was admitted on 07/10/24 and has had a thorough workup. Our services have been consulted for mid back pain. Patient is known to our service. Patient had fallen back in 2021 and underwent T6-T10 stabilization for a T8 burst fracture. Patient was seen in our office for a 6 week follow up and was referred to pain management for chronic pain. Patient states she has been following with them. Patient did not return to office for any further post-op evaluations. She states she had multiple falls since her procedure and was sent to [facility] where she had 2 additional spine surgeries. Patient currently has complaint of epigastric pain that radiates around into her ribs and back. She states she continues to have BLE weakness and numbness/tingling. Patient is unable to perform any BLE exercises. She states since her last surgery on her thoracic perform July-August 2023 she has been unable to bear weight or move her lower extremities. Patient does report that she has a pressure wound to her buttock and left heel that is currently being treated by wound care. X-ray of the thoracic and lumbar spine taken on 07/15/24 demonstrates fixation hardware at L4-S1 as well as throughout the thoracic spine. There is a grade 1 anterolisthesis L3 on L4. Hardware appears intact. No evidence of any acute osseous pathology. Thoracic alignment is satisfactory. Scattered disc space narrowing. Multilevel marginal osteophyte formation throughout the visualized spine. There is facet joint arthropathic throughout the spine. Scattered mild neuroforaminal stenosis. Review of Systems Pertinent positives and negatives as discussed in HPI, a complete review of systems was performed and all other systems are negative. Physical Examination General: The patient is awake and alert, in no acute distress Skin: Skin is warm and dry with no obvious rashes or lesions. Pressure wounds to coccyx and left heel, dressings intact. Neck: The neck is supple, there is no tenderness and ROM intact. Cardiovascular: There is a regular rate and rhythm. Respiratory: Respirations are non-labored. Gastrointestinal: Soft, non-distended, non-tender abdomen. Back: There is no tenderness to palpation in the midline, paralumbar, paratho racic or buttocks region. There is no obvious deformity. Musculoskeletal: ROM limited secondary to pain and stiffness Right: shoulder abduction 5/5, elbow flexors 5/5, wrist dorsiflexors 5/5. finger abductor 5/5, wind turbine controls engineer 5/5 Left: shoulder abduction 5/5, elbow flexors 5/5, wrist dorsiflexors 5/5. finger abductor 5/5, wind turbine controls engineer 5/5 BLE: Patient states she is unable to move her lower extremities. Neurological: CN 2-12 intact. There are no obvious motor or sensory deficits. Movement and coordination equal and intact. Sensory exam to light touch intact C5-T1 and intact from L2-S1. Reflexes 2/4 in bilateral upper and lower extremities. Negative Hoffmans, babinski, and clonus signs. Psychiatric: Cooperative, appropriate mood & affect, normal judgment. Assessment h/o multiple thoracic spine stabilization h/o L4-S1 decompression and fusion h/o cervical fusion Chronic pain Bilateral lower extremity radiculopathy Bilateral lower extremity weakness Plan At this time we do not recommend any emergent/urgent orthopedic surgical intervention. Patient may follow-up with Dr. Bautista's office or surgeon from [facility] for further evaluation as needed. Orthopedics is signing off at this time. Please do not hesitate to contact us for any further questions. 2. Appreciate medical management 3. Pain management -Continue with current regimen, patient to continue with treatment plan from pain management 6. PT/OT - weightbearing as tolerated with a walker as needed. 7. Appreciate consult. I reviewed and discussed this case with my attending Dr. Bautista, whom has reviewed this chart and films and is in agreement with assessment and plan of care as outlined above. I have personally seen and examined the patient, performed the documentation and the assessment and plan as written. Number of minutes spent on the visit: 30m. Past Medical History Past Medical History: Cancer, Hearing Disorder / Deafness Additional Past Medical History / Comment(s): back pain; "several tia's-Last TIA 1 1/2 YEARS AGO, pluerisy, migraines, past falls, "was told at [facility] she had non-alcoholic cirrhosis". lung cancer History of Any Multi-Drug Resistant Organisms: ESBL, VRE Year Discovered:: 07/20/24-VRE; 5/7/25-ESBL MDRO Source:: VRE-urine; ESBL-urine Past Surgical History: Back Surgery, Breast Surgery, Cholecystectomy, Hysterectomy Additional Past Surgical History / Comment(s): back sx, neck sx. spleenectomy- d/t injury; benign R Breast lumpectomy, sinus sx Past Anesthesia/Blood Transfusion Reactions: No Reported Reaction Additional Past Anesthesia/Blood Transfusion Reaction / Comm: Pt hs clausterphobia Past Psychological History: Depression Smoking Status: Former smoker Past Alcohol Use History: None Reported Past Drug Use History: None Reported - Past Family History Mother Family Medical History: Cancer Additional Family Medical History / Comment(s): Father History Unknown: Yes Family Medical History: No Reported History Additional Family Medical History / Comment(s): Father was murdered Medications and Allergies Home Medications Medication Instructions Recorded Confirmed Type ALPRAZolam [Xanax] 0.5 mg PO TID PRN 05/24/24 07/10/24 History Cyclobenzaprine [Flexeril] 5 mg PO BID@0900,1200 PRN 05/24/24 07/10/24 History Acetaminophen [Tylenol Extra 500 mg PO Q6H PRN 07/10/24 07/10/24 History Strength] Amino Acids/Protein Hydrolys 30 ml PO DAILY 07/10/24 07/10/24 History [Pro-Stat Awc Liquid] Baclofen 10 mg PO DAILY 07/10/24 07/10/24 History Buprenorphine [Butrans 7.5 MCG/HR] 1 patch TRANSDERM FR 07/10/24 07/10/24 History DULoxetine HCL [Cymbalta] 60 mg PO BID 07/10/24 07/10/24 History Ensure 1 can PO BID@0900,1700 07/10/24 07/10/24 History Mag Hydrox/Aluminum Hyd/Simeth 30 ml PO Q6H PRN 07/10/24 07/10/24 History [Mylanta Maximum Strength Liq] Morphine Sulfate Ir [MSIR] 15 mg PO Q6HR PRN 07/10/24 07/10/24 History Sennosides/Docusate Sodium [Senna 1 tab PO DAILY 07/10/24 07/10/24 History Plus 8.6-50 mg Tablet] Tetrahydrozoline 0.05% Ophth 1 drop BOTH EYES QID PRN 07/10/24 07/10/24 History [Visine Eye Drops] hydrALAZINE HCL [Apresoline] 50 mg PO TID PRN 07/10/24 07/10/24 History polyethylene glycoL 3350 [Miralax] 17 gm PO MOWEFR@2100 07/10/24 07/10/24 History Allergies Allergy/AdvReac Type Severity Reaction Status Date / Time gentamicin Allergy Anaphylaxis Verified 07/10/24 09:23 Iodinated Contrast Media Allergy Rash/Hives Verified 07/10/24 09:23 Results - Labs Labs: H & H 07/09/24 07/11/24 07/13/24 Range/Units 21:01 04:17 04:34 Hgb 11.6 L 10.2 L 11.0 L (12.0-15.0) g/dL Hct 35.1 L 32.9 L 36.1 L (37.2-46.3) % 07/15/24 07/16/24 07/17/24 Range/Units 04:25 03:33 05:33 Hgb 11.4 L 11.2 L 10.9 L (12.0-15.0) g/dL Hct 37.0 L 37.5 33.7 L (37.2-46.3) % 07/18/24 07/19/24 07/20/24 Range/Units 04:22 06:05 04:22 Hgb 10.7 L 10.6 L 10.6 L (12.0-15.0) g/dL Hct 34.4 L 32.9 L 35.2 L (37.2-46.3) % 07/21/24 07/22/24 07/23/24 Range/Units 03:14 06:02 03:34 Hgb 10.3 L 12.3 12.1 (12.0-15.0) g/dL Hct 34.6 L 39.9 38.4 (37.2-46.3) % 07/24/24 07/27/24 Range/Units 04:12 07:45 Hgb 11.8 L 11.5 L (12.0-15.0) g/dL Hct 38.9 36.1 L (37.2-46.3) % Result Diagrams: 07/27/24 07:45 07/27/24 07:45
--- NOTE | 2024-07-28 11:44 | P.PN ---
Subjective This is a 64-year-old female who has been here for quite some time continues to report significant abdominal pain being followed by multiple consultations initially admitted for UTI with hydronephrosis and severe eosinophilia. Patient continues to have persistent abdominal pain and repeat CAT scan was performed. Patient's urine culture repeat is now showing VRE with infectious disease following. Urology has been following regarding hydronephrosis and discussing possible cystoscopy with retrograde although is canceling as hydronephrosis has improved with an indwelling Llanes catheter and recommend to continue with antibiotics per ID recommendations along with continued indwelling Llanes catheter. Patient is continued on antibiotics in the form of daptomycin with infectious disease following closely. Potassium low at 2.9 and will replace per protocol and follow-up on repeat labs. 07/25/2024 Patient is seen in follow-up this morning and is lethargic although arousable reporting some improvement in abdominal pain. Patient was reevaluated by urology with no plans of cystoscopy at this time as patient's hydronephrosis has resolved with indwelling Llanes catheter and will continue. Patient urine culture showing VRE with infectious disease following and will need a midline for outpatient IV antibiotic therapy to be arranged. Case management following and will discuss discharge planning. Follow-up potassium is improved and we will continue to monitor closely and follow-up labs in AM. Recommend PT/OT therapy evaluation. Patient is afebrile with no reported chest pain or shortness of breath. Patient reports is tolerating diet and denies nausea or vomiting at this time. 07/26/2024 Patient is seen in follow-up today feels slightly improved more awake sitting up in the bed. Patient is maintained on IV antibiotics with infectious disease following and will continue with outpatient antibiotics via midline in the form of daptomycin for an additional week on discharge. Patient is afebrile white count has normalized although patient continues to report diffuse upper epigastric abdominal pain. Potassium slightly low at 2.9 being replaced per protocol will follow-up with repeat labs. Patient reports no chest pain or shortness of breath. Patient reports to tolerating diet with no much of an appetite but denies any nausea or vomiting at this time. 07/27 This is a pleasant 64 years old female who has been treated currently for pneumonia secondary to ESBL Klebsiella and UTI with hydronephrosis secondary to VRE she is getting IV daptomycin infusion with ID team following closely Since Llanes catheter was placed here in the hospital it looks like hydronephrosis is improving as patient has some evidence of obstructive uropathy. Patient is awake alert states she is bedbound for about a year since she had avilez rgery at [facility] in her back. She still have chronic middle back tenderness radiating to both rib cage inferiorly. Her pain is 8/10 last year and today is the same. No tingling or numbness. Also she denies nausea vomiting, she eats fine. She denies any other abdominal pain other than lower rib cage pain and back pain mentioned above No issues with bowel movement or diarrhea Patient states that she came from home, after the surgery she has to stay in rehab for several months she went home for about 1 month where her daughter was taking care of her before she got sick this time and came back to this facility. Patient expected to go to rehab then upon discharge Currently she is getting normal sinus 75 mL/h Wound people also following the patient for stage III sacral pressure ulcer Thoracic and lumbar x-ray on admission showing postsurgical changes with hardware intact and grade 1 anterolisthesis of L3 on L4 CT of the abdomen and pelvis done on admission showing no acute osseous abnormality. Extensive surgical fusion hardware of the visualized thoracolumbar spine. This creates streak artifact which limits evaluation. Laminectomy changes at L4-S1. Grade 1 anterolisthesis of L3 on L4 without pars defects. Remote fracture of the T8 vertebral body 07/28 Patient states she is little worse today complaining from more pain in both lower rib cages about the same area as of yesterday but more severe However her back pain is the same 8/10 She ate little bit today but had good bowel movement and abdomen not distended Her urine and breathing is fine as she states Orthopedic team thinks her back pain from previous surgeries and fusion is chronic and has chronic radiculopathy and weakness in the lower extremity and recommended no surgical intervention and follow-up as an outpatient. Will increase her Dilaudid for better pain control and check chest x-ray today. Add magnesium oxide for 3 doses and check magnesium and labs in the morning Review of systems HEENT: No recent visual problems or hearing problems. Denied any sore throat. CARDIOVASCULAR: No orthopnea, PND, no palpitations, no syncope. HEMATOLOGICAL: Denies any bleeding or petechiae. GENITOURINARY: Denies any burning micturition, frequency, or urgency. MUSCULOSKELETAL/RHEUMATOLOGICAL: Denies any joint pain, swelling, or any muscle pain. ENDOCRINE: Denies any polyuria or polydipsia. Active Medications Generic Name Dose Route Start Last Admin Trade Name Freq PRN Reason Stop Dose Admin Acetaminophen 500 mg 07/10/24 12:36 07/27/24 18:16 Acetaminophen Tab 500 Mg Tab PO 500 mg Q6H PRN Administration Mild Pain Al Hydroxide/Mg Hydroxide 30 ml 07/10/24 12:36 07/23/24 10:59 Mag Hydrox/Al Hydrox/Simeth 30 Ml Cup PO 30 ml Q6H PRN Administration GI Upset Alprazolam 0.5 mg 07/11/24 14:30 07/28/24 03:07 Alprazolam 0.5 Mg Tab PO 0.5 mg TID PRN Administration Anxiety Calamine 1 applic 07/16/24 18:29 Calamine/Zinc Oxide Lotion 177 Ml Btl TOPICAL BID PRN Skin Irritation Protocol Cyclobenzaprine HCl 5 mg 07/11/24 09:00 07/23/24 12:51 Cyclobenzaprine 5 Mg Tab PO 5 mg BID@0900,1200 PRN Administration Muscle Spasm Diphenhydramine HCl 25 mg 07/17/24 12:12 07/27/24 21:29 Diphenhydramine 25 Mg Cap PO 25 mg Q8HR PRN Administration Itching Duloxetine HCl 60 mg 07/10/24 21:00 07/28/24 08:15 Duloxetine Hcl 60 Mg Capsule.Dr PO 60 mg BID EDEN Administration Enoxaparin Sodium 40 mg 07/11/24 09:00 07/28/24 08:15 Enoxaparin 40 Mg/0.4 Ml Syringe SQ 40 mg DAILY EDEN Administration Hydromorphone HCl 0.5 mg 07/20/24 15:28 07/28/24 06:02 Hydromorphone 0.5 Mg/0.5 Ml Syringe IVP 0.5 mg Q6HR PRN Administration Severe Pain (Scale 7 to 10) Hydromorphone HCl 1 mg 07/28/24 11:37 Hydromorphone 1 Mg/Ml 1 Ml Syringe IVP Q4HR PRN Severe Pain (Scale 7 to 10) Sodium Chloride 1,000 mls @ 75 mls/hr 07/10/24 02:45 07/28/24 09:52 Saline 0.9% IV Not Given .[id number] EDEN Daptomycin 250 mg/ Sodium 50 mls @ 100 mls/hr 07/23/24 09:00 07/28/24 08:16 Chloride IVPB 100 mls/hr Q24HR EDEN Administration Protocol Lactated Ringer's 1,000 mls @ 20 mls/hr 07/25/24 06:02 07/28/24 06:45 Lactated Ringers IV Not Given .Q24H EDEN Magnesium Oxide 400 mg 07/28/24 11:45 Magnesium Oxide 400 Mg Tab PO 07/28/24 22:01 TID EDEN Methocarbamol 750 mg 07/12/24 12:03 07/21/24 23:48 Methocarbamol 750 Mg Tab PO 750 mg QID PRN Administration Muscle Spasm Miscellaneous Information 1 each 07/21/24 13:51 Potassium Replacement Protocol 1 Each Misc MISCELLANE DAILY PRN Per Protocol Protocol Miscellaneous Information 1 each 07/24/24 10:21 Potassium Replacement Protocol 1 Each Misc MISCELLANE DAILY PRN Per Protocol Protocol Morphine Sulfate 15 mg 07/26/24 12:47 07/28/24 09:05 Morphine Sulfate Ir 15 Mg Tablet PO 15 mg Q6HR PRN Administration Pain Naloxone HCl 0.2 mg 07/10/24 02:33 Naloxone 0.4 Mg/Ml 1 Ml Vial IV Q2M PRN Opioid Reversal Nicotine 1 patch 07/21/24 09:00 07/28/24 08:15 Nicotine 14mg/24hr Patch TRANSDERM 1 patch DAILY EDEN Administration Buprenorphine [ 1 each 07/12/24 09:00 07/26/24 09:33 Butrans 7.5 Mcg/Hr] TRANSDERM Not Given 7.5 Mcg/Hour Patch FR EDEN Nystatin 1 applic 07/18/24 14:00 07/28/24 08:16 Nystatin 100,000 Unit/Gm Powd 15 Gm TOPICAL 1 applic BID EDEN Administration Protocol Ondansetron HCl 4 mg 07/17/24 20:51 07/17/24 22:08 Ondansetron 4 Mg/2 Ml Vial IVP 4 mg Q6HR PRN Administration Nausea And Vomiting Pantoprazole Sodium 40 mg 07/23/24 14:15 07/28/24 08:16 Pantoprazole 40 Mg Tablet PO 40 mg [id number] EDEN Administration Petrolatum 1 applic 07/17/24 23:42 Zinc Oxide Paste (Z-Guard) 1 Applic TOPICAL Q2HR PRN Wound Healing Protocol Polyethylene Glycol 17 gm 07/10/24 21:00 07/26/24 19:54 Polyethylene Glycol 3350 17 Gm Powd.Pack PO 17 gm MOWEFR@2100 EDEN Administration Senna/Docusate Sodium 1 each 07/10/24 12:45 07/28/24 08:16 Sennosides-Docusate Sodium 1 Each Tab PO 1 each DAILY EDEN Administration Tetrahydrozoline HCl 1 drops 07/10/24 12:36 Tetrahydrozoline 0.05% Ophth Drops 15 Ml Btl BOTH EYES QID PRN ALLERGIES Objective - Vital Signs Vital signs: Vital Signs Temp 97.6 F 07/28/24 07:45 Pulse 78 07/28/24 07:45 Resp 17 07/28/24 07:45 BP 126/81 07/28/24 07:45 Pulse Ox 94 L 07/28/24 07:45 FiO2 Intake & Output 07/27/24 07/28/24 07/28/24 18:59 06:59 18:59 Output Total 1000 1600 Balance -1000 -1600 Output: Urine 1000 1600 Other: Voiding Method Indwelling Catheter Indwelling Catheter # Bowel Movements 1 - Exam -GENERAL: The patient is alert and oriented x3, not in any acute distress. Well developed, well nourished. Generally weak, obese HEENT: Pupils are round and equally reacting to light. EOMI. No scleral icterus. No conjunctival pallor. Normocephalic, atraumatic. No pharyngeal erythema. No thyromegaly. CARDIOVASCULAR: S1 and S2 present. No murmurs, rubs, or gallops. PULMONARY: Chest is clear to auscultation, no wheezing , no crackles. -ABDOMEN: Soft, nontender, nondistended, normoactive bowel sounds. No palpable organomegaly. Llanes catheter in place -MUSCULOSKELETAL: No joint swelling or deformity. Mid thoracic spine tenderness radiating to both lower rib cage (chronic as per patient). Stage III sacral pressure ulcer EXTREMITIES: No cyanosis, clubbing, or pedal edema. -NEUROLOGICAL: Gross neurological examination did not reveal any focal deficits. Bedbound SKIN: No rashes. no petechiae. - Labs CBC & Chem 7: 07/27/24 07:45 07/27/24 07:45 Assessment and Plan Assessment: Pneumonia secondary to ESBL Klebsiella UTI with hydronephrosis secondary to VRE Abdominal pain status post EGD showing gastritis and colonoscopy showing transv erse colon polyp Chronic back pain radiating to both rib cage she is with history of paraplegia and bedbound x 1 year imaging showing (Extensive surgical fusion hardware of the visualized thoracolumbar spine. This creates streak artifact which limits evaluation. Laminectomy changes at L4-S1. Grade 1 anterolisthesis of L3 on L4 without pars defects. Remote fracture of the T8 vertebral body) Stage III sacral pressure ulcer Chronic bilateral hydronephrosis Left upper extremity lesion status post punch biopsy on 07/19 pending results Generalized weakness History of lung cancer Bilateral lower extremity weakness and radiculopathy secondary to spine disease, evaluated by orthopedic team recommended outpatient follow-up Plan: Recheck chest x-ray Incentive spirometry Increased pain management Continue with daptomycin as per ID team Infectious disease consult General Surgery team consult Follow-up punch biopsy result Continue with pain management Will consult orthopedic team for her back pain. Recommended outpatient follow- up Labs and medication were reviewed.. Continue same treatment. Continue with symptomatic treatment. Resume home medication. Monitor labs and vitals. DVT and GI prophylaxis. Further recommendations as per clinical course of the patie nt DVT prophylaxis: Subcutaneous Lovenox GI Prophylaxis: Protonix PT/OT: Pending Prognosis is guarded
[2024-07-28] MEDS: MAGNESIUM OXIDE 400 MG TAB PO SCH (12:24)
[2024-07-28] MEDS: HYDROmorphone 1 MG/ML 1 ML SYRINGE IVP STA (12:25)
--- NOTE | 2024-07-28 12:51 | XR ---
EXAMINATION TYPE: XR chest 2V DATE OF EXAM: 07/28/2024 11:58 AM COMPARISON: 05/17/2024 CLINICAL INDICATION: Female, 64 years old with history of bilateral lower chest pain, TECHNIQUE: XR chest 2V view(s) obtained. FINDINGS: The heart size is normal. The pulmonary vasculature is normal. There is blunting of the right costophrenic angle. Atelectasis should be considered. Follow-up can be performed. There is some linear opacity in the right suprahilar region, present previously. Fixation pedicle screws and rods through the thoracic spine. IMPRESSION: 1. Right upper lobe and right lateral lung base infiltrates. Correlate for atelectasis. Follow-up is recommended. [facility], , 07/28/2024 12:49 PM
--- NOTE | 2024-07-28 15:17 | P.PN ---
Subjective Progress Note Date: 07/28/24 Principal diagnosis: Reason for follow-up is complicated UTI Patient is a 64-year-old female with a past medical history significant for TIA depression did have history of left heel infected ulcer with osteomyelitis present to the hospital abdominal pain he did have a abdominal CT concerning for bilateral hydronephrosis hydroureter and question of cystitis with urine culture multiple pathogen prompted this consultation. On today's evaluation that is 07/28/2024, the patient continues to be afebrile, the patient is on room air and breathing comfortably, the Pt denies having any chest pain or cough, the patient denies any nausea vomiting circumventing consulted because of discomfort and no diarrhea. No new lab has been repeated today Objective - Vital Signs Vital signs: Vital Signs Temp 97.7 F 07/28/24 14:44 Pulse 98 07/28/24 14:44 Resp 16 07/28/24 14:44 BP 107/72 07/28/24 14:44 Pulse Ox 95 07/28/24 14:44 FiO2 Intake & Output 07/27/24 07/28/24 07/28/24 18:59 06:59 18:59 Output Total 1000 1600 Balance -1000 -1600 Output: Urine 1000 1600 Other: Voiding Method Indwelling Catheter Indwelling Catheter # Bowel Movements 1 - Exam GENERAL DESCRIPTION: An elderly female lying in bed in no distress RESPIRATORY SYSTEM: Unlabored breathing , decreased breath sounds at bases HEART: S1 S2 regular rate and rhythm , ABDOMEN: Soft , no tenderness, patient did have a stage III sacral pressure ulcer wound base looks clean no slough or surrounding redness EXTREMITIES: Left heel stage III ulcer but no slough tissue or surrounding redness - Labs CBC & Chem 7: 07/27/24 07:45 07/27/24 07:45 Assessment and Plan (1) Infection due to ESBL-producing Klebsiella pneumoniae Current Visit: Yes Status: Acute Code(s): A49.8 - OTHER BACTERIAL INFECTIONS OF UNSPECIFIED SITE; Z16.12 - EXTENDED SPECTRUM BETA LACTAMASE (ESBL) RESISTANCE SNOMED Code(s): 417236500 (2) Hydronephrosis Current Visit: Yes Status: Acute Code(s): N13.30 - UNSPECIFIED HYDRONEPHROSIS SNOMED Code(s): 29814128 (3) UTI (urinary tract infection) Current Visit: Yes Status: Acute Code(s): N39.0 - URINARY TRACT INFECTION, SITE NOT SPECIFIED SNOMED Code(s): 17581700 (4) Leukocytosis Current Visit: No Status: Acute Code(s): D72.829 - ELEVATED WHITE BLOOD CELL COUNT, UNSPECIFIED SNOMED Code(s): 544908870 Plan: 1patient presented to hospital with lower abdominal pain she also have significant mental status changes did have elevated white count meeting criteria for symptomatic/complicated UTI with urine culture showing multidrug-resistant pathogen including Pseudomonas he has been Klebsiella and E. coli 2left heel stage III pressure ulcer without cellulitis, patient does have a stage III sacral pressure ulcer, recommend to keep the area of the pressure and treat with a dry Aquacel silver dressing 3patient is afebrile patient urine is growing VRE, CT abdominal pelvis with improving bilateral hydronephrosis no other acute findings reported, 4patient to continue the daptomycin to finish 7-day course of therapy Dictation was produced using [employer] dictation software. please excuse any grammatical, word or spelling errors. Time with Patient: Less than 30
[2024-07-28] MEDS: HYDROmorphone 1 MG/ML 1 ML SYRINGE IVP PRN (17:40)
[2024-07-29 09:30] LABS: Magnesium 1.8 mg/dL (1.5-2.4)
[2024-07-29 09:33] LABS: Blood Urea Nitrogen 6.2 mg/dL (9.0-27.0); Chloride 106 mmol/L (96-109); Glucose 92 mg/dL (70-110); Potassium 3.6 mmol/L (3.5-5.5); Sodium 140 mmol/L (135-145)
[2024-07-29 09:34] LABS: Calcium 8.2 mg/dL (8.7-10.3); Carbon Dioxide 26.7 mmol/L (21.6-31.8)
[2024-07-29 09:37] LABS: Basophils # (A) 0.04 X 10*3/uL (0.00-0.10); Basophils % (A) 0.4 %; Eosinophils # (A) 0.77 X 10*3/uL (0.04-0.35); Eosinophils % (A) 7.6 %; HCT 36.6 % (37.2-46.3); HGB 11.1 g/dL (12.0-15.0); Lymphocytes # (A) 3.05 X 10*3/uL (0.90-5.00); Lymphocytes % (A) 30.1 %; MCH 25.6 pg (27.0-32.0); MCHC 30.3 g/dL (32.0-37.0); MCV 84.5 FL (80.0-97.0); Mean Platelet Volume 10.2 FL (9.5-12.2); Monocytes % (A) 13.8 %; NRBC Per 100 WBC 0.04 X 10*3/uL (0.00-0.01); Neutrophils % (A) 47.4 %; Platelet Count 483 X 10*3/uL (140-440); RBC 4.33 X 10*6/uL (4.10-5.20); RDW 18.2 % (11.5-14.5); WBC 10.13 X 10*3/uL (4.50-10.00)
[2024-07-29] MEDS ORDERED: CYCLOBENZAPRINE 5 MG TAB PO PRN (10:35)
--- NOTE | 2024-07-29 10:36 | P.PN ---
Subjective Progress Note Date: 07/29/24 The patient my stable. She has no acute changes. Her abdomen is soft. Patient will be observed. Objective - Vital Signs Vital signs: Vital Signs Temp 98.0 F 07/29/24 07:15 Pulse 85 07/29/24 07:15 Resp 17 07/29/24 07:15 BP 113/64 07/29/24 07:15 Pulse Ox 93 L 07/29/24 07:15 FiO2 Intake & Output 07/28/24 07/29/24 07/29/24 18:59 06:59 18:59 Output Total 1000 Balance -1000 Output: Urine 1000 Other: Voiding Method Indwelling Catheter Indwelling Catheter Indwelling Catheter # Bowel Movements 1 1 - Labs CBC & Chem 7: 07/29/24 03:30 07/29/24 03:30 Labs: Abnormal Lab Results - Last 24 Hours (Table) 07/29/24 07/29/24 Range/Units 03:30 03:30 WBC 10.13 H (4.50-10.00) X 10*3/uL Hgb 11.1 L (12.0-15.0) g/dL Hct 36.6 L (37.2-46.3) % MCH 25.6 L (27.0-32.0) pg MCHC 30.3 L (32.0-37.0) g/dL RDW 18.2 H (11.5-14.5) % Plt Count 483 H (140-440) X 10*3/uL Immature Gran # 0.07 H (0.00-0.04) X 10*3/uL Monocytes # 1.40 H (0.20-1.00) X 10*3/uL Eosinophils # 0.77 H (0.04-0.35) X 10*3/uL NRBC/100 WBC Diff 0.04 H (0.00-0.01) X 10*3/uL BUN 6.2 L (9.0-27.0) mg/dL Creatinine 0.4 L (0.6-1.5) mg/dL Calcium 8.2 L (8.7-10.3) mg/dL
--- NOTE | 2024-07-29 10:38 | P.PN ---
Subjective This is a 64-year-old female who has been here for quite some time continues to report significant abdominal pain being followed by multiple consultations initially admitted for UTI with hydronephrosis and severe eosinophilia. Patient continues to have persistent abdominal pain and repeat CAT scan was performed. Patient's urine culture repeat is now showing VRE with infectious disease following. Urology has been following regarding hydronephrosis and discussing possible cystoscopy with retrograde although is canceling as hydronephrosis has improved with an indwelling Llanes catheter and recommend to continue with antibiotics per ID recommendations along with continued indwelling Llanes catheter. Patient is continued on antibiotics in the form of daptomycin with infectious disease following closely. Potassium low at 2.9 and will replace per protocol and follow-up on repeat labs. 07/25/2024 Patient is seen in follow-up this morning and is lethargic although arousable reporting some improvement in abdominal pain. Patient was reevaluated by urology with no plans of cystoscopy at this time as patient's hydronephrosis has resolved with indwelling Llanes catheter and will continue. Patient urine culture showing VRE with infectious disease following and will need a midline for outpatient IV antibiotic therapy to be arranged. Case management following and will discuss discharge planning. Follow-up potassium is improved and we will continue to monitor closely and follow-up labs in AM. Recommend PT/OT therapy evaluation. Patient is afebrile with no reported chest pain or shortness of breath. Patient reports is tolerating diet and denies nausea or vomiting at this time. 07/26/2024 Patient is seen in follow-up today feels slightly improved more awake sitting up in the bed. Patient is maintained on IV antibiotics with infectious disease following and will continue with outpatient antibiotics via midline in the form of daptomycin for an additional week on discharge. Patient is afebrile white count has normalized although patient continues to report diffuse upper epigastric abdominal pain. Potassium slightly low at 2.9 being replaced per protocol will follow-up with repeat labs. Patient reports no chest pain or shortness of breath. Patient reports to tolerating diet with no much of an appetite but denies any nausea or vomiting at this time. 07/27 This is a pleasant 64 years old female who has been treated currently for pneumonia secondary to ESBL Klebsiella and UTI with hydronephrosis secondary to VRE she is getting IV daptomycin infusion with ID team following closely Since Llanes catheter was placed here in the hospital it looks like hydronephrosis is improving as patient has some evidence of obstructive uropathy. Patient is awake alert states she is bedbound for about a year since she had avilez rgery at [facility] in her back. She still have chronic middle back tenderness radiating to both rib cage inferiorly. Her pain is 8/10 last year and today is the same. No tingling or numbness. Also she denies nausea vomiting, she eats fine. She denies any other abdominal pain other than lower rib cage pain and back pain mentioned above No issues with bowel movement or diarrhea Patient states that she came from home, after the surgery she has to stay in rehab for several months she went home for about 1 month where her daughter was taking care of her before she got sick this time and came back to this facility. Patient expected to go to rehab then upon discharge Currently she is getting normal sinus 75 mL/h Wound people also following the patient for stage III sacral pressure ulcer Thoracic and lumbar x-ray on admission showing postsurgical changes with hardware intact and grade 1 anterolisthesis of L3 on L4 CT of the abdomen and pelvis done on admission showing no acute osseous abnormality. Extensive surgical fusion hardware of the visualized thoracolumbar spine. This creates streak artifact which limits evaluation. Laminectomy changes at L4-S1. Grade 1 anterolisthesis of L3 on L4 without pars defects. Remote fracture of the T8 vertebral body 07/28 Patient states she is little worse today complaining from more pain in both lower rib cages about the same area as of yesterday but more severe However her back pain is the same 8/10 She ate little bit today but had good bowel movement and abdomen not distended Her urine and breathing is fine as she states Orthopedic team thinks her back pain from previous surgeries and fusion is chronic and has chronic radiculopathy and weakness in the lower extremity and recommended no surgical intervention and follow-up as an outpatient. Will increase her Dilaudid for better pain control and check chest x-ray today. Add magnesium oxide for 3 doses and check magnesium and labs in the morning 07/29 Patient today finishing her antibiotics either today or tomorrow with daptomycin for her ESBL Klebsiella pneumonia and UTI. Patient already evaluated by urologist and recommended outpatient follow-up with Dr. Savage for her bilateral hydronephrosis and other UTI. Also she status post left upper extremity punch biopsy for lesion pending the results Patient complaining from little breathing difficulty chest x-ray yesterday showing atelectasis with right and upper and lower infiltrate. Patient just finished antibiotics and likely patient has infection. Will check proBNP. Discontinue normal sinus 75 mL/h. She is currently on room air with no respiratory distress. Incentive spirometry at bedside and patient encouraged to visit Her main concern is her back pain she states she had it since she had back fracture about 1 year ago on August 2023, but getting worse lately and is radiating to both lower rib cage. Patient at baseline is bedbound and she is from [facility]. Patient aware that orthopedic team evaluate her in the hospital and he wants here in the office and she plan to follow-up with them in 1 week as instructed. Will discontinue the 1 mg IV Dilaudid and start her on Charlotte and Flexeril. Also she is on long-acting morphine 15 mg twice daily. Discussed with staff Possible discharge 24 to 48 hours Active Medications Generic Name Dose Route Start Last Admin Trade Name Freq PRN Reason Stop Dose Admin Acetaminophen 500 mg 07/10/24 12:36 07/27/24 18:16 Acetaminophen Tab 500 Mg Tab PO 500 mg Q6H PRN Administration Mild Pain Hydrocodone Bitart/Acetaminophen 1 each 07/29/24 10:34 Hydrocodone/Apap 5-325mg 1 Each Tab PO 07/29/24 10:35 ONCE STA Hydrocodone Bitart/Acetaminophen 1 each 07/29/24 10:34 Hydrocodone/Apap 5-325mg 1 Each Tab PO Q6HR PRN Pain Al Hydroxide/Mg Hydroxide 30 ml 07/10/24 12:36 07/23/24 10:59 Mag Hydrox/Al Hydrox/Simeth 30 Ml Cup PO 30 ml Q6H PRN Administration GI Upset Alprazolam 0.5 mg 07/11/24 14:30 07/28/24 03:07 Alprazolam 0.5 Mg Tab PO 0.5 mg TID PRN Administration Anxiety Calamine 1 applic 07/16/24 18:29 Calamine/Zinc Oxide Lotion 177 Ml Btl TOPICAL BID PRN Skin Irritation Protocol Cyclobenzaprine HCl 5 mg 07/11/24 09:00 07/23/24 12:51 Cyclobenzaprine 5 Mg Tab PO 5 mg BID@0900,1200 PRN Administration Muscle Spasm Diphenhydramine HCl 25 mg 07/17/24 12:12 07/27/24 21:29 Diphenhydramine 25 Mg Cap PO 25 mg Q8HR PRN Administration Itching Duloxetine HCl 60 mg 07/10/24 21:00 07/29/24 08:43 Duloxetine Hcl 60 Mg Capsule.Dr PO 60 mg BID EDEN Administration Enoxaparin Sodium 40 mg 07/11/24 09:00 07/29/24 08:45 Enoxaparin 40 Mg/0.4 Ml Syringe SQ 40 mg DAILY EDEN Administration Hydromorphone HCl 0.5 mg 07/20/24 15:28 07/28/24 06:02 Hydromorphone 0.5 Mg/0.5 Ml Syringe IVP 0.5 mg Q6HR PRN Administration Severe Pain (Scale 7 to 10) Daptomycin 250 mg/ Sodium 50 mls @ 100 mls/hr 07/23/24 09:00 07/29/24 08:44 Chloride IVPB 100 mls/hr Q24HR EDEN Administration Protocol Lactated Ringer's 1,000 mls @ 20 mls/hr 07/25/24 06:02 07/29/24 06:50 Lactated Ringers IV Not Given .Q24H EDEN Methocarbamol 750 mg 07/12/24 12:03 07/21/24 23:48 Methocarbamol 750 Mg Tab PO 750 mg QID PRN Administration Muscle Spasm Miscellaneous Information 1 each 07/21/24 13:51 Potassium Replacement Protocol 1 Each Misc MISCELLANE DAILY PRN Per Protocol Protocol Miscellaneous Information 1 each 07/24/24 10:21 Potassium Replacement Protocol 1 Each Misc MISCELLANE DAILY PRN Per Protocol Protocol Morphine Sulfate 15 mg 07/26/24 12:47 07/29/24 06:03 Morphine Sulfate Ir 15 Mg Tablet PO 15 mg Q6HR PRN Administration Pain Naloxone HCl 0.2 mg 07/10/24 02:33 Naloxone 0.4 Mg/Ml 1 Ml Vial IV Q2M PRN Opioid Reversal Nicotine 1 patch 07/21/24 09:00 07/29/24 08:44 Nicotine 14mg/24hr Patch TRANSDERM 1 patch DAILY EDEN Administration Buprenorphine [ 1 each 07/12/24 09:00 07/26/24 09:33 Butrans 7.5 Mcg/Hr] TRANSDERM Not Given 7.5 Mcg/Hour Patch FR EDEN Nystatin 1 applic 07/18/24 14:00 07/29/24 08:46 Nystatin 100,000 Unit/Gm Powd 15 Gm TOPICAL 1 applic BID EDEN Administration Protocol Ondansetron HCl 4 mg 07/17/24 20:51 07/17/24 22:08 Ondansetron 4 Mg/2 Ml Vial IVP 4 mg Q6HR PRN Administration Nausea And Vomiting Pantoprazole Sodium 40 mg 07/23/24 14:15 07/29/24 08:43 Pantoprazole 40 Mg Tablet PO 40 [id number] Administration Petrolatum 1 applic 07/17/24 23:42 Zinc Oxide Paste (Z-Guard) 1 Applic TOPICAL Q2HR PRN Wound Healing Protocol Polyethylene Glycol 17 gm 07/10/24 21:00 07/26/24 19:54 Polyethylene Glycol 3350 17 Gm Powd.Pack PO 17 gm MOWEFR@2100 EDEN Administration Senna/Docusate Sodium 1 each 07/10/24 12:45 07/29/24 08:43 Sennosides-Docusate Sodium 1 Each Tab PO 1 each DAILY EDEN Administration Tetrahydrozoline HCl 1 drops 07/10/24 12:36 Tetrahydrozoline 0.05% Ophth Drops 15 Ml Btl BOTH EYES QID PRN ALLERGIES Objective - Vital Signs Vital signs: Vital Signs Temp 98.0 F 07/29/24 07:15 Pulse 85 07/29/24 07:15 Resp 17 07/29/24 07:15 BP 113/64 07/29/24 07:15 Pulse Ox 93 L 07/29/24 07:15 FiO2 Intake & Output 07/28/24 07/29/24 07/29/24 18:59 06:59 18:59 Output Total 1000 Balance -1000 Output: Urine 1000 Other: Voiding Method Indwelling Catheter Indwelling Catheter Indwelling Catheter # Bowel Movements 1 1 - Exam -GENERAL: The patient is alert and oriented x3, not in any acute distress. Well developed, well nourished. Generally weak, obese HEENT: Pupils are round and equally reacting to light. EOMI. No scleral icterus. No conjunctival pallor. Normocephalic, atraumatic. No pharyngeal erythema. No thyromegaly. CARDIOVASCULAR: S1 and S2 present. No murmurs, rubs, or gallops. PULMONARY: Chest is clear to auscultation, no wheezing , no crackles. -ABDOMEN: Soft, nontender, nondistended, normoactive bowel sounds. No palpable organomegaly. Llanes catheter in place -MUSCULOSKELETAL: No joint swelling or deformity. Mid thoracic spine tenderness radiating to both lower rib cage (chronic as per patient). Stage III sacral pressure ulcer EXTREMITIES: No cyanosis, clubbing, or pedal edema. -NEUROLOGICAL: Gross neurological examination did not reveal any focal deficits. Bedbound SKIN: No rashes. no petechiae. - Labs CBC & Chem 7: 07/29/24 03:30 07/29/24 03:30 Labs: Abnormal Lab Results - Last 24 Hours (Table) 07/29/24 07/29/24 Range/Units 03:30 03:30 WBC 10.13 H (4.50-10.00) X 10*3/uL Hgb 11.1 L (12.0-15.0) g/dL Hct 36.6 L (37.2-46.3) % MCH 25.6 L (27.0-32.0) pg MCHC 30.3 L (32.0-37.0) g/dL RDW 18.2 H (11.5-14.5) % Plt Count 483 H (140-440) X 10*3/uL Immature Gran # 0.07 H (0.00-0.04) X 10*3/uL Monocytes # 1.40 H (0.20-1.00) X 10*3/uL Eosinophils # 0.77 H (0.04-0.35) X 10*3/uL NRBC/100 WBC Diff 0.04 H (0.00-0.01) X 10*3/uL BUN 6.2 L (9.0-27.0) mg/dL Creatinine 0.4 L (0.6-1.5) mg/dL Calcium 8.2 L (8.7-10.3) mg/dL Assessment and Plan Assessment: Pneumonia secondary to ESBL Klebsiella UTI with hydronephrosis secondary to VRE Abdominal pain status post EGD showing gastritis and colonoscopy showing transverse colon polyp Chronic back pain radiating to both rib cage she is with history of paraplegia and bedbound x 1 year imaging showing (Extensive surgical fusion hardware of the visualized thoracolumbar spine. This creates streak artifact which limits evaluation. Laminectomy changes at L4-S1. Grade 1 anterolisthesis of L3 on L4 without pars defects. Remote fracture of the T8 vertebral body) Stage III sacral pressure ulcer Chronic bilateral hydronephrosis Left upper extremity lesion status post punch biopsy on 07/19 pending results Generalized weakness History of lung cancer Bilateral lower extremity weakness and radiculopathy secondary to spine disease, evaluated by orthopedic team recommended outpatient follow-up Plan: Recheck chest x-ray Reviewed. Check proBNP. Incentive spirometry Increased pain management Continue with daptomycin as per ID team. Patient almost done with her antibiotic Infectious disease consult General Surgery team consult Follow-up punch biopsy result Continue with pain management Will consult orthopedic team for her back pain. Recommended outpatient follow- up Labs and medication were reviewed.. Continue same treatment. Continue with symptomatic treatment. Resume home medication. Monitor labs and vitals. DVT and GI prophylaxis. Further recommendations as per clinical course of the patient DVT prophylaxis: Subcutaneous Lovenox GI Prophylaxis: Protonix PT/OT: Pending Prognosis is guarded Patient instructed to follow-up closely with urologist, orthopedic surgeon upon discharge and she agrees
[2024-07-29] MEDS: HYDROcodone/APAP 5-325MG 1 EACH TAB PO STA (11:02)
--- NOTE | 2024-07-29 15:14 | P.PN ---
Subjective Progress Note Date: 07/29/24 Principal diagnosis: Reason for follow-up is complicated UTI Patient is a 64-year-old female with a past medical history significant for TIA depression did have history of left heel infected ulcer with osteomyelitis present to the hospital abdominal pain he did have a abdominal CT concerning for bilateral hydronephrosis hydroureter and question of cystitis with urine culture multiple pathogen prompted this consultation. On today's evaluation that is 07/29/2024, Patient is afebrile patient is currently on room air and denies having any shortness of breath, the patient denies any chest pain or cough, the patient denies any nausea vomiting has been complaining of some abdominal discomfort pain and wants more pain medication no diarrhea. Patient white count is 10.13, creatinine 0.4 Objective - Vital Signs Vital signs: Vital Signs Temp 98.0 F 07/29/24 07:15 Pulse 85 07/29/24 07:15 Resp 17 07/29/24 07:15 BP 113/64 07/29/24 07:15 Pulse Ox 93 L 07/29/24 07:15 FiO2 Intake & Output 07/28/24 07/29/24 07/29/24 18:59 06:59 18:59 Output Total 1000 950 Balance -1000 -950 Output: Urine 1000 950 Other: Voiding Method Indwelling Catheter Indwelling Catheter Indwelling Catheter # Bowel Movements 1 1 - Exam GENERAL DESCRIPTION: An elderly female lying in bed in no distress RESPIRATORY SYSTEM: Unlabored breathing , decreased breath sounds at bases HEART: S1 S2 regular rate and rhythm , ABDOMEN: Soft , no tenderness, patient did have a stage III sacral pressure ulcer wound base looks clean no slough or surrounding redness EXTREMITIES: Left heel stage III ulcer but no slough tissue or surrounding redness - Labs CBC & Chem 7: 07/29/24 03:30 07/29/24 03:30 Labs: Abnormal Lab Results - Last 24 Hours (Table) 07/29/24 07/29/24 Range/Units 03:30 03:30 WBC 10.13 H (4.50-10.00) X 10*3/uL Hgb 11.1 L (12.0-15.0) g/dL Hct 36.6 L (37.2-46.3) % MCH 25.6 L (27.0-32.0) pg MCHC 30.3 L (32.0-37.0) g/dL RDW 18.2 H (11.5-14.5) % Plt Count 483 H (140-440) X 10*3/uL Immature Gran # 0.07 H (0.00-0.04) X 10*3/uL Monocytes # 1.40 H (0.20-1.00) X 10*3/uL Eosinophils # 0.77 H (0.04-0.35) X 10*3/uL NRBC/100 WBC Diff 0.04 H (0.00-0.01) X 10*3/uL BUN 6.2 L (9.0-27.0) mg/dL Creatinine 0.4 L (0.6-1.5) mg/dL Calcium 8.2 L (8.7-10.3) mg/dL Assessment and Plan (1) Infection due to ESBL-producing Klebsiella pneumoniae Current Visit: Yes Status: Acute Code(s): A49.8 - OTHER BACTERIAL INFECTIONS OF UNSPECIFIED SITE; Z16.12 - EXTENDED SPECTRUM BETA LACTAMASE (ESBL) RESISTANCE SNOMED Code(s): 724218055 (2) Hydronephrosis Current Visit: Yes Status: Acute Code(s): N13.30 - UNSPECIFIED HYDRONEPHROSIS SNOMED Code(s): 39814035 (3) UTI (urinary tract infection) Current Visit: Yes Status: Acute Code(s): N39.0 - URINARY TRACT INFECTION, SITE NOT SPECIFIED SNOMED Code(s): 40354419 (4) Leukocytosis Current Visit: No Status: Acute Code(s): D72.829 - ELEVATED WHITE BLOOD CELL COUNT, UNSPECIFIED SNOMED Code(s): 359609677 Plan: 1patient presented to hospital with lower abdominal pain she also have significant mental status changes did have elevated white count meeting criteria for symptomatic/complicated UTI with urine culture showing multidrug-resistant pathogen including Pseudomonas he has been Klebsiella and E. coli 2left heel stage III pressure ulcer without cellulitis, patient does have a stage III sacral pressure ulcer, recommend to keep the area of the pressure and treat with a dry Aquacel silver dressing 3patient is afebrile patient urine is growing VRE, CT abdominal pelvis with improving bilateral hydronephrosis no other acute findings reported, 4patient advised to continue with the daptomycin while inpatient as has received adequate antibiotic may not need antibiotic on discharge Dictation was produced using [employer] dictation software. please excuse any grammatical, word or spelling errors.
[2024-07-29] MEDS: POTASSIUM CHLORIDE ER 20 MEQ TAB.ER PO ONE (17:01)
[2024-07-29] MEDS: HYDROcodone/APAP 5-325MG 1 EACH TAB PO PRN (21:28)
[2024-07-30] MEDS: HYDROmorphone 1 MG/ML 1 ML SYRINGE IVP STA (10:05)
--- NOTE | 2024-07-30 10:31 | XR ---
EXAMINATION TYPE: XR chest 1V portable DATE OF EXAM: 07/30/2024 10:15 AM COMPARISON: 07/28/2024 CLINICAL INDICATION: Female, 64 years old with history of right lung opacity on last cxr, TECHNIQUE: XR chest 1V portable views of the chest are obtained. FINDINGS: Demonstrated are scattered senescent parenchymal change. Right basilar pleural thickening and/or effusion unchanged. The heart is stable. Hilar and mediastinal structures are within normal limits. Degenerative changes are seen of the dorsal spine. IMPRESSION: 1. Right basilar pleural thickening and/or effusion unchanged. [facility], , 07/30/2024 10:29 AM
--- NOTE | 2024-07-30 12:44 | P.PN ---
Subjective Progress Note Date: 07/30/24 SURGICAL PROGRESS NOTE CHIEF COMPLAINT: UTI HISTORY OF PRESENT ILLNESS: Patient status post EGD and colonoscopy on 07/19/2024 reports gastritis and transverse colon polyp. She is also status post punch bi opsy of left arm skin lesion. Pathology result noted transverse colon tubular adenoma. Rectal biopsy slight and focal hyperplasia. Left arm skin biopsy negative for significant eosinophilia or malignancy. Sun damaged skin with minimal epidermal actinic change. Tolerating diet. Positive bowel movements. No acute changes. Patient complains of back pain and abdominal pain. No new complaints. PHYSICAL EXAM: VITAL SIGNS: Reviewed. GENERAL: Well-developed in no acute distress. ABDOMEN: Soft. Nondistended. NEUROLOGIC: Alert and oriented. Cranial nerves II through XII grossly intact. ASSESSMENT: 1. Abdominal pain across upper abdomen. Status post EGD and colonoscopy reporting gastritis and transverse colon polyp 2. Left arm skin lesion status post punch biopsy PLAN: - Continue PPI - Continue regular diet - Okay to discharge from surgical standpoint when medically cleared [facility] Patient Care Secretary note has been reviewed by physician. Signing provider agrees with the documented findings, assessment, and plan of care. Objective - Vital Signs Vital signs: Vital Signs Temp 98.1 F 07/30/24 07:00 Pulse 90 07/30/24 07:00 Resp 18 07/30/24 07:00 BP 115/78 07/30/24 07:00 Pulse Ox 93 L 07/30/24 07:00 FiO2 Intake & Output 07/29/24 07/30/24 07/30/24 18:59 06:59 18:59 Intake Total 400 Output Total 1950 800 Balance -1550 -800 Intake: Oral 400 Output: Urine 1950 800 Other: Voiding Method Indwelling Catheter Indwelling Catheter Indwelling Catheter # Bowel Movements 1 - Labs CBC & Chem 7: 07/29/24 03:30 07/29/24 03:30 Labs: Abnormal Lab Results - Last 24 Hours (Table) 07/29/24 Range/Units 03:30 NT-Pro-B Natriuret Pep 263 H (0-125) pg/mL
--- NOTE | 2024-07-30 14:52 | P.PN ---
Subjective Progress Note Date: 07/30/24 Principal diagnosis: Reason for follow-up is complicated UTI Patient is a 64-year-old female with a past medical history significant for TIA depression did have history of left heel infected ulcer with osteomyelitis present to the hospital abdominal pain he did have a abdominal CT concerning for bilateral hydronephrosis hydroureter and question of cystitis with urine culture multiple pathogen prompted this consultation. On today's evaluation that is 07/30/2024, patient has been afebrile, patient is breathing comfortably and is currently on room air, patient denies having any chest pain and cough, patient denies nausea vomiting or diarrhea circumventing some abdominal discomfort and wants more pain medication. No new labs were obtained today Objective - Vital Signs Vital signs: Vital Signs Temp 98.1 F 07/30/24 07:00 Pulse 90 07/30/24 07:00 Resp 18 07/30/24 07:00 BP 115/78 07/30/24 07:00 Pulse Ox 93 L 07/30/24 07:00 FiO2 Intake & Output 07/29/24 07/30/24 07/30/24 18:59 06:59 18:59 Intake Total 400 Output Total 1950 800 Balance -1550 -800 Intake: Oral 400 Output: Urine 1950 800 Other: Voiding Method Indwelling Catheter Indwelling Catheter Indwelling Catheter # Bowel Movements 1 - Exam GENERAL DESCRIPTION: An elderly female lying in bed in no distress RESPIRATORY SYSTEM: Unlabored breathing , decreased breath sounds at bases HEART: S1 S2 regular rate and rhythm , ABDOMEN: Soft , no tenderness, patient did have a stage III sacral pressure ulcer wound base looks clean no slough or surrounding redness EXTREMITIES: Left heel stage III ulcer but no slough tissue or surrounding redness - Labs CBC & Chem 7: 07/29/24 03:30 07/29/24 03:30 Labs: Abnormal Lab Results - Last 24 Hours (Table) 07/29/24 Range/Units 03:30 NT-Pro-B Natriuret Pep 263 H (0-125) pg/mL Assessment and Plan (1) Infection due to ESBL-producing Klebsiella pneumoniae Current Visit: Yes Status: Acute Code(s): A49.8 - OTHER BACTERIAL INFECTIONS OF UNSPECIFIED SITE; Z16.12 - EXTENDED SPECTRUM BETA LACTAMASE (ESBL) RESISTANCE SNOMED Code(s): 526460608 (2) Hydronephrosis Current Visit: Yes Status: Acute Code(s): N13.30 - UNSPECIFIED HYDRONEPHROSIS SNOMED Code(s): 05048694 (3) UTI (urinary tract infection) Current Visit: Yes Status: Acute Code(s): N39.0 - URINARY TRACT INFECTION, SITE NOT SPECIFIED SNOMED Code(s): 20911918 (4) Leukocytosis Current Visit: No Status: Acute Code(s): D72.829 - ELEVATED WHITE BLOOD CELL COUNT, UNSPECIFIED SNOMED Code(s): 124209191 Plan: 1patient presented to hospital with lower abdominal pain she also have significant mental status changes did have elevated white count meeting criteria for symptomatic/complicated UTI with urine culture showing multidrug-resistant pathogen including Pseudomonas he has been Klebsiella and E. coli 2left heel stage III pressure ulcer without cellulitis, patient does have a stage III sacral pressure ulcer, recommend to keep the area of the pressure and treat with a dry Aquacel silver dressing 3patient is afebrile patient urine is growing VRE, CT abdominal pelvis with improving bilateral hydronephrosis no other acute findings reported, 4patient has completed a 7-day course of daptomycin for the VRE UTI and was discontinued this morning will be monitored closely off antibiotic therapy at this point Dictation was produced using gripNote dictation software. please excuse any grammatical, word or spelling errors.
--- NOTE | 2024-07-31 02:29 | P.CNPUL ---
History of Present Illness Consult date: 07/31/24 Requesting physician: Guido Page Reason for consult: pleural effusion Chief complaint: Abdominal pain History of present illness: Patient is a 64-year-old female with past medical history significant for hypertension, lung cancer status post chemoradiation, former tobacco smoker, previous splenectomy, nephrolithiasis, previous UTIs, multiple orthopedic surgeries. Currently, resides at [facility]. She is debilitated, no longer can ambulate without assistance. Presented to the emergency department back on 07/09/2024 with the chief complaint of upper abdominal pain. Workup in the emergency department including an abdominal/pelvis CT remarkable for bilateral hydronephrosis with moderate bilateral hydroureter extending to the urinary bladder. Nonobstructive bilateral renal calculi. Diffuse wall thickening through the urinary bladder, possible cystitis. Small right pleural effusion. She did have an indwelling urinary catheter placed. Urine culture positive for Pseudomonas aeruginosa, ESBL producing Klebsiella pneumonia, and E. coli. Follow-up urine culture from 07/20/2024 positive for vancomycin-resistant Enterococcus. Patient treated with IV daptomycin by infectious disease. Chest CT angiogram redemonstrated the right-sided pleural effusion. Medial right lower lobe consolidation and chronic bronchitic changes. No evidence of filling defects consistent with PE. Most recent labs from 07/29/2024 including a CBC with a WBC count of 10.1, hemoglobin 11.1, hematocrit 36.6, platelets 43. CMP: Sodium 140, potassium 3.6, chloride 106, serum bicarb 27, BUN 6.2, creatinine 0.4, glucose 92. Previous procalcitonin level less than 0.02. NT proBNP 263. Most recent chest x-ray continues to show right-sided pleural effusion. For this reason, a pulmonary consult was placed. Patient currently being evaluated on the medical surgical unit. On room air. She denies any pulmonary complaints. Denies any shortness of breath, cough, sputum production, hemoptysis, chest pain. Denies any fevers or chills. Reportedly has history of lung cancer and is status post chemo/radiation. States she does not currently follow with an oncologist. Denies history of heart failure. Denies chest pain, heart palpitation, lower extremity edema. Continues to have epigastric abdomi nal pain. Denies any nausea, vomiting, diarrhea. Denies any melena or hematochezia. Did undergo EGD/colonoscopy remarkable for antral gastritis and transverse colon polyps. vital signs are stable. Review of Systems Constitutional: Reports fatigue, Denies chills, Denies fever, Denies night sweats, Denies poor appetite, Denies weight gain, Denies weight loss Ears, nose, mouth and throat: Denies headache, Denies nasal congestion, Denies nasal discharge, Denies post-nasal drip, Denies sinus pain, Denies sinus pressure, Denies sore throat Cardiovascular: Denies chest pain, Denies leg edema, Denies lightheadedness, Denies orthopnea, Denies palpitations, Denies paroxysmal nocturnal dyspnea, Denies syncope Respiratory: Reports as per HPI Gastrointestinal: Reports as per HPI Genitourinary: Reports incomplete emptying, Denies dysuria, Denies hematuria, Denies urinary frequency Musculoskeletal: Denies limitation of motion Integumentary: Reports wounds, Denies rash Neurological: Reports seizures, Reports syncope Psychiatric: Reports anxiety, Denies depression Past Medical History Past Medical History: Cancer, Hearing Disorder / Deafness Additional Past Medical History / Comment(s): back pain; "several tia's-Last TIA 1 1/2 YEARS AGO, pluerisy, migraines, past falls, "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 lung cancer History of Any Multi-Drug Resistant Organisms: ESBL, VRE Date of last positivie culture/infection: 07/20/24-VRE; 07/10/24-ESBL MDRO Source:: VRE-urine; ESBL-urine Past Surgical History: Back Surgery, Breast Surgery, Cholecystectomy, Hysterectomy Additional Past Surgical History / Comment(s): back sx, neck sx. spleenectomy- d/t injury; benign R Breast lumpectomy, sinus sx Past Anesthesia/Blood Transfusion Reactions: No Reported Reaction Additional Past Anesthesia/Blood Transfusion Reaction / Comment(s): Pt hs clausterphobia Past Psychological History: Depression Smoking Status: Former smoker Past Alcohol Use History: None Reported Past Drug Use History: None Reported - Past Family History Mother Family Medical History: Cancer Additional Family Medical History / Comment(s): Father History Unknown: Yes Family Medical History: No Reported History Additional Family Medical History / Comment(s): Father was murdered Medications and Allergies Home Medications Medication Instructions Recorded Confirmed Type ALPRAZolam [Xanax] 0.5 mg PO TID PRN 05/24/24 07/10/24 History Cyclobenzaprine [Flexeril] 5 mg PO BID@0900,1200 PRN 05/24/24 07/10/24 History Acetaminophen [Tylenol Extra 500 mg PO Q6H PRN 07/10/24 07/10/24 History Strength] Amino Acids/Protein Hydrolys 30 ml PO DAILY 07/10/24 07/10/24 History [Pro-Stat Awc Liquid] Baclofen 10 mg PO DAILY 07/10/24 07/10/24 History Buprenorphine [Butrans 7.5 MCG/HR] 1 patch TRANSDERM FR 07/10/24 07/10/24 History DULoxetine HCL [Cymbalta] 60 mg PO BID 07/10/24 07/10/24 History Ensure 1 can PO BID@0900,1700 07/10/24 07/10/24 History Mag Hydrox/Aluminum Hyd/Simeth 30 ml PO Q6H PRN 07/10/24 07/10/24 History [Mylanta Maximum Strength Liq] Morphine Sulfate Ir [MSIR] 15 mg PO Q6HR PRN 07/10/24 07/10/24 History Sennosides/Docusate Sodium [Senna 1 tab PO DAILY 07/10/24 07/10/24 History Plus 8.6-50 mg Tablet] Tetrahydrozoline 0.05% Ophth 1 drop BOTH EYES QID PRN 07/10/24 07/10/24 History [Visine Eye Drops] hydrALAZINE HCL [Apresoline] 50 mg PO TID PRN 07/10/24 07/10/24 History polyethylene glycoL 3350 [Miralax] 17 gm PO MOWEFR@2100 07/10/24 07/10/24 History Allergies Allergy/AdvReac Type Severity Reaction Status Date / Time gentamicin Allergy Anaphylaxis Verified 07/10/24 09:23 Iodinated Contrast Media Allergy Rash/Hives Verified 07/10/24 09:23 Physical Exam Vitals: Vital Signs Temp Pulse Resp BP Pulse Ox 07/30/24 19:20 97.9 F 88 17 113/63 92 L 07/30/24 15:00 98.1 F 84 109/69 94 L 07/30/24 07:00 98.1 F 90 18 115/78 93 L 07/30/24 02:06 97.8 F 86 17 128/81 93 L Intake and Output 07/30/24 07/30/24 07/31/24 14:59 22:59 06:59 Output Total 700 Balance -700 Output: Urine 700 Other: Voiding Method Indwelling Catheter Indwelling Catheter # Bowel Movements 1 GENERAL EXAM: Alert, 64-year-old obese female, comfortable in no apparent distress. HEAD: Normocephalic and atraumatic EYES: Normal reaction of pupils, equal size. NOSE: Clear with pink turbinates. THROAT: No erythema or exudates. NECK: No masses, no JVD. CHEST: No chest wall deformity. LUNGS: Equal air entry with no crackles, wheeze, rhonchi or dullness. On room air. No conversational dyspnea or accessory muscle use.. CVS: S1 and S2 normal with no audible murmur, regular rhythm. No extra heart sounds ABDOMEN: No hepatosplenomegaly, active bowel sounds, no guarding or rigidity. SPINE: No scoliosis or deformity SKIN: No rashes CENTRAL NERVOUS SYSTEM: No focal deficits, tone is normal in all 4 extremities. EXTREMITIES: There is no peripheral edema, clubbing, or cyanosis. Peripheral pulses are intact. Left foot/heel is bandaged. Results - Laboratory Findings CBC and BMP: 07/29/24 03:30 07/29/24 03:30 Abnormal lab findings: Abnormal Labs 07/09/24 07/09/24 07/10/24 21:01 21:01 01:09 WBC 11.61 H RBC Hgb 11.6 L Hct 35.1 L MCV 78.0 L MCH 25.8 L MCHC RDW Plt Count MPV Immature Gran # 0.05 H Neutrophils # Neutrophils # (Manual) Lymphocytes # (Manual) Monocytes # 1.72 H Monocytes # (Manual) Eosinophils # 0.78 H Basophils # Basophils # (Manual) NRBC/100 WBC Diff Macrocytosis (manual) Sodium 136 L Potassium 3.2 L Chloride Carbon Dioxide Anion Gap BUN Creatinine BUN/Creatinine Ratio Glucose Calcium Magnesium Iron Transferrin Total Bilirubin AST 60 H NT-Pro-B Natriuret Pep Albumin 2.9 L Globulin Albumin/Globulin Ratio Urine Appearance Turbid H Urine Protein 1+ H Urine Blood Moderate H Ur Leukocyte Esterase Large H Urine RBC 16 H Urine WBC >182 H Urine WBC Clumps Moderate H Urine Bacteria Few H Urine Mucus Rare H Urine Yeast (Budding) Few H 07/11/24 07/11/24 07/13/24 04:17 04:17 00:54 WBC 15.36 H RBC 4.04 L Hgb 10.2 L Hct 32.9 L MCV MCH 25.2 L MCHC 31.0 L RDW 18.5 H Plt Count 483 H MPV Immature Gran # Neutrophils # Neutrophils # (Manual) Lymphocytes # (Manual) Monocytes # Monocytes # (Manual) Eosinophils # Basophils # Basophils # (Manual) NRBC/100 WBC Diff Macrocytosis (manual) Sodium Potassium Chloride Carbon Dioxide Anion Gap BUN Creatinine BUN/Creatinine Ratio 25.83 H Glucose Calcium 8.4 L Magnesium Iron Transferrin Total Bilirubin AST NT-Pro-B Natriuret Pep Albumin Globulin Albumin/Globulin Ratio Urine Appearance Turbid H Urine Protein Urine Blood Small H Ur Leukocyte Esterase Large H Urine RBC 28 H Urine WBC 70 H Urine WBC Clumps Urine Bacteria Many H Urine Mucus Rare H Urine Yeast (Budding) 07/13/24 07/13/24 07/14/24 04:34 04:34 06:19 WBC 15.05 H RBC Hgb 11.0 L Hct 36.1 L MCV MCH 24.5 L MCHC 30.5 L RDW 18.6 H Plt Count 519 H MPV Immature Gran # Neutrophils # Neutrophils # (Manual) 7.98 H Lymphocytes # (Manual) 5.27 H Monocytes # Monocytes # (Manual) 1.50 H Eosinophils # Basophils # Basophils # (Manual) 0.15 H NRBC/100 WBC Diff Macrocytosis (manual) Sodium Potassium 3.1 L 2.9 L Chloride Carbon Dioxide Anion Gap BUN Creatinine 0.5 L BUN/Creatinine Ratio 23.20 H Glucose Calcium 8.5 L Magnesium Iron Transferrin Total Bilirubin AST NT-Pro-B Natriuret Pep Albumin Globulin Albumin/Globulin Ratio Urine Appearance Urine Protein Urine Blood Ur Leukocyte Esterase Urine RBC Urine WBC Urine WBC Clumps Urine Bacteria Urine Mucus Urine Yeast (Budding) 07/15/24 07/15/24 07/16/24 03:05 04:25 03:33 WBC 13.50 H 14.36 H RBC Hgb 11.4 L 11.2 L Hct 37.0 L MCV MCH 25.2 L 25.1 L MCHC 30.8 L 29.9 L RDW 19.0 H 19.9 H Plt Count 448 H 534 H MPV 9.1 L Immature Gran # 0.11 H 0.18 H Neutrophils # Neutrophils # (Manual) Lymphocytes # (Manual) Monocytes # 1.71 H 1.63 H Monocytes # (Manual) Eosinophils # 0.65 H 1.09 H Basophils # 0.12 H Basophils # (Manual) NRBC/100 WBC Diff Macrocytosis (manual) Sodium Potassium 2.9 L Chloride Carbon Dioxide 20 L Anion Gap BUN Creatinine 0.49 L BUN/Creatinine Ratio Glucose 168 H Calcium Magnesium Iron Transferrin Total Bilirubin AST NT-Pro-B Natriuret Pep Albumin Globulin Albumin/Globulin Ratio Urine Appearance Urine Protein Urine Blood Ur Leukocyte Esterase Urine RBC Urine WBC Urine WBC Clumps Urine Bacteria Urine Mucus Urine Yeast (Budding) 07/16/24 07/17/24 07/17/24 03:33 05:33 05:33 WBC 15.59 H RBC Hgb 10.9 L Hct 33.7 L MCV 79.9 L MCH 25.8 L MCHC RDW 18.9 H Plt Count 512 H MPV Immature Gran # 0.18 H Neutrophils # 8.30 H Neutrophils # (Manual) Lymphocytes # (Manual) Monocytes # 2.06 H Monocytes # (Manual) Eosinophils # 1.09 H Basophils # Basophils # (Manual) NRBC/100 WBC Diff Macrocytosis (manual) Sodium 135 L 136 L Potassium Chloride 108 H Carbon Dioxide 19 L Anion Gap BUN Creatinine 0.49 L 0.49 L BUN/Creatinine Ratio Glucose 101 H Calcium 8.3 L Magnesium Iron Transferrin Total Bilirubin AST NT-Pro-B Natriuret Pep Albumin Globulin Albumin/Globulin Ratio Urine Appearance Urine Protein Urine Blood Ur Leukocyte Esterase Urine RBC Urine WBC Urine WBC Clumps Urine Bacteria Urine Mucus Urine Yeast (Budding) 07/18/24 07/18/24 07/19/24 04:22 10:42 06:05 WBC 12.25 H 12.36 H RBC Hgb 10.7 L 10.6 L Hct 34.4 L 32.9 L MCV 78.9 L MCH 25.7 L 25.4 L MCHC 31.1 L RDW 19.5 H 18.4 H Plt Count 484 H 515 H MPV Immature Gran # 0.14 H 0.15 H Neutrophils # Neutrophils # (Manual) Lymphocytes # (Manual) Monocytes # 1.63 H 1.73 H Monocytes # (Manual) Eosinophils # 0.92 H 0.92 H Basophils # Basophils # (Manual) NRBC/100 WBC Diff Macrocytosis (manual) 2+ A Sodium Potassium Chloride Carbon Dioxide Anion Gap BUN Creatinine BUN/Creatinine Ratio Glucose Calcium Magnesium Iron 33 L Transferrin 177.0 L Total Bilirubin AST NT-Pro-B Natriuret Pep Albumin Globulin Albumin/Globulin Ratio Urine Appearance Urine Protein Urine Blood Ur Leukocyte Esterase Urine RBC Urine WBC Urine WBC Clumps Urine Bacteria Urine Mucus Urine Yeast (Budding) 07/19/24 07/20/24 07/20/24 06:05 04:22 16:26 WBC 13.54 H RBC Hgb 10.6 L Hct 35.2 L MCV MCH 24.9 L MCHC 30.1 L RDW 18.6 H Plt Count 557 H MPV Immature Gran # 0.05 H Neutrophils # 9.98 H Neutrophils # (Manual) Lymphocytes # (Manual) Monocytes # 1.12 H Monocytes # (Manual) Eosinophils # 0 L Basophils # Basophils # (Manual) NRBC/100 WBC Diff Macrocytosis (manual) Sodium Potassium 3.3 L Chloride Carbon Dioxide Anion Gap BUN 3 L Creatinine 0.46 L BUN/Creatinine Ratio Glucose Calcium Magnesium Iron Transferrin Total Bilirubin AST NT-Pro-B Natriuret Pep Albumin Globulin Albumin/Globulin Ratio Urine Appearance Cloudy H Urine Protein Urine Blood Ur Leukocyte Esterase Large H Urine RBC Urine WBC >182 H Urine WBC Clumps Urine Bacteria Rare H Urine Mucus Rare H Urine Yeast (Budding) 07/21/24 07/21/24 07/21/24 03:14 03:14 16:49 WBC 13.05 H RBC Hgb 10.3 L Hct 34.6 L MCV MCH 25.1 L MCHC 29.8 L RDW 18.8 H Plt Count 526 H MPV Immature Gran # Neutrophils # Neutrophils # (Manual) Lymphocytes # (Manual) Monocytes # 1.76 H Monocytes # (Manual) Eosinophils # Basophils # Basophils # (Manual) NRBC/100 WBC Diff Macrocytosis (manual) Sodium Potassium 3.0 L 3.4 L Chloride Carbon Dioxide Anion Gap BUN 4.8 L Creatinine 0.5 L BUN/Creatinine Ratio 9.60 L Glucose Calcium 8.1 L Magnesium Iron Transferrin Total Bilirubin AST NT-Pro-B Natriuret Pep Albumin Globulin Albumin/Globulin Ratio Urine Appearance Urine Protein Urine Blood Ur Leukocyte Esterase Urine RBC Urine WBC Urine WBC Clumps Urine Bacteria Urine Mucus Urine Yeast (Budding) 07/22/24 07/22/24 07/23/24 02:55 06:02 03:34 WBC 12.97 H RBC Hgb Hct MCV MCH 25.6 L 25.5 L MCHC 30.8 L 31.5 L RDW 19.1 H 18.6 H Plt Count MPV Immature Gran # 0.13 H Neutrophils # Neutrophils # (Manual) Lymphocytes # (Manual) Monocytes # 1.38 H 1.39 H Monocytes # (Manual) Eosinophils # 0.51 H 0.48 H Basophils # Basophils # (Manual) NRBC/100 WBC Diff Macrocytosis (manual) Sodium Potassium Chloride 110 H Carbon Dioxide Anion Gap BUN 2 L Creatinine 0.40 L BUN/Creatinine Ratio Glucose Calcium Magnesium Iron Transferrin Total Bilirubin AST NT-Pro-B Natriuret Pep Albumin Globulin Albumin/Globulin Ratio Urine Appearance Urine Protein Urine Blood Ur Leukocyte Esterase Urine RBC Urine WBC Urine WBC Clumps Urine Bacteria Urine Mucus Urine Yeast (Budding) 07/23/24 07/24/24 07/24/24 03:34 04:12 04:12 WBC RBC Hgb 11.8 L Hct MCV MCH 24.9 L MCHC 30.3 L RDW 18.4 H Plt Count 623 H MPV Immature Gran # Neutrophils # Neutrophils # (Manual) Lymphocytes # (Manual) Monocytes # 0.14 L Monocytes # (Manual) Eosinophils # 0 L Basophils # Basophils # (Manual) NRBC/100 WBC Diff Macrocytosis (manual) Sodium Potassium 2.9 L Chloride Carbon Dioxide Anion Gap 13.30 H BUN 5.8 L Creatinine 0.37 L 0.5 L BUN/Creatinine Ratio 11.60 L Glucose 109 H 216 H Calcium 8.3 L 8.2 L Magnesium Iron Transferrin Total Bilirubin 0.2 L AST NT-Pro-B Natriuret Pep Albumin 2.7 L Globulin 3.7 H Albumin/Globulin Ratio 0.73 L Urine Appearance Urine Protein Urine Blood Ur Leukocyte Esterase Urine RBC Urine WBC Urine WBC Clumps Urine Bacteria Urine Mucus Urine Yeast (Budding) 07/27/24 07/27/24 07/29/24 07:45 07:45 03:30 WBC 12.21 H 10.13 H RBC Hgb 11.5 L 11.1 L Hct 36.1 L 36.6 L MCV MCH 25.8 L 25.6 L MCHC 31.9 L 30.3 L RDW 17.8 H 18.2 H Plt Count 531 H D 483 H MPV 8.8 L Immature Gran # 0.07 H 0.07 H Neutrophils # Neutrophils # (Manual) Lymphocytes # (Manual) Monocytes # 1.36 H 1.40 H Monocytes # (Manual) Eosinophils # 0.83 H 0.77 H Basophils # Basophils # (Manual) NRBC/100 WBC Diff 0.04 H Macrocytosis (manual) Sodium Potassium 3.0 L Chloride Carbon Dioxide Anion Gap BUN 6 L Creatinine 0.36 L BUN/Creatinine Ratio Glucose 112 H Calcium 8.3 L Magnesium 1.5 L Iron Transferrin Total Bilirubin AST NT-Pro-B Natriuret Pep Albumin Globulin Albumin/Globulin Ratio Urine Appearance Urine Protein Urine Blood Ur Leukocyte Esterase Urine RBC Urine WBC Urine WBC Clumps Urine Bacteria Urine Mucus Urine Yeast (Budding) 07/29/24 07/29/24 03:30 03:30 WBC RBC Hgb Hct MCV MCH MCHC RDW Plt Count MPV Immature Gran # Neutrophils # Neutrophils # (Manual) Lymphocytes # (Manual) Monocytes # Monocytes # (Manual) Eosinophils # Basophils # Basophils # (Manual) NRBC/100 WBC Diff Macrocytosis (manual) Sodium Potassium Chloride Carbon Dioxide Anion Gap BUN 6.2 L Creatinine 0.4 L BUN/Creatinine Ratio Glucose Calcium 8.2 L Magnesium Iron Transferrin Total Bilirubin AST NT-Pro-B Natriuret Pep 263 H Albumin Globulin Albumin/Globulin Ratio Urine Appearance Urine Protein Urine Blood Ur Leukocyte Esterase Urine RBC Urine WBC Urine WBC Clumps Urine Bacteria Urine Mucus Urine Yeast (Budding) - Diagnostic Findings Chest x-ray: image reviewed CT scan - chest: image reviewed Assessment and Plan Assessment: Small right-sided pleural effusion History of lung cancer, status post chemoradiation Urinary tract infection, urine culture positive for Pseudomonas aeruginosa, ESBL producing Klebsiella, and E. coli. Follow-up urine culture positive for vancomycin-resistant Enterococcus. Previously on IV daptomycin, antibiotics are being managed by ID Urinary retention with indwelling urinary catheter Bilateral hydronephrosis, secondary to above Bilateral nephrolithiasis, nonobstructive Epigastric pain, status post EGD/colonoscopy remarkable for antral gastritis and transverse colon polyps History of splenectomy History of multiple orthopedic surgeries Chronic left heel wound Ex-smoker Obesity, with a BMI of 34 kg/m Pulmonary consultation placed for right-sided pleural effusion or pleural thickening Patient denies any pulmonary complaints Medications, labs, imaging reviewed Chest CT angiogram done previously showing small right pleural effusion with right medial lower lobe consolidation and chronic bronchiectic changes. No obvious pulmonary nodules or mass Procalcitonin level less than 0.02 NT proBNP low Obtain ultrasound of the chest Case to be reviewed with my supervising physician Dr. Haynes, further recommendations to follow I have personally seen and examined the patient, performed the documentation and the assessment and plan as written. Number of minutes spent on the visit:20 This dictation was produced using [employer] dictation software please excuse grammatical errors Time with Patient: Greater than 30
[2024-07-31 03:00] VITALS: PULSE 82
--- NOTE | 2024-07-31 08:26 | US ---
EXAMINATION TYPE: US chest DATE OF EXAM: 07/31/2024 COMPARISON: NONE CLINICAL INDICATION: Female, 64 years old with history of right pleural effusion with markings; right chest pleural effusion. TECHNIQUE: Grayscale imaging of the chest. Targeted ultrasound of the posterior lower right hemithor ax FINDINGS: EXAM MEASUREMENTS: Right Pleural Effusion pocket size: 2.6 cm Right side not marked for thoracentesis. Pulmonologists are able to review the images in the patient?s EMR. IMPRESSIONS: As above [facility], , 07/31/2024 8:24 AM
[2024-07-31] MEDS: CYANOCOBALAMIN 500 MCG TAB PO SCH (09:40)
[2024-07-31 09:54] VITALS: BP 155/97; RESP 18; TEMP 96.8
--- NOTE | 2024-07-31 12:25 | P.PN ---
Subjective Progress Note Date: 07/31/24 SURGICAL PROGRESS NOTE CHIEF COMPLAINT: UTI HISTORY OF PRESENT ILLNESS: Patient status post EGD and colonoscopy on 07/19/2024 reports gastritis and transverse colon polyp. She is also status post punch bi opsy of left arm skin lesion. Pathology result noted transverse colon tubular adenoma. Rectal biopsy slight and focal hyperplasia. Left arm skin biopsy negative for significant eosinophilia or malignancy. Sun damaged skin with minimal epidermal actinic change. Tolerating diet. Positive bowel movements. No new complaints. Patient seen by pulmonary service for right pleural effusion. PHYSICAL EXAM: VITAL SIGNS: Reviewed. GENERAL: in no acute distress. ABDOMEN: Soft. Nondistended. NEUROLOGIC: Alert and oriented. Cranial nerves II through XII grossly intact. ASSESSMENT: 1. Abdominal pain across upper abdomen. Status post EGD and colonoscopy reporting gastritis and transverse colon polyp 2. Left arm skin lesion status post punch biopsy PLAN: - Continue PPI - Continue regular diet - Okay to discharge from surgical standpoint when medically cleared Physician Division Operations Specialist note has been reviewed by physician. Signing provider agrees with the documented findings, assessment, and plan of care. Objective - Vital Signs Vital signs: Vital Signs Temp 96.8 F L 07/31/24 07:00 Pulse 82 07/31/24 07:00 Resp 18 07/31/24 07:00 BP 155/97 07/31/24 07:00 Pulse Ox 96 07/31/24 07:00 FiO2 Intake & Output 07/30/24 07/31/24 07/31/24 18:59 06:59 18:59 Intake Total 1605 Output Total 700 1100 Balance -700 505 Intake: Oral 1605 Output: Urine 700 1100 Other: Voiding Method Indwelling Catheter Indwelling Catheter Indwelling Catheter # Bowel Movements 1 - Labs CBC & Chem 7: 07/29/24 03:30 07/29/24 03:30
--- NOTE | 2024-07-31 12:43 | P.PN ---
Subjective This is a 64-year-old female who has been here for quite some time continues to report significant abdominal pain being followed by multiple consultations initially admitted for UTI with hydronephrosis and severe eosinophilia. Patient continues to have persistent abdominal pain and repeat CAT scan was performed. Patient's urine culture repeat is now showing VRE with infectious disease following. Urology has been following regarding hydronephrosis and discussing possible cystoscopy with retrograde although is canceling as hydronephrosis has improved with an indwelling Llanes catheter and recommend to continue with antibiotics per ID recommendations along with continued indwelling Llanes catheter. Patient is continued on antibiotics in the form of daptomycin with infectious disease following closely. Potassium low at 2.9 and will replace per protocol and follow-up on repeat labs. 07/25/2024 Patient is seen in follow-up this morning and is lethargic although arousable reporting some improvement in abdominal pain. Patient was reevaluated by urology with no plans of cystoscopy at this time as patient's hydronephrosis has resolved with indwelling Llanes catheter and will continue. Patient urine culture showing VRE with infectious disease following and will need a midline for outpatient IV antibiotic therapy to be arranged. Case management following and will discuss discharge planning. Follow-up potassium is improved and we will continue to monitor closely and follow-up labs in AM. Recommend PT/OT therapy evaluation. Patient is afebrile with no reported chest pain or shortness of breath. Patient reports is tolerating diet and denies nausea or vomiting at this time. 07/26/2024 Patient is seen in follow-up today feels slightly improved more awake sitting up in the bed. Patient is maintained on IV antibiotics with infectious disease following and will continue with outpatient antibiotics via midline in the form of daptomycin for an additional week on discharge. Patient is afebrile white count has normalized although patient continues to report diffuse upper epigastric abdominal pain. Potassium slightly low at 2.9 being replaced per protocol will follow-up with repeat labs. Patient reports no chest pain or shortness of breath. Patient reports to tolerating diet with no much of an appetite but denies any nausea or vomiting at this time. 07/27 This is a pleasant 64 years old female who has been treated currently for pneumonia secondary to ESBL Klebsiella and UTI with hydronephrosis secondary to VRE she is getting IV daptomycin infusion with ID team following closely Since Llanes catheter was placed here in the hospital it looks like hydronephrosis is improving as patient has some evidence of obstructive uropathy. Patient is awake alert states she is bedbound for about a year since she had avilez rgery at [facility] in her back. She still have chronic middle back tenderness radiating to both rib cage inferiorly. Her pain is 8/10 last year and today is the same. No tingling or numbness. Also she denies nausea vomiting, she eats fine. She denies any other abdominal pain other than lower rib cage pain and back pain mentioned above No issues with bowel movement or diarrhea Patient states that she came from home, after the surgery she has to stay in rehab for several months she went home for about 1 month where her daughter was taking care of her before she got sick this time and came back to this facility. Patient expected to go to rehab then upon discharge Currently she is getting normal sinus 75 mL/h Wound people also following the patient for stage III sacral pressure ulcer Thoracic and lumbar x-ray on admission showing postsurgical changes with hardware intact and grade 1 anterolisthesis of L3 on L4 CT of the abdomen and pelvis done on admission showing no acute osseous abnormality. Extensive surgical fusion hardware of the visualized thoracolumbar spine. This creates streak artifact which limits evaluation. Laminectomy changes at L4-S1. Grade 1 anterolisthesis of L3 on L4 without pars defects. Remote fracture of the T8 vertebral body 07/28 Patient states she is little worse today complaining from more pain in both lower rib cages about the same area as of yesterday but more severe However her back pain is the same 8/10 She ate little bit today but had good bowel movement and abdomen not distended Her urine and breathing is fine as she states Orthopedic team thinks her back pain from previous surgeries and fusion is chronic and has chronic radiculopathy and weakness in the lower extremity and recommended no surgical intervention and follow-up as an outpatient. Will increase her Dilaudid for better pain control and check chest x-ray today. Add magnesium oxide for 3 doses and check magnesium and labs in the morning 07/29 Patient today finishing her antibiotics either today or tomorrow with daptomycin for her ESBL Klebsiella pneumonia and UTI. Patient already evaluated by urologist and recommended outpatient follow-up with Dr. Savage for her bilateral hydronephrosis and other UTI. Also she status post left upper extremity punch biopsy for lesion pending the results Patient complaining from little breathing difficulty chest x-ray yesterday showing atelectasis with right and upper and lower infiltrate. Patient just finished antibiotics and likely patient has infection. Will check proBNP. Discontinue normal sinus 75 mL/h. She is currently on room air with no respiratory distress. Incentive spirometry at bedside and patient encouraged to visit Her main concern is her back pain she states she had it since she had back fracture about 1 year ago on August 2023, but getting worse lately and is radiating to both lower rib cage. Patient at baseline is bedbound and she is from [facility]. Patient aware that orthopedic team evaluate her in the hospital and he wants here in the office and she plan to follow-up with them in 1 week as instructed. Will discontinue the 1 mg IV Dilaudid and start her on [place]ipt[place] and Flexeril. Also she is on long-acting morphine 15 mg twice daily. Discussed with staff Possible discharge 24 to 48 hours 07/30 Patient doing better today, she finished her antibiotics for her pneumonia and UTI With daptomycin Abdominal pain is improved but patient complaining from bilateral lower end of the rib cage pain looks like radiating from her back in the spine. Patient admits this pain has been coming for more than a year when she had her first surgery but she states it has been getting worse gradually. Patient already evaluated by orthopedic team and they recommended no surgical intervention and follow-up as an outpatient. Patient looks controlled with Tipton Also patient had abnormal chest x-ray, repeat chest x-ray today showing right lower infiltrate suspicious for pleural thickening versus pleural effusion therefore we consulted pulmonary service Other than that she is doing well. Possible discharge tomorrow once cleared by pulmonary service and other consultants. Plan discussed with the patient and she is agreeable Objective - Vital Signs Vital signs: Vital Signs Temp 98.1 F 07/30/24 15:00 Pulse 84 07/30/24 15:00 Resp 18 07/30/24 07:00 BP 109/69 07/30/24 15:00 Pulse Ox 94 L 07/30/24 15:00 FiO2 Intake & Output 07/29/24 07/30/24 07/30/24 18:59 06:59 18:59 Intake Total 400 Output Total 1950 800 700 Balance -1550 -800 -700 Intake: Oral 400 Output: Urine 1950 800 700 Other: Voiding Method Indwelling Catheter Indwelling Catheter Indwelling Catheter # Bowel Movements 1 - Exam -GENERAL: The patient is alert and oriented x3, not in any acute distress. Well developed, well nourished. Generally weak, obese HEENT: Pupils are round and equally reacting to light. EOMI. No scleral icterus. No conjunctival pallor. Normocephalic, atraumatic. No pharyngeal erythema. No thyromegaly. CARDIOVASCULAR: S1 and S2 present. No murmurs, rubs, or gallops. PULMONARY: Chest is clear to auscultation, no wheezing , no crackles. -ABDOMEN: Soft, nontender, nondistended, normoactive bowel sounds. No palpable organomegaly. Llanes catheter in place -MUSCULOSKELETAL: No joint swelling or deformity. Mid thoracic spine tenderness radiating to both lower rib cage (chronic as per patient). Stage III sacral pressure ulcer EXTREMITIES: No cyanosis, clubbing, or pedal edema. -NEUROLOGICAL: Gross neurological examination did not reveal any focal deficits. Bedbound SKIN: No rashes. no petechiae. - Labs CBC & Chem 7: 07/29/24 03:30 07/29/24 03:30 Labs: Abnormal Lab Results - Last 24 Hours (Table) 07/29/24 Range/Units 03:30 NT-Pro-B Natriuret Pep 263 H (0-125) pg/mL Assessment and Plan Assessment: Pneumonia secondary to ESBL Klebsiella UTI with hydronephrosis secondary to VRE Right pleural thickening versus pleural effusion Abdominal pain status post EGD showing gastritis and colonoscopy showing transverse colon polyp Chronic back pain radiating to both rib cage she is with history of paraplegia and bedbound x 1 year imaging showing (Extensive surgical fusion hardware of the visualized thoracolumbar spine. This creates streak artifact which limits ev aluation. Laminectomy changes at L4-S1. Grade 1 anterolisthesis of L3 on L4 without pars defects. Remote fracture of the T8 vertebral body) Stage III sacral pressure ulcer Chronic bilateral hydronephrosis Left upper extremity lesion status post punch biopsy on 07/19 pending results Generalized weakness History of lung cancer Bilateral lower extremity weakness and radiculopathy secondary to spine disease, evaluated by orthopedic team recommended outpatient follow-up Plan: Pulmonary team consult Recheck chest x-ray Reviewed. Check proBNP. Incentive spirometry Increased pain management Continue with daptomycin as per ID team. Patient almost done with her antibioti c Infectious disease consult General Surgery team consult Follow-up punch biopsy result Continue with pain management Will consult orthopedic team for her back pain. Recommended outpatient follow- up Labs and medication were reviewed.. Continue same treatment. Continue with symptomatic treatment. Resume home medication. Monitor labs and vitals. DVT and GI prophylaxis. Further recommendations as per clinical course of the patient DVT prophylaxis: Subcutaneous Lovenox GI Prophylaxis: Protonix PT/OT: Pending Prognosis is guarded Patient instructed to follow-up closely with urologist, orthopedic surgeon upon discharge and she agrees Possible discharge tomorrow if cleared by consultants and remains clinically stable and improving
--- NOTE | 2024-07-31 12:51 | P.DS ---
Providers Date of admission: 07/10/24 02:21 Attending physician: Alfredo Baptiste Consults: 07/10/24 11:46 Consult Physician Routine Consulting Provider: Manuel Husain Consult Reason/Comments: Hydronephrosis Do you want consulting provider notified?: Yes 07/12/24 14:39 Consult Physician Routine Consulting Provider: Amanda Eli Consult Reason/Comments: Polymicrobial UTI Do you want consulting provider notified?: Yes 07/17/24 16:08 Consult Physician Routine Consulting Provider: Ted Lindsay Consult Reason/Comments: eosinophila r/o blood dyscrasia Do you want consulting provider notified?: Yes Consult Physician Urgent Consulting Provider: Reji Clifford Consult Reason/Comments: egd/ colonoscopy Do you want consulting provider notified?: Yes 07/17/24 16:12 Consult Physician Urgent Consulting Provider: zE Espinoza Consult Reason/Comments: hydroureternephrosis, retention, ng?, uti Do you want consulting provider notified?: Yes 07/27/24 11:30 Consult Physician Routine Consulting Provider: Brannon Bautista Consult Reason/Comments: back tenderness radiating to the chest,has surgey one year ago Do you want consulting provider notified?: Yes 07/30/24 10:55 Consult Physician Urgent Consulting Provider: Gopi Haynes Consult Reason/Comments: right pleural effusion or thickening Do you want consulting provider notified?: Yes Primary care physician: [facility] Course: Diagnoses: Pneumonia secondary to ESBL Klebsiella. Finished treatment with IV daptomycin UTI with hydronephrosis secondary to VRE. Finished treatment with daptomycin Bilateral lower rib cage pain and tenderness, chronic secondary to lumbar spinal disease, evaluated by Dr. Bautista with recommendation for follow-up as an outpatient Right pleural thickening versus pleural effusion, chronic, no need for any intervention cleared by pulmonary service. Follow-up as an outpatient Abdominal pain status post EGD showing gastritis and colonoscopy showing transverse colon polyp Chronic back pain radiating to both rib cage she is with history of paraplegia and bedbound x 1 year imaging showing (Extensive surgical fusion hardware of the visualized thoracolumbar spine. This creates streak artifact which limits evaluation. Laminectomy changes at L4-S1. Grade 1 anterolisthesis of L3 on L4 without pars defects. Remote fracture of the T8 vertebral body) Stage III sacral pressure ulcer Chronic bilateral hydronephrosis Left upper extremity lesion status post punch biopsy on 07/19 pending results Generalized weakness History of lung cancer Bilateral lower extremity weakness and radiculopathy secondary to spine disease, evaluated by orthopedic team recommended outpatient follow-up Hospital course: This is a 64-year-old female who has been here for quite some time continues to report significant abdominal pain being followed by multiple consultations initially admitted for UTI with hydronephrosis and severe eosinophili patient was evaluated by ID team and found to have pneumonia and UTI a. Secondary to VRE, she received 7-day course of IV daptomycin. Currently with no chest pain or dyspnea or coughing. No urinary complaint. Patient has Ng catheter in place. Patient believes that this is a chronic Ng catheter. Patient with chronic bilateral hydronephrosis Patient evaluated by urologist and she need to follow-up with her urologist Dr. Espinoza as outpatient Per general surgery patient had EGD found gastritis and colonoscopy on 07/19 showing transverse colon polyp which was removed Patient s/p left upper extremity lesion and biopsy taken by surgery team, result of the biopsy showing skin damage from the sun with solar elastosis. Negative for significant eosinophilia or malignancy Patient also evaluated by pulmonary service and her right lower lung infiltrate, this is looks chronic similar to previous CAT scan therefore no need for any intervention besides patient on room air with no chest pain or dyspnea. Patient cleared for discharge by all consultants including pulmonary, ID team, general surgery team orthopedic and urologist. Patient agreeable for discharge today to rehab Problems and management plan were discussed with the patient and he verbalized understanding and acceptance Patient was found stable and can be discharged home in guarded prognosis however he needs follow-up as an outpatient. Patient was instructed to follow up with PCP within one week and patient agrees Physical exam -Gen: patient is a AAOx3, no distress. Obese CVS: S1-S2, RRR, no murmur Lungs: B/L CTA, no wheezing Abdomen: soft, no distention, no tenderness, positive bowel sounds. Ng catheter in place Extremity: no leg edema or induration Time spent more than 35 minutes Patient Condition at Discharge: Fair Plan - Discharge Summary Discharge Rx Participant: No New Discharge Prescriptions: No Action ALPRAZolam [Xanax] 0.5 mg PO TID PRN PRN Reason: Anxiety Acetaminophen [Tylenol Extra Strength] 500 mg PO Q6H PRN PRN Reason: Pain Tetrahydrozoline 0.05% Ophth [Visine Eye Drops] 1 drop BOTH EYES QID PRN PRN Reason: ALLERGIES Mag Hydrox/Aluminum Hyd/Simeth [Mylanta Maximum Strength Liq] 30 ml PO Q6H PRN PRN Reason: Gi Upset polyethylene glycoL 3350 [Miralax] 17 gm PO MOWEFR@2100 Amino Acids/Protein Hydrolys [Pro-Stat Awc Liquid] 30 ml PO DAILY Cyclobenzaprine [Flexeril] 5 mg PO BID@0900,1200 PRN PRN Reason: Muscle Spasm Morphine Sulfate Ir [MSIR] 15 mg PO Q6HR PRN PRN Reason: Pain hydrALAZINE HCL [Apresoline] 50 mg PO TID PRN PRN Reason: SBP>160 Ensure 1 can PO BID@0900,1700 DULoxetine HCL [Cymbalta] 60 mg PO BID Sennosides/Docusate Sodium [Senna Plus 8.6-50 mg Tablet] 1 tab PO DAILY Buprenorphine [Butrans 7.5 MCG/HR] 1 patch TRANSDERM FR Baclofen 10 mg PO DAILY Discharge Medication List ALPRAZolam [Xanax] 0.5 mg PO TID PRN 05/24/24 [History] Cyclobenzaprine [Flexeril] 5 mg PO BID@0900,1200 PRN 05/24/24 [History] Acetaminophen [Tylenol Extra Strength] 500 mg PO Q6H PRN 07/10/24 [History] Amino Acids/Protein Hydrolys [Pro-Stat Awc Liquid] 30 ml PO DAILY 07/10/24 [History] Baclofen 10 mg PO DAILY 07/10/24 [History] Buprenorphine [Butrans 7.5 MCG/HR] 1 patch TRANSDERM FR 07/10/24 [History] DULoxetine HCL [Cymbalta] 60 mg PO BID 07/10/24 [History] Ensure 1 can PO BID@0900,1700 07/10/24 [History] Mag Hydrox/Aluminum Hyd/Simeth [Mylanta Maximum Strength Liq] 30 ml PO Q6H PRN 07/10/24 [History] Morphine Sulfate Ir [MSIR] 15 mg PO Q6HR PRN 07/10/24 [History] Sennosides/Docusate Sodium [Senna Plus 8.6-50 mg Tablet] 1 tab PO DAILY 07/10/24 [History] Tetrahydrozoline 0.05% Ophth [Visine Eye Drops] 1 drop BOTH EYES QID PRN 07/10/24 [History] hydrALAZINE HCL [Apresoline] 50 mg PO TID PRN 07/10/24 [History] polyethylene glycoL 3350 [Miralax] 17 gm PO MOWEFR@2100 07/10/24 [History] Follow up Appointment(s)/Referral(s): Rox Zamudio MD [Primary Care Provider] - 1-2 days Ez Espinoza MD [STAFF PHYSICIAN] - 2 Weeks
--- NOTE | 2024-08-01 16:23 | P.PN ---
Subjective Progress Note Date: 07/31/24 Principal diagnosis: Reason for follow-up is complicated UTI Patient is a 64-year-old female with a past medical history significant for TIA depression did have history of left heel infected ulcer with osteomyelitis present to the hospital abdominal pain he did have a abdominal CT concerning for bilateral hydronephrosis hydroureter and question of cystitis with urine culture multiple pathogen prompted this consultation. On today's evaluation that is 07/31/2024, Patient is afebrile this morning patient denies having any chest pain shortness of breath or cough, the patient is currently on room air, patient denies any nausea vomiting circumventing abdominal pain and no diarrhea reported. No new lab has been obtained today Objective - Vital Signs Vital signs: Vital Signs Temp 96.8 F L 07/31/24 07:00 Pulse 82 07/31/24 07:00 Resp 18 07/31/24 07:00 BP 155/97 07/31/24 07:00 Pulse Ox 96 07/31/24 07:00 FiO2 Intake & Output 07/30/24 07/31/24 07/31/24 18:59 06:59 18:59 Intake Total 1605 Output Total 700 1100 Balance -700 505 Weight 81.647 kg Intake: Oral 1605 Output: Urine 700 1100 Other: Voiding Method Indwelling Catheter Indwelling Catheter Indwelling Catheter # Bowel Movements 1 - Exam GENERAL DESCRIPTION: An elderly female lying in bed in no distress RESPIRATORY SYSTEM: Unlabored breathing , decreased breath sounds at bases HEART: S1 S2 regular rate and rhythm , ABDOMEN: Soft , no tenderness, patient did have a stage III sacral pressure ulcer wound base looks clean no slough or surrounding redness EXTREMITIES: Left heel stage III ulcer but no slough tissue or surrounding redness - Labs CBC & Chem 7: 07/29/24 03:30 07/29/24 03:30 Assessment and Plan (1) Infection due to ESBL-producing Klebsiella pneumoniae Status: Acute Code(s): A49.8 - OTHER BACTERIAL INFECTIONS OF UNSPECIFIED SITE; Z16.12 - EXTENDED SPECTRUM BETA LACTAMASE (ESBL) RESISTANCE SNOMED Code(s): 807277346 (2) Hydronephrosis Status: Acute Code(s): N13.30 - UNSPECIFIED HYDRONEPHROSIS SNOMED Code(s): 06110777 (3) UTI (urinary tract infection) Status: Acute Code(s): N39.0 - URINARY TRACT INFECTION, SITE NOT SPECIFIED SNOMED Code(s): 08532654 (4) Leukocytosis Status: Acute Code(s): D72.829 - ELEVATED WHITE BLOOD CELL COUNT, UNSPECIFIED SNOMED Code(s): 650279874 Plan: 1patient presented to hospital with lower abdominal pain she also have significant mental status changes did have elevated white count meeting criteria for symptomatic/complicated UTI with urine culture showing multidrug-resistant pathogen including Pseudomonas he has been Klebsiella and E. coli 2left heel stage III pressure ulcer without cellulitis, patient does have a stage III sacral pressure ulcer, recommend to keep the area of the pressure and treat with a dry Aquacel silver dressing 3patient is afebrile patient urine is growing VRE, CT abdominal pelvis with improving bilateral hydronephrosis no other acute findings reported, 4patient has completed a 7-day course of daptomycin for the VRE UTI and the patient white count has normalized, no fever no, need for antibiotics on discharge Dictation was produced using [employer] dictation software. please excuse any grammatical, word or spelling errors. Time with Patient: Less than 30
--- NOTE | 2024-08-02 18:46 | CDI ---
Documentation Clarification Form Date: 08/02/2024 06:21:19 PM From: Marianne Hall Admit Date: 07/10/2024 02:21:00 AM Patient Name: Na Saxena Visit Number: [id number] Discharge Date: 07/31/2024 04:32:00 PM ATTENTION: The Clinical Documentation Specialists (CDI) and [facility] Coding Staff appreciate your assistance in clarifying documentation. Please respond to the clarification below the line at the bottom and electronically sign. The CDI & [facility] Coding staff will review the response and follow-up if needed. Please note: Queries are made part of the Legal Health Record. If you have any questions, please contact the author of this message via ITS. Doctor/Provider: Guido E Sheet Pneumonia secondary to ESBL Klebsiella is documented in the Discharge Summary 07/31/24 which may lack sufficient clinical evidence/support in the medical record. Patient was admitted for a 21 day stay starting on 07/09/24. Throughout the stay the patient denied any pulmonary complaints including shortness of breath, cough, wheezing, chest tightness, or phlegm production. Additional clarification is requested. History/Risk Factors: patient is a 64 year old female with a history of hearing disorder, lung cancer, back pain, TIAs, non-alcoholic cirrhosis, depression and former smoker. Clinical Indicators: presented for bilateral sharp severe abdominal pain without dysuria, or increased urinary urgency or frequency. CT showed bilateral hydronephrosis with thickened urinary bladder. Elevated white count in the urine. Diagnosed with UTI cystitis with hydronephrosis and urine culture positive for pseudomonas aeruginosa, ESBL producing Klebsiella pneumonia and E- Coli CTA chest 07/11/24 small right pleural effusion, medial right lower lobe consolidation. Correlate for pneumonia. CT abdomen 07/16/24 small right pleural effusion with right medial lower lobe consolidation redemonstrated. 07/28/24 x-ray right upper lobe and right lateral lung base infiltrates correlate for atelectasis Documentation of the patient being treated for pneumonia started on 07/27/24 Treatment: IV daptomycin Please clarify if pneumonia is a valid diagnosis and POA status. [ ] No, Pneumonia secondary to ESBL Klebsiella is ruled out [ ] Yes, Pneumonia secondary to ESBL Klebsiella is present as evidence by (additional clinical support) and was Present on Admission: [ ] Yes, Pneumonia secondary to ESBL Klebsiella is present as evidence by (additional clinical support) but was Not Present on Admission: [ ] Other (please specify diagnosis) [ ] Unable to determine Pneumonia secondary to gram-negative organism, Klebsiella pneumonia could be one of the possibilities as it is also seen in the urine culture.pneumonia was present on admission most likely Chest x-ray on 07/28/2024 showing right upper lobe moderate lateral lung base infiltrates. CTA visit on admission shows small right pleural effusion and medial right lower lobe consolidation. Correlate for pneumonia MTDD
== END 2024-07-31 16:32 | DRG 177 ==
LOC: EC 20:11 → 6NMEDSUR 07-10 02:20 → OBSVTOIN 07-10 02:21 → 6NMEDSUR 07-10 02:57 → 1SOBS 07-10 13:31 → 6NMEDSUR 07-10 13:48 → 4SSUR 07-10 17:38
PROVIDERS: ADMIT Hospitalist; ATTEND Hospitalist
PROC: 05HB33Z Insertion of Infusion Device into Right Basilic Vein, Percutaneous Approach (ICD-10-PCS; 2024-07-17 15:25)
PROC: 0DBP8ZX Excision of Rectum, Via Natural or Artificial Opening Endoscopic, Diagnostic (ICD-10-PCS; principal; 2024-07-19 07:00)
PROC: 0DBL8ZX Excision of Transverse Colon, Via Natural or Artificial Opening Endoscopic, Diagnostic (ICD-10-PCS; principal; 2024-07-19 07:00)
PROC: 0DB78ZX Excision of Stomach, Pylorus, Via Natural or Artificial Opening Endoscopic, Diagnostic (ICD-10-PCS; principal; 2024-07-19 07:00)
PROC: 0HBCXZX Excision of Left Upper Arm Skin, External Approach, Diagnostic (ICD-10-PCS; principal; 2024-07-19 07:00)
DX: J15.0 Pneumonia due to Klebsiella pneumoniae (principal); L89.153 Pressure ulcer of sacral region, stage 3; L89.623 Pressure ulcer of left heel, stage 3; D72.10 Eosinophilia, unspecified; G82.20 Paraplegia, unspecified; B96.5 Pseudomonas (aeruginosa) (mallei) (pseudomallei) as the cause of diseases classified elsewhere; B96.1 Klebsiella pneumoniae [K. pneumoniae] as the cause of diseases classified elsewhere; J90 Pleural effusion, not elsewhere classified; K74.60 Unspecified cirrhosis of liver; I10 Essential (primary) hypertension; Z68.34 Body mass index [BMI] 34.0-34.9, adult; F32.A Depression, unspecified; D64.9 Anemia, unspecified; N13.6 Pyonephrosis; Z16.24 Resistance to multiple antibiotics; Z16.21 Resistance to vancomycin; Z16.12 Extended spectrum beta lactamase (ESBL) resistance; N13.70 Vesicoureteral-reflux, unspecified; B94.8 Sequelae of other specified infectious and parasitic diseases; D75.839 Thrombocytosis, unspecified; M43.16 Spondylolisthesis, lumbar region; B96.20 Unspecified Escherichia coli [E. coli] as the cause of diseases classified elsewhere; M47.899 Other spondylosis, site unspecified; M48.00 Spinal stenosis, site unspecified; M54.9 Dorsalgia, unspecified; G89.29 Other chronic pain; K29.70 Gastritis, unspecified, without bleeding; K63.5 Polyp of colon; N31.9 Neuromuscular dysfunction of bladder, unspecified; S30.0XXA Contusion of lower back and pelvis, initial encounter; M54.10 Radiculopathy, site unspecified; L29.9 Pruritus, unspecified; R21 Rash and other nonspecific skin eruption; H91.90 Unspecified hearing loss, unspecified ear; E87.6 Hypokalemia; E66.9 Obesity, unspecified; D12.3 Benign neoplasm of transverse colon; Z53.29 Procedure and treatment not carried out because of patient's decision for other reasons; R41.0 Disorientation, unspecified; Z92.21 Personal history of antineoplastic chemotherapy; Z92.3 Personal history of irradiation; Z87.891 Personal history of nicotine dependence; Z87.440 Personal history of urinary (tract) infections; Z86.73 Personal history of transient ischemic attack (TIA), and cerebral infarction without residual deficits; Z85.118 Personal history of other malignant neoplasm of bronchus and lung; Z79.899 Other long term (current) drug therapy; Z74.01 Bed confinement status; Z79.891 Long term (current) use of opiate analgesic; Z88.2 Allergy status to sulfonamides; Z91.041 Radiographic dye allergy status; Z53.8 Procedure and treatment not carried out for other reasons; Z98.1 Arthrodesis status
CPT/HCPCS: 36410; 36415; 43239; 45380; 71045; 71046; 71275; 72070; 72100; 72192; 74176; 74177; 76604; 76937; 80048; 80053; 81001; 81219; 81270; 81279; 82150; 82607; 82728; 82747; 83540; 83550; 83605; 83690; 83735; 83880; 84132; 84145; 85025; 85027; 85045; 87040; 87077; 87086; 87186; 88305; 93005; 94760; 96361; 96365; 96366; 96375; 99285